=== PATIENT | male | born 1970 | race African-American/Black ===

== ENCOUNTER 2020-09-09 08:56 | Emergency (ER) | payer BC, SELFPAY ==
[2020-09-09 09:07] VITALS: BP 188/96; PULSE 92; RESP 16; TEMP 36.1; O2SAT 100
--- NOTE | 2020-09-09 09:13 | ED.SKABFB ---
HPI - Skin/Abscess/Foreign Bdy General Chief complaint: Skin/Abscess/Foreign Body Stated complaint: lt ankle sore Time Seen by Provider: 09/09/20 09:20 Source: patient and RN notes reviewed Mode of arrival: ambulatory Limitations: no limitations History of Present Illness HPI narrative: 50-year-old male with history of diabetes and diabetic neuropathy presents with concern for an open area of skin on the anterior aspect of his left ankle. Reports he took his sock off last night and a layer of skin came off with it. He denies any pain any redness any drainage, denies any known blister or wound in that area prior to last night. He denies any general malaise, fever, rash, blisters, skin changes in any other area. Denies any purulent drainage, surrounding erythema, edema from the wound. Related Data Home Medications Medication Instructions Recorded Confirmed metformin 500 mg PO DAILY 08/15/19 simvastatin mg 08/15/19 Allergies Allergy/AdvReac Type Severity Reaction Status Date / Time No Known Allergies Allergy Unknown Verified 09/09/20 09:13 Review of Systems Review of Systems: Narrative: CONSTITUTIONAL: Denies malaise, chills, sweats, or fever. CARDIOVASCULAR: Denies chest pain, palpitations, or edema. RESPIRATORY: Denies cough or dyspnea. SKIN: Reports a nonpainful wound in the anterior aspect of his left ankle MUSCULOSKELETAL: Denies myalgia. All systems reviewed & are unremarkable except as noted in HPI and below PMFSH Past Medical History Medical History (Updated 09/09/20 @ 09:31 by Radha Fiore NP) Hyperlipidemia Hypertension IDDM (insulin dependent diabetes mellitus) Family History Family History Mother Patient's mother is in good health Sibling Patient's brother is in good health Other Diabetes mellitus Family history of hypercholesterolemia Hypertension Social History Social History Smoking status: Never smoker Alcohol intake: never Comments At time of signature, agree with nursing past medical, surgical, social and family history. There is no relevant family history pertinent to the presenting complaint Exam Narrative: Exam Narrative: GENERAL: Well-appearing, well-nourished, and in no acute distress. HEAD: Normocephalic, atraumatic. EYES: PERRLA, conjunctivae clear, and EOMI. ENT: Mucous membranes moist. NECK: Supple. No lymphadenopathy CHEST: Clear to auscultation. No respiratory distress. HEART: Regular rate and rhythm. SKIN: Warm, dry. 8 cm in diameter superficial wound, with pink tissue bed, desquamation noted to the anterior ankle without surrounding erythema, edema, induration. No other skin abnormalities rashes, skin crusting, fissures, bullae noted NEURO: Alert and oriented x3. PSYCH: Normal mood and affect Course Course Emergency Course: Patient is aware of diagnosis, understands and agrees to treatment plan. Anticipatory guidance given. Patient agrees to follow-up as directed and is aware of reasons to seek care at the emergency department. Portions of this record may have been created with voice recognition software Vital Signs Vital signs: Vital Signs Temperature 97 F L 09/09/20 09:07 Pulse Rate 92 09/09/20 09:07 Respiratory Rate 16 09/09/20 09:07 Blood Pressure 188/96 H 09/09/20 09:07 Pulse Oximetry 100 09/09/20 09:07 Temperature 97 F L 09/09/20 09:14 Pulse Rate 92 09/09/20 09:14 Respiratory Rate 16 09/09/20 09:14 Blood Pressure 188/96 H 09/09/20 09:14 Pulse Oximetry 100 09/09/20 09:14 Reviewed. MDM - Skin/Abscess/Foreign Bdy MDM Narrative Medical decision making narrative: Does not appear at this time to be erythema multiforme, bullous, SJS, TEN; no evidence at this time to suggest RMSF, endocarditis or Lyme disease; patient looks well, nontoxic and is tolerating oral intake; no neurologic signs or sy
[2020-09-09 09:14] VITALS: BP 188/96; PULSE 92; RESP 16; TEMP 36.1; O2SAT 100
== END 2020-09-09 09:34 | disposition home or self-care (01) ==
PROVIDERS: Emergency Provider Nurse Practitioner; PCP Internal Medicine
DX: S91.302A Unspecified open wound, left foot, initial encounter (principal); X58.XXXA Exposure to other specified factors, initial encounter; E11.42 Type 2 diabetes mellitus with diabetic polyneuropathy; E78.5 Hyperlipidemia, unspecified; I10 Essential (primary) hypertension; Z79.84 Long term (current) use of oral hypoglycemic drugs
CPT/HCPCS: 99213; G0463

== ENCOUNTER 2023-10-06 21:24 | Inpatient (IN) | payer OTHER, SELFPAY ==
--- NOTE | ~2023-10-06 | CT_ITS ---
EXAMINATION: CT abdomen pelvis wo con DATE: 10/06/2023 22:33 INDICATION: Renal failure TECHNIQUE: Computed tomography (CT) of the abdomen and pelvis was performed without intravenous contr ast. The dose-length product (DLP) was 1435.61 mGy-cm. Automated exposure control and iterative recon struction technique were employed. COMPARISON: None FINDINGS: Minimal dependent atelectasis is present in the lung bases. The heart size is normal. The l iver, spleen, pancreas, gallbladder, and adrenal glands are normal. The left kidney is unremarkable. There is a 3.1 cm cyst of the right kidney. No pathologically enlarged abdominal or pelvic lymph node s are identified. No free intraperitoneal gas or evidence of bowel obstruction. The appendix is rey l. There is moderate lumbar spondylosis at L5-S1. A tiny umbilical hernia containing fat is noted. IMPRESSION: 1. No CT correlate for the patient's symptoms. Reviewed, dictated and finalized at location F. GAGE LOAN OFFICER ORIGINATOR
--- NOTE | ~2023-10-06 | US_ITS ---
Renal-Bladder ultrasound Clinical History: Elevated creatinine Technique: Real-time sonographic imaging of the kidneys and urinary bladder was performed. Findings: The right kidney measures 11 point cm in length and the left kidney measures 11.6 cm. There is no hydronephrosis or renal calculus identified. Renal cortical echogenicity is within normal limi ts. No solid renal mass lesion is identified. The urinary bladder is moderately distended at the time of this exam. No intraluminal echoes are iden tified. No abnormal wall thickening is seen. Impression: Unremarkable ultrasound of the kidneys and urinary bladder. Reviewed, dictated and finalized at location M. ET TECHNICIAN Impression: Unremarkable ultrasound of the kidneys and urinary bladder.
[2023-10-06 21:28] VITALS: BP 202/96; PULSE 99; RESP 17; TEMP 36.1; O2SAT 100
[2023-10-06 22:21] LABS: Basophils Percent Auto 0.6 % (0.2-1.2); Eosinophils Absolute Auto 0.1 K/mm3 (0-0.3); Eosinophils Percent Auto 1.2 % (0-4.4); Hematocrit 22.4 % (42.0-52.0); Immature Granulocyte Absolute 0.04 K/mm3 (0.00-0.031); Immature Granulocyte Percent A 0.6 % (0-0.5); Lymphocytes Absolute Auto 1.08 K/mm3 (0.9-3.2); Lymphocytes Percent Auto 14.9 % (18.3-44.2); Mean Corpuscular HGB Conc 29.9 g/dl (32-36); Mean Corpuscular Hemoglobin 25.6 pg (26-34); Mean Corpuscular Volume 85.5 fl (80-100); Mean Platelet Volume 11.6 fl (7.4-10.4); Monocytes Absolute Auto 0.5 K/mm3 (0.1-0.6); Monocytes Percent Auto 6.9 % (2.6-8.5); Neutrophils Absolute Auto 5.5 K/mm3 (1.3-6.7); Neutrophils Percent Auto 75.8 % (45.5-73.1); Platelet Count Result 197 k/mm3 (150-375); Red Blood Count 2.62 M/mm3 (4.6-6.20); Red Cell Distribution Width 13.8 % (11.5-14.5); White Blood Count 7.3 K/mm3 (4.5-10.0)
--- NOTE | 2023-10-06 22:24 | ED.GENADULT ---
HPI - General Adult General Chief complaint: Recheck/Abnormal Lab/Rx Stated complaint: elevated kidney labs Time Seen by Provider: 10/06/23 22:07 History of Present Illness HPI narrative: Patient intermittently 53-year-old gentleman who presents emergency department with chief complaint of abnormal labs. Patient had a outpatient primary care visit and they had decided to check blood work on him patient was found to have significant elevated renal function on his labs and was instructed to go to the emergency department patient currently has no complaints the patient reports that week or so ago he did not feel so well and has improved and is feeling much better now Related Data Home Medications Medication Instructions Recorded Confirmed metformin 500 mg tablet 500 mg PO DAILY 08/15/19 simvastatin 80 mg tablet mg 08/15/19 Allergies Allergy/AdvReac Type Severity Reaction Status Date / Time No Known Allergies Allergy Unknown Verified 10/06/23 23:08 Review of Systems Review of Systems: A 10 system review of systems was completed on the patient and is negative except for what is stated in the HPI. Nursing and ancillary documentation was reviewed. FORMERLY [facility] Past Medical History Medical History (Updated 10/07/23 @ 01:56 by Jeff Hart MD) Hyperlipidemia Hypertension IDDM (insulin dependent diabetes mellitus) Family History Family History Mother Patient's mother is in good health Sibling Patient's brother is in good health Other Diabetes mellitus Family history of hypercholesterolemia Hypertension Social History Social History Smoking status: Never smoker Alcohol intake: never Exam Narrative: GENERAL: Well-appearing, well-nourished, and in no acute distress. HEAD: Normocephalic, atraumatic. EYES: PERRLA and EOMI. ENT: Nares clear, no rhinorrhea or epistaxis. Mucous membranes moist. NECK: Supple. CHEST: Clear to auscultation. No respiratory distress. HEART: Regular rate and rhythm. No murmur heard. Normal peripheral pulses. ABDOMEN: Soft, nontender, nondistended, normal active bowel sounds. EXTREMITIES: Normal range of motion. trace edema to bilateral lower extremities. SKIN: Warm, dry, no rash. NEURO: No focal deficits. Alert and oriented x3. PSYCH: Normal mood and affect. Course Vital Signs Vital signs: Vital Signs Temperature 36.1 C L 10/06/23 21:28 Pulse Rate 99 10/06/23 21:28 Respiratory Rate 17 10/06/23 21:28 Blood Pressure 202/96 H 10/06/23 21:28 Pulse Oximetry 100 10/06/23 21:28 Oxygen Delivery Room Air 10/06/23 21:28 Temperature 36.7 C 10/07/23 01:46 Pulse Rate 86 10/07/23 01:46 Respiratory Rate 17 10/07/23 01:46 Blood Pressure 159/63 H 10/07/23 01:46 Pulse Oximetry 98 10/07/23 01:46 Oxygen Delivery Room Air 10/06/23 21:28 Medical Decision Making MDM Narrative Medical decision making narrative: differential diagnosis includes GI bleed, renal failure, hypertensive urgency, acute on chronic renal failure, patient is negative for acute GI bleed on rectal exam. The patient was found to be significantly anemic with a hemoglobin of 6.7. Patient's creatinine was 7.8 with a BUN of 69. The patient was also found to have had a CPK of 4198 case was discussed with both the hospitalist and Nephrology the patient will be admitted to the hospitalist service Vital Signs Vital Signs: Vital Signs Temperature 36.1 C L 10/06/23 21:28 Pulse Rate 99 10/06/23 21:28 Respiratory Rate 17 10/06/23 21:28 Blood Pressure 202/96 H 10/06/23 21:28 Pulse Oximetry 100 10/06/23 21:28 Oxygen Delivery Room Air 10/06/23 21:28 Temperature 36.7 C 10/07/23 01:46 Pulse Rate 86 10/07/23 01:46 Respiratory Rate 17 10/07/23 01:46 Blood Pressure 159/63 H 10/07/23 01:46 Pulse Oxim
[2023-10-06 22:34] LABS: Alanine Aminotransferase 22 U/L (6-50); Alkaline Phosphatase 62 U/L (38-126); Anion Gap 11 mmol/L (8-16); Aspartate Amino Transferase 33 U/L (17-59); Bilirubin,Total 0.3 mg/dL (0.2-1.3); Blood Urea Nitrogen 69 mg/dL (9-20); Carbon Dioxide 20 mmol/L (22-30); Chloride 110 mmol/L (98-107); Estimated CRCL calculation 15 ml/min; Estimated Glomerular Filt Rate 9; Glucose 117 mg/dL (65-110); Magnesium 1.1 mg/dL (1.6-2.3); Sodium 141 mmol/L (137-145)
[2023-10-06 22:39] LABS: Hemoglobin 6.7 g/dL (14.0-18.0)
[2023-10-06 22:40] LABS: Anisocytosis 1+ (NORMAL); Hypochromasia 2+ (NORMAL); Ovalocytes 1+ (NORMAL); Platelet Estimate Adequate (Adequate); Schistocytes 1+ (NORMAL)
[2023-10-06] MEDS: MAGNESIUM SULF 2 GM/WATER 50ML 2 GM/50 ML BAG IVPB (23:19)
[2023-10-06] MEDS: SODIUM CHLORIDE 0.9% IV 1,000 ML 999 ML IV CONT (23:19)
[2023-10-06 23:38] LABS: Appearance Urine Clear (Clear); Bacteria Urine None Seen /hpf; Bilirubin Urine Negative (Negative); Blood Urine 2+ (Negative); Color Urine Yellow (Yellow); Glucose Urine UA Negative (Negative); Ketones Urine Negative (Negative); Leukocyte Esterase Ur Negative LEU/UL (Negative); Nitrate Urine Negative (Negative); Protein Urine 3+ mg/dL (Negative); RBC Urine 0-2 /hpf (0-2); Specific Grav Ur 1.013 (1.001-1.035); Squamous Epithelial Cell Urine None seen /hpf (Few); Urobilinogen Urine 0.2 mg/dL (<2.0); WBC Urine 0-5 /hpf
[2023-10-06 23:44] LABS: Add Urine Microscopic? YES
[2023-10-06 23:56] VITALS: BP 178/90; PULSE 88; RESP 13; O2SAT 98
[2023-10-07] VITALS (14 sets, daily range): BP systolic 158–182; BP diastolic 63–97; PULSE 86–96; RESP 15–26; TEMP 36.3–36.7; O2SAT 95–100; BMI 33.9
[2023-10-07 00:17] LABS: Fibrinogen 489 mg/dl (215-510)
[2023-10-07 00:49] LABS: Immature Reticulocyte Fraction 9.4 % (3.0-15.9); Reticulocyte Hemoglobin Conten 29.1 pg (28.2-35.7); Reticulocyte Percent 1.11 % (0.7-4.3); Reticulocytes Absolute 0.03 M/mm3 (0.02-0.1)
[2023-10-07 00:58] LABS: Lactate Dehydrogenase 451 U/L (120-246)
[2023-10-07 01:03] LABS: Phosphorus 5.3 mg/dL (2.5-4.5)
[2023-10-07 01:05] LABS: Transferrin 149 mg/dL (206-381)
[2023-10-07 01:28] LABS: Creatine Kinase 4198 U/L (55-170)
[2023-10-07] MEDS: SODIUM CHLORIDE 0.9% IV 250 ML 30 ML IV CONT (01:32)
[2023-10-07] MEDS: TUBING, BLOOD PLUM PUMP TUBING 1 EACH XX (01:33)
[2023-10-07 02:12] LABS: Iron 47 ug/dL (49-181)
[2023-10-07 02:23] LABS: Percent Iron Saturation 20 % (20-50)
[2023-10-07] MEDS: hydrALAZINE HCL 20 MG/ML VIAL 10 MG IV PUSH (03:02)
[2023-10-07] MEDS: SODIUM CHLORIDE 0.9% IV 1,000 ML 150 ML IV CONT ×3 (03:03→20:27)
[2023-10-07 03:38] LABS: Folic Acid 10.9 ng/mL (2.76->20)
--- NOTE | 2023-10-07 04:17 | ADMGEN ---
This patient, Jose Jara, was admitted to Medical Room 253-01. Patient/family oriented to hospital policies and general routines including ID bracelet, bed and alarms, visiting hours, pain management, procedures, bathroom and other care routines, personal items, smoking policy, room service/diet, and visiting hours. Information on how to activate the Rapid Response Team has been discussed. Patient/Family are encouraged to report perceived risks to care and to ask questions if they do not understand what they are told or what they should do.
[2023-10-07 06:17] LABS: Basophils Percent Auto 0.3 % (0.2-1.2); Eosinophils Absolute Auto 0.1 K/mm3 (0-0.3); Eosinophils Percent Auto 1.1 % (0-4.4); Hematocrit 23.2 % (42.0-52.0); Immature Granulocyte Absolute 0.02 K/mm3 (0.00-0.031); Immature Granulocyte Percent A 0.3 % (0-0.5); Lymphocytes Absolute Auto 1.06 K/mm3 (0.9-3.2); Lymphocytes Percent Auto 14.5 % (18.3-44.2); Mean Corpuscular HGB Conc 30.2 g/dl (32-36); Mean Corpuscular Volume 86.2 fl (80-100); Mean Platelet Volume 11.9 fl (7.4-10.4); Monocytes Absolute Auto 0.5 K/mm3 (0.1-0.6); Monocytes Percent Auto 6.2 % (2.6-8.5); Neutrophils Absolute Auto 5.7 K/mm3 (1.3-6.7); Neutrophils Percent Auto 77.6 % (45.5-73.1); Platelet Count Result 188 k/mm3 (150-375); Red Blood Count 2.69 M/mm3 (4.6-6.20); Red Cell Distribution Width 13.7 % (11.5-14.5); White Blood Count 7.3 K/mm3 (4.5-10.0)
[2023-10-07 06:32] LABS: Complement C3 107 mg/dL (88-165)
[2023-10-07 06:34] LABS: Alanine Aminotransferase 21 U/L (6-50); Albumin Level 3.8 g/dL (3.5-5.1); Alkaline Phosphatase 66 U/L (38-126); Anion Gap 8 mmol/L (8-16); Aspartate Amino Transferase 33 U/L (17-59); Bilirubin,Total 0.3 mg/dL (0.2-1.3); Blood Urea Nitrogen 68 mg/dL (9-20); Carbon Dioxide 20 mmol/L (22-30); Chloride 113 mmol/L (98-107); Estimated CRCL calculation 15 ml/min; Estimated Glomerular Filt Rate 9; Glucose 100 mg/dL (65-110); Potassium 4.8 mmol/L (3.4-5.0); Sodium 141 mmol/L (137-145)
[2023-10-07 06:49] LABS: Iron 45 ug/dL (49-181)
[2023-10-07 06:57] LABS: Phosphorus 5.6 mg/dL (2.5-4.5)
[2023-10-07 06:59] LABS: Percent Iron Saturation 22 % (20-50)
[2023-10-07 07:09] LABS: Creatine Kinase 4366 U/L (55-170)
[2023-10-07 07:21] LABS: Hepatitis B Surface Antigen Negative (Negative)
--- NOTE | 2023-10-07 07:27 | PM.IMHP ---
H&P: HPI History of Present Illness Date/Time: 10/07/23 0:600 Chief Complaint: Low hemoglobin Narrative: 53-year-old male with a past medical history of type 2 diabetes mellitus, diabetic retinopathy essential hypertension, noncompliant with medication therapy, and obesity who presented to the ER from home after outpatient labs demonstrated acute renal failure and anemia. The patient reports that he went to his primary care physician's office for his yearly physical due to pressure from his . He reports that he had otherwise been feeling well but under further questioning he does admit to some increased fatigue and some shortness of breath with exertion over the last week. He did not realize anything was significantly wrong. Although he does have a history diabetes and hypertension he quit taking his metformin and lisinopril without informing his primary care provider. He has been off these medications for minimum of 4 months but on review of his external medication reconciliation it does not look as if he has nicely been on medications for probably a here in the he is getting them filled outside conventional methods. He denies any hematuria, changes in urinary frequency, urine amount or coloration. He has not had any dark stools or bloody stools. His Hemoccult in the ER was negative. He does have a history of hypertension and has not been checking his blood pressures at home but when he was as primary care physician's office day before yesterday his blood pressures were elevated in the 170s systolic. On arrival to the ER his blood pressures were between 202/96 to 158/90. He denies any headache or vision changes, dizziness or syncope. He does snore quite badly. He has never been evaluated for sleep apnea. He does fall asleep while watching TV in feels fatigued often. He reports chronic lower extremity swelling. He is noted to have 3+ protein in his urine but denies any foamy urine. He denies history of diabetic peripheral neuropathy but does have a history of nonhealing ulcer to his anterior dorsum of the foot and ankle on the left in the past. He had she denies changes in bowels. His Hemoccult performed in the ER was negative. He has never had a colonoscopy or EGD. He denies difficulty swallowing. He denies any petechiae or rashes. He has not had any NSAID use. He denies any recent antibiotic use. Review of Systems Review of Systems: 12 systems were reviewed with pertinent positives and negatives per HPI. Except as documented in the HPI, all other systems were reviewed and are negative. FORMERLY [facility], [facility] Past Medical History Medical History (Updated 10/07/23 @ 07:52 by Oralia Newsome DO) Diabetic retinopathy Hyperlipidemia Hypertension Obesity (BMI 30.0-34.9) Type 2 diabetes mellitus Surgical History Surgical History (Updated 10/07/23 @ 07:36 by Oralia Newsome DO) Proliferative diabetic retinopathy with history of surgery Family History Family History (Updated 10/07/23 @ 07:39 by Oralia Newsome DO) Mother Thyroid disease Sibling Thyroid disease Father Diabetes mellitus End stage renal disease Hypertension Social History Social History (Updated 10/07/23 @ 07:40 by Oralia Newsome DO) Social History: Patient lives at home with his 24 years. 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 They have (I think he has had 2 children) who are healthy. He is a lifelong nonsmoker. He does not have any significant out alcohol or illicit substance use history. Code status: Full code Surrogate decision maker: Smoking status: Never smoker Alcohol intake: never Substance use: never Do You Feel Safe in your Home?: Yes Lack of Transportation: No Lack of Food: Never True Current Housing: I Have Housing Concerned About Future Housing: No Difficulty Paying Gas/Electric Bills: No Difficulty Paying for Meds: No Currently Unemployed: No Education: Associate Degree Difficulty w/ Chil
[2023-10-07 07:39] LABS: Hepatitis B Surface Anti Res Negative
[2023-10-07] MEDS: amLODIPine BESYLATE 5 MG TABLET PO (08:39)
[2023-10-07 08:51] LABS: Hemoglobin A1C 5.9 % (<5.7)
[2023-10-07 09:14] LABS: Urea Random Urine 429 MG/DL
[2023-10-07 09:17] LABS: Creatinine Urine 76.4 mg/dL
[2023-10-07 09:18] LABS: Sodium Urine Random 81 meq/L
[2023-10-07 10:22] LABS: Total Protein Urine Random 358 mg/dL; Ur Ttl Prot Creatinine Ratio 4.69 mg/mg (0-0.20)
[2023-10-07 10:43] LABS: Eosinophil Urine Rare % (None Seen); Urine Eos QC 2nd Tech Confirmed
[2023-10-07] MEDS: CALCIUM GLUCONATE 1,000 MG/10 ML VIAL 1000 MG IV PUSH (11:08)
--- NOTE | 2023-10-07 12:17 | PM.CNNEP ---
Assessment and Plan Assessment and plan (1) Renal insufficiency: Code(s): N28.9 - Disorder of kidney and ureter, unspecified Status: Acute Assessment and Plan: acute versus chronic versus acute on chronic? no previous/recent labs to compare to prior to this admission (last labs available are from 2017 and creatinine was normal at that time) however, given relative stability in potassium and CO2 levels, suspect a chronic issue evaluation to date noted: urine electrolytes non-prerenal renal ultrasound/CT of abdomen negative for any pathology UA with 3+ protein and 2+ blood nephrotic range proteinuria noted urine eosinophils negative CPK elevated - unclear why extensive serological testing pending no improvement with IVFs to date consider renal biopsy for definitive diagnosis? follow trend of repeat labs and UOP (2) Anemia: Qualifiers: Anemia type: unspecified type Qualified Code(s): D64.9 - Anemia, unspecified Code(s): D64.9 - Anemia, unspecified Status: Acute Assessment and Plan: H/H low on admission s/p PRBC transfusion anemia studies with reasonable iron stores (but testing done post-transfusion) follow trend of H/H consider empiric TYLOR use (3) Elevated CPK: Code(s): R74.8 - Abnormal levels of other serum enzymes Status: Acute Assessment and Plan: CPK elevated - reason? follow trend contributing component to #1(?) (4) Hypertension: Qualifiers: Hypertension type: unspecified Qualified Code(s): I10 - Essential (primary) hypertension Code(s): I10 - Essential (primary) hypertension Status: Chronic Assessment and Plan: quite elevated on admission given #1, would avoid overcontrol for fear of causing renal hypoperfusion aim to keep systolic BP around 160 - 170 systolic for now (5) Type 2 diabetes mellitus: Qualifiers: Diabetes mellitus complication detail: with nephropathy Diabetes mellitus complication status: with kidney complications Diabetes mellitus intermediate insulin use: without terminal gauger supervisor use Qualified Code(s): E11.21 - Type 2 diabetes mellitus with diabetic nephropathy Code(s): E11.9 - Type 2 diabetes mellitus without complications Status: Chronic Assessment and Plan: follow accu-cheks glycemic control per hospitalists Long extensive discussion ( greater than 20 minutes) with the patient as well as his family at bedside regarding his significant renal/kidney disease as evidence by his admission labs. I voiced my concerns that the patient may have significant chronic kidney disease and there may not be a reversible component to this issue. Extensive testing is underway but I also discussed with the patient the possibility of doing a renal biopsy as it may also give a more definitive diagnosis as to the cause of his renal dysfunction whether it be acute, or chronic, or acute on chronic. I also informed the patient that if his renal function fails to improve, he may likely need renal replacement therapy/dialysis in the near future. He appeared to voice understanding to all of these issues. I will continue follow patient with you while he remains hospitalized make further recommendations as deemed necessary. Thank you for allowing me to participate in the care of this patient. History of Present Illness Reason for Consult Consult date: 10/07/23 Reason for consult: acute renal failure (versus chronic kidney disease) Chief Complaint Chief complaint: Renal Failure,Anemia History of Present Illness Narrative: The patient is a 53-year-old male with a past medical history as outlined below who presented to [facility] room on the recommendation of his primary care physician due to abnormal outpatient labs. The patient went to see his primary care physician recently for his yearly physical although he freely admit
--- NOTE | 2023-10-07 12:17 | P.CONNP_ITS ---
Assessment and Plan Assessment and plan (1) Renal insufficiency: Code(s): N28.9 - Disorder of kidney and ureter, unspecified Status: Acute Assessment and Plan: * acute versus chronic versus acute on chronic? * no previous/recent labs to compare to prior to this admission (last labs available are from 2017 and creatinine was normal at that time) * however, given relative stability in potassium and CO2 levels, suspect a chronic issue * evaluation to date noted: * urine electrolytes non-prerenal * renal ultrasound/CT of abdomen negative for any pathology * UA with 3+ protein and 2+ blood * nephrotic range proteinuria noted * urine eosinophils negative * CPK elevated - unclear why * extensive serological testing pending * no improvement with IVFs to date * consider renal biopsy for definitive diagnosis? * follow trend of repeat labs and UOP (2) Anemia: Qualifiers: Anemia type: unspecified type Qualified Code(s): D64.9 - Anemia, unspecified Code(s): D64.9 - Anemia, unspecified Status: Acute Assessment and Plan: * H/H low on admission * s/p PRBC transfusion * anemia studies with reasonable iron stores (but testing done post-transfusion) * follow trend of H/H * consider empiric TYLOR use (3) Elevated CPK: Code(s): R74.8 - Abnormal levels of other serum enzymes Status: Acute Assessment and Plan: * CPK elevated - reason? * follow trend * contributing component to #1(?) (4) Hypertension: Qualifiers: Hypertension type: unspecified Qualified Code(s): I10 - Essential (p rimary) hypertension Code(s): I10 - Essential (primary) hypertension Status: Chronic Assessment and Plan: * quite elevated on admission * given #1, would avoid overcontrol for fear of causing renal hypoperfusion * aim to keep systolic BP around 160 - 170 systolic for now (5) Type 2 diabetes mellitus: Qualifiers: Diabetes mellitus complication detail: with nephropathy Diabetes mellitus complication status: with kidney complications Diabetes mellitus intermediate card tender insulin use: without halfway use Qualified Code(s): E11.21 - Type 2 diabetes mellitus with diabetic nephropathy Code(s): E11.9 - Type 2 diabetes mellitus without complications Status: Chronic Assessment and Plan: * follow accu-cheks * glycemic control per hospitalists Long extensive discussion ( greater than 20 minutes) with the patient as well as his family at bedside regarding his significant renal/kidney disease as evidence by his admission labs. I voiced my concerns that the patient may have significant chronic kidney disease and there may not be a reversible component to this issue. Extensive testing is underway but I also discussed with the patient the possibility of doing a renal biopsy as it may also give a more definitive diagnosis as to the cause of his renal dysfunction whether it be acute, or chronic, or acute on chronic. I also informed the patient that if his renal function fails to improve, he may likely need renal replacement therapy/dialysis in the near future. He appeared to voice understanding to all of these issues. I will continue follow patient with you while he remains hospitalized make further recommendations as deemed necessary. Thank you for allowing me to participate in the care of this patient. History of Present Illness Reason for Consult Consult date: 10/07/23 Reason for consult: acute renal failure (versus chronic kidney disease) Chief Complaint Chief compl
--- NOTE | 2023-10-07 14:49 | PM.IMPN ---
Progress Note: A&P Assessment and Plan (1) Acute renal failure: Qualifiers: Acute renal failure type: unspecified Qualified Code(s): N17.9 - Acute kidney failure, unspecified Code(s): N17.9 - Acute kidney failure, unspecified Status: Acute Assessment and Plan: Patient has new onset of renal failure. He denies prior history of chronic kidney disease. His renal failure is likely combination of complications from is uncontrolled hypertension in diabetes. Patient does have significant elevation in his CK so some component of rhabdomyolysis is also possible. However the patient has not been sedentary ahead in the extreme muscle exertion or injury. Will repeat electrolyte panel in a.m. as well as anemia labs and CBC. Will await further recommendations from Nephrology. Will monitor strict I&O's. Renal ultrasound no abnormalities (2) Hypertension: Qualifiers: Hypertension type: unspecified Qualified Code(s): I10 - Essential (primary) hypertension Code(s): I10 - Essential (primary) hypertension Status: Acute Assessment and Plan: Patient has stopped taking his hypertensive medication. He takes lisinopril at home. Will discontinue this as he should be on a CCB. (3) Type 2 diabetes mellitus: Qualifiers: Diabetes mellitus chcf insulin use: without long term care phlebotomist use Diabetes mellitus complication status: with kidney complications Diabetes mellitus complication detail: with nephropathy Qualified Code(s): E11.21 - Type 2 diabetes mellitus with diabetic nephropathy Code(s): E11.9 - Type 2 diabetes mellitus without complications Status: Acute Assessment and Plan: Insulin Lispro sliding scale, Accu-checks qAc and HS and Hold oral hypoglycemics Initiate hypoglycemic precautions HgbA1c 5.9 (4) Elevated CPK: Code(s): R74.8 - Abnormal levels of other serum enzymes Status: Acute Assessment and Plan: Patient does have significant elevation in his CK so some component of rhabdomyolysis is also possible. However the patient has not been sedentary ahead in the extreme muscle exertion or injury. Continue to trend labs (5) Anemia: Qualifiers: Anemia type: unspecified type Qualified Code(s): D64.9 - Anemia, unspecified Code(s): D64.9 - Anemia, unspecified Status: Acute Assessment and Plan: no sign of acute bleed patient found to have a hemoglobin hematocrit of 6.7/22.4. Hemoccult negative. Patient has mildly low iron. Add supplementation. Anemia could be due to kidney dysfunction. (6) History of noncompliance with medical treatment: Code(s): Z91.199 - Patient's noncompliance with other medical treatment and regimen due to unspecified reason Status: Acute (7) Snoring: Code(s): R06.83 - Snoring Status: Acute Assessment and Plan: Patient does have snoring, crowded posterior oropharynx, large neck circumference and excessive daytime sleepiness. He would benefit from outpatient polysomnogram. Apnea link ordered. Subjective Date/time seen: 10/07/23 14:49 Interval history: Patient sitting up in bed with at bedside. Patient has no complaints at this time and says that he feels just like himself. He was told to come to the hospital due to his lab results. He states that he urinates frequently and denies any new issues with this. Also denies chest pain, shortness a breath, nausea, vomiting. Exam Narrative: GENERAL: Comfortable, no acute distress HENMT: moist mucous membranes EYES: EOM intact b/l NECK: no lymphadenopathy RESPIRATORY: clear to auscultation CARDIO: RRR GI: soft, nontender, bowel sounds present SKIN: no rashes EXTREMITIES: no edema, redness or tenderness Objective Data Vital Signs Vital Signs: Vital Signs - 24 hr 10/06/23 21:28 10/06/23 23:56 10/07/23 0
[2023-10-07] MEDS: MAGNESIUM SULF 2 GM/WATER 50ML 2 GM/50 ML BAG IVPB (16:07)
[2023-10-07 17:10] LABS: Glucose Point of Care 105 mg/dl (65-105)
--- NOTE | 2023-10-07 19:24 | PC.NURSE ---
I reviewed the License Pending RN's documentation and agree with the findings.
[2023-10-07 21:32] LABS: Glucose Point of Care 90 mg/dl (65-105)
[2023-10-08] VITALS (16 sets, daily range): BP systolic 132–180; BP diastolic 66–90; PULSE 77–87; RESP 12–20; TEMP 36.3–37.1; O2SAT 93–100
--- NOTE | 2023-10-08 | ECHO_ITS ---
Patient Info Name: Jose Jara Age: 53 years : 1970 Gender: Male Ht: 75 in Wt: 264 lbs BSA: 2.55 m2 BP: 135 / 72 mmHg Technical Quality: Good Exam Date: 10/08/2023 3:09 PM Exam Location: [facility] Lab Patient Status: Inpatient Admit Date: 10/07/2023 Staff Ordering Physician: Irina Lloyd PA-C [employer] Worker: Yuli Xiao RDCS Attending Provider: Oralia Newsome DO Referring Physician: Gabino SEAMAN; Exam Type: CA echo doppler color flow Study Info Indications - Lower extremity edema Complete two-dimensional, color flow and Doppler transthoracic echocardiogram is performed. Summary 1. Complete two-dimensional, color flow and Doppler transthoracic echocardiogram is performed. 2. Left ventricular chamber dimension is moderately enlarged. 3. Left ventricular systolic function is normal, estimated at 55-60%. 4. The left ventricular diastolic function is normal. 5. Left atrial chamber dimension is mildly enlarged. 6. No pulmonary hypertension, estimated pulmonary arterial systolic pressure is 16 mmHg. 7. There is trace pulmonic regurgitation. Left Ventricle Tissue doppler E/e' is not performed. Left ventricular chamber dimension is moderately enlarged. Left ventricular systolic function is normal, estimated at 55-60%. The left ventricular diastolic function is normal. Right Ventricle Right ventricular systolic function is normal and with normal TAPSE 2.1 cm. Right ventricular chamber dimension is normal. Left Atria Left atrial chamber dimension is mildly enlarged. Right Atria Right atrial chamber dimension is normal. Aortic Valve The aortic valve is trileaflet. There is no aortic valve stenosis. There is no aortic valve regurgitation. Pulmonic Valve There is trace pulmonic regurgitation. Mitral Valve There is no mitral valve stenosis. There is no mitral valve regurgitation. Tricuspid Valve There is no tricuspid valve regurgitation. No pulmonary hypertension, estimated pulmonary arterial systolic pressure is 16 mmHg. Pericardium/Pleural There is no pericardial effusion. Inferior Vena Cava Normal inferior vena cava with >50% collapse upon inspiration consistent with normal right atrial pressure, 5 mmHg. Aorta The aortic root size at the sinus of Valsalva is normal. Left Ventricular Outflow Tract Name Value Normal LVOT 2D LVOT Diameter 2.3 cm LVOT Doppler LVOT Peak Gradient 4 mmHg LVOT Mean Gradient 2 mmHg LVOT VTI 22 cm LVOT VTI/AV VTI Ratio 0.9 LVOT Stroke Volume 93 ml LVOT CO 7.2 l/min LVOT CI 2.8 l/min/m2 Pulmonic Valve Name Value Normal RVOT Doppler RVOT Peak Gradient 4 mmHg PV Doppler PV Peak Grad
[2023-10-08 00:19] LABS: Glucose Point of Care 88 mg/dl (65-105)
[2023-10-08] MEDS: SODIUM CHLORIDE 0.9% IV 1,000 ML 150 ML IV CONT (03:15)
[2023-10-08 05:15] LABS: Hematocrit 21.2 % (42.0-52.0); Mean Corpuscular HGB Conc 30.2 g/dl (32-36); Mean Corpuscular Volume 86.2 fl (80-100); Platelet Count Result 160 k/mm3 (150-375); Red Blood Count 2.46 M/mm3 (4.6-6.20); Red Cell Distribution Width 13.8 % (11.5-14.5); White Blood Count 6.9 K/mm3 (4.5-10.0)
[2023-10-08 05:18] LABS: Hemoglobin 6.4 g/dL (14.0-18.0)
[2023-10-08 05:34] LABS: Anion Gap 11 mmol/L (8-16); Blood Urea Nitrogen 63 mg/dL (9-20); Calcium 5.1 mg/dL (8.4-10.2); Carbon Dioxide 17 mmol/L (22-30); Chloride 115 mmol/L (98-107); Cholesterol 184 mg/dL (0-200); Estimated CRCL calculation 15 ml/min; Estimated Glomerular Filt Rate 9; Glucose 96 mg/dL (65-110); HDL Direct 24 mg/dL; Magnesium 1.7 mg/dL (1.6-2.3); Potassium 5.2 mmol/L (3.4-5.0); Sodium 143 mmol/L (137-145); Triglycerides 168 mg/dL (<150)
[2023-10-08 05:38] LABS: LDL Cholesterol Direct 99 mg/dL
[2023-10-08 05:44] LABS: Creatine Kinase 3620 U/L (55-170)
[2023-10-08 08:35] LABS: Glucose Point of Care 85 mg/dl (65-105)
[2023-10-08] MEDS: EPOETIN ALFA-EPBX 10,000 UNITS/ML VIAL 10000 UNITS SUB-Q (10:13)
[2023-10-08] MEDS: NIFEdipine 30 MG TAB.ER.24 PO (10:15)
[2023-10-08] MEDS: METOPROLOL TARTRATE 25 MG TABLET PO ×2 (10:15→20:41)
[2023-10-08] MEDS: SODIUM BICARBONATE TAB 650 MG TABLET PO ×2 (10:16→17:52)
--- NOTE | 2023-10-08 11:01 | PM.PNNEP ---
Progress Note: A&P Assessment and Plan (1) Renal insufficiency: Code(s): N28.9 - Disorder of kidney and ureter, unspecified Status: Acute Assessment and Plan: acute versus chronic versus acute on chronic? no previous/recent labs to compare to prior to this admission (last labs available are from 2017 and creatinine was normal at that time) however, given relative stability in potassium and CO2 levels, suspect a chronic issue evaluation to date noted: urine electrolytes non-prerenal renal ultrasound/CT of abdomen negative for any pathology UA with 3+ protein and 2+ blood nephrotic range proteinuria noted urine eosinophils negative CPK elevated - unclear why extensive serological testing pending no improvement with IVFs to date - will stop consider renal biopsy for definitive diagnosis (could be done as an outpatient) follow trend of repeat labs and UOP (2) Anemia: Qualifiers: Anemia type: unspecified type Qualified Code(s): D64.9 - Anemia, unspecified Code(s): D64.9 - Anemia, unspecified Status: Acute Assessment and Plan: H/H low on admission and again this AM s/p PRBC transfusion; to be done again today anemia studies with reasonable iron stores (but testing done post-transfusion) follow trend of H/H dose with Epogen today (3) Elevated CPK: Code(s): R74.8 - Abnormal levels of other serum enzymes Status: Acute Assessment and Plan: CPK elevated - reason? follow trend - improving contributing component to #1(?) (4) Hypertension: Qualifiers: Hypertension type: unspecified Qualified Code(s): I10 - Essential (primary) hypertension Code(s): I10 - Essential (primary) hypertension Status: Chronic Assessment and Plan: quite elevated on admission given #1, would avoid overcontrol for fear of causing renal hypoperfusion aim to keep systolic BP around 160 - 170 systolic for now changed amlodipine to nifedipine; already on metoprolol (5) Type 2 diabetes mellitus: Qualifiers: Diabetes mellitus penitentiary insulin use: without penitentiary use Diabetes mellitus complication status: with kidney complications Diabetes mellitus complication detail: with nephropathy Qualified Code(s): E11.21 - Type 2 diabetes mellitus with diabetic nephropathy Code(s): E11.9 - Type 2 diabetes mellitus without complications Status: Chronic Assessment and Plan: follow accu-cheks glycemic control per hospitalists Will continue to follow. Subjective Date/time seen: 10/08/23 11:01 Interval history: Follow-up for elevated creatinine/renal insufficiency (with suspicion that this is chronic kidney disease). No apparent distress noted at the time of my visit; BP still running high with medication adjustments noted; H/H low again by AM labs so getting PRBC transfusion today; no apparent distress noted. Exam Narrative: General: WD/WN male in NAD Heart: normal S1 and S2; no rub Lungs: clear to auscultation Abdomen: soft, nontender, nondistended, positive bowel sounds Extremities: no cyanosis or clubbing; no edema Skin: warm and dry Objective Data Vital Signs Vital Signs: Vital Signs Temp Pulse Resp BP Pulse Ox O2 Del Method 10/08/23 10:48 98.2 F 87 16 164/83 H 98 10/08/23 10:15 86 10/08/23 05:20 97.4 F L 86 20 180/90 H 96 10/07/23 22:15 95 Room Air 10/07/23 20:00 Room Air 10/07/23 21:25 97.8 F 86 20 173/91 H 95 Intake/Output Intake/Output: Intake & Output 10/05/23 10/06/23 10/07/23 10/08/23 23:59 23:59 23:59 23:59 Intake Total 4480 2200 Output Total 300 2100 Balance 4180 100 Meds/Results Medications: Active Medications Generic Name Dose Route Start Last Admin Trade Name Freq PRN Reason Stop Dose Admin Calcium Carbonate 1,000 mg 10/08/23 12:00 10/08/23 12:45 Calcium Carb
--- NOTE | 2023-10-08 11:01 | P.PNNP_ITS ---
Progress Note: A&P Assessment and Plan (1) Renal insufficiency: Code(s): N28.9 - Disorder of kidney and ureter, unspecified Status: Acute Assessment and Plan: * acute versus chronic versus acute on chronic? * no previous/recent labs to compare to prior to this admission (last labs available are from 2017 and creatinine was normal at that time) * however, given relative stability in potassium and CO2 levels, suspect a chronic issue * evaluation to date noted: * urine electrolytes non-prerenal * renal ultrasound/CT of abdomen negative for any pathology * UA with 3+ protein and 2+ blood * nephrotic range proteinuria noted * urine eosinophils negative * CPK elevated - unclear why * extensive serological testing pending * no improvement with IVFs to date - will stop * consider renal biopsy for definitive diagnosis (could be done as an outpatient) * follow trend of repeat labs and UOP (2) Anemia: Qualifiers: Anemia type: unspecified type Qualified Code(s): D64.9 - Anemia, unspecified Code(s): D64.9 - Anemia, unspecified Status: Acute Assessment and Plan: * H/H low on admission and again this AM * s/p PRBC transfusion; to be done again today * anemia studies with reasonable iron stores (but testing done post-transfusion) * follow trend of H/H * dose with Epogen today (3) Elevated CPK: Code(s): R74.8 - Abnormal levels of other serum enzymes Status: Acute Assessment and Plan: * CPK elevated - reason? * follow trend - improving * contributing component to #1(?) (4) Hypertension: Qualifiers: Hypertension type: unspecified Qualified Code(s): I10 - Essential (primary) hypertension Code(s): I10 - Essential (primary) hypertension Status: Chronic Assessment and Plan: * quite elevated on admission * given #1, would avoid overcontrol for fear of causing renal hypoperfusion * aim to keep systolic BP around 160 - 170 systolic for now * changed amlodipine to nifedipine; already on metoprolol (5) Type 2 diabetes mellitus: Qualifiers: Diabetes mellitus custodial insulin use: without production clerk use Diabetes mellitus complication status: with kidney complications Diabetes mellitus complication detail: with nephropathy Qualified Code(s): E11.21 - Type 2 diabetes mellitus with diabetic nephropathy Code(s): E11.9 - Type 2 diabetes mellitus without complications Status: Chronic Assessment and Plan: * follow accu-cheks * glycemic control per hospitalists Will continue to follow. Subjective Date/time seen: 10/08/23 11:01 Interval history: Follow-up for elevated creatinine/renal insufficiency (with suspicion that this is chronic kidney disease). No apparent distress noted at the time of my visit; BP still running high with medication adjustments noted; H/H low again by AM labs so getting PRBC transfusion today; no apparent distress noted. Exam Narrative: General: WD/WN male in NAD Heart: normal S1 and S2; no rub Lungs: clear to auscultation Abdomen: soft, nontender, nondistended, positive bowel sounds Extremities: no cyanosis or clubbing; no edema Skin: warm and dry Objective Data Vital Signs Vital Signs: Vital Signs Temp Pulse Resp BP Pulse Ox O2 Del Method 10/08/23 10:48 98.2 F 87 16 164/83 H 98 0
[2023-10-08 11:57] LABS: Glucose Point of Care 94 mg/dl (65-105)
[2023-10-08] MEDS: CALCIUM CARBONATE (OSCAL) 500 MG TABLET 1000 MG PO ×2 (12:45→17:52)
--- NOTE | 2023-10-08 14:16 | P.PNIM_ITS ---
Progress Note: A&P Assessment and Plan (1) Acute renal failure: Qualifiers: Acute renal failure type: unspecified Qualified Code(s): N17.9 - Acute kidney failure, unspecified Code(s): N17.9 - Acute kidney failure, unspecified Status: Acute Assessment and Plan: * Patient has new onset of renal failure. * He denies prior history of chronic kidney disease. * His renal failure is likely combination of complications from is uncontrolled hypertension in diabetes. * Patient does have significant elevation in his CK so some component of rhabdomyolysis is also possible. * However the patient has not been sedentary ahead in the extreme muscle exertion or injury. * Will repeat electrolyte panel in a.m. as well as anemia labs and CBC. * Will await further recommendations from Nephrology. * Will monitor strict I&O's. * Renal ultrasound no abnormalities * Not improved with IV fluids. (2) Hypertension: Qualifiers: Hypertension type: unspecified Qualified Code(s): I10 - Essential (primary) hypertension Code(s): I10 - Essential (primary) hypertension Status: Chronic Assessment and Plan: * Patient has stopped taking his hypertensive medication. * He takes lisinopril at home. * Lisinopril discontinued and nephrology recommending nifedipine 30 mg daily. * Due to severe hypertension added metoprolol 25 mg p.o. b.i.d.. (3) Type 2 diabetes mellitus: Qualifiers: Diabetes mellitus alf insulin use: without alf use Diabetes mellitus complication status: with kidney complications Diabetes mellitus complication detail: with nephropathy Qualified Code(s): E11.21 - Type 2 diabetes mellitus with diabetic nephropathy Code(s): E11.9 - Type 2 diabetes mellitus without complications Status: Chronic Assessment and Plan: * Insulin Lispro sliding scale, Accu-checks qAc and HS and Hold oral hypoglycemics * Initiate hypoglycemic precautions * HgbA1c 5.9 (4) Elevated CPK: Code(s): R74.8 - Abnormal levels of other serum enzymes Status: Acute Assessment and Plan: Patient does have significant elevation in his CK so some component of rhabdomyolysis is also possible. However the patient has not been sedentary ahead in the extreme muscle exertion or injury. * Continue to trend labs (5) Anemia: Qualifiers: Anemia type: unspecified type Qualified Code(s): D64.9 - Anemia, unspecified Code(s): D64.9 - Anemia, unspecified Status: Acute Assessment and Plan: no sign of acute bleed patient found to have a hemoglobin hematocrit of 6.7/22.4. * Hemoccult negative. * Patient has mildly low iron. Add supplementation. * Anemia could be due to kidney dysfunction. * / H&H of 6.4/21.2. 2 units of PRBCs ordered. (6) History of noncompliance with medical treatment: Code(s): Z91.199 - Patient's noncompliance with other medical treatment and regimen due to unspecified reason Status: Acute (7) Snoring: Code(s): R06.83 - Snoring Status: Acute Assessment and Plan: * Patient does have snoring, crowded posterior oropharynx, large neck circumference and excessive daytime sleepiness. * He would benefit from outpatient polysomnogram. * Apnea link result was a 7 with high suspicion for breathing disorder. Subjective Date/time seen: 10/08/23 14:16 Interval history: Patient doing well wi
--- NOTE | 2023-10-08 14:16 | PM.IMPN ---
Progress Note: A&P Assessment and Plan (1) Acute renal failure: Qualifiers: Acute renal failure type: unspecified Qualified Code(s): N17.9 - Acute kidney failure, unspecified Code(s): N17.9 - Acute kidney failure, unspecified Status: Acute Assessment and Plan: Patient has new onset of renal failure. He denies prior history of chronic kidney disease. His renal failure is likely combination of complications from is uncontrolled hypertension in diabetes. Patient does have significant elevation in his CK so some component of rhabdomyolysis is also possible. However the patient has not been sedentary ahead in the extreme muscle exertion or injury. Will repeat electrolyte panel in a.m. as well as anemia labs and CBC. Will await further recommendations from Nephrology. Will monitor strict I&O's. Renal ultrasound no abnormalities Not improved with IV fluids. (2) Hypertension: Qualifiers: Hypertension type: unspecified Qualified Code(s): I10 - Essential (primary) hypertension Code(s): I10 - Essential (primary) hypertension Status: Chronic Assessment and Plan: Patient has stopped taking his hypertensive medication. He takes lisinopril at home. Lisinopril discontinued and nephrology recommending nifedipine 30 mg daily. Due to severe hypertension added metoprolol 25 mg p.o. b.i.d.. (3) Type 2 diabetes mellitus: Qualifiers: Diabetes mellitus correction insulin use: without longwall foreman use Diabetes mellitus complication status: with kidney complications Diabetes mellitus complication detail: with nephropathy Qualified Code(s): E11.21 - Type 2 diabetes mellitus with diabetic nephropathy Code(s): E11.9 - Type 2 diabetes mellitus without complications Status: Chronic Assessment and Plan: Insulin Lispro sliding scale, Accu-checks qAc and HS and Hold oral hypoglycemics Initiate hypoglycemic precautions HgbA1c 5.9 (4) Elevated CPK: Code(s): R74.8 - Abnormal levels of other serum enzymes Status: Acute Assessment and Plan: Patient does have significant elevation in his CK so some component of rhabdomyolysis is also possible. However the patient has not been sedentary ahead in the extreme muscle exertion or injury. Continue to trend labs (5) Anemia: Qualifiers: Anemia type: unspecified type Qualified Code(s): D64.9 - Anemia, unspecified Code(s): D64.9 - Anemia, unspecified Status: Acute Assessment and Plan: no sign of acute bleed patient found to have a hemoglobin hematocrit of 6.7/22.4. Hemoccult negative. Patient has mildly low iron. Add supplementation. Anemia could be due to kidney dysfunction. / H&H of 6.4/21.2. 2 units of PRBCs ordered. (6) History of noncompliance with medical treatment: Code(s): Z91.199 - Patient's noncompliance with other medical treatment and regimen due to unspecified reason Status: Acute (7) Snoring: Code(s): R06.83 - Snoring Status: Acute Assessment and Plan: Patient does have snoring, crowded posterior oropharynx, large neck circumference and excessive daytime sleepiness. He would benefit from outpatient polysomnogram. Apnea link result was a 7 with high suspicion for breathing disorder. Subjective Date/time seen: 10/08/23 14:16 Interval history: Patient doing well with no new complaints at this time. There was some lower extremity edema noted on exam. When asking the patient about this he says that the past couple months he has noticed this. This could be due to patient's kidney dysfunction. Will check echocardiogram to rule out cardiac issues. Discussed with Nephrology and it is likely due to patient's uncontrolled hypertension that he has acute on chronic kidney disease. Exam Narrative: GENERAL: Comfortable, no acute distress
[2023-10-08 16:38] LABS: Glucose Point of Care 99 mg/dl (65-105)
[2023-10-08 23:09] LABS: Glucose Point of Care 101 mg/dl (65-105)
[2023-10-08 23:25] LABS: Hematocrit 27.5 % (42.0-52.0); Hemoglobin 8.5 g/dL (14.0-18.0)
[2023-10-09 00:08] LABS: Glucose Point of Care 92 mg/dl (65-105)
[2023-10-09 05:17] LABS: Hematocrit 27.2 % (42.0-52.0); Hemoglobin 8.3 g/dL (14.0-18.0); Mean Corpuscular HGB Conc 30.5 g/dl (32-36); Mean Corpuscular Hemoglobin 26.9 pg (26-34); Mean Corpuscular Volume 88.3 fl (80-100); Mean Platelet Volume 11.7 fl (7.4-10.4); Platelet Count Result 174 k/mm3 (150-375); Red Blood Count 3.08 M/mm3 (4.6-6.20); White Blood Count 9.1 K/mm3 (4.5-10.0)
[2023-10-09 05:28] LABS: Alanine Aminotransferase 19 U/L (6-50); Albumin Level 3.9 g/dL (3.5-5.1); Alkaline Phosphatase 60 U/L (38-126); Anion Gap 11 mmol/L (8-16); Aspartate Amino Transferase 32 U/L (17-59); Bilirubin,Total 0.3 mg/dL (0.2-1.3); Blood Urea Nitrogen 70 mg/dL (9-20); Calcium 5.8 mg/dL (8.4-10.2); Carbon Dioxide 16 mmol/L (22-30); Chloride 113 mmol/L (98-107); Estimated CRCL calculation 15 ml/min; Estimated Glomerular Filt Rate 9; Glucose 91 mg/dL (65-110); Phosphorus 5.9 mg/dL (2.5-4.5); Potassium 5.6 mmol/L (3.4-5.0); Sodium 140 mmol/L (137-145)
[2023-10-09 07:00] VITALS: BP 167/88; PULSE 81; RESP 16; TEMP 36.6; O2SAT 93
[2023-10-09 08:07] LABS: Glucose Point of Care 84 mg/dl (65-105)
[2023-10-09] MEDS: SODIUM ZIRCONIUM CYCLOSILICATE 10 GM POWD.PACK PO ×3 (08:07→21:10)
[2023-10-09 10:16] VITALS: PULSE 80
[2023-10-09] MEDS: CALCIUM CARBONATE (OSCAL) 500 MG TABLET 1000 MG PO (10:16)
[2023-10-09] MEDS: NIFEdipine 30 MG TAB.ER.24 PO (10:16)
[2023-10-09] MEDS: METOPROLOL TARTRATE 25 MG TABLET PO ×2 (10:16→20:17)
--- NOTE | 2023-10-09 11:30 | P.PNNP_ITS ---
Progress Note: A&P Assessment and Plan (1) Renal insufficiency: Code(s): N28.9 - Disorder of kidney and ureter, unspecified Status: Acute Assessment and Plan: * relatively stable * acute versus chronic versus acute on chronic? * suspect chronic issue... * no previous/recent labs to compare to prior to this admission (last labs available are from 2017 and creatinine was normal at that time) * however, given relative stability in potassium and CO2 levels, suspect a chronic issue * evaluation to date noted: * urine electrolytes non-prerenal * renal ultrasound/CT of abdomen negative for any pathology * UA with 3+ protein and 2+ blood * nephrotic range proteinuria noted * urine eosinophils negative * CPK elevated - unclear why * extensive serological testing pending * no improvement with IVFs * consider renal biopsy for definitive diagnosis (could be done as an outpatient) * follow trend of repeat labs and UOP (2) Anemia: Qualifiers: Anemia type: unspecified type Qualified Code(s): D64.9 - Anemia, unspecified Code(s): D64.9 - Anemia, unspecified Status: Acute Assessment and Plan: * H/H low on admission and again this AM * s/p PRBC transfusion; to be done again today * anemia studies with reasonable iron stores (but testing done post-transfusion) * follow trend of H/H * dose with Epogen while hospitalized (3) Hyperkalemia: Code(s): E87.5 - Hyperkalemia Status: Acute Assessment and Plan: * related to PRBC transfusion * lokelma ordered to stabilize * follow repeat K+ levels (4) Hypocalcemia: Code(s): E83.51 - Hypocalcemia Status: Acute Assessment and Plan: * suspect related to renal osteodystrophy and renal dysfunction * on calcium carbonate to help improve calcium and to work as phosphorus binder * check intact PTH and Vitamin D levels (5) Metabolic acidosis: Code(s): E87.20 - Acidosis, unspecified Status: Acute Assessment and Plan: * related to renal insufficiency likely worsened by IVFs and PRBC transfusions * on sodium bicarbonate to compensate * follow CO2 levels (6) Elevated CPK: Code(s): R74.8 - Abnormal levels of other serum enzymes Status: Acute Assessment and Plan: * CPK elevated - reason? * follow trend - improving * contributing component to #1(?) (7) Hypertension: Qualifiers: Hypertension type: unspecified Qualified Code(s): I10 - Essential (primary) hypertension Code(s): I10 - Essential (primary) hypertension Status: Chronic Assessment and Plan: * quite elevated on admission * given #1, would avoid overcontrol for fear of causing renal hypoperfusion * aim to keep systolic BP around 160 - 170 systolic for now * changed amlodipine to nifedipine; already on metoprolol (8) Type 2 diabetes mellitus: Qualifiers: Diabetes mellitus salvage determiner insulin use: without half-way use Diabetes mellitus complication status: with kidney complications Diabetes mellitus complication detail: with nephropathy Qualified Code(s): E11.21 - Type 2 diabetes mellitus with diabetic nephropathy Code(s): E11.9 - Type 2 diabetes mellitus without complications Status: Chronic Assessment and Plan: * follow accu-cheks * glycemic control per hospitalists Will continue to follow. Subjective Date/time seen: 10/09/23 11:30 Interval history: Follow-up for elevated creatinine/renal i
--- NOTE | 2023-10-09 11:30 | PM.PNNEP ---
Progress Note: A&P Assessment and Plan (1) Renal insufficiency: Code(s): N28.9 - Disorder of kidney and ureter, unspecified Status: Acute Assessment and Plan: relatively stable acute versus chronic versus acute on chronic? suspect chronic issue... no previous/recent labs to compare to prior to this admission (last labs available are from 2017 and creatinine was normal at that time) however, given relative stability in potassium and CO2 levels, suspect a chronic issue evaluation to date noted: urine electrolytes non-prerenal renal ultrasound/CT of abdomen negative for any pathology UA with 3+ protein and 2+ blood nephrotic range proteinuria noted urine eosinophils negative CPK elevated - unclear why extensive serological testing pending no improvement with IVFs consider renal biopsy for definitive diagnosis (could be done as an outpatient) follow trend of repeat labs and UOP (2) Anemia: Qualifiers: Anemia type: unspecified type Qualified Code(s): D64.9 - Anemia, unspecified Code(s): D64.9 - Anemia, unspecified Status: Acute Assessment and Plan: H/H low on admission and again this AM s/p PRBC transfusion; to be done again today anemia studies with reasonable iron stores (but testing done post-transfusion) follow trend of H/H dose with Epogen while hospitalized (3) Hyperkalemia: Code(s): E87.5 - Hyperkalemia Status: Acute Assessment and Plan: related to PRBC transfusion lokelma ordered to stabilize follow repeat K+ levels (4) Hypocalcemia: Code(s): E83.51 - Hypocalcemia Status: Acute Assessment and Plan: suspect related to renal osteodystrophy and renal dysfunction on calcium carbonate to help improve calcium 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 follow trend - improving contributing component to #1(?) (7) Hypertension: Qualifiers: Hypertension type: unspecified Qualified Code(s): I10 - Essential (primary) hypertension Code(s): I10 - Essential (primary) hypertension Status: Chronic Assessment and Plan: quite elevated on admission given #1, would avoid overcontrol for fear of causing renal hypoperfusion aim to keep systolic BP around 160 - 170 systolic for now changed amlodipine to nifedipine; already on metoprolol (8) Type 2 diabetes mellitus: Qualifiers: Diabetes mellitus shelter insulin use: without shelter use Diabetes mellitus complication status: with kidney complications Diabetes mellitus complication detail: with nephropathy Qualified Code(s): E11.21 - Type 2 diabetes mellitus with diabetic nephropathy Code(s): E11.9 - Type 2 diabetes mellitus without complications Status: Chronic Assessment and Plan: follow accu-cheks glycemic control per hospitalists Will continue to follow. Subjective Date/time seen: 10/09/23 11:30 Interval history: Follow-up for elevated creatinine/renal insufficiency (with suspicion that this is chronic kidney disease). Tolerated PRBC trasnsfusion yesterday without any issues or problems; noted issues with hyperkalemia, metoabolic acidosis, and hypocalcemia by AM labs; remains in good spirits when seen; no events overnight or earlier this AM. Exam Narrative: General: WD/WN male in NAD Heart: normal S1 and S2; no rub Lungs: clear to auscultation Abdomen: soft, nontender, nondistended, positive bowel sounds Ext
[2023-10-09 12:04] LABS: Glucose Point of Care 94 mg/dl (65-105)
[2023-10-09 12:38] LABS: Kappa\\Lambda Light Chains 1.94 (0.26-1.65); Lambda Light Chain 61.8 mg/L (5.7-26.3)
[2023-10-09] MEDS: CALCIUM CARBONATE (OSCAL) 500 MG TABLET 1500 MG PO ×2 (13:06→17:57)
[2023-10-09] MEDS: SODIUM BICARBONATE TAB 650 MG TABLET PO (13:06)
[2023-10-09 13:29] LABS: Hematocrit 28.2 % (42.0-52.0); Hemoglobin 8.5 g/dL (14.0-18.0); Mean Corpuscular HGB Conc 30.1 g/dl (32-36); Mean Corpuscular Hemoglobin 26.2 pg (26-34); Mean Corpuscular Volume 86.8 fl (80-100); Mean Platelet Volume 10.6 fl (7.4-10.4); Platelet Count Result 177 k/mm3 (150-375); Red Blood Count 3.25 M/mm3 (4.6-6.20); White Blood Count 10.7 K/mm3 (4.5-10.0)
[2023-10-09 13:41] LABS: Anion Gap 13 mmol/L (8-16); Blood Urea Nitrogen 69 mg/dL (9-20); Calcium 6.6 mg/dL (8.4-10.2); Carbon Dioxide 16 mmol/L (22-30); Chloride 112 mmol/L (98-107); Estimated CRCL calculation 15 ml/min; Estimated Glomerular Filt Rate 9; Glucose 102 mg/dL (65-110); Potassium 5.4 mmol/L (3.4-5.0); Sodium 141 mmol/L (137-145)
[2023-10-09 14:00] VITALS: BP 172/90; PULSE 81; RESP 18; TEMP 36.7; O2SAT 96
--- NOTE | 2023-10-09 14:22 | P.PNIM_ITS ---
Progress Note: A&P Assessment and Plan (1) Acute renal failure: Qualifiers: Acute renal failure type: unspecified Qualified Code(s): N17.9 - Acute kidney failure, unspecified Code(s): N17.9 - Acute kidney failure, unspecified Status: Acute Assessment and Plan: * Patient has new onset of renal failure. * He denies prior history of chronic kidney disease. * His renal failure is likely combination of complications from is uncontrolled hypertension in diabetes. * Patient does have significant elevation in his CK so some component of rhabdomyolysis is also possible. * However the patient has not been sedentary ahead in the extreme muscle exertion or injury. * Will repeat electrolyte panel in a.m. as well as anemia labs and CBC. * Will await further recommendations from Nephrology. * Will monitor strict I&O's. * Renal ultrasound no abnormalities. * Not improved with IV fluids - fluids discontinued. (2) Hypertension: Qualifiers: Hypertension type: unspecified Qualified Code(s): I10 - Essential (primary) hypertension Code(s): I10 - Essential (primary) hypertension Status: Chronic Assessment and Plan: * Patient has stopped taking his hypertensive medication. * He takes lisinopril at home. * Lisinopril discontinued and nephrology recommending nifedipine 30 mg daily. * Due to severe hypertension added metoprolol 25 mg p.o. b.i.d. (3) Hypokalemia: Code(s): E87.6 - Hypokalemia Status: Acute Assessment and Plan: patient with a potassium of 5.6 this morning. Patient was given Lokelma. * Repeat lab with a potassium of 5.4 and another dose of 10 mg of Lokelma was given. * Repeat labs in a.m. 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: without equipment operator intermodal yard use Diabetes mellitus complication status: with kidney complications Diabetes mellitus complication detail: with nephropathy Qualified Code(s): E11.21 - Type 2 diabetes mellitus with diabetic nephropathy Code(s): E11.9 - Type 2 diabetes mellitus without complications Status: Chronic Assessment and Plan: * Insulin Lispro sliding scale, Accu-checks qAc and HS and Hold oral hypoglycemics * Initiate hypoglycemic precautions * HgbA1c 5.9 (5) Elevated CPK: Code(s): R74.8 - Abnormal levels of other serum enzymes Status: Acute Assessment and Plan: Patient does have significant elevation in his CK so some component of rhabdomyolysis is also possible. However the patient has not been sedentary ahead in the extreme muscle exertion or injury. * Continue to trend labs (6) Anemia: Qualifiers: Anemia type: unspecified type Qualified Code(s): D64.9 - Anemia, unspecified Code(s): D64.9 - Anemia, unspecified Status: Acute Assessment and Plan: no sign of acute bleed patient found to have a hemoglobin hematocrit of 6.7 /22.4. * Hemoccult negative. * Patient has mildly low iron. Add supplementation. * Anemia could be due to kidney dysfunction. * 3/1 H&H of 6.4/21.2. 2 units of PRBCs ordered. * 3/2 H&H has remained stable (7) History of noncompliance with medical treatment: Code(s): Z91.199 - Patient's noncompliance with other medical treatment and regimen due to unspecified reason Status: Acute (8) Snoring: Code(s): R06.83 - Snoring Status: Acute Asse
--- NOTE | 2023-10-09 14:22 | PM.IMPN ---
Progress Note: A&P Assessment and Plan (1) Acute renal failure: Qualifiers: Acute renal failure type: unspecified Qualified Code(s): N17.9 - Acute kidney failure, unspecified Code(s): N17.9 - Acute kidney failure, unspecified Status: Acute Assessment and Plan: Patient has new onset of renal failure. He denies prior history of chronic kidney disease. His renal failure is likely combination of complications from is uncontrolled hypertension in diabetes. Patient does have significant elevation in his CK so some component of rhabdomyolysis is also possible. However the patient has not been sedentary ahead in the extreme muscle exertion or injury. Will repeat electrolyte panel in a.m. as well as anemia labs and CBC. Will await further recommendations from Nephrology. Will monitor strict I&O's. Renal ultrasound no abnormalities. Not improved with IV fluids - fluids discontinued. (2) Hypertension: Qualifiers: Hypertension type: unspecified Qualified Code(s): I10 - Essential (primary) hypertension Code(s): I10 - Essential (primary) hypertension Status: Chronic Assessment and Plan: Patient has stopped taking his hypertensive medication. He takes lisinopril at home. Lisinopril discontinued and nephrology recommending nifedipine 30 mg daily. Due to severe hypertension added metoprolol 25 mg p.o. b.i.d. (3) Hypokalemia: Code(s): E87.6 - Hypokalemia Status: Acute Assessment and Plan: patient with a potassium of 5.6 this morning. Patient was given Lokelma. Repeat lab with a potassium of 5.4 and another dose of 10 mg of Lokelma was given. Repeat labs in a.m. 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: without senior living use Diabetes mellitus complication status: with kidney complications Diabetes mellitus complication detail: with nephropathy Qualified Code(s): E11.21 - Type 2 diabetes mellitus with diabetic nephropathy Code(s): E11.9 - Type 2 diabetes mellitus without complications Status: Chronic Assessment and Plan: Insulin Lispro sliding scale, Accu-checks qAc and HS and Hold oral hypoglycemics Initiate hypoglycemic precautions HgbA1c 5.9 (5) Elevated CPK: Code(s): R74.8 - Abnormal levels of other serum enzymes Status: Acute Assessment and Plan: Patient does have significant elevation in his CK so some component of rhabdomyolysis is also possible. However the patient has not been sedentary ahead in the extreme muscle exertion or injury. Continue to trend labs (6) Anemia: Qualifiers: Anemia type: unspecified type Qualified Code(s): D64.9 - Anemia, unspecified Code(s): D64.9 - Anemia, unspecified Status: Acute Assessment and Plan: no sign of acute bleed patient found to have a hemoglobin hematocrit of 6.7/22.4. Hemoccult negative. Patient has mildly low iron. Add supplementation. Anemia could be due to kidney dysfunction. 3/ H&H of 6.4/21.2. 2 units of PRBCs ordered. 3/ H&H has remained stable (7) History of noncompliance with medical treatment: Code(s): Z91.199 - Patient's noncompliance with other medical treatment and regimen due to unspecified reason Status: Acute (8) Snoring: Code(s): R06.83 - Snoring Status: Acute Assessment and Plan: Patient does have snoring, crowded posterior oropharynx, large neck circumference and excessive daytime sleepiness. He would benefit from outpatient polysomnogram. Apnea link result was a 7 with high suspicion for breathing disorder. Subjective Date/time seen: 10/09/23 14:22 Interval history: Patient doing well today with no new complaints. Discussed his electrolyte abnormalities with him and how we will monitor these overnight and hopeful
[2023-10-09 17:08] LABS: Glucose Point of Care 100 mg/dl (65-105)
[2023-10-09] MEDS: SODIUM BICARBONATE TAB 650 MG TABLET 1300 MG PO (17:58)
[2023-10-09 20:17] VITALS: PULSE 74
[2023-10-09 20:20] VITALS: PULSE 74; RESP 18; O2SAT 96
[2023-10-09 21:43] VITALS: BP 149/84; PULSE 75; RESP 16; TEMP 36.4; O2SAT 98
[2023-10-09 22:35] LABS: Glucose Point of Care 91 mg/dl (65-105)
[2023-10-10 03:37] LABS: Hepatitis B Core Ab Total Nonreactive (Nonreactive)
[2023-10-10 05:09] LABS: Hemoglobin 7.9 g/dL (14.0-18.0); Mean Corpuscular HGB Conc 30.4 g/dl (32-36); Mean Corpuscular Hemoglobin 26.6 pg (26-34); Mean Corpuscular Volume 87.5 fl (80-100); Mean Platelet Volume 11.3 fl (7.4-10.4); Platelet Count Result 155 k/mm3 (150-375); Red Blood Count 2.97 M/mm3 (4.6-6.20); Red Cell Distribution Width 13.9 % (11.5-14.5); White Blood Count 7.8 K/mm3 (4.5-10.0)
[2023-10-10 05:18] LABS: Albumin Level 3.5 g/dL (3.5-5.1); Anion Gap 10 mmol/L (8-16); Blood Urea Nitrogen 73 mg/dL (9-20); Calcium 6.5 mg/dL (8.4-10.2); Carbon Dioxide 19 mmol/L (22-30); Chloride 112 mmol/L (98-107); Estimated CRCL calculation 15 ml/min; Estimated Glomerular Filt Rate 9; Glucose 83 mg/dL (65-110); Phosphorus 6.3 mg/dL (2.5-4.5); Potassium 4.8 mmol/L (3.4-5.0); Sodium 141 mmol/L (137-145)
[2023-10-10 06:10] LABS: Vitamin D 25 Hydroxy < 12.8 ng/mL
[2023-10-10 06:41] VITALS: BP 154/79; PULSE 77; RESP 16; TEMP 36.5; O2SAT 94
[2023-10-10 07:43] LABS: Glucose Point of Care 71 mg/dl (65-105)
[2023-10-10] MEDS: METOPROLOL TARTRATE 25 MG TABLET PO (08:04)
[2023-10-10] MEDS: NIFEdipine 30 MG TAB.ER.24 PO (08:04)
[2023-10-10] MEDS: SODIUM BICARBONATE TAB 650 MG TABLET 1300 MG PO (08:04)
[2023-10-10] MEDS: CALCIUM CARBONATE (OSCAL) 500 MG TABLET 1500 MG PO ×2 (08:04→11:12)
--- NOTE | 2023-10-10 10:06 | PM.PNNEP ---
Progress Note: A&P Assessment and Plan (1) Renal insufficiency: Code(s): N28.9 - Disorder of kidney and ureter, unspecified Status: Acute Assessment and Plan: relatively stable acute versus chronic versus acute on chronic? no previous/recent labs to compare to prior to this admission (last labs available are from 2017 and creatinine was normal at that time) however, given relative stability in potassium and CO2 levels on admission, suspect a chronic issue evaluation to date noted: urine electrolytes non-prerenal renal ultrasound/CT of abdomen negative for any pathology UA with 3+ protein and 2+ blood nephrotic range proteinuria noted urine eosinophils negative CPK elevated - unclear why extensive serological testing pending no improvement with IVFs consider renal biopsy for definitive diagnosis (this could be done as an outpatient) follow trend of repeat labs and UOP (2) Anemia: Qualifiers: Anemia type: unspecified type Qualified Code(s): D64.9 - Anemia, unspecified Code(s): D64.9 - Anemia, unspecified Status: Acute Assessment and Plan: H/H low on admission s/p PRBC transfusion anemia studies with reasonable iron stores (but testing done post-transfusion) follow trend of H/H dose with Epogen while hospitalized (3) Hyperkalemia: Code(s): E87.5 - Hyperkalemia Status: Acute Assessment and Plan: stable related to PRBC transfusion s/p lokelma to stabilize follow repeat K+ levels (4) Hypocalcemia: Code(s): E83.51 - Hypocalcemia Status: Acute Assessment and Plan: suspect related to renal osteodystrophy and renal dysfunction on calcium carbonate to help improve 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 follow trend - improving contributing component to #1(?) (7) Hypertension: Qualifiers: Hypertension type: unspecified Qualified Code(s): I10 - Essential (primary) hypertension Code(s): I10 - Essential (primary) hypertension Status: Chronic Assessment and Plan: quite elevated on admission given #1, would avoid overcontrol for fear of causing renal hypoperfusion aim to keep systolic BP around 150 - 160 systolic for now continue nifedipine and metoprolol for now (8) Type 2 diabetes mellitus: Qualifiers: Diabetes mellitus complication detail: with nephropathy Diabetes mellitus complication status: with kidney complications Diabetes mellitus half-way insulin use: without half-way use Qualified Code(s): E11.21 - Type 2 diabetes mellitus with diabetic nephropathy Code(s): E11.9 - Type 2 diabetes mellitus without complications Status: Chronic Assessment and Plan: follow accu-cheks glycemic control per hospitalists Not opposed to discharge from renal perspective -- he can follow-up with me in the office to review pending serological testing along with repeat labs for further management of his kidney dysfunction. Will continue to follow. Subjective Date/time seen: 10/10/23 10:06 Interval history: Follow-up for elevated creatinine/renal insufficiency (with suspicion that this is chronic kidney disease). H/H relatively stable since PRBC transfusion; BP under better control with combination of nifedipine and metoprolol; potassium, CO2 levels, and calcium improving with current therapy/i
--- NOTE | 2023-10-10 10:06 | P.PNNP_ITS ---
Progress Note: A&P Assessment and Plan (1) Renal insufficiency: Code(s): N28.9 - Disorder of kidney and ureter, unspecified Status: Acute Assessment and Plan: * relatively stable * acute versus chronic versus acute on chronic? * no previous/recent labs to compare to prior to this admission (last labs available are from 2017 and creatinine was normal at that time) * however, given relative stability in potassium and CO2 levels on admission, suspect a chronic issue * evaluation to date noted: * urine electrolytes non-prerenal * renal ultrasound/CT of abdomen negative for any pathology * UA with 3+ protein and 2+ blood * nephrotic range proteinuria noted * urine eosinophils negative * CPK elevated - unclear why * extensive serological testing pending * no improvement with IVFs * consider renal biopsy for definitive diagnosis (this could be done as an outpatient) * follow trend of repeat labs and UOP (2) Anemia: Qualifiers: Anemia type: unspecified type Qualified Code(s): D64.9 - Anemia, unspecified Code(s): D64.9 - Anemia, unspecified Status: Acute Assessment and Plan: * H/H low on admission * s/p PRBC transfusion * anemia studies with reasonable iron stores (but testing done post-transfusion) * follow trend of H/H * dose with Epogen while hospitalized (3) Hyperkalemia: Code(s): E87.5 - Hyperkalemia Status: Acute Assessment and Plan: * stable * related to PRBC transfusion * s/p lokelma to stabilize * follow repeat K+ levels (4) Hypocalcemia: Code(s): E83.51 - Hypocalcemia Status: Acute Assessment and Plan: * suspect related to renal osteodystrophy and renal dysfunction * on calcium carbonate to help improve calcium 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 * follow trend - improving * contributing component to #1(?) (7) Hypertension: Qualifiers: Hypertension type: unspecified Qualified Code(s): I10 - Essential (primary) hypertension Code(s): I10 - Essential (primary) hypertension Status: Chronic Assessment and Plan: * quite elevated on admission * given #1, would avoid overcontrol for fear of causing renal hypoperfusion * aim to keep systolic BP around 150 - 160 systolic for now * continue nifedipine and metoprolol for now (8) Type 2 diabetes mellitus: Qualifiers: Diabetes mellitus complication detail: with nephropathy Diabetes mellitus complication status: with kidney complications Diabetes mellitus assisted insulin use: without oysterman use Qualified Code(s): E11.21 - Type 2 diabetes mellitus with diabetic nephropathy Code(s): E11.9 - Type 2 diabetes mellitus without complications Status: Chronic Assessment and Plan: * follow accu-cheks * glycemic control per hospitalists Not opposed to discharge from renal perspective -- he can follow-up with me in the office to review noemy
--- NOTE | 2023-10-10 10:17 | PM.DS ---
DS: Admitting Diagnosis Discharge Date 10/10/23 Admitting Diagnosis GEGE, anemia DS: Discharge Diagnosis Discharge Diagnosis (1) Acute renal failure: Qualifiers: Acute renal failure type: unspecified Qualified Code(s): N17.9 - Acute kidney failure, unspecified Code(s): N17.9 - Acute kidney failure, unspecified Status: Acute (2) Hypertension: Qualifiers: Hypertension type: unspecified Qualified Code(s): I10 - Essential (primary) hypertension Code(s): I10 - Essential (primary) hypertension Status: Chronic (3) Hypokalemia: Code(s): E87.6 - Hypokalemia Status: Acute (4) Type 2 diabetes mellitus: Qualifiers: Diabetes mellitus usp insulin use: without meterman use Diabetes mellitus complication status: with kidney complications Diabetes mellitus complication detail: with nephropathy Qualified Code(s): E11.21 - Type 2 diabetes mellitus with diabetic nephropathy Code(s): E11.9 - Type 2 diabetes mellitus without complications Status: Chronic (5) Elevated CPK: Code(s): R74.8 - Abnormal levels of other serum enzymes Status: Acute (6) Anemia: Qualifiers: Anemia type: unspecified type Qualified Code(s): D64.9 - Anemia, unspecified Code(s): D64.9 - Anemia, unspecified Status: Acute (7) History of noncompliance with medical treatment: Code(s): Z91.199 - Patient's noncompliance with other medical treatment and regimen due to unspecified reason Status: Acute (8) Snoring: Code(s): R06.83 - Snoring Status: Acute DS: Summary Hospital Course Hospital Course: 53-year-old male with a past medical history of type 2 diabetes mellitus, diabetic retinopathy essential hypertension, noncompliant with medication therapy, and obesity who presented to the ER from home after outpatient labs demonstrated acute renal failure and anemia.? The patient reports that he went to his primary care physician's office for his yearly physical.? He reports that he had otherwise been feeling well but under further questioning he does admit to some increased fatigue and some shortness of breath with exertion over the last week.?Although he does have a history diabetes and hypertension he quit taking his metformin and lisinopril without informing his primary care provider.? He has been off these medications for minimum of 4 months. He denies any hematuria, changes in urinary frequency, urine amount or coloration.? He has not had any dark stools or bloody stools.? His Hemoccult in the ER was negative.? He does have a history of hypertension and on arrival to the ER his blood pressures were between 202/96 to 158/90. He is noted to have 3+ protein in his urine but denies any foamy urine.? He denies history of diabetic peripheral neuropathy but does have a history of nonhealing ulcer to his anterior dorsum of the foot and ankle on the left in the past.? on arrival to the ED his H&H was 6.7/21.2, BUN and creatinine of 68 / 7.7 with a GFR of 9, and a CK of 4366. There are no obvious signs of an acute bleed. Patient was given 2 units of PRBCs due to his low hemoglobin. Nephrology consulted. Patient has no known history of kidney disease. His A1c was 5.9. nephrology did complete workup on the patient and labs are still pending. due to ongoing elevated pressures patient was started on amlodipine originally that was then transition to nifedipine 30 mg daily as well as metoprolol 25 mg b.i.d. There is possibility the patient will need kidney biopsy and/or dialysis. During observation patient developed low hemoglobin again of 6.4 and received another 2 units of PRBCs. After this patient's potassium increasing when discussing with Nephrology he said that this is common with blood transfusions. He was given Lokelma until potassium was stabilized. Patient was also found to have an elevated PTH, low vitamin-D and low calcium. He was plac
[2023-10-10 11:04] LABS: Albumin 3.5 g/dL (3.8-4.8); Alpha 1 Globulin 0.3 g/dL (0.2-0.3); Alpha 2 Globulin 0.8 g/dL (0.5-0.9); Beta 1 Globulin 0.3 g/dL (0.4-0.6); Gamma Globulin 1.1 g/dL (0.8-1.7); Protein, Total 6.4 g/dL (6.1-8.1)
[2023-10-10] MEDS: EPOETIN ALFA-EPBX 10,000 UNITS/ML VIAL 10000 UNITS SUB-Q (11:12)
[2023-10-10 11:21] LABS: Glucose Point of Care 136 mg/dl (65-105)
[2023-10-10 11:39] LABS: Albumin 3.7 g/dL (3.8-4.8); Alpha 1 Globulin 0.3 g/dL (0.2-0.3); Alpha 2 Globulin 0.8 g/dL (0.5-0.9); Beta 1 Globulin 0.3 g/dL (0.4-0.6); Gamma Globulin 1.1 g/dL (0.8-1.7); Protein, Total 6.7 g/dL (6.1-8.1)
[2023-10-12 09:08] LABS: Haptoglobin 323 mg/dL (43-212)
[2023-10-12 09:12] LABS: Anti Glomerular Basement Memb <1.0 AI (<1.0)
[2023-10-12 11:25] LABS: Ionized Calcium 3.8 mg/dL (4.7-5.5)
[2023-10-13 07:33] LABS: Creatinine, Random Urine 78 mg/dL (20-320); Total Protein/Creatinine Ratio 3077 mg/g creat (25-148)
[2023-10-13 09:50] LABS: ANCA Screen ATYP P-ANCA POS (Negative)
[2023-10-13 10:23] LABS: Atyp PANCA Ttr Reflex Chg Test YES; Atypical P-ANCA Titer 1:20 Titer (<1:20)
[2023-10-13 20:50] LABS: Cryoglobulin, QL Negative (Negative)
== END 2023-10-10 11:25 | disposition home or self-care (01) | DRG 684 ==
LOC: ANHED 10-07 01:56 → ANH2MED 10-07 03:44
PROVIDERS: Internal Medicine Nephrology; Admitting Provider Internal Medicine; Emergency Provider Emergency Medicine; PCP Internal Medicine; Visit Provider Internal Medicine Critical Care Medicine
DX: N17.9 Acute kidney failure, unspecified (principal); E11.21 Type 2 diabetes mellitus with diabetic nephropathy; I12.9 Hypertensive chronic kidney disease with stage 1 through stage 4 chronic kidney disease, or unspecified chronic kidney disease; N18.9 Chronic kidney disease, unspecified; D64.9 Anemia, unspecified; E87.6 Hypokalemia; E11.42 Type 2 diabetes mellitus with diabetic polyneuropathy; E78.5 Hyperlipidemia, unspecified; E83.51 Hypocalcemia; R06.83 Snoring; E87.5 Hyperkalemia; E66.9 Obesity, unspecified; Z68.33 Body mass index [BMI] 33.0-33.9, adult; Z91.199 Patient's noncompliance with other medical treatment and regimen due to unspecified reason
CPT/HCPCS: 36415; 36430; 74176; 76775; 80048; 80053; 80061; 80069; 81001; 81050; 82306; 82330; 82550; 82570; 82595; 82607; 82728; 82746; 82948; 83010; 83036; 83520; 83540; 83550; 83615; 83735; 83883; 83970; 84100; 84155; 84156; 84165; 84166; 84300; 84443; 84466; 84540; 85014; 85018; 85025; 85027; 85046; 85384; 85999; 86036; 86038; 86160; 86225; 86334; 86335; 86704; 86706; 86850; 86900; 86901; 86923; 87340; 93306; 94762; 96361; 96365; 96374; 99285; A9270; G0378; J0360; J0612; J0613; J3475; J7030; J7050; P9016; Q5105

== ENCOUNTER 2025-05-27 13:41 | Inpatient (IN) | payer OTHER, SELFPAY ==
--- NOTE | ~2025-05-27 | CT_ITS ---
Jose Jara EXAMINATION: CT abdomen pelvis w con COMPARISON: None HISTORY: scrotal abscess, hx DM TECHNIQUE: Axial images were obtained through the abdomen, pelvis post administration of IV contrast. Oral contrast was also administered. Coronal reconstruction images were obtained from the axial views. CT scan performed using dose optimization techniques including the following automated exposure control; adjustment of mA and/or kV; use of iterative reconstruction technique. Automatic exposure control was used to reduce radiation dose. Permanent radiation dose record is archived to PACS. FINDINGS: CT abdomen: LUNG BASES: The lung bases are clear. The visualized portions of the heart and pericardium are unremarkable. LIVER: Mild hepatic steatosis. SPLEEN: Unremarkable. KIDNEYS: Right Kidney: Right kidney midpole simple cyst 3 x 4 cm. Left Kidney: Unremarkable. No calculi. No hydronephrosis ADRENAL GLANDS: Unremarkable. PANCREAS: Unremarkable. GALLBLADDER/BILIARY: Unremarkable. No biliary dilatation. STOMACH AND ESOPHAGUS: Visualized stomach and esophagus within normal limits. BOWEL/MESENTERY: Moderate fecal content. No colitis or diverticulitis. Appendix unremarkable. No stranding within the mesentery. There are no thickened or dilated loops of small bowel. ADENOPATHY/RETROPERITONEUM: No lymphadenopathy. AORTA/VASCULATURE: Normal caliber aorta. FREE FLUID OR FREE AIR: None. CT pelvis: SOLID ORGANS/REPRODUCTIVE: The prostate is enlarged, correlate with PSA. BLADDER: The bladder is distended. OSSEOUS STRUCTURES: No acute osseous abnormality.No suspicious lesions. OVERLYING SOFT TISSUES: There is stranding noted within the soft tissues of the scrotum with rim-enhancing abscesses the largest on the right side measuring 2 x 2.2 cm with induration of the remaining soft tissues but no gross air within the soft tissues themselves. IMPRESSION: Scrotal abscesses detailed above with cellulitis. Incidental findings above. Reviewed, dictated and finalized at location P.
--- OUTSIDE RECORDS SUMMARY | 2025-05-27 13:44 | XMS_ITS ---
Author Organization [facility] Address [address] [place] [address] Care Team Providers Care Senior Tax Analyst Name Role Phone Tesha Carranza MD Unavailable Lee Arriola MD Unavailable [phone] Danni Terrazas RN Unavailable [phone] Franky Brewer MD Primary Care Provider [phone] Transplant Episode Kidney Candidate [facility] ([place], [place]) - [facility] Evaluation began on 03/23/2024 Marked as Active on 03/23/2024 Reason: Evaluation - Standard Kidney CoordinatorDanni Terrazas RN Email: N/A Scores Score Value Updated Exceptions/Reas ons CPRA Not available EPTS (Calc) 60 05/27/2025 Care Team Name Role Phone Fax Email Danni Terrazas RN Kidney Coordinator [phone] N/A Danny Le Income Tax Expert N/A N/A N/A Lee Arriola MD Referring Physician [phone] N/A Xiao Manuel Primary Signal Repairer N/A N/A N/A Events Pre-Transplant Referred: 10/22/2023 Evaluation began: 03/23/2024 Dialysis History Dialysis History Start End Type Comments Center 10/28/2023 Hemo TTS 11:00am Dr Lee Arriola - 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
--- OUTSIDE RECORDS SUMMARY | 2025-05-27 13:45 | XMS_ITS | Clinical Summary ---
Author Organization [facility] Address [address] [place] [address] Care Team Providers Care Dispensing And Measuring Optician Name Role Phone Tesha Carranza MD Unavailable Lee Arriola MD Unavailable [phone] Danni Terrazas RN Unavailable [phone] Franky Brewer MD Primary Care Provider [phone] Allergies No known active allergies Medications cholecalcifero l (VITAMIN D-3) 1,000 unit capsule Take 1 capsule (1,000 Units total) by mouth daily 30 capsule 4 Active lisinopriL (PRINIVIL,ZEST RIL) 40 mg tablet Take 1 tablet (40 mg total) by mouth daily 30 tablet 4 Active sevelamer (RENVELA) 800 mg tablet Take 2 tablets (1,600 mg total) by mouth 3 (three) times a day with meals 180 tablet 4 Active calcitRIOL (ROCALTROL) 0.25 mcg capsule Take 1 capsule (0.25 mcg total) by mouth daily 30 capsule 4 Active calcium carbonate (OS-AURORA) 1,250 mg (500 mg elemental) tablet Take 1 tablet (1,250 mg total) by mouth 2 (two) times a day 60 tablet 4 Active insulin glargine 100 unit/mL (3 mL) pen for injection INJECT 25 UNITS SUBCUTANEOUSLY ONCE DAILY 5 Active atorvastatin (LIPITOR) 20 mg tablet Take 1 tablet (20 mg total) by mouth daily 5 Active insulin aspart (NovoLOG) 100 unit/mL (3 mL) pen for injectionIndic ations:Type 2 diabetes mellitus with chronic kidney disease on chronic dialysis, with long-term current use of insulin (HCC) Inject 10-20 Units under the skin 3 (three) times a day with meals 18 mL 5 5 026 Active pen needle, diabetic (BD Ultra-Fine Dunia Pen Needle) 32 gauge x /32 needleIndicati ons:Type 2 diabetes mellitus with chronic kidney disease on chronic dialysis, with long-term current use of insulin (HCC) 4x daily 100 each 5 Active FreeStyle Cedric 3 Plus Sensor deviceIndicati ons:Type 2 diabetes mellitus with chronic kidney disease on chronic dialysis, with long-term current use of insulin (HCC) Change every 15 days 2 each 5 Active Mounjaro 2.5 mg/0.5 mL pen injector injectionIndic ations:Type 2 diabetes mellitus with chronic kidney disease on chronic dialysis, with long-term current use of insulin (HCC) Inject 0.5 mL (2.5 mg total) under the skin every 7 days for 28 days 2 mL 5 Active Mounjaro 5 mg/0.5 mL pen injector injectionIndic ations:Type 2 diabetes mellitus with chronic kidney disease on chronic dialysis, with long-term current use of insulin (HCC) Inject 0.5 mL (5 mg total) under the skin every 7 days 2 mL 5 5 026 Active Active Problems Problem Noted Date Diagnosed Date Type 2 diabetes mellitus wit h chronic kidney disease on chronic dialysis, with long-term current use of insulin 02/25/2025 ESRD on hemodialysis 11/25/2023 Anemia 10/18/2023 Assessment & Plan (10/18/2023 4:41 PM CDT): Required blood transfusion at [facility] for presenting Hgb 6.7. Now improved. Work-up included: Iron 47 low TIB 238 low Tsat 20 normal transferrin 149 low ferritin 290 high, B12 758, folate 10.9. Most likely AOCD and 2/2 renal failure - transfuse for hgb <7 Low serum vitamin D 10/17/2023 Assessment & Plan (10/18/2023 4:37 PM CDT): Recently diagnosed with low vit D at recent hospital stay and started on supplementation with 50,000 units weekly - vit D there was 12.8, now 17 - cholecalciferol 1000 units daily Leg swelling 10/16/2023 Assessment & Plan (10/18/2023 4:37 PM CDT): Reporting new LE swelling since discharge from hospital. Most likely due to underlying renal disease - TTE from [facility] EF 55-60%, no major significant valvular abnormalities - bilateral LE duplex venous ultrasound negative for DVTs - see ARF section regarding work up for elevated Cr - patient advised to elevate legs and use compression stockings Hypocalcemia 10/16/2023 Assessment & Plan (10/19/2023 1:55 PM CDT): Patient admitted to hospital with Calcium of 6.0 ical of 3.55. Given 2 grams of IV Calcium in the ED. Hypocalcemia likely related to patient CKD, GEGE. - repleting aggressively Hypertension 10/16/2023 Assessment & Plan (10/24/2023 10:41 AM CDT): Patient with history of essential hypertension. Patient on Metoprolol and Nifedipine from recent hospitalization; recently taken off of Lisinopril. - nifedipine increased to 60mg daily - stopped metoprolol - started coreg, up-titrated to 25mg BID - started torsemide 20mg daily - started lisinopril 40mg daily Hyperkalemia 10/16/2023 Assessment & Plan (10/24/2023 10:40 AM CDT): Patient presenting with K+ of 5.2 in setting of ARF. Recently discharged from hospital with normal potassium. No peaked T waves on EKG. - s/p svetlana, now d/c'ed as hyperkalemia improved after initiation of HD - renal diet Acute renal failure (ARF) 10/16/2023 Assessment & Plan (10/26/2023 5:02 PM CDT): Patient presented to [facility] with creatinine of 6.80. Prior Cr was 1.88 in Care Everywhere note in 2020. Was >7 on presentation to [facility] on 10/05. Patient has a history of hypertension and it is possible that this is actually CKD iso poorly controlled BP. Also has history of DM, previously on metformin but had stopped and instead was taking chromium supplement daily. Working up other causes of acute renal failure as directed by nephrology team. Has nephrotic range proteinuria. - renal ultrasound: no hydronephrosis; + increased echogenicity c/w renal parenchymal disease - elevated kappa/lambda on OSH UPEP - C3 107; C4 high at 46.6 (OSH) - DEVIN, cryos, ANCA, ds-DNA, glomerular basement membrane antibody neg (OSH) - appreciate nephrology recommendations - chromium level WNL - s/p TDC placement 10/19 and s/p iHD 10/20, 10/21, 10/22, 10/24 - Outpatient HD unit has been coordinated, per Alejandra perez for d/c home 10/25 CAP (community acquired pneumonia) 10/16/2023 Assessment & Plan (10/19/2023 1:56 PM CDT): Patient reportedly diagnosed with CAP at OSH. Reportedly supposed to be on Augmentin / Azithromycin and completed Azithromycin. Not currently having any lung symptoms. - chest x-ray [facility] with no infiltrates - got 1 additional day of cefdinir here (10/15) - stopped antibiotics Encounters Date Type Department Care Team Description 04/13/2025 Telephone [facility] [address] [address] William Reno MD Med Management (FSL3+ ) 04/13/2025 Telephone [facility] [address] [address] William Reno MD Med Management (Charles MCKEON) 04/06/2025 9:00 AM CDT Lab [address] [address] Type 2 diabetes mellitus with chronic kidney disease on chronic dialysis, with long-term current use of insulin (HCC); Hyperlipidemia associated with type 2 diabetes mellitus (HCC); Hypertension associated with diabetes (HCC) 04/06/2025 8:45 AM CDT Office [facility] [address] [address] William Reno MD Type 2 diabetes mellitus with chronic kidney disease on chronic dialysis, with long-term current use of insulin (HCC) (Primary Dx); Hypertension associated with diabetes (HCC); Hyperlipidemia associated with type 2 diabetes mellitus (HCC) 04/06/2025 Results Follow-Up [facility] [address] [address] William Reno MD Lipid panel, Comprehensive metabolic panel, eGFR from Last 3 Months Surgical History Surgery Date Site/Laterality Comments TUNNELED LINE PLACEMENT > 5 YEARS 10/20/2023 N/A EYE SURGERY 08/09/2000 - 08/08/2001 Bilateral retinal surgery Medical History Medical History Date Comments Anemia Hypertension Dialysis patient Wednesday y Wednesday Family History Medical History Relation Name Comments Diabetes Father Diabetes Maternal Grandfather Thyroid disease Mother Diabetes Paternal Grandfather Anesthesia problems Neg Hx Relation Name Status Comments Father Maternal Grandfather Mother Paternal Grandfather Social History Tobacco Use Types Packs/Day Years Used Date Smoking Tobacco: Never Passive Smoke Exposure: Never Smokeless Tobacco: Never Tobacco Cessation:Counseling Given: Not Answered [facility] Utilities Answer Date Recorded In the past 12 months has e [employer], gas, oil, or water [employer] threatened to shut off services in your home? No 10/27/2023 Social Connection and Isolation Panel Answer Date Recorded In a typical week, how many times do you talk on the phone with family, friends, or neighbors? More than three times a week 06/12/2024 How often do you get togethe r with friends or relatives? More than three times a week 06/12/2024 How often do you attend chur ch or pentecostal services? 1 to 4 times per year 06/12/2024 Do you belong to any clubs o r organizations such as amish groups, unions, fraternal or athletic groups, or school groups? Yes 06/12/2024 How often do you attend meet ings of the clubs or organizations you belong to? More than 4 times per year 06/12/2024 Are you , , di vorced, , never , or living with a partner? 06/12/2024 AUDIT-C Answer Date Recorded Q1: How often do you have a drink containing alcohol? Never 01/25/2024 Q2: How many drinks containi ng alcohol do you have on a typical day when you are drinking? Patient does not drink Q3: How often do you have si x or more drinks on one occasion? Never 01/25/2024 Overall Financial Resource Strain (CARDIA) Answe r Date Recorded How hard is it for you to pa y for the very basics like food, housing, medical care, and heating? Not very hard 06/12/2024 Hunger Vital Sign Answer Date Recorded Within the past 12 months, y ou worried that your food would run out before you got the money to buy more. Never true 06/12/20 24 Within the past 12 months, t he food you bought just didn't last and you didn't have money to get more. Never true 06/12/2024 PRAPARE - Transportation Answer Date Re corded In the past 12 months, has l ack of transportation kept you from medical appointments or from getting medications? No 11/2023 In the past 12 months, has l ack of transportation kept you from meetings, work, or from getting things needed for daily living? No 06/12/2024 Housing Stability Vital Sign Answer Luis e Recorded In the last 12 months, was t here a time when you were not able to pay the mortgage or rent on time? No 10/27/2023 In the last 12 months, how many places have you lived? 1 10/27/2023 In the last 12 months, was t here a time when you did not have a steady place to sleep or slept in a mcc (including now)? No 10/27/2023 Personal Safety Answer Date Recorded Have you ever been in or are you currently in a harmful physical or emotional relationship or is someone making you feel afraid or unsafe? Denies 01/25/2024 Sex and Gender Information Value Date Recorded Sex Assigned at Not on file Legal Sex Male 9:39 AM MANAGER DEVELOPMENT Gender Identity Not on file Sexual Orientation Not on file Obstetrics History Last Filed Vital Signs Vital Sign Reading Time Taken Comments Blood Pressure 132/86 04/06/2025 8:27 AM CDT Pulse 96 04/06/2025 8:27 AM CDT Temperature 36.7 C (98.1 F) 06/12/2024 1:42 PM MANAGER DEVELOPMENT Respiratory Rate 15 02/23/2025 11:47 AM CDT Oxygen Saturation 96% 03/03/2024 11:05 AM CDT Inhaled Oxygen Concentration - - Weight 113.4 kg (250 lb) 04/06/2025 8:27 AM CDT Height 188 cm (6' 2) 04/06/2025 8:27 AM CDT Body Mass Index 32.1 04/06/2025 8:27 AM CDT Plan of Treatment Health Maintenance Due Date Last Done Comments Albumin Creatinine Ratio, Urine 1972 Colon Cancer Screening-Colonoscopy 1972 Depression Screening 1972 Dilated Eye Exam 1972 Foot Exam 1972 DTaP/Tdap/Td Vaccine (1 - Tdap) 1983 Regular Well Visit/Exam 18-64 1990 Pneumococcal vaccine <65 (1 of 2 - PCV) 1991 Zoster Vaccine (1 of 2) 2022 Covid-19 Vaccine (3 - 2024-2 6 season) 2025 09/10/2021, 08/18/2021 Influenza Vaccine (#1) 2025 07/18/2022 Hemoglobin A1C 10/06/2025 04/06/2025, 07/1 03/2025, 06/12/2024, Additional history exists Lipid Panel 04/06/2026 04/06/2025, 06/12/2024 eGFR 04/06/2026 04/06/2025, 11/0 11/2023, 10/25/2023, Additional history exists Prostate Cancer Screening-PSA 06/12/2026 06/12/2024 Hepatitis B Screening Completed 06/12/2024 , 12/07/2023, 10/30/2023 Hepatitis C Screening Completed 06/12/2024 Medical Devices Explanted Type Area Weld Lay Out Worker Device Identifier Shelf Expiration Date Model / Serial / Lot [facility] [employer] Duraflow Embosafe 15.5fr 28cm Basic 2 Lumen Kit Catheter [id number] - [id number] Explanted:Qty: 1 on 10/20/2023 at [facility] 12/06/2025 [id number] Procedures Procedure Name Priority Date/Time Associated Diagnosis Comments EGFR Routine 04/06/2025 8:58 AM CDT Type 2 diabetes mellitus with chronic kidney disease on chronic dialysis, with long-term current use of insulin (HCC) Hypertension associated with diabetes (HCC) Hyperlipidemia associated with type 2 diabetes mellitus (HCC) COMPREHENSIVE METABOLIC PANEL Routine 04/06/2025 8:58 AM CDT Type 2 diabetes mellitus with chronic kidney disease on chronic dialysis, with long-term current use of insulin (HCC) Hypertension associated with diabetes (HCC) Hyperlipidemia associated with type 2 diabetes mellitus (HCC) LIPID PANEL Routine 04/06/2025 8:58 AM CDT Type 2 diabetes mellitus with chronic kidney disease on chronic dialysis, with long-term current use of insulin (HCC) Hyperlipidemia associated with type 2 diabetes mellitus (HCC) POCT GLUCOSE Routine 04/06/2025 8:29 AM CDT Type 2 diabetes mellitus with chronic kidney disease on chronic dialysis, with long-term current use of insulin (HCC) POCT HEMOGLOBIN A1C Routine 04/06/2025 8 :29 AM CDT Type 2 diabetes mellitus with chronic kidney disease on chronic dialysis, with long-term current use of insulin (HCC) HEPATITIS C ANTIBODY Routine 06/12/2024 10:14 AM MANAGER DEVELOPMENT End stage renal disease (HCC) PSA SCREEN Routine 06/12/2024 10:14 AM MANAGER DEVELOPMENT End stage renal disease (HCC) from Last 3 Months or Most Recently Relevant to Health Maintenance Results * (ABNORMAL) eGFR (04/06/2025 8:58 AM CDT) [facility] eGFR 9(L) >=60 mL/min/1. 73 m2 Comment: Interpretive Data Reference Interval Normal >/= 90 mL/min/1.73m2 Mildly decreased* 60 - 89 mL/min/1.73m2 Mildly to moderately decreased 45 - 59 mL/min/1.73m2 Moderately to severely decreased 30 - 44 mL/min/1.73m2 Severely decreased 15 - 29 mL/min/1.73m2 Kidney Failure < 15 mL/min/1.73m2 *Relative to young adult level Estimated glomerular filtration rate is determined by the 2020 CKD-EPI equation recommended by the National Kidney Foundation (A Unifying Approach to GFR Estimation: Recommendations of the NKF-ASK Task Force on Reassessing the Inclusion of Race in Diagnosing Kidney Disease, JASN 2020). The CKD-EPI equation should not be used for patients with unstable renal function and has not been validated in children and those over 70. Current interpretive data was last reviewed 2021. Blood 04/06/2025 8:58 AM CDT 04/06/2025 12:01 PM CDT Supraja Gilbert Hunt MD LAB BLOOD ORDERABLE S Final Result [facility] [address] [address] Department [place] [address] * (ABNORMAL) Lipid panel (04/06/2025 8:58 AM CDT) Cholesterol 208(H) 30 - 199 mg/dL Comment: Interpretive Data Ages < or = 19 years Acceptable: <170 mg/dL Borderline high: 170-199 mg/dL High: >or= 200 mg/dL Ages > or = 20 years Desirable: <200 mg/dL Borderline high: 200-239 mg/dL High: >or= 240 mg/dL Literature References: 1. Expert Panel on Integrated Guidelines for Cardiovascular Health and Risk Reduction in Children and Adolescents. Pediatrics 2011;128:S213 2. NCEP Expert Panel. Circulation 2004;110:227 Current Interpretive Data was last revised on 2018. Triglycerides 312(H) <=149 mg/dL [facility] Comment: Interpretive Data Ages < or = 9 years Acceptable: <75 mg/dL Borderline high: 75-99 mg/dL High: >or= 100 mg/dL Ages 10 to 20 years Acceptable: <90 mg/dL Borderline high: 90-129 mg/dL High: >or= 130 mg/dL Ages > or = 20 years Desirable: <150 mg/dL Borderline high: 150-199 mg/dL High: 200-499 mg/dL Very high: >or= 499 mg/dL Literature References: 1. Expert Panel on Integrated Guidelines for Cardiovascular Health and Risk Reduction in Children and Adolescents. Pediatrics 2011;128:S213 2. NCEP Expert Panel. Circulation 2004;110:227 Current Interpretive Data was last revised on 2018. HDL 34(L) >=40 mg/dL [facility] Comment: Interpretive Data Ages < or = 19 years Acceptable: >45 mg/dL Borderline low: 40-45 mg/dL Low: <40 mg/dL Ages > or = 20 years Desirable: >or= 60 mg/dL Low: <40 mg/dL Literature References: 1. Expert Panel on Integrated Guidelines for Cardiovascular Health and Risk Reduction in Children and Adolescents. Pediatrics 2011;128:S213 2. NCEP Expert Panel. Circulation 2004;110:227 Current Interpretive Data was last revised on 2018. LDL, calculated 119 <=129 mg/dL [facility] Comment: Interpretive Data Ages < or = 19 years Acceptable: <110 mg/dL Borderline high: 110-129 mg/dL High: >or= 130 mg/dL Ages > or = 20 years Optimal: <100 mg/dL Near optimal: 100-129 mg/dL Borderline high: 130-159 mg/dL High: >160 mg/dL Calculated using the Baron LDL-C estimating equation. This equation was implemented on 2024. Prior to this date LDL-C was estimated using the Friedewald equation. Literature References: 1. Expert Panel on Integrated Guidelines for Cardiovascular Health and Risk Reduction in Children and Adolescents. Pediatrics 2011;128:S213 2. NCEP Expert Panel. Circulation 2004;110:227 3. Baron Navas al. EARNESTINE Cardiol. 2020 December 07;5(5):540-548. doi: 10.1001/jamacardio.2020.0013 Current Interpretive Data was last revised on 2024. Non-HDL Cholesterol 174 mg/dL [facility] Comment: Interpretive Data Ages < or = 19 years Acceptable: <120 mg/dL Borderline high: 120-144 mg/dL High: >145 mg/dL Ages > or = 20 years When triglycerides are >200 mg/dL, Non-HDL cholesterol is a secondary target of therapy with treatment goals that are 30 mg/dL greater than the LDL cholesterol target. Literature References: 1. Expert Panel on Integrated Guidelines for Cardiovascular Health and Risk Reduction in Children and Adolescents. Pediatrics 2011;128:S213 2. NCEP Expert Panel. Circulation 2004;110:227 Current Interpretive Data was last revised on 2018. Chol/HDL ratio 6 [facility] Blood 04/06/2025 8:58 AM CDT 04/06/2025 11:54 AM CDT us William Hunt MD LAB BLOOD ORDERABLE S Final Result [facility] [address] [address] Department [place] [address] * (ABNORMAL) Comprehensive metabolic panel (04/06/2025 8:58 AM CDT) Sodium 139 135 - 145 mmol/L Potassium, pl 4.9 3.3 - 4.9 mmol/L [facility] Chloride 97 97 - 110 mmol/L [facility] CO2 25 22 - 32 mmol/L [facility] Anion gap 17(H) 2 - 15 mmol/L [facility] BUN 38(H) 6 - 25 mg/dL [facility] Creatinine 6.97(H) 0.80 - 1.30 mg/dL [facility] Glucose 249(H) 70 - 199 mg/dL [facility] Comment: Interpretive Data Fasting glucose >/= 126 mg/dl is diagnostic for diabetes. Fasting is defined as no caloric intake for at least 8 hours. Fasting glucose between 100 mg/dl to 125 mg/dl is diagnostic of prediabetes. In a patient with classic symptoms of hyperglycemia or hyperglycemic crisis, a random glucose >/= 200 mg/dl is diagnostic for diabetes. In the absence of unequivocal hyperglycemia, results should be confirmed by repeat testing. The classification and Diagnosis of Diabetes Diabetes Care 202; 46: S19-S40. Current interpretive data was last revised 2022. Calcium 8.7 8.5 - 10.3 mg/dL [facility] Bilirubin, total 0.4 0.1 - 1.2 mg/dL [facility] Protein, pl 8.7(H) 6.5 - 8.5 g/dL [facility] Albumin 4.5 3.5 - 5.0 g/dL [facility] Alk phos 59 40 - 130 Units/L [facility] ALT 15 7 - 55 Units/L [facility] AST 18 10 - 50 Units/L [facility] Blood 04/06/2025 8:58 AM CDT 04/06/2025 11:54 AM CDT William Hunt MD LAB BLOOD ORDERABLE S Final Result [facility] [id number] [address] Department [place] [address] * (ABNORMAL) POCT hemoglobin A1c (04/06/2025 8:29 AM CDT) Hemoglobin A1C, POC 11.9(A) 4.0 - 5.6 % Capillary blood 04/06/2025 8 :29 AM CDT William Hunt MD POINT OF CARE TEST ORDERABLES Final Result * POCT glucose (04/06/2025 8:29 AM CDT) Glucose Blood, POC 283 Normal Fasting 70 - 100, Random <200 mg/dL Blood 04/06/2025 8:29 AM CDT William Hunt MD POINT OF CARE TEST ORDERABLES Final Result * (ABNORMAL) PSA screen (06/12/2024 10:14 AM MANAGER DEVELOPMENT) PSA-Total 5.84(H) <=3.90 ng/mL Comment: Interpretive Data AGE SEX REFERENCE INTERVAL 0 minutes-150 years Female None 0 minutes-49 years Male None 50-59 years Male 0-3.90 60-69 years Male 0-5.40 70-79 years Male 0-6.20 80-150 years Male 0-6.20 The Zafar PSA Total assay procedure was used. Results from different manufacturers or methods may not be comparable. Serial testing should be performed using the same method. Current interpretive data last revised 21. Blood 06/12/2024 10:1 4 AM MANAGER DEVELOPMENT 06/12/2024 11:37 AM MANAGER DEVELOPMENT Narrative [facility] - 06/12/2024 12:13 PM MANAGER DEVELOPMENT This lab is being obtained as part of a Kidney transplant evaluation, is time sensitive, and should only be drawn during the evaluation visit at [address] Lab[address] Carlitos Glover MD LAB BLOOD ORDERABLES Final Resu lt Performing Organization Address [facility] Co de Phone Number [facility] Department [place] [address] * Hepatitis C antibody Blood (06/12/2024 10:14 AM MANAGER DEVELOPMENT) Pathologist [facility] Hep C Ab Nonreactive Nonreactive Comment:Antibodies to HCV no t detected. Does NOT exclude the possibility of recent exposure to HCV. Current interpretive data was last revised on 22 Blood 06/12/2024 10:1 4 AM MANAGER DEVELOPMENT 06/12/2024 11:39 AM MANAGER DEVELOPMENT Narrative [facility] 06/12/2024 12:37 PM MANAGER DEVELOPMENT This lab is being obtained as part of a Kidney transplant evaluation, is time sensitive, and should only be drawn during the evaluation visit at [address] Carlitos Glover MD LAB MICROBIOLOGY - GENERAL ORDE RABLES Final Result Performing Organization Address [facility]/ZIP Co de Phone Number [facility] [place] [address] from Last 3 Months or Most Recently Relevant to Health Maintenance Insurance MEDICARE [employer] OPEN ACCESS [facility] MEDICARE Advance Directives For more information, please contact: [phone] * Full Code (Latest Code Status on File) Date Activated Date Inactivated Comments 10/16/2023 5:48 AM 10/26/2023 8:33 PM Care Teams Dispensing And Measuring Optician Relationship Specialty Start Date End Date Franky Brewer MD [address] [place] [address] PCP - General Internal Medicine 02/07/25 Tesha Carranza MD [address] [place] [address] Resident General Surgery 01/25/24 Lee Arriola MD [address] [place] [address] Referring Physician Nephrology 03/17/24 Danni Terrazas, RN [address] [place] [address] Vice President Of Consulting Services 03/17/24
--- OUTSIDE RECORDS SUMMARY | 2025-05-27 13:45 | XMS_ITS | Clinical Summary ---
Author Organization [facility] [facility] Address [address] 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 This disclosure is being madepursuant to the Care Everywhere program and may not contain all information available regarding this patient. Last updated 18.[facility] Social History Tobacco Use Types Packs/Day Years Used Date Smoking Tobacco: Never Assessed Sex and Gender Information Value Date Recorded Sex Assigned at Not on file Legal Sex Male 12:47 PM CDT Gender Identity Not on file Sexual Orientation Not on file Plan of Treatment Health Maintenance Due Date Last Done Comments COLOGUARD (AGES 45-75) - COL ON CA SCREENING 1972 COLON MONITORING 1972 COLONOSCOPY - COLON CA SCREENING 1972 CT COLONOGRAPHY - COLON CA SCREENING 1972 Colorectal Cancer Screening 1972 FIT - COLON CA SCREENING 1972 FLEX SIG - COLON CA SCREENING 1972 LIPID TESTING 1972 HIV SCREENING 1987 HEPATITIS C SCREENING 04/19/1990 DTAP/TDAP/TD VACCINES (1 - Tdap) 1991 HEPATITIS B VACCINE (1 of 3 - 19+ 3-dose series) 1991 PNEUMOCOCCAL VACCINE 50+ (1 of 1 - PCV) 2022 ZOSTER VACCINE (1 of 2) 2022 DEPRESSION SCREENING 08/09/2024 COVID-19 VACCINE (2023-2 5 season) 2025 INFLUENZA VACCINE (#1) 2025 HIB VACCINE Aged Out No longer eligi ble based on patient's age to complete this topic HPV VACCINE Aged Out No longer eligi ble based on patient's age to complete this topic MENINGOCOCCAL (Group B) VACC INE SHARED DECISION-MAKING Aged Out No longer eligibl e based on patient's age to complete this topic MENINGOCOCCAL GROUPS A/C/Y/W VACCINE Aged Out No longer eligible b ased on patient's age to complete this topic Insurance [facility] Address: [facility] [id number] [place] [address]
--- OUTSIDE RECORDS SUMMARY | 2025-05-27 13:45 | XMS_ITS | Clinical Summary ---
Author Organization 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 Gender Identity Not on file Sexual Orientation Not on file Plan of Treatment Health Maintenance Due Date Last Done Comments Hepatitis C Virus (HCV) Screening 1972 TdaP Immunization 1972 Cologuard 2017 Colonoscopy 2017 Colorectal Cancer Screening 2017 Immunochemical Fecal Occult Blood 2017 Pneumococcal Immunization (5 0+ years) (1 of 1 - PCV) 2022 Zoster Immunization (1 of 2) 2022 Influenza Immunization (#1) 2025 07/18/2022 SARS-COV-2 Immunization (3 - season) 2025 09/10/2021, 08/18/2021 Respiratory Syncytial Virus (RSV) Immunization (Adult) (1 - 1-dose 75+ series) 2047 Hepatitis B Immunization Completed 024, 10/30/2023 Human Papillomavirus (HPV) Immunization Aged Out No longer eligible b ased on patient's age to complete this topic Meningococcal Immunization (ACWY) Aged Out No longer eligible b ased on patient's age to complete this topic Rotavirus Immunization Aged Out No lo nger eligible based on patient's age to complete this topic Insurance MEDICARE ALLIED BENEFITS
--- OUTSIDE RECORDS SUMMARY | 2025-05-27 13:45 | XMS_ITS ---
Author Organization [facility] ([facility]) Address [address] [place] [id number] Care Team Providers Care Global Human Resources Director Name Role Phone Unavailable Unavailable Unavailable Allergies, Adverse Reactions, Alerts Allergy Name Allergy Type Status Severity Reaction(s) Onset Date Inactive Date Treating Clinician Comments No Known Allergies Allergy Active 2023-10 20:40:5 6 Medications Ordered Medication Name Filled Medication Name Start Date Stop Date Current Medication? Ordering Clinician Indication Dosage Frequency Signature (SIG) Comments Components calcitriol 2024-08 19:56: 18 Yes [id number] Number of Repeats Allowed: Frequency: Three times a week Flucelvax Quadrivalen t 2211-41262024-08 013 13:03: 56 11-07 04:59 :59 Yes [id number] Number of Repeats Allowed: Frequency: One time only Mircera 2024-08 012 18:18: 36 Yes [id number] Number of Repeats Allowed: Frequency: TYLOR dosing, every four weeks Venofer 24 14:39: 30 Yes [id number] Number of Repeats Allowed: Frequency: One time a weekDosesO rdered: Maintenanc e Dose 50 Milligram Route: Intravenou s calcitriol 11 18:32: 41 Yes [id number] Number of Repeats Allowed: Frequency: Three times a week Mircera 811 15:01: 19 Yes [id number] Number of Repeats Allowed: Frequency: TYLOR dosing, every two weeks calcitriol 14 18:53: 09 Yes [id number] Number of Repeats Allowed: Frequency: Three times a week Mircera 02-14 15:44: 00 Yes [id number] Number of Repeats Allowed: Frequency: TYLOR dosing, every two weeks heparin sodium, porcine 2023-08 20:56: 02 Yes [id number] Number of Repeats Allowed: Frequency: Every Dialysis TreatmentD osesOrdere d: Hourly Dose 1500 Units/Hr 1:1000 Units/mLRo crow: Intravenou s heparin sodium, porcine 11-17 09:13: 36 Yes [id number] Number of Repeats Allowed: Frequency: Every Dialysis TreatmentD osesOrdere d: Loading Dose 2500 Units 1:1000 Units/mLRo crow: Intravenou s Oxygen 10-26 21:00: 03 Yes [id number] Number of Repeats Allowed: Frequency: As needed ondansetron hydrochlori de 10-26 20:59: 56 Yes [id number] Number of Repeats Allowed: Frequency: Every 4 hours as needed Normal Saline Solution 0.9% NaCl 10-26 20:59: 29 Yes [id number] Number of Repeats Allowed: Frequency: As needed EpiPen 2-Jesse 10-26 20:59: 22 Yes [id number] Number of Repeats Allowed: Frequency: Every 4 hours as needed diphenhydra mine hydrochlori de 10-26 20:59: 04 Yes [id number] Number of Repeats Allowed: Frequency: Every 4 hours as needed diphenhydra mine hydrochlori de 10-26 20:58: 54 Yes [id number] Number of Repeats Allowed: Frequency: Every 4 hours as needed clonidine 10-26 20:58: 42 Yes [id number] Number of Repeats Allowed: Frequency: Every 4 hours as needed acetaminoph en 10-26 20:58: 09 Yes [id number] Number of Repeats Allowed: Frequency: Every 4 hours as needed Problems This patient has no known problems. Procedures Procedure Date / Time Performed Performing Clinician Francisca ce Details AV Fistula 2024-01-25 05:00:00 Access Site Forearm (Left) Access Use Start Date 2024-03-18 05:00:0 0 Central Venous Catheter (CVC)2023-10-27 05:00:00 Access Site Chest (Right) Access Use Start Date 2023-10-27 05:00:0 0 Access Use End Date 2024-05-09 05:00:00 DIALYSIS TREATMENT INFORMATION Conventional Hemodialysis Date Type Treatment Start Date Treatment End Date Pre-Treatment Vitals Post-Treatment Vitals Weight Gain BFR DFR Actual UF Dialysis Access Octob er 2024 In-Ce nter Hemod ialys is Treat ment 2025-05-26 T09:58:26. 000Z 2025-05-26 T13:23:01. 000Z BP Sitting (Pre-Dialysis) 166/89 mmHg BP Sitting (Post-D ialysis ) 124/ 76 mmHg Sitting Heart Rate Pre-Dialysis 89 BPM BP Standing (Post-Dialysis) 118/68 mmHg Temperature Pre-Dialysis 97.3 degF Sitting Heart Ra te Post-Dialysis 93 BPM Standing Heart Rate Post-Rina lysis 104 BPM Temperature Post-Dialysis 97 .3 degF May 24, 2025 In-Center Hemodialysis Treatment 2901-02-81R93:59:00.000Z 3953-26-11Y26:33:05.000Z BP Sitting (Pre-Dialysis) 169/89 mmHg BP Sitting (Post-Dialysis) 132/79 mmHg Concurrent Access: falseAV Fistula Forearm (Left) Arterial BP Standing (Pre-Dialysis) 164/92 mmHg BP Standing (P ost-Dialysis) 12/72 mmHg Sitting Heart Rate Pre-Dialysis 86 BPM Sitting Heart Rate Post-Dialysis 79 BPM Standing Heart Rate Pre-Dialysis 88 BPM Standing Heart Rate Post-Dialysis 89 BPM Temperature Pre-Dialysis 97.5 degF May 22, 2025 In-Center Hemodialysis Treatment 6658-01-74O96:14:39.000Z 8487-09-15I15:44:39.000Z BP Sitting (Pre-Dialysis) 161/86 mmHg BP Sitting (Post-Dialysis) 163/70 mmHg Concurrent Access: falseAV Fistula Forearm (Left) Arterial BP Standing (Pre-Dialysis) 152/75 mmHg Sitti ng Heart Rate Post-Dialysis 103 BPM Sitting Heart Rate Pre-Dialysis 76 BPM Temperatu re Post-Dialysis 98.1 degF Standing Heart Rate Pre-Dialysis 78 BPM Temperature Pre-Dialysis 97.9 degF May 19, 2025 In-Center Hemodialysis Treatment 1292-02-19B12:04:00.000Z 8042-25-42A76:40:28.000Z BP Sitting (Pre-Dialysis) 165/92 mmHg BP Sitting (Post-Dialysis) 130/87 mmHg Concurrent Access: falseAV Fistula Forearm (Left) Arterial BP Standing (Pre-Dialysis) 168/85 mmHg BP Standing (P ost-Dialysis) 134/79 mmHg Sitting Heart Rate Pre-Dialysis 84 BPM Sitting Heart Rate Post-Dialysis 84 BPM Standing Heart Rate Pre-Dialysis 86 BPM Standing Heart Rate Post-Dialysis 100 BPM Temperature Pre-Dialysis 98.1 degF Temperature Post -Dialysis 97.5 degF May 17, 2025 In-Center Hemodialysis Treatment 4622-62-02X83:19:25.000Z 7638-26-59E49:50:15.000Z BP Sitting (Pre-Dialysis) 195/83 mmHg BP Sitting (Post-Dialysis) 154/81 mmHg Concurrent Access: falseAV Fistula Forearm (Left) Arterial BP Standing (Pre-Dialysis) 170/89 mmHg BP Standing (P ost-Dialysis) 113/72 mmHg Sitting Heart Rate Pre-Dialysis 78 BPM Sitting Heart Rate Post-Dialysis 85 BPM Standing Heart Rate Pre-Dialysis 82 BPM Standing Heart Rate Post-Dialysis 90 BPM Temperature Pre-Dialysis 97.3 degF Temperature Post -Dialysis 98 degF May 15, 2025 In-Center Hemodialysis Treatment 7112-14-14C55:13:22.000Z 5077-64-50U72:45:02.000Z BP Sitting (Pre-Dialysis) 150/80 mmHg BP Sitting (Post-Dialysis) 109/77 mmHg Concurrent Access: falseAV Fistula Forearm (Left) Arterial BP Standing (Pre-Dialysis) 170/82 mmHg Sitti ng Heart Rate Post-Dialysis 82 BPM Sitting Heart Rate Pre-Dialysis 76 BPM Temperatu re Post-Dialysis 97.7 degF Standing Heart Rate Pre-Dialysis 79 BPM Temperature Pre-Dialysis 97.6 degF May 12, 2025 In-Center Hemodialysis Treatment 3437-44-78B07:14:58.000Z 5759-65-81X71:44:58.000Z BP Sitting (Pre-Dialysis) 178/84 mmHg BP Sitting (Post-Dialysis) 118/75 mmHg Concurrent Access: falseAV Fistula Forearm (Left) Arterial BP Standing (Pre-Dialysis) 168/80 mmHg BP Standing (P ost-Dialysis) 128/63 mmHg Sitting Heart Rate Pre-Dialysis 77 BPM Sitting Heart Rate Post-Dialysis 78 BPM Standing Heart Rate Pre-Dialysis 80 BPM Standing Heart Rate Post-Dialysis 84 BPM Temperature Pre-Dialysis 98 degF Temperature Post -Dialysis 97.6 degF May 10, 2025 In-Center Hemodialysis Treatment 4509-83-21R47:04:31.000Z 5611-82-75D32:35:21.000Z BP Sitting (Pre-Dialysis) 173/95 mmHg BP Sitting (Post-Dialysis) 139/79 mmHg Concurrent Access: falseAV Fistula Forearm (Left) Arterial BP Standing (Pre-Dialysis) 150/85 mmHg BP Standing (P ost-Dialysis) 135/74 mmHg Sitting Heart Rate Pre-Dialysis 76 BPM Sitting Heart Rate Post-Dialysis 79 BPM Standing Heart Rate Pre-Dialysis 82 BPM Standing Heart Rate Post-Dialysis 88 BPM Temperature Pre-Dialysis 97.7 degF Temperature Post -Dialysis 98 degF May 08, 2025 In-Center Hemodialysis Treatment 5843-27-51J96:22:00.000Z 6728-00-13F94:56:27.000Z BP Sitting (Pre-Dialysis) 174/100 mmHg BP Sitting (Post-Dialysis) 110/79 mmHg Concurrent Access: falseAV Fistula Forearm (Left) Arterial BP Standing (Pre-Dialysis) 162/91 mmHg Sitti ng Heart Rate Post-Dialysis 80 BPM Sitting Heart Rate Pre-Dialysis 80 BPM Temperatu re Post-Dialysis 97.6 degF Standing Heart Rate Pre-Dialysis 82 BPM Temperature Pre-Dialysis 97.9 degF May 05, 2025 In-Center Hemodialysis Treatment 3219-61-36I19:32:02.000Z 9982-22-58D14:49:07.000Z BP Sitting (Pre-Dialysis) 146/80 mmHg BP Sitting (Post-Dialysis) 132/82 mmHg Concurrent Access: falseAV Fistula Forearm (Left) Arterial BP Standing (Pre-Dialysis) 153/90 mmHg BP Standing (P ost-Dialysis) 118/80 mmHg Sitting Heart Rate Pre-Dialysis 80 BPM Sitting Heart Rate Post-Dialysis 86 BPM Standing Heart Rate Pre-Dialysis 83 BPM Standing Heart Rate Post-Dialysis 87 BPM Temperature Pre-Dialysis 98.1 degF Temperature Post -Dialysis 98.3 degF May 03, 2025 In-Center Hemodialysis Treatment 8154-11-38T10:26:34.000Z 5341-61-45S89:54:54.000Z BP Sitting (Pre-Dialysis) 171/96 mmHg BP Sitting (Post-Dialysis) 122/76 mmHg Concurrent Access: falseAV Fistula Forearm (Left) Arterial BP Standing (Pre-Dialysis) 150/78 mmHg BP Standing (P ost-Dialysis) 119/56 mmHg Sitting Heart Rate Pre-Dialysis 76 BPM Sitting Heart Rate Post-Dialysis 79 BPM Standing Heart Rate Pre-Dialysis 80 BPM Standing Heart Rate Post-Dialysis 90 BPM Temperature Pre-Dialysis 97.2 degF Temperature Post -Dialysis 98.4 degF May 01, 2025 In-Center Hemodialysis Treatment 5564-21-91O07:08:25.000Z 6139-99-32K05:38:25.000Z BP Sitting (Pre-Dialysis) 136/71 mmHg BP Sitting (Post-Dialysis) 120/68 mmHg Concurrent Access: falseAV Fistula Forearm (Left) Arterial BP Standing (Pre-Dialysis) 135/74 mmHg BP Standing (P ost-Dialysis) 102/60 mmHg Sitting Heart Rate Pre-Dialysis 80 BPM Sitting Heart Rate Post-Dialysis 61 BPM Standing Heart Rate Pre-Dialysis 84 BPM Standing Heart Rate Post-Dialysis 89 BPM Temperature Pre-Dialysis 97.9 degF Temperature Post -Dialysis 97.7 degF April 28, 2025 In-Center Hemodialysis Treatment 8801-54-17J85:13:33.000Z 5709-27-36G88:43:58.000Z BP Sitting (Pre-Dialysis) 151/78 mmHg BP Sitting (Post-Dialysis) 119/82 mmHg Concurrent Access: falseAV Fistula Forearm (Left) Arterial Sitting Heart Rate Pre-Dialysis 78 BPM BP Standing (Post-Dialysis) 137/62 mmHg Temperature Pre-Dialysis 97.3 degF Sitting Heart Ra te Post-Dialysis 78 BPM Standing Heart Rate Post-Rina lysis 86 BPM Temperature Post-Dialysis 98 .1 degF April 26, 2025 In-Center Hemodialysis Treatment 0870-53-24Q74:19:13.000Z 3063-19-79N75:54:13.000Z BP Sitting (Pre-Dialysis) 144/75 mmHg BP Sitting (Post-Dialysis) 119/74 mmHg Concurrent Access: falseAV Fistula Forearm (Left) Arterial BP Standing (Pre-Dialysis) 155/74 mmHg BP Standing (P ost-Dialysis) 110/55 mmHg Sitting Heart Rate Pre-Dialysis 76 BPM Sitting Heart Rate Post-Dialysis 77 BPM Standing Heart Rate Pre-Dialysis 81 BPM Standing Heart Rate Post-Dialysis 84 BPM Temperature Pre-Dialysis 98.2 degF Temperature Post -Dialysis 97.8 degF April 24, 2025 In-Center Hemodialysis Treatment 4865-97-78M94:13:16.000Z 7904-81-45X73:13:16.000Z BP Sitting (Pre-Dialysis) 162/83 mmHg BP Sitting (Post-Dialysis) 119/74 mmHg Concurrent Access: falseAV Fistula Forearm (Left) Arterial BP Standing (Pre-Dialysis) 160/85 mmHg Sitti ng Heart Rate Post-Dialysis 80 BPM Sitting Heart Rate Pre-Dialysis 79 BPM Temperatu re Post-Dialysis 96.6 degF Standing Heart Rate Pre-Dialysis 91 BPM Temperature Pre-Dialysis 98.1 degF April 21, 2025 In-Center Hemodialysis Treatment 6459-92-25P89:13:32.000Z 3525-75-06Y61:56:27.000Z BP Sitting (Pre-Dialysis) 138/84 mmHg BP Sitting (Post-Dialysis) 123/74 mmHg Concurrent Access: falseAV Fistula Forearm (Left) Arterial BP Standing (Pre-Dialysis) 121/76 mmHg BP Standing (P ost-Dialysis) 109/67 mmHg Sitting Heart Rate Pre-Dialysis 84 BPM Sitting Heart Rate Post-Dialysis 78 BPM Standing Heart Rate Pre-Dialysis 82 BPM Standing Heart Rate Post-Dialysis 92 BPM Temperature Pre-Dialysis 97.7 degF Temperature Post -Dialysis 98 degF April 19, 2025 In-Center Hemodialysis Treatment 9001-10-36U36:15:00.000Z 0006-93-76A71:46:00.000Z BP Sitting (Pre-Dialysis) 155/80 mmHg BP Sitting (Post-Dialysis) 126/61 mmHg Concurrent Access: falseAV Fistula Forearm (Left) Arterial BP Standing (Pre-Dialysis) 148/91 mmHg BP Standing (P ost-Dialysis) 109/59 mmHg Sitting Heart Rate Pre-Dialysis 81 BPM Sitting Heart Rate Post-Dialysis 86 BPM Standing Heart Rate Pre-Dialysis 83 BPM Standing Heart Rate Post-Dialysis 90 BPM April 17, 2025 In-Center Hemodialysis Treatment 5622-69-32V41:39:00.000Z 7714-92-15D66:34:34.000Z BP Sitting (Pre-Dialysis) 164/96 mmHg BP Sitting (Post-Dialysis) 99/71 mmHg Concurrent Access: falseAV Fistula Forearm (Left) Arterial BP Standing (Pre-Dialysis) 143/94 mmHg BP Standing (P ost-Dialysis) 102/59 mmHg Sitting Heart Rate Pre-Dialysis 76 BPM Sitting Heart Rate Post-Dialysis 80 BPM Standing Heart Rate Pre-Dialysis 81 BPM Standing Heart Rate Post-Dialysis 96 BPM Temperature Pre-Dialysis 97.5 degF Temperature Post -Dialysis 97.9 degF April 14, 2025 In-Center Hemodialysis Treatment 3939-44-60G97:14:00.000Z 7614-57-47I02:29:51.000Z BP Sitting (Pre-Dialysis) 151/89 mmHg BP Sitting (Post-Dialysis) 99/59 mmHg Concurrent Access: falseAV Fistula Forearm (Left) Arterial BP Standing (Pre-Dialysis) 139/79 mmHg BP Standing (P ost-Dialysis) 120/69 mmHg Sitting Heart Rate Pre-Dialysis 82 BPM Sitting Heart Rate Post-Dialysis 86 BPM Standing Heart Rate Pre-Dialysis 86 BPM Standing Heart Rate Post-Dialysis 86 BPM Temperature Pre-Dialysis 98.1 degF Temperature Post -Dialysis 97.9 degF April 12, 2025 In-Center Hemodialysis Treatment 3362-59-39Z63:21:55.000Z 6674-17-68T64:57:45.000Z BP Sitting (Pre-Dialysis) 155/87 mmHg BP Sitting (Post-Dialysis) 117/77 mmHg Concurrent Access: falseAV Fistula Forearm (Left) Arterial BP Standing (Pre-Dialysis) 166/94 mmHg BP Standing (P ost-Dialysis) 100/72 mmHg Sitting Heart Rate Pre-Dialysis 80 BPM Sitting Heart Rate Post-Dialysis 82 BPM Standing Heart Rate Pre-Dialysis 86 BPM Standing Heart Rate Post-Dialysis 85 BPM Temperature Pre-Dialysis 97.9 degF April 10, 2025 In-Center Hemodialysis Treatment 3103-72-67R13:12:33.000Z 9516-80-55Z09:42:58.000Z BP Sitting (Pre-Dialysis) 130/77 mmHg BP Sitting (Post-Dialysis) 111/55 mmHg Concurrent Access: falseAV Fistula Forearm (Left) Arterial BP Standing (Pre-Dialysis) 151/81 mmHg BP Standing (P ost-Dialysis) 119/54 mmHg Sitting Heart Rate Pre-Dialysis 76 BPM Sitting Heart Rate Post-Dialysis 102 BPM Standing Heart Rate Pre-Dialysis 81 BPM Standing Heart Rate Post-Dialysis 83 BPM Temperature Pre-Dialysis 97.9 degF Temperature Post -Dialysis 98 degF April 07, 2025 In-Center Hemodialysis Treatment 1073-08-47T92:29:13.000Z 3255-26-69Q65:53:23.000Z BP Sitting (Pre-Dialysis) 156/94 mmHg BP Sitting (Post-Dialysis) 127/78 mmHg Concurrent Access: falseAV Fistula Forearm (Left) Arterial BP Standing (Pre-Dialysis) 171/98 mmHg BP Standing (P ost-Dialysis) 127/70 mmHg Sitting Heart Rate Pre-Dialysis 84 BPM Sitting Heart Rate Post-Dialysis 78 BPM Standing Heart Rate Pre-Dialysis 85 BPM Standing Heart Rate Post-Dialysis 75 BPM Temperature Pre-Dialysis 97.2 degF Temperature Post -Dialysis 97.6 degF April 05, 2025 In-Center Hemodialysis Treatment 7530-23-44U08:09:20.000Z 1610-60-59Z31:35:10.000Z BP Sitting (Pre-Dialysis) 166/84 mmHg BP Sitting (Post-Dialysis) 135/72 mmHg Concurrent Access: falseAV Fistula Forearm (Left) Arterial BP Standing (Pre-Dialysis) 159/104 mmHg BP Standing (P ost-Dialysis) 143/86 mmHg Sitting Heart Rate Pre-Dialysis 79 BPM Sitting Heart Rate Post-Dialysis 81 BPM Standing Heart Rate Pre-Dialysis 85 BPM Standing Heart Rate Post-Dialysis 79 BPM Temperature Pre-Dialysis 97.2 degF Temperature Post -Dialysis 97.3 degF April 03, 2025 In-Center Hemodialysis Treatment 4932-97-69K13:16:24.000Z 5565-86-35O65:54:21.000Z BP Sitting (Pre-Dialysis) 180/92 mmHg BP Sitting (Post-Dialysis) 137/92 mmHg Concurrent Access: falseAV Fistula Forearm (Left) Arterial BP Standing (Pre-Dialysis) 180/98 mmHg BP Standing (P ost-Dialysis) 127/60 mmHg Sitting Heart Rate Pre-Dialysis 80 BPM Sitting Heart Rate Post-Dialysis 78 BPM Standing Heart Rate Pre-Dialysis 84 BPM Standing Heart Rate Post-Dialysis 89 BPM Temperature Pre-Dialysis 98 degF Temperature Post -Dialysis 97.5 degF March 29, 2025 In-Center Hemodialysis Treatment 9089-75-94F14:28:05.000Z 7063-34-06R76:58:05.000Z BP Sitting (Pre-Dialysis) 156/79 mmHg BP Sitting (Post-Dialysis) 123/69 mmHg Concurrent Access: falseAV Fistula Forearm (Left) Arterial BP Standing (Pre-Dialysis) 151/91 mmHg BP Standing (P ost-Dialysis) 111/75 mmHg Sitting Heart Rate Pre-Dialysis 83 BPM Sitting Heart Rate Post-Dialysis 80 BPM Standing Heart Rate Pre-Dialysis 85 BPM Standing Heart Rate Post-Dialysis 86 BPM Temperature Pre-Dialysis 98 degF March 27, 2025 In-Center Hemodialysis Treatment 3816-57-05D64:36:07.000Z 9600-19-64O39:07:22.000Z BP Sitting (Pre-Dialysis) 153/87 mmHg BP Sitting (Post-Dialysis) 118/63 mmHg Concurrent Access: falseAV Fistula Forearm (Left) Arterial BP Standing (Pre-Dialysis) 161/93 mmHg Sitti ng Heart Rate Post-Dialysis 80 BPM Sitting Heart Rate Pre-Dialysis 78 BPM Temperatu re Post-Dialysis 97.4 degF Standing Heart Rate Pre-Dialysis 79 BPM Temperature Pre-Dialysis 97.7 degF March 24, 2025 In-Center Hemodialysis Treatment 6730-99-61N67:51:06.000Z 0379-70-57T86:19:26.000Z BP Sitting (Pre-Dialysis) 114/57 mmHg BP Sitting (Post-Dialysis) 126/79 mmHg Concurrent Access: falseAV Fistula Forearm (Left) Arterial BP Standing (Pre-Dialysis) 162/85 mmHg BP Standing (P ost-Dialysis) 111/66 mmHg Sitting Heart Rate Pre-Dialysis 69 BPM Sitting Heart Rate Post-Dialysis 81 BPM Standing Heart Rate Pre-Dialysis 86 BPM Standing Heart Rate Post-Dialysis 87 BPM Temperature Pre-Dialysis 97.3 degF Temperature Post -Dialysis 97.1 degF March 22, 2025 In-Center Hemodialysis Treatment 6580-42-01U54:48:00.000Z 2951-10-95I44:18:31.000Z BP Sitting (Pre-Dialysis) 168/86 mmHg BP Sitting (Post-Dialysis) 125/84 mmHg Concurrent Access: falseAV Fistula Forearm (Left) Arterial BP Standing (Pre-Dialysis) 178/89 mmHg BP Standing (P ost-Dialysis) 118/73 mmHg Sitting Heart Rate Pre-Dialysis 83 BPM Sitting Heart Rate Post-Dialysis 82 BPM Standing Heart Rate Pre-Dialysis 83 BPM Standing Heart Rate Post-Dialysis 92 BPM Temperature Pre-Dialysis 97.2 degF Temperature Post -Dialysis 97.6 degF March 20, 2025 In-Center Hemodialysis Treatment 6129-27-77C57:37:25.000Z 8999-65-32E69:06:35.000Z BP Sitting (Pre-Dialysis) 154/88 mmHg BP Sitting (Post-Dialysis) 120/73 mmHg Concurrent Access: falseAV Fistula Forearm (Left) Arterial BP Standing (Pre-Dialysis) 129/83 mmHg BP Standing (P ost-Dialysis) 103/63 mmHg Sitting Heart Rate Pre-Dialysis 80 BPM Sitting Heart Rate Post-Dialysis 79 BPM Standing Heart Rate Pre-Dialysis 84 BPM Standing Heart Rate Post-Dialysis 85 BPM Temperature Pre-Dialysis 97.5 degF Temperature Post -Dialysis 97.8 degF March 17, 2025 In-Center Hemodialysis Treatment 1466-97-08J03:30:56.000Z 7788-51-21B44:01:21.000Z BP Sitting (Pre-Dialysis) 174/67 mmHg BP Sitting (Post-Dialysis) 106/68 mmHg Concurrent Access: falseAV Fistula Forearm (Left) Arterial BP Standing (Pre-Dialysis) 156/77 mmHg BP Standing (P ost-Dialysis) 103/61 mmHg Sitting Heart Rate Pre-Dialysis 85 BPM Sitting Heart Rate Post-Dialysis 74 BPM Standing Heart Rate Pre-Dialysis 89 BPM Standing Heart Rate Post-Dialysis 84 BPM Temperature Pre-Dialysis 97.9 degF Temperature Post -Dialysis 97.8 degF March 15, 2025 In-Center Hemodialysis Treatment 9680-19-61Y34:42:49.000Z 0831-55-29W65:12:49.000Z BP Sitting (Pre-Dialysis) 160/88 mmHg BP Sitting (Post-Dialysis) 108/70 mmHg Concurrent Access: falseAV Fistula Forearm (Left) Arterial BP Standing (Pre-Dialysis) 149/81 mmHg BP Standing (P ost-Dialysis) 100/56 mmHg Sitting Heart Rate Pre-Dialysis 81 BPM Sitting Heart Rate Post-Dialysis 79 BPM Standing Heart Rate Pre-Dialysis 86 BPM Standing Heart Rate Post-Dialysis 87 BPM Temperature Pre-Dialysis 98 degF Temperature Post -Dialysis 97.4 degF March 13, 2025 In-Center Hemodialysis Treatment 6147-64-96S81:34:06.000Z 1777-44-41C36:17:51.000Z BP Sitting (Pre-Dialysis) 170/85 mmHg BP Sitting (Post-Dialysis) 85/63 mmHg Concurrent Access: falseAV Fistula Forearm (Left) Arterial BP Standing (Pre-Dialysis) 151/76 mmHg BP Standing (P ost-Dialysis) 109/58 mmHg Sitting Heart Rate Pre-Dialysis 90 BPM Sitting Heart Rate Post-Dialysis 90 BPM Standing Heart Rate Pre-Dialysis 84 BPM Standing Heart Rate Post-Dialysis 97 BPM Temperature Pre-Dialysis 98.1 degF March 10, 2025 In-Center Hemodialysis Treatment 5001-51-95A99:27:53.000Z 8625-85-10D84:55:48.000Z BP Sitting (Pre-Dialysis) 172/94 mmHg BP Sitting (Post-Dialysis) 109/63 mmHg Concurrent Access: falseAV Fistula Forearm (Left) Arterial BP Standing (Pre-Dialysis) 155/90 mmHg BP Standing (P ost-Dialysis) 133/88 mmHg Sitting Heart Rate Pre-Dialysis 82 BPM Sitting Heart Rate Post-Dialysis 81 BPM Standing Heart Rate Pre-Dialysis 75 BPM Standing Heart Rate Post-Dialysis 115 BPM Temperature Pre-Dialysis 98.4 degF Temperature Post -Dialysis 98.2 degF March 08, 2025 In-Center Hemodialysis Treatment 8568-73-20L56:36:00.000Z 9782-59-65A66:08:01.000Z BP Sitting (Pre-Dialysis) 149/65 mmHg BP Sitting (Post-Dialysis) 117/72 mmHg Concurrent Access: falseAV Fistula Forearm (Left) Arterial BP Standing (Pre-Dialysis) 138/76 mmHg BP Standing (P ost-Dialysis) 110/60 mmHg Sitting Heart Rate Pre-Dialysis 80 BPM Sitting Heart Rate Post-Dialysis 80 BPM Standing Heart Rate Pre-Dialysis 83 BPM Standing Heart Rate Post-Dialysis 89 BPM Temperature Pre-Dialysis 98.5 degF Temperature Post -Dialysis 98.5 degF March 06, 2025 In-Center Hemodialysis Treatment 3105-68-09X82:26:21.000Z 0133-70-31N27:57:11.000Z BP Sitting (Pre-Dialysis) 173/89 mmHg BP Sitting (Post-Dialysis) 111/76 mmHg Concurrent Access: falseAV Fistula Forearm (Left) Arterial BP Standing (Pre-Dialysis) 160/83 mmHg BP Standing (P ost-Dialysis) 137/76 mmHg Sitting Heart Rate Pre-Dialysis 78 BPM Sitting Heart Rate Post-Dialysis 81 BPM Standing Heart Rate Pre-Dialysis 83 BPM Standing Heart Rate Post-Dialysis 85 BPM Temperature Pre-Dialysis 97.6 degF Temperature Post -Dialysis 97.6 degF March 03, 2025 In-Center Hemodialysis Treatment 1753-64-87X42:54:34.000Z 6238-86-13H22:26:28.000Z BP Sitting (Pre-Dialysis) 159/78 mmHg BP Sitting (Post-Dialysis) 121/76 mmHg Concurrent Access: falseAV Fistula Forearm (Left) Arterial BP Standing (Pre-Dialysis) 123/70 mmHg BP Standing (P ost-Dialysis) 130/80 mmHg Sitting Heart Rate Pre-Dialysis 82 BPM Sitting Heart Rate Post-Dialysis 80 BPM Standing Heart Rate Pre-Dialysis 83 BPM Standing Heart Rate Post-Dialysis 85 BPM Temperature Pre-Dialysis 98 degF Temperature Post -Dialysis 97.6 degF March 01, 2025 In-Center Hemodialysis Treatment 5894-61-70S67:12:05.000Z 7786-29-98L68:40:25.000Z BP Sitting (Pre-Dialysis) 182/95 mmHg BP Sitting (Post-Dialysis) 131/79 mmHg Concurrent Access: falseAV Fistula Forearm (Left) Arterial BP Standing (Pre-Dialysis) 182/93 mmHg BP Standing (P ost-Dialysis) 136/85 mmHg Sitting Heart Rate Pre-Dialysis 82 BPM Sitting Heart Rate Post-Dialysis 87 BPM Standing Heart Rate Pre-Dialysis 86 BPM Standing Heart Rate Post-Dialysis 90 BPM Temperature Pre-Dialysis 97.3 degF Temperature Post -Dialysis 97.7 degF February 27, 2025 In-Center Hemodialysis Treatment 7356-12-54J81:01:37.000Z 4927-16-37E28:38:42.000Z BP Sitting (Pre-Dialysis) 162/73 mmHg BP Sitting (Post-Dialysis) 118/76 mmHg Concurrent Access: falseAV Fistula Forearm (Left) Arterial BP Standing (Pre-Dialysis) 161/85 mmHg BP Standing (P ost-Dialysis) 131/41 mmHg Sitting Heart Rate Pre-Dialysis 76 BPM Sitting Heart Rate Post-Dialysis 81 BPM Standing Heart Rate Pre-Dialysis 79 BPM Standing Heart Rate Post-Dialysis 92 BPM Temperature Pre-Dialysis 98 degF Temperature Post -Dialysis 97.8 degF February 24, 2025 In-Center Hemodialysis Treatment 9345-40-21S35:04:50.000Z 8245-17-12N81:06:55.000Z BP Sitting (Pre-Dialysis) 169/89 mmHg BP Sitting (Post-Dialysis) 109/65 mmHg Concurrent Access: falseAV Fistula Forearm (Left) Arterial BP Standing (Pre-Dialysis) 140/90 mmHg BP Standing (P ost-Dialysis) 101/54 mmHg Sitting Heart Rate Pre-Dialysis 78 BPM Sitting Heart Rate Post-Dialysis 85 BPM Standing Heart Rate Pre-Dialysis 95 BPM Standing Heart Rate Post-Dialysis 92 BPM Temperature Pre-Dialysis 97.6 degF Temperature Post -Dialysis 97.7 degF February 22, 2025 In-Center Hemodialysis Treatment [id number]:04:32.000Z [id number]:34:07.000Z BP Sitting (Pre-Dialysis) 170/91 mmHg BP Sitting (Post-Dialysis) 135/92 mmHg Concurrent Access: falseAV Fistula Forearm (Left) Arterial BP Standing (Pre-Dialysis) 164/89 mmHg BP Standing (P ost-Dialysis) 107/63 mmHg Sitting Heart Rate Pre-Dialysis 85 BPM Sitting Heart Rate Post-Dialysis 85 BPM Standing Heart Rate Pre-Dialysis 89 BPM Standing Heart Rate Post-Dialysis 90 BPM Temperature Pre-Dialysis 97.4 degF Temperature Post -Dialysis 97.7 degF February 20, 2025 In-Center Hemodialysis Treatment [id number]:00:00.000Z [id number]:32:42.000Z BP Sitting (Pre-Dialysis) 150/87 mmHg BP Sitting (Post-Dialysis) 119/67 mmHg Concurrent Access: falseAV Fistula Forearm (Left) Arterial BP Standing (Pre-Dialysis) 144/89 mmHg BP Standing (P ost-Dialysis) 123/75 mmHg Sitting Heart Rate Pre-Dialysis 85 BPM Sitting Heart Rate Post-Dialysis 83 BPM Standing Heart Rate Pre-Dialysis 99 BPM Standing Heart Rate Post-Dialysis 92 BPM Temperature Pre-Dialysis 97.1 degF Temperature Post -Dialysis 97.6 degF February 17, 2025 In-Center Hemodialysis Treatment [id number]:02:00.000Z [id number]:38:22.000Z BP Sitting (Pre-Dialysis) 156/72 mmHg BP Sitting (Post-Dialysis) 169/52 mmHg Concurrent Access: falseAV Fistula Forearm (Left) Arterial BP Standing (Pre-Dialysis) 155/83 mmHg BP Standing (P ost-Dialysis) 118/67 mmHg Sitting Heart Rate Pre-Dialysis 80 BPM Sitting Heart Rate Post-Dialysis 86 BPM Standing Heart Rate Pre-Dialysis 85 BPM Standing Heart Rate Post-Dialysis 90 BPM Temperature Pre-Dialysis 97.3 degF Temperature Post -Dialysis 97.9 degF February 15, 2025 In-Center Hemodialysis Treatment [id number]:59:53.000Z [id number]:30:43.000Z BP Sitting (Pre-Dialysis) 166/84 mmHg BP Sitting (Post-Dialysis) 129/70 mmHg Concurrent Access: falseAV Fistula Forearm (Left) Arterial BP Standing (Pre-Dialysis) 189/88 mmHg BP Standing (P ost-Dialysis) 138/52 mmHg Sitting Heart Rate Pre-Dialysis 83 BPM Sitting Heart Rate Post-Dialysis 82 BPM Standing Heart Rate Pre-Dialysis 85 BPM Standing Heart Rate Post-Dialysis 90 BPM Temperature Pre-Dialysis 97.2 degF February 13, 2025 In-Center Hemodialysis Treatment [id number]:07:00.000Z [id number]:40:14.000Z BP Sitting (Pre-Dialysis) 194/108 mmHg BP Sitting (Post-Dialysis) 155/82 mmHg Concurrent Access: falseAV Fistula Forearm (Left) Arterial BP Standing (Pre-Dialysis) 189/100 mmHg BP Standing (P ost-Dialysis) 143/79 mmHg Sitting Heart Rate Pre-Dialysis 82 BPM Sitting Heart Rate Post-Dialysis 84 BPM Standing Heart Rate Pre-Dialysis 85 BPM Standing Heart Rate Post-Dialysis 93 BPM Temperature Pre-Dialysis 96.5 degF Temperature Post -Dialysis 96.7 degF February 10, 2025 In-Center Hemodialysis Treatment [id number]:31:00.000Z 1732-11-26L49:01:02.000Z BP Sitting (Pre-Dialysis) 134/74 mmHg BP Sitting (Post-Dialysis) 139/78 mmHg Concurrent Access: falseAV Fistula Forearm (Left) Arterial BP Standing (Pre-Dialysis) 148/77 mmHg BP Standing (P ost-Dialysis) 113/59 mmHg Sitting Heart Rate Pre-Dialysis 83 BPM Sitting Heart Rate Post-Dialysis 81 BPM Standing Heart Rate Pre-Dialysis 85 BPM Standing Heart Rate Post-Dialysis 89 BPM Temperature Pre-Dialysis 98 degF Temperature Post -Dialysis 97.3 degF February 08, 2025 In-Center Hemodialysis Treatment [id number]:00:32.000Z 7512-50-35V22:47:37.000Z BP Sitting (Pre-Dialysis) 162/92 mmHg BP Sitting (Post-Dialysis) 135/73 mmHg Concurrent Access: falseAV Fistula Forearm (Left) Arterial BP Standing (Pre-Dialysis) 154/90 mmHg BP Standing (P ost-Dialysis) 104/70 mmHg Sitting Heart Rate Pre-Dialysis 80 BPM Sitting Heart Rate Post-Dialysis 82 BPM Standing Heart Rate Pre-Dialysis 82 BPM Standing Heart Rate Post-Dialysis 87 BPM Temperature Pre-Dialysis 97.4 degF February 06, 2025 In-Center Hemodialysis Treatment 0537-43-01E01:14:00.000Z 8004-99-86E39:44:50.000Z BP Sitting (Pre-Dialysis) 167/88 mmHg BP Sitting (Post-Dialysis) 122/79 mmHg Concurrent Access: falseAV Fistula Forearm (Left) Arterial BP Standing (Pre-Dialysis) 166/86 mmHg BP Standing (P ost-Dialysis) 108/77 mmHg Sitting Heart Rate Pre-Dialysis 92 BPM Sitting Heart Rate Post-Dialysis 89 BPM Standing Heart Rate Pre-Dialysis 100 BPM Standing Heart Rate Post-Dialysis 94 BPM Temperature Pre-Dialysis 98.2 degF February 03, 2025 In-Center Hemodialysis Treatment [id number]:22:06.000Z [id number]:37:56.000Z BP Sitting (Pre-Dialysis) 139/75 mmHg BP Sitting (Post-Dialysis) 112/67 mmHg Concurrent Access: falseAV Fistula Forearm (Left) Arterial BP Standing (Pre-Dialysis) 152/80 mmHg Sitti ng Heart Rate Post-Dialysis 87 BPM Sitting Heart Rate Pre-Dialysis 87 BPM Temperatu re Post-Dialysis 97.6 degF Standing Heart Rate Pre-Dialysis 90 BPM Temperature Pre-Dialysis 97.9 degF February 01, 2025 In-Center Hemodialysis Treatment [id number]:09:15.000Z [id number]:39:15.000Z BP Sitting (Pre-Dialysis) 168/92 mmHg BP Sitting (Post-Dialysis) 105/79 mmHg Concurrent Access: falseAV Fistula Forearm (Left) Arterial BP Standing (Pre-Dialysis) 186/96 mmHg BP Standing (P ost-Dialysis) 117/63 mmHg Sitting Heart Rate Pre-Dialysis 88 BPM Sitting Heart Rate Post-Dialysis 89 BPM Standing Heart Rate Pre-Dialysis 88 BPM Standing Heart Rate Post-Dialysis 89 BPM Temperature Pre-Dialysis 97.5 degF Temperature Post -Dialysis 97.6 degF January 30, 2025 In-Center Hemodialysis Treatment [id number]:18:20.000Z 8094-38-04W62:50:28.000Z BP Sitting (Pre-Dialysis) 193/90 mmHg BP Sitting (Post-Dialysis) 114/60 mmHg Concurrent Access: falseAV Fistula Forearm (Left) Arterial BP Standing (Pre-Dialysis) 154/83 mmHg BP Standing (P ost-Dialysis) 124/72 mmHg Sitting Heart Rate Pre-Dialysis 87 BPM Sitting Heart Rate Post-Dialysis 90 BPM Standing Heart Rate Pre-Dialysis 96 BPM Standing Heart Rate Post-Dialysis 101 BPM Temperature Pre-Dialysis 98 degF Temperature Post -Dialysis 98.4 degF January 27, 2025 In-Center Hemodialysis Treatment [id number]:20:06.000Z 5093-43-42W45:45:56.000Z BP Sitting (Pre-Dialysis) 153/87 mmHg BP Sitting (Post-Dialysis) 98/69 mmHg Concurrent Access: falseAV Fistula Forearm (Left) Arterial BP Standing (Pre-Dialysis) 169/47 mmHg BP Standing (P ost-Dialysis) 114/63 mmHg Sitting Heart Rate Pre-Dialysis 85 BPM Sitting Heart Rate Post-Dialysis 90 BPM Standing Heart Rate Pre-Dialysis 93 BPM Standing Heart Rate Post-Dialysis 95 BPM Temperature Pre-Dialysis 97.5 degF Temperature Post -Dialysis 98.5 degF January 25, 2025 In-Center Hemodialysis Treatment [id number]:11:53.000Z 7491-79-50A56:42:18.000Z BP Sitting (Pre-Dialysis) 179/85 mmHg BP Sitting (Post-Dialysis) 127/76 mmHg Concurrent Access: falseAV Fistula Forearm (Left) Arterial Sitting Heart Rate Pre-Dialysis 84 BPM BP Standing (Post-Dialysis) 101/61 mmHg Temperature Pre-Dialysis 97.2 degF Sitting Heart Ra te Post-Dialysis 90 BPM Standing Heart Rate Post-Rina lysis 113 BPM Temperature Post-Dialysis 97 .7 degF January 23, 2025 In-Center Hemodialysis Treatment [id number]:19:00.000Z 6452-96-81P91:51:37.000Z BP Sitting (Pre-Dialysis) 207/114 mmHg BP Sitting (Post-Dialysis) 126/79 mmHg Concurrent Access: falseAV Fistula Forearm (Left) Arterial BP Standing (Pre-Dialysis) 191/91 mmHg BP Standing (P ost-Dialysis) 107/54 mmHg Sitting Heart Rate Pre-Dialysis 87 BPM Sitting Heart Rate Post-Dialysis 92 BPM Standing Heart Rate Pre-Dialysis 91 BPM Standing Heart Rate Post-Dialysis 101 BPM Temperature Pre-Dialysis 97.4 degF Temperature Post -Dialysis 98 degF January 20, 2025 In-Center Hemodialysis Treatment [id number]:08:40.000Z 0387-51-09R33:38:15.000Z BP Sitting (Pre-Dialysis) 167/88 mmHg BP Sitting (Post-Dialysis) 114/67 mmHg Concurrent Access: falseAV Fistula Forearm (Left) Arterial BP Standing (Pre-Dialysis) 146/92 mmHg Sitti ng Heart Rate Post-Dialysis 87 BPM Sitting Heart Rate Pre-Dialysis 85 BPM Temperatu re Post-Dialysis 97.2 degF Standing Heart Rate Pre-Dialysis 87 BPM Temperature Pre-Dialysis 98 degF January 18, 2025 In-Center Hemodialysis Treatment [id number]:42:00.000Z 1540-37-81E79:15:52.000Z BP Sitting (Pre-Dialysis) 168/118 mmHg BP Sitting (Post-Dialysis) 115/63 mmHg Concurrent Access: falseAV Fistula Forearm (Left) Arterial BP Standing (Pre-Dialysis) 181/104 mmHg BP Standing (P ost-Dialysis) 140/69 mmHg Sitting Heart Rate Pre-Dialysis 87 BPM Sitting Heart Rate Post-Dialysis 87 BPM Standing Heart Rate Pre-Dialysis 89 BPM Standing Heart Rate Post-Dialysis 90 BPM Temperature Pre-Dialysis 98 degF Temperature Post -Dialysis 97.6 degF January 16, 2025 In-Center Hemodialysis Treatment [id number]:38:00.000Z 6815-08-24A78:11:13.000Z BP Sitting (Pre-Dialysis) 171/88 mmHg BP Sitting (Post-Dialysis) 156/84 mmHg Concurrent Access: falseAV Fistula Forearm (Left) Arterial BP Standing (Pre-Dialysis) 214/127 mmHg BP Standing (P ost-Dialysis) 152/75 mmHg Sitting Heart Rate Pre-Dialysis 85 BPM Sitting Heart Rate Post-Dialysis 89 BPM Standing Heart Rate Pre-Dialysis 89 BPM Standing Heart Rate Post-Dialysis 92 BPM Temperature Pre-Dialysis 98 degF Temperature Post -Dialysis 98 degF January 10, 2025 In-Center Hemodialysis Treatment [id number]:17:00.000Z [id number]:59:37.000Z BP Sitting (Pre-Dialysis) 172/90 mmHg BP Sitting (Post-Dialysis) 140/75 mmHg Concurrent Access: falseAV Fistula Forearm (Left) Arterial BP Standing (Pre-Dialysis) 162/83 mmHg BP Standing (P ost-Dialysis) 121/72 mmHg Sitting Heart Rate Pre-Dialysis 90 BPM Sitting Heart Rate Post-Dialysis 83 BPM Standing Heart Rate Pre-Dialysis 90 BPM Standing Heart Rate Post-Dialysis 88 BPM Temperature Pre-Dialysis 98 degF Temperature Post -Dialysis 97.4 degF January 06, 2025 In-Center Hemodialysis Treatment [id number]:30:00.000Z 5922-65-47S99:00:00.000Z BP Sitting (Pre-Dialysis) 168/83 mmHg BP Sitting (Post-Dialysis) 126/73 mmHg Concurrent Access: falseAV Fistula Forearm (Left) Arterial BP Standing (Pre-Dialysis) 149/100 mmHg Sitti ng Heart Rate Post-Dialysis 92 BPM Sitting Heart Rate Pre-Dialysis 78 BPM Temperatu re Post-Dialysis 97.8 degF Standing Heart Rate Pre-Dialysis 86 BPM Temperature Pre-Dialysis 97.7 degF January 04, 2025 In-Center Hemodialysis Treatment [id number]:38:06.000Z 4119-75-26Z36:03:56.000Z BP Sitting (Pre-Dialysis) 181/98 mmHg BP Sitting (Post-Dialysis) 138/56 mmHg Concurrent Access: falseAV Fistula Forearm (Left) Arterial BP Standing (Pre-Dialysis) 204/104 mmHg Sitti ng Heart Rate Post-Dialysis 87 BPM Sitting Heart Rate Pre-Dialysis 83 BPM Temperatu re Post-Dialysis 97.7 degF Standing Heart Rate Pre-Dialysis 85 BPM Temperature Pre-Dialysis 98 degF January 02, 2025 In-Center Hemodialysis Treatment 7019-27-95F92:00:21.000Z 0501-35-54B07:36:36.000Z BP Sitting (Pre-Dialysis) 174/100 mmHg BP Sitting (Post-Dialysis) 133/65 mmHg Concurrent Access: falseAV Fistula Forearm (Left) Arterial BP Standing (Pre-Dialysis) 189/98 mmHg Sitti ng Heart Rate Post-Dialysis 81 BPM Sitting Heart Rate Pre-Dialysis 83 BPM Temperatu re Post-Dialysis 98.2 degF Standing Heart Rate Pre-Dialysis 85 BPM Temperature Pre-Dialysis 98.3 degF December 28, 2024 In-Center Hemodialysis Treatment [id number]:39:24.000Z 4662-93-62J28:09:49.000Z BP Sitting (Pre-Dialysis) 147/69 mmHg BP Sitting (Post-Dialysis) 143/64 mmHg Concurrent Access: falseAV Fistula Forearm (Left) Arterial BP Standing (Pre-Dialysis) 151/85 mmHg BP Standing (P ost-Dialysis) 103/71 mmHg Sitting Heart Rate Pre-Dialysis 84 BPM Sitting Heart Rate Post-Dialysis 87 BPM Standing Heart Rate Pre-Dialysis 85 BPM Standing Heart Rate Post-Dialysis 101 BPM Temperature Pre-Dialysis 98 degF Temperature Post -Dialysis 97.4 degF December 26, 2024 In-Center Hemodialysis Treatment [id number]:47:10.000Z 5113-50-75B20:16:45.000Z BP Sitting (Pre-Dialysis) 169/86 mmHg BP Sitting (Post-Dialysis) 139/87 mmHg Concurrent Access: falseAV Fistula Forearm (Left) Arterial BP Standing (Pre-Dialysis) 144/85 mmHg BP Standing (P ost-Dialysis) 114/68 mmHg Sitting Heart Rate Pre-Dialysis 80 BPM Sitting Heart Rate Post-Dialysis 82 BPM Standing Heart Rate Pre-Dialysis 85 BPM Standing Heart Rate Post-Dialysis 92 BPM Temperature Pre-Dialysis 98.2 degF Temperature Post -Dialysis 98 degF December 23, 2024 In-Center Hemodialysis Treatment [id number]:13:24.000Z 6008-83-77X57:38:49.000Z BP Sitting (Pre-Dialysis) 161/84 mmHg BP Sitting (Post-Dialysis) 114/77 mmHg Concurrent Access: falseAV Fistula Forearm (Left) Arterial BP Standing (Pre-Dialysis) 158/83 mmHg Sitti ng Heart Rate Post-Dialysis 82 BPM Sitting Heart Rate Pre-Dialysis 81 BPM Temperatu re Post-Dialysis 97.8 degF Standing Heart Rate Pre-Dialysis 87 BPM Temperature Pre-Dialysis 98.1 degF December 21, 2024 In-Center Hemodialysis Treatment 9726-52-72Z09:10:00.000Z 9807-11-22Q77:40:30.000Z BP Sitting (Pre-Dialysis) 175/82 mmHg BP Sitting (Post-Dialysis) 145/92 mmHg Concurrent Access: falseAV Fistula Forearm (Left) Arterial BP Standing (Pre-Dialysis) 174/102 mmHg BP Standing (P ost-Dialysis) 112/54 mmHg Sitting Heart Rate Pre-Dialysis 87 BPM Sitting Heart Rate Post-Dialysis 85 BPM Standing Heart Rate Pre-Dialysis 88 BPM Standing Heart Rate Post-Dialysis 92 BPM Temperature Pre-Dialysis 97.9 degF Temperature Post -Dialysis 97.9 degF December 19, 2024 In-Center Hemodialysis Treatment [id number]:58:18.000Z [id number]:24:33.000Z BP Sitting (Pre-Dialysis) 178/88 mmHg BP Sitting (Post-Dialysis) 138/77 mmHg Concurrent Access: falseAV Fistula Forearm (Left) Arterial BP Standing (Pre-Dialysis) 179/89 mmHg Sitti ng Heart Rate Post-Dialysis 85 BPM Sitting Heart Rate Pre-Dialysis 77 BPM Temperatu re Post-Dialysis 97.7 degF Standing Heart Rate Pre-Dialysis 80 BPM Temperature Pre-Dialysis 97.9 degF December 16, 2024 In-Center Hemodialysis Treatment 7849-29-10N05:16:12.000Z 7165-26-50K41:50:47.000Z BP Sitting (Pre-Dialysis) 136/80 mmHg BP Sitting (Post-Dialysis) 135/90 mmHg Concurrent Access: falseAV Fistula Forearm (Left) Arterial BP Standing (Pre-Dialysis) 131/83 mmHg Sitti ng Heart Rate Post-Dialysis 85 BPM Sitting Heart Rate Pre-Dialysis 89 BPM Temperatu re Post-Dialysis 97.7 degF Standing Heart Rate Pre-Dialysis 91 BPM Temperature Pre-Dialysis 97.9 degF December 14, 2024 In-Center Hemodialysis Treatment [id number]:11:58.000Z 1083-64-59Q85:48:38.000Z BP Sitting (Pre-Dialysis) 149/76 mmHg BP Sitting (Post-Dialysis) 108/67 mmHg Concurrent Access: falseAV Fistula Forearm (Left) Arterial BP Standing (Pre-Dialysis) 154/80 mmHg BP Standing (P ost-Dialysis) 162/61 mmHg Sitting Heart Rate Pre-Dialysis 81 BPM Sitting Heart Rate Post-Dialysis 89 BPM Standing Heart Rate Pre-Dialysis 84 BPM Standing Heart Rate Post-Dialysis 103 BPM Temperature Pre-Dialysis 97.8 degF Temperature Post -Dialysis 98 degF December 12, 2024 In-Center Hemodialysis Treatment [id number]:10:59.000Z 7597-98-72F91:40:59.000Z BP Sitting (Pre-Dialysis) 184/89 mmHg BP Sitting (Post-Dialysis) 115/66 mmHg Concurrent Access: falseAV Fistula Forearm (Left) Arterial BP Standing (Pre-Dialysis) 167/90 mmHg Sitti ng Heart Rate Post-Dialysis 87 BPM Sitting Heart Rate Pre-Dialysis 85 BPM Temperatu re Post-Dialysis 97.3 degF Standing Heart Rate Pre-Dialysis 87 BPM Temperature Pre-Dialysis 98.4 degF December 09, 2024 In-Center Hemodialysis Treatment [id number]:57:48.000Z 7768-99-44R23:24:28.000Z BP Sitting (Pre-Dialysis) 185/111 mmHg BP Sitting (Post-Dialysis) 135/68 mmHg Concurrent Access: falseAV Fistula Forearm (Left) Arterial BP Standing (Pre-Dialysis) 145/93 mmHg BP Standing (P ost-Dialysis) 102/71 mmHg Sitting Heart Rate Pre-Dialysis 87 BPM Sitting Heart Rate Post-Dialysis 88 BPM Standing Heart Rate Pre-Dialysis 99 BPM Standing Heart Rate Post-Dialysis 93 BPM Temperature Pre-Dialysis 98 degF Temperature Post -Dialysis 98.3 degF December 07, 2024 In-Center Hemodialysis Treatment [id number]:04:00.000Z 5796-82-45S05:37:50.000Z BP Sitting (Pre-Dialysis) 158/90 mmHg BP Sitting (Post-Dialysis) 118/78 mmHg Concurrent Access: falseAV Fistula Forearm (Left) Arterial BP Standing (Pre-Dialysis) 185/84 mmHg BP Standing (P ost-Dialysis) 116/67 mmHg Sitting Heart Rate Pre-Dialysis 86 BPM Sitting Heart Rate Post-Dialysis 99 BPM Standing Heart Rate Pre-Dialysis 96 BPM Standing Heart Rate Post-Dialysis 117 BPM Temperature Pre-Dialysis 97.8 degF Temperature Post -Dialysis 98.3 degF December 05, 2024 In-Center Hemodialysis Treatment 9420-63-35U58:01:39.000Z 0054-55-61W75:29:34.000Z BP Sitting (Pre-Dialysis) 167/85 mmHg BP Sitting (Post-Dialysis) 131/69 mmHg Concurrent Access: falseAV Fistula Forearm (Left) Arterial BP Standing (Pre-Dialysis) 151/91 mmHg BP Standing (P ost-Dialysis) 108/68 mmHg Sitting Heart Rate Pre-Dialysis 92 BPM Sitting Heart Rate Post-Dialysis 88 BPM Standing Heart Rate Pre-Dialysis 90 BPM Standing Heart Rate Post-Dialysis 94 BPM Temperature Pre-Dialysis 98.1 degF Temperature Post -Dialysis 98.1 degF December 02, 2024 In-Center Hemodialysis Treatment 8773-50-01U68:27:34.000Z 0660-06-65Z28:00:41.000Z BP Sitting (Pre-Dialysis) 154/82 mmHg BP Sitting (Post-Dialysis) 106/82 mmHg Concurrent Access: falseAV Fistula Forearm (Left) Arterial BP Standing (Pre-Dialysis) 139/71 mmHg Sitti ng Heart Rate Post-Dialysis 89 BPM Sitting Heart Rate Pre-Dialysis 86 BPM Temperatu re Post-Dialysis 97.3 degF Standing Heart Rate Pre-Dialysis 87 BPM Temperature Pre-Dialysis 97.3 degF November 30, 2024 In-Center Hemodialysis Treatment [id number]:02:12.000Z 8039-00-48X89:33:27.000Z BP Sitting (Pre-Dialysis) 177/95 mmHg BP Sitting (Post-Dialysis) 108/56 mmHg Concurrent Access: falseAV Fistula Forearm (Left) Arterial BP Standing (Pre-Dialysis) 154/89 mmHg BP Standing (P ost-Dialysis) 133/74 mmHg Sitting Heart Rate Pre-Dialysis 94 BPM Sitting Heart Rate Post-Dialysis 95 BPM Standing Heart Rate Pre-Dialysis 98 BPM Standing Heart Rate Post-Dialysis 90 BPM Temperature Pre-Dialysis 96.7 degF Temperature Post -Dialysis 98.1 degF November 28, 2024 In-Center Hemodialysis Treatment 5264-24-88A88:05:36.000Z 5799-20-04Z58:06:01.000Z BP Sitting (Pre-Dialysis) 179/92 mmHg BP Sitting (Post-Dialysis) 108/72 mmHg Concurrent Access: falseAV Fistula Forearm (Left) Arterial BP Standing (Pre-Dialysis) 150/82 mmHg BP Standing (P ost-Dialysis) 117/75 mmHg Sitting Heart Rate Pre-Dialysis 86 BPM Sitting Heart Rate Post-Dialysis 102 BPM Standing Heart Rate Pre-Dialysis 92 BPM Standing Heart Rate Post-Dialysis 57 BPM Temperature Pre-Dialysis 98.2 degF Temperature Post -Dialysis 98.3 degF November 25, 2024 In-Center Hemodialysis Treatment [id number]:09:36.000Z 8720-60-44L46:42:06.000Z BP Sitting (Pre-Dialysis) 153/51 mmHg BP Sitting (Post-Dialysis) 125/72 mmHg Concurrent Access: falseAV Fistula Forearm (Left) Arterial BP Standing (Pre-Dialysis) 164/88 mmHg BP Standing (P ost-Dialysis) 106/65 mmHg Sitting Heart Rate Pre-Dialysis 83 BPM Sitting Heart Rate Post-Dialysis 81 BPM Standing Heart Rate Pre-Dialysis 86 BPM Standing Heart Rate Post-Dialysis 97 BPM Temperature Pre-Dialysis 96.5 degF Temperature Post -Dialysis 98.2 degF November 23, 2024 In-Center Hemodialysis Treatment [id number]:22:37.000Z 1502-06-62K40:52:12.000Z BP Sitting (Pre-Dialysis) 175/79 mmHg BP Sitting (Post-Dialysis) 118/64 mmHg Concurrent Access: falseAV Fistula Forearm (Left) Arterial BP Standing (Pre-Dialysis) 179/93 mmHg Sitti ng Heart Rate Post-Dialysis 95 BPM Sitting Heart Rate Pre-Dialysis 84 BPM Temperatu re Post-Dialysis 97.7 degF Standing Heart Rate Pre-Dialysis 87 BPM Temperature Pre-Dialysis 97.3 degF November 21, 2024 In-Center Hemodialysis Treatment 6628-47-13W19:19:00.000Z 4804-44-58E04:53:02.000Z BP Sitting (Pre-Dialysis) 152/91 mmHg BP Sitting (Post-Dialysis) 122/71 mmHg Concurrent Access: falseAV Fistula Forearm (Left) Arterial BP Standing (Pre-Dialysis) 153/89 mmHg BP Standing (P ost-Dialysis) 113/54 mmHg Sitting Heart Rate Pre-Dialysis 85 BPM Sitting Heart Rate Post-Dialysis 86 BPM Standing Heart Rate Pre-Dialysis 87 BPM Standing Heart Rate Post-Dialysis 97 BPM Temperature Pre-Dialysis 98.3 degF Temperature Post -Dialysis 97.6 degF November 18, 2024 In-Center Hemodialysis Treatment [id number]:20:00.000Z 5963-23-60I19:50:00.000Z BP Sitting (Pre-Dialysis) 153/80 mmHg BP Sitting (Post-Dialysis) 134/70 mmHg Concurrent Access: falseAV Fistula Forearm (Left) Arterial Sitting Heart Rate Pre-Dialysis 90 BPM BP Standi ng (Post-Dialysis) 114/62 mmHg Sitting Heart Rate Post-Dial ysis 90 BPM Standing Heart Rate Post-Rina lysis 95 BPM November 16, 2024 In-Center Hemodialysis Treatment 5309-24-09A25:27:34.000Z 7278-47-49N34:02:34.000Z BP Sitting (Pre-Dialysis) 163/83 mmHg BP Sitting (Post-Dialysis) 103/72 mmHg Concurrent Access: falseAV Fistula Forearm (Left) Arterial BP Standing (Pre-Dialysis) 153/78 mmHg BP Standing (P ost-Dialysis) 122/76 mmHg Sitting Heart Rate Pre-Dialysis 85 BPM Sitting Heart Rate Post-Dialysis 89 BPM Standing Heart Rate Pre-Dialysis 88 BPM Standing Heart Rate Post-Dialysis 102 BPM Temperature Pre-Dialysis 97.9 degF Temperature Post -Dialysis 97.8 degF November 14, 2024 In-Center Hemodialysis Treatment [id number]:29:37.000Z 0330-47-73U24:59:12.000Z BP Sitting (Pre-Dialysis) 182/86 mmHg BP Sitting (Post-Dialysis) 147/77 mmHg Concurrent Access: falseAV Fistula Forearm (Left) Arterial BP Standing (Pre-Dialysis) 165/89 mmHg BP Standing (P ost-Dialysis) 101/57 mmHg Sitting Heart Rate Pre-Dialysis 85 BPM Sitting Heart Rate Post-Dialysis 85 BPM Standing Heart Rate Pre-Dialysis 90 BPM Standing Heart Rate Post-Dialysis 101 BPM Temperature Pre-Dialysis 97.4 degF Temperature Post -Dialysis 96.8 degF November 11, 2024 In-Center Hemodialysis Treatment 4062-11-93F99:17:09.000Z 6926-97-17I64:46:44.000Z BP Sitting (Pre-Dialysis) 194/92 mmHg BP Sitting (Post-Dialysis) 129/95 mmHg Concurrent Access: falseAV Fistula Forearm (Left) Arterial BP Standing (Pre-Dialysis) 162/91 mmHg BP Standing (P ost-Dialysis) 106/60 mmHg Sitting Heart Rate Pre-Dialysis 92 BPM Sitting Heart Rate Post-Dialysis 93 BPM Standing Heart Rate Pre-Dialysis 96 BPM Standing Heart Rate Post-Dialysis 106 BPM Temperature Pre-Dialysis 98.2 degF Temperature Post -Dialysis 97.9 degF November 09, 2024 In-Center Hemodialysis Treatment 1405-27-65V03:30:00.000Z 7167-53-42A21:58:32.000Z BP Sitting (Pre-Dialysis) 173/103 mmHg BP Sitting (Post-Dialysis) 116/70 mmHg Concurrent Access: falseAV Fistula Forearm (Left) Arterial BP Standing (Pre-Dialysis) 150/101 mmHg Sitti ng Heart Rate Post-Dialysis 92 BPM Sitting Heart Rate Pre-Dialysis 85 BPM Temperatu re Post-Dialysis 98 degF Standing Heart Rate Pre-Dialysis 89 BPM Temperature Pre-Dialysis 98 degF November 07, 2024 In-Center Hemodialysis Treatment [id number]:25:00.000Z 1378-83-39J92:57:13.000Z BP Sitting (Pre-Dialysis) 169/97 mmHg BP Sitting (Post-Dialysis) 132/87 mmHg Concurrent Access: falseAV Fistula Forearm (Left) Arterial BP Standing (Pre-Dialysis) 173/90 mmHg BP Standing (P ost-Dialysis) 109/61 mmHg Sitting Heart Rate Pre-Dialysis 88 BPM Sitting Heart Rate Post-Dialysis 85 BPM Standing Heart Rate Pre-Dialysis 95 BPM Standing Heart Rate Post-Dialysis 63 BPM Temperature Pre-Dialysis 98 degF Temperature Post -Dialysis 97.4 degF November 04, 2024 In-Center Hemodialysis Treatment [id number]:43:46.000Z 6256-09-37A12:49:36.000Z BP Sitting (Pre-Dialysis) 185/91 mmHg BP Sitting (Post-Dialysis) 131/73 mmHg Concurrent Access: falseAV Fistula Forearm (Left) Arterial BP Standing (Pre-Dialysis) 176/102 mmHg BP Standing (P ost-Dialysis) 110/62 mmHg Sitting Heart Rate Pre-Dialysis 91 BPM Sitting Heart Rate Post-Dialysis 84 BPM Standing Heart Rate Pre-Dialysis 90 BPM Standing Heart Rate Post-Dialysis 106 BPM Temperature Pre-Dialysis 98.4 degF Temperature Post -Dialysis 97.2 degF November 02, 2024 In-Center Hemodialysis Treatment 0421-07-09A50:27:34.000Z [id number]:52:59.000Z BP Sitting (Pre-Dialysis) 178/93 mmHg BP Sitting (Post-Dialysis) 128/64 mmHg Concurrent Access: falseAV Fistula Forearm (Left) Arterial BP Standing (Pre-Dialysis) 188/101 mmHg BP Standing (P ost-Dialysis) 121/66 mmHg Sitting Heart Rate Pre-Dialysis 83 BPM Sitting Heart Rate Post-Dialysis 87 BPM Standing Heart Rate Pre-Dialysis 96 BPM Standing Heart Rate Post-Dialysis 89 BPM Temperature Pre-Dialysis 98.7 degF Temperature Post -Dialysis 97.2 degF October 31, 2024 In-Center Hemodialysis Treatment [id number]:10:40.000Z [id number]:43:10.000Z BP Sitting (Pre-Dialysis) 161/87 mmHg BP Sitting (Post-Dialysis) 115/76 mmHg Concurrent Access: falseAV Fistula Forearm (Left) Arterial BP Standing (Pre-Dialysis) 164/90 mmHg BP Standing (P ost-Dialysis) 128/71 mmHg Sitting Heart Rate Pre-Dialysis 84 BPM Sitting Heart Rate Post-Dialysis 89 BPM Standing Heart Rate Pre-Dialysis 93 BPM Standing Heart Rate Post-Dialysis 100 BPM Temperature Pre-Dialysis 98.3 degF Temperature Post -Dialysis 96.9 degF October 28, 2024 In-Center Hemodialysis Treatment [id number]:09:57.000Z [id number]:41:37.000Z BP Sitting (Pre-Dialysis) 136/87 mmHg BP Sitting (Post-Dialysis) 131/76 mmHg Concurrent Access: falseAV Fistula Forearm (Left) Arterial BP Standing (Pre-Dialysis) 181/89 mmHg Sitti ng Heart Rate Post-Dialysis 89 BPM Sitting Heart Rate Pre-Dialysis 91 BPM Temperatu re Post-Dialysis 97.4 degF Standing Heart Rate Pre-Dialysis 91 BPM Temperature Pre-Dialysis 97.6 degF October 26, 2024 In-Center Hemodialysis Treatment [id number]:33:03.000Z [id number]:10:58.000Z BP Sitting (Pre-Dialysis) 167/89 mmHg BP Sitting (Post-Dialysis) 99/66 mmHg Concurrent Access: falseAV Fistula Forearm (Left) Arterial BP Standing (Pre-Dialysis) 170/95 mmHg BP Standing (P ost-Dialysis) 104/69 mmHg Sitting Heart Rate Pre-Dialysis 87 BPM Sitting Heart Rate Post-Dialysis 94 BPM Standing Heart Rate Pre-Dialysis 92 BPM Standing Heart Rate Post-Dialysis 94 BPM Temperature Pre-Dialysis 98.2 degF October 24, 2024 In-Center Hemodialysis Treatment [id number]:21:06.000Z [id number]:50:41.000Z BP Sitting (Pre-Dialysis) 166/93 mmHg BP Sitting (Post-Dialysis) 111/67 mmHg Concurrent Access: falseAV Fistula Forearm (Left) Arterial BP Standing (Pre-Dialysis) 184/107 mmHg BP Standing (P ost-Dialysis) 114/67 mmHg Sitting Heart Rate Pre-Dialysis 88 BPM Sitting Heart Rate Post-Dialysis 92 BPM Standing Heart Rate Pre-Dialysis 94 BPM Standing Heart Rate Post-Dialysis 96 BPM Temperature Pre-Dialysis 97.9 degF Temperature Post -Dialysis 98.1 degF October 21, 2024 In-Center Hemodialysis Treatment 8833-06-39F69:09:43.000Z 6789-07-51W04:40:08.000Z BP Sitting (Pre-Dialysis) 180/89 mmHg BP Sitting (Post-Dialysis) 112/77 mmHg Concurrent Access: falseAV Fistula Forearm (Left) Arterial BP Standing (Pre-Dialysis) 174/91 mmHg BP Standing (P ost-Dialysis) 117/81 mmHg Sitting Heart Rate Pre-Dialysis 82 BPM Sitting Heart Rate Post-Dialysis 89 BPM Standing Heart Rate Pre-Dialysis 84 BPM Standing Heart Rate Post-Dialysis 93 BPM Temperature Pre-Dialysis 97.8 degF Temperature Post -Dialysis 97.6 degF October 19, 2024 In-Center Hemodialysis Treatment [id number]:27:00.000Z 4133-90-97J36:57:30.000Z BP Sitting (Pre-Dialysis) 150/82 mmHg BP Sitting (Post-Dialysis) 148/75 mmHg Concurrent Access: falseAV Fistula Forearm (Left) Arterial BP Standing (Pre-Dialysis) 171/87 mmHg BP Standing (P ost-Dialysis) 108/65 mmHg Sitting Heart Rate Pre-Dialysis 82 BPM Sitting Heart Rate Post-Dialysis 92 BPM Standing Heart Rate Pre-Dialysis 85 BPM Standing Heart Rate Post-Dialysis 100 BPM Temperature Pre-Dialysis 97.4 degF Temperature Post -Dialysis 97.2 degF October 17, 2024 In-Center Hemodialysis Treatment [id number]:21:00.000Z 5973-85-69W52:53:25.000Z BP Sitting (Pre-Dialysis) 156/94 mmHg BP Sitting (Post-Dialysis) 133/84 mmHg Concurrent Access: falseAV Fistula Forearm (Left) Arterial BP Standing (Pre-Dialysis) 167/95 mmHg BP Standing (P ost-Dialysis) 116/66 mmHg Sitting Heart Rate Pre-Dialysis 86 BPM Sitting Heart Rate Post-Dialysis 89 BPM Standing Heart Rate Pre-Dialysis 87 BPM Standing Heart Rate Post-Dialysis 97 BPM Temperature Pre-Dialysis 97.9 degF Temperature Post -Dialysis 97.6 degF October 14, 2024 In-Center Hemodialysis Treatment 7998-54-29T38:54:37.000Z 6164-62-02Y47:27:32.000Z BP Sitting (Pre-Dialysis) 183/89 mmHg BP Sitting (Post-Dialysis) 133/82 mmHg Concurrent Access: falseAV Fistula Forearm (Left) Arterial BP Standing (Pre-Dialysis) 161/89 mmHg BP Standing (P ost-Dialysis) 115/68 mmHg Sitting Heart Rate Pre-Dialysis 85 BPM Sitting Heart Rate Post-Dialysis 87 BPM Standing Heart Rate Pre-Dialysis 89 BPM Standing Heart Rate Post-Dialysis 95 BPM Temperature Pre-Dialysis 97.3 degF Temperature Post -Dialysis 97 degF October 12, 2024 In-Center Hemodialysis Treatment [id number]:28:00.000Z 2943-85-92C72:29:00.000Z BP Sitting (Pre-Dialysis) 147/79 mmHg BP Sitting (Post-Dialysis) 124/63 mmHg Concurrent Access: falseAV Fistula Forearm (Left) Arterial BP Standing (Pre-Dialysis) 164/90 mmHg BP Standing (P ost-Dialysis) 93/52 mmHg Sitting Heart Rate Pre-Dialysis 85 BPM Sitting Heart Rate Post-Dialysis 90 BPM Standing Heart Rate Pre-Dialysis 87 BPM Standing Heart Rate Post-Dialysis 96 BPM Temperature Pre-Dialysis 98.1 degF Temperature Post -Dialysis 98 degF October 10, 2024 In-Center Hemodialysis Treatment 7785-05-94D19:29:00.000Z 8464-60-49G73:51:05.000Z BP Sitting (Pre-Dialysis) 174/95 mmHg BP Sitting (Post-Dialysis) 121/77 mmHg Concurrent Access: falseAV Fistula Forearm (Left) Arterial BP Standing (Pre-Dialysis) 155/83 mmHg Sitti ng Heart Rate Post-Dialysis 92 BPM Sitting Heart Rate Pre-Dialysis 82 BPM Temperatu re Post-Dialysis 97.7 degF Standing Heart Rate Pre-Dialysis 84 BPM Temperature Pre-Dialysis 98.3 degF October 07, 2024 In-Center Hemodialysis Treatment 0215-89-51E87:25:42.000Z 7198-41-54J63:54:00.000Z BP Sitting (Pre-Dialysis) 171/93 mmHg BP Sitting (Post-Dialysis) 128/71 mmHg Concurrent Access: falseAV Fistula Forearm (Left) Arterial BP Standing (Pre-Dialysis) 144/97 mmHg BP Standing (P ost-Dialysis) 184/66 mmHg Sitting Heart Rate Pre-Dialysis 85 BPM Sitting Heart Rate Post-Dialysis 85 BPM Standing Heart Rate Pre-Dialysis 88 BPM Standing Heart Rate Post-Dialysis 92 BPM Temperature Pre-Dialysis 98.3 degF Temperature Post -Dialysis 98.1 degF October 05, 2024 In-Center Hemodialysis Treatment 0981-84-12B68:22:00.000Z 9972-90-47E54:55:15.000Z BP Sitting (Pre-Dialysis) 167/92 mmHg BP Sitting (Post-Dialysis) 122/84 mmHg Concurrent Access: falseAV Fistula Forearm (Left) Arterial BP Standing (Pre-Dialysis) 184/86 mmHg BP Standing (P ost-Dialysis) 122/70 mmHg Sitting Heart Rate Pre-Dialysis 84 BPM Sitting Heart Rate Post-Dialysis 86 BPM Standing Heart Rate Pre-Dialysis 85 BPM Standing Heart Rate Post-Dialysis 92 BPM Temperature Pre-Dialysis 98.2 degF Temperature Post -Dialysis 98 degF October 03, 2024 In-Center Hemodialysis Treatment [id number]:29:00.000Z 8957-03-38A13:02:12.000Z BP Sitting (Pre-Dialysis) 189/103 mmHg BP Sitting (Post-Dialysis) 150/79 mmHg Concurrent Access: falseAV Fistula Forearm (Left) Arterial BP Standing (Pre-Dialysis) 192/105 mmHg Sitti ng Heart Rate Post-Dialysis 99 BPM Sitting Heart Rate Pre-Dialysis 94 BPM Temperatu re Post-Dialysis 97.9 degF Standing Heart Rate Pre-Dialysis 97 BPM Temperature Pre-Dialysis 98.1 degF September 30, 2024 In-Center Hemodialysis Treatment 4468-40-28X10:28:24.000Z 4598-27-78A71:56:44.000Z BP Sitting (Pre-Dialysis) 207/124 mmHg BP Sitting (Post-Dialysis) 136/76 mmHg Concurrent Access: falseAV Fistula Forearm (Left) Arterial BP Standing (Pre-Dialysis) 187/108 mmHg BP Standing (P ost-Dialysis) 142/70 mmHg Sitting Heart Rate Pre-Dialysis 89 BPM Sitting Heart Rate Post-Dialysis 92 BPM Standing Heart Rate Pre-Dialysis 92 BPM Standing Heart Rate Post-Dialysis 98 BPM Temperature Pre-Dialysis 98 degF Temperature Post -Dialysis 98 degF September 28, 2024 In-Center Hemodialysis Treatment [id number]:22:00.000Z 4835-45-06G81:55:00.000Z BP Sitting (Pre-Dialysis) 167/84 mmHg BP Sitting (Post-Dialysis) 113/80 mmHg Concurrent Access: falseAV Fistula Forearm (Left) Arterial BP Standing (Pre-Dialysis) 163/81 mmHg BP Standing (P ost-Dialysis) 125/81 mmHg Sitting Heart Rate Pre-Dialysis 84 BPM Sitting Heart Rate Post-Dialysis 83 BPM Standing Heart Rate Pre-Dialysis 85 BPM Standing Heart Rate Post-Dialysis 96 BPM Temperature Pre-Dialysis 97.9 degF Temperature Post -Dialysis 97.7 degF September 26, 2024 In-Center Hemodialysis Treatment 1044-44-07N97:26:00.000Z 0692-50-39R23:36:00.000Z BP Sitting (Pre-Dialysis) 181/90 mmHg BP Sitting (Post-Dialysis) 144/74 mmHg Concurrent Access: falseAV Fistula Forearm (Left) Arterial BP Standing (Pre-Dialysis) 158/97 mmHg Sitti ng Heart Rate Post-Dialysis 90 BPM Sitting Heart Rate Pre-Dialysis 86 BPM Temperatu re Post-Dialysis 97.7 degF Standing Heart Rate Pre-Dialysis 87 BPM Temperature Pre-Dialysis 98.4 degF September 23, 2024 In-Center Hemodialysis Treatment 8616-19-17C99:24:00.000Z 4925-86-62U33:57:07.000Z BP Sitting (Pre-Dialysis) 154/78 mmHg BP Sitting (Post-Dialysis) 111/74 mmHg Concurrent Access: falseAV Fistula Forearm (Left) Arterial BP Standing (Pre-Dialysis) 168/84 mmHg BP Standing (P ost-Dialysis) 99/75 mmHg Sitting Heart Rate Pre-Dialysis 89 BPM Sitting Heart Rate Post-Dialysis 89 BPM Standing Heart Rate Pre-Dialysis 92 BPM Standing Heart Rate Post-Dialysis 98 BPM Temperature Pre-Dialysis 98 degF Temperature Post -Dialysis 97.3 degF September 21, 2024 In-Center Hemodialysis Treatment [id number]:23:53.000Z 3434-16-89X80:55:58.000Z BP Sitting (Pre-Dialysis) 166/97 mmHg BP Sitting (Post-Dialysis) 116/71 mmHg Concurrent Access: falseAV Fistula Forearm (Left) Arterial BP Standing (Pre-Dialysis) 162/82 mmHg BP Standing (P ost-Dialysis) 118/63 mmHg Sitting Heart Rate Pre-Dialysis 92 BPM Sitting Heart Rate Post-Dialysis 90 BPM Standing Heart Rate Pre-Dialysis 94 BPM Standing Heart Rate Post-Dialysis 95 BPM Temperature Pre-Dialysis 97.6 degF Temperature Post -Dialysis 98 degF September 19, 2024 In-Center Hemodialysis Treatment 8003-76-13T62:28:06.000Z 6721-54-35S72:27:41.000Z BP Sitting (Pre-Dialysis) 193/106 mmHg BP Sitting (Post-Dialysis) 131/82 mmHg Concurrent Access: falseAV Fistula Forearm (Left) Arterial BP Standing (Pre-Dialysis) 189/104 mmHg BP Standing (P ost-Dialysis) 138/61 mmHg Sitting Heart Rate Pre-Dialysis 83 BPM Sitting Heart Rate Post-Dialysis 91 BPM Standing Heart Rate Pre-Dialysis 89 BPM Standing Heart Rate Post-Dialysis 93 BPM Temperature Pre-Dialysis 97.6 degF Temperature Post -Dialysis 97.7 degF September 16, 2024 In-Center Hemodialysis Treatment 9054-33-41P92:07:00.000Z 8620-62-87S20:38:51.000Z BP Sitting (Pre-Dialysis) 198/93 mmHg BP Sitting (Post-Dialysis) 154/84 mmHg Concurrent Access: falseAV Fistula Forearm (Left) Arterial BP Standing (Pre-Dialysis) 200/105 mmHg BP Standing (P ost-Dialysis) 141/53 mmHg Sitting Heart Rate Pre-Dialysis 89 BPM Sitting Heart Rate Post-Dialysis 87 BPM Standing Heart Rate Pre-Dialysis 94 BPM Standing Heart Rate Post-Dialysis 91 BPM Temperature Pre-Dialysis 97.1 degF Temperature Post -Dialysis 97.7 degF September 14, 2024 In-Center Hemodialysis Treatment 7978-76-60L59:29:20.000Z 6999-53-44W21:05:10.000Z BP Sitting (Pre-Dialysis) 170/80 mmHg BP Sitting (Post-Dialysis) 107/75 mmHg Concurrent Access: falseAV Fistula Forearm (Left) Arterial BP Standing (Pre-Dialysis) 170/80 mmHg BP Standing (P ost-Dialysis) 97/56 mmHg Sitting Heart Rate Pre-Dialysis 85 BPM Sitting Heart Rate Post-Dialysis 91 BPM Standing Heart Rate Pre-Dialysis 85 BPM Standing Heart Rate Post-Dialysis 100 BPM Temperature Pre-Dialysis 98.2 degF Temperature Post -Dialysis 98 degF September 12, 2024 In-Center Hemodialysis Treatment [id number]:25:00.000Z 7091-33-40P29:55:03.000Z BP Sitting (Pre-Dialysis) 184/98 mmHg BP Sitting (Post-Dialysis) 116/73 mmHg Concurrent Access: falseAV Fistula Forearm (Left) Arterial Sitting Heart Rate Pre-Dialysis 81 BPM BP Standi ng (Post-Dialysis) 137/64 mmHg Standing Heart Rate Pre-Dialysis 184 BPM Sitting Heart Rate Post-Dialysis 89 BPM Temperature Pre-Dialysis 98 degF Standing Heart R ate Post-Dialysis 93 BPM Temperature Post-Dialysis 98 .4 degF September 09, 2024 In-Center Hemodialysis Treatment 6240-76-83T25:05:00.000Z 6695-77-78Q43:29:59.000Z BP Sitting (Pre-Dialysis) 173/91 mmHg BP Sitting (Post-Dialysis) 149/79 mmHg Concurrent Access: falseAV Fistula Forearm (Left) Arterial BP Standing (Pre-Dialysis) 176/94 mmHg BP Standing (P ost-Dialysis) 124/96 mmHg Sitting Heart Rate Pre-Dialysis 78 BPM Sitting Heart Rate Post-Dialysis 88 BPM Standing Heart Rate Pre-Dialysis 87 BPM Standing Heart Rate Post-Dialysis 119 BPM Temperature Pre-Dialysis 98.1 degF Temperature Post -Dialysis 98 degF September 07, 2024 In-Center Hemodialysis Treatment [id number]:14:00.000Z 5436-88-25Z82:47:43.000Z BP Sitting (Pre-Dialysis) 152/97 mmHg BP Sitting (Post-Dialysis) 117/72 mmHg Concurrent Access: falseAV Fistula Forearm (Left) Arterial BP Standing (Pre-Dialysis) 158/96 mmHg BP Standing (P ost-Dialysis) 103/63 mmHg Sitting Heart Rate Pre-Dialysis 90 BPM Sitting Heart Rate Post-Dialysis 89 BPM Standing Heart Rate Pre-Dialysis 90 BPM Standing Heart Rate Post-Dialysis 95 BPM Temperature Pre-Dialysis 97.9 degF Temperature Post -Dialysis 98.1 degF September 05, 2024 In-Center Hemodialysis Treatment 8465-87-62Q61:22:00.000Z 6141-51-54I66:02:56.000Z BP Sitting (Pre-Dialysis) 179/105 mmHg BP Sitting (Post-Dialysis) 104/71 mmHg Concurrent Access: falseAV Fistula Forearm (Left) Arterial BP Standing (Pre-Dialysis) 160/101 mmHg BP Standing (P ost-Dialysis) 135/77 mmHg Sitting Heart Rate Pre-Dialysis 83 BPM Sitting Heart Rate Post-Dialysis 89 BPM Standing Heart Rate Pre-Dialysis 87 BPM Standing Heart Rate Post-Dialysis 96 BPM Temperature Pre-Dialysis 98.2 degF Temperature Post -Dialysis 97.4 degF September 02, 2024 In-Center Hemodialysis Treatment 6800-55-34P90:50:55.000Z 3594-55-74S67:21:45.000Z BP Sitting (Pre-Dialysis) 180/102 mmHg BP Sitting (Post-Dialysis) 157/78 mmHg Concurrent Access: falseAV Fistula Forearm (Left) Arterial BP Standing (Pre-Dialysis) 179/67 mmHg BP Standing (P ost-Dialysis) 153/77 mmHg Sitting Heart Rate Pre-Dialysis 96 BPM Sitting Heart Rate Post-Dialysis 91 BPM Standing Heart Rate Pre-Dialysis 104 BPM Standing Heart Rate Post-Dialysis 98 BPM Temperature Pre-Dialysis 98 degF Temperature Post -Dialysis 97.3 degF August 31, 2024 In-Center Hemodialysis Treatment 1512-42-57D17:29:00.000Z 1566-51-48H24:08:51.000Z BP Sitting (Pre-Dialysis) 181/93 mmHg BP Sitting (Post-Dialysis) 130/56 mmHg Concurrent Access: falseAV Fistula Forearm (Left) Arterial BP Standing (Pre-Dialysis) 171/91 mmHg BP Standing (P ost-Dialysis) 117/55 mmHg Sitting Heart Rate Pre-Dialysis 91 BPM Sitting Heart Rate Post-Dialysis 91 BPM Standing Heart Rate Pre-Dialysis 96 BPM Standing Heart Rate Post-Dialysis 100 BPM Temperature Pre-Dialysis 97.6 degF Temperature Post -Dialysis 98 degF August 29, 2024 In-Center Hemodialysis Treatment [id number]:42:25.000Z 3055-88-41H17:18:40.000Z BP Sitting (Pre-Dialysis) 191/99 mmHg BP Sitting (Post-Dialysis) 118/91 mmHg Concurrent Access: falseAV Fistula Forearm (Left) Arterial BP Standing (Pre-Dialysis) 170/99 mmHg BP Standing (P ost-Dialysis) 127/63 mmHg Sitting Heart Rate Pre-Dialysis 84 BPM Sitting Heart Rate Post-Dialysis 65 BPM Standing Heart Rate Pre-Dialysis 85 BPM Standing Heart Rate Post-Dialysis 94 BPM Temperature Pre-Dialysis 97.1 degF Temperature Post -Dialysis 97.6 degF August 26, 2024 In-Center Hemodialysis Treatment [id number]:14:00.000Z 1204-57-39P02:42:27.000Z BP Sitting (Pre-Dialysis) 174/87 mmHg BP Sitting (Post-Dialysis) 116/83 mmHg Concurrent Access: falseAV Fistula Forearm (Left) Arterial BP Standing (Pre-Dialysis) 148/86 mmHg Sitting Heart Rate Post-Dialysis 94 BPM Sitting Heart Rate Pre-Dialysis 89 BPM Standing Heart Rate Pre-Dialysis 94 BPM Temperature Pre-Dialysis 98.2 degF August 24, 2024 In-Center Hemodialysis Treatment 3211-22-56P05:27:00.000Z 8815-44-00P57:00:12.000Z BP Sitting (Pre-Dialysis) 184/96 mmHg BP Sitting (Post-Dialysis) 122/72 mmHg Concurrent Access: falseAV Fistula Forearm (Left) Arterial BP Standing (Pre-Dialysis) 194/94 mmHg BP Standing (P ost-Dialysis) 143/77 mmHg Sitting Heart Rate Pre-Dialysis 88 BPM Sitting Heart Rate Post-Dialysis 89 BPM Standing Heart Rate Pre-Dialysis 90 BPM Standing Heart Rate Post-Dialysis 95 BPM Temperature Pre-Dialysis 97.4 degF Temperature Post -Dialysis 97.3 degF August 22, 2024 In-Center Hemodialysis Treatment 6404-07-89K78:22:23.000Z 5555-89-31T24:31:08.000Z BP Sitting (Pre-Dialysis) 177/88 mmHg BP Sitting (Post-Dialysis) 139/80 mmHg Concurrent Access: falseAV Fistula Forearm (Left) Arterial BP Standing (Pre-Dialysis) 185/96 mmHg BP Standing (P ost-Dialysis) 139/69 mmHg Sitting Heart Rate Pre-Dialysis 84 BPM Sitting Heart Rate Post-Dialysis 84 BPM Standing Heart Rate Pre-Dialysis 85 BPM Standing Heart Rate Post-Dialysis 89 BPM Temperature Pre-Dialysis 97.5 degF Temperature Post -Dialysis 98 degF August 19, 2024 In-Center Hemodialysis Treatment 7475-69-36M99:24:05.000Z 8325-64-69Q82:01:35.000Z BP Sitting (Pre-Dialysis) 156/110 mmHg BP Sitting (Post-Dialysis) 130/87 mmHg Concurrent Access: falseAV Fistula Forearm (Left) Arterial BP Standing (Pre-Dialysis) 156/81 mmHg Sitting Heart Rate Post-Dialysis 86 BPM Sitting Heart Rate Pre-Dialysis 82 BPM Standing Heart Rate Pre-Dialysis 81 BPM Temperature Pre-Dialysis 98.2 degF August 17, 2024 In-Center Hemodialysis Treatment [id number]:48:02.000Z 3473-84-13P08:19:00.000Z BP Sitting (Pre-Dialysis) 180/90 mmHg BP Sitting (Post-Dialysis) 123/76 mmHg Concurrent Access: falseAV Fistula Forearm (Left) Arterial BP Standing (Pre-Dialysis) 171/87 mmHg BP Standing (P ost-Dialysis) 110/62 mmHg Sitting Heart Rate Pre-Dialysis 79 BPM Sitting Heart Rate Post-Dialysis 82 BPM Standing Heart Rate Pre-Dialysis 84 BPM Standing Heart Rate Post-Dialysis 87 BPM Temperature Pre-Dialysis 97.5 degF Temperature Post -Dialysis 98.3 degF August 15, 2024 In-Center Hemodialysis Treatment [id number]:00:52.000Z 9015-41-40G99:26:42.000Z BP Sitting (Pre-Dialysis) 140/77 mmHg BP Sitting (Post-Dialysis) 140/77 mmHg Concurrent Access: falseAV Fistula Forearm (Left) Arterial BP Standing (Pre-Dialysis) 167/90 mmHg Sitting Heart Rate Post-Dialysis 83 BPM Sitting Heart Rate Pre-Dialysis 83 BPM Temperatu re Post-Dialysis 98 degF Standing Heart Rate Pre-Dialysis 84 BPM Temperature Pre-Dialysis 97.3 degF August 12, 2024 In-Center Hemodialysis Treatment [id number]:16:21.000Z 9601-06-11O20:49:41.000Z BP Sitting (Pre-Dialysis) 167/82 mmHg BP Sitting (Post-Dialysis) 114/58 mmHg Concurrent Access: falseAV Fistula Forearm (Left) Arterial BP Standing (Pre-Dialysis) 158/78 mmHg Sitting Heart Rate Post-Dialysis 90 BPM Sitting Heart Rate Pre-Dialysis 80 BPM Temperatu re Post-Dialysis 98 degF Standing Heart Rate Pre-Dialysis 85 BPM Temperature Pre-Dialysis 98.2 degF August 10, 2024 In-Center Hemodialysis Treatment 4556-77-28Z99:37:00.000Z 5743-61-48L94:07:53.000Z BP Sitting (Pre-Dialysis) 150/87 mmHg BP Sitting (Post-Dialysis) 109/79 mmHg Concurrent Access: falseAV Fistula Forearm (Left) Arterial BP Standing (Pre-Dialysis) 154/85 mmHg BP Standing (P ost-Dialysis) 142/65 mmHg Sitting Heart Rate Pre-Dialysis 80 BPM Sitting Heart Rate Post-Dialysis 84 BPM Standing Heart Rate Pre-Dialysis 84 BPM Standing Heart Rate Post-Dialysis 96 BPM Temperature Pre-Dialysis 98.1 degF Temperature Post -Dialysis 98.1 degF August 07, 2024 In-Center Hemodialysis Treatment 6295-04-54I20:23:44.000Z 9668-37-20F77:54:31.000Z BP Sitting (Pre-Dialysis) 162/90 mmHg BP Sitting (Post-Dialysis) 117/62 mmHg Concurrent Access: falseAV Fistula Forearm (Left) Arterial BP Standing (Pre-Dialysis) 148/86 mmHg BP Standing (P ost-Dialysis) 104/73 mmHg Sitting Heart Rate Pre-Dialysis 82 BPM Sitting Heart Rate Post-Dialysis 95 BPM Standing Heart Rate Pre-Dialysis 91 BPM Standing Heart Rate Post-Dialysis 104 BPM Temperature Pre-Dialysis 98 degF Temperature Post -Dialysis 98.1 degF August 05, 2024 In-Center Hemodialysis Treatment 8766-25-14S87:25:10.000Z 4153-18-85O38:50:10.000Z BP Sitting (Pre-Dialysis) 164/90 mmHg BP Sitting (Post-Dialysis) 152/75 mmHg Concurrent Access: falseAV Fistula Forearm (Left) Arterial BP Standing (Pre-Dialysis) 143/84 mmHg Sitti ng Heart Rate Post-Dialysis 84 BPM Sitting Heart Rate Pre-Dialysis 86 BPM Temperatu re Post-Dialysis 98.3 degF Standing Heart Rate Pre-Dialysis 86 BPM Temperature Pre-Dialysis 97.5 degF August 03, 2024 In-Center Hemodialysis Treatment [id number]:13:03.000Z 1927-46-47P24:41:48.000Z BP Sitting (Pre-Dialysis) 155/105 mmHg BP Sitting (Post-Dialysis) 97/48 mmHg Concurrent Access: falseAV Fistula Forearm (Left) Arterial BP Standing (Pre-Dialysis) 161/84 mmHg BP Standing (P ost-Dialysis) 123/57 mmHg Sitting Heart Rate Pre-Dialysis 82 BPM Sitting Heart Rate Post-Dialysis 77 BPM Standing Heart Rate Pre-Dialysis 83 BPM Standing Heart Rate Post-Dialysis 87 BPM Temperature Pre-Dialysis 98.5 degF Temperature Post -Dialysis 98.1 degF July 31, 2024 In-Center Hemodialysis Treatment [id number]:28:28.000Z 7224-94-23S94:59:43.000Z BP Sitting (Pre-Dialysis) 161/83 mmHg BP Sitting (Post-Dialysis) 130/90 mmHg Concurrent Access: falseAV Fistula Forearm (Left) Arterial BP Standing (Pre-Dialysis) 149/79 mmHg Sitti ng Heart Rate Post-Dialysis 80 BPM Sitting Heart Rate Pre-Dialysis 84 BPM Temperatu re Post-Dialysis 97.2 degF Standing Heart Rate Pre-Dialysis 84 BPM Temperature Pre-Dialysis 97.4 degF July 29, 2024 In-Center Hemodialysis Treatment 8393-09-35W06:22:00.000Z 7154-41-65Q59:01:44.000Z BP Sitting (Pre-Dialysis) 171/94 mmHg BP Sitting (Post-Dialysis) 114/68 mmHg Concurrent Access: falseAV Fistula Forearm (Left) Arterial BP Standing (Pre-Dialysis) 170/93 mmHg BP Standing (P ost-Dialysis) 110/61 mmHg Sitting Heart Rate Pre-Dialysis 90 BPM Sitting Heart Rate Post-Dialysis 86 BPM Standing Heart Rate Pre-Dialysis 93 BPM Standing Heart Rate Post-Dialysis 101 BPM Temperature Pre-Dialysis 98 degF Temperature Post -Dialysis 97.5 degF July 27, 2024 In-Center Hemodialysis Treatment 6131-10-07I94:31:54.000Z 8057-74-30F50:02:19.000Z BP Sitting (Pre-Dialysis) 161/100 mmHg BP Sitting (Post-Dialysis) 117/74 mmHg Concurrent Access: falseAV Fistula Forearm (Left) Arterial BP Standing (Pre-Dialysis) 178/93 mmHg BP Standing (P ost-Dialysis) 110/73 mmHg Sitting Heart Rate Pre-Dialysis 88 BPM Sitting Heart Rate Post-Dialysis 86 BPM Standing Heart Rate Pre-Dialysis 89 BPM Standing Heart Rate Post-Dialysis 108 BPM Temperature Pre-Dialysis 98 degF Temperature Post -Dialysis 97.6 degF July 25, 2024 In-Center Hemodialysis Treatment [id number]:28:00.000Z 9922-84-82H41:02:30.000Z BP Sitting (Pre-Dialysis) 178/92 mmHg BP Sitting (Post-Dialysis) 138/87 mmHg Concurrent Access: falseAV Fistula Forearm (Left) Arterial BP Standing (Pre-Dialysis) 125/89 mmHg BP Standing (P ost-Dialysis) 131/76 mmHg Sitting Heart Rate Pre-Dialysis 83 BPM Sitting Heart Rate Post-Dialysis 87 BPM Standing Heart Rate Pre-Dialysis 90 BPM Standing Heart Rate Post-Dialysis 96 BPM Temperature Pre-Dialysis 98 degF Temperature Post -Dialysis 97.4 degF July 22, 2024 In-Center Hemodialysis Treatment [id number]:24:43.000Z 4093-48-36Z58:54:43.000Z BP Sitting (Pre-Dialysis) 171/85 mmHg BP Sitting (Post-Dialysis) 144/95 mmHg Concurrent Access: falseAV Fistula Forearm (Left) Arterial BP Standing (Pre-Dialysis) 168/91 mmHg Sitti ng Heart Rate Post-Dialysis 88 BPM Sitting Heart Rate Pre-Dialysis 82 BPM Temperatu re Post-Dialysis 97.6 degF Standing Heart Rate Pre-Dialysis 87 BPM Temperature Pre-Dialysis 98.1 degF July 20, 2024 In-Center Hemodialysis Treatment 1913-80-61Z70:29:40.000Z 6100-05-27P96:00:05.000Z BP Sitting (Pre-Dialysis) 190/101 mmHg BP Sitting (Post-Dialysis) 132/54 mmHg Concurrent Access: falseAV Fistula Forearm (Left) Arterial BP Standing (Pre-Dialysis) 173/91 mmHg BP Standing (P ost-Dialysis) 96/43 mmHg Sitting Heart Rate Pre-Dialysis 88 BPM Sitting Heart Rate Post-Dialysis 83 BPM Standing Heart Rate Pre-Dialysis 89 BPM Standing Heart Rate Post-Dialysis 99 BPM Temperature Pre-Dialysis 97.9 degF Temperature Post -Dialysis 97.5 degF July 18, 2024 In-Center Hemodialysis Treatment [id number]:23:00.000Z 2781-81-96T04:46:41.000Z BP Sitting (Pre-Dialysis) 138/89 mmHg BP Sitting (Post-Dialysis) 137/87 mmHg Concurrent Access: falseAV Fistula Forearm (Left) Arterial BP Standing (Pre-Dialysis) 172/90 mmHg Sitting Heart Rate Post-Dialysis 92 BPM Sitting Heart Rate Pre-Dialysis 84 BPM Temperatu re Post-Dialysis 98 degF Standing Heart Rate Pre-Dialysis 87 BPM Temperature Pre-Dialysis 97.3 degF July 15, 2024 In-Center Hemodialysis Treatment 1311-06-13O59:59:10.000Z 5836-53-04J88:41:40.000Z BP Sitting (Pre-Dialysis) 167/97 mmHg BP Sitting (Post-Dialysis) 132/82 mmHg Concurrent Access: falseAV Fistula Forearm (Left) Arterial BP Standing (Pre-Dialysis) 161/94 mmHg BP Standing (P ost-Dialysis) 133/65 mmHg Sitting Heart Rate Pre-Dialysis 87 BPM Sitting Heart Rate Post-Dialysis 86 BPM Standing Heart Rate Pre-Dialysis 90 BPM Standing Heart Rate Post-Dialysis 105 BPM Temperature Pre-Dialysis 97.8 degF July 13, 2024 In-Center Hemodialysis Treatment [id number]:38:00.000Z [id number]:08:00.000Z BP Sitting (Pre-Dialysis) 149/64 mmHg BP Sitting (Post-Dialysis) 144/84 mmHg Concurrent Access: falseAV Fistula Forearm (Left) Arterial BP Standing (Pre-Dialysis) 145/75 mmHg BP Standing (P ost-Dialysis) 113/65 mmHg Sitting Heart Rate Pre-Dialysis 88 BPM Sitting Heart Rate Post-Dialysis 83 BPM Standing Heart Rate Pre-Dialysis 89 BPM Standing Heart Rate Post-Dialysis 89 BPM Temperature Pre-Dialysis 97.3 degF Temperature Post -Dialysis 97.2 degF July 11, 2024 In-Center Hemodialysis Treatment [id number]:33:12.000Z [id number]:05:42.000Z BP Sitting (Pre-Dialysis) 162/82 mmHg BP Sitting (Post-Dialysis) 114/95 mmHg Concurrent Access: falseAV Fistula Forearm (Left) Arterial BP Standing (Pre-Dialysis) 179/106 mmHg BP Standing (P ost-Dialysis) 102/54 mmHg Sitting Heart Rate Pre-Dialysis 81 BPM Sitting Heart Rate Post-Dialysis 93 BPM Standing Heart Rate Pre-Dialysis 89 BPM Standing Heart Rate Post-Dialysis 94 BPM Temperature Pre-Dialysis 97.6 degF Temperature Post -Dialysis 97.7 degF July 08, 2024 In-Center Hemodialysis Treatment [id number]:31:18.000Z [id number]:01:18.000Z BP Sitting (Pre-Dialysis) 179/84 mmHg BP Sitting (Post-Dialysis) 132/88 mmHg Concurrent Access: falseAV Fistula Forearm (Left) Arterial BP Standing (Pre-Dialysis) 157/88 mmHg BP Standing (P ost-Dialysis) 127/66 mmHg Sitting Heart Rate Pre-Dialysis 81 BPM Sitting Heart Rate Post-Dialysis 86 BPM Standing Heart Rate Pre-Dialysis 84 BPM Standing Heart Rate Post-Dialysis 106 BPM Temperature Pre-Dialysis 98 degF Temperature Post -Dialysis 97.1 degF July 05, 2024 In-Center Hemodialysis Treatment [id number]:14:00.000Z [id number]:46:02.000Z BP Sitting (Pre-Dialysis) 159/82 mmHg BP Sitting (Post-Dialysis) 111/78 mmHg Concurrent Access: falseAV Fistula Forearm (Left) Arterial BP Standing (Pre-Dialysis) 155/87 mmHg BP Standing (P ost-Dialysis) 125/71 mmHg Sitting Heart Rate Pre-Dialysis 91 BPM Sitting Heart Rate Post-Dialysis 82 BPM Standing Heart Rate Pre-Dialysis 93 BPM Standing Heart Rate Post-Dialysis 91 BPM Temperature Pre-Dialysis 97.6 degF Temperature Post -Dialysis 98 degF July 03, 2024 In-Center Hemodialysis Treatment [id number]:05:00.000Z 7273-36-99B99:35:54.000Z BP Sitting (Pre-Dialysis) 166/88 mmHg BP Sitting (Post-Dialysis) 105/58 mmHg Concurrent Access: falseAV Fistula Forearm (Left) Arterial BP Standing (Pre-Dialysis) 162/94 mmHg BP Standing (P ost-Dialysis) 102/62 mmHg Sitting Heart Rate Pre-Dialysis 84 BPM Sitting Heart Rate Post-Dialysis 92 BPM Standing Heart Rate Pre-Dialysis 87 BPM Standing Heart Rate Post-Dialysis 92 BPM Temperature Pre-Dialysis 97.6 degF Temperature Post -Dialysis 97.9 degF July 01, 2024 In-Center Hemodialysis Treatment 0025-69-81S56:43:54.000Z 4542-36-15T51:14:19.000Z BP Sitting (Pre-Dialysis) 157/88 mmHg BP Sitting (Post-Dialysis) 133/87 mmHg Concurrent Access: falseAV Fistula Forearm (Left) Arterial BP Standing (Pre-Dialysis) 153/83 mmHg BP Standing (P ost-Dialysis) 123/87 mmHg Sitting Heart Rate Pre-Dialysis 88 BPM Sitting Heart Rate Post-Dialysis 79 BPM Standing Heart Rate Pre-Dialysis 90 BPM Standing Heart Rate Post-Dialysis 79 BPM Temperature Pre-Dialysis 98.1 degF Temperature Post -Dialysis 98.2 degF June 29, 2024 In-Center Hemodialysis Treatment [id number]:28:40.000Z 5953-43-14D92:58:15.000Z BP Sitting (Pre-Dialysis) 174/84 mmHg BP Sitting (Post-Dialysis) 124/94 mmHg Concurrent Access: falseAV Fistula Forearm (Left) Arterial BP Standing (Pre-Dialysis) 135/95 mmHg BP Standing (P ost-Dialysis) 107/64 mmHg Sitting Heart Rate Pre-Dialysis 84 BPM Sitting Heart Rate Post-Dialysis 84 BPM Standing Heart Rate Pre-Dialysis 88 BPM Standing Heart Rate Post-Dialysis 89 BPM Temperature Pre-Dialysis 97.9 degF Temperature Post -Dialysis 97.4 degF June 27, 2024 In-Center Hemodialysis Treatment 4530-46-84I33:39:55.000Z 1431-52-14M89:13:15.000Z BP Sitting (Pre-Dialysis) 186/95 mmHg BP Sitting (Post-Dialysis) 140/72 mmHg Concurrent Access: falseAV Fistula Forearm (Left) Arterial BP Standing (Pre-Dialysis) 178/80 mmHg BP Standing (P ost-Dialysis) 119/72 mmHg Sitting Heart Rate Pre-Dialysis 92 BPM Sitting Heart Rate Post-Dialysis 90 BPM Standing Heart Rate Pre-Dialysis 103 BPM Standing Heart Rate Post-Dialysis 91 BPM Temperature Pre-Dialysis 98.1 degF Temperature Post -Dialysis 97.7 degF June 24, 2024 In-Center Hemodialysis Treatment 3757-71-45Q70:38:00.000Z 6759-61-78O60:10:05.000Z BP Sitting (Pre-Dialysis) 192/86 mmHg BP Sitting (Post-Dialysis) 150/81 mmHg Concurrent Access: falseAV Fistula Forearm (Left) Arterial BP Standing (Pre-Dialysis) 160/74 mmHg BP Standing (P ost-Dialysis) 148/119 mmHg Sitting Heart Rate Pre-Dialysis 84 BPM Sitting Heart Rate Post-Dialysis 81 BPM Standing Heart Rate Pre-Dialysis 86 BPM Standing Heart Rate Post-Dialysis 104 BPM Temperature Pre-Dialysis 97.3 degF Temperature Post -Dialysis 97.3 degF June 22, 2024 In-Center Hemodialysis Treatment 0029-11-89F05:31:30.000Z 9761-88-79P68:06:55.000Z BP Sitting (Pre-Dialysis) 171/88 mmHg BP Sitting (Post-Dialysis) 141/68 mmHg Concurrent Access: falseAV Fistula Forearm (Left) Arterial BP Standing (Pre-Dialysis) 156/80 mmHg BP Standing (P ost-Dialysis) 110/58 mmHg Sitting Heart Rate Pre-Dialysis 84 BPM Sitting Heart Rate Post-Dialysis 81 BPM Standing Heart Rate Pre-Dialysis 87 BPM Standing Heart Rate Post-Dialysis 87 BPM Temperature Pre-Dialysis 97.6 degF Temperature Post -Dialysis 97.2 degF June 20, 2024 In-Center Hemodialysis Treatment 7174-12-33P56:32:00.000Z 7980-03-19Y65:13:53.000Z BP Sitting (Pre-Dialysis) 159/92 mmHg BP Sitting (Post-Dialysis) 142/86 mmHg Concurrent Access: falseAV Fistula Forearm (Left) Arterial BP Standing (Pre-Dialysis) 138/78 mmHg BP Standing (P ost-Dialysis) 109/77 mmHg Sitting Heart Rate Pre-Dialysis 85 BPM Sitting Heart Rate Post-Dialysis 82 BPM Standing Heart Rate Pre-Dialysis 87 BPM Standing Heart Rate Post-Dialysis 88 BPM Temperature Pre-Dialysis 98 degF Temperature Post -Dialysis 98 degF June 17, 2024 In-Center Hemodialysis Treatment [id number]:44:00.000Z 5270-69-22O19:22:45.000Z BP Sitting (Pre-Dialysis) 179/89 mmHg BP Sitting (Post-Dialysis) 115/60 mmHg Concurrent Access: falseAV Fistula Forearm (Left) Arterial BP Standing (Pre-Dialysis) 155/80 mmHg BP Standing (P ost-Dialysis) 118/59 mmHg Sitting Heart Rate Pre-Dialysis 99 BPM Sitting Heart Rate Post-Dialysis 106 BPM Standing Heart Rate Pre-Dialysis 102 BPM Standing Heart Rate Post-Dialysis 104 BPM Temperature Pre-Dialysis 98.1 degF Temperature Post -Dialysis 97.2 degF June 15, 2024 In-Center Hemodialysis Treatment [id number]:32:53.000Z 4325-23-20W50:02:53.000Z BP Sitting (Pre-Dialysis) 170/87 mmHg BP Sitting (Post-Dialysis) 142/73 mmHg Concurrent Access: falseAV Fistula Forearm (Left) Arterial BP Standing (Pre-Dialysis) 118/69 mmHg BP Standing (P ost-Dialysis) 112/66 mmHg Sitting Heart Rate Pre-Dialysis 86 BPM Sitting Heart Rate Post-Dialysis 86 BPM Standing Heart Rate Pre-Dialysis 90 BPM Standing Heart Rate Post-Dialysis 87 BPM Temperature Pre-Dialysis 97.8 degF Temperature Post -Dialysis 97.3 degF June 14, 2024 Additional Day Of Dialysis Treatment 9521-69-18R68:34:00.000Z 7998-31-36R73:04:55.000Z BP Sitting (Pre-Dialysis) 175/95 mmHg BP Sitting (Post-Dialysis) 124/93 mmHg Concurrent Access: falseAV Fistula Forearm (Left) Arterial BP Standing (Pre-Dialysis) 161/94 mmHg Sitting Heart Rate Post-Dialysis 91 BPM Sitting Heart Rate Pre-Dialysis 77 BPM Temperatu re Post-Dialysis 98 degF Standing Heart Rate Pre-Dialysis 80 BPM Temperature Pre-Dialysis 97.9 degF June 13, 2024 In-Center Hemodialysis Treatment 8240-37-48O43:33:00.000Z 6786-76-61J46:21:45.000Z BP Sitting (Pre-Dialysis) 174/91 mmHg BP Sitting (Post-Dialysis) 145/81 mmHg Concurrent Access: falseAV Fistula Forearm (Left) Arterial BP Standing (Pre-Dialysis) 153/76 mmHg BP Standing (P ost-Dialysis) 159/85 mmHg Sitting Heart Rate Pre-Dialysis 82 BPM Sitting Heart Rate Post-Dialysis 80 BPM Standing Heart Rate Pre-Dialysis 86 BPM Standing Heart Rate Post-Dialysis 82 BPM Temperature Pre-Dialysis 98 degF Temperature Post -Dialysis 98 degF June 10, 2024 In-Center Hemodialysis Treatment [id number]:39:00.000Z 7927-34-16B64:11:41.000Z BP Sitting (Pre-Dialysis) 171/84 mmHg BP Sitting (Post-Dialysis) 144/98 mmHg Concurrent Access: falseAV Fistula Forearm (Left) Arterial BP Standing (Pre-Dialysis) 160/90 mmHg Sitting Heart Rate Post-Dialysis 79 BPM Sitting Heart Rate Pre-Dialysis 79 BPM Standing Heart Rate Pre-Dialysis 80 BPM Temperature Pre-Dialysis 97.4 degF June 08, 2024 In-Center Hemodialysis Treatment 5107-68-12N81:36:00.000Z 4335-16-82V78:09:06.000Z BP Sitting (Pre-Dialysis) 190/88 mmHg BP Sitting (Post-Dialysis) 143/97 mmHg Concurrent Access: falseAV Fistula Forearm (Left) Arterial BP Standing (Pre-Dialysis) 180/95 mmHg BP Standing (P ost-Dialysis) 148/74 mmHg Sitting Heart Rate Pre-Dialysis 87 BPM Sitting Heart Rate Post-Dialysis 76 BPM Standing Heart Rate Pre-Dialysis 92 BPM Standing Heart Rate Post-Dialysis 81 BPM Temperature Pre-Dialysis 98.6 degF Temperature Post -Dialysis 97.8 degF June 06, 2024 In-Center Hemodialysis Treatment 2921-33-10C14:33:00.000Z 8921-82-75Q78:05:37.000Z BP Sitting (Pre-Dialysis) 183/96 mmHg BP Sitting (Post-Dialysis) 132/83 mmHg Concurrent Access: falseAV Fistula Forearm (Left) Arterial BP Standing (Pre-Dialysis) 163/87 mmHg BP Standing (P ost-Dialysis) 143/76 mmHg Sitting Heart Rate Pre-Dialysis 86 BPM Sitting Heart Rate Post-Dialysis 80 BPM Standing Heart Rate Pre-Dialysis 87 BPM Standing Heart Rate Post-Dialysis 87 BPM Temperature Pre-Dialysis 97.8 degF June 03, 2024 In-Center Hemodialysis Treatment 7699-66-95T01:28:58.000Z 1727-78-44H76:59:48.000Z BP Sitting (Pre-Dialysis) 138/78 mmHg BP Sitting (Post-Dialysis) 126/87 mmHg Concurrent Access: falseAV Fistula Forearm (Left) Arterial BP Standing (Pre-Dialysis) 145/73 mmHg BP Standing (P ost-Dialysis) 127/69 mmHg Sitting Heart Rate Pre-Dialysis 79 BPM Sitting Heart Rate Post-Dialysis 84 BPM Standing Heart Rate Pre-Dialysis 85 BPM Standing Heart Rate Post-Dialysis 104 BPM Temperature Pre-Dialysis 97.9 degF Temperature Post -Dialysis 97.2 degF June 01, 2024 In-Center Hemodialysis Treatment 9747-17-83Z99:47:34.000Z 1815-31-05P84:18:24.000Z BP Sitting (Pre-Dialysis) 141/71 mmHg BP Sitting (Post-Dialysis) 118/68 mmHg Concurrent Access: falseAV Fistula Forearm (Left) Arterial BP Standing (Pre-Dialysis) 142/74 mmHg BP Standing (P ost-Dialysis) 134/67 mmHg Sitting Heart Rate Pre-Dialysis 86 BPM Sitting Heart Rate Post-Dialysis 79 BPM Standing Heart Rate Pre-Dialysis 87 BPM Standing Heart Rate Post-Dialysis 83 BPM Temperature Pre-Dialysis 98 degF Temperature Post -Dialysis 97.4 degF May 30, 2024 In-Center Hemodialysis Treatment [id number]:20:41.000Z 9319-87-38V78:50:16.000Z BP Sitting (Pre-Dialysis) 150/55 mmHg BP Sitting (Post-Dialysis) 107/62 mmHg Concurrent Access: falseAV Fistula Forearm (Left) Arterial BP Standing (Pre-Dialysis) 146/77 mmHg BP Standing (P ost-Dialysis) 126/83 mmHg Sitting Heart Rate Pre-Dialysis 82 BPM Sitting Heart Rate Post-Dialysis 81 BPM Standing Heart Rate Pre-Dialysis 86 BPM Standing Heart Rate Post-Dialysis 80 BPM Temperature Pre-Dialysis 98.1 degF Temperature Post -Dialysis 98 degF May 27, 2024 In-Center Hemodialysis Treatment 7307-22-07M72:03:00.000Z 6725-36-62V54:36:12.000Z BP Sitting (Pre-Dialysis) 176/90 mmHg BP Sitting (Post-Dialysis) 114/70 mmHg Concurrent Access: falseAV Fistula Forearm (Left) Arterial BP Standing (Pre-Dialysis) 165/84 mmHg BP Standing (P ost-Dialysis) 104/55 mmHg Sitting Heart Rate Pre-Dialysis 84 BPM Sitting Heart Rate Post-Dialysis 82 BPM Standing Heart Rate Pre-Dialysis 86 BPM Standing Heart Rate Post-Dialysis 89 BPM Temperature Pre-Dialysis 97.3 degF Temperature Post -Dialysis 97.9 degF May 25, 2024 In-Center Hemodialysis Treatment 1918-14-35Z08:12:53.000Z 8166-38-58E44:45:48.000Z BP Sitting (Pre-Dialysis) 178/95 mmHg BP Sitting (Post-Dialysis) 146/80 mmHg Concurrent Access: falseAV Fistula Forearm (Left) Arterial BP Standing (Pre-Dialysis) 150/99 mmHg BP Standing (P ost-Dialysis) 115/60 mmHg Sitting Heart Rate Pre-Dialysis 83 BPM Sitting Heart Rate Post-Dialysis 84 BPM Standing Heart Rate Pre-Dialysis 83 BPM Standing Heart Rate Post-Dialysis 95 BPM Temperature Pre-Dialysis 97.7 degF Temperature Post -Dialysis 97.6 degF May 23, 2024 In-Center Hemodialysis Treatment 8712-92-45P78:31:39.000Z 8521-27-41N74:19:09.000Z BP Sitting (Pre-Dialysis) 179/92 mmHg BP Sitting (Post-Dialysis) 145/97 mmHg Concurrent Access: falseAV Fistula Forearm (Left) Arterial BP Standing (Pre-Dialysis) 181/92 mmHg BP Standing (P ost-Dialysis) 116/61 mmHg Sitting Heart Rate Pre-Dialysis 84 BPM Sitting Heart Rate Post-Dialysis 82 BPM Standing Heart Rate Pre-Dialysis 86 BPM Standing Heart Rate Post-Dialysis 91 BPM Temperature Pre-Dialysis 97.6 degF May 20, 2024 In-Center Hemodialysis Treatment 6911-32-35R28:46:05.000Z 5733-15-53B43:17:00.000Z BP Sitting (Pre-Dialysis) 143/75 mmHg BP Sitting (Post-Dialysis) 147/94 mmHg Concurrent Access: falseAV Fistula Forearm (Left) Arterial BP Standing (Pre-Dialysis) 148/80 mmHg BP Standing (P ost-Dialysis) 128/68 mmHg Sitting Heart Rate Pre-Dialysis 83 BPM Sitting Heart Rate Post-Dialysis 81 BPM Standing Heart Rate Pre-Dialysis 86 BPM Standing Heart Rate Post-Dialysis 87 BPM Temperature Pre-Dialysis 97.6 degF Temperature Post -Dialysis 98.1 degF May 18, 2024 In-Center Hemodialysis Treatment 2926-56-22G12:25:31.000Z 0292-32-57I47:00:56.000Z BP Sitting (Pre-Dialysis) 156/76 mmHg BP Sitting (Post-Dialysis) 122/81 mmHg Concurrent Access: falseAV Fistula Forearm (Left) Arterial BP Standing (Pre-Dialysis) 142/77 mmHg Sitting Heart Rate Post-Dialysis 82 BPM Sitting Heart Rate Pre-Dialysis 83 BPM Temperatu re Post-Dialysis 98 degF Standing Heart Rate Pre-Dialysis 85 BPM Temperature Pre-Dialysis 97.9 degF May 16, 2024 In-Center Hemodialysis Treatment 4615-58-48U33:59:37.000Z 5654-31-85F05:31:17.000Z BP Sitting (Pre-Dialysis) 169/88 mmHg BP Sitting (Post-Dialysis) 118/70 mmHg Concurrent Access: falseAV Fistula Forearm (Left) Arterial BP Standing (Pre-Dialysis) 161/80 mmHg BP Standing (P ost-Dialysis) 123/72 mmHg Sitting Heart Rate Pre-Dialysis 90 BPM Sitting Heart Rate Post-Dialysis 83 BPM Standing Heart Rate Pre-Dialysis 90 BPM Standing Heart Rate Post-Dialysis 96 BPM Temperature Pre-Dialysis 98.3 degF Temperature Post -Dialysis 98 degF May 13, 2024 In-Center Hemodialysis Treatment 8895-96-72P48:39:00.000Z 0699-79-66M65:31:14.000Z BP Sitting (Pre-Dialysis) 139/73 mmHg BP Sitting (Post-Dialysis) 115/71 mmHg Concurrent Access: falseAV Fistula Forearm (Left) Arterial BP Standing (Pre-Dialysis) 115/60 mmHg Sitting Heart Rate Post-Dialysis 78 BPM Sitting Heart Rate Pre-Dialysis 81 BPM Temperatu re Post-Dialysis 98 degF Standing Heart Rate Pre-Dialysis 86 BPM Temperature Pre-Dialysis 97.6 degF May 11, 2024 In-Center Hemodialysis Treatment 8187-30-40C22:41:01.000Z 3804-84-32X31:13:31.000Z BP Sitting (Pre-Dialysis) 110/74 mmHg BP Sitting (Post-Dialysis) 93/55 mmHg Concurrent Access: falseAV Fistula Forearm (Left) Arterial BP Standing (Pre-Dialysis) 141/83 mmHg BP Standing (P ost-Dialysis) 103/55 mmHg Sitting Heart Rate Pre-Dialysis 78 BPM Sitting Heart Rate Post-Dialysis 77 BPM Standing Heart Rate Pre-Dialysis 87 BPM Standing Heart Rate Post-Dialysis 79 BPM Temperature Pre-Dialysis 98.1 degF Temperature Post -Dialysis 97.9 degF May 09, 2024 In-Center Hemodialysis Treatment 3782-68-66G30:34:00.000Z 7331-03-28R44:23:52.000Z BP Sitting (Pre-Dialysis) 177/98 mmHg BP Sitting (Post-Dialysis) 130/86 mmHg Concurrent Access: falseAV Fistula Forearm (Left) ArterialCentral Venous Catheter (CVC) Chest (Right) Venous BP Standing (Pre-Dialysis) 171/88 mmHg BP Standing (P ost-Dialysis) 104/66 mmHg Sitting Heart Rate Pre-Dialysis 85 BPM Sitting Heart Rate Post-Dialysis 80 BPM Standing Heart Rate Pre-Dialysis 92 BPM Standing Heart Rate Post-Dialysis 86 BPM Temperature Pre-Dialysis 97.7 degF Temperature Post -Dialysis 97.8 degF May 06, 2024 In-Center Hemodialysis Treatment 2701-47-02N11:09:05.000Z 2012-51-94T20:50:20.000Z BP Sitting (Pre-Dialysis) 159/92 mmHg BP Sitting (Post-Dialysis) 154/88 mmHg Concurrent Access: falseAV Fistula Forearm (Left) ArterialCentral Venous Catheter (CVC) Chest (Right) Venous BP Standing (Pre-Dialysis) 151/87 mmHg BP Standing (P ost-Dialysis) 129/56 mmHg Sitting Heart Rate Pre-Dialysis 82 BPM Sitting Heart Rate Post-Dialysis 80 BPM Standing Heart Rate Pre-Dialysis 85 BPM Standing Heart Rate Post-Dialysis 76 BPM Temperature Pre-Dialysis 97.7 degF Temperature Post -Dialysis 98.3 degF May 04, 2024 In-Center Hemodialysis Treatment 5308-83-34V38:28:00.000Z 1967-30-84E78:06:33.000Z BP Sitting (Pre-Dialysis) 169/91 mmHg BP Sitting (Post-Dialysis) 128/79 mmHg Concurrent Access: falseAV Fistula Forearm (Left) ArterialCentral Venous Catheter (CVC) Chest (Right) Venous BP Standing (Pre-Dialysis) 163/61 mmHg BP Standing (P ost-Dialysis) 115/80 mmHg Sitting Heart Rate Pre-Dialysis 85 BPM Sitting Heart Rate Post-Dialysis 66 BPM Standing Heart Rate Pre-Dialysis 87 BPM Standing Heart Rate Post-Dialysis 78 BPM Temperature Pre-Dialysis 97.9 degF Temperature Post -Dialysis 97.6 degF May 02, 2024 In-Center Hemodialysis Treatment 9176-80-22U99:11:18.000Z 7988-43-33U92:43:23.000Z BP Sitting (Pre-Dialysis) 163/92 mmHg BP Sitting (Post-Dialysis) 127/82 mmHg Concurrent Access: falseAV Fistula Forearm (Left) ArterialCentral Venous Catheter (CVC) Chest (Right) Venous BP Standing (Pre-Dialysis) 154/93 mmHg Sitting Heart Rate Post-Dialysis 81 BPM Sitting Heart Rate Pre-Dialysis 82 BPM Temperatu re Post-Dialysis 98 degF Standing Heart Rate Pre-Dialysis 86 BPM Temperature Pre-Dialysis 97.7 degF April 29, 2024 In-Center Hemodialysis Treatment 6829-23-02P46:34:02.000Z 0116-57-64H05:03:37.000Z BP Sitting (Pre-Dialysis) 160/75 mmHg BP Sitting (Post-Dialysis) 151/85 mmHg Concurrent Access: falseAV Fistula Forearm (Left) ArterialCentral Venous Catheter (CVC) Chest (Right) Venous BP Standing (Pre-Dialysis) 161/87 mmHg BP Standing (P ost-Dialysis) 143/77 mmHg Sitting Heart Rate Pre-Dialysis 84 BPM Sitting Heart Rate Post-Dialysis 82 BPM Standing Heart Rate Pre-Dialysis 85 BPM Standing Heart Rate Post-Dialysis 86 BPM Temperature Pre-Dialysis 97.2 degF Temperature Post -Dialysis 97.5 degF April 27, 2024 In-Center Hemodialysis Treatment 5235-57-45M97:25:28.000Z 8970-08-46S42:09:13.000Z BP Sitting (Pre-Dialysis) 171/92 mmHg BP Sitting (Post-Dialysis) 139/90 mmHg Concurrent Access: falseAV Fistula Forearm (Left) ArterialCentral Venous Catheter (CVC) Chest (Right) Venous BP Standing (Pre-Dialysis) 158/79 mmHg Sitti ng Heart Rate Post-Dialysis 78 BPM Sitting Heart Rate Pre-Dialysis 83 BPM Temperatu re Post-Dialysis 97.3 degF Standing Heart Rate Pre-Dialysis 90 BPM Temperature Pre-Dialysis 98.3 degF April 25, 2024 In-Center Hemodialysis Treatment [id number]:53:44.000Z 3228-15-64V39:33:44.000Z BP Sitting (Pre-Dialysis) 153/80 mmHg BP Sitting (Post-Dialysis) 123/80 mmHg Concurrent Access: falseAV Fistula Forearm (Left) ArterialCentral Venous Catheter (CVC) Chest (Right) Venous BP Standing (Pre-Dialysis) 157/89 mmHg BP Standing (P ost-Dialysis) 119/70 mmHg Sitting Heart Rate Pre-Dialysis 81 BPM Sitting Heart Rate Post-Dialysis 79 BPM Standing Heart Rate Pre-Dialysis 81 BPM Standing Heart Rate Post-Dialysis 84 BPM Temperature Pre-Dialysis 97.9 degF Temperature Post -Dialysis 97.5 degF April 22, 2024 In-Center Hemodialysis Treatment 3034-20-18H63:26:47.000Z 4388-89-84H09:53:27.000Z BP Sitting (Pre-Dialysis) 133/86 mmHg BP Sitting (Post-Dialysis) 109/53 mmHg Concurrent Access: trueAV Fistula Forearm (Left) ArterialCentral Venous Catheter (CVC) Chest (Right) Venous BP Standing (Pre-Dialysis) 138/68 mmHg BP Standing (P ost-Dialysis) 108/54 mmHg Sitting Heart Rate Pre-Dialysis 99 BPM Sitting Heart Rate Post-Dialysis 92 BPM Standing Heart Rate Pre-Dialysis 100 BPM Standing Heart Rate Post-Dialysis 92 BPM Temperature Pre-Dialysis 98.2 degF Temperature Post -Dialysis 97.7 degF April 20, 2024 In-Center Hemodialysis Treatment 1741-48-39B72:31:00.000Z 4750-22-67T21:11:51.000Z BP Sitting (Pre-Dialysis) 163/93 mmHg BP Sitting (Post-Dialysis) 121/79 mmHg Concurrent Access: trueAV Fistula Forearm (Left) ArterialCentral Venous Catheter (CVC) Chest (Right) Venous BP Standing (Pre-Dialysis) 166/87 mmHg BP Standing (P ost-Dialysis) 125/69 mmHg Sitting Heart Rate Pre-Dialysis 82 BPM Sitting Heart Rate Post-Dialysis 83 BPM Standing Heart Rate Pre-Dialysis 86 BPM Standing Heart Rate Post-Dialysis 90 BPM Temperature Pre-Dialysis 97.9 degF Temperature Post -Dialysis 97.4 degF April 18, 2024 In-Center Hemodialysis Treatment 5711-62-49I59:04:47.000Z 9452-98-49P59:37:17.000Z BP Sitting (Pre-Dialysis) 170/92 mmHg BP Sitting (Post-Dialysis) 125/79 mmHg Concurrent Access: trueAV Fistula Forearm (Left) ArterialCentral Venous Catheter (CVC) Chest (Right) Venous BP Standing (Pre-Dialysis) 167/98 mmHg Sitti ng Heart Rate Post-Dialysis 77 BPM Sitting Heart Rate Pre-Dialysis 82 BPM Temperatu re Post-Dialysis 97.7 degF Standing Heart Rate Pre-Dialysis 82 BPM Temperature Pre-Dialysis 97.7 degF April 13, 2024 In-Center Hemodialysis Treatment 0455-31-77K80:44:00.000Z 6676-17-73R47:21:20.000Z BP Sitting (Pre-Dialysis) 176/92 mmHg BP Sitting (Post-Dialysis) 154/86 mmHg Concurrent Access: trueAV Fistula Forearm (Left) ArterialCentral Venous Catheter (CVC) Chest (Right) Venous BP Standing (Pre-Dialysis) 166/97 mmHg Sitti ng Heart Rate Post-Dialysis 88 BPM Sitting Heart Rate Pre-Dialysis 86 BPM Temperatu re Post-Dialysis 97.4 degF Standing Heart Rate Pre-Dialysis 89 BPM Temperature Pre-Dialysis 97.7 degF April 11, 2024 In-Center Hemodialysis Treatment 1127-55-99Z69:56:00.000Z 4743-09-72G87:29:17.000Z BP Sitting (Pre-Dialysis) 171/95 mmHg BP Sitting (Post-Dialysis) 124/67 mmHg Concurrent Access: trueAV Fistula Forearm (Left) ArterialCentral Venous Catheter (CVC) Chest (Right) Venous BP Standing (Pre-Dialysis) 168/92 mmHg BP Standing (P ost-Dialysis) 127/80 mmHg Sitting Heart Rate Pre-Dialysis 83 BPM Sitting Heart Rate Post-Dialysis 82 BPM Standing Heart Rate Pre-Dialysis 82 BPM Standing Heart Rate Post-Dialysis 86 BPM Temperature Pre-Dialysis 97.8 degF Temperature Post -Dialysis 97.6 degF April 08, 2024 In-Center Hemodialysis Treatment 5913-40-27M59:02:09.000Z 8470-82-02S07:39:14.000Z BP Sitting (Pre-Dialysis) 177/100 mmHg BP Sitting (Post-Dialysis) 132/81 mmHg Concurrent Access: trueAV Fistula Forearm (Left) ArterialCentral Venous Catheter (CVC) Chest (Right) Venous BP Standing (Pre-Dialysis) 192/111 mmHg BP Standing (P ost-Dialysis) 114/56 mmHg Sitting Heart Rate Pre-Dialysis 74 BPM Sitting Heart Rate Post-Dialysis 80 BPM Standing Heart Rate Pre-Dialysis 78 BPM Standing Heart Rate Post-Dialysis 86 BPM Temperature Pre-Dialysis 98.1 degF Temperature Post -Dialysis 97.5 degF April 06, 2024 In-Center Hemodialysis Treatment 6776-18-20I13:08:00.000Z 4068-26-77Q90:11:45.000Z BP Sitting (Pre-Dialysis) 165/113 mmHg BP Sitting (Post-Dialysis) 156/91 mmHg Concurrent Access: trueAV Fistula Forearm (Left) ArterialCentral Venous Catheter (CVC) Chest (Right) Venous BP Standing (Pre-Dialysis) 146/89 mmHg Sitti ng Heart Rate Post-Dialysis 79 BPM Sitting Heart Rate Pre-Dialysis 94 BPM Temperatu re Post-Dialysis 97.4 degF Standing Heart Rate Pre-Dialysis 93 BPM Temperature Pre-Dialysis 97.6 degF April 04, 2024 In-Center Hemodialysis Treatment [id number]:14:00.000Z 2437-99-91C04:46:54.000Z BP Sitting (Pre-Dialysis) 164/88 mmHg BP Sitting (Post-Dialysis) 138/85 mmHg Concurrent Access: trueAV Fistula Forearm (Left) ArterialCentral Venous Catheter (CVC) Chest (Right) Venous BP Standing (Pre-Dialysis) 164/93 mmHg Sitti ng Heart Rate Post-Dialysis 88 BPM Sitting Heart Rate Pre-Dialysis 83 BPM Temperatu re Post-Dialysis 97.9 degF Standing Heart Rate Pre-Dialysis 85 BPM Temperature Pre-Dialysis 97.9 degF April 01, 2024 In-Center Hemodialysis Treatment [id number]:21:24.000Z 5238-03-21S72:55:59.000Z BP Sitting (Pre-Dialysis) 172/97 mmHg BP Sitting (Post-Dialysis) 113/60 mmHg Concurrent Access: trueAV Fistula Forearm (Left) ArterialCentral Venous Catheter (CVC) Chest (Right) Venous BP Standing (Pre-Dialysis) 173/71 mmHg BP Standing (P ost-Dialysis) 127/81 mmHg Sitting Heart Rate Pre-Dialysis 84 BPM Sitting Heart Rate Post-Dialysis 82 BPM Standing Heart Rate Pre-Dialysis 83 BPM Standing Heart Rate Post-Dialysis 83 BPM Temperature Pre-Dialysis 97.6 degF Temperature Post -Dialysis 98.2 degF March 30, 2024 [facility] Hemodialysis Treatment [id number]:11:08.000Z [id number]:08:13.000Z BP Sitting (Pre-Dialysis) 177/89 mmHg BP Sitting (Post-Dialysis) 118/77 mmHg Concurrent Access: trueAV Fistula Forearm (Left) ArterialCentral Venous Catheter (CVC) Chest (Right) Venous BP Standing (Pre-Dialysis) 129/67 mmHg BP Standing (P ost-Dialysis) 124/53 mmHg Sitting Heart Rate Pre-Dialysis 81 BPM Sitting Heart Rate Post-Dialysis 85 BPM Standing Heart Rate Pre-Dialysis 84 BPM Standing Heart Rate Post-Dialysis 93 BPM Temperature Pre-Dialysis 97.2 degF Temperature Post -Dialysis 97.8 degF March 28, 2024 In-Center Hemodialysis Treatment 3574-07-44S27:20:00.000Z 5161-31-09Y70:01:46.000Z BP Sitting (Pre-Dialysis) 175/90 mmHg BP Sitting (Post-Dialysis) 148/69 mmHg Concurrent Access: trueAV Fistula Forearm (Left) ArterialCentral Venous Catheter (CVC) Chest (Right) Venous BP Standing (Pre-Dialysis) 178/89 mmHg BP Standing (P ost-Dialysis) 123/66 mmHg Sitting Heart Rate Pre-Dialysis 85 BPM Sitting Heart Rate Post-Dialysis 87 BPM Standing Heart Rate Pre-Dialysis 88 BPM Standing Heart Rate Post-Dialysis 93 BPM Temperature Pre-Dialysis 97.9 degF Temperature Post -Dialysis 98 degF March 25, 2024 In-Center Hemodialysis Treatment [id number]:19:39.000Z 6615-31-42O87:30:54.000Z BP Sitting (Pre-Dialysis) 146/85 mmHg BP Sitting (Post-Dialysis) 124/73 mmHg Concurrent Access: trueAV Fistula Forearm (Left) ArterialCentral Venous Catheter (CVC) Chest (Right) Venous BP Standing (Pre-Dialysis) 167/91 mmHg BP Standing (P ost-Dialysis) 119/70 mmHg Sitting Heart Rate Pre-Dialysis 81 BPM Sitting Heart Rate Post-Dialysis 79 BPM Standing Heart Rate Pre-Dialysis 84 BPM Standing Heart Rate Post-Dialysis 84 BPM Temperature Pre-Dialysis 97.9 degF Temperature Post -Dialysis 98.2 degF March 23, 2024 In-Center Hemodialysis Treatment [id number]:53:00.000Z [id number]:30:49.000Z BP Sitting (Pre-Dialysis) 197/106 mmHg BP Sitting (Post-Dialysis) 131/79 mmHg Concurrent Access: trueAV Fistula Forearm (Left) ArterialCentral Venous Catheter (CVC) Chest (Right) Venous BP Standing (Pre-Dialysis) 180/109 mmHg BP Standing (P ost-Dialysis) 106/74 mmHg Sitting Heart Rate Pre-Dialysis 81 BPM Sitting Heart Rate Post-Dialysis 81 BPM Standing Heart Rate Pre-Dialysis 84 BPM Standing Heart Rate Post-Dialysis 87 BPM Temperature Pre-Dialysis 97.3 degF Temperature Post -Dialysis 97 degF March 21, 2024 In-Center Hemodialysis Treatment [id number]:27:00.000Z [id number]:03:08.000Z BP Sitting (Pre-Dialysis) 187/109 mmHg BP Sitting (Post-Dialysis) 134/82 mmHg Concurrent Access: trueAV Fistula Forearm (Left) ArterialCentral Venous Catheter (CVC) Chest (Right) Venous BP Standing (Pre-Dialysis) 200/96 mmHg BP Standing (P ost-Dialysis) 142/78 mmHg Sitting Heart Rate Pre-Dialysis 87 BPM Sitting Heart Rate Post-Dialysis 88 BPM Standing Heart Rate Pre-Dialysis 86 BPM Standing Heart Rate Post-Dialysis 88 BPM Temperature Pre-Dialysis 98 degF Temperature Post -Dialysis 98 degF March 18, 2024 In-Center Hemodialysis Treatment [id number]:30:35.000Z 8679-31-12E57:00:10.000Z BP Sitting (Pre-Dialysis) 184/90 mmHg BP Sitting (Post-Dialysis) 182/96 mmHg Concurrent Access: trueAV Fistula Forearm (Left) ArterialCentral Venous Catheter (CVC) Chest (Right) Venous Sitting Heart Rate Pre-Dialysis 82 BPM BP Standi ng (Post-Dialysis) 157/107 mmHg Temperature Pre-Dialysis 98 degF Sitting Heart Ra te Post-Dialysis 74 BPM Standing Heart Rate Post-Rina lysis 78 BPM Temperature Post-Dialysis 98 .2 degF March 16, 2024 In-Center Hemodialysis Treatment [id number]:27:00.000Z 8697-01-60H84:00:25.000Z BP Sitting (Pre-Dialysis) 185/92 mmHg BP Sitting (Post-Dialysis) 159/109 mmHg Concurrent Access: falseCentral Venous Catheter (CVC) Chest (Right) ArterialAV Fistula Forearm (Left) Venous BP Standing (Pre-Dialysis) 183/95 mmHg BP Standing (P ost-Dialysis) 125/81 mmHg Sitting Heart Rate Pre-Dialysis 84 BPM Sitting Heart Rate Post-Dialysis 82 BPM Standing Heart Rate Pre-Dialysis 84 BPM Standing Heart Rate Post-Dialysis 89 BPM Temperature Pre-Dialysis 97.3 degF Temperature Post -Dialysis 97.7 degF March 14, 2024 In-Center Hemodialysis Treatment 7875-40-13C61:01:00.000Z 7172-57-00O30:33:11.000Z BP Sitting (Pre-Dialysis) 187/106 mmHg BP Sitting (Post-Dialysis) 154/94 mmHg Concurrent Access: falseCentral Venous Catheter (CVC) Chest (Right) ArterialAV Fistula Forearm (Left) Venous BP Standing (Pre-Dialysis) 181/98 mmHg BP Standing (P ost-Dialysis) 154/93 mmHg Sitting Heart Rate Pre-Dialysis 84 BPM Sitting Heart Rate Post-Dialysis 85 BPM Standing Heart Rate Pre-Dialysis 89 BPM Standing Heart Rate Post-Dialysis 89 BPM Temperature Pre-Dialysis 98 degF Temperature Post -Dialysis 98.4 degF March 11, 2024 In-Center Hemodialysis Treatment [id number]:23:52.000Z 0058-67-59R86:53:52.000Z BP Sitting (Pre-Dialysis) 174/80 mmHg BP Sitting (Post-Dialysis) 147/90 mmHg Concurrent Access: falseCentral Venous Catheter (CVC) Chest (Right) ArterialAV Fistula Forearm (Left) Venous BP Standing (Pre-Dialysis) 188/85 mmHg BP Standing (P ost-Dialysis) 124/74 mmHg Sitting Heart Rate Pre-Dialysis 83 BPM Sitting Heart Rate Post-Dialysis 84 BPM Standing Heart Rate Pre-Dialysis 86 BPM Standing Heart Rate Post-Dialysis 88 BPM Temperature Pre-Dialysis 98 degF Temperature Post -Dialysis 97.4 degF March 09, 2024 In-Center Hemodialysis Treatment 4352-10-37P84:57:00.000Z 0175-83-70I28:40:36.000Z BP Sitting (Pre-Dialysis) 197/108 mmHg BP Sitting (Post-Dialysis) 126/78 mmHg Concurrent Access: falseCentral Venous Catheter (CVC) Chest (Right) ArterialAV Fistula Forearm (Left) Venous BP Standing (Pre-Dialysis) 184/99 mmHg BP Standing (P ost-Dialysis) 115/70 mmHg Sitting Heart Rate Pre-Dialysis 86 BPM Sitting Heart Rate Post-Dialysis 88 BPM Standing Heart Rate Pre-Dialysis 86 BPM Standing Heart Rate Post-Dialysis 91 BPM Temperature Pre-Dialysis 97.6 degF Temperature Post -Dialysis 97.6 degF March 07, 2024 In-Center Hemodialysis Treatment 2417-39-17A34:08:00.000Z 0104-50-16P18:42:59.000Z BP Sitting (Pre-Dialysis) 172/102 mmHg BP Sitting (Post-Dialysis) 139/93 mmHg Concurrent Access: falseCentral Venous Catheter (CVC) Chest (Right) ArterialAV Fistula Forearm (Left) Venous BP Standing (Pre-Dialysis) 159/87 mmHg Sitti ng Heart Rate Post-Dialysis 87 BPM Sitting Heart Rate Pre-Dialysis 85 BPM Temperatu re Post-Dialysis 97.8 degF Standing Heart Rate Pre-Dialysis 83 BPM Temperature Pre-Dialysis 97.8 degF March 04, 2024 In-Center Hemodialysis Treatment [id number]:44:00.000Z 8315-12-25R54:14:00.000Z BP Sitting (Pre-Dialysis) 188/100 mmHg BP Sitting (Post-Dialysis) 142/83 mmHg Concurrent Access: falseCentral Venous Catheter (CVC) Chest (Right) ArterialAV Fistula Forearm (Left) Venous BP Standing (Pre-Dialysis) 190/102 mmHg BP Standing (P ost-Dialysis) 150/78 mmHg Sitting Heart Rate Pre-Dialysis 83 BPM Sitting Heart Rate Post-Dialysis 81 BPM Standing Heart Rate Pre-Dialysis 90 BPM Standing Heart Rate Post-Dialysis 87 BPM Temperature Pre-Dialysis 97.2 degF Temperature Post -Dialysis 97.8 degF March 02, 2024 In-Center Hemodialysis Treatment [id number]:14:00.000Z 3368-99-88E25:41:17.000Z BP Sitting (Pre-Dialysis) 164/76 mmHg BP Sitting (Post-Dialysis) 153/90 mmHg Concurrent Access: falseCentral Venous Catheter (CVC) Chest (Right) ArterialAV Fistula Forearm (Left) Venous BP Standing (Pre-Dialysis) 136/81 mmHg BP Standing (P ost-Dialysis) 128/78 mmHg Sitting Heart Rate Pre-Dialysis 81 BPM Sitting Heart Rate Post-Dialysis 79 BPM Standing Heart Rate Pre-Dialysis 83 BPM Standing Heart Rate Post-Dialysis 85 BPM Temperature Pre-Dialysis 97.3 degF Temperature Post -Dialysis 97.3 degF February 29, 2024 In-Center Hemodialysis Treatment 1036-13-55O39:14:00.000Z 1200-15-54U57:46:48.000Z BP Sitting (Pre-Dialysis) 204/107 mmHg BP Sitting (Post-Dialysis) 149/88 mmHg Concurrent Access: falseCentral Venous Catheter (CVC) Chest (Right) ArterialAV Fistula Forearm (Left) Venous BP Standing (Pre-Dialysis) 186/107 mmHg BP Standing (P ost-Dialysis) 128/65 mmHg Sitting Heart Rate Pre-Dialysis 80 BPM Sitting Heart Rate Post-Dialysis 83 BPM Standing Heart Rate Pre-Dialysis 84 BPM Standing Heart Rate Post-Dialysis 92 BPM Temperature Pre-Dialysis 97.1 degF Temperature Post -Dialysis 98.2 degF February 26, 2024 In-Center Hemodialysis Treatment 6430-29-46V34:20:00.000Z 7114-85-82G71:01:37.000Z BP Sitting (Pre-Dialysis) 208/122 mmHg BP Sitting (Post-Dialysis) 138/96 mmHg Concurrent Access: falseCentral Venous Catheter (CVC) Chest (Right) ArterialAV Fistula Forearm (Left) Venous BP Standing (Pre-Dialysis) 191/113 mmHg BP Standing (P ost-Dialysis) 123/79 mmHg Sitting Heart Rate Pre-Dialysis 84 BPM Sitting Heart Rate Post-Dialysis 88 BPM Standing Heart Rate Pre-Dialysis 88 BPM Standing Heart Rate Post-Dialysis 93 BPM Temperature Pre-Dialysis 98.2 degF Temperature Post -Dialysis 97.3 degF February 24, 2024 In-Center Hemodialysis Treatment 3956-82-93E33:45:00.000Z 3895-86-85B37:17:44.000Z BP Sitting (Pre-Dialysis) 182/79 mmHg BP Sitting (Post-Dialysis) 150/99 mmHg Concurrent Access: falseCentral Venous Catheter (CVC) Chest (Right) ArterialAV Fistula Forearm (Left) Venous BP Standing (Pre-Dialysis) 154/87 mmHg BP Standing (P ost-Dialysis) 127/74 mmHg Sitting Heart Rate Pre-Dialysis 89 BPM Sitting Heart Rate Post-Dialysis 91 BPM Standing Heart Rate Pre-Dialysis 109 BPM Standing Heart Rate Post-Dialysis 92 BPM Temperature Pre-Dialysis 97.7 degF Temperature Post -Dialysis 97.8 degF [facility]-19-54X08:07:00.000Z 0430-79-85F51:39:00.000Z BP Sitting (Pre-Dialysis) 181/126 mmHg BP Sitting (Post-Dialysis) 141/103 mmHg Concurrent Access: falseCentral Venous Catheter (CVC) Chest (Right) ArterialAV Fistula Forearm (Left) Venous BP Standing (Pre-Dialysis) 198/103 mmHg BP Standing (P ost-Dialysis) 144/82 mmHg Sitting Heart Rate Pre-Dialysis 72 BPM Sitting Heart Rate Post-Dialysis 87 BPM Standing Heart Rate Pre-Dialysis 86 BPM Standing Heart Rate Post-Dialysis 90 BPM Temperature Pre-Dialysis 97.8 degF Temperature Post -Dialysis 97.7 degF February 17, 2024 InCenter Hemodialysis Treatment 5419-40-31Y71:21:58.000Z 2727-59-89B08:55:18.000Z BP Sitting (Pre-Dialysis) 172/99 mmHg BP Sitting (Post-Dialysis) 133/90 mmHg Concurrent Access: falseCentral Venous Catheter (CVC) Chest (Right) ArterialAV Fistula Forearm (Left) Venous BP Standing (Pre-Dialysis) 145/83 mmHg BP Standing (P ost-Dialysis) 135/68 mmHg Sitting Heart Rate Pre-Dialysis 88 BPM Sitting Heart Rate Post-Dialysis 88 BPM Standing Heart Rate Pre-Dialysis 92 BPM Standing Heart Rate Post-Dialysis 98 BPM Temperature Pre-Dialysis 98 degF Temperature Post -Dialysis 96.6 degF February 15, 2024 In-Center Hemodialysis Treatment [id number]:22:05.000Z 2792-88-87W50:54:10.000Z BP Sitting (Pre-Dialysis) 196/105 mmHg BP Sitting (Post-Dialysis) 153/109 mmHg Concurrent Access: falseCentral Venous Catheter (CVC) Chest (Right) ArterialAV Fistula Forearm (Left) Venous BP Standing (Pre-Dialysis) 170/106 mmHg BP Standing (P ost-Dialysis) 164/66 mmHg Sitting Heart Rate Pre-Dialysis 87 BPM Sitting Heart Rate Post-Dialysis 86 BPM Standing Heart Rate Pre-Dialysis 89 BPM Standing Heart Rate Post-Dialysis 92 BPM Temperature Pre-Dialysis 96.4 degF Temperature Post -Dialysis 96.5 degF February 12, 2024 In-Center Hemodialysis Treatment 3339-62-11I33:34:04.000Z 5808-39-26B38:05:44.000Z BP Sitting (Pre-Dialysis) 141/81 mmHg BP Sitting (Post-Dialysis) 124/59 mmHg Concurrent Access: falseCentral Venous Catheter (CVC) Chest (Right) ArterialAV Fistula Forearm (Left) Venous BP Standing (Pre-Dialysis) 139/81 mmHg BP Standing (P ost-Dialysis) 108/63 mmHg Sitting Heart Rate Pre-Dialysis 83 BPM Sitting Heart Rate Post-Dialysis 84 BPM Standing Heart Rate Pre-Dialysis 88 BPM Standing Heart Rate Post-Dialysis 96 BPM Temperature Pre-Dialysis 97.3 degF Temperature Post -Dialysis 97.2 degF February 10, 2024 In-Center Hemodialysis Treatment 2356-74-84E48:19:00.000Z 5674-96-61H81:54:44.000Z BP Sitting (Pre-Dialysis) 160/80 mmHg BP Sitting (Post-Dialysis) 130/72 mmHg Concurrent Access: falseCentral Venous Catheter (CVC) Chest (Right) ArterialAV Fistula Forearm (Left) Venous BP Standing (Pre-Dialysis) 152/82 mmHg BP Standing (P ost-Dialysis) 107/64 mmHg Sitting Heart Rate Pre-Dialysis 83 BPM Sitting Heart Rate Post-Dialysis 84 BPM Standing Heart Rate Pre-Dialysis 87 BPM Standing Heart Rate Post-Dialysis 89 BPM Temperature Pre-Dialysis 96.6 degF Temperature Post -Dialysis 97.2 degF February 08, 2024 In-Center Hemodialysis Treatment 1828-81-09A94:34:00.000Z 2055-80-30T93:11:12.000Z BP Sitting (Pre-Dialysis) 172/93 mmHg BP Sitting (Post-Dialysis) 128/79 mmHg Concurrent Access: falseCentral Venous Catheter (CVC) Chest (Right) ArterialAV Fistula Forearm (Left) Venous BP Standing (Pre-Dialysis) 146/76 mmHg BP Standing (P ost-Dialysis) 105/60 mmHg Sitting Heart Rate Pre-Dialysis 82 BPM Sitting Heart Rate Post-Dialysis 88 BPM Standing Heart Rate Pre-Dialysis 85 BPM Standing Heart Rate Post-Dialysis 92 BPM Temperature Pre-Dialysis 97.7 degF Temperature Post -Dialysis 97.2 degF February 05, 2024 In-Center Hemodialysis Treatment 6941-87-28S39:08:00.000Z 8466-52-57M53:51:00.000Z BP Sitting (Pre-Dialysis) 149/91 mmHg BP Sitting (Post-Dialysis) 129/80 mmHg Concurrent Access: falseCentral Venous Catheter (CVC) Chest (Right) ArterialAV Fistula Forearm (Left) Venous BP Standing (Pre-Dialysis) 116/83 mmHg BP Standing (P ost-Dialysis) 133/75 mmHg Sitting Heart Rate Pre-Dialysis 82 BPM Sitting Heart Rate Post-Dialysis 86 BPM Standing Heart Rate Pre-Dialysis 88 BPM Standing Heart Rate Post-Dialysis 89 BPM Temperature Pre-Dialysis 97.1 degF Temperature Post -Dialysis 97.6 degF February 03, 2024 In-Center Hemodialysis Treatment 6914-55-15F87:10:00.000Z 7118-05-30I70:42:00.000Z BP Sitting (Pre-Dialysis) 188/115 mmHg BP Sitting (Post-Dialysis) 137/81 mmHg Concurrent Access: falseCentral Venous Catheter (CVC) Chest (Right) ArterialAV Fistula Forearm (Left) Venous BP Standing (Pre-Dialysis) 173/89 mmHg Sitti ng Heart Rate Post-Dialysis 85 BPM Sitting Heart Rate Pre-Dialysis 83 BPM Temperatu re Post-Dialysis 97.6 degF Standing Heart Rate Pre-Dialysis 86 BPM Temperature Pre-Dialysis 97.3 degF February 01, 2024 In-Center Hemodialysis Treatment [id number]:26:00.000Z 5233-63-57I61:58:23.000Z BP Sitting (Pre-Dialysis) 150/80 mmHg BP Sitting (Post-Dialysis) 162/99 mmHg Concurrent Access: falseCentral Venous Catheter (CVC) Chest (Right) ArterialAV Fistula Forearm (Left) Venous BP Standing (Pre-Dialysis) 136/80 mmHg BP Standing (P ost-Dialysis) 147/61 mmHg Sitting Heart Rate Pre-Dialysis 79 BPM Sitting Heart Rate Post-Dialysis 86 BPM Standing Heart Rate Pre-Dialysis 81 BPM Standing Heart Rate Post-Dialysis 105 BPM Temperature Pre-Dialysis 97.7 degF Temperature Post -Dialysis 98.1 degF January 29, 2024 In-Center Hemodialysis Treatment 9424-14-66I83:23:45.000Z 1093-01-41V36:55:50.000Z BP Sitting (Pre-Dialysis) 185/103 mmHg BP Sitting (Post-Dialysis) 125/92 mmHg Concurrent Access: falseCentral Venous Catheter (CVC) Chest (Right) ArterialAV Fistula Forearm (Left) Venous BP Standing (Pre-Dialysis) 168/72 mmHg BP Standing (P ost-Dialysis) 113/50 mmHg Sitting Heart Rate Pre-Dialysis 89 BPM Sitting Heart Rate Post-Dialysis 82 BPM Standing Heart Rate Pre-Dialysis 94 BPM Standing Heart Rate Post-Dialysis 97 BPM Temperature Pre-Dialysis 97.6 degF Temperature Post -Dialysis 97.6 degF January 27, 2024 In-Center Hemodialysis Treatment [id number]:26:49.000Z 6782-12-24G63:56:49.000Z BP Sitting (Pre-Dialysis) 184/77 mmHg BP Sitting (Post-Dialysis) 136/76 mmHg Concurrent Access: falseCentral Venous Catheter (CVC) Chest (Right) ArterialAV Fistula Forearm (Left) Venous BP Standing (Pre-Dialysis) 166/95 mmHg BP Standing (P ost-Dialysis) 121/64 mmHg Sitting Heart Rate Pre-Dialysis 96 BPM Sitting Heart Rate Post-Dialysis 89 BPM Standing Heart Rate Pre-Dialysis 95 BPM Standing Heart Rate Post-Dialysis 96 BPM Temperature Pre-Dialysis 97.7 degF Temperature Post -Dialysis 98.3 degF January 24, 2024 In-Center Hemodialysis Treatment 8357-61-32S31:22:00.000Z 5630-06-68Y55:00:41.000Z BP Sitting (Pre-Dialysis) 181/105 mmHg BP Sitting (Post-Dialysis) 126/81 mmHg Concurrent Access: falseCentral Venous Catheter (CVC) Chest (Right) Arterial BP Standing (Pre-Dialysis) 171/95 mmHg BP Standing (P ost-Dialysis) 132/64 mmHg Sitting Heart Rate Pre-Dialysis 89 BPM Sitting Heart Rate Post-Dialysis 86 BPM Standing Heart Rate Pre-Dialysis 91 BPM Standing Heart Rate Post-Dialysis 78 BPM Temperature Pre-Dialysis 97.6 degF Temperature Post -Dialysis 97.3 degF January 20, 2024 In-Center Hemodialysis Treatment 1545-80-26B65:18:00.000Z 4224-24-90B96:49:56.000Z BP Sitting (Pre-Dialysis) 194/108 mmHg BP Sitting (Post-Dialysis) 119/74 mmHg Concurrent Access: falseCentral Venous Catheter (CVC) Chest (Right) Arterial BP Standing (Pre-Dialysis) 148/88 mmHg Sitti ng Heart Rate Post-Dialysis 93 BPM Sitting Heart Rate Pre-Dialysis 85 BPM Temperatu re Post-Dialysis 97.6 degF Standing Heart Rate Pre-Dialysis 92 BPM Temperature Pre-Dialysis 97.5 degF January 18, 2024 In-Center Hemodialysis Treatment 2669-10-06S86:09:00.000Z 0393-98-69A89:41:25.000Z BP Sitting (Pre-Dialysis) 186/99 mmHg BP Sitting (Post-Dialysis) 152/100 mmHg Concurrent Access: falseCentral Venous Catheter (CVC) Chest (Right) Arterial BP Standing (Pre-Dialysis) 163/92 mmHg BP Standing (P ost-Dialysis) 119/69 mmHg Sitting Heart Rate Pre-Dialysis 85 BPM Sitting Heart Rate Post-Dialysis 83 BPM Standing Heart Rate Pre-Dialysis 89 BPM Standing Heart Rate Post-Dialysis 89 BPM Temperature Pre-Dialysis 97.6 degF Temperature Post -Dialysis 97.6 degF January 15, 2024 In-Center Hemodialysis Treatment [id number]:33:10.000Z 6426-29-75H21:04:06.000Z BP Sitting (Pre-Dialysis) 151/102 mmHg BP Sitting (Post-Dialysis) 110/62 mmHg Concurrent Access: falseCentral Venous Catheter (CVC) Chest (Right) Arterial BP Standing (Pre-Dialysis) 167/88 mmHg BP Standing (P ost-Dialysis) 111/57 mmHg Sitting Heart Rate Pre-Dialysis 89 BPM Sitting Heart Rate Post-Dialysis 93 BPM Standing Heart Rate Pre-Dialysis 88 BPM Standing Heart Rate Post-Dialysis 100 BPM Temperature Pre-Dialysis 97.2 degF Temperature Post -Dialysis 97.5 degF January 13, 2024 In-Center Hemodialysis Treatment [id number]:38:44.000Z 8659-93-98B70:08:44.000Z BP Sitting (Pre-Dialysis) 184/97 mmHg BP Sitting (Post-Dialysis) 107/63 mmHg Concurrent Access: falseCentral Venous Catheter (CVC) Chest (Right) Arterial BP Standing (Pre-Dialysis) 163/113 mmHg BP Standing (P ost-Dialysis) 107/54 mmHg Sitting Heart Rate Pre-Dialysis 90 BPM Sitting Heart Rate Post-Dialysis 81 BPM Standing Heart Rate Pre-Dialysis 92 BPM Standing Heart Rate Post-Dialysis 88 BPM Temperature Pre-Dialysis 97.6 degF Temperature Post -Dialysis 97.2 degF January 11, 2024 In-Center Hemodialysis Treatment [id number]:26:55.000Z 3431-35-42M96:56:30.000Z BP Sitting (Pre-Dialysis) 176/93 mmHg BP Sitting (Post-Dialysis) 136/70 mmHg Concurrent Access: falseCentral Venous Catheter (CVC) Chest (Right) Arterial BP Standing (Pre-Dialysis) 185/98 mmHg Sitting Heart Rate Post-Dialysis 65 BPM Sitting Heart Rate Pre-Dialysis 85 BPM Temperatu re Post-Dialysis 97 degF Standing Heart Rate Pre-Dialysis 92 BPM Temperature Pre-Dialysis 97.6 degF January 08, 2024 In-Center Hemodialysis Treatment 6556-00-27J41:39:00.000Z 6862-81-40T09:11:42.000Z BP Sitting (Pre-Dialysis) 208/110 mmHg BP Sitting (Post-Dialysis) 134/86 mmHg Concurrent Access: falseCentral Venous Catheter (CVC) Chest (Right) Arterial BP Standing (Pre-Dialysis) 194/100 mmHg BP Standing (P ost-Dialysis) 129/91 mmHg Sitting Heart Rate Pre-Dialysis 84 BPM Sitting Heart Rate Post-Dialysis 90 BPM Standing Heart Rate Pre-Dialysis 92 BPM Standing Heart Rate Post-Dialysis 94 BPM Temperature Pre-Dialysis 98.2 degF Temperature Post -Dialysis 97.8 degF January 06, 2024 In-Center Hemodialysis Treatment 4401-14-46D79:21:42.000Z 5589-97-10Y85:51:42.000Z BP Sitting (Pre-Dialysis) 164/118 mmHg BP Sitting (Post-Dialysis) 154/94 mmHg Concurrent Access: falseCentral Venous Catheter (CVC) Chest (Right) Arterial BP Standing (Pre-Dialysis) 163/91 mmHg BP Standing (P ost-Dialysis) 163/79 mmHg Sitting Heart Rate Pre-Dialysis 85 BPM Sitting Heart Rate Post-Dialysis 86 BPM Standing Heart Rate Pre-Dialysis 92 BPM Standing Heart Rate Post-Dialysis 95 BPM Temperature Pre-Dialysis 98.3 degF Temperature Post -Dialysis 97.7 degF January 04, 2024 In-Center Hemodialysis Treatment 0739-51-56F67:49:00.000Z 7045-85-43Y12:23:18.000Z BP Sitting (Pre-Dialysis) 158/92 mmHg BP Sitting (Post-Dialysis) 126/80 mmHg Concurrent Access: falseCentral Venous Catheter (CVC) Chest (Right) Arterial BP Standing (Pre-Dialysis) 171/97 mmHg BP Standing (P ost-Dialysis) 132/78 mmHg Sitting Heart Rate Pre-Dialysis 92 BPM Sitting Heart Rate Post-Dialysis 80 BPM Standing Heart Rate Pre-Dialysis 93 BPM Standing Heart Rate Post-Dialysis 90 BPM Temperature Pre-Dialysis 98 degF Temperature Post -Dialysis 97.4 degF January 01, 2024 In-Center Hemodialysis Treatment 2442-77-94X87:19:00.000Z 7241-55-91C16:49:00.000Z BP Sitting (Pre-Dialysis) 163/89 mmHg BP Sitting (Post-Dialysis) 126/83 mmHg Concurrent Access: falseCentral Venous Catheter (CVC) Chest (Right) Arterial BP Standing (Pre-Dialysis) 159/93 mmHg BP Standing (P ost-Dialysis) 120/77 mmHg Sitting Heart Rate Pre-Dialysis 84 BPM Sitting Heart Rate Post-Dialysis 87 BPM Standing Heart Rate Pre-Dialysis 85 BPM Standing Heart Rate Post-Dialysis 94 BPM Temperature Pre-Dialysis 98 degF Temperature Post -Dialysis 97.3 degF December 30, 2023 In-Center Hemodialysis Treatment 5393-06-36Z27:15:00.000Z 9814-55-17D49:45:13.000Z BP Sitting (Pre-Dialysis) 198/114 mmHg BP Sitting (Post-Dialysis) 140/96 mmHg Concurrent Access: falseCentral Venous Catheter (CVC) Chest (Right) Arterial BP Standing (Pre-Dialysis) 184/106 mmHg BP Standing (P ost-Dialysis) 146/93 mmHg Sitting Heart Rate Pre-Dialysis 88 BPM Sitting Heart Rate Post-Dialysis 87 BPM Standing Heart Rate Pre-Dialysis 89 BPM Standing Heart Rate Post-Dialysis 91 BPM Temperature Pre-Dialysis 98.2 degF Temperature Post -Dialysis 97.2 degF December 28, 2023 In-Center Hemodialysis Treatment 8639-17-42J25:18:35.000Z 0300-84-78R98:55:15.000Z BP Sitting (Pre-Dialysis) 188/120 mmHg BP Sitting (Post-Dialysis) 125/90 mmHg Concurrent Access: falseCentral Venous Catheter (CVC) Chest (Right) Arterial BP Standing (Pre-Dialysis) 135/36 mmHg BP Standing (P ost-Dialysis) 117/63 mmHg Sitting Heart Rate Pre-Dialysis 86 BPM Sitting Heart Rate Post-Dialysis 86 BPM Standing Heart Rate Pre-Dialysis 80 BPM Standing Heart Rate Post-Dialysis 96 BPM Temperature Pre-Dialysis 98 degF Temperature Post -Dialysis 97.6 degF December 25, 2023 In-Center Hemodialysis Treatment [id number]:13:00.000Z 8700-87-25R86:44:49.000Z BP Sitting (Pre-Dialysis) 151/84 mmHg BP Sitting (Post-Dialysis) 111/80 mmHg Concurrent Access: falseCentral Venous Catheter (CVC) Chest (Right) Arterial BP Standing (Pre-Dialysis) 118/60 mmHg BP Standing (P ost-Dialysis) 116/56 mmHg Sitting Heart Rate Pre-Dialysis 84 BPM Sitting Heart Rate Post-Dialysis 94 BPM Standing Heart Rate Pre-Dialysis 87 BPM Standing Heart Rate Post-Dialysis 94 BPM Temperature Pre-Dialysis 98.1 degF Temperature Post -Dialysis 98.1 degF December 23, 2023 In-Center Hemodialysis Treatment [id number]:10:00.000Z [id number]:45:53.000Z BP Sitting (Pre-Dialysis) 137/89 mmHg BP Sitting (Post-Dialysis) 172/81 mmHg Concurrent Access: falseCentral Venous Catheter (CVC) Chest (Right) Arterial BP Standing (Pre-Dialysis) 148/81 mmHg BP Standing (P ost-Dialysis) 119/75 mmHg Sitting Heart Rate Pre-Dialysis 85 BPM Sitting Heart Rate Post-Dialysis 82 BPM Standing Heart Rate Pre-Dialysis 86 BPM Standing Heart Rate Post-Dialysis 92 BPM Temperature Pre-Dialysis 97.4 degF Temperature Post -Dialysis 97.2 degF December 21, 2023 In-Center Hemodialysis Treatment [id number]:15:00.000Z [id number]:45:21.000Z BP Sitting (Pre-Dialysis) 206/112 mmHg BP Sitting (Post-Dialysis) 159/97 mmHg Concurrent Access: falseCentral Venous Catheter (CVC) Chest (Right) Arterial BP Standing (Pre-Dialysis) 174/120 mmHg Sitti ng Heart Rate Post-Dialysis 82 BPM Sitting Heart Rate Pre-Dialysis 80 BPM Temperatu re Post-Dialysis 98.3 degF Standing Heart Rate Pre-Dialysis 84 BPM Temperature Pre-Dialysis 97.7 degF December 18, 2023 In-Center Hemodialysis Treatment [id number]:42:59.000Z [id number]:12:59.000Z BP Sitting (Pre-Dialysis) 164/95 mmHg BP Sitting (Post-Dialysis) 134/78 mmHg Concurrent Access: falseCentral Venous Catheter (CVC) Chest (Right) Arterial BP Standing (Pre-Dialysis) 171/100 mmHg BP Standing (P ost-Dialysis) 125/65 mmHg Sitting Heart Rate Pre-Dialysis 82 BPM Sitting Heart Rate Post-Dialysis 80 BPM Standing Heart Rate Pre-Dialysis 88 BPM Standing Heart Rate Post-Dialysis 87 BPM Temperature Pre-Dialysis 97.6 degF Temperature Post -Dialysis 98 degF December 16, 2023 In-Center Hemodialysis Treatment [id number]:01:00.000Z [id number]:35:52.000Z BP Sitting (Pre-Dialysis) 180/96 mmHg BP Sitting (Post-Dialysis) 151/86 mmHg Concurrent Access: falseCentral Venous Catheter (CVC) Chest (Right) Arterial BP Standing (Pre-Dialysis) 160/84 mmHg BP Standing (P ost-Dialysis) 124/86 mmHg Sitting Heart Rate Pre-Dialysis 83 BPM Sitting Heart Rate Post-Dialysis 80 BPM Standing Heart Rate Pre-Dialysis 86 BPM Standing Heart Rate Post-Dialysis 87 BPM Temperature Pre-Dialysis 97.4 degF Temperature Post -Dialysis 97.3 degF December 14, 2023 In-Center Hemodialysis Treatment [id number]:20:11.000Z [id number]:55:11.000Z BP Sitting (Pre-Dialysis) 165/84 mmHg BP Sitting (Post-Dialysis) 179/99 mmHg Concurrent Access: falseCentral Venous Catheter (CVC) Chest (Right) Arterial BP Standing (Pre-Dialysis) 162/85 mmHg BP Standing (P ost-Dialysis) 111/78 mmHg Sitting Heart Rate Pre-Dialysis 80 BPM Sitting Heart Rate Post-Dialysis 83 BPM Standing Heart Rate Pre-Dialysis 83 BPM Standing Heart Rate Post-Dialysis 91 BPM Temperature Pre-Dialysis 97.8 degF Temperature Post -Dialysis 98 degF December 11, 2023 In-Center Hemodialysis Treatment [id number]:38:00.000Z [id number]:16:39.000Z BP Sitting (Pre-Dialysis) 155/88 mmHg BP Sitting (Post-Dialysis) 150/91 mmHg Concurrent Access: falseCentral Venous Catheter (CVC) Chest (Right) Arterial BP Standing (Pre-Dialysis) 163/91 mmHg BP Standing (P ost-Dialysis) 105/66 mmHg Sitting Heart Rate Pre-Dialysis 87 BPM Sitting Heart Rate Post-Dialysis 81 BPM Standing Heart Rate Pre-Dialysis 88 BPM Standing Heart Rate Post-Dialysis 88 BPM Temperature Pre-Dialysis 97.6 degF Temperature Post -Dialysis 98.2 degF December 09, 2023 In-Center Hemodialysis Treatment [id number]:03:21.000Z [id number]:40:01.000Z BP Sitting (Pre-Dialysis) 212/100 mmHg BP Sitting (Post-Dialysis) 132/78 mmHg Concurrent Access: falseCentral Venous Catheter (CVC) Chest (Right) Arterial BP Standing (Pre-Dialysis) 180/93 mmHg BP Standing (P ost-Dialysis) 114/62 mmHg Sitting Heart Rate Pre-Dialysis 90 BPM Sitting Heart Rate Post-Dialysis 81 BPM Standing Heart Rate Pre-Dialysis 91 BPM Standing Heart Rate Post-Dialysis 88 BPM Temperature Pre-Dialysis 97.8 degF Temperature Post -Dialysis 97.7 degF December 07, 2023 In-Center Hemodialysis Treatment [id number]:42:47.000Z [id number]:14:02.000Z BP Sitting (Pre-Dialysis) 154/80 mmHg BP Sitting (Post-Dialysis) 123/83 mmHg Concurrent Access: falseCentral Venous Catheter (CVC) Chest (Right) Arterial BP Standing (Pre-Dialysis) 154/82 mmHg BP Standing (P ost-Dialysis) 136/90 mmHg Sitting Heart Rate Pre-Dialysis 88 BPM Sitting Heart Rate Post-Dialysis 82 BPM Standing Heart Rate Pre-Dialysis 88 BPM Standing Heart Rate Post-Dialysis 86 BPM Temperature Pre-Dialysis 97.6 degF Temperature Post -Dialysis 97.3 degF December 04, 2023 In-Center Hemodialysis Treatment [id number]:34:00.000Z [id number]:09:43.000Z BP Sitting (Pre-Dialysis) 192/105 mmHg BP Sitting (Post-Dialysis) 142/88 mmHg Concurrent Access: falseCentral Venous Catheter (CVC) Chest (Right) Arterial BP Standing (Pre-Dialysis) 166/103 mmHg BP Standing (P ost-Dialysis) 110/60 mmHg Sitting Heart Rate Pre-Dialysis 87 BPM Sitting Heart Rate Post-Dialysis 84 BPM Standing Heart Rate Pre-Dialysis 92 BPM Standing Heart Rate Post-Dialysis 90 BPM Temperature Pre-Dialysis 98.2 degF Temperature Post -Dialysis 97.7 degF December 02, 2023 In-Center Hemodialysis Treatment [id number]:00:00.000Z [id number]:30:29.000Z BP Sitting (Pre-Dialysis) 181/104 mmHg BP Sitting (Post-Dialysis) 130/71 mmHg Concurrent Access: falseCentral Venous Catheter (CVC) Chest (Right) Arterial BP Standing (Pre-Dialysis) 129/78 mmHg Sitti ng Heart Rate Post-Dialysis 80 BPM Sitting Heart Rate Pre-Dialysis 82 BPM Temperatu re Post-Dialysis 97.8 degF Standing Heart Rate Pre-Dialysis 87 BPM Temperature Pre-Dialysis 98 degF November 30, 2023 In-Center Hemodialysis Treatment [id number]:06:00.000Z [id number]:41:58.000Z BP Sitting (Pre-Dialysis) 178/89 mmHg BP Sitting (Post-Dialysis) 144/75 mmHg Concurrent Access: falseCentral Venous Catheter (CVC) Chest (Right) Arterial BP Standing (Pre-Dialysis) 173/88 mmHg BP Standing (P ost-Dialysis) 100/53 mmHg Sitting Heart Rate Pre-Dialysis 85 BPM Sitting Heart Rate Post-Dialysis 81 BPM Standing Heart Rate Pre-Dialysis 86 BPM Standing Heart Rate Post-Dialysis 89 BPM Temperature Pre-Dialysis 98 degF Temperature Post -Dialysis 97.4 degF November 27, 2023 In-Center Hemodialysis Treatment [id number]:28:09.000Z [id number]:01:29.000Z BP Sitting (Pre-Dialysis) 171/91 mmHg BP Sitting (Post-Dialysis) 131/80 mmHg Concurrent Access: falseCentral Venous Catheter (CVC) Chest (Right) Arterial BP Standing (Pre-Dialysis) 155/76 mmHg Sitti ng Heart Rate Post-Dialysis 78 BPM Sitting Heart Rate Pre-Dialysis 84 BPM Temperatu re Post-Dialysis 97.5 degF Standing Heart Rate Pre-Dialysis 86 BPM Temperature Pre-Dialysis 98.2 degF November 25, 2023 In-Center Hemodialysis Treatment [id number]:16:54.000Z [id number]:28:34.000Z BP Sitting (Pre-Dialysis) 185/95 mmHg BP Sitting (Post-Dialysis) 114/62 mmHg Concurrent Access: falseCentral Venous Catheter (CVC) Chest (Right) Arterial BP Standing (Pre-Dialysis) 182/91 mmHg BP Standing (P ost-Dialysis) 110/51 mmHg Sitting Heart Rate Pre-Dialysis 82 BPM Sitting Heart Rate Post-Dialysis 78 BPM Standing Heart Rate Pre-Dialysis 81 BPM Standing Heart Rate Post-Dialysis 87 BPM Temperature Pre-Dialysis 96.5 degF Temperature Post -Dialysis 97.4 degF November 23, 2023 In-Center Hemodialysis Treatment [id number]:49:00.000Z [id number]:25:13.000Z BP Sitting (Pre-Dialysis) 176/90 mmHg BP Sitting (Post-Dialysis) 152/73 mmHg Concurrent Access: falseCentral Venous Catheter (CVC) Chest (Right) Arterial BP Standing (Pre-Dialysis) 181/94 mmHg BP Standing (P ost-Dialysis) 133/65 mmHg Sitting Heart Rate Pre-Dialysis 84 BPM Sitting Heart Rate Post-Dialysis 78 BPM Standing Heart Rate Pre-Dialysis 87 BPM Standing Heart Rate Post-Dialysis 81 BPM Temperature Pre-Dialysis 97.7 degF Temperature Post -Dialysis 97.6 degF November 20, 2023 In-Center Hemodialysis Treatment [id number]:19:21.000Z [id number]:48:56.000Z BP Sitting (Pre-Dialysis) 174/88 mmHg BP Sitting (Post-Dialysis) 151/81 mmHg Concurrent Access: falseCentral Venous Catheter (CVC) Chest (Right) Arterial BP Standing (Pre-Dialysis) 160/76 mmHg BP Standing (P ost-Dialysis) 108/65 mmHg Sitting Heart Rate Pre-Dialysis 89 BPM Sitting Heart Rate Post-Dialysis 77 BPM Standing Heart Rate Pre-Dialysis 92 BPM Standing Heart Rate Post-Dialysis 81 BPM Temperature Pre-Dialysis 97.6 degF Temperature Post -Dialysis 98.2 degF November 18, 2023 In-Center Hemodialysis Treatment [id number]:29:48.000Z [id number]:45:31.000Z BP Sitting (Pre-Dialysis) 192/95 mmHg BP Sitting (Post-Dialysis) 113/62 mmHg Concurrent Access: falseCentral Venous Catheter (CVC) Chest (Right) Arterial BP Standing (Pre-Dialysis) 173/88 mmHg BP Standing (P ost-Dialysis) 113/62 mmHg Sitting Heart Rate Pre-Dialysis 84 BPM Sitting Heart Rate Post-Dialysis 80 BPM Standing Heart Rate Pre-Dialysis 87 BPM Standing Heart Rate Post-Dialysis 85 BPM Temperature Pre-Dialysis 97.7 degF November 16, 2023 In-Center Hemodialysis Treatment [id number]:21:00.000Z [id number]:56:00.000Z BP Sitting (Pre-Dialysis) 214/102 mmHg BP Sitting (Post-Dialysis) 194/89 mmHg Concurrent Access: falseCentral Venous Catheter (CVC) Chest (Right) Arterial BP Standing (Pre-Dialysis) 172/106 mmHg BP Standing (P ost-Dialysis) 162/78 mmHg Sitting Heart Rate Pre-Dialysis 81 BPM Sitting Heart Rate Post-Dialysis 78 BPM Standing Heart Rate Pre-Dialysis 87 BPM Standing Heart Rate Post-Dialysis 82 BPM Temperature Pre-Dialysis 97.9 degF Temperature Post -Dialysis 97.6 degF November 13, 2023 In-Center Hemodialysis Treatment [id number]:07:00.000Z [id number]:41:00.000Z BP Sitting (Pre-Dialysis) 158/82 mmHg BP Sitting (Post-Dialysis) 139/83 mmHg Concurrent Access: falseCentral Venous Catheter (CVC) Chest (Right) Arterial BP Standing (Pre-Dialysis) 156/81 mmHg BP Standing (P ost-Dialysis) 138/62 mmHg Sitting Heart Rate Pre-Dialysis 81 BPM Sitting Heart Rate Post-Dialysis 74 BPM Standing Heart Rate Pre-Dialysis 87 BPM Standing Heart Rate Post-Dialysis 67 BPM Temperature Pre-Dialysis 97.5 degF Temperature Post -Dialysis 98.2 degF November 11, 2023 In-Center Hemodialysis Treatment [id number]:30:17.000Z [id number]:56:07.000Z BP Sitting (Pre-Dialysis) 185/91 mmHg BP Sitting (Post-Dialysis) 130/68 mmHg Concurrent Access: falseCentral Venous Catheter (CVC) Chest (Right) Arterial BP Standing (Pre-Dialysis) 167/85 mmHg BP Standing (P ost-Dialysis) 106/67 mmHg Sitting Heart Rate Pre-Dialysis 87 BPM Sitting Heart Rate Post-Dialysis 79 BPM Standing Heart Rate Pre-Dialysis 92 BPM Standing Heart Rate Post-Dialysis 82 BPM Temperature Pre-Dialysis 97.2 degF Temperature Post -Dialysis 97.5 degF November 09, 2023 In-Center Hemodialysis Treatment [id number]:25:00.000Z [id number]:59:49.000Z BP Sitting (Pre-Dialysis) 181/97 mmHg BP Sitting (Post-Dialysis) 170/82 mmHg Concurrent Access: falseCentral Venous Catheter (CVC) Chest (Right) Arterial BP Standing (Pre-Dialysis) 171/83 mmHg BP Standing (P ost-Dialysis) 143/85 mmHg Sitting Heart Rate Pre-Dialysis 82 BPM Sitting Heart Rate Post-Dialysis 76 BPM Standing Heart Rate Pre-Dialysis 89 BPM Standing Heart Rate Post-Dialysis 79 BPM Temperature Pre-Dialysis 98.1 degF Temperature Post -Dialysis 97.2 degF November 06, 2023 In-Center Hemodialysis Treatment [id number]:39:28.000Z [id number]:09:03.000Z BP Sitting (Pre-Dialysis) 136/67 mmHg BP Sitting (Post-Dialysis) 162/84 mmHg Concurrent Access: falseCentral Venous Catheter (CVC) Chest (Right) Arterial BP Standing (Pre-Dialysis) 123/64 mmHg BP Standing (P ost-Dialysis) 132/71 mmHg Sitting Heart Rate Pre-Dialysis 90 BPM Sitting Heart Rate Post-Dialysis 80 BPM Standing Heart Rate Pre-Dialysis 93 BPM Standing Heart Rate Post-Dialysis 83 BPM Temperature Pre-Dialysis 98 degF Temperature Post -Dialysis 97.7 degF November 04, 2023 In-Center Hemodialysis Treatment [id number]:15:38.000Z [id number]:58:33.000Z BP Sitting (Pre-Dialysis) 184/99 mmHg BP Sitting (Post-Dialysis) 156/79 mmHg Concurrent Access: falseCentral Venous Catheter (CVC) Chest (Right) Arterial BP Standing (Pre-Dialysis) 122/71 mmHg Sitting Heart Rate Post-Dialysis 78 BPM Sitting Heart Rate Pre-Dialysis 87 BPM Temperatu re Post-Dialysis 98 degF Standing Heart Rate Pre-Dialysis 91 BPM Temperature Pre-Dialysis 97.7 degF November 02, 2023 In-Center Hemodialysis Treatment [id number]:07:00.000Z [id number]:37:55.000Z BP Sitting (Pre-Dialysis) 149/70 mmHg BP Sitting (Post-Dialysis) 123/67 mmHg Concurrent Access: falseCentral Venous Catheter (CVC) Chest (Right) Arterial BP Standing (Pre-Dialysis) 116/62 mmHg BP Standing (P ost-Dialysis) 114/55 mmHg Sitting Heart Rate Pre-Dialysis 78 BPM Sitting Heart Rate Post-Dialysis 72 BPM Standing Heart Rate Pre-Dialysis 78 BPM Standing Heart Rate Post-Dialysis 74 BPM Temperature Pre-Dialysis 97.7 degF Temperature Post -Dialysis 97.3 degF October 30, 2023 In-Center Hemodialysis Treatment [id number]:07:00.000Z [id number]:48:19.000Z BP Sitting (Pre-Dialysis) 159/82 mmHg BP Sitting (Post-Dialysis) 142/67 mmHg Concurrent Access: falseCentral Venous Catheter (CVC) Chest (Right) Arterial BP Standing (Pre-Dialysis) 166/81 mmHg BP Standing (P ost-Dialysis) 110/54 mmHg Sitting Heart Rate Pre-Dialysis 80 BPM Sitting Heart Rate Post-Dialysis 72 BPM Standing Heart Rate Pre-Dialysis 81 BPM Standing Heart Rate Post-Dialysis 75 BPM Temperature Pre-Dialysis 97.6 degF Temperature Post -Dialysis 97.8 degF October 28, 2023 In-Center Hemodialysis Treatment [id number]:25:12.000Z [id number]:55:12.000Z BP Sitting (Pre-Dialysis) 120/64 mmHg BP Sitting (Post-Dialysis) 124/68 mmHg Concurrent Access: falseCentral Venous Catheter (CVC) Chest (Right) Arterial BP Standing (Pre-Dialysis) 112/52 mmHg BP Standing (P ost-Dialysis) 98/53 mmHg Sitting Heart Rate Pre-Dialysis 70 BPM Sitting Heart Rate Post-Dialysis 71 BPM Standing Heart Rate Pre-Dialysis 72 BPM Standing Heart Rate Post-Dialysis 73 BPM Temperature Pre-Dialysis 97.6 degF Temperature Post -Dialysis 97.5 degF DIALYSIS ORDER Dialysis Procedure Orders Type of Dialysis Procedure Order Order Date/Time Observations In-Center Hemodialysis Treatment May 11, 2025 Target Weight 112 kg Dialysate Flow Rate 800 mL/min Blood Flow Rate 450 mL/min Treatment Time 210 min(total) Max UF Rate 13 mL/kg/hr Base Sodium Dialysate Base Sodium 138 mE q/L dialysate_temp 36.5 C BiCarb Dialysate BiCarbonate 35 mEq/L Access Concurrent No Arterial Access AV Fistula (Forearm (Left)) Venous Access AV Fistula (Forearm (Left)) Arterial Needle Display NIPRO, TULIP, 15 G x 1, SHARP , TWIN Venous Needle NIPRO, TULIP, 15G x 1, SHARP , TWIN Dialyzer Nipro Elisio 17H 145 5 [email or web address] Dialysate Bath Potassium Potassium 2 mEq /L Dialysate Bath Calcium Calcium 2.5 mEq/L In-Center Hemodialysis TreatmentNovember 28, 2024 Observation Value Target Weight 111.5 kg Dialysate Flow Rate 800 mL/min Blood Flow Rate 450 mL/min Treatment Time 210 min(total) Max UF Rate 13 mL/kg/hr Base Sodium Dialysate Base Sodium 138 mE q/L dialysate_temp 36.5 C BiCarb Dialysate BiCarbonate 35 mEq/L Access Concurrent No Arterial Access AV Fistula (Forearm (Left)) Venous Access AV Fistula (Forearm (Left)) Arterial Needle Display NIPRO, TULIP, 15 G x 1, SHARP , TWIN Venous Needle NIPRO, TULIP, 15G x 1, SHARP , TWIN Dialyzer Nipro Elisio 17H 145 5 [email or web address] Dialysate Bath Potassium Potassium 2 mEq /L Dialysate Bath Calcium Calcium 2.5 mEq/L Results Adequacy Description Draw Date Result/Unit Status Ref Range Result Comments URR% 2025-05-18 21:33:14 64 % F DIALYZER FLOW-QD 2025-05-18 21:33:14 800 mL/min F Dialyzer BERNA 2025-05-18 21:33:14 1455 Calc F LENGTH OF DIALYSIS 2025-05-18 21:33:14 210 min F BSA GABRIEL 2025-05-18 21:33:14 2.38 sq m F PATIENT AGE 2025-05-18 21:33:14 55 Years F WEIGHT - POST DAY 1 2025-05-18 21:33:14 112.4 kg F WEIGHT - PRE DAY 1 2025-05-18 21:33:14 116.3 kg F HEIGHT IN INCHES 2025-05-18 21:33:14 74 Inches F PRESCRIBED DAYS/WEEK 2025-05-18 21:33:14 3 Day/Wk F WEIGHT (KG) 2025-05-18 21:33:14 112 kg F VT (KT/V TX VOL) 2025-05-18 21:33:14 55.8 L F VM (KT/V MEAN VOL) 2025-05-18 21:33:14 50.7 F Residual kt/v 2025-05-18 21:33:14 F Unable to calculate: Post BUN lab result is unknown KT/V PRESCRIBED 2025-05-18 21:33:14 1.49 F Total Kt/V 2025-05-18 21:33:14 1.22 F nPCR 2025-05-18 21:33:14 1.07 G/KG/D F AMPUTATE FACTOR 2025-05-18 21:33:14 0 F TBW (Pearl) 2025-05-18 21:33:14 55.38 Liters F spKt/V 2025-05-18 21:33:14 1.22 F stdKt/V (DIAL) 2025-05-18 21:33:14 N/A F eKt/V 2025-05-18 21:33:14 1.04 F Std Renal KT/V 2025-05-18 21:33:14 N/A F stdKT/V Total 2025-05-18 21:33:14 N/A F TOTAL HOURS/WEEK DIALYSIS 2025-05-18 21:33:14 10 hrs F BLOOD FLOW-QWB 2025-05-18 21:33:14 449 F CURRENT KRU 2025-05-18 21:33:14 F Unable to calculate: Post BUN lab result is unknown Urea nitrogen [Mass/volume] in Serum or Plasma --post dialysis 2025-05-18 21:31:18 22 mg/dL F 9.0-23.0 Urea nitrogen [Mass/volume] in Serum or Plasma 2025-05-18 19:27:15 61 mg/dL F 9.0-23.0 Creatinine [Mass/volume] in Serum or Plasma 2025-04-27 20:00:18 8.6 mg/dL F 0.7-1.3 Dialyzer BERNA 2025-04-14 06:25:11 1455 Calc F URR% 2025-04-14 06:25:11 69 % F DIALYZER FLOW-QD 2025-04-14 06:25:11 800 mL/min F LENGTH OF DIALYSIS 2025-04-14 06:25:11 210 min F PATIENT AGE 2025-04-14 06:25:11 54 Years F BSA GABRIEL 2025-04-14 06:25:11 2.37 sq m F WEIGHT - POST DAY 1 2025-04-14 06:25:11 111 kg F WEIGHT - PRE DAY 1 2025-04-14 06:25:11 114.3 kg F HEIGHT IN INCHES 2025-04-14 06:25:11 74 Inches F PRESCRIBED DAYS/WEEK 2025-04-14 06:25:11 3 Day/Wk F WEIGHT (KG) 2025-04-14 06:25:11 111.5 kg F VT (KT/V TX VOL) 2025-04-14 06:25:11 48.6 L F VM (KT/V MEAN VOL) 2025-04-14 06:25:11 49 F Residual kt/v 2025-04-14 06:25:11 F KT/V PRESCRIBED 2025-04-14 06:25:11 1.5 F Total Kt/V 2025-04-14 06:25:11 1.4 F nPCR 2025-04-14 06:25:11 1.21 G/KG/D F AMPUTATE FACTOR 2025-04-14 06:25:11 0 F TBW (Pearl) 2025-04-14 06:25:11 55 Liters F spKt/V 2025-04-14 06:25:11 1.4 F stdKt/V (DIAL) 2025-04-14 06:25:11 N/A F eKt/V 2025-04-14 06:25:11 1.19 F Std Renal KT/V 2025-04-14 06:25:11 N/A F stdKT/V Total 2025-04-14 06:25:11 N/A F TOTAL HOURS/WEEK DIALYSIS 2025-04-14 06:25:11 10 hrs F BLOOD FLOW-QWB 2025-04-14 06:25:11 449 F CURRENT KRU 2025-04-14 06:25:11 F DIALYZER FLOW-QD 2025-04-14 06:25:11 800 mL/min F nPCR 2025-04-14 06:25:11 1.21 G/KG/D F WEIGHT - POST DAY 1 2025-04-14 06:25:11 111 kg F TOTAL HOURS/WEEK DIALYSIS 2025-04-14 06:25:11 10 hrs F BLOOD FLOW-QWB 2025-04-14 06:25:11 449 F HEIGHT IN INCHES 2025-04-14 06:25:11 74 Inches F TBW (Pearl) 2025-04-14 06:25:11 55 Liters F VT (KT/V TX VOL) 2025-04-14 06:25:11 48.6 L F AMPUTATE FACTOR 2025-04-14 06:25:11 0 F CURRENT KRU 2025-04-14 06:25:11 F PRESCRIBED DAYS/WEEK 2025-04-14 06:25:11 3 Day/Wk F Total Kt/V 2025-04-14 06:25:11 1.4 F Residual kt/v 2025-04-14 06:25:11 F VM (KT/V MEAN VOL) 2025-04-14 06:25:11 49 F stdKt/V (DIAL) 2025-04-14 06:25:11 N/A F stdKT/V Total 2025-04-14 06:25:11 N/A F Dialyzer BERNA 2025-04-14 06:25:11 1455 Calc F Std Renal KT/V 2025-04-14 06:25:11 N/A F WEIGHT (KG) 2025-04-14 06:25:11 111.5 kg F BSA GABRIEL 2025-04-14 06:25:11 2.37 sq m F PATIENT AGE 2025-04-14 06:25:11 54 Years F spKt/V 2025-04-14 06:25:11 1.4 F WEIGHT - PRE DAY 1 2025-04-14 06:25:11 114.3 kg F URR% 2025-04-14 06:25:11 69 % F LENGTH OF DIALYSIS 2025-04-14 06:25:11 210 min F KT/V PRESCRIBED 2025-04-14 06:25:11 1.5 F eKt/V 2025-04-14 06:25:11 1.19 F Urea nitrogen [Mass/volume] in Serum or Plasma 2025-04-14 06:23:18 65 mg/dL F 9.0-23.0 Urea nitrogen [Mass/volume] in Serum or Plasma 2025-04-14 06:23:18 65 mg/dL F 9.0-23.0 Urea nitrogen [Mass/volume] in Serum or Plasma --post dialysis 2025-04-14 05:49:15 20 mg/dL F 9.0-23.0 Urea nitrogen [Mass/volume] in Serum or Plasma --post dialysis 2025-04-14 05:49:15 20 mg/dL F 9.0-23.0 Creatinine [Mass/volume] in Serum or Plasma 2025-03-30 13:00:14 7.17 mg/dL F 0.7-1.3 Creatinine [Mass/volume] in Serum or Plasma 2025-03-30 13:00:14 7.17 mg/dL F 0.7-1.3 LENGTH OF DIALYSIS 2025-03-16 21:43:52 210 min F stdKt/V (DIAL) 2025-03-16 21:43:52 N/A F Total Kt/V 2025-03-16 21:43:52 1.36 F URR% 2025-03-16 21:43:52 69 % F WEIGHT - PRE DAY 1 2025-03-16 21:43:52 114.8 kg F Dialyzer BERNA 2025-03-16 21:43:52 1455 Calc F TOTAL HOURS/WEEK DIALYSIS 2025-03-16 21:43:52 10 hrs F BSA GABRIEL 2025-03-16 21:43:52 2.37 sq m F VM (KT/V MEAN VOL) 2025-03-16 21:43:52 49.2 F WEIGHT - POST DAY 1 2025-03-16 21:43:52 112 kg F AMPUTATE FACTOR 2025-03-16 21:43:52 0 F PATIENT AGE 2025-03-16 21:43:52 54 Years F TBW (Pearl) 2025-03-16 21:43:52 55.34 Liters F CURRENT KRU 2025-03-16 21:43:52 F Unable to calculate: Post BUN lab result is unknown stdKT/V Total 2025-03-16 21:43:52 N/A F nPCR 2025-03-16 21:43:52 1.22 G/KG/D F HEIGHT IN INCHES 2025-03-16 21:43:52 74 Inches F PRESCRIBED DAYS/WEEK 2025-03-16 21:43:52 3 Day/Wk F VT (KT/V TX VOL) 2025-03-16 21:43:52 49.7 L F KT/V PRESCRIBED 2025-03-16 21:43:52 1.5 F DIALYZER FLOW-QD 2025-03-16 21:43:52 800 mL/min F BLOOD FLOW-QWB 2025-03-16 21:43:52 443 F Std Renal KT/V 2025-03-16 21:43:52 N/A F spKt/V 2025-03-16 21:43:52 1.36 F Residual kt/v 2025-03-16 21:43:52 F Unable to calculate: Post BUN lab result is unknown eKt/V 2025-03-16 21:43:52 1.16 F WEIGHT (KG) 2025-03-16 21:43:52 111.5 kg F stdKt/V (DIAL) 2025-03-16 21:43:52 N/A F WEIGHT - PRE DAY 1 2025-03-16 21:43:52 114.8 kg F VM (KT/V MEAN VOL) 2025-03-16 21:43:52 49.2 F Total Kt/V 2025-03-16 21:43:52 1.36 F BSA GABRIEL 2025-03-16 21:43:52 2.37 sq m F TBW (Pearl) 2025-03-16 21:43:52 55.34 Liters F Dialyzer BERNA 2025-03-16 21:43:52 1455 Calc F KT/V PRESCRIBED 2025-03-16 21:43:52 1.5 F WEIGHT (KG) 2025-03-16 21:43:52 111.5 kg F PRESCRIBED DAYS/WEEK 2025-03-16 21:43:52 3 Day/Wk F DIALYZER FLOW-QD 2025-03-16 21:43:52 800 mL/min F spKt/V 2025-03-16 21:43:52 1.36 F eKt/V 2025-03-16 21:43:52 1.16 F URR% 2025-03-16 21:43:52 69 % F LENGTH OF DIALYSIS 2025-03-16 21:43:52 210 min F HEIGHT IN INCHES 2025-03-16 21:43:52 74 Inches F AMPUTATE FACTOR 2025-03-16 21:43:52 0 F stdKT/V Total 2025-03-16 21:43:52 N/A F PATIENT AGE 2025-03-16 21:43:52 54 Years F TOTAL HOURS/WEEK DIALYSIS 2025-03-16 21:43:52 10 hrs F CURRENT KRU 2025-03-16 21:43:52 F Unable to calculate: Post BUN lab result is unknown nPCR 2025-03-16 21:43:52 1.22 G/KG/D F VT (KT/V TX VOL) 2025-03-16 21:43:52 49.7 L F WEIGHT - POST DAY 1 2025-03-16 21:43:52 112 kg F BLOOD FLOW-QWB 2025-03-16 21:43:52 443 F Std Renal KT/V 2025-03-16 21:43:52 N/A F Residual kt/v 2025-03-16 21:43:52 F Unable to calculate: Post BUN lab result is unknown Urea nitrogen [Mass/volume] in Serum or Plasma --post dialysis 2025-03-16 21:42:25 21 mg/dL F 9.0-23.0 Urea nitrogen [Mass/volume] in Serum or Plasma --post dialysis 2025-03-16 21:42:25 21 mg/dL F 9.0-23.0 Urea nitrogen [Mass/volume] in Serum or Plasma 2025-03-16 21:05:23 67 mg/dL F 9.0-23.0 Urea nitrogen [Mass/volume] in Serum or Plasma 2025-03-16 21:05:23 67 mg/dL F 9.0-23.0 Creatinine [Mass/volume] in Serum or Plasma 2025-03-02 13:48:21 7.9 mg/dL F 0.7-1.3 Creatinine [Mass/volume] in Serum or Plasma 2025-03-02 13:48:21 7.9 mg/dL F 0.7-1.3 LENGTH OF DIALYSIS 2025-02-28 18:14:13 212 min F BSA GABRIEL 2025-02-28 18:14:13 2.37 sq m F PATIENT AGE 2025-02-28 18:14:13 54 Years F PRESCRIBED DAYS/WEEK 2025-02-28 18:14:13 3 Day/Wk F KT/V PRESCRIBED 2025-02-28 18:14:13 1.51 F nPCR 2025-02-28 18:14:13 1.2 G/KG/D F eKt/V 2025-02-28 18:14:13 1.16 F AMPUTATE FACTOR 2025-02-28 18:14:13 0 F stdKt/V (DIAL) 2025-02-28 18:14:13 N/A F TOTAL HOURS/WEEK DIALYSIS 2025-02-28 18:14:13 9 hrs F CURRENT KRU 2025-02-28 18:14:13 F Unable to calculate: Post BUN lab result is unknown URR% 2025-02-28 18:14:13 69 % F DIALYZER FLOW-QD 2025-02-28 18:14:13 800 mL/min F WEIGHT - POST DAY 1 2025-02-28 18:14:13 111.3 kg F Dialyzer BERNA 2025-02-28 18:14:13 1455 Calc F WEIGHT - PRE DAY 1 2025-02-28 18:14:13 114.8 kg F HEIGHT IN INCHES 2025-02-28 18:14:13 74 Inches F WEIGHT (KG) 2025-02-28 18:14:13 111.5 kg F VM (KT/V MEAN VOL) 2025-02-28 18:14:13 49 F VT (KT/V TX VOL) 2025-02-28 18:14:13 49.7 L F Residual kt/v 2025-02-28 18:14:13 F Unable to calculate: Post BUN lab result is unknown Total Kt/V 2025-02-28 18:14:13 1.36 F TBW ([employer]) 2025-02-28 18:14:13 55.1 Liters F Std Renal KT/V 2025-02-28 18:14:13 N/A F spKt/V 2025-02-28 18:14:13 1.36 F stdKT/V Total 2025-02-28 18:14:13 N/A F BLOOD FLOW-QWB 2025-02-28 18:14:13 437 F BLOOD FLOW-QWB 2025-02-28 18:14:13 437 F CURRENT KRU 2025-02-28 18:14:13 F Unable to calculate: Post BUN lab result is unknown Dialyzer BERNA 2025-02-28 18:14:13 1455 Calc F TBW ([employer]) 2025-02-28 18:14:13 55.1 Liters F Residual kt/v 2025-02-28 18:14:13 F Unable to calculate: Post BUN lab result is unknown Std Renal KT/V 2025-02-28 18:14:13 N/A F WEIGHT (KG) 2025-02-28 18:14:13 111.5 kg F KT/V PRESCRIBED 2025-02-28 18:14:13 1.51 F PATIENT AGE 2025-02-28 18:14:13 54 Years F URR% 2025-02-28 18:14:13 69 % F PRESCRIBED DAYS/WEEK 2025-02-28 18:14:13 3 Day/Wk F TOTAL HOURS/WEEK DIALYSIS 2025-02-28 18:14:13 9 hrs F VM (KT/V MEAN VOL) 2025-02-28 18:14:13 49 F WEIGHT - PRE DAY 1 2025-02-28 18:14:13 114.8 kg F Total Kt/V 2025-02-28 18:14:13 1.36 F stdKT/V Total 2025-02-28 18:14:13 N/A F WEIGHT - POST DAY 1 2025-02-28 18:14:13 111.3 kg F spKt/V 2025-02-28 18:14:13 1.36 F LENGTH OF DIALYSIS 2025-02-28 18:14:13 212 min F eKt/V 2025-02-28 18:14:13 1.16 F nPCR 2025-02-28 18:14:13 1.2 G/KG/D F HEIGHT IN INCHES 2025-02-28 18:14:13 74 Inches F stdKt/V (DIAL) 2025-02-28 18:14:13 N/A F BSA GABRIEL 2025-02-28 18:14:13 2.37 sq m F VT (KT/V TX VOL) 2025-02-28 18:14:13 49.7 L F DIALYZER FLOW-QD 2025-02-28 18:14:13 800 mL/min F AMPUTATE FACTOR 2025-02-28 18:14:13 0 F Urea nitrogen [Mass/volume] in Serum or Plasma --post dialysis 2025-02-28 18:12:18 26 mg/dL F 9.0-23.0 Urea nitrogen [Mass/volume] in Serum or Plasma --post dialysis 2025-02-28 18:12:18 26 mg/dL F 9.0-23.0 Urea nitrogen [Mass/volume] in Serum or Plasma 2025-02-28 15:52:16 83 mg/dL F 9.0-23.0 Urea nitrogen [Mass/volume] in Serum or Plasma 2025-02-28 15:52:16 83 mg/dL F 9.0-23.0 URR% 2025-02-16 14:58:11 61 % F DIALYZER FLOW-QD 2025-02-16 14:58:11 800 mL/min F Dialyzer BERNA 2025-02-16 14:58:11 1455 Calc F PATIENT AGE 2025-02-16 14:58:11 54 Years F BSA GABRIEL 2025-02-16 14:58:11 2.37 sq m F WEIGHT - PRE DAY 1 2025-02-16 14:58:11 113.9 kg F WEIGHT (KG) 2025-02-16 14:58:11 111.5 kg F PRESCRIBED DAYS/WEEK 2025-02-16 14:58:11 3 Day/Wk F nPCR 2025-02-16 14:58:11 1.13 G/KG/D F TBW ([facility]) 2025-02-16 14:58:11 55.58 Liters F KT/V PRESCRIBED 2025-02-16 14:58:11 1.5 F spKt/V 2025-02-16 14:58:11 1.07 F eKt/V 2025-02-16 14:58:11 0.93 F stdKT/V Total 2025-02-16 14:58:11 N/A F LENGTH OF DIALYSIS 2025-02-16 14:58:11 211 min F WEIGHT - POST DAY 1 2025-02-16 14:58:11 112.7 kg F HEIGHT IN INCHES 2025-02-16 14:58:11 74 Inches F VT (KT/V TX VOL) 2025-02-16 14:58:11 48.9 L F VM (KT/V MEAN VOL) 2025-02-16 14:58:11 48.8 F Residual kt/v 2025-02-16 14:58:11 F Total Kt/V 2025-02-16 14:58:11 1.07 F AMPUTATE FACTOR 2025-02-16 14:58:11 0 F TOTAL HOURS/WEEK DIALYSIS 2025-02-16 14:58:11 9 hrs F Std Renal KT/V 2025-02-16 14:58:11 N/A F stdKt/V (DIAL) 2025-02-16 14:58:11 N/A F BLOOD FLOW-QWB 2025-02-16 14:58:11 300 F CURRENT KRU 2025-02-16 14:58:11 F CURRENT KRU 2025-02-16 14:58:11 F VT (KT/V TX VOL) 2025-02-16 14:58:11 48.9 L F WEIGHT (KG) 2025-02-16 14:58:11 111.5 kg F KT/V PRESCRIBED 2025-02-16 14:58:11 1.5 F WEIGHT - PRE DAY 1 2025-02-16 14:58:11 113.9 kg F TBW ([facility]) 2025-02-16 14:58:11 55.58 Liters F LENGTH OF DIALYSIS 2025-02-16 14:58:11 211 min F WEIGHT - POST DAY 1 2025-02-16 14:58:11 112.7 kg F AMPUTATE FACTOR 2025-02-16 14:58:11 0 F BLOOD FLOW-QWB 2025-02-16 14:58:11 300 F stdKT/V Total 2025-02-16 14:58:11 N/A F HEIGHT IN INCHES 2025-02-16 14:58:11 74 Inches F TOTAL HOURS/WEEK DIALYSIS 2025-02-16 14:58:11 9 hrs F stdKt/V (DIAL) 2025-02-16 14:58:11 N/A F Std Renal KT/V 2025-02-16 14:58:11 N/A F VM (KT/V MEAN VOL) 2025-02-16 14:58:11 48.8 F PATIENT AGE 2025-02-16 14:58:11 54 Years F nPCR 2025-02-16 14:58:11 1.13 G/KG/D F Dialyzer BERNA 2025-02-16 14:58:11 1455 Calc F spKt/V 2025-02-16 14:58:11 1.07 F Residual kt/v 2025-02-16 14:58:11 F BSA GABRIEL 2025-02-16 14:58:11 2.37 sq m F eKt/V 2025-02-16 14:58:11 0.93 F URR% 2025-02-16 14:58:11 61 % F PRESCRIBED DAYS/WEEK 2025-02-16 14:58:11 3 Day/Wk F DIALYZER FLOW-QD 2025-02-16 14:58:11 800 mL/min F Total Kt/V 2025-02-16 14:58:11 1.07 F WEIGHT - PRE DAY 1 2025-02-16 14:58:11 113.9 kg F TBW ([facility]) 2025-02-16 14:58:11 55.58 Liters F KT/V PRESCRIBED 2025-02-16 14:58:11 1.5 F VT (KT/V TX VOL) 2025-02-16 14:58:11 48.9 L F CURRENT KRU 2025-02-16 14:58:11 F WEIGHT (KG) 2025-02-16 14:58:11 111.5 kg F spKt/V 2025-02-16 14:58:11 1.07 F PRESCRIBED DAYS/WEEK 2025-02-16 14:58:11 3 Day/Wk F stdKt/V (DIAL) 2025-02-16 14:58:11 N/A F Std Renal KT/V 2025-02-16 14:58:11 N/A F Residual kt/v 2025-02-16 14:58:11 F stdKT/V Total 2025-02-16 14:58:11 N/A F eKt/V 2025-02-16 14:58:11 0.93 F BSA GABRIEL 2025-02-16 14:58:11 2.37 sq m F Dialyzer BERNA 2025-02-16 14:58:11 1455 Calc F AMPUTATE FACTOR 2025-02-16 14:58:11 0 F PATIENT AGE 2025-02-16 14:58:11 54 Years F URR% 2025-02-16 14:58:11 61 % F nPCR 2025-02-16 14:58:11 1.13 G/KG/D F BLOOD FLOW-QWB 2025-02-16 14:58:11 300 F VM (KT/V MEAN VOL) 2025-02-16 14:58:11 48.8 F LENGTH OF DIALYSIS 2025-02-16 14:58:11 211 min F HEIGHT IN INCHES 2025-02-16 14:58:11 74 Inches F WEIGHT - POST DAY 1 2025-02-16 14:58:11 112.7 kg F TOTAL HOURS/WEEK DIALYSIS 2025-02-16 14:58:11 9 hrs F DIALYZER FLOW-QD 2025-02-16 14:58:11 800 mL/min F Total Kt/V 2025-02-16 14:58:11 1.07 F Urea nitrogen [Mass/volume] in Serum or Plasma 2025-02-16 14:56:18 70 mg/dL F 9.0-23.0 Urea nitrogen [Mass/volume] in Serum or Plasma 2025-02-16 14:56:18 70 mg/dL F 9.0-23.0 Urea nitrogen [Mass/volume] in Serum or Plasma 2025-02-16 14:56:18 70 mg/dL F 9.0-23.0 Urea nitrogen [Mass/volume] in Serum or Plasma --post dialysis 2025-02-16 14:12:26 27 mg/dL F 9.0-23.0 Urea nitrogen [Mass/volume] in Serum or Plasma --post dialysis 2025-02-16 14:12:26 27 mg/dL F 9.0-23.0 Urea nitrogen [Mass/volume] in Serum or Plasma --post dialysis 2025-02-16 14:12:26 27 mg/dL F 9.0-23.0 Creatinine [Mass/volume] in Serum or Plasma 2025-01-31 16:42:26 7.17 mg/dL F 0.7-1.3 Creatinine [Mass/volume] in Serum or Plasma 2025-01-31 16:42:26 7.17 mg/dL F 0.7-1.3 Creatinine [Mass/volume] in Serum or Plasma 2025-01-31 16:42:26 7.17 mg/dL F 0.7-1.3 VT (KT/V TX VOL) 2025-01-24 20:30:51 48.6 L F VM (KT/V MEAN VOL) 2025-01-24 20:30:51 48.7 F KT/V PRESCRIBED 2025-01-24 20:30:51 1.49 F Total Kt/V 2025-01-24 20:30:51 1.39 F CURRENT KRU 2025-01-24 20:30:51 F URR% 2025-01-24 20:30:51 69 % F DIALYZER FLOW-QD 2025-01-24 20:30:51 800 mL/min F WEIGHT - POST DAY 1 2025-01-24 20:30:51 113.6 kg F PATIENT AGE 2025-01-24 20:30:51 54 Years F WEIGHT - PRE DAY 1 2025-01-24 20:30:51 117.7 kg F HEIGHT IN INCHES 2025-01-24 20:30:51 74 Inches F Residual kt/v 2025-01-24 20:30:51 F nPCR 2025-01-24 20:30:51 1.06 G/KG/D F TBW ([facility]) 2025-01-24 20:30:51 55.88 Liters F AMPUTATE FACTOR 2025-01-24 20:30:51 0 F spKt/V 2025-01-24 20:30:51 1.39 F eKt/V 2025-01-24 20:30:51 1.18 F stdKt/V (DIAL) 2025-01-24 20:30:51 N/A F stdKT/V Total 2025-01-24 20:30:51 N/A F Std Renal KT/V 2025-01-24 20:30:51 N/A F TOTAL HOURS/WEEK DIALYSIS 2025-01-24 20:30:51 10 hrs F BLOOD FLOW-QWB 2025-01-24 20:30:51 449 F stdKT/V Total 2025-01-24 20:30:51 N/A F URR% 2025-01-24 20:30:51 69 % F Std Renal KT/V 2025-01-24 20:30:51 N/A F PATIENT AGE 2025-01-24 20:30:51 54 Years F HEIGHT IN INCHES 2025-01-24 20:30:51 74 Inches F stdKt/V (DIAL) 2025-01-24 20:30:51 N/A F BLOOD FLOW-QWB 2025-01-24 20:30:51 449 F CURRENT KRU 2025-01-24 20:30:51 F eKt/V 2025-01-24 20:30:51 1.18 F WEIGHT - POST DAY 1 2025-01-24 20:30:51 113.6 kg F VT (KT/V TX VOL) 2025-01-24 20:30:51 48.6 L F nPCR 2025-01-24 20:30:51 1.06 G/KG/D F Dialyzer BERNA 2025-01-24 20:30:51 1455 Calc F spKt/V 2025-01-24 20:30:51 1.39 F Total Kt/V 2025-01-24 20:30:51 1.39 F VM (KT/V MEAN VOL) 2025-01-24 20:30:51 48.7 F WEIGHT (KG) 2025-01-24 20:30:51 111.5 kg F BSA GABRIEL 2025-01-24 20:30:51 2.37 sq m F LENGTH OF DIALYSIS 2025-01-24 20:30:51 209 min F AMPUTATE FACTOR 2025-01-24 20:30:51 0 F PRESCRIBED DAYS/WEEK 2025-01-24 20:30:51 3 Day/Wk F KT/V PRESCRIBED 2025-01-24 20:30:51 1.49 F Residual kt/v 2025-01-24 20:30:51 F WEIGHT - PRE DAY 1 2025-01-24 20:30:51 117.7 kg F TOTAL HOURS/WEEK DIALYSIS 2025-01-24 20:30:51 10 hrs F DIALYZER FLOW-QD 2025-01-24 20:30:51 800 mL/min F TBW ([facility]) 2025-01-24 20:30:51 55.88 Liters F BLOOD FLOW-QWB 2025-01-24 20:30:51 449 F URR% 2025-01-24 20:30:51 69 % F Std Renal KT/V 2025-01-24 20:30:51 N/A F Total Kt/V 2025-01-24 20:30:51 1.39 F nPCR 2025-01-24 20:30:51 1.06 G/KG/D F HEIGHT IN INCHES 2025-01-24 20:30:51 74 Inches F Dialyzer BERNA 2025-01-24 20:30:51 1455 Calc F WEIGHT - POST DAY 1 2025-01-24 20:30:51 113.6 kg F CURRENT KRU 2025-01-24 20:30:51 F eKt/V 2025-01-24 20:30:51 1.18 F stdKt/V (DIAL) 2025-01-24 20:30:51 N/A F PATIENT AGE 2025-01-24 20:30:51 54 Years F stdKT/V Total 2025-01-24 20:30:51 N/A F VT (KT/V TX VOL) 2025-01-24 20:30:51 48.6 L F LENGTH OF DIALYSIS 2025-01-24 20:30:51 209 min F PRESCRIBED DAYS/WEEK 2025-01-24 20:30:51 3 Day/Wk F TOTAL HOURS/WEEK DIALYSIS 2025-01-24 20:30:51 10 hrs F KT/V PRESCRIBED 2025-01-24 20:30:51 1.49 F DIALYZER FLOW-QD 2025-01-24 20:30:51 800 mL/min F TBW ([facility]) 2025-01-24 20:30:51 55.88 Liters F AMPUTATE FACTOR 2025-01-24 20:30:51 0 F Residual kt/v 2025-01-24 20:30:51 F WEIGHT - PRE DAY 1 2025-01-24 20:30:51 117.7 kg F BSA GABRIEL 2025-01-24 20:30:51 2.37 sq m F WEIGHT (KG) 2025-01-24 20:30:51 111.5 kg F VM (KT/V MEAN VOL) 2025-01-24 20:30:51 48.7 F spKt/V 2025-01-24 20:30:51 1.39 F Dialyzer BERNA 2025-01-24 20:30:51 1455 Calc F LENGTH OF DIALYSIS 2025-01-24 20:30:51 209 min F BSA GABRIEL 2025-01-24 20:30:51 2.37 sq m F WEIGHT (KG) 2025-01-24 20:30:51 111.5 kg F PRESCRIBED DAYS/WEEK 2025-01-24 20:30:51 3 Day/Wk F Urea nitrogen [Mass/volume] in Serum or Plasma 2025-01-24 20:29:21 71 mg/dL F 9.0-23.0 Urea nitrogen [Mass/volume] in Serum or Plasma 2025-01-24 20:29:21 71 mg/dL F 9.0-23.0 Urea nitrogen [Mass/volume] in Serum or Plasma 2025-01-24 20:29:21 71 mg/dL F 9.0-23.0 Urea nitrogen [Mass/volume] in Serum or Plasma --post dialysis 2025-01-24 16:32:20 22 mg/dL F 9.0-23.0 Urea nitrogen [Mass/volume] in Serum or Plasma --post dialysis 2025-01-24 16:32:20 22 mg/dL F 9.0-23.0 Urea nitrogen [Mass/volume] in Serum or Plasma --post dialysis 2025-01-24 16:32:20 22 mg/dL F 9.0-23.0 URR% 2025-01-12 17:47:14 55 % F DIALYZER FLOW-QD 2025-01-12 17:47:14 800 mL/min F LENGTH OF DIALYSIS 2025-01-12 17:47:14 100 min F PATIENT AGE 2025-01-12 17:47:14 54 Years F WEIGHT - POST DAY 1 2025-01-12 17:47:14 113 kg F WEIGHT - PRE DAY 1 2025-01-12 17:47:14 114.4 kg F HEIGHT IN INCHES 2025-01-12 17:47:14 74 Inches F WEIGHT (KG) 2025-01-12 17:47:14 111.5 kg F AMPUTATE FACTOR 2025-01-12 17:47:14 0 F Total Kt/V 2025-01-12 17:47:14 0.9 F TOTAL HOURS/WEEK DIALYSIS 2025-01-12 17:47:14 8 hrs F BSA GABRIEL 2025-01-12 17:47:14 2.37 sq m F Dialyzer BERNA 2025-01-12 17:47:14 1455 Calc F PRESCRIBED DAYS/WEEK 2025-01-12 17:47:14 3 Day/Wk F VT (KT/V TX VOL) 2025-01-12 17:47:14 36 L F VM (KT/V MEAN VOL) 2025-01-12 17:47:14 48.7 F Residual kt/v 2025-01-12 17:47:14 F KT/V PRESCRIBED 2025-01-12 17:47:14 0.71 F nPCR 2025-01-12 17:47:14 1.15 G/KG/D F TBW ([facility]) 2025-01-12 17:47:14 55.68 Liters F eKt/V 2025-01-12 17:47:14 0.67 F spKt/V 2025-01-12 17:47:14 0.9 F stdKt/V (DIAL) 2025-01-12 17:47:14 N/A F Std Renal KT/V 2025-01-12 17:47:14 N/A F stdKT/V Total 2025-01-12 17:47:14 N/A F BLOOD FLOW-QWB 2025-01-12 17:47:14 449 F CURRENT KRU 2025-01-12 17:47:14 F PATIENT AGE 2025-01-12 17:47:14 54 Years F LENGTH OF DIALYSIS 2025-01-12 17:47:14 100 min F HEIGHT IN INCHES 2025-01-12 17:47:14 74 Inches F spKt/V 2025-01-12 17:47:14 0.9 F Total Kt/V 2025-01-12 17:47:14 0.9 F Dialyzer BERNA 2025-01-12 17:47:14 1455 Calc F VM (KT/V MEAN VOL) 2025-01-12 17:47:14 48.7 F nPCR 2025-01-12 17:47:14 1.15 G/KG/D F stdKt/V (DIAL) 2025-01-12 17:47:14 N/A F PRESCRIBED DAYS/WEEK 2025-01-12 17:47:14 3 Day/Wk F Residual kt/v 2025-01-12 17:47:14 F VT (KT/V TX VOL) 2025-01-12 17:47:14 36 L F WEIGHT (KG) 2025-01-12 17:47:14 111.5 kg F BSA GABRIEL 2025-01-12 17:47:14 2.37 sq m F TOTAL HOURS/WEEK DIALYSIS 2025-01-12 17:47:14 8 hrs F URR% 2025-01-12 17:47:14 55 % F stdKT/V Total 2025-01-12 17:47:14 N/A F AMPUTATE FACTOR 2025-01-12 17:47:14 0 F CURRENT KRU 2025-01-12 17:47:14 F WEIGHT - POST DAY 1 2025-01-12 17:47:14 113 kg F Std Renal KT/V 2025-01-12 17:47:14 N/A F KT/V PRESCRIBED 2025-01-12 17:47:14 0.71 F DIALYZER FLOW-QD 2025-01-12 17:47:14 800 mL/min F BLOOD FLOW-QWB 2025-01-12 17:47:14 449 F WEIGHT - PRE DAY 1 2025-01-12 17:47:14 114.4 kg F TBW (Dae) 2025-01-12 17:47:14 55.68 Liters F eKt/V 2025-01-12 17:47:14 0.67 F Urea nitrogen [Mass/volume] in Serum or Plasma 2025-01-12 17:45:21 74 mg/dL F 9.0-23.0 Urea nitrogen [Mass/volume] in Serum or Plasma 2025-01-12 17:45:21 74 mg/dL F 9.0-23.0 Urea nitrogen [Mass/volume] in Serum or Plasma --post dialysis 2025-01-12 17:42:17 33 mg/dL F 9.0-23.0 Urea nitrogen [Mass/volume] in Serum or Plasma --post dialysis 2025-01-12 17:42:17 33 mg/dL F 9.0-23.0 LENGTH OF DIALYSIS 2024-12-15 13:53:07 210 min F Dialyzer BERNA 2024-12-15 13:53:07 1455 Calc F WEIGHT - PRE DAY 1 2024-12-15 13:53:07 114.6 kg F VT (KT/V TX VOL) 2024-12-15 13:53:07 52.6 L F PATIENT AGE 2024-12-15 13:53:07 54 Years F Residual kt/v 2024-12-15 13:53:07 F KT/V PRESCRIBED 2024-12-15 13:53:07 1.5 F nPCR 2024-12-15 13:53:07 1.07 G/KG/D F AMPUTATE FACTOR 2024-12-15 13:53:07 0 F TBW (Dae) 2024-12-15 13:53:07 55 Liters F Std Renal KT/V 2024-12-15 13:53:07 N/A F stdKT/V Total 2024-12-15 13:53:07 N/A F BLOOD FLOW-QWB 2024-12-15 13:53:07 404 F URR% 2024-12-15 13:53:07 64 % F DIALYZER FLOW-QD 2024-12-15 13:53:07 800 mL/min F BSA GABRIEL 2024-12-15 13:53:07 2.37 sq m F WEIGHT - POST DAY 1 2024-12-15 13:53:07 111 kg F HEIGHT IN INCHES 2024-12-15 13:53:07 74 Inches F WEIGHT (KG) 2024-12-15 13:53:07 111.5 kg F PRESCRIBED DAYS/WEEK 2024-12-15 13:53:07 3 Day/Wk F VM (KT/V MEAN VOL) 2024-12-15 13:53:07 48.7 F Total Kt/V 2024-12-15 13:53:07 1.21 F eKt/V 2024-12-15 13:53:07 1.04 F spKt/V 2024-12-15 13:53:07 1.21 F stdKt/V (DIAL) 2024-12-15 13:53:07 N/A F TOTAL HOURS/WEEK DIALYSIS 2024-12-15 13:53:07 10 hrs F CURRENT KRU 2024-12-15 13:53:07 F BSA GABRIEL 2024-12-15 13:53:07 2.37 sq m F TOTAL HOURS/WEEK DIALYSIS 2024-12-15 13:53:07 10 hrs F HEIGHT IN INCHES 2024-12-15 13:53:07 74 Inches F WEIGHT - PRE DAY 1 2024-12-15 13:53:07 114.6 kg F AMPUTATE FACTOR 2024-12-15 13:53:07 0 F eKt/V 2024-12-15 13:53:07 1.04 F nPCR 2024-12-15 13:53:07 1.07 G/KG/D F WEIGHT - POST DAY 1 2024-12-15 13:53:07 111 kg F VM (KT/V MEAN VOL) 2024-12-15 13:53:07 48.7 F KT/V PRESCRIBED 2024-12-15 13:53:07 1.5 F Std Renal KT/V 2024-12-15 13:53:07 N/A F WEIGHT (KG) 2024-12-15 13:53:07 111.5 kg F URR% 2024-12-15 13:53:07 64 % F VT (KT/V TX VOL) 2024-12-15 13:53:07 52.6 L F stdKt/V (DIAL) 2024-12-15 13:53:07 N/A F PRESCRIBED DAYS/WEEK 2024-12-15 13:53:07 3 Day/Wk F LENGTH OF DIALYSIS 2024-12-15 13:53:07 210 min F CURRENT KRU 2024-12-15 13:53:07 F spKt/V 2024-12-15 13:53:07 1.21 F PATIENT AGE 2024-12-15 13:53:07 54 Years F BLOOD FLOW-QWB 2024-12-15 13:53:07 404 F Dialyzer BERNA 2024-12-15 13:53:07 1455 Calc F stdKT/V Total 2024-12-15 13:53:07 N/A F DIALYZER FLOW-QD 2024-12-15 13:53:07 800 mL/min F TBW (Pearl) 2024-12-15 13:53:07 55 Liters F Residual kt/v 2024-12-15 13:53:07 F Total Kt/V 2024-12-15 13:53:07 1.21 F Urea nitrogen [Mass/volume] in Serum or Plasma 2024-12-15 13:51:18 61 mg/dL F 9.0-23.0 Creatinine [Mass/volume] in Serum or Plasma 2024-12-15 13:51:18 6.82 mg/dL F 0.7-1.3 Creatinine [Mass/volume] in Serum or Plasma 2024-12-15 13:51:18 6.82 mg/dL F 0.7-1.3 Urea nitrogen [Mass/volume] in Serum or Plasma 2024-12-15 13:51:18 61 mg/dL F 9.0-23.0 Urea nitrogen [Mass/volume] in Serum or Plasma --post dialysis 2024-12-15 13:50:25 22 mg/dL F 9.0-23.0 Urea nitrogen [Mass/volume] in Serum or Plasma --post dialysis 2024-12-15 13:50:25 22 mg/dL F 9.0-23.0 Anemia Description Draw Date Result/Unit Status Ref Range Result Comments HCT CALC HGBX3 2025-05-18 20:17:06 33.6 % F 42.0-52.0 Hemoglobin [Mass/volume] in Blood 2025-05-18 20:16:13 11.2 g/dL F 14.0-18.0 HCT CALC HGBX3 2025-04-27 19:40:24 34.5 % F 42.0-52.0 Erythrocyte distribution width [Ratio] by Automated count 2025-04-27 19:39:17 16.1 % F 11.0-15.0 Erythrocytes [#/volume] in Blood by Automated count 2025-04-27 19:39:17 4.32 x 10^6 cells/uL F 4.6-6.2 Hematocrit [Volume Fraction] of Blood by Automated count 2025-04-27 19:39:17 38 % F 41.0-53.0 Hemoglobin [Mass/volume] in Blood 2025-04-27 19:39:17 11.5 g/dL F 14.0-18.0 MCV [Entitic volume] by Automated count 2025-04-27 19:39:17 88 fL F 80.0-100.0 MCHC [Mass/volume] by Automated count 2025-04-27 19:39:17 30.3 g/dL F 29.6-35.3 MCH [Entitic mass] by Automated count 2025-04-27 19:39:17 26.6 pg F 25.9-34.2 Platelets [#/volume] in Blood by Automated count 2025-04-27 19:39:17 227 x 10^3 cells/uL F 140.0-450.0 HCT CALC HGBX3 2025-04-14 00:09:17 33.3 % F 42.0-52.0 HCT CALC HGBX3 2025-04-14 00:09:17 33.3 % F 42.0-52.0 Hemoglobin [Mass/volume] in Blood 2025-04-14 00:08:15 11.1 g/dL F 14.0-18.0 Hemoglobin [Mass/volume] in Blood 2025-04-14 00:08:15 11.1 g/dL F 14.0-18.0 IRON SATURATION 2025-03-31 06:16:26 24 % F 21.0-49.0 TIBC 2025-03-31 06:16:26 227 ug/dL F 250.0-425.0 IRON SATURATION 2025-03-31 06:16:26 24 % F 21.0-49.0 TIBC 2025-03-31 06:16:26 227 ug/dL F 250.0-425.0 Iron [Mass/volume] in Serum or Plasma 2025-03-31 05:52:16 54 ug/dL F 65.0-175.0 Iron [Mass/volume] in Serum or Plasma 2025-03-31 05:52:16 54 ug/dL F 65.0-175.0 Iron binding capacity.unsaturated [Mass/volume] in Serum or Plasma 2025-03-31 05:52:14 173 ug/dL F 75.0-360.0 Iron binding capacity.unsaturated [Mass/volume] in Serum or Plasma 2025-03-31 05:52:14 173 ug/dL F 75.0-360.0 Ferritin [Mass/volume] in Serum or Plasma 2025-03-30 13:27:25 595 ng/mL F 22.0-322.0 Ferritin [Mass/volume] in Serum or Plasma 2025-03-30 13:27:25 595 ng/mL F 22.0-322.0 HCT CALC HGBX3 2025-03-30 12:39:43 34.5 % F 42.0-52.0 HCT CALC HGBX3 2025-03-30 12:39:43 34.5 % F 42.0-52.0 Erythrocyte distribution width [Ratio] by Automated count 2025-03-30 12:39:07 15.7 % F 11.0-15.0 Hemoglobin [Mass/volume] in Blood 2025-03-30 12:39:07 11.5 g/dL F 14.0-18.0 Platelets [#/volume] in Blood by Automated count 2025-03-30 12:39:07 202 x 10^3 cells/uL F 140.0-450.0 MCH [Entitic mass] by Automated count 2025-03-30 12:39:07 27.2 pg F 25.9-34.2 MCHC [Mass/volume] by Automated count 2025-03-30 12:39:07 31.6 g/dL F 29.6-35.3 Erythrocytes [#/volume] in Blood by Automated count 2025-03-30 12:39:07 4.22 x 10^6 cells/uL F 4.6-6.2 Hematocrit [Volume Fraction] of Blood by Automated count 2025-03-30 12:39:07 36.2 % F 41.0-53.0 MCV [Entitic volume] by Automated count 2025-03-30 12:39:07 86 fL F 80.0-100.0 Erythrocyte distribution width [Ratio] by Automated count 2025-03-30 12:39:07 15.7 % F 11.0-15.0 Erythrocytes [#/volume] in Blood by Automated count 2025-03-30 12:39:07 4.22 x 10^6 cells/uL F 4.6-6.2 Hemoglobin [Mass/volume] in Blood 2025-03-30 12:39:07 11.5 g/dL F 14.0-18.0 Hematocrit [Volume Fraction] of Blood by Automated count 2025-03-30 12:39:07 36.2 % F 41.0-53.0 MCV [Entitic volume] by Automated count 2025-03-30 12:39:07 86 fL F 80.0-100.0 MCHC [Mass/volume] by Automated count 2025-03-30 12:39:07 31.6 g/dL F 29.6-35.3 Platelets [#/volume] in Blood by Automated count 2025-03-30 12:39:07 202 x 10^3 cells/uL F 140.0-450.0 MCH [Entitic mass] by Automated count 2025-03-30 12:39:07 27.2 pg F 25.9-34.2 HCT CALC HGBX3 2025-03-16 22:54:35 31.8 % F 42.0-52.0 HCT CALC HGBX3 2025-03-16 22:54:35 31.8 % F 42.0-52.0 Hemoglobin [Mass/volume] in Blood 2025-03-16 22:53:10 10.6 g/dL F 14.0-18.0 Hemoglobin [Mass/volume] in Blood 2025-03-16 22:53:10 10.6 g/dL F 14.0-18.0 IRON SATURATION 2025-03-02 21:52:30 26 % F 21.0-49.0 TIBC 2025-03-02 21:52:30 231 ug/dL F 250.0-425.0 IRON SATURATION 2025-03-02 21:52:30 26 % F 21.0-49.0 TIBC 2025-03-02 21:52:30 231 ug/dL F 250.0-425.0 Iron binding capacity.unsaturated [Mass/volume] in Serum or Plasma 2025-03-02 21:45:48 171 ug/dL F 75.0-360.0 Iron [Mass/volume] in Serum or Plasma 2025-03-02 21:45:48 60 ug/dL F 65.0-175.0 Iron binding capacity.unsaturated [Mass/volume] in Serum or Plasma 2025-03-02 21:45:48 171 ug/dL F 75.0-360.0 Iron [Mass/volume] in Serum or Plasma 2025-03-02 21:45:48 60 ug/dL F 65.0-175.0 Ferritin [Mass/volume] in Serum or Plasma 2025-03-02 14:08:18 949 ng/mL F 22.0-322.0 Ferritin [Mass/volume] in Serum or Plasma 2025-03-02 14:08:18 949 ng/mL F 22.0-322.0 HCT CALC HGBX3 2025-03-02 14:08:13 33 % F 42.0-52.0 HCT CALC HGBX3 2025-03-02 14:08:13 33 % F 42.0-52.0 MCV [Entitic volume] by Automated count 2025-03-02 14:07:11 85.4 fL F 80.0-100.0 MCHC [Mass/volume] by Automated count 2025-03-02 14:07:11 32.3 g/dL F 29.6-35.3 MCH [Entitic mass] by Automated count 2025-03-02 14:07:11 27.6 pg F 25.9-34.2 MCHC [Mass/volume] by Automated count 2025-03-02 14:07:11 32.3 g/dL F 29.6-35.3 MCV [Entitic volume] by Automated count 2025-03-02 14:07:11 85.4 fL F 80.0-100.0 MCH [Entitic mass] by Automated count 2025-03-02 14:07:11 27.6 pg F 25.9-34.2 Hemoglobin [Mass/volume] in Blood 2025-03-02 14:07:09 11 g/dL F 14.0-18.0 Erythrocytes [#/volume] in Blood by Automated count 2025-03-02 14:07:09 4 x 10^6 cells/uL F 4.6-6.2 Erythrocyte distribution width [Ratio] by Automated count 2025-03-02 14:07:09 15.8 % F 11.0-15.0 Hematocrit [Volume Fraction] of Blood by Automated count 2025-03-02 14:07:09 34.1 % F 41.0-53.0 Platelets [#/volume] in Blood by Automated count 2025-03-02 14:07:09 218 x 10^3 cells/uL F 140.0-450.0 Hemoglobin [Mass/volume] in Blood 2025-03-02 14:07:09 11 g/dL F 14.0-18.0 Erythrocytes [#/volume] in Blood by Automated count 2025-03-02 14:07:09 4 x 10^6 cells/uL F 4.6-6.2 Platelets [#/volume] in Blood by Automated count 2025-03-02 14:07:09 218 x 10^3 cells/uL F 140.0-450.0 Erythrocyte distribution width [Ratio] by Automated count 2025-03-02 14:07:09 15.8 % F 11.0-15.0 Hematocrit [Volume Fraction] of Blood by Automated count 2025-03-02 14:07:09 34.1 % F 41.0-53.0 HCT CALC HGBX3 2025-02-16 14:05:03 30 % F 42.0-52.0 HCT CALC HGBX3 2025-02-16 14:05:03 30 % F 42.0-52.0 HCT CALC HGBX3 2025-02-16 14:05:03 30 % F 42.0-52.0 Hemoglobin [Mass/volume] in Blood 2025-02-16 14:04:10 10 g/dL F 14.0-18.0 Hemoglobin [Mass/volume] in Blood 2025-02-16 14:04:10 10 g/dL F 14.0-18.0 Hemoglobin [Mass/volume] in Blood 2025-02-16 14:04:10 10 g/dL F 14.0-18.0 IRON SATURATION 2025-02-01 01:18:37 25 % F 21.0-49.0 TIBC 2025-02-01 01:18:37 216 ug/dL F 250.0-425.0 IRON SATURATION 2025-02-01 01:18:37 25 % F 21.0-49.0 TIBC 2025-02-01 01:18:37 216 ug/dL F 250.0-425.0 IRON SATURATION 2025-02-01 01:18:37 25 % F 21.0-49.0 TIBC 2025-02-01 01:18:37 216 ug/dL F 250.0-425.0 Iron [Mass/volume] in Serum or Plasma 2025-02-01 01:17:00 53 ug/dL F 65.0-175.0 Iron binding capacity.unsaturated [Mass/volume] in Serum or Plasma 2025-02-01 01:17:00 163 ug/dL F 75.0-360.0 Iron [Mass/volume] in Serum or Plasma 2025-02-01 01:17:00 53 ug/dL F 65.0-175.0 Iron binding capacity.unsaturated [Mass/volume] in Serum or Plasma 2025-02-01 01:17:00 163 ug/dL F 75.0-360.0 Iron [Mass/volume] in Serum or Plasma 2025-02-01 01:17:00 53 ug/dL F 65.0-175.0 Iron binding capacity.unsaturated [Mass/volume] in Serum or Plasma 2025-02-01 01:17:00 163 ug/dL F 75.0-360.0 Ferritin [Mass/volume] in Serum or Plasma 2025-01-31 18:39:21 1501 ng/mL F 22.0-322.0 Ferritin [Mass/volume] in Serum or Plasma 2025-01-31 18:39:21 1501 ng/mL F 22.0-322.0 Ferritin [Mass/volume] in Serum or Plasma 2025-01-31 18:39:21 1501 ng/mL F 22.0-322.0 HCT CALC HGBX3 2025-01-31 18:08:18 29.7 % F 42.0-52.0 HCT CALC HGBX3 2025-01-31 18:08:18 29.7 % F 42.0-52.0 HCT CALC HGBX3 2025-01-31 18:08:18 29.7 % F 42.0-52.0 MCV [Entitic volume] by Automated count 2025-01-31 18:07:08 85.6 fL F 80.0-100.0 Erythrocyte distribution width [Ratio] by Automated count 2025-01-31 18:07:08 16.3 % F 11.0-15.0 MCHC [Mass/volume] by Automated count 2025-01-31 18:07:08 32.1 g/dL F 29.6-35.3 Erythrocytes [#/volume] in Blood by Automated count 2025-01-31 18:07:08 3.6 x 10^6 cells/uL F 4.6-6.2 Hemoglobin [Mass/volume] in Blood 2025-01-31 18:07:08 9.9 g/dL F 14.0-18.0 Hematocrit [Volume Fraction] of Blood by Automated count 2025-01-31 18:07:08 30.9 % F 41.0-53.0 MCH [Entitic mass] by Automated count 2025-01-31 18:07:08 27.5 pg F 25.9-34.2 Platelets [#/volume] in Blood by Automated count 2025-01-31 18:07:08 238 x 10^3 cells/uL F 140.0-450.0 Erythrocyte distribution width [Ratio] by Automated count 2025-01-31 18:07:08 16.3 % F 11.0-15.0 Hemoglobin [Mass/volume] in Blood 2025-01-31 18:07:08 9.9 g/dL F 14.0-18.0 Platelets [#/volume] in Blood by Automated count 2025-01-31 18:07:08 238 x 10^3 cells/uL F 140.0-450.0 MCH [Entitic mass] by Automated count 2025-01-31 18:07:08 27.5 pg F 25.9-34.2 MCHC [Mass/volume] by Automated count 2025-01-31 18:07:08 32.1 g/dL F 29.6-35.3 Erythrocytes [#/volume] in Blood by Automated count 2025-01-31 18:07:08 3.6 x 10^6 cells/uL F 4.6-6.2 Hematocrit [Volume Fraction] of Blood by Automated count 2025-01-31 18:07:08 30.9 % F 41.0-53.0 MCV [Entitic volume] by Automated count 2025-01-31 18:07:08 85.6 fL F 80.0-100.0 Erythrocyte distribution width [Ratio] by Automated count 2025-01-31 18:07:08 16.3 % F 11.0-15.0 Platelets [#/volume] in Blood by Automated count 2025-01-31 18:07:08 238 x 10^3 cells/uL F 140.0-450.0 Hemoglobin [Mass/volume] in Blood 2025-01-31 18:07:08 9.9 g/dL F 14.0-18.0 MCH [Entitic mass] by Automated count 2025-01-31 18:07:08 27.5 pg F 25.9-34.2 MCHC [Mass/volume] by Automated count 2025-01-31 18:07:08 32.1 g/dL F 29.6-35.3 Erythrocytes [#/volume] in Blood by Automated count 2025-01-31 18:07:08 3.6 x 10^6 cells/uL F 4.6-6.2 Hematocrit [Volume Fraction] of Blood by Automated count 2025-01-31 18:07:08 30.9 % F 41.0-53.0 MCV [Entitic volume] by Automated count 2025-01-31 18:07:08 85.6 fL F 80.0-100.0 IRON SATURATION 2025-01-13 07:29:53 21 % F 21.0-49.0 TIBC 2025-01-13 07:29:53 220 ug/dL F 250.0-425.0 IRON SATURATION 2025-01-13 07:29:53 21 % F 21.0-49.0 TIBC 2025-01-13 07:29:53 220 ug/dL F 250.0-425.0 Iron binding capacity.unsaturated [Mass/volume] in Serum or Plasma 2025-01-13 07:07:56 174 ug/dL F 75.0-360.0 Iron [Mass/volume] in Serum or Plasma 2025-01-13 07:07:56 46 ug/dL F 65.0-175.0 Iron [Mass/volume] in Serum or Plasma 2025-01-13 07:07:56 46 ug/dL F 65.0-175.0 Iron binding capacity.unsaturated [Mass/volume] in Serum or Plasma 2025-01-13 07:07:56 174 ug/dL F 75.0-360.0 HCT CALC HGBX3 2025-01-12 13:16:52 28.5 % F 42.0-52.0 HCT CALC HGBX3 2025-01-12 13:16:52 28.5 % F 42.0-52.0 Hemoglobin [Mass/volume] in Blood 2025-01-12 13:16:16 9.5 g/dL F 14.0-18.0 Hemoglobin [Mass/volume] in Blood 2025-01-12 13:16:16 9.5 g/dL F 14.0-18.0 Ferritin [Mass/volume] in Serum or Plasma 2025-01-05 17:39:12 1463 ng/mL F 22.0-322.0 Ferritin [Mass/volume] in Serum or Plasma 2025-01-05 17:39:12 1463 ng/mL F 22.0-322.0 Ferritin [Mass/volume] in Serum or Plasma 2025-01-03 15:17:16 1520 ng/mL F 22.0-322.0 Ferritin [Mass/volume] in Serum or Plasma 2025-01-03 15:17:16 1520 ng/mL F 22.0-322.0 HCT CALC HGBX3 2024-12-29 14:37:06 29.7 % F 42.0-52.0 HCT CALC HGBX3 2024-12-29 14:37:06 29.7 % F 42.0-52.0 Hemoglobin [Mass/volume] in Blood 2024-12-29 14:36:09 9.9 g/dL F 14.0-18.0 Hemoglobin [Mass/volume] in Blood 2024-12-29 14:36:09 9.9 g/dL F 14.0-18.0 IRON SATURATION 2024-12-15 16:48:53 29 % F 21.0-49.0 TIBC 2024-12-15 16:48:53 219 ug/dL F 250.0-425.0 IRON SATURATION 2024-12-15 16:48:53 29 % F 21.0-49.0 TIBC 2024-12-15 16:48:53 219 ug/dL F 250.0-425.0 Iron [Mass/volume] in Serum or Plasma 2024-12-15 16:40:54 63 ug/dL F 65.0-175.0 Iron binding capacity.unsaturated [Mass/volume] in Serum or Plasma 2024-12-15 16:40:54 156 ug/dL F 75.0-360.0 Iron [Mass/volume] in Serum or Plasma 2024-12-15 16:40:54 63 ug/dL F 65.0-175.0 Iron binding capacity.unsaturated [Mass/volume] in Serum or Plasma 2024-12-15 16:40:54 156 ug/dL F 75.0-360.0 HCT CALC HGBX3 2024-12-15 13:39:03 30.3 % F 42.0-52.0 HCT CALC HGBX3 2024-12-15 13:39:03 30.3 % F 42.0-52.0 Erythrocytes [#/volume] in Blood by Automated count 2024-12-15 13:38:14 3.72 x 10^6 cells/uL F 4.6-6.2 Hematocrit [Volume Fraction] of Blood by Automated count 2024-12-15 13:38:14 32.4 % F 41.0-53.0 MCH [Entitic mass] by Automated count 2024-12-15 13:38:14 27.2 pg F 25.9-34.2 Hemoglobin [Mass/volume] in Blood 2024-12-15 13:38:14 10.1 g/dL F 14.0-18.0 MCV [Entitic volume] by Automated count 2024-12-15 13:38:14 87.1 fL F 80.0-100.0 Hemoglobin [Mass/volume] in Blood 2024-12-15 13:38:14 10.1 g/dL F 14.0-18.0 MCH [Entitic mass] by Automated count 2024-12-15 13:38:14 27.2 pg F 25.9-34.2 Hematocrit [Volume Fraction] of Blood by Automated count 2024-12-15 13:38:14 32.4 % F 41.0-53.0 Erythrocytes [#/volume] in Blood by Automated count 2024-12-15 13:38:14 3.72 x 10^6 cells/uL F 4.6-6.2 MCV [Entitic volume] by Automated count 2024-12-15 13:38:14 87.1 fL F 80.0-100.0 Erythrocyte distribution width [Ratio] by Automated count 2024-12-15 13:38:13 16.9 % F 11.0-15.0 MCHC [Mass/volume] by Automated count 2024-12-15 13:38:13 31.2 g/dL F 29.6-35.3 Platelets [#/volume] in Blood by Automated count 2024-12-15 13:38:13 207 x 10^3 cells/uL F 140.0-450.0 Erythrocyte distribution width [Ratio] by Automated count 2024-12-15 13:38:13 16.9 % F 11.0-15.0 Platelets [#/volume] in Blood by Automated count 2024-12-15 13:38:13 207 x 10^3 cells/uL F 140.0-450.0 MCHC [Mass/volume] by Automated count 2024-12-15 13:38:13 31.2 g/dL F 29.6-35.3 Ferritin [Mass/volume] in Serum or Plasma 2024-12-14 19:16:30 F CANCELED - TEST CANCELED Ferritin [Mass/volume] in Serum or Plasma 2024-12-14 19:16:30 F CANCELED - TEST CANCELED,CANCEL ED - TEST CANCELED FluidBP Description Draw Date Result/Unit Status Ref Range Result Comments Sodium [Moles/volume] in Serum or Plasma 2025-04-28 04:56:17 142 mEq/L F 136.0-145.0 Sodium [Moles/volume] in Serum or Plasma 2025-03-31 05:52:14 141 mEq/L F 136.0-145.0 Sodium [Moles/volume] in Serum or Plasma 2025-03-31 05:52:14 141 mEq/L F 136.0-145.0 Sodium [Moles/volume] in Serum or Plasma 2025-03-02 21:45:49 141 mEq/L F 136.0-145.0 Sodium [Moles/volume] in Serum or Plasma 2025-03-02 21:45:49 141 mEq/L F 136.0-145.0 Sodium [Moles/volume] in Serum or Plasma 2025-02-01 01:17:00 138 mEq/L F 136.0-145.0 Sodium [Moles/volume] in Serum or Plasma 2025-02-01 01:17:00 138 mEq/L F 136.0-145.0 Sodium [Moles/volume] in Serum or Plasma 2025-02-01 01:17:00 138 mEq/L F 136.0-145.0 Sodium [Moles/volume] in Serum or Plasma 2024-12-15 16:40:54 134 mEq/L F 132.0-146.0 Sodium [Moles/volume] in Serum or Plasma 2024-12-15 16:40:54 134 mEq/L F 132.0-146.0 General Description Draw Date Result/Unit Status Ref Range Result Comments Chloride [Moles/volume] in Serum or Plasma 2025-04-28 04:56:17 103 mEq/L F 98.0-107.0 Alanine aminotransferase [Enzymatic activity/volume] in Serum or Plasma 2025-04-27 20:00:18 12 U/L F 10.0-49.0 Aspartate aminotransferase [Enzymatic activity/volume] in Serum or Plasma 2025-04-27 20:00:18 13 U/L F 0.0-33.0 Chloride [Moles/volume] in Serum or Plasma 2025-03-31 05:52:14 99 mEq/L F 98.0-107.0 Chloride [Moles/volume] in Serum or Plasma 2025-03-31 05:52:14 99 mEq/L F 98.0-107.0 Aspartate aminotransferase [Enzymatic activity/volume] in Serum or Plasma 2025-03-30 13:00:14 8 U/L F 0.0-33.0 Alanine aminotransferase [Enzymatic activity/volume] in Serum or Plasma 2025-03-30 13:00:14 13 U/L F 10.0-49.0 Alanine aminotransferase [Enzymatic activity/volume] in Serum or Plasma 2025-03-30 13:00:14 13 U/L F 10.0-49.0 Aspartate aminotransferase [Enzymatic activity/volume] in Serum or Plasma 2025-03-30 13:00:14 8 U/L F 0.0-33.0 Chloride [Moles/volume] in Serum or Plasma 2025-03-02 21:45:49 100 mEq/L F 98.0-107.0 Chloride [Moles/volume] in Serum or Plasma 2025-03-02 21:45:49 100 mEq/L F 98.0-107.0 Alanine aminotransferase [Enzymatic activity/volume] in Serum or Plasma 2025-03-02 13:48:21 14 U/L F 10.0-49.0 Aspartate aminotransferase [Enzymatic activity/volume] in Serum or Plasma 2025-03-02 13:48:21 14 U/L F 0.0-33.0 Aspartate aminotransferase [Enzymatic activity/volume] in Serum or Plasma 2025-03-02 13:48:21 14 U/L F 0.0-33.0 Alanine aminotransferase [Enzymatic activity/volume] in Serum or Plasma 2025-03-02 13:48:21 14 U/L F 10.0-49.0 Chloride [Moles/volume] in Serum or Plasma 2025-02-01 01:17:00 98 mEq/L F 98.0-107.0 Chloride [Moles/volume] in Serum or Plasma 2025-02-01 01:17:00 98 mEq/L F 98.0-107.0 Chloride [Moles/volume] in Serum or Plasma 2025-02-01 01:17:00 98 mEq/L F 98.0-107.0 Alanine aminotransferase [Enzymatic activity/volume] in Serum or Plasma 2025-01-31 16:42:26 15 U/L F 10.0-49.0 Aspartate aminotransferase [Enzymatic activity/volume] in Serum or Plasma 2025-01-31 16:42:26 11 U/L F 0.0-33.0 Aspartate aminotransferase [Enzymatic activity/volume] in Serum or Plasma 2025-01-31 16:42:26 11 U/L F 0.0-33.0 Alanine aminotransferase [Enzymatic activity/volume] in Serum or Plasma 2025-01-31 16:42:26 15 U/L F 10.0-49.0 Aspartate aminotransferase [Enzymatic activity/volume] in Serum or Plasma 2025-01-31 16:42:26 11 U/L F 0.0-33.0 Alanine aminotransferase [Enzymatic activity/volume] in Serum or Plasma 2025-01-31 16:42:26 15 U/L F 10.0-49.0 Chloride [Moles/volume] in Serum or Plasma 2024-12-15 16:40:54 98 mEq/L F 99.0-109.0 Chloride [Moles/volume] in Serum or Plasma 2024-12-15 16:40:54 98 mEq/L F 99.0-109.0 Alanine aminotransferase [Enzymatic activity/volume] in Serum or Plasma 2024-12-15 13:51:18 17 U/L F 10.0-49.0 Aspartate aminotransferase [Enzymatic activity/volume] in Serum or Plasma 2024-12-15 13:51:18 14 U/L F 0.0-33.0 Aspartate aminotransferase [Enzymatic activity/volume] in Serum or Plasma 2024-12-15 13:51:18 14 U/L F 0.0-33.0 Alanine aminotransferase [Enzymatic activity/volume] in Serum or Plasma 2024-12-15 13:51:18 17 U/L F 10.0-49.0 InfectionVaccination Description Draw Date Result/Unit Status Ref Range Result Comments Basophils/100 leukocytes in Blood by Automated count 2025-04-27 19:39:17 0.8 % F Lymphocytes/100 leukocytes in Blood by Automated count 2025-04-27 19:39:17 23.1 % F Neutrophils/100 leukocytes in Blood by Automated count 2025-04-27 19:39:17 70.6 % F Monocytes/100 leukocytes in Blood by Automated count 2025-04-27 19:39:17 4.1 % F Eosinophils/100 leukocytes in Blood by Automated count 2025-04-27 19:39:17 1.3 % F Leukocytes [#/volume] in Blood by Automated count 2025-04-27 19:39:17 8.3 x 10^3 cells/uL F 4.0-11.0 Neutrophils [#/volume] in Blood by Automated count 2025-04-27 19:39:17 5832 Cells/uL F 2000.0-8800.0 Lymphocytes [#/volume] in Blood by Automated count 2025-04-27 19:39:17 1908 Cells/uL F 620.0-3660.0 Monocytes [#/volume] in Blood by Automated count 2025-04-27 19:39:17 339 Cells/uL F 0.0-1100.0 Basophils [#/volume] in Blood by Automated count 2025-04-27 19:39:17 66 Cells/uL F 0.0-400.0 Eosinophils [#/volume] in Blood by Automated count 2025-04-27 19:39:17 107 Cells/uL F 0.0-700.0 Basophils/100 leukocytes in Blood by Automated count 2025-03-30 12:39:07 0.6 % F Lymphocytes/100 leukocytes in Blood by Automated count 2025-03-30 12:39:07 25.8 % F Eosinophils/100 leukocytes in Blood by Automated count 2025-03-30 12:39:07 1.8 % F Neutrophils/100 leukocytes in Blood by Automated count 2025-03-30 12:39:07 66.8 % F Monocytes/100 leukocytes in Blood by Automated count 2025-03-30 12:39:07 5.1 % F Monocytes [#/volume] in Blood by Automated count 2025-03-30 12:39:07 370 Cells/uL F 0.0-1100.0 Basophils [#/volume] in Blood by Automated count 2025-03-30 12:39:07 44 Cells/uL F 0.0-400.0 Eosinophils [#/volume] in Blood by Automated count 2025-03-30 12:39:07 130 Cells/uL F 0.0-700.0 Neutrophils [#/volume] in Blood by Automated count 2025-03-30 12:39:07 4843 Cells/uL F 2000.0-8800.0 Leukocytes [#/volume] in Blood by Automated count 2025-03-30 12:39:07 7.2 x 10^3 cells/uL F 4.0-11.0 Lymphocytes [#/volume] in Blood by Automated count 2025-03-30 12:39:07 1870 Cells/uL F 620.0-3660.0 Basophils/100 leukocytes in Blood by Automated count 2025-03-30 12:39:07 0.6 % F Neutrophils/100 leukocytes in Blood by Automated count 2025-03-30 12:39:07 66.8 % F Lymphocytes/100 leukocytes in Blood by Automated count 2025-03-30 12:39:07 25.8 % F Eosinophils/100 leukocytes in Blood by Automated count 2025-03-30 12:39:07 1.8 % F Monocytes/100 leukocytes in Blood by Automated count 2025-03-30 12:39:07 5.1 % F Leukocytes [#/volume] in Blood by Automated count 2025-03-30 12:39:07 7.2 x 10^3 cells/uL F 4.0-11.0 Neutrophils [#/volume] in Blood by Automated count 2025-03-30 12:39:07 4843 Cells/uL F 2000.0-8800.0 Lymphocytes [#/volume] in Blood by Automated count 2025-03-30 12:39:07 1870 Cells/uL F 620.0-3660.0 Monocytes [#/volume] in Blood by Automated count 2025-03-30 12:39:07 370 Cells/uL F 0.0-1100.0 Eosinophils [#/volume] in Blood by Automated count 2025-03-30 12:39:07 130 Cells/uL F 0.0-700.0 Basophils [#/volume] in Blood by Automated count 2025-03-30 12:39:07 44 Cells/uL F 0.0-400.0 Basophils [#/volume] in Blood by Automated count 2025-03-02 14:07:11 30 Cells/uL F 0.0-400.0 Eosinophils [#/volume] in Blood by Automated count 2025-03-02 14:07:11 105 Cells/uL F 0.0-700.0 Monocytes [#/volume] in Blood by Automated count 2025-03-02 14:07:11 396 Cells/uL F 0.0-1100.0 Basophils [#/volume] in Blood by Automated count 2025-03-02 14:07:11 30 Cells/uL F 0.0-400.0 Monocytes [#/volume] in Blood by Automated count 2025-03-02 14:07:11 396 Cells/uL F 0.0-1100.0 Eosinophils [#/volume] in Blood by Automated count 2025-03-02 14:07:11 105 Cells/uL F 0.0-700.0 Lymphocytes/100 leukocytes in Blood by Automated count 2025-03-02 14:07:09 26.5 % F Basophils/100 leukocytes in Blood by Automated count 2025-03-02 14:07:09 0.4 % F Eosinophils/100 leukocytes in Blood by Automated count 2025-03-02 14:07:09 1.4 % F Monocytes/100 leukocytes in Blood by Automated count 2025-03-02 14:07:09 5.3 % F Lymphocytes [#/volume] in Blood by Automated count 2025-03-02 14:07:09 1980 Cells/uL F 620.0-3660.0 Neutrophils/100 leukocytes in Blood by Automated count 2025-03-02 14:07:09 66.5 % F Leukocytes [#/volume] in Blood by Automated count 2025-03-02 14:07:09 7.5 x 10^3 cells/uL F 4.0-11.0 Neutrophils [#/volume] in Blood by Automated count 2025-03-02 14:07:09 4968 Cells/uL F 2000.0-8800.0 Eosinophils/100 leukocytes in Blood by Automated count 2025-03-02 14:07:09 1.4 % F Monocytes/100 leukocytes in Blood by Automated count 2025-03-02 14:07:09 5.3 % F Basophils/100 leukocytes in Blood by Automated count 2025-03-02 14:07:09 0.4 % F Lymphocytes/100 leukocytes in Blood by Automated count 2025-03-02 14:07:09 26.5 % F Lymphocytes [#/volume] in Blood by Automated count 2025-03-02 14:07:09 1980 Cells/uL F 620.0-3660.0 Neutrophils/100 leukocytes in Blood by Automated count 2025-03-02 14:07:09 66.5 % F Neutrophils [#/volume] in Blood by Automated count 2025-03-02 14:07:09 4968 Cells/uL F 2000.0-8800.0 Leukocytes [#/volume] in Blood by Automated count 2025-03-02 14:07:09 7.5 x 10^3 cells/uL F 4.0-11.0 Neutrophils/100 leukocytes in Blood by Automated count 2025-01-31 18:07:08 71.5 % F Monocytes/100 leukocytes in Blood by Automated count 2025-01-31 18:07:08 5.3 % F Neutrophils [#/volume] in Blood by Automated count 2025-01-31 18:07:08 5062 Cells/uL F 2000.0-8800.0 Lymphocytes [#/volume] in Blood by Automated count 2025-01-31 18:07:08 1508 Cells/uL F 620.0-3660.0 Basophils [#/volume] in Blood by Automated count 2025-01-31 18:07:08 50 Cells/uL F 0.0-400.0 Basophils/100 leukocytes in Blood by Automated count 2025-01-31 18:07:08 0.7 % F Lymphocytes/100 leukocytes in Blood by Automated count 2025-01-31 18:07:08 21.3 % F Eosinophils/100 leukocytes in Blood by Automated count 2025-01-31 18:07:08 1.1 % F Leukocytes [#/volume] in Blood by Automated count 2025-01-31 18:07:08 7.1 x 10^3 cells/uL F 4.0-11.0 Eosinophils [#/volume] in Blood by Automated count 2025-01-31 18:07:08 78 Cells/uL F 0.0-700.0 Monocytes [#/volume] in Blood by Automated count 2025-01-31 18:07:08 375 Cells/uL F 0.0-1100.0 Basophils/100 leukocytes in Blood by Automated count 2025-01-31 18:07:08 0.7 % F Monocytes/100 leukocytes in Blood by Automated count 2025-01-31 18:07:08 5.3 % F Neutrophils/100 leukocytes in Blood by Automated count 2025-01-31 18:07:08 71.5 % F Eosinophils/100 leukocytes in Blood by Automated count 2025-01-31 18:07:08 1.1 % F Lymphocytes/100 leukocytes in Blood by Automated count 2025-01-31 18:07:08 21.3 % F Monocytes [#/volume] in Blood by Automated count 2025-01-31 18:07:08 375 Cells/uL F 0.0-1100.0 Basophils [#/volume] in Blood by Automated count 2025-01-31 18:07:08 50 Cells/uL F 0.0-400.0 Eosinophils [#/volume] in Blood by Automated count 2025-01-31 18:07:08 78 Cells/uL F 0.0-700.0 Neutrophils [#/volume] in Blood by Automated count 2025-01-31 18:07:08 5062 Cells/uL F 2000.0-8800.0 Leukocytes [#/volume] in Blood by Automated count 2025-01-31 18:07:08 7.1 x 10^3 cells/uL F 4.0-11.0 Lymphocytes [#/volume] in Blood by Automated count 2025-01-31 18:07:08 1508 Cells/uL F 620.0-3660.0 Basophils/100 leukocytes in Blood by Automated count 2025-01-31 18:07:08 0.7 % F Neutrophils/100 leukocytes in Blood by Automated count 2025-01-31 18:07:08 71.5 % F Monocytes/100 leukocytes in Blood by Automated count 2025-01-31 18:07:08 5.3 % F Eosinophils/100 leukocytes in Blood by Automated count 2025-01-31 18:07:08 1.1 % F Lymphocytes/100 leukocytes in Blood by Automated count 2025-01-31 18:07:08 21.3 % F Monocytes [#/volume] in Blood by Automated count 2025-01-31 18:07:08 375 Cells/uL F 0.0-1100.0 Basophils [#/volume] in Blood by Automated count 2025-01-31 18:07:08 50 Cells/uL F 0.0-400.0 Eosinophils [#/volume] in Blood by Automated count 2025-01-31 18:07:08 78 Cells/uL F 0.0-700.0 Neutrophils [#/volume] in Blood by Automated count 2025-01-31 18:07:08 5062 Cells/uL F 2000.0-8800.0 Leukocytes [#/volume] in Blood by Automated count 2025-01-31 18:07:08 7.1 x 10^3 cells/uL F 4.0-11.0 Lymphocytes [#/volume] in Blood by Automated count 2025-01-31 18:07:08 1508 Cells/uL F 620.0-3660.0 Lymphocytes/100 leukocytes in Blood by Automated count 2024-12-15 13:38:14 20.9 % F Lymphocytes [#/volume] in Blood by Automated count 2024-12-15 13:38:14 1348 Cells/uL F 620.0-3660.0 Leukocytes [#/volume] in Blood by Automated count 2024-12-15 13:38:14 6.4 x 10^3 cells/uL F 4.0-11.0 Neutrophils [#/volume] in Blood by Automated count 2024-12-15 13:38:14 4760 Cells/uL F 2000.0-8800.0 Basophils [#/volume] in Blood by Automated count 2024-12-15 13:38:14 13 Cells/uL F 0.0-400.0 Eosinophils [#/volume] in Blood by Automated count 2024-12-15 13:38:14 97 Cells/uL F 0.0-700.0 Monocytes [#/volume] in Blood by Automated count 2024-12-15 13:38:14 226 Cells/uL F 0.0-1100.0 Lymphocytes/100 leukocytes in Blood by Automated count 2024-12-15 13:38:14 20.9 % F Monocytes [#/volume] in Blood by Automated count 2024-12-15 13:38:14 226 Cells/uL F 0.0-1100.0 Basophils [#/volume] in Blood by Automated count 2024-12-15 13:38:14 13 Cells/uL F 0.0-400.0 Eosinophils [#/volume] in Blood by Automated count 2024-12-15 13:38:14 97 Cells/uL F 0.0-700.0 Neutrophils [#/volume] in Blood by Automated count 2024-12-15 13:38:14 4760 Cells/uL F 2000.0-8800.0 Leukocytes [#/volume] in Blood by Automated count 2024-12-15 13:38:14 6.4 x 10^3 cells/uL F 4.0-11.0 Lymphocytes [#/volume] in Blood by Automated count 2024-12-15 13:38:14 1348 Cells/uL F 620.0-3660.0 Monocytes/100 leukocytes in Blood by Automated count 2024-12-15 13:38:13 3.5 % F Neutrophils/100 leukocytes in Blood by Automated count 2024-12-15 13:38:13 73.8 % F Basophils/100 leukocytes in Blood by Automated count 2024-12-15 13:38:13 0.2 % F Eosinophils/100 leukocytes in Blood by Automated count 2024-12-15 13:38:13 1.5 % F Neutrophils/100 leukocytes in Blood by Automated count 2024-12-15 13:38:13 73.8 % F Basophils/100 leukocytes in Blood by Automated count 2024-12-15 13:38:13 0.2 % F Monocytes/100 leukocytes in Blood by Automated count 2024-12-15 13:38:13 3.5 % F Eosinophils/100 leukocytes in Blood by Automated count 2024-12-15 13:38:13 1.5 % F MineralBone Disorder Description Draw Date Result/Unit Status Ref Range Result Comments CA CORRECTED 2025-05-19 03:49:12 8.9 mg/dL F CA/PHOS PRODUCT 2025-05-19 03:06:57 57 Calc F 21.0-53.0 CA*PO4 CORRCTD 2025-05-19 03:06:57 57 Calc F 21.0-53.0 Calcium [Mass/volume] in Serum or Plasma 2025-05-19 02:52:48 8.9 mg/dL F 8.7-10.4 Parathyrin.intact [Mass/volume] in Serum or Plasma 2025-05-18 20:31:15 256 pg/mL F 18.0-80.0 Phosphate [Mass/volume] in Serum or Plasma 2025-05-18 19:27:15 6.4 mg/dL F 2.4-5.1 Alkaline phosphatase [Enzymatic activity/volume] in Serum or Plasma 2025-04-27 20:00:18 55 U/L F 46.0-116.0 CA CORRECTED 2025-04-14 06:34:35 8.2 mg/dL F CA CORRECTED 2025-04-14 06:34:35 8.2 mg/dL F CA/PHOS PRODUCT 2025-04-14 06:32:50 54.1 Calc F 21.0-53.0 CA*PO4 CORRCTD 2025-04-14 06:32:50 54.1 Calc F 21.0-53.0 CA/PHOS PRODUCT 2025-04-14 06:32:50 54.1 Calc F 21.0-53.0 CA*PO4 CORRCTD 2025-04-14 06:32:50 54.1 Calc F 21.0-53.0 Calcium [Mass/volume] in Serum or Plasma 2025-04-14 06:27:29 8.2 mg/dL F 8.7-10.4 Calcium [Mass/volume] in Serum or Plasma 2025-04-14 06:27:29 8.2 mg/dL F 8.7-10.4 Phosphate [Mass/volume] in Serum or Plasma 2025-04-14 06:23:18 6.6 mg/dL F 2.4-5.1 Phosphate [Mass/volume] in Serum or Plasma 2025-04-14 06:23:18 6.6 mg/dL F 2.4-5.1 Parathyrin.intact [Mass/volume] in Serum or Plasma 2025-04-13 17:28:20 461 pg/mL F 18.0-80.0 Parathyrin.intact [Mass/volume] in Serum or Plasma 2025-04-13 17:28:20 461 pg/mL F 18.0-80.0 Alkaline phosphatase [Enzymatic activity/volume] in Serum or Plasma 2025-03-30 13:00:14 59 U/L F 46.0-116.0 Alkaline phosphatase [Enzymatic activity/volume] in Serum or Plasma 2025-03-30 13:00:14 59 U/L F 46.0-116.0 CA CORRECTED 2025-03-17 07:42:50 9.2 mg/dL F CA CORRECTED 2025-03-17 07:42:50 9.2 mg/dL F CA/PHOS PRODUCT 2025-03-17 07:39:41 58.9 Calc F 21.0-53.0 CA*PO4 CORRCTD 2025-03-17 07:39:41 58.9 Calc F 21.0-53.0 CA/PHOS PRODUCT 2025-03-17 07:39:41 58.9 Calc F 21.0-53.0 CA*PO4 CORRCTD 2025-03-17 07:39:41 58.9 Calc F 21.0-53.0 Calcium [Mass/volume] in Serum or Plasma 2025-03-17 07:10:25 9.2 mg/dL F 8.7-10.4 Calcium [Mass/volume] in Serum or Plasma 2025-03-17 07:10:25 9.2 mg/dL F 8.7-10.4 Parathyrin.intact [Mass/volume] in Serum or Plasma 2025-03-16 23:48:18 304 pg/mL F 18.0-80.0 Parathyrin.intact [Mass/volume] in Serum or Plasma 2025-03-16 23:48:18 304 pg/mL F 18.0-80.0 Phosphate [Mass/volume] in Serum or Plasma 2025-03-16 21:05:23 6.4 mg/dL F 2.4-5.1 Phosphate [Mass/volume] in Serum or Plasma 2025-03-16 21:05:23 6.4 mg/dL F 2.4-5.1 Alkaline phosphatase [Enzymatic activity/volume] in Serum or Plasma 2025-03-02 13:48:21 67 U/L F 46.0-116.0 Alkaline phosphatase [Enzymatic activity/volume] in Serum or Plasma 2025-03-02 13:48:21 67 U/L F 46.0-116.0 CA CORRECTED 2025-02-17 04:03:22 8.6 mg/dL F CA CORRECTED 2025-02-17 04:03:22 8.6 mg/dL F CA CORRECTED 2025-02-17 04:03:22 8.6 mg/dL F CA/PHOS PRODUCT 2025-02-17 04:01:44 49 Calc F 21.0-53.0 CA*PO4 CORRCTD 2025-02-17 04:01:44 49 Calc F 21.0-53.0 CA*PO4 CORRCTD 2025-02-17 04:01:44 49 Calc F 21.0-53.0 CA/PHOS PRODUCT 2025-02-17 04:01:44 49 Calc F 21.0-53.0 CA*PO4 CORRCTD 2025-02-17 04:01:44 49 Calc F 21.0-53.0 CA/PHOS PRODUCT 2025-02-17 04:01:44 49 Calc F 21.0-53.0 Calcium [Mass/volume] in Serum or Plasma 2025-02-17 03:52:56 8.6 mg/dL F 8.7-10.4 Calcium [Mass/volume] in Serum or Plasma 2025-02-17 03:52:56 8.6 mg/dL F 8.7-10.4 Calcium [Mass/volume] in Serum or Plasma 2025-02-17 03:52:56 8.6 mg/dL F 8.7-10.4 Parathyrin.intact [Mass/volume] in Serum or Plasma 2025-02-16 15:31:18 488 pg/mL F 18.0-80.0 Parathyrin.intact [Mass/volume] in Serum or Plasma 2025-02-16 15:31:18 488 pg/mL F 18.0-80.0 Parathyrin.intact [Mass/volume] in Serum or Plasma 2025-02-16 15:31:18 488 pg/mL F 18.0-80.0 Phosphate [Mass/volume] in Serum or Plasma 2025-02-16 14:56:18 5.7 mg/dL F 2.4-5.1 Phosphate [Mass/volume] in Serum or Plasma 2025-02-16 14:56:18 5.7 mg/dL F 2.4-5.1 Phosphate [Mass/volume] in Serum or Plasma 2025-02-16 14:56:18 5.7 mg/dL F 2.4-5.1 CA CORRECTED 2025-02-01 01:20:35 8.9 mg/dL F CA CORRECTED 2025-02-01 01:20:35 8.9 mg/dL F CA CORRECTED 2025-02-01 01:20:35 8.9 mg/dL F Calcium [Mass/volume] in Serum or Plasma 2025-02-01 01:17:00 8.9 mg/dL F 8.7-10.4 Calcium [Mass/volume] in Serum or Plasma 2025-02-01 01:17:00 8.9 mg/dL F 8.7-10.4 Calcium [Mass/volume] in Serum or Plasma 2025-02-01 01:17:00 8.9 mg/dL F 8.7-10.4 Alkaline phosphatase [Enzymatic activity/volume] in Serum or Plasma 2025-01-31 16:42:26 64 U/L F 46.0-116.0 Alkaline phosphatase [Enzymatic activity/volume] in Serum or Plasma 2025-01-31 16:42:26 64 U/L F 46.0-116.0 Alkaline phosphatase [Enzymatic activity/volume] in Serum or Plasma 2025-01-31 16:42:26 64 U/L F 46.0-116.0 CA CORRECTED 2025-01-13 07:32:14 7.8 mg/dL F CA CORRECTED 2025-01-13 07:32:14 7.8 mg/dL F CA/PHOS PRODUCT 2025-01-13 07:29:53 49.9 Calc F 21.0-53.0 CA*PO4 CORRCTD 2025-01-13 07:29:53 49.9 Calc F 21.0-53.0 CA/PHOS PRODUCT 2025-01-13 07:29:53 49.9 Calc F 21.0-53.0 CA*PO4 CORRCTD 2025-01-13 07:29:53 49.9 Calc F 21.0-53.0 Calcium [Mass/volume] in Serum or Plasma 2025-01-13 07:07:56 7.8 mg/dL F 8.7-10.4 Calcium [Mass/volume] in Serum or Plasma 2025-01-13 07:07:56 7.8 mg/dL F 8.7-10.4 Phosphate [Mass/volume] in Serum or Plasma 2025-01-12 17:45:21 6.4 mg/dL F 2.4-5.1 Phosphate [Mass/volume] in Serum or Plasma 2025-01-12 17:45:21 6.4 mg/dL F 2.4-5.1 Parathyrin.intact [Mass/volume] in Serum or Plasma 2025-01-12 14:05:15 446 pg/mL F 18.0-80.0 Parathyrin.intact [Mass/volume] in Serum or Plasma 2025-01-12 14:05:15 446 pg/mL F 18.0-80.0 Parathyrin.intact [Mass/volume] in Serum or Plasma 2025-01-03 15:17:16 435 pg/mL F 18.0-80.0 Parathyrin.intact [Mass/volume] in Serum or Plasma 2025-01-03 15:17:16 435 pg/mL F 18.0-80.0 CA CORRECTED 2024-12-15 17:19:23 8.2 mg/dL F CA CORRECTED 2024-12-15 17:19:23 8.2 mg/dL F CA/PHOS PRODUCT 2024-12-15 17:16:31 45.9 Calc F 21.0-53.0 CA*PO4 CORRCTD 2024-12-15 17:16:31 45.9 Calc F 21.0-53.0 CA/PHOS PRODUCT 2024-12-15 17:16:31 45.9 Calc F 21.0-53.0 CA*PO4 CORRCTD 2024-12-15 17:16:31 45.9 Calc F 21.0-53.0 Calcium [Mass/volume] in Serum or Plasma 2024-12-15 17:08:00 8.2 mg/dL F 8.7-10.4 Calcium [Mass/volume] in Serum or Plasma 2024-12-15 17:08:00 8.2 mg/dL F 8.7-10.4 Phosphate [Mass/volume] in Serum or Plasma 2024-12-15 16:40:54 5.6 mg/dL F 2.4-5.1 Phosphate [Mass/volume] in Serum or Plasma 2024-12-15 16:40:54 5.6 mg/dL F 2.4-5.1 Alkaline phosphatase [Enzymatic activity/volume] in Serum or Plasma 2024-12-15 13:51:18 67 U/L F 46.0-116.0 Alkaline phosphatase [Enzymatic activity/volume] in Serum or Plasma 2024-12-15 13:51:18 67 U/L F 46.0-116.0 Parathyrin.intact [Mass/volume] in Serum or Plasma 2024-12-14 19:16:30 F CANCELED - TEST CANCELED Parathyrin.intact [Mass/volume] in Serum or Plasma 2024-12-14 19:16:30 F CANCELED - TEST CANCELED,CANCELED - TEST CANCELED Nutrition Description Draw Date Result/Unit Status Ref Range Result Comments Potassium [Moles/volume] in Serum or Plasma 2025-04-28 04:56:17 3.9 mEq/L F 3.5-5.1 A/G RATIO 2025-04-27 20:01:05 1.3 Calc F 1.0-2.5 GLOBULIN 2025-04-27 20:01:05 3.2 g/dL F 0.9-5.0 Albumin [Mass/volume] in Serum or Plasma by Bromocresol green (BCG) dye binding method 2025-04-27 20:00:18 4.3 g/dL F 3.2-4.8 Bicarbonate [Moles/volume] in Serum or Plasma 2025-04-27 20:00:18 22 mEq/L F 20.0-31.0 Glucose [Mass/volume] in Serum or Plasma 2025-04-27 20:00:18 254 mg/dL F 74.0-106.0 Lactate dehydrogenase [Enzymatic activity/volume] in Serum or Plasma 2025-04-27 20:00:18 147 U/L F 120.0-246.0 Protein [Mass/volume] in Serum or Plasma 2025-04-27 20:00:18 7.5 g/dL F 5.7-8.2 Potassium [Moles/volume] in Serum or Plasma 2025-03-31 05:52:14 4.2 mEq/L F 3.5-5.1 Potassium [Moles/volume] in Serum or Plasma 2025-03-31 05:52:14 4.2 mEq/L F 3.5-5.1 GLOBULIN 2025-03-30 13:01:07 2.8 g/dL F 0.9-5.0 A/G RATIO 2025-03-30 13:01:07 1.5 Calc F 1.0-2.5 A/G RATIO 2025-03-30 13:01:07 1.5 Calc F 1.0-2.5 GLOBULIN 2025-03-30 13:01:07 2.8 g/dL F 0.9-5.0 Lactate dehydrogenase [Enzymatic activity/volume] in Serum or Plasma 2025-03-30 13:00:14 146 U/L F 120.0-246.0 Bicarbonate [Moles/volume] in Serum or Plasma 2025-03-30 13:00:14 26 mEq/L F 20.0-31.0 Albumin [Mass/volume] in Serum or Plasma by Bromocresol green (BCG) dye binding method 2025-03-30 13:00:14 4.3 g/dL F 3.2-4.8 Protein [Mass/volume] in Serum or Plasma 2025-03-30 13:00:14 7.1 g/dL F 5.7-8.2 Glucose [Mass/volume] in Serum or Plasma 2025-03-30 13:00:14 265 mg/dL F 74.0-106.0 Albumin [Mass/volume] in Serum or Plasma by Bromocresol green (BCG) dye binding method 2025-03-30 13:00:14 4.3 g/dL F 3.2-4.8 Bicarbonate [Moles/volume] in Serum or Plasma 2025-03-30 13:00:14 26 mEq/L F 20.0-31.0 Glucose [Mass/volume] in Serum or Plasma 2025-03-30 13:00:14 265 mg/dL F 74.0-106.0 Lactate dehydrogenase [Enzymatic activity/volume] in Serum or Plasma 2025-03-30 13:00:14 146 U/L F 120.0-246.0 Protein [Mass/volume] in Serum or Plasma 2025-03-30 13:00:14 7.1 g/dL F 5.7-8.2 Potassium [Moles/volume] in Serum or Plasma 2025-03-02 21:45:49 4 mEq/L F 3.5-5.1 Potassium [Moles/volume] in Serum or Plasma 2025-03-02 21:45:49 4 mEq/L F 3.5-5.1 A/G RATIO 2025-03-02 13:49:26 1.6 Calc F 1.0-2.5 GLOBULIN 2025-03-02 13:49:26 2.9 g/dL F 0.9-5.0 A/G RATIO 2025-03-02 13:49:26 1.6 Calc F 1.0-2.5 GLOBULIN 2025-03-02 13:49:26 2.9 g/dL F 0.9-5.0 Lactate dehydrogenase [Enzymatic activity/volume] in Serum or Plasma 2025-03-02 13:48:23 141 U/L F 120.0-246.0 Lactate dehydrogenase [Enzymatic activity/volume] in Serum or Plasma 2025-03-02 13:48:23 141 U/L F 120.0-246.0 Bicarbonate [Moles/volume] in Serum or Plasma 2025-03-02 13:48:21 22 mEq/L F 20.0-31.0 Albumin [Mass/volume] in Serum or Plasma by Bromocresol green (BCG) dye binding method 2025-03-02 13:48:21 4.5 g/dL F 3.2-4.8 Glucose [Mass/volume] in Serum or Plasma 2025-03-02 13:48:21 285 mg/dL F 74.0-106.0 Protein [Mass/volume] in Serum or Plasma 2025-03-02 13:48:21 7.4 g/dL F 5.7-8.2 Bicarbonate [Moles/volume] in Serum or Plasma 2025-03-02 13:48:21 22 mEq/L F 20.0-31.0 Albumin [Mass/volume] in Serum or Plasma by Bromocresol green (BCG) dye binding method 2025-03-02 13:48:21 4.5 g/dL F 3.2-4.8 Protein [Mass/volume] in Serum or Plasma 2025-03-02 13:48:21 7.4 g/dL F 5.7-8.2 Glucose [Mass/volume] in Serum or Plasma 2025-03-02 13:48:21 285 mg/dL F 74.0-106.0 Potassium [Moles/volume] in Serum or Plasma 2025-02-01 01:17:00 4 mEq/L F 3.5-5.1 Potassium [Moles/volume] in Serum or Plasma 2025-02-01 01:17:00 4 mEq/L F 3.5-5.1 Potassium [Moles/volume] in Serum or Plasma 2025-02-01 01:17:00 4 mEq/L F 3.5-5.1 A/G RATIO 2025-01-31 16:43:12 1.3 Calc F 1.0-2.5 GLOBULIN 2025-01-31 16:43:12 3.2 g/dL F 0.9-5.0 GLOBULIN 2025-01-31 16:43:12 3.2 g/dL F 0.9-5.0 A/G RATIO 2025-01-31 16:43:12 1.3 Calc F 1.0-2.5 GLOBULIN 2025-01-31 16:43:12 3.2 g/dL F 0.9-5.0 A/G RATIO 2025-01-31 16:43:12 1.3 Calc F 1.0-2.5 Albumin [Mass/volume] in Serum or Plasma by Bromocresol green (BCG) dye binding method 2025-01-31 16:42:26 4.3 g/dL F 3.2-4.8 Bicarbonate [Moles/volume] in Serum or Plasma 2025-01-31 16:42:26 22 mEq/L F 20.0-31.0 Lactate dehydrogenase [Enzymatic activity/volume] in Serum or Plasma 2025-01-31 16:42:26 143 U/L F 120.0-246.0 Protein [Mass/volume] in Serum or Plasma 2025-01-31 16:42:26 7.5 g/dL F 5.7-8.2 Glucose [Mass/volume] in Serum or Plasma 2025-01-31 16:42:26 384 mg/dL F 74.0-106.0 Lactate dehydrogenase [Enzymatic activity/volume] in Serum or Plasma 2025-01-31 16:42:26 143 U/L F 120.0-246.0 Bicarbonate [Moles/volume] in Serum or Plasma 2025-01-31 16:42:26 22 mEq/L F 20.0-31.0 Albumin [Mass/volume] in Serum or Plasma by Bromocresol green (BCG) dye binding method 2025-01-31 16:42:26 4.3 g/dL F 3.2-4.8 Protein [Mass/volume] in Serum or Plasma 2025-01-31 16:42:26 7.5 g/dL F 5.7-8.2 Glucose [Mass/volume] in Serum or Plasma 2025-01-31 16:42:26 384 mg/dL F 74.0-106.0 Lactate dehydrogenase [Enzymatic activity/volume] in Serum or Plasma 2025-01-31 16:42:26 143 U/L F 120.0-246.0 Bicarbonate [Moles/volume] in Serum or Plasma 2025-01-31 16:42:26 22 mEq/L F 20.0-31.0 Albumin [Mass/volume] in Serum or Plasma by Bromocresol green (BCG) dye binding method 2025-01-31 16:42:26 4.3 g/dL F 3.2-4.8 Protein [Mass/volume] in Serum or Plasma 2025-01-31 16:42:26 7.5 g/dL F 5.7-8.2 Glucose [Mass/volume] in Serum or Plasma 2025-01-31 16:42:26 384 mg/dL F 74.0-106.0 Potassium [Moles/volume] in Serum or Plasma 2024-12-15 16:40:54 4.1 mEq/L F 3.5-5.5 Potassium [Moles/volume] in Serum or Plasma 2024-12-15 16:40:54 4.1 mEq/L F 3.5-5.5 A/G RATIO 2024-12-15 13:52:16 1.4 Calc F 1.0-2.5 GLOBULIN 2024-12-15 13:52:16 3.1 g/dL F 0.9-5.0 GLOBULIN 2024-12-15 13:52:16 3.1 g/dL F 0.9-5.0 A/G RATIO 2024-12-15 13:52:16 1.4 Calc F 1.0-2.5 Bicarbonate [Moles/volume] in Serum or Plasma 2024-12-15 13:51:18 23 mEq/L F 20.0-31.0 Glucose [Mass/volume] in Serum or Plasma 2024-12-15 13:51:18 440 mg/dL F 70.0-99.0 Lactate dehydrogenase [Enzymatic activity/volume] in Serum or Plasma 2024-12-15 13:51:18 162 U/L F 120.0-246.0 Protein [Mass/volume] in Serum or Plasma 2024-12-15 13:51:18 7.4 g/dL F 5.7-8.2 Albumin [Mass/volume] in Serum or Plasma by Bromocresol green (BCG) dye binding method 2024-12-15 13:51:18 4.3 g/dL F 3.4-4.8 Lactate dehydrogenase [Enzymatic activity/volume] in Serum or Plasma 2024-12-15 13:51:18 162 U/L F 120.0-246.0 Bicarbonate [Moles/volume] in Serum or Plasma 2024-12-15 13:51:18 23 mEq/L F 20.0-31.0 Albumin [Mass/volume] in Serum or Plasma by Bromocresol green (BCG) dye binding method 2024-12-15 13:51:18 4.3 g/dL F 3.4-4.8 Protein [Mass/volume] in Serum or Plasma 2024-12-15 13:51:18 7.4 g/dL F 5.7-8.2 Glucose [Mass/volume] in Serum or Plasma 2024-12-15 13:51:18 440 mg/dL F 70.0-99.0 Encounters No encounter information to report Immunizations Ordered Immunization Name Filled Immunization Name Date Status Comments Refusal Reason Pneumococcal conjugate PCV20, polysaccharide [id number] conjugate, adjuvant, PF 2025-05-03 14:00:00 TST-PPD intradermal 2024-11-09 19:08:59 Influenza, MDCK, trivalent, preservative 2024-05-13 18:00:00 Hep B, adult 2023-12-07 05:00:00 TST-PPD intradermal 2023-11-06 16:57:58 Hep B, adult 2023-10-30 05:00:00 Influenza Vaccination 2022-07-18 06:00:00 Covid-19 Vaccination 2021-09-10 06:00:00 Covid-19 Vaccination 2021-08-18 06:00:00 Plan of Treatment Planned Activity Provider Planned Date Details Commen ts Future Scheduled Test Lee Arriola 2025-06-09 05:00:00 Ferritin [Mass/volume] in Serum or Plasma [code = 2276-4] Diagnostic Test Pending Lee Angelcell 2025-01-06 06:15:01 Ferritin [Mass/volume] in Serum or Plasma [code = 2276-4] [facility] [employer] 2023-10-28 06:42:47 Parathyrin.intact [Mass/volume] in Serum or Plasma [code = 2731-8] Diagnostic Test [facility] [employer] 2023-10-28 06:42:28 Hemoglobin [Mass/volume] in Blood [code = 718-7] Diagnostic Test [facility] [employer] 2024-02-07 05:00:00 Alanine aminotransferase [Enzymatic activity/volume] in Serum or Plasma [code = 1742-6] Diagnostic Test [facility] [employer] 2023-10-27 21:00:56 Glucose [Mass/volume] in Serum or Plasma [code = 2345-7] Diagnostic Test [facility] [employer] 2023-10-27 21:00:26 Aluminum [Mass/volume] in Serum or Plasma [code = 5574-9] Diagnostic Test [facility] [employer] 2023-10-27 21:00:39 Creatinine [Mass/volume] in Serum or Plasma [code = 2160-0] Diagnostic Test [facility] [employer] 2023-10-27 21:02:46 Sodium [Moles/volume] in Serum or Plasma [code = 2951-2] Diagnostic Test [facility] [employer] 2023-10-27 21:00:19 Albumin [Mass/volume] in Serum or Plasma by Bromocresol green (BCG) dye binding method [code = 96427-3] Diagnostic Test [facility] 2025-05-11 11:21:40 In-Center Hemodialysis Treatment [code = MFQ871] Diagnostic Test Pending [facility] 2024-11-28 18:38:08 In-Center Hemodialysis Treatment [code = OSK854] Diet Order Lee Arriola [facility] October 29, 2023 Diet Calorie 30 kcal/kg Fluid Value 1000 mL/d Phosphorus Value 1100 mg/d Potassium Value 2000 mg/d Protein Value 1.2 gm/kg Sodium Value 2000 mg/d Calculated Weight 93 kg dietary_diet_modification Carb Controlle d; MedicationBjry Dilip Arriola 2025-05-29 05:00:00Misatnam [code = 7163802]
--- OUTSIDE RECORDS SUMMARY | 2025-05-27 13:45 | XMS_ITS ---
Author Organization [facility] Address [address] [place] [address] Care Team Providers Care Trailhead Maintenance Worker Name Role Phone Tesha Carranza MD Unavailable Lee Arriola MD Unavailable [phone] Danni Terrazas RN Unavailable [phone] Franky Brewer MD Primary Care Provider [phone] Dialysis Access Sites Type Status Location Placement Date Removal Da te Hemodialysis Cath Double 10/20/23 Tunneled catheter Right Internal Jugular Active Right Neck (side) - Anterior 10/20/2023 Procedures Procedure Name Priority Date/Time Associated Diagnosis [...] HEPATITIS C ANTIBODY Routine 06/12/2024 10:14 AM DRAGLINE OILER End stage renal disease (HCC) PSA SCREEN Routine 06/12/2024 10:14 AM DRAGLINE OILER End stage renal disease (HCC) from Last 3 Months or Most Recently Relevant to Health Maintenance Allergies No known active allergies Medications cholecalcifero [...] Ultra-Fine Dunia Pen Needle) 32 gauge x 5/32 needleIndicati ons:Type 2 diabetes mellitus with chronic [...] 4:41 PM CDT): Required blood transfusion at [facility] for presenting Hgb 6.7. Now improved. Work-up [...] to underlying renal disease - TTE from [place] EF 55-60%, no major significant valvular abnormalities [...] (10/26/2023 5:02 PM CDT): Patient presented to [facility] with creatinine of 6.80. Prior Cr was 1.88 in Care Everywhere note in 2020. Was >7 on presentation to [facility] on 10/05. Patient has a history of [...] having any lung symptoms. - chest x-ray [facility] with no infiltrates - got 1 additional day of cefdinir here (10/15) - stopped antibiotics Social History Tobacco Use Types Packs/Day Years Used Date Smoking Tobacco: Never Passive Smoke Exposure: Never Smokeless Tobacco: Never Tobacco Cessation:Counseling Given: Not Answered [facility] Utilities Answer Date Recorded In the past 12 months has th e [employer], gas, oil, or water [employer] threatened to shut off services in your [...] often do you attend chur ch or presybeterian services? 1 to 4 times per year 06/12/2024 Do you belong to any clubs o r organizations such as confucianist groups, unions, fraternal or athletic groups, or [...] place to sleep or slept in a retirement (including now)? No 10/27/2023 Personal Safety Answer Date Recorded Have you ever been in or are you currently in a harmful physical or emotional relationship or is someone making you feel afraid or unsafe? Denies 01/25/2024 Sex and Gender Information Value Date Recorded Sex Assigned at Not on file Legal Sex Male 9:39 AM DRAGLINE OILER Gender Identity Not on file Sexual Orientation Not on file Last Filed Vital Signs Vital Sign Reading Time Taken Comments Blood Pressure 132/86 04/06/2025 8:27 AM CDT Pulse 96 04/06/2025 8:27 AM CDT Temperature 36.7 C (98.1 F) 06/12/2024 1:42 PM DRAGLINE OILER Respiratory Rate 15 02/23/2025 11:47 AM CDT Oxygen Saturation 96% 03/03/2024 11:05 AM CDT Inhaled Oxygen Concentration - - Weight 113.4 kg (250 lb) 04/06/2025 8:27 AM CDT Height 188 cm (6' 2) 04/06/2025 8:27 AM CDT Body Mass Index 32.1 04/06/2025 8:27 AM CDT Results * (ABNORMAL) eGFR (04/06/2025 8:58 AM CDT) eGFR 9(L) >=60 mL/min/1. 73 m2 Comment: [...] 8:58 AM CDT 04/06/2025 12:01 PM CDT us William Hunt MD LAB BLOOD ORDERABLE S Final Result [facility] [address] [address] Department [place] [address] * (ABNORMAL) Lipid panel (04/06/2025 8:58 AM [...] on 2018. HDL 34(L) >=40 mg/dL [facility] Comment: Interpretive Data Ages [...] 2018. LDL, calculated 119 <=129 mg/dL [facility] Comment: Interpretive Data Ages [...] NCEP Expert Panel. Circulation 2004;110:227 3. Baron Francois et al. EARNESTINE Cardiol. 2019December 07;5(5):540-548. doi: 10.1001/jamacardio.2020.0013 Current Interpretive Data was last revised on 2024. Non-HDL Cholesterol 174 mg/dL [facility] Comment: Interpretive Data Ages < or = [...] revised on 2018. Chol/HDL ratio 6 [facility] Blood 04/06/2025 8:58 AM CDT 04/06/2025 11:54 AM CDT us William Hunt MD LAB BLOOD ORDERABLE S Final Result [facility] [address] [address] Department [place] [address] * (ABNORMAL) Comprehensive metabolic panel (04/06/2025 8:58 AM CDT) Sodium 139 135 - 145 mmol/L Potassium, pl 4.9 3.3 - 4.9 mmol/L [facility] Chloride 97 97 - 110 mmol/L [facility] CO2 25 22 - 32 mmol/L [facility] Anion gap 17(H) 2 - 15 mmol/L [facility] BUN 38(H) 6 - 25 mg/dL [facility] Creatinine 6.97(H) 0.80 - 1.30 mg/dL [facility] Glucose 249(H) 70 - 199 mg/dL [facility] Comment: Interpretive Data Fasting glucose >/= 126 [...] LAB BLOOD ORDERABLE S Final Result [facility] [address] [address] Department [place] [address] * (ABNORMAL) POCT hemoglobin A1c (04/06/2025 8:29 AM CDT) Hemoglobin A1C, POC 11.9(A) 4.0 - 5.6 % Capillary blood 04/06/2025 8 :29 AM CDT William Hunt MD POINT OF CARE TEST ORDERABLES Final Result * POCT glucose (04/06/2025 8:29 AM CDT) Pathologist [facility] Glucose Blood, POC 283 Normal Fasting 70 - 100, Random <200 mg/dL Blood 04/06/2025 8:29 AM CDT William Hunt MD POINT OF CARE TEST ORDERABLES Final Result * (ABNORMAL) PSA screen (06/12/2024 10:14 AM DRAGLINE OILER) [facility] PSA-Total 5.84(H) <=3.90 ng/mL Comment: Interpretive Data [...] revised 21. Blood 06/12/2024 10:1 4 AM DRAGLINE OILER 06/12/2024 11:37 AM DRAGLINE OILER Narrative [facility] - 06/12/2024 12:13 PM DRAGLINE OILER This lab is being obtained as part of a Kidney transplant evaluation, is time sensitive, and should only be drawn during the evaluation visit at [facility] 3[facility] Lab. Carlitos Glover MD LAB BLOOD ORDERABLES Final Resu lt [facility] [place] [address] * Hepatitis C antibody Blood (06/12/2024 10:14 AM DRAGLINE OILER) [facility] Hep C Ab Nonreactive Nonreactive Comment:Antibodies to HCV no t detected. Does NOT exclude the possibility of recent exposure to HCV. Current interpretive data was last revised on 22 Blood 06/12/2024 10:1 4 AM DRAGLINE OILER 06/12/2024 11:39 AM DRAGLINE OILER Narrative [facility] - 06/12/2024 12:37 PM DRAGLINE OILER This lab is being obtained as part of a Kidney transplant evaluation, is time sensitive, and should only be drawn during the evaluation visit at [facility] 3[facility] Lab. Carlitos Glover MD LAB MICROBIOLOGY - GENERAL [facility]O Final Result [facility] [place] [address] from Last 3 Months or Most Recently Relevant to Health Maintenance
[2025-05-27 13:46] VITALS: BP 168/100; PULSE 102; RESP 16; TEMP 37.2; O2SAT 100
--- OUTSIDE RECORDS SUMMARY | 2025-05-27 14:22 | XMS_ITS | Clinical Summary ---
Author Organization [facility] Address [address] [place] [id number] Phone Care Team Providers Care Parts Manager Name Role Phone Kate De La Fuente MD Primary Care Provider [phone] Allergies No known active allergies Medications Santyl 250 UNIT/GM ointment APPLY A ANDERSON SIZE THICKNESS TO WOUND ONCE DAILY 1 Active lisinopril (PRINIVIL) 40 MG tablet TAKE 1 TABLET BY MOUTH ONCE DAILY (NEW DOSE) 1 Active hydroCHLOROthia zide (HYDRODIURIL) 12.5 MG tablet TAKE 1 TABLET BY MOUTH EVERY OTHER DAY IN THE MORNING 1 Active mupirocin (BACTROBAN) 2 % ointment APPLY WITH SANTYL ONCE DAILY FOR 7 DAYS 1 Active rosuvastatin (CRESTOR) 10 MG tablet Take 10 mg by mouth 1 (one) time each day 1 Active triamcinolone (KENALOG) 0.1 % cream APPLY A THIN FILM TO RASH ON LEFT ANKLE DAILY 1 Active Active Problems Problem Noted Date Diagnosed Date Benign essential hypertension 11/14/2020 Type 2 diabetes mellitus wit h diabetic chronic kidney disease 11/14/2020 Nonspecific abnormal results of function study o f kidney 11/07/2020 Family History Medical History Relation Comments Kidney disease Father Relation Status Comments Father Social History Tobacco Use Types Packs/Day Years Used Date Smoking Tobacco: Never Smokeless Tobacco: Never Alcohol Use Standard Drinks/Week Comments Not Currently 0 (1 standard drink = 0.6 oz pur e alcohol) Sex and Gender Information Value Date Recorded Sex Assigned at Not on file Legal Sex Male 1:32 PM MST Gender Identity Not on file Sexual Orientation Not on file Last Filed Vital Signs Vital Sign Reading Time Taken Comments Blood Pressure 152/88 11/14/2020 10:12 AM CDT Pulse 72 11/14/2020 10:12 AM CDT Temperature 36.1 C (97 F) 11/14/2020 10:12 AM CDT Respiratory Rate - - Oxygen Saturation - - Inhaled Oxygen Concentration - - Weight 113 kg (250 lb) 11/14/2020 10:12 AM CDT Height 188 cm (6' 2) 11/14/2020 10:12 AM CDT Body Mass Index 32.1 11/14/2020 10:12 AM CDT Plan of Treatment Health Maintenance Due Date Last Done Comments Influenza Vaccine (#1) 2025 Insurance [facility] Care Teams Parts Manager Relationship Specialty Start Date End Date Kate De La Fuente MD [facility] [place] [address] PCP - General Internal Medicine 10/03/20
--- OUTSIDE RECORDS SUMMARY | 2025-05-27 14:22 | XMS_ITS ---
Author Organization [facility] Address [address] [place] [address] Care Team Providers Care Drying And Winding Supervisor Name Role Phone Tesha Carranza MD Unavailable Lee Arriola MD Unavailable [phone] Danni Terrazas RN Unavailable [phone] Franky Brewer MD Primary Care Provider [phone] Transplant Episode Kidney Candidate [facility] ([place], [place]) - [facility] Evaluation began on 03/23/2024 Marked as Active on 03/23/2024 Reason: Evaluation - Standard Kidney CoordinatorDanni Terrazas RN Email: N/A Scores Score Value Updated Exceptions/Reas ons CPRA Not available EPTS (Calc) 60 05/27/2025 Care Team Name Role Phone Fax Email Danni Terrazas RN Kidney Coordinator [phone] N/A Danny Le Egg Breaker N/A N/A N/A Lee Arriola MD Referring Physician [phone] N/A Xiao Manuel Primary Telephonic Case Manager N/A N/A N/A Events Pre-Transplant Referred: 10/22/2023 Evaluation began: 03/23/2024 Dialysis History Dialysis History Start End Type Comments Center 10/28/2023 Hemo TTS 11:00am Dr Lee Arriola - blind aide [facility] Dialysis Center Information Center Phone Fax Address [facility] [phone] [address] [address]
--- OUTSIDE RECORDS SUMMARY | 2025-05-27 14:23 | XMS_ITS | Clinical Summary ---
Author Organization [facility] Address [address] [place] [id number] Care Team Providers Care Operating Theatre Technician Name Role Phone Unavailable Primary Care Provider Unavailabl e Immunizations Immunization Administration Dates Next Due Hepatitis B-CpG 12/07/2023,10/30/2023 Influenza Vaccine, Quadrivalent, PF 07/18/2022 Social History Tobacco Use Types Packs/Day Years Used Date Smoking Tobacco: Never Assessed Sex and Gender Information Value Date Recorded Sex Assigned at Not on file Legal Sex Male 8:14 AM JOB CHECKER Gender Identity Not on file Sexual Orientation [...]
--- OUTSIDE RECORDS SUMMARY | 2025-05-27 14:23 | XMS_ITS ---
Author Organization [facility] Address [address] [place] [address] Care Team Providers Care Account Coordinator Name Role Phone Tesha Carranza MD Unavailable Lee Arriola MD Unavailable [phone] Danni Terrazas RN Unavailable [phone] Franky Brewer MD Primary Care Provider [phone] Dialysis Access Sites Type Status Location Placement [...] HEPATITIS C ANTIBODY Routine 06/12/2024 10:14 AM DOUBLE SURFACE OPERATOR End stage renal disease (HCC) PSA SCREEN Routine 06/12/2024 10:14 AM DOUBLE SURFACE OPERATOR End stage renal disease (HCC) from Last [...] 4:41 PM CDT): Required blood transfusion at [facility] for presenting Hgb 6.7. Now improved. Work-up [...] to underlying renal disease - TTE from [facility] EF 55-60%, no major significant valvular abnormalities [...] (10/26/2023 5:02 PM CDT): Patient presented to [facility] with creatinine of 6.80. Prior Cr was 1.88 in Care Everywhere note in 2020. Was >7 on presentation to [facility] on 10/05. Patient has a history [...] having any lung symptoms. - chest x-ray [facility] with no infiltrates - got 1 additional day of cefdinir here (10/15) - stopped antibiotics Social History Tobacco Use Types Packs/Day Years Used Date Smoking Tobacco: Never Passive Smoke Exposure: Never Smokeless Tobacco: Never Tobacco Cessation:Counseling Given: Not Answered [facility] Utilities Answer Date Recorded In the past 12 months has th e [employer], gas, oil, or water [employer] threatened to shut off services in your [...] often do you attend chur ch or hinduism services? 1 to 4 times per year 06/12/2024 Do you belong to any clubs o r organizations such as gnosticism groups, unions, fraternal or athletic groups, or [...] on file Legal Sex Male 9:39 AM DOUBLE SURFACE OPERATOR Gender Identity Not on file Sexual Orientation Not on file Last Filed Vital Signs Vital Sign Reading Time Taken Comments Blood Pressure 132/86 04/06/2025 8:27 AM CDT Pulse 96 04/06/2025 8:27 AM CDT Temperature 36.7 C (98.1 F) 06/12/2024 1:42 PM DOUBLE SURFACE OPERATOR Respiratory Rate 15 02/23/2025 11:47 AM CDT [...] LAB BLOOD ORDERABLE S Final Result [facility] [address] [address] Department [place] [address] * (ABNORMAL) Lipid panel (04/06/2025 [...] LAB BLOOD ORDERABLE S Final Result [facility] [address] [address] Department [place] [address] * (ABNORMAL) Comprehensive metabolic panel (04/06/2025 [...] LAB BLOOD ORDERABLE S Final Result [facility] [address] [address] Department [place] [address] * (ABNORMAL) POCT hemoglobin A1c (04/06/2025 8:29 AM CDT) Hemoglobin A1C, POC 11.9(A) 4.0 - 5.6 % Capillary blood 04/06/2025 8 :29 AM CDT William Hunt MD POINT OF CARE TEST ORDERABLES Final Result * POCT glucose (04/06/2025 8:29 AM CDT) Pathologist [facility] Glucose Blood, POC 283 Normal Fasting 70 - 100, Random <200 mg/dL Blood 04/06/2025 8:29 AM CDT William Hunt MD POINT OF CARE TEST ORDERABLES Final Result * (ABNORMAL) PSA screen (06/12/2024 10:14 AM DOUBLE SURFACE OPERATOR) [facility] PSA-Total 5.84(H) <=3.90 ng/mL Comment: Interpretive [...] revised 21. Blood 06/12/2024 10:1 4 AM DOUBLE SURFACE OPERATOR 06/12/2024 11:37 AM DOUBLE SURFACE OPERATOR Narrative [facility] - 06/12/2024 12:13 PM DOUBLE SURFACE OPERATOR This lab is being obtained as part of a Kidney transplant evaluation, is time sensitive, and should only be drawn during the evaluation visit at [facility] Lab. Carlitos Glover MD LAB BLOOD ORDERABLES Final Resu lt [facility] Department [place] [address] * Hepatitis C antibody Blood (06/12/2024 10:14 AM DOUBLE SURFACE OPERATOR) [facility] Hep C Ab Nonreactive Nonreactive Comment:Antibodies to HCV no t detected. Does NOT exclude the possibility of recent exposure to HCV. Current interpretive data was last revised on 22 Blood 06/12/2024 10:1 4 AM DOUBLE SURFACE OPERATOR 06/12/2024 11:39 AM DOUBLE SURFACE OPERATOR Narrative [facility] - 06/12/2024 12:37 PM DOUBLE SURFACE OPERATOR This lab is being obtained as part of a Kidney transplant evaluation, is time sensitive, and should only be drawn during the evaluation visit at [facility] Lab. Carlitos Glover MD LAB MICROBIOLOGY - GENERAL KD CASTILLO Final Result [facility] Department [place] [address] from Last 3 Months or Most Recently Relevant to Health Maintenance
--- OUTSIDE RECORDS SUMMARY | 2025-05-27 14:23 | XMS_ITS | Clinical Summary ---
Author Organization [facility] [employer] Address [address] [place] [address] Care Team Providers Care Bill Hiker Name Role Phone Unavailable Primary Care Provider Unavailabl e Source Comments [facility] [employer]non-owned Affiliates and Associated Physician Practices is amultiple site organization consisting of ambulatory clinics and hospital sitesin [place], [place], [place] and [place]. This disclosure is being madepursuant to the Care Everywhere program and may not contain all information available regarding this patient. Last updated 18.[facility] [employer] Social History Tobacco Use Types Packs/Day Years [...] patient's age to complete this topic Insurance [facility]
--- OUTSIDE RECORDS SUMMARY | 2025-05-27 14:23 | XMS_ITS | Clinical Summary ---
Author Organization [facility] Address [address] [place] [address] Care Team Providers Care Medical Insurance Clerk Name Role Phone Tesha Carranza MD Unavailable Lee Arriola MD Unavailable [phone] Danni Terrazas RN Unavailable [phone] Franky Brewer MD Primary Care Provider [phone] Allergies No known active allergies Medications cholecalcifero [...] 4:41 PM CDT): Required blood transfusion at [facility] for presenting Hgb 6.7. Now improved. Work-up [...] to underlying renal disease - TTE from [facility] EF 55-60%, no major significant valvular abnormalities [...] (10/26/2023 5:02 PM CDT): Patient presented to [facility] with creatinine of 6.80. Prior Cr was 1.88 in Care Everywhere note in 2020. Was >7 on presentation to [facility] on 10/05. Patient has a history [...] having any lung symptoms. - chest x-ray [facility] with no infiltrates - got 1 additional day of cefdinir here (10/15) - stopped antibiotics Encounters Date Type Department Care Team Description 04/13/2025 Telephone [facility] [address] [address] William Reno MD Med Management (FSL3+ ) 04/13/2025 Telephone [facility] [address] [address] William Reno MD Med Management (Charles MCKEON) 04/06/2025 9:00 AM CDT Lab [address] [address] Type 2 diabetes mellitus with chronic kidney disease on chronic dialysis, with long-term current use of insulin (HCC); Hyperlipidemia associated with type 2 diabetes mellitus (HCC); Hypertension associated with diabetes (HCC) 04/06/2025 8:45 AM CDT [facility] [address] [address] William Reno MD Type 2 diabetes mellitus with chronic kidney disease on chronic dialysis, with long-term current use of insulin (HCC) (Primary Dx); Hypertension associated with diabetes (HCC); Hyperlipidemia associated with type 2 diabetes mellitus (HCC) 04/06/2025 Results Follow-Up [facility] [address] [address] William Reno MD Lipid panel, [...] Tobacco: Never Tobacco Cessation:Counseling Given: Not Answered [facility] Utilities Answer Date Recorded In the past 12 months has e [employer], gas, oil, or water [employer] threatened to shut off services in your [...] often do you attend chur ch or scientology services? 1 to 4 times per year 06/12/2024 Do you belong to any clubs o r organizations such as alevism groups, unions, fraternal or athletic groups, or [...] on file Legal Sex Male 9:39 AM PISTON MAKER Gender Identity Not on file Sexual Orientation Not on file Obstetrics History Last Filed Vital Signs Vital Sign Reading Time Taken Comments Blood Pressure 132/86 04/06/2025 8:27 AM CDT Pulse 96 04/06/2025 8:27 AM CDT Temperature 36.7 C (98.1 F) 06/12/2024 1:42 PM PISTON MAKER Respiratory Rate 15 02/23/2025 11:47 AM CDT [...] Completed 06/12/2024 Medical Devices Explanted Type Area Air Vice Marshal Device Identifier Shelf Expiration Date Model / Serial / Lot [facility] [employer] Embosafe 15.5fr 28cm Basic 2 Lumen Kit Catheter [id number] - [id number] Explanted:Qty: 1 on 10/20/2023 at [facility] 12/06/2025 [id number] Procedures Procedure Name Priority Date/Time Associated Diagnosis [...] HEPATITIS C ANTIBODY Routine 06/12/2024 10:14 AM PISTON MAKER End stage renal disease (HCC) PSA SCREEN Routine 06/12/2024 10:14 AM PISTON MAKER End stage renal disease (HCC) from Last 3 Months or Most Recently Relevant to Health Maintenance Results * (ABNORMAL) eGFR (04/06/2025 8:58 AM CDT) [facility] eGFR 9(L) >=60 mL/min/1. 73 m2 Comment: [...] BLOOD ORDERABLE S Final Result [facility] [address] [address] [address] Department [place] [address] * (ABNORMAL) Lipid panel (04/06/2025 8:58 AM [...] MD LAB BLOOD ORDERABLE S Final Result [facility] [address] [address] Department [place] [address] * (ABNORMAL) Comprehensive metabolic panel (04/06/2025 8:58 AM CDT) Sodium 139 135 - 145 mmol/L Potassium, pl 4.9 3.3 - 4.9 mmol/L [facility] Chloride 97 97 - 110 mmol/L [facility] CO2 25 22 - 32 mmol/L C[facility]ER Anion gap 17(H) 2 - 15 mmol/L [facility] BUN 38(H) 6 - 25 mg/dL [facility] Creatinine 6.97(H) 0.80 - 1.30 mg/dL [facility] Glucose 249(H) 70 - 199 mg/dL [facility] Comment: Interpretive Data Fasting glucose >/= 126 [...] LAB BLOOD ORDERABLE S Final Result [facility] [address] [address] Department [place] [address] * (ABNORMAL) POCT hemoglobin A1c (04/06/2025 8:29 [...] * (ABNORMAL) PSA screen (06/12/2024 10:14 AM PISTON MAKER) PSA-Total 5.84(H) <=3.90 ng/mL Comment: Interpretive Data [...] revised 21. Blood 06/12/2024 10:1 4 AM PISTON MAKER 06/12/2024 11:37 AM PISTON MAKER Narrative [facility] - 06/12/2024 12:13 PM PISTON MAKER This lab is being obtained as part of a Kidney transplant evaluation, is time sensitive, and should only be drawn during the evaluation visit at [address] Lab. Carlitos Glover MD LAB BLOOD ORDERABLES Final Resu lt Performing Organization Address [facility] Co de Phone Number [facility] [place] [address] * Hepatitis C antibody Blood (06/12/2024 10:14 AM PISTON MAKER) Pathologist [facility] Hep C Ab Nonreactive Nonreactive Comment:Antibodies to HCV no t detected. Does NOT exclude the possibility of recent exposure to HCV. Current interpretive data was last revised on 22 Blood 06/12/2024 10:1 4 AM PISTON MAKER 06/12/2024 11:39 AM PISTON MAKER Narrative [facility] 06/12/2024 12:37 PM PISTON MAKER This lab is being obtained as part of a Kidney transplant evaluation, is time sensitive, and should only be drawn during the evaluation visit at [address] Carlitos Glover MD LAB MICROBIOLOGY - GENERAL ORDE RABLES Final Result Performing Organization Address [facility]/ZIP Co de Phone Number [facility] [place] [address] from Last 3 Months or Most Recently Relevant to Health Maintenance Insurance MEDICARE [employer] OPEN ACCESS [facility] MEDICARE Advance Directives For more information, please contact: [phone] * Full Code (Latest Code Status on File) Date Activated Date Inactivated Comments 10/16/2023 5:48 AM 10/26/2023 8:33 PM Care Teams Medical Insurance Clerk Relationship Specialty Start Date End Date Franky Brewer MD [address] [place] [address] PCP - General Internal Medicine 02/07/25 Tesha Carranza MD [address] [place] [address] Resident General Surgery 01/25/24 Lee Arriola MD [address] [place] [address] Referring Physician Nephrology 03/17/24 Danni Terrazas, RN [address] [place] [address] Hearing Screener 03/17/24
--- NOTE | 2025-05-27 15:54 | ED_ITS ---
HPI - Skin/Abscess/Foreign Bdy General Chief complaint: Skin/Abscess/Foreign Body <Sara Bolden PA-C - Last Filed: 05/27/25 21:50> Stated complaint: ABCSESS <Sara Bolden PA-C - Last Filed: 05/27/25 21:50> Time Seen by Provider: 05/27/25 14:12 <Sara Bolden PA-C - Last Filed: 05/27/25 21:50> Source: patient <Sara Bolden PA-C - Last Filed: 05/27/25 21:50> Mode of arrival: ambulatory <LAVON Urban Last Filed: 05/27/25 21:50> Limitations: no limitations <Sara Bolden PA-C - Last Filed: 05/27/25 21:50> History of Present Illness HPI narrative: This is a 55 year old male that presents to the ER for a scrotal abscess. Reports ongoing over the last 10 days. Seen by his PCP and placed on Clindamycin with little relief. He was having some drainage from the area. Denies fevers. < Sara Bolden PA-C - Last Filed: 05/27/25 21:50> Related Data Home medications: Home Medications ?Medication ?Instructions ?Recorded ?Confirmed ?Last Taken ?Type atorvastatin 20 mg tablet 20 mg PO DAILY 05/27/2505/09 Unknown History calcium carbonate ([place] 500 mg PO DAILY 05/27/25 Unknown History Calcium 500) ergocalciferol (vitamin D2) 1,250 1,250 mcg PO DAILY 1 05/27/25 Unknown History mcg (50,000 unit) capsule furosemide 80 mg tablet 80 mg PO DAILY 05/27/2505/09 Unknown History insulin aspart U-100 100 unit/mL 10 unit subcut TID 05/27/25 Unknown History (3 mL) subcutaneous pen insulin glargine-yfgn 100 unit/mL 25 unit subcut DAILY @1000 05/27/25 05/27/25 Unknown History (3 mL) subcutaneous pen lisinopril 20 mg tablet 20 mg PO DAILY 05/27/2505/09 Unknown History <Sara Bolden PA-C - Last Filed: 05/27/25 21:50> Allergies/Adverse reactions: Allergies Allergy/AdvReac Type Severity Reaction Status Date / Time No Known Allergies Allergy Unknown Verified 05/27/25 23:37 <Sara Bolden PA-C - Last Filed: 05/27/25 21:50> Review of Systems 2 Review of Systems: All systems reviewed & are unremarkable except as noted in HPI and below <Sara Bolden PA-C - Last Filed: 05/27/25 21:50> [facility] Past Medical History Medical History: Medical History End stage renal disease Obesity (BMI 30.0-34.9) Diabetic retinopathy Type 2 diabetes mellitus Hyperlipidemia Hypertension <Sara Bolden PA-C - Last Filed: 05/27/25 21:50> Surgical History Surgical History: Surgical History Proliferative diabetic retinopathy with history of surgery <Sara Bolden PA-C - Last Filed: 05/27/25 21:50> Family History Family History: Family History Mother Thyroid disease Sibling Thyroid disease Father Diabetes mellitus End stage renal disease Hypertension <Sara Bolden PA-C - Last Filed: 05/27/25 21:50> Social History Social History: Social History Social History: Patient lives at home with his 24 years. 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 They have (I think he has had 2 children) who are healthy. He is a lifelong nonsmoker. He does not have any significant out alcohol or illicit substance use history. Code status: Full code Surrogate decision maker: Smoking status: Never smoker Alcohol intake: never Substance use: never Do You Feel Safe in your Home?: Yes Lack of Transportation: No Lack of Food: Never True Current Housing: I Have Housing Concerned About Future Housing: No Difficulty Paying Gas/Electric Bills: No Difficulty Paying for Meds: No Currently Unemployed: No Education: High School Diploma/GED Difficulty w/ Childcare or Family Care: No Living arrangements: with family Occupation/Education: occupation Gender identity (if verbalized by the patient): Male Sexual Orientation (if Verbalized by the Patient): Straight or Heterosexual Spiritual care concerns: No <Sara Bolden PA-C - Last Filed: 05/27/25 21:50> Exam 2 Narrative: GENERAL: Well-appearing, well-nourished, and in no acute distress. HEAD: Normocephalic, atraumatic. EYES: EOMI. CHEST: Clear to auscultation. No respiratory distress. No wheezes rales or rhonchi HEART: Regular rate and rhythm. No murmur heard. Normal peripheral pulses. ABDOMEN: Soft, nontender, nondistended, normal active bowel sounds. EXTREMITIES: Normal range of motion. No edema. SKIN: Warm, dry, no rash. NEURO: No focal deficits. Alert and oriented x3. PSYCH: Normal mood and affect MALE GENITAL: Large area of induration to the base of the right hemiscrotum <Sara Bolden PA-C - Last Filed: 05/27/25 21:50> Course [employer]/PA Physician Supervision This visit was performed by both a physician and an APC. I performed all aspects of the MDM as documented. <Gino Phipps MD - Last Filed: 06/05/25 07:20> Consultations Consultation #1: spoke with Dr. Pulido about patient and workup who will consult <Sara Bolden PA-C - Last Filed: 05/27/25 21:50> Date: 05/27/25 <Sara Bodlen PA-C - Last Filed: 05/27/25 21:50> Consultation #2: spoke with hospitalist about patient and workup who accepts admission < Sara Bolden PA-C - Last Filed: 05/27/25 21:50> Date: 05/27/25 <Sara Bolden PA-C - Last Filed: 05/27/25 21:50> Vital Signs Vital signs: Vital Signs Temperature 98.9 F 05/27/25 13:46 Pulse Rate 102 H 05/27/25 13:46 Respiratory Rate 16 05/27/25 13:46 Blood Pressure 168/100 H 05/27/25 13:46 Pulse Oximetry 100 05/27/25 13:46 Temperature 97.1 F L 06/04/25 12:00 Pulse Rate 71 06/04/25 12:00 Respiratory Rate 18 06/04/25 12:00 Blood Pressure 121/69 06/04/25 12:00 Pulse Oximetry 96 06/04/25 12:00 Oxygen Delivery Room Air 06/04/25 08:54 Oxygen Flow Rate 0 06/02/25 09:36 Fraction of Inspired Oxygen 0 06/02/25 20:00 <Sara Bolden PA-C - Last Filed: 05/27/25 21:50> Vital Signs Temperature 98.9 F 05/27/25 13:46 Pulse Rate 102 H 05/27/25 13:46 Respiratory Rate 16 05/27/25 13:46 Blood Pressure 168/100 H 05/27/25 13:46 Pulse Oximetry 100 05/27/25 13:46 Temperature 97.1 F L 06/04/25 12:00 Pulse Rate 71 06/04/25 12:00 Respiratory Rate 18 06/04/25 12:00 Blood Pressure 121/69 06/04/25 12:00 Pulse Oximetry 96 06/04/25 12:00 Oxygen Delivery Room Air 06/04/25 08:54 Oxygen Flow Rate 0 06/02/25 09:36 Fraction of Inspired Oxygen 0 06/02/25 20:00 <Gino Phipps MD - Last Filed: 06/05/25 07:20> MDM - Skin/Abscess/Foreign Bdy MDM Narrative Medical decision making narrative: Patient presents to the emergency for abscess at the base of his scrotum. He is afebrile and nontoxic appearing. His vitals are stable. CBC with leukocytosis to 15.8. Inflammatory markers are elevated. Metabolic panel with evidence of patient's end-stage renal disease. CT abdomen and pelvis shows scrotal abscesses with surrounding cellulitis. No soft tissue gas. spoke with Dr. Pulido about patient and workup who will consult. spoke with hospitalist about patient and workup who accepts admission. Blood cultures drawn, patient started on IV antibiotics. Consult placed for Nephrology <Sara Bolden PA-C - Last Filed: 05/27/25 21:50> Patient presents to the emergency for abscess at the base of his scrotum. He is afebrile and nontoxic appearing. His vitals are stable. CBC with leukocytosis to 15.8. Inflammatory markers are elevated. Metabolic panel with evidence of patient's end-stage renal disease. CT abdomen and pelvis shows scrotal abscesses with surrounding cellulitis. No soft tissue gas. spoke with Dr. Pulido about patient and workup who will consult. spoke with hospitalist about patient and workup who accepts admission. Blood cultures drawn, patient started on IV antibiotics. Consult placed for Nephrology This visit was performed by both a physician and an APC. I performed all aspects of the MDM as documented. <Gino Phipps MD - Last Filed: 06/05/25 07:20> Differential Diagnosis Differential diagnosis: Likely abscess of skin or subcutaneous tissue and cellulitis <Sara Bolden PA-C - Last Filed: 05/27/25 21:50> Lab Data Attestation: I reviewed the patient's lab results. <Sara Bolden PA-C - Last Filed: 05/27/25 21:50> Result diagrams: 06/04/25 05:10 06/04/25 05:10 <Sara Bolden PA-C - Last Filed: 05/27/25 21:50> Labs: Lab Results 05/27/25 05/27/25 05/27/25 Range/Units 16:21 16:40 20:40 WBC 15.8 H (4.5-10.0) K/mm3 RBC 4.15 L (4.6-6.20) M/mm3 Hgb 10.7 L (14.0-18.0) g/dL Hct 33.9 L (42.0-52.0) % MCV 81.7 (80-100) fl MCH 25.8 L (26-34) pg MCHC 31.6 L (32-36) g/dl RDW 15.0 H (11.5-14.5) % Plt Count 206 (150-375) k/mm3 MPV 11.3 H (7.4-10.4) fl Immature Gran % (Auto) 0.4 (0-0.5) % Neut % (Auto) 88.9 H (45.5-73.1) % Lymph % (Auto) 5.5 L (18.3-44.2) % [place] % (Auto) 4.9 (2.6-8.5) % Eos % (Auto) 0.1 (0-4.4) % Baso % (Auto) 0.2 (0.2-1.2) % Lymph # (Auto) 0.87 L (0.9-3.2) K/mm3 [place] # (Auto) 0.8 H (0.1-0.6) K/mm3 Eos # (Auto) 0.0 (0-0.3) K/mm3 Baso # (Auto) 0.0 (0.0-0.1) K/mm3 Abs Immat Gran (auto) 0.07 H (0.00-0.031) K/mm3 Absolute Neuts (auto) 14.0 H (1.3-6.7) K/mm3 Absolute Nucleated RBC 0.000 (0.0-0.012) K/mm3 Nucleated RBC % 0.0 (0.0-0.2) % ESR 107 H (0-20) mm/hr Sodium 131 L (137-145) mmol/L Potassium 4.6 (3.4-5.0) mmol/L Chloride 91 L (98-107) mmol/L Carbon Dioxide 26 (22-30) mmol/L Anion Gap 14 H (4-12) mmol/L BUN 47 H D (9-20) mg/dL Creatinine 7.96 H (0.7-1.3) mg/dL Estim Creat Clear Calc 14 ml/min Estimated GFR 7 L (59 - ) Glucose 424 H (65-110) mg/dL POC Capillary Glucose (65-105) mg/dl Hemoglobin A1c (<5.7) % Lactic Acid 1.7 (0.7-2.0) mmol/L Calcium 9.2 (8.4-10.2) mg/dL Magnesium (1.6-2.3) mg/dL Total Bilirubin (0.2-1.3) mg/dL AST (17-59) U/L ALT (6-50) U/L Alkaline Phosphatase (38-126) U/L C-Reactive Protein 8.6 H (<1.0) mg/dL Total Protein (6.3-8.2) g/dL Albumin (3.5-5.1) g/dL Urine Color Yellow (Yellow) Urine Appearance Clear (Clear) Urine pH 5.5 (5.0-9.0) Ur Specific [place] 1.016 (1.001-1.035) Urine Protein 2+ H (Negative) mg/dL Urine Glucose (UA) 3+ H (Negative) mg/dL Urine Ketones Negative (Negative) mg/dL Ur Blood (Man) 1+ H (Negative) Urine Nitrate Negative (Negative) Urine Bilirubin Negative (Negative) Urine Urobilinogen 0.2 (<2.0) mg/dL Leukocyte Esterase Rfl 1+ H (Negative) MALAIKA/UL Urine RBC 0-2 (0-2) /hpf Urine WBC 21-50 H (0-3) /hpf Ur Squamous Epith Cells None seen (Few) /hpf Urine Bacteria None seen /hpf Urine Casts 0-2 Nasal MRSA (PCR) (NOT DETECTE) Vancomycin Trough < 5.0 L (10.0-20.0) ug/mL Random Vancomycin (10-20) ug/mL Hep Bs Antigen (Negative) Hep Bs Antibody 05/28/25 05/28/25 05/28/25 Range/Units 05:16 05:23 07:35 WBC 16.2 H (4.5-10.0) K/mm3 RBC 3.91 L (4.6-6.20) M/mm3 Hgb 10.2 L (14.0-18.0) g/dL Hct 32.2 L (42.0-52.0) % MCV 82.4 (80-100) fl MCH 26.1 (26-34) pg MCHC 31.7 L (32-36) g/dl RDW 15.1 H (11.5-14.5) % Plt Count 187 (150-375) k/mm3 MPV 11.6 H (7.4-10.4) fl Immature Gran % (Auto) 0.7 H (0-0.5) % Neut % (Auto) 88.0 H (45.5-73.1) % Lymph % (Auto) 4.7 L (18.3-44.2) % [place] % (Auto) 6.2 (2.6-8.5) % Eos % (Auto) 0.2 (0-4.4) % Baso % (Auto) 0.2 (0.2-1.2) % Lymph # (Auto) 0.76 L (0.9-3.2) K/mm3 [place] # (Auto) 1.0 H (0.1-0.6) K/mm3 Eos # (Auto) 0.0 (0-0.3) K/mm3 Baso # (Auto) 0.0 (0.0-0.1) K/mm3 Abs Immat Gran (auto) 0.11 H (0.00-0.031) K/mm3 Absolute Neuts (auto) 14.3 H (1.3-6.7) K/mm3 Absolute Nucleated RBC 0.000 (0.0-0.012) K/mm3 Nucleated RBC % 0.0 (0.0-0.2) % ESR (0-20) mm/hr Sodium (137-145) mmol/L Potassium (3.4-5.0) mmol/L Chloride (98-107) mmol/L Carbon Dioxide (22-30) mmol/L Anion Gap (4-12) mmol/L BUN (9-20) mg/dL Creatinine 8.19 H (0.7-1.3) mg/dL Estim Creat Clear Calc 13 ml/min Estimated GFR 7 L (59 - ) Glucose (65-110) mg/dL POC Capillary Glucose 297 H (65-105) mg/dl Hemoglobin A1c 12.1 H (<5.7) % Lactic Acid (0.7-2.0) mmol/L Calcium (8.4-10.2) mg/dL Magnesium 1.9 (1.6-2.3) mg/dL Total Bilirubin (0.2-1.3) mg/dL AST (17-59) U/L ALT (6-50) U/L Alkaline Phosphatase (38-126) U/L C-Reactive Protein (<1.0) mg/dL Total Protein (6.3-8.2) g/dL Albumin (3.5-5.1) g/dL Urine Color (Yellow) Urine Appearance (Clear) Urine pH (5.0-9.0) Ur Specific [place] (1.001-1.035) Urine Protein (Negative) mg/dL Urine Glucose (UA) (Negative) mg/dL Urine Ketones (Negative) mg/dL Ur Blood (Man) (Negative) Urine Nitrate (Negative) Urine Bilirubin (Negative) Urine Urobilinogen (<2.0) mg/dL Leukocyte Esterase Rfl (Negative) MALAIKA/UL Urine RBC (0-2) /hpf Urine WBC (0-3) /hpf Ur Squamous Epith Cells (Few) /hpf Urine Bacteria /hpf Urine Casts Nasal MRSA (PCR) (NOT DETECTE) Vancomycin Trough (10.0-20.0) ug/mL Random Vancomycin 23.4 H (10-20) ug/mL Hep Bs Antigen Negative (Negative) Hep Bs Antibody Indeterminate 05/28/25 05/28/25 05/28/25 Range/Units 08:11 11:33 16:08 WBC (4.5-10.0) K/mm3 RBC (4.6-6.20) M/mm3 Hgb (14.0-18.0) g/dL Hct (42.0-52.0) % MCV (80-100) fl MCH (26-34) pg MCHC (32-36) g/dl RDW (11.5-14.5) % Plt Count (150-375) k/mm3 MPV (7.4-10.4) fl Immature Gran % (Auto) (0-0.5) % Neut % (Auto) (45.5-73.1) % Lymph % (Auto) (18.3-44.2) % [place] % (Auto) (2.6-8.5) % Eos % (Auto) (0-4.4) % Baso % (Auto) (0.2-1.2) % Lymph # (Auto) (0.9-3.2) K/mm3 [place] # (Auto) (0.1-0.6) K/mm3 Eos # (Auto) (0-0.3) K/mm3 Baso # (Auto) (0.0-0.1) K/mm3 Abs Immat Gran (auto) (0.00-0.031) K/mm3 Absolute Neuts (auto) (1.3-6.7) K/mm3 Absolute Nucleated RBC (0.0-0.012) K/mm3 Nucleated RBC % (0.0-0.2) % ESR (0-20) mm/hr Sodium (137-145) mmol/L Potassium (3.4-5.0) mmol/L Chloride (98-107) mmol/L Carbon Dioxide (22-30) mmol/L Anion Gap (4-12) mmol/L BUN (9-20) mg/dL Creatinine (0.7-1.3) mg/dL Estim Creat Clear Calc ml/min Estimated GFR (59 - ) Glucose (65-110) mg/dL POC Capillary Glucose 316 H 259 H (65-105) mg/dl Hemoglobin A1c (<5.7) % Lactic Acid (0.7-2.0) mmol/L Calcium (8.4-10.2) mg/dL Magnesium (1.6-2.3) mg/dL Total Bilirubin (0.2-1.3) mg/dL AST (17-59) U/L ALT (6-50) U/L Alkaline Phosphatase (38-126) U/L C-Reactive Protein (<1.0) mg/dL Total Protein (6.3-8.2) g/dL Albumin (3.5-5.1) g/dL Urine Color (Yellow) Urine Appearance (Clear) Urine pH (5.0-9.0) Ur Specific [place] (1.001-1.035) Urine Protein (Negative) mg/dL Urine Glucose (UA) (Negative) mg/dL Urine Ketones (Negative) mg/dL Ur Blood (Man) (Negative) Urine Nitrate (Negative) Urine Bilirubin (Negative) Urine Urobilinogen (<2.0) mg/dL Leukocyte Esterase Rfl (Negative) MALAIKA/UL Urine RBC (0-2) /hpf Urine WBC (0-3) /hpf Ur Squamous Epith Cells (Few) /hpf Urine Bacteria /hpf Urine Casts Nasal MRSA (PCR) Not detected (NOT DETECTE) Vancomycin Trough (10.0-20.0) ug/mL Random Vancomycin (10-20) ug/mL Hep Bs Antigen (Negative) Hep Bs Antibody 05/28/25 05/29/25 05/29/25 Range/Units 20:33 05:15 08:07 WBC 19.2 H (4.5-10.0) K/mm3 RBC 3.65 L (4.6-6.20) M/mm3 Hgb 9.5 L (14.0-18.0) g/dL Hct 30.1 L (42.0-52.0) % MCV 82.5 (80-100) fl MCH 26.0 (26-34) pg MCHC 31.6 L (32-36) g/dl RDW 15.2 H (11.5-14.5) % Plt Count 192 (150-375) k/mm3 MPV 11.6 H (7.4-10.4) fl Immature Gran % (Auto) (0-0.5) % Neut % (Auto) (45.5-73.1) % Lymph % (Auto) (18.3-44.2) % [place] % (Auto) (2.6-8.5) % Eos % (Auto) (0-4.4) % Baso % (Auto) (0.2-1.2) % Lymph # (Auto) (0.9-3.2) K/mm3 [place] # (Auto) (0.1-0.6) K/mm3 Eos # (Auto) (0-0.3) K/mm3 Baso # (Auto) (0.0-0.1) K/mm3 Abs Immat Gran (auto) (0.00-0.031) K/mm3 Absolute Neuts (auto) (1.3-6.7) K/mm3 Absolute Nucleated RBC (0.0-0.012) K/mm3 Nucleated RBC % (0.0-0.2) % ESR (0-20) mm/hr Sodium 130 L (137-145) mmol/L Potassium 4.5 (3.4-5.0) mmol/L Chloride 92 L (98-107) mmol/L Carbon Dioxide 21 L (22-30) mmol/L Anion Gap 17 H (4-12) mmol/L BUN 64 H D (9-20) mg/dL Creatinine 11.61 H (0.7-1.3) mg/dL Estim Creat Clear Calc 9 ml/min Estimated GFR 5 L (59 - ) Glucose 199 H (65-110) mg/dL POC Capillary Glucose 245 H 193 H (65-105) mg/dl Hemoglobin A1c (<5.7) % Lactic Acid (0.7-2.0) mmol/L Calcium 8.3 L (8.4-10.2) mg/dL Magnesium (1.6-2.3) mg/dL Total Bilirubin 0.5 (0.2-1.3) mg/dL AST 20 (17-59) U/L ALT 14 (6-50) U/L Alkaline Phosphatase 84 (38-126) U/L C-Reactive Protein (<1.0) mg/dL Total Protein 7.8 (6.3-8.2) g/dL Albumin 3.9 (3.5-5.1) g/dL Urine Color (Yellow) Urine Appearance (Clear) Urine pH (5.0-9.0) Ur Specific [place] (1.001-1.035) Urine Protein (Negative) mg/dL Urine Glucose (UA) (Negative) mg/dL Urine Ketones (Negative) mg/dL Ur Blood (Man) (Negative) Urine Nitrate (Negative) Urine Bilirubin (Negative) Urine Urobilinogen (<2.0) mg/dL Leukocyte Esterase Rfl (Negative) MALAIKA/UL Urine RBC (0-2) /hpf Urine WBC (0-3) /hpf Ur Squamous Epith Cells (Few) /hpf Urine Bacteria /hpf Urine Casts Nasal MRSA (PCR) (NOT DETECTE) Vancomycin Trough (10.0-20.0) ug/mL Random Vancomycin 16.7 (10-20) ug/mL Hep Bs Antigen (Negative) Hep Bs Antibody <Sara Bolden PA-C - Last Filed: 05/27/25 21:50> Lab Results 05/27/25 05/27/25 05/27/25 Range/Units 16:21 16:40 20:40 WBC 15.8 H (4.5-10.0) K/mm3 RBC 4.15 L (4.6-6.20) M/mm3 Hgb 10.7 L (14.0-18.0) g/dL Hct 33.9 L (42.0-52.0) % MCV 81.7 (80-100) fl MCH 25.8 L (26-34) pg MCHC 31.6 L (32-36) g/dl RDW 15.0 H (11.5-14.5) % Plt Count 206 (150-375) k/mm3 MPV 11.3 H (7.4-10.4) fl Immature Gran % (Auto) 0.4 (0-0.5) % Neut % (Auto) 88.9 H (45.5-73.1) % Lymph % (Auto) 5.5 L (18.3-44.2) % [place] % (Auto) 4.9 (2.6-8.5) % Eos % (Auto) 0.1 (0-4.4) % Baso % (Auto) 0.2 (0.2-1.2) % Lymph # (Auto) 0.87 L (0.9-3.2) K/mm3 [place] # (Auto) 0.8 H (0.1-0.6) K/mm3 Eos # (Auto) 0.0 (0-0.3) K/mm3 Baso # (Auto) 0.0 (0.0-0.1) K/mm3 Abs Immat Gran (auto) 0.07 H (0.00-0.031) K/mm3 Absolute Neuts (auto) 14.0 H (1.3-6.7) K/mm3 Absolute Nucleated RBC 0.000 (0.0-0.012) K/mm3 Nucleated RBC % 0.0 (0.0-0.2) % ESR 107 H (0-20) mm/hr Sodium 131 L (137-145) mmol/L Potassium 4.6 (3.4-5.0) mmol/L Chloride 91 L (98-107) mmol/L Carbon Dioxide 26 (22-30) mmol/L Anion Gap 14 H (4-12) mmol/L BUN 47 H D (9-20) mg/dL Creatinine 7.96 H (0.7-1.3) mg/dL Estim Creat Clear Calc 14 ml/min Estimated GFR 7 L (59 - ) Glucose 424 H (65-110) mg/dL POC Capillary Glucose (65-105) mg/dl Hemoglobin A1c (<5.7) % Lactic Acid 1.7 (0.7-2.0) mmol/L Calcium 9.2 (8.4-10.2) mg/dL Magnesium (1.6-2.3) mg/dL Total Bilirubin (0.2-1.3) mg/dL AST (17-59) U/L ALT (6-50) U/L Alkaline Phosphatase (38-126) U/L C-Reactive Protein 8.6 H (<1.0) mg/dL Total Protein (6.3-8.2) g/dL Albumin (3.5-5.1) g/dL Urine Color Yellow (Yellow) Urine Appearance Clear (Clear) Urine pH 5.5 (5.0-9.0) Ur Specific [place] 1.016 (1.001-1.035) Urine Protein 2+ H (Negative) mg/dL Urine Glucose (UA) 3+ H (Negative) mg/dL Urine Ketones Negative (Negative) mg/dL Ur Blood (Man) 1+ H (Negative) Urine Nitrate Negative (Negative) Urine Bilirubin Negative (Negative) Urine Urobilinogen 0.2 (<2.0) mg/dL Leukocyte Esterase Rfl 1+ H (Negative) MAL[place]/UL Urine RBC 0-2 (0-2) /hpf Urine WBC 21-50 H (0-3) /hpf Ur Squamous Epith Cells None seen (Few) /hpf Urine Bacteria None seen /hpf Urine Casts 0-2 Nasal MRSA (PCR) (NOT DETECTE) Vancomycin Trough < 5.0 L (10.0-20.0) ug/mL Random Vancomycin (10-20) ug/mL Hep Bs Antigen (Negative) Hep Bs Antibody 05/28/25 05/28/25 05/28/25 Range/Units 05:16 05:23 07:35 WBC 16.2 H (4.5-10.0) K/mm3 RBC 3.91 L (4.6-6.20) M/mm3 Hgb 10.2 L (14.0-18.0) g/dL Hct 32.2 L (42.0-52.0) % MCV 82.4 (80-100) fl MCH 26.1 (26-34) pg MCHC 31.7 L (32-36) g/dl RDW 15.1 H (11.5-14.5) % Plt Count 187 (150-375) k/mm3 MPV 11.6 H (7.4-10.4) fl Immature Gran % (Auto) 0.7 H (0-0.5) % Neut % (Auto) 88.0 H (45.5-73.1) % Lymph % (Auto) 4.7 L (18.3-44.2) % [place] % (Auto) 6.2 (2.6-8.5) % Eos % (Auto) 0.2 (0-4.4) % Baso % (Auto) 0.2 (0.2-1.2) % Lymph # (Auto) 0.76 L (0.9-3.2) K/mm3 [place] # (Auto) 1.0 H (0.1-0.6) K/mm3 Eos # (Auto) 0.0 (0-0.3) K/mm3 Baso # (Auto) 0.0 (0.0-0.1) K/mm3 Abs Immat Gran (auto) 0.11 H (0.00-0.031) K/mm3 Absolute Neuts (auto) 14.3 H (1.3-6.7) K/mm3 Absolute Nucleated RBC 0.000 (0.0-0.012) K/mm3 Nucleated RBC % 0.0 (0.0-0.2) % ESR (0-20) mm/hr Sodium (137-145) mmol/L Potassium (3.4-5.0) mmol/L Chloride (98-107) mmol/L Carbon Dioxide (22-30) mmol/L Anion Gap (4-12) mmol/L BUN (9-20) mg/dL Creatinine 8.19 H (0.7-1.3) mg/dL Estim Creat Clear Calc 13 ml/min Estimated GFR 7 L (59 - ) Glucose (65-110) mg/dL POC Capillary Glucose 297 H (65-105) mg/dl Hemoglobin A1c 12.1 H (<5.7) % Lactic Acid (0.7-2.0) mmol/L Calcium (8.4-10.2) mg/dL Magnesium 1.9 (1.6-2.3) mg/dL Total Bilirubin (0.2-1.3) mg/dL AST (17-59) U/L ALT (6-50) U/L Alkaline Phosphatase (38-126) U/L C-Reactive Protein (<1.0) mg/dL Total Protein (6.3-8.2) g/dL Albumin (3.5-5.1) g/dL Urine Color (Yellow) Urine Appearance (Clear) Urine pH (5.0-9.0) Ur Specific [place] (1.001-1.035) Urine Protein (Negative) mg/dL Urine Glucose (UA) (Negative) mg/dL Urine Ketones (Negative) mg/dL Ur Blood (Man) (Negative) Urine Nitrate (Negative) Urine Bilirubin (Negative) Urine Urobilinogen (<2.0) mg/dL Leukocyte Esterase Rfl (Negative) MALAIKA/UL Urine RBC (0-2) /hpf Urine WBC (0-3) /hpf Ur Squamous Epith Cells (Few) /hpf Urine Bacteria /hpf Urine Casts Nasal MRSA (PCR) (NOT DETECTE) Vancomycin Trough (10.0-20.0) ug/mL Random Vancomycin 23.4 H (10-20) ug/mL Hep Bs Antigen Negative (Negative) Hep Bs Antibody Indeterminate 05/28/25 05/28/25 05/28/25 Range/Units 08:11 11:33 16:08 WBC (4.5-10.0) K/mm3 RBC (4.6-6.20) M/mm3 Hgb (14.0-18.0) g/dL Hct (42.0-52.0) % MCV (80-100) fl MCH (26-34) pg MCHC (32-36) g/dl RDW (11.5-14.5) % Plt Count (150-375) k/mm3 MPV (7.4-10.4) fl Immature Gran % (Auto) (0-0.5) % Neut % (Auto) (45.5-73.1) % Lymph % (Auto) (18.3-44.2) % [place] % (Auto) (2.6-8.5) % Eos % (Auto) (0-4.4) % Baso % (Auto) (0.2-1.2) % Lymph # (Auto) (0.9-3.2) K/mm3 [place] # (Auto) (0.1-0.6) K/mm3 Eos # (Auto) (0-0.3) K/mm3 Baso # (Auto) (0.0-0.1) K/mm3 Abs Immat Gran (auto) (0.00-0.031) K/mm3 Absolute Neuts (auto) (1.3-6.7) K/mm3 Absolute Nucleated RBC (0.0-0.012) K/mm3 Nucleated RBC % (0.0-0.2) % ESR (0-20) mm/hr Sodium (137-145) mmol/L Potassium (3.4-5.0) mmol/L Chloride (98-107) mmol/L Carbon Dioxide (22-30) mmol/L Anion Gap (4-12) mmol/L BUN (9-20) mg/dL Creatinine (0.7-1.3) mg/dL Estim Creat Clear Calc ml/min Estimated GFR (59 - ) Glucose (65-110) mg/dL POC Capillary Glucose 316 H 259 H (65-105) mg/dl Hemoglobin A1c (<5.7) % Lactic Acid (0.7-2.0) mmol/L Calcium (8.4-10.2) mg/dL Magnesium (1.6-2.3) mg/dL Total Bilirubin (0.2-1.3) mg/dL AST (17-59) U/L ALT (6-50) U/L Alkaline Phosphatase (38-126) U/L C-Reactive Protein (<1.0) mg/dL Total Protein (6.3-8.2) g/dL Albumin (3.5-5.1) g/dL Urine Color (Yellow) Urine Appearance (Clear) Urine pH (5.0-9.0) Ur Specific [place] (1.001-1.035) Urine Protein (Negative) mg/dL Urine Glucose (UA) (Negative) mg/dL Urine Ketones (Negative) mg/dL Ur Blood (Man) (Negative) Urine Nitrate (Negative) Urine Bilirubin (Negative) Urine Urobilinogen (<2.0) mg/dL Leukocyte Esterase Rfl (Negative) MALAIKA/UL Urine RBC (0-2) /hpf Urine WBC (0-3) /hpf Ur Squamous Epith Cells (Few) /hpf Urine Bacteria /hpf Urine Casts Nasal MRSA (PCR) Not detected (NOT DETECTE) Vancomycin Trough (10.0-20.0) ug/mL Random Vancomycin (10-20) ug/mL Hep Bs Antigen (Negative) Hep Bs Antibody 05/28/25 05/29/25 05/29/25 Range/Units 20:33 05:15 08:07 WBC 19.2 H (4.5-10.0) K/mm3 RBC 3.65 L (4.6-6.20) M/mm3 Hgb 9.5 L (14.0-18.0) g/dL Hct 30.1 L (42.0-52.0) % MCV 82.5 (80-100) fl MCH 26.0 (26-34) pg MCHC 31.6 L (32-36) g/dl RDW 15.2 H (11.5-14.5) % Plt Count 192 (150-375) k/mm3 MPV 11.6 H (7.4-10.4) fl Immature Gran % (Auto) (0-0.5) % Neut % (Auto) (45.5-73.1) % Lymph % (Auto) (18.3-44.2) % [place] % (Auto) (2.6-8.5) % Eos % (Auto) (0-4.4) % Baso % (Auto) (0.2-1.2) % Lymph # (Auto) (0.9-3.2) K/mm3 [place] # (Auto) (0.1-0.6) K/mm3 Eos # (Auto) (0-0.3) K/mm3 Baso # (Auto) (0.0-0.1) K/mm3 Abs Immat Gran (auto) (0.00-0.031) K/mm3 Absolute Neuts (auto) (1.3-6.7) K/mm3 Absolute Nucleated RBC (0.0-0.012) K/mm3 Nucleated RBC % (0.0-0.2) % ESR (0-20) mm/hr Sodium 130 L (137-145) mmol/L Potassium 4.5 (3.4-5.0) mmol/L Chloride 92 L (98-107) mmol/L Carbon Dioxide 21 L (22-30) mmol/L Anion Gap 17 H (4-12) mmol/L BUN 64 H D (9-20) mg/dL Creatinine 11.61 H (0.7-1.3) mg/dL Estim Creat Clear Calc 9 ml/min Estimated GFR 5 L (59 - ) Glucose 199 H (65-110) mg/dL POC Capillary Glucose 245 H 193 H (65-105) mg/dl Hemoglobin A1c (<5.7) % Lactic Acid (0.7-2.0) mmol/L Calcium 8.3 L (8.4-10.2) mg/dL Magnesium (1.6-2.3) mg/dL Total Bilirubin 0.5 (0.2-1.3) mg/dL AST 20 (17-59) U/L ALT 14 (6-50) U/L Alkaline Phosphatase 84 (38-126) U/L C-Reactive Protein (<1.0) mg/dL Total Protein 7.8 (6.3-8.2) g/dL Albumin 3.9 (3.5-5.1) g/dL Urine Color (Yellow) Urine Appearance (Clear) Urine pH (5.0-9.0) Ur Specific [place] (1.001-1.035) Urine Protein (Negative) mg/dL Urine Glucose (UA) (Negative) mg/dL Urine Ketones (Negative) mg/dL Ur Blood (Man) (Negative) Urine Nitrate (Negative) Urine Bilirubin (Negative) Urine Urobilinogen (<2.0) mg/dL Leukocyte Esterase Rfl (Negative) MALAIKA/UL Urine RBC (0-2) /hpf Urine WBC (0-3) /hpf Ur Squamous Epith Cells (Few) /hpf Urine Bacteria /hpf Urine Casts Nasal MRSA (PCR) (NOT DETECTE) Vancomycin Trough (10.0-20.0) ug/mL Random Vancomycin 16.7 (10-20) ug/mL Hep Bs Antigen (Negative) Hep Bs Antibody <Gino Phipps MD - Last Filed: 06/05/25 07:20> Imaging Data Radiologist's impression: ITS Impressions Abdomen/Pelvis CT 05/27/25 17:56 IMPRESSION: Scrotal abscesses detailed above with cellulitis. Incidental findings above. <Sara Bolden PA-C - Last Filed: 05/27/25 21:50> Critical Care Time Critical Care Time Critical Care Time: No <Sara Bolden PA-C - Last Filed: 05/27/25 21:50> Discharge Plan Discharge Clinical Impression: Scrotal abscess <Sara Bolden PA-C - Last Filed: 05/27/25 21:50> Patient Disposition: Still a Patient <Sara Bolden PA-C - Last Filed: 05/27/25 21:50> Condition: Stable <Sara Bolden PA-C - Last Filed: 05/27/25 21:50>
[2025-05-27 16:29] LABS: Hematocrit 33.9 % (42.0-52.0); Hemoglobin 10.7 g/dL (14.0-18.0); Immature Granulocyte Percent A 0.4 % (0-0.5); Lymphocytes Absolute Auto 0.87 K/mm3 (0.9-3.2); Mean Corpuscular HGB Conc 31.6 g/dl (32-36); Mean Corpuscular Hemoglobin 25.8 pg (26-34); Mean Corpuscular Volume 81.7 fl (80-100); Nucleated Red Blood Cells Absolute Auto 0.000 K/mm3 (0.0-0.012); Nucleated Red Blood Cells Perc 0.0 % (0.0-0.2); Platelet Count Result 206 k/mm3 (150-375); Red Blood Count 4.15 M/mm3 (4.6-6.20); White Blood Count 15.8 K/mm3 (4.5-10.0)
[2025-05-27 16:46] LABS: Anion Gap 14 mmol/L (4-12); Blood Urea Nitrogen 47 mg/dL (9-20); CRP 8.6 mg/dL (<1.0); Calcium 9.2 mg/dL (8.4-10.2); Carbon Dioxide 26 mmol/L (22-30); Chloride 91 mmol/L (98-107); Estimated CRCL calculation 14 ml/min; Estimated Glomerular Filt Rate 7; Glucose 424 mg/dL (65-110); Potassium 4.6 mmol/L (3.4-5.0); Sodium 131 mmol/L (137-145)
[2025-05-27 16:49] LABS: Add Urine Microscopic? YES; Appearance Urine Clear (Clear); Glucose Urine UA 3+ mg/dL (Negative); Leukocyte Esterase Ur 1+ LEU/UL (Negative); Nitrate Urine Negative (Negative); Non Pathogenic Casts 0-2; Specific Grav Ur 1.016 (1.001-1.035)
[2025-05-27] MEDS: CEFEPIME 1 GM in SODIUM CHLORIDE 0.9% IV 50 ML 100 ML IVPB (18:51)
--- NOTE | 2025-05-27 19:06 | P.CONUR_ITS ---
Assessment and Plan Assessment and plan (1) Scrotal abscess: Code(s): N49.2 - Inflammatory disorders of scrotum Status: Acute Assessment and Plan: His abscess has not responded to oral antibiotics. I see no area to drain on exam today. Admit to the medical service for IV antibiotics. Urology will re- examine tomorrow. Urology Consult Note HPI Date Seen: 05/27/25 Primary Care Provider: Franky Brewer, Consult Narrative Narrative: Jose Jara is a 55 year old male who has been on clindamycin for a possible scrotal infection. The swelling has worsened, so he came to the ER. His WBC was elevated. CT scan showed possible scrotal abscess. I reviewed the scan. There is thickened scrotal skin. I see the possible abscess areas. There is no free air. Review of Systems 2 Review of Systems: All systems reviewed & are unremarkable except as noted in HPI and below PMFSH Past Medical History Medical History (Updated 05/27/25 @ 19:10 by Bruce Pulido MD) Obesity (BMI 30.0-34.9) Diabetic retinopathy Type 2 diabetes mellitus Hyperlipidemia Hypertension Surgical History Surgical History (Updated 10/07/23 @ 07:36 by Oralia Newsome DO) Proliferative diabetic retinopathy with history of surgery Family History Family History (Updated 10/07/23 @ 07:39 by Oralia Newsome DO) Mother Thyroid disease Sibling Thyroid disease Father Diabetes mellitus End stage renal disease Hypertension Social History Social History (Updated 10/13/23 @ 11:09 by Yamile Patel MA) Social History: Patient lives at home with his 24 years. 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 They have (I think he has had 2 children) who are healthy. He is a lifelong nonsmoker. He does not have any significant out alcohol or illicit substance use history. Code status: Full code Surrogate decision maker: Smoking status: Never smoker Alcohol intake: never Substance use: never Do You Feel Safe in your Home?: Yes Lack of Transportation: No Lack of Food: Never True Current Housing: I Have Housing Concerned About Future Housing: No Difficulty Paying Gas/Electric Bills: No Difficulty Paying for Meds: No Currently Unemployed: No Education: Associate Degree Difficulty w/ Childcare or Family Care: No Living arrangements: with family Occupation/Education: occupation Gender identity (if verbalized by the patient): Male Sexual Orientation (if Verbalized by the Patient): Straight or Heterosexual Spiritual care concerns: No Meds Home Medications and Allergies Home Medications ?Medication ?Instructions ?Recorded ?Confirmed ?Type calcium carbonate (Oyster Shell 1,500 mg (3 x 500 mg c alcium 10/10/23 10/13/23 Rx Calcium 500) (1,250 mg)) PO TIDWM #90 tab s ergocalciferol (vitamin D2) 1,250 1,250 mcg PO WEEKLY #5 caps 10/10/23 10/13/23 Rx mcg (50,000 unit) capsule metoprolol tartrate 25 mg tablet 25 mg PO Q12HR #60 ta bs 10/10/23 10/13/23 Rx nifedipine 30 mg tablet,extended 30 mg PO QAM #30 tabs 10/10/23 10/13/23 Rx release 24 hr (Procardia XL) Allergies Allergy/AdvReac Type Severity Reaction Status Date / Time No Known Allergies Allergy Unknown Verified 05/27/25 13:44 Vital Signs Vital Signs - 24 hr 05/27/25 13:46 Temperature 37.2 C Pulse Rate 102 H Respiratory Rate 16 Blood Pressure 168/100 H Pulse Oximetry 100 Exam 2 Narrative: resting comfortably Const: General: cooperative, healthy appearing and comfortable HENMT: Head: normal to inspection Eyes: General: appearance normal, both eyes and all related structures Chest: Chest palpation & inspection: normal inspection of the chest : Other: there is induration on the right side of the scrotum in the perineum. There is no crepitus. The testis and epididymis are normal. Neuro: General: oriented to person, oriented to place and oriented to time Psych: Appearance: grossly normal and well kempt Mental Status: mental status grossly normal Speech and movement: Normal speech and movement present Results Labs 05/27/25 16:21 05/27/25 16:21 Labs: Short CBC 05/27/25 Range/Units 16:21 WBC 15.8 H (4.5-10.0) K/mm3 Hgb 10.7 L (14.0-18.0) g/dL Hct 33.9 L (42.0-52.0) % Plt Count 206 (150-375) k/mm3 BMP 05/27/25 16:21 Sodium 131 L Potassium 4.6 Chloride 91 L Carbon Dioxide 26 BUN 47 H D Creatinine 7.96 H Glucose 424 H Calcium 9.2 Urine 05/27/25 Range/Units 16:40 Urine Color Yellow (Yellow) Urine Appearance Clear (Clear) Urine pH 5.5 (5.0-9.0) Ur Specific [place] 1.016 (1.001-1.035) Urine Protein 2+ H (Negative) mg/dL Urine Glucose (UA) 3+ H (Negative) mg/dL
[2025-05-27] MEDS: metroNIDAZOLE 500 MG/ISO 100ML 500 MG/100 ML BAG 100 MG IVPB (19:38)
[2025-05-27] MEDS: ACETAMINOPHEN 500 MG TABLET 1000 MG PO (19:38)
[2025-05-27 19:39] VITALS: BP 165/84; PULSE 98; RESP 15; O2SAT 99
[2025-05-27] MEDS: VANCOMYCIN 2,000 MG/NS 500 ML 2,000 MG/500 ML BAG 250 MG IVPB (20:44)
--- NOTE | 2025-05-27 22:12 | P.HP_ITS ---
H&P: HPI History of Present Illness Date/Time: 05/27/25 22:13 Chief Complaint: Scrotal cellulitis Narrative: A pleasant 55-year-old male presenting with worsening pain and swelling of his scrotal right side presented to [facility] on 05/27/2025. Ten days prior to admission he does have little area of induration on his scrotal sac. There was a little bit of drainage at that time. Was given clindamycin by PCP. Symptoms have worsened. History of ESRD on dialysis Wednesday follows with Dr. Arriola, hypertension, [id number] diabetes mellitus. ER evaluation demonstrates WBC 15.8, serum creatinine 7.96, last had dialysis on Wednesday05/26/2025, abdomen pelvis CT with contrast demonstrating scrotal abscesses largest on right side with cellulitis. Patient seen by Urology. Given metronidazole cefepime and vancomycin. Review of Systems Review of Systems: All systems reviewed & are unremarkable except as noted in HPI and below (Subjective) [facility] Past Medical History Medical History (Updated 05/27/25 @ 21:50 by Sara Bolden PA-C) Obesity (BMI 30.0-34.9) Diabetic retinopathy Type 2 diabetes mellitus Hyperlipidemia Hypertension Surgical History Surgical History (Updated 10/07/23 @ 07:36 by Oralia Newsome DO) Proliferative diabetic retinopathy with history of surgery Family History Family History (Updated 10/07/23 @ 07:39 by Oralia Newsome DO) Mother Thyroid disease Sibling Thyroid disease Father Diabetes mellitus End stage renal disease Hypertension Social History Social History (Updated 10/13/23 @ 11:09 by Yamile Patel MA) Social History: Patient lives at home with his 24 years. 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 They have (I think he has had 2 children) who are healthy. He is a lifelong nonsmoker. He does not have any significant out alcohol or illicit substance use history. Code status: Full code Surrogate decision maker: Smoking status: Never smoker Alcohol intake: never Substance use: never Do You Feel Safe in your Home?: Yes Lack of Transportation: No Lack of Food: Never True Current Housing: I Have Housing Concerned About Future Housing: No Difficulty Paying Gas/Electric Bills: No Difficulty Paying for Meds: No Currently Unemployed: No Education: Associate Degree Difficulty w/ Childcare or Family Care: No Living arrangements: with family Occupation/Education: occupation Gender identity (if verbalized by the patient): Male Sexual Orientation (if Verbalized by the Patient): Straight or Heterosexual Spiritual care concerns: No Meds Home Medications and Allergies Home Medications ?Medication ?Instructions ?Recorded ?Confirmed ?Type calcium carbonate (Oyster Shell 1,500 mg (3 x 500 mg c alcium 10/10/23 10/13/23 Rx Calcium 500) (1,250 mg)) PO TIDWM #90 tab s ergocalciferol (vitamin D2) 1,250 1,250 mcg PO WEEKLY #5 caps 10/10/23 10/13/23 Rx mcg (50,000 unit) capsule metoprolol tartrate 25 mg tablet 25 mg PO Q12HR #60 ta bs 10/10/23 10/13/23 Rx nifedipine 30 mg tablet,extended 30 mg PO QAM #30 tabs 10/10/23 10/13/23 Rx release 24 hr (Procardia XL) Allergies Allergy/AdvReac Type Severity Reaction Status Date / Time No Known Allergies Allergy Unknown Verified 05/27/25 13:44 Vital Signs Vital Signs - 24 hr 05/27/25 13:46 05/27/25 19:39 Temperature 98.9 F Pulse Rate 102 H 98 Respiratory Rate 16 15 Blood Pressure 168/100 H 165/84 H Pulse Oximetry 100 99 Exam Const: General: comfortable and no acute distress Other: A&O x3 HENMT: Mouth: Yes moist mucous membranes Neck: Neck: supple Resp: Effort & Inspection: normal respiratory effort Auscultation: clear to auscultation bilaterally Cardio: Rate: regular rate Rhythm: regular rhythm Heart sounds: no gallops, no murmurs and no rubs GI: Inspection: non-distended GI Palp: Yes Soft to palpation : Other: Scrotal sac edematous right greater than left, no drainage, no open lesion, warm to touch, tender to palpation. Left upper arm AV fistula Extrem: General: no edema H&P: Results Labs Labs: Short CBC 05/27/25 Range/Units 16:21 WBC 15.8 H (4.5-10.0) K/mm3 Hgb 10.7 L (14.0-18.0) g/dL Hct 33.9 L (42.0-52.0) % Plt Count 206 (150-375) k/mm3 BMP 05/27/25 16:21 Sodium 131 L Potassium 4.6 Chloride 91 L Carbon Dioxide 26 BUN 47 H D Creatinine 7.96 H Glucose 424 H Calcium 9.2 Urine 05/27/25 Range/Units 16:40 Urine Color Yellow (Yellow) Urine Appearance Clear (Clear) Urine pH 5.5 (5.0-9.0) Ur Specific [place] 1.016 (1.001-1.035) Urine Protein 2+ H (Negative) mg/dL Urine Glucose (UA) 3+ H (Negative) mg/dL Assessment and Plan Assessment and plan (1) Scrotal abscess: Code(s): N49.2 - Inflammatory disorders of scrotum Status: Acute Plan A pleasant 55-year-old male presenting with worsening pain and swelling of his scrotal right side presented to [facility] on 05/27/2025. Ten days prior to admission he does have little area of induration on his scrotal sac. There was a little bit of drainage at that time. Was given clindamycin by PCP. Symptoms have worsened. History of ESRD on dialysis Wednesday follows with Dr. Arriola, hypertension, [id number] diabetes mellitus. ER evaluation demonstrates WBC 15.8, serum creatinine 7.96, last had dialysis on Wednesday05/26/2025, abdomen pelvis CT with contrast demonstrating scrotal abscesses largest on right side with cellulitis. Patient seen by Urology. Given metronidazole cefepime and vancomycin. ----- Continue cefepime metronidazole and vancomycin. Urology to see again tomorrow on 05/28/2025. Blood and urine cultures pending. Nephrology consult, currently euvolemic, continue with regular dialysis schedule. Monitor blood pressure. SCDs. Patient wished to be full code. Saline lock IV. Hospitalist [facility] Advance Care Plan I have confirmed that the patient's Advanced Care Plan is present, code status is documented, or surrogate decision maker is listed in patient medical record.: Yes Medication Reconciliation I have utilized all available resources to obtain, update and review the patients current medications (includes all prescriptions, OTC, herbals, cannabis, and nutritional supplements).: Yes
[2025-05-27 22:40] VITALS: BP 147/79; PULSE 96; RESP 15; O2SAT 97
[2025-05-27 22:48] VITALS: BP 147/79; PULSE 96; RESP 15; O2SAT 97
[2025-05-27 23:19] VITALS: BP 147/74; PULSE 98; RESP 20; TEMP 37.1; O2SAT 99
[2025-05-27 23:27] VITALS: BMI 31.6
[2025-05-28 04:00] VITALS: BP 160/51; PULSE 93; RESP 18; TEMP 37.9; O2SAT 95
[2025-05-28] MEDS: metroNIDAZOLE 500 MG/ISO 100ML 500 MG/100 ML BAG 100 MG IVPB ×3 (05:24→21:14)
[2025-05-28 05:36] LABS: Hematocrit 32.2 % (42.0-52.0); Hemoglobin 10.2 g/dL (14.0-18.0); Immature Granulocyte Percent A 0.7 % (0-0.5); Lymphocytes Absolute Auto 0.76 K/mm3 (0.9-3.2); Mean Corpuscular HGB Conc 31.7 g/dl (32-36); Mean Corpuscular Hemoglobin 26.1 pg (26-34); Mean Corpuscular Volume 82.4 fl (80-100); Nucleated Red Blood Cells Absolute Auto 0.000 K/mm3 (0.0-0.012); Nucleated Red Blood Cells Perc 0.0 % (0.0-0.2); Platelet Count Result 187 k/mm3 (150-375); Red Blood Count 3.91 M/mm3 (4.6-6.20); White Blood Count 16.2 K/mm3 (4.5-10.0)
[2025-05-28 05:52] LABS: Estimated CRCL calculation 13 ml/min; Estimated Glomerular Filt Rate 7; Magnesium 1.9 mg/dL (1.6-2.3)
[2025-05-28 06:36] LABS: Hepatitis B Surface Antigen Negative (Negative)
[2025-05-28] MEDS: INSULIN ASPART (*BKC) 100 UNITS/ML SUB-Q ×4 (08:26→21:13)
--- NOTE | 2025-05-28 09:01 | P.PNIM_ITS ---
Progress Note: A&P Assessment and Plan (1) Scrotal abscess: Code(s): N49.2 - Inflammatory disorders of scrotum Status: Acute Assessment and Plan: Worsening pain and swelling of his scrotal right side, 10 days prior to admission he had an area of induration on his scrotal sac with a bit of drainage, given clindamycin by PCP. Despite abx, symptoms continued to worsen. Not meeting sepsis criteria Abdomen/pelvis CT: scrotum with rim-enhancing abscesses the largest on the right side measuring 2 x 2.2 cm with induration of the remaining soft tissues but no gross air within the soft tissues themselves. Antibiotics: vanc, cefe, flagyl started on 05/27 Urine culture pending Blood culture pending Urology consulted Dr. Ling to assess scrotum today for possibly abscess drainage vs continued Abx management Borderline fever on vitals with uptrending WBC on am labs. Remains on antibiotics as above. Awaiting further recommendations per urology. 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 Qualified Code(s): E11.21 - Type 2 diabetes mellitus with diabetic nephropathy Code(s): E11.9 - Type 2 diabetes mellitus without complications Status: Chronic Assessment and Plan: - hypoglycemia protocol - POC blood glucose ACHS - home medication - lantus 25 units daily, aspart 10 units TID - correct regimen ordered - Lantus 20 units and aspart 8 units TIDWM (20% of baseline regimen), SSI - A1c ordered (3) Hypertension: Qualifiers: Hypertension type: unspecified Qualified Code(s): I10 - Essential (primary) hypertension Code(s): I10 - Essential (primary) hypertension Status: Chronic Assessment and Plan: Chronic, continue home medications - lisinopril 20 mg daily and lasix 80 mg daily - blood pressure reviewed and remain stable, continue to monitor (4) End stage renal disease: Code(s): N18.6 - End stage renal disease Status: Acute Assessment and Plan: Chronic HD on wednesday, , wednesday Followed by Dr. Arriola Nephrology consulted for dialysis Time Spent With Patient Time with patient: 25 - 35 minutes Subjective Date/time seen: 05/28/25 09:01 Interval history: 55 year old male with past medical history of ESRD on HD T,TR, Sat (follows Dr. Arriola), HTN, and DM presents to the hospital for worsening pain and swelling of his scrotal right side. Patient is pleasant sitting up comfortably in bed with family at bedside. Continues to endorse increased pain to the scrotal region that he relates to increased swelling. Denies any active drainage, urinary retention, dysuria, and burning sensation. Patient also endorses a headache but denies any vision changes or neurological deficits. Patient has no other complaints denying chest pain, shortness a breath, palpitations, nausea/vomiting, abdominal pain. Review of Systems Review of Systems: All systems reviewed & are unremarkable except as noted in HPI and below (Subjective) Exam Narrative: AF HR 89 RR 16 Spo2 89 BP 122/64 General: male in no acute respiratory distress who is nontoxic appearing, lying semi recumbent in bed. HEENT: Normocephalic. Atraumatic. Extraocular movement intact. Sclera clear and anicteric. No facial asymmetry. Chest: Lungs are clear to auscultation bilaterally. No wheezes or crackles. CV: Heart was regular rate and rhythm. Abd: Abdomen was soft. Nontender. Nondistended. Positive bowel sounds. : scrotal swelling R>L without warmth, drainage or wounds noted. Ext: No clubbing, cyanosis, or edema. DP pulses bilaterally. Neuro: Patient is alert and oriented x4. Speech is clear. Objective Data Vital Signs Vital Signs: Vital Signs - 24 hr 05/27/25 13:46 05/27/25 19:39 05/27/25 22:40 Temperature 98.9 F Pulse Rate 102 H 98 96 Respiratory Rate 16 15 15 Blood Pressure 168/100 H 165/84 H 147/79 H Pulse Oximetry 100 99 97 Oxygen Delivery 05/27/25 22:48 05/27/25 23:19 05/28/25 00:18 Temperature 98.8 F Pulse Rate 96 98 Respiratory Rate 15 20 Blood Pressure 147/79 H 147/74 H Pulse Oximetry 97 99 Oxygen Delivery Room Air 05/28/25 04:00 Temperature 100.3 F H Pulse Rate 93 Respiratory Rate 18 Blood Pressure 160/51 H Pulse Oximetry 95 Oxygen Delivery Intake/Output Intake/Output: Intake & Output 05/25/25 05/26/25 05/27/25 05/28/25 23:59 23:59 23:59 23:59 Intake Total 650 390 Balance 650 390 Meds/Results Medications: Active Medications Generic Name Dose Route Start Last Admin Trade Name Freq PRN Reason Stop Dose Admin Dextrose 12.5 gm 05/27/25 22:05 Dextrose 50% 25 Gm/50 Ml Syringe IV PUSH PRN PRN Hypoglycemia Protocol Glucose 15 gm 05/27/25 22:05 Glucose Oral Gel 15 Gm Of Glucse In 37.5 Gm Tube PO PRN PRN Hypoglycemia Protocol Dextrose 1,000 mls @ 100 mls/hr 05/27/25 22:05 Dextrose 5% 1,000 Ml IVPB PRN PRN Hypoglycemia Protocol Metronidazole 500 mg in 100 mls @ 100 mls/hr 05/28/25 06:00 05/28/25 05:24 Flagyl 500 Mg/Iso Soln 100 Ml IVPB 100 mls/hr Q8HR TITO Administration Cefepime HCl 1 gm/ Sodium 50 mls @ 100 mls/hr 05/28/25 19:00 Chloride IVPB Q24H TIOT Vancomycin HCl 750 mg in 250 mls @ 250 mls/hr 05/28/25 14:00 Vancomycin 750 Mg/Ns 250 Ml IVPB 05/28/25 14:59 ONCE ONE Insulin Aspart 2 - 5 units 05/28/25 08:00 05/28/25 08:26 Insulin Aspart (*Bkc) 100 Units/Ml SUB-Q 3 units TIDWM TITO Administration Protocol Insulin Aspart 1 - 2 units 05/28/25 21:00 Insulin Aspart (*Bkc) 100 Units/Ml SUB-Q HS TITO Protocol Vancomycin HCl 1 each 05/27/25 18:48 Vancomycin For Hemodialysis IVPB PRN PRN Vancomycin Protocol Radiology Results: ITS Impressions Abdomen/Pelvis CT 05/27/25 17:56 IMPRESSION: Scrotal abscesses detailed above with cellulitis. Incidental findings above. Labs Labs: Laboratory Results - last 24 hr 05/27/25 05/27/25 05/27/25 16:21 16:40 20:40 WBC 15.8 H RBC 4.15 L Hgb 10.7 L Hct 33.9 L MCV 81.7 MCH 25.8 L MCHC 31.6 L RDW 15.0 H Plt Count 206 MPV 11.3 H Immature Gran % (Auto) 0.4 Neut % (Auto) 88.9 H Lymph % (Auto) 5.5 L [place] % (Auto) 4.9 Eos % (Auto) 0.1 Baso % (Auto) 0.2 Lymph # (Auto) 0.87 L [place] # (Auto) 0.8 H Eos # (Auto) 0.0 Baso # (Auto) 0.0 Abs Immat Gran (auto) 0.07 H Absolute Neuts (auto) 14.0 H Absolute Nucleated RBC 0.000 Nucleated RBC % 0.0 ESR 107 H Sodium 131 L Potassium 4.6 Chloride 91 L Carbon Dioxide 26 Anion Gap 14 H BUN 47 H D Creatinine 7.96 H Estim Creat Clear Calc 14 Estimated GFR 7 L Glucose 424 H POC Capillary Glucose Lactic Acid 1.7 Calcium 9.2 Magnesium C-Reactive Protein 8.6 H Urine Color Yellow Urine Appearance Clear Urine pH 5.5 Ur Specific [place] 1.016 Urine Protein 2+ H Urine Glucose (UA) 3+ H Urine Ketones Negative Ur Blood (Man) 1+ H Urine Nitrate Negative Urine Bilirubin Negative Urine Urobilinogen 0.2 Leukocyte Esterase Rfl 1+ H Urine RBC 0-2 Urine WBC 21-50 H Ur Squamous Epith Cells None seen Urine Bacteria None seen Urine Casts 0-2 Vancomycin Trough < 5.0 L Random Vancomycin Hep Bs Antigen 05/28/25 05/28/25 05:23 07:35 WBC 16.2 H RBC 3.91 L Hgb 10.2 L Hct 32.2 L MCV 82.4 MCH 26.1 MCHC 31.7 L RDW 15.1 H Plt Count 187 MPV 11.6 H Immature Gran % (Auto) 0.7 H Neut % (Auto) 88.0 H Lymph % (Auto) 4.7 L [place] % (Auto) 6.2 Eos % (Auto) 0.2 Baso % (Auto) 0.2 Lymph # (Auto) 0.76 L [place] # (Auto) 1.0 H Eos # (Auto) 0.0 Baso # (Auto) 0.0 Abs Immat Gran (auto) 0.11 H Absolute Neuts (auto) 14.3 H Absolute Nucleated RBC 0.000 Nucleated RBC % 0.0 ESR Sodium Potassium Chloride Carbon Dioxide Anion Gap BUN Creatinine 8.19 H Estim Creat Clear Calc 13 Estimated GFR 7 L Glucose POC Capillary Glucose 297 H Lactic Acid Calcium Magnesium 1.9 C-Reactive Protein Urine Color Urine Appearance Urine pH Ur Specific [place] Urine Protein Urine Glucose (UA) Urine Ketones Ur Blood (Man) Urine Nitrate Urine Bilirubin Urine Urobilinogen Leukocyte Esterase Rfl Urine RBC Urine WBC Ur Squamous Epith Cells Urine Bacteria Urine Casts Vancomycin Trough Random Vancomycin 23.4 H Hep Bs Antigen Negative Quality VTE Prophylaxis VTE prophylaxis: mechanical ordered
[2025-05-28 09:31] LABS: MRSA (PCR) NOT DETECTED (NOT DETECTE)
[2025-05-28 09:33] LABS: Hepatitis B Surface Anti Res Indeterminate
[2025-05-28 10:14] VITALS: TEMP 37.9
--- NOTE | 2025-05-28 10:21 | P.PNUR_ITS ---
Progress Note: A&P Assessment and Plan (1) Scrotal abscess: Code(s): N49.2 - Inflammatory disorders of scrotum <LINDA Barth - Last Filed: 05/28/25 16:34> Status: Acute <LINDA Barth - Last Filed: 05/28/25 16:34> Assessment and Plan: - WBC remains elevated at 16.2; continue IV Abx - UCx pending; if it grows out bacteria transition to sensitivity driven Abx - On exam, induration seems stable as compared to yesterday - Dr. Ling to assess scrotum today for possibly abscess drainage vs continued Abx management <LINDA Barth - Last Filed: 05/28/25 16:34> - WBC remains elevated at 16.2; continue IV Abx - On exam, induration seems stable as compared to yesterday. But not much improvement with antibiotic. Hard to tell if I feel anything drainable but definitely indurated and tender. CT scan it is more consistent with an abscess adam exam -NPO after midnight. Will re-evaluate in the morning. If not improved may need incision and drainage. Discussed plan with patient and he is in agreement. Does not seem to be making much symptomatic progress on antibiotics so intervention may be in order Patient was seen and examined by myself Isai Ling <Isai Ling MD - Last Filed: 05/28/25 16:32> Subjective Subjective Date/Time Seen: 05/28/25 10:21 <LINDA Barth - Last Filed: 05/28/25 16:34> Interval history: NAEO; resting comfortably in bed. Fevers, chills improving with the use of Abx. Does believe scrotal swelling as worsened since yesterday. <LINDA Barth - Last Filed: 05/28/25 16:34> NAEO; resting comfortably in bed. Fevers, chills improving with the use of Abx. Does believe scrotal swelling as worsened since yesterday. Has not had much improvement with 24 hours of antibiotics <Isai Ling MD - Last Filed: 05/28/25 16:32> Exam Narrative: Firmness and perineal area. No significant perineal erythema. No sign of necrosis. Not very fluctuant but 2 cm area is firm and tender CT scan reviewed and visualized <Isai Ling MD - Last Filed: 05/28/25 16:32> Objective Data Vital Signs Vital Signs: Vital Signs - 24 hr 05/27/25 13:46 05/27/25 19:39 05/27/25 22:40 Temperature 37.2 C Pulse Rate 102 H 98 96 Respiratory Rate 16 15 15 Blood Pressure 168/100 H 165/84 H 147/79 H Pulse Oximetry 100 99 97 Oxygen Delivery 05/27/25 22:48 05/27/25 23:19 05/28/25 00:18 Temperature 37.1 C Pulse Rate 96 98 Respiratory Rate 15 20 Blood Pressure 147/79 H 147/74 H Pulse Oximetry 97 99 Oxygen Delivery Room Air 05/28/25 04:00 05/28/25 08:00 05/28/25 10:14 Temperature 37.9 C H 37.9 C H Pulse Rate 93 Respiratory Rate 18 Blood Pressure 160/51 H Pulse Oximetry 95 Oxygen Delivery Room Air <LINDA Barth - Last Filed: 05/28/25 16:34> Intake/Output Intake/Output: Intake & Output 05/25/25 05/26/25 05/27/25 05/28/25 23:59 23:59 23:59 23:59 Intake Total 650 390 Balance 650 390 <LINDA Barth - Last Filed: 05/28/25 16:34> Meds/Results Medications: Active Medications Generic Name Dose Route Start Last Admin Trade Name Freq PRN Reason Stop Dose Admin Atorvastatin Calcium 20 mg 05/28/25 09:35 Atorvastatin 20 Mg Tablet PO DAILY TITO Dextrose 12.5 gm 05/27/25 22:05 Dextrose 50% 25 Gm/50 Ml Syringe IV PUSH PRN PRN Hypoglycemia Protocol Furosemide 80 mg 05/28/25 09:35 Furosemide 80 Mg Tablet PO DAILY TITO Glucose 15 gm 05/27/25 22:05 Glucose Oral Gel 15 Gm Of Glucse In 37.5 Gm Tube PO PRN PRN Hypoglycemia Protocol Dextrose 1,000 mls @ 100 mls/hr 05/27/25 22:05 Dextrose 5% 1,000 Ml IVPB PRN PRN Hypoglycemia Protocol Metronidazole 500 mg in 100 mls @ 100 mls/hr 05/28/25 06:00 05/28/25 05:24 Flagyl 500 Mg/Iso Soln 100 Ml IVPB 100 mls/hr Q8HR TITO Administration Cefepime HCl 1 gm/ Sodium 50 mls @ 100 mls/hr 05/28/25 19:00 Chloride IVPB Q24H [facility] Insulin Aspart 2 - 5 units 05/28/25 08:00 05/28/25 08:26 Insulin Aspart (*Bkc) 100 Units/Ml SUB-Q 3 units TIDWM [facility] Administration Protocol Insulin Aspart 1 - 2 units 05/28/25 21:00 Insulin Aspart (*Bkc) 100 Units/Ml SUB-Q HS [facility] Protocol Lisinopril 20 mg 05/28/25 09:35 Lisinopril 20 Mg Tablet PO DAILY [facility] Vancomycin HCl 1 each 05/27/25 18:48 Vancomycin For Hemodialysis IVPB PRN PRN Vancomycin Protocol <LINDA Barth - Last Filed: 05/28/25 16:34> Radiology Results: ITS Impressions Abdomen/Pelvis CT 05/27/25 17:56 IMPRESSION: Scrotal abscesses detailed above with cellulitis. Incidental findings above. <LINDA Barth - Last Filed: 05/28/25 16:34> Labs Labs: Laboratory Results - last 24 hr 05/27/25 05/27/25 05/27/25 16:21 16:40 20:40 WBC 15.8 H RBC 4.15 L Hgb 10.7 L Hct 33.9 L MCV 81.7 MCH 25.8 L MCHC 31.6 L RDW 15.0 H Plt Count 206 MPV 11.3 H Immature Gran % (Auto) 0.4 Neut % (Auto) 88.9 H Lymph % (Auto) 5.5 L [place] % (Auto) 4.9 Eos % (Auto) 0.1 Baso % (Auto) 0.2 Lymph # (Auto) 0.87 L [place] # (Auto) 0.8 H Eos # (Auto) 0.0 Baso # (Auto) 0.0 Abs Immat Gran (auto) 0.07 H Absolute Neuts (auto) 14.0 H Absolute Nucleated RBC 0.000 Nucleated RBC % 0.0 ESR 107 H Sodium 131 L Potassium 4.6 Chloride 91 L Carbon Dioxide 26 Anion Gap 14 H BUN 47 H D Creatinine 7.96 H Estim Creat Clear Calc 14 Estimated GFR 7 L Glucose 424 H POC Capillary Glucose Lactic Acid 1.7 Calcium 9.2 Magnesium C-Reactive Protein 8.6 H Urine Color Yellow Urine Appearance Clear Urine pH 5.5 Ur Specific [place] 1.016 Urine Protein 2+ H Urine Glucose (UA) 3+ H Urine Ketones Negative Ur Blood (Man) 1+ H Urine Nitrate Negative Urine Bilirubin Negative Urine Urobilinogen 0.2 Leukocyte Esterase Rfl 1+ H Urine RBC 0-2 Urine WBC 21-50 H Ur Squamous Epith Cells None seen Urine Bacteria None seen Urine Casts 0-2 Nasal MRSA (PCR) Vancomycin Trough < 5.0 L Random Vancomycin Hep Bs Antigen Hep Bs Antibody 05/28/25 05/28/25 05/28/25 05:23 07:35 08:11 WBC 16.2 H RBC 3.91 L Hgb 10.2 L Hct 32.2 L MCV 82.4 MCH 26.1 MCHC 31.7 L RDW 15.1 H Plt Count 187 MPV 11.6 H Immature Gran % (Auto) 0.7 H Neut % (Auto) 88.0 H Lymph % (Auto) 4.7 L [place] % (Auto) 6.2 Eos % (Auto) 0.2 Baso % (Auto) 0.2 Lymph # (Auto) 0.76 L [place] # (Auto) 1.0 H Eos # (Auto) 0.0 Baso # (Auto) 0.0 Abs Immat Gran (auto) 0.11 H Absolute Neuts (auto) 14.3 H Absolute Nucleated RBC 0.000 Nucleated RBC % 0.0 ESR Sodium Potassium Chloride Carbon Dioxide Anion Gap BUN Creatinine 8.19 H Estim Creat Clear Calc 13 Estimated GFR 7 L Glucose POC Capillary Glucose 297 H Lactic Acid Calcium Magnesium 1.9 C-Reactive Protein Urine Color Urine Appearance Urine pH Ur Specific [place] Urine Protein Urine Glucose (UA) Urine Ketones Ur Blood (Man) Urine Nitrate Urine Bilirubin Urine Urobilinogen Leukocyte Esterase Rfl Urine RBC Urine WBC Ur Squamous Epith Cells Urine Bacteria Urine Casts Nasal MRSA (PCR) Not detected Vancomycin Trough Random Vancomycin 23.4 H Hep Bs Antigen Negative Hep Bs Antibody Indeterminate <LINDA Barth - Last Filed: 05/28/25 16:34>
[2025-05-28] MEDS: FUROSEMIDE 80 MG TABLET PO (10:22)
[2025-05-28] MEDS: ATORVASTATIN 20 MG TABLET PO (10:22)
--- NOTE | 2025-05-28 12:18 | P.CONNP_ITS ---
Assessment and Plan Assessment and plan (1) End stage renal disease: Code(s): N18.6 - End stage renal disease Status: Acute Assessment and Plan: * HD tomorrow * continue outpatient dialysis schedule of //Wed while hospitalized * follow electrolytes, volume status, and clearance (2) Scrotal abscess: Code(s): N49.2 - Inflammatory disorders of scrotum Status: Acute Assessment and Plan: * as noted by clinical history and imaging: * worsening pain and swelling of his scrotal right side * 10 days prior to admission he had an area of induration on his scrotal sac with a bit of drainage * given clindamycin by PCP but symptoms continued to worsen * CT of abdomen/pelvis CT: scrotum with rim-enhancing abscesses the largest on the right side measuring 2 x 2.2 cm with induration of the remaining soft tissues but no gross air within the soft tissues themselves * Urology following * may need possible surgical intervention * follow culture data * on antibiotics (3) Anemia: Qualifiers: Anemia type: unspecified type Qualified Code(s): D64.9 - Anemia, unspecified Code(s): D64.9 - Anemia, unspecified Status: Chronic Assessment and Plan: * due to ESRD * likely worsened by acute illness/infection * Epogen with HD * follow trend of H/H (4) Hypertension: Qualifiers: Hypertension type: unspecified Qualified Code(s): I10 - Essential (primary) hypertension Code(s): I10 - Essential (primary) hypertension Status: Chronic Assessment and Plan: * reasonable control * follow trend of hemodynamics (5) Type 2 diabetes mellitus: Qualifiers: Diabetes mellitus complication detail: with nephropathy Diabetes mellitus complication status: with kidney complications Diabetes mellitus terminal system operator insulin use: without intermediate use Qualified Code(s): E11.21 - Type 2 diabetes mellitus with diabetic nephropathy Code(s): E11.9 - Type 2 diabetes mellitus without complications Status: Chronic Assessment and Plan: * follow accu-cheks * glycemic control per hospitalist I will continue to follow the patient with you while he remains hospitalized and make further recommendations as deemed necessary. Thank you for allowing me to participate in the care of this patient. L History of Present Illness Reason for Consult Consult date: 05/31/25 Reason for consult: end stage renal disease Chief Complaint Chief complaint: Scrotal abscess History of Present Illness Narrative: The patient is of 55-year-old male with a past medical history as outlined below who presented to [facility] Emergency Room with complaints of increasing pain and swelling in his scrotal area. According to the patient, approximately 10 days ago prior to his presentation to the ER he had an area of induration on his scrotal sac. There apparent was a little bit of drainage at that time. The pain was tolerable and there was not any significant swelling present. He went to see his primary care physician and was given prescription for clindamycin for treatment of all was suspected to be scrotal cellulitis. Unfortunately, despite oral antibiotic therapy, he has noticed increased pain and swelling which has been quite uncomfortable. He denies any overt fevers, chills, nausea, vomiting, diarrhea, abdominal pain, dizziness, or palpitations. Given the worsening clinical symptoms as mentioned, he presented to the ER for further assessment. Workup and evaluation emergency room demonstrated the patient to be hemodynamically stable and afebrile. Routine blood test demonstrated elevated white blood cell count of 15.8, hemoglobin 10.7, platelet count 206, sodium 131, potassium 4.6, chloride 91, bicarb 26, BUN 47 creatinine 7.96, with a glucose of 424, calcium 9.2, lactic acid 1.7, and C-reactive protein 8.6. His urinalysis was significant for 2+ protein, 3+ glucose, 1+ blood and 1+ leukocyte esterase with 21-[address] scan of the abdomen pelvis was done which demonstrated evidence of scrotal abscesses with associated cellulitis. Urology was consulted from the emergency room and after appropriate cultures were obtained, he was started on IV antibiotics and subsequently admitted to the hospital for further evaluation therapy. Since his admission to the hospital, he has been seen by Urology with a concerns that he may require possible surgical intervention with regard to his scrotal abscess as there has only been limited improvement with just IV antibiotics. Renal consultation was requested due to his end-stage renal disease. The patient will be dialyzed on a Wednesday, , Wednesday dialysis schedule at [facility] dialysis under the care of Dr. Lee Arriola. He has been on dialysis for approximately a year and a half with the etiology of his kidney disease being secondary to his hypertension and diabetes. From a dialysis standpoint, the patient is compliant with his dialysis treatments although there are times when he has significant fluid gains in between his dialysis treatments which is difficult to remove/achieve his dry weight. His last dialysis treatment was on 05/26/2025, and as far as I am aware, was otherwise uneventful. He is next due for dialysis tomorrow. Currently, at the time my evaluation, he appears to be in no acute distress. Review of Systems 2 Review of Systems: As per HPI. [facility] Past Medical History Medical History End stage renal disease Obesity (BMI 30.0-34.9) Diabetic retinopathy Type 2 diabetes mellitus Hyperlipidemia Hypertension Surgical History Surgical History Proliferative diabetic retinopathy with history of surgery Family History Family History Mother Thyroid disease Sibling Thyroid disease Father Diabetes mellitus End stage renal disease Hypertension Social History Social History Social History: Patient lives at home with his 24 years. 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 They have (I think he has had 2 children) who are healthy. He is a lifelong nonsmoker. He does not have any significant out alcohol or illicit substance use history. Code status: Full code Surrogate decision maker: Smoking status: Never smoker Alcohol intake: never Substance use: never Do You Feel Safe in your Home?: Yes Lack of Transportation: No Lack of Food: Never True Current Housing: I Have Housing Concerned About Future Housing: No Difficulty Paying Gas/Electric Bills: No Difficulty Paying for Meds: No Currently Unemployed: No Education: High School Diploma/GED Difficulty w/ Childcare or Family Care: No Living arrangements: with family Occupation/Education: occupation Gender identity (if verbalized by the patient): Male Sexual Orientation (if Verbalized by the Patient): Straight or Heterosexual Spiritual care concerns: No Meds Home Medications and Allergies Home Medications ?Medication ?Instructions ?Recorded ?Confirmed ?Type atorvastatin 20 mg tablet 20 mg PO DAILY 05/27/2505/09 History calcium carbonate ([place] 500 mg PO DAILY 05/27/25 History Calcium 500) ergocalciferol (vitamin D2) 1,250 1,250 mcg PO DAILY 1 019/25 10/19/25 History mcg (50,000 unit) capsule furosemide 80 mg tablet 80 mg PO DAILY 05/27/2505/09 History insulin aspart U-100 100 unit/mL 10 unit subcut TID 05/27/25 History (3 mL) subcutaneous pen insulin glargine-yfgn 100 unit/mL 25 unit subcut DAILY @1000 05/27/25 05/27/25 History (3 mL) subcutaneous pen lisinopril 20 mg tablet 20 mg PO DAILY 05/27/2505/09 History Allergies Allergy/AdvReac Type Severity Reaction Status Date / Time No Known Allergies Allergy Unknown Verified 05/27/25 23:37 Vital Signs Vital Signs Temp Pulse Resp BP Pulse Ox O2 Del Method 05/28/25 10:14 100.2 F H 05/28/25 08:00 Room Air 05/28/25 04:00 100.3 F H 93 18 160/51 H 95 05/28/25 00:18 Room Air 05/27/25 23:19 98.8 F 98 20 147/74 H 99 05/27/25 22:48 96 15 147/79 H 97 05/27/25 22:40 96 15 147/79 H 97 05/27/25 19:39 98 15 165/84 H 99 Exam 2 Narrative: GENERAL APPEARANCE: well developed well nourished male in no acute distress HEENT: normocephalic, atraumatic, normal conjunctiva and sclera, nares patient NECK: no lymphadenopathy, thyromegaly, or JVD MOUTH: normal lips, teeth, and gums CARDIOVASCULAR: RRR, normal S1 and S2, no rub RESPIRATORY: clear to auscultation bilaterally ABDOMEN: soft, nontender, nondistended, positive bowel sounds present EXTREMITIES: no evidence of cyanosis, clubbing, no edema NEUROLOGICAL: alert and oriented x 3; CN II - XII intact bilaterally; no focal deficits noted Results Lab Results 05/31/25 05:07 05/31/25 05:07 Lab results: Most recent lab results Calcium 9.2 mg/dL (8.4-10.2) 05/27/25 16:21 Magnesium 1.9 mg/dL (1.6-2.3) 05/28/25 05:23
[2025-05-28] MEDS: traMADol HCL (*CRX) 25 MG TABLET PO ×2 (13:08→21:14)
[2025-05-28 14:00] VITALS: BP 122/64; PULSE 89; RESP 16; TEMP 37.4; O2SAT 95
[2025-05-28 16:30] LABS: Hemoglobin A1C 12.1 % (<5.7)
[2025-05-28] MEDS: CEFEPIME 1 GM in SODIUM CHLORIDE 0.9% IV 50 ML 100 ML IVPB (18:17)
[2025-05-28] MEDS: INSULIN ASPART (*BKC) 100 UNITS/ML 8 UNITS SUB-Q (18:18)
[2025-05-28 20:28] VITALS: BP 125/66; PULSE 94; RESP 20; TEMP 38.1; O2SAT 96
[2025-05-29] VITALS (13 sets, daily range): BP systolic 95–125; BP diastolic 50–68; PULSE 91–100; RESP 14–20; TEMP 36.3–37.3; O2SAT 91–100
[2025-05-29] MEDS: traMADol HCL (*CRX) 25 MG TABLET PO ×2 (06:02→22:45)
[2025-05-29] MEDS: metroNIDAZOLE 500 MG/ISO 100ML 500 MG/100 ML BAG 100 MG IVPB ×3 (06:03→21:17)
[2025-05-29 06:28] LABS: Hematocrit 30.1 % (42.0-52.0); Hemoglobin 9.5 g/dL (14.0-18.0); Mean Corpuscular HGB Conc 31.6 g/dl (32-36); Mean Corpuscular Hemoglobin 26.0 pg (26-34); Mean Corpuscular Volume 82.5 fl (80-100); Platelet Count Result 192 k/mm3 (150-375); Red Blood Count 3.65 M/mm3 (4.6-6.20); White Blood Count 19.2 K/mm3 (4.5-10.0)
[2025-05-29 06:48] LABS: Alanine Aminotransferase 14 U/L (6-50); Albumin Level 3.9 g/dL (3.5-5.1); Alkaline Phosphatase 84 U/L (38-126); Anion Gap 17 mmol/L (4-12); Aspartate Amino Transferase 20 U/L (17-59); Bilirubin,Total 0.5 mg/dL (0.2-1.3); Blood Urea Nitrogen 64 mg/dL (9-20); Calcium 8.3 mg/dL (8.4-10.2); Carbon Dioxide 21 mmol/L (22-30); Chloride 92 mmol/L (98-107); Estimated CRCL calculation 9 ml/min; Estimated Glomerular Filt Rate 5; Glucose 199 mg/dL (65-110); Potassium 4.5 mmol/L (3.4-5.0); Sodium 130 mmol/L (137-145); Total Protein 7.8 g/dL (6.3-8.2)
--- NOTE | 2025-05-29 07:50 | P.PNIM_ITS ---
Progress Note: A&P Assessment and Plan (1) Sepsis: Code(s): A41.9 - Sepsis, unspecified organism Status: Acute Assessment and Plan: Meets SIRS criteria: febrile with leukocytosis Lactic acid WNL Suspected source: scrotal abscess Urine culture pending Blood culture pending Abdomen/pelvis CT: scrotum with rim-enhancing abscesses the largest on the right side measuring 2 x 2.2 cm with induration of the remaining soft tissues but no gross air within the soft tissues themselves. Antibiotics: vanc, cefe, flagyl started on 05/27 See plan below (2) Scrotal abscess: Code(s): N49.2 - Inflammatory disorders of scrotum Status: Acute Assessment and Plan: Worsening pain and swelling of his scrotal right side, 10 days prior to admission he had an area of induration on his scrotal sac with a bit of drainage, given clindamycin by PCP. Despite abx, symptoms continued to worsen. Not meeting sepsis criteria Abdomen/pelvis CT: scrotum with rim-enhancing abscesses the largest on the right side measuring 2 x 2.2 cm with induration of the remaining soft tissues but no gross air within the soft tissues themselves. Antibiotics: vanc, cefe, flagyl started on 05/27 Urine culture pending Blood culture pending Urology consulted Plan for I&D of scrotal abscess today Worsening leukocytosis and now febrile with tmax 100.6. Plan for I&D today with urology to obtain source control. (3) End stage renal disease: Code(s): N18.6 - End stage renal disease Status: Acute Assessment and Plan: Chronic HD on wednesday, , wednesday Followed by Dr. Arriola Nephrology consulted for dialysis 05/29: Patient was scheduled for dialysis today at 1300 however this time was conflicting with the I&D needed for the worsening scrotal abscess. RN spoke with urology and if I&D not able to be performed today would likely need to be rescheduled for . Given that patient is growing septic likely related to the ongoing abscess discussed his need for dialysis today with nephrology Dr. Martin who is in agreement that the abscess can take precedent given that his fluid status and electrolytes are normal. Dr. Martin plans to have patient undergo dialysis first thing tomorrow morning. (4) Type 2 diabetes mellitus: Qualifiers: Diabetes mellitus complication detail: with nephropathy Diabetes mellitus complication status: with kidney complications Diabetes mellitus technician terminal and repeater insulin use: without fci use Qualified Code(s): E11.21 - Type 2 diabetes mellitus with diabetic nephropathy Code(s): E11.9 - Type 2 diabetes mellitus without complications Status: Chronic Assessment and Plan: - hypoglycemia protocol - POC blood glucose ACHS - home medication - lantus 25 units daily, aspart 10 units TID - correct regimen ordered - Lantus 20 units and aspart 8 units TIDWM (20% of baseline regimen), SSI - A1c 12.1 (5) Hypertension: Qualifiers: Hypertension type: unspecified Qualified Code(s): I10 - Essential (primary) hypertension Code(s): I10 - Essential (primary) hypertension Status: Chronic Assessment and Plan: Chronic, continue home medications - lisinopril 20 mg daily and lasix 80 mg daily - blood pressure reviewed and remain stable, continue to monitor Time Spent With Patient Time with patient: 25 - 35 minutes Subjective Date/time seen: 05/29/25 07:50 Interval history: 55 year old male with past medical history of ESRD on HD T,TR, Sat (follows Dr. Arriola), HTN, and DM presents to the hospital for worsening pain and swelling of his scrotal right side. Patient is pleasant lying comfortably in bed. He continues to endorse intermittent scrotal pain but denies any associated drainage or warmth. He states that pain is well controlled on the current regimen. He has no other complaints denying chest pain, shortness a breath, palpitations, nausea/vomiting and abdominal pain. Review of Systems Review of Systems: All systems reviewed & are unremarkable except as noted in HPI and below (Subjective) Exam Narrative: AF HR 91 RR 18 SpO2 95 BP 103/61 General: male in no acute respiratory distress who is nontoxic appearing, lying semi recumbent in bed. HEENT: Normocephalic. Atraumatic. Extraocular movement intact. Sclera clear and anicteric. No facial asymmetry. Chest: Lungs are clear to auscultation bilaterally. No wheezes or crackles. CV: Heart was regular rate and rhythm. Abd: Abdomen was soft. Nontender. Nondistended. Positive bowel sounds. : scrotal swelling R>L without warmth, drainage or wounds noted. Ext: No clubbing, cyanosis, or edema. DP pulses bilaterally. Neuro: Patient is alert. Speech is clear. Objective Data Vital Signs Vital Signs: Vital Signs - 24 hr 05/28/25 08:00 05/28/25 10:14 05/28/25 14:00 Temperature 100.2 F H 99.4 F Pulse Rate 89 Respiratory Rate 16 Blood Pressure 122/64 Pulse Oximetry 95 Oxygen Delivery Room Air 05/28/25 20:00 05/28/25 20:28 05/29/25 02:14 Temperature 100.6 F H 98.4 F Pulse Rate 94 Respiratory Rate 20 Blood Pressure 125/66 Pulse Oximetry 96 Oxygen Delivery Room Air 05/29/25 04:28 Temperature 99.2 F Pulse Rate 91 Respiratory Rate 18 Blood Pressure 103/61 Pulse Oximetry 95 Oxygen Delivery Intake/Output Intake/Output: Intake & Output 05/26/25 05/27/25 05/28/25 05/29/25 23:59 23:59 23:59 23:59 Intake Total 650 1170 0 Balance 650 1170 0 Meds/Results Medications: Active Medications Generic Name Dose Route Start Last Admin Trade Name Freq PRN Reason Stop Dose Admin Atorvastatin Calcium 20 mg 05/28/25 09:35 05/28/25 10:22 Atorvastatin 20 Mg Tablet PO 20 mg DAILY TITO Administration Dextrose 12.5 gm 05/27/25 22:05 Dextrose 50% 25 Gm/50 Ml Syringe IV PUSH PRN PRN Hypoglycemia Protocol Epoetin Jhonny-epbx 10,000 units 05/29/25 18:50 Epoetin Jhonny-Epbx 10,000 Units/Ml Vial IV PUSH 05/29/25 18:51 ONCE ONE Furosemide 80 mg 05/28/25 09:35 05/28/25 10:22 Furosemide 80 Mg Tablet PO 80 mg DAILY TITO Administration Glucose 15 gm 05/27/25 22:05 Glucose Oral Gel 15 Gm Of Glucse In 37.5 Gm Tube PO PRN PRN Hypoglycemia Protocol Dextrose 1,000 mls @ 100 mls/hr 05/27/25 22:05 Dextrose 5% 1,000 Ml IVPB PRN PRN Hypoglycemia Protocol Metronidazole 500 mg in 100 mls @ 100 mls/hr 05/28/25 06:00 05/29/25 06:03 Flagyl 500 Mg/Iso Soln 100 Ml IVPB 100 mls/hr Q8HR TITO Administration Cefepime HCl 1 gm/ Sodium 50 mls @ 100 mls/hr 05/28/25 19:00 05/28/25 18:17 Chloride IVPB 100 mls/hr Q24H TITO Administration Albumin Human 50 mls @ 999 mls/hr 05/29/25 06:50 Albutein IVPB 06/28/25 06:49 Q10M PRN HYPOTENSION Vancomycin HCl 1,000 mg/ 250 mls @ 250 mls/hr 05/29/25 15:00 Sodium Chloride IVPB 05/29/25 15:59 ONCE ONE Insulin Aspart 2 - 5 units 05/28/25 08:00 05/28/25 17:28 Insulin Aspart (*Bkc) 100 Units/Ml SUB-Q 3 units TIDWM TITO Administration Protocol Insulin Aspart 1 - 2 units 05/28/25 21:00 05/28/25 21:13 Insulin Aspart (*Bkc) 100 Units/Ml SUB-Q 1 units HS TITO Administration Protocol Insulin Aspart 8 units 05/28/25 18:20 05/28/25 18:18 Insulin Aspart (*Bkc) 100 Units/Ml SUB-Q 8 units TID TITO Administration Insulin Glargine 21 units 05/29/25 10:00 Insulin Glargine (*Bkc) 100 Units/Ml SUB-Q DAILY@1000 TITO Lidocaine/Prilocaine 1 each 05/29/25 06:50 Lidocaine/Prilocaine Cream 2.5-2.5% Tube TOPICAL WITH DIALYSIS PRN for dialysis Protocol Lisinopril 20 mg 05/28/25 09:35 05/28/25 10:22 Lisinopril 20 Mg Tablet PO 20 mg DAILY TITO Administration Tramadol HCl 25 mg 05/28/25 12:34 05/29/25 06:02 Tramadol Hcl (*Crx) 25 Mg Tablet PO 25 mg Q4H PRN Administration Pain Rated 4-6 Vancomycin HCl 1 each 05/27/25 18:48 Vancomycin For Hemodialysis IVPB PRN PRN Vancomycin Protocol Radiology Results: ITS Impressions Abdomen/Pelvis CT 05/27/25 17:56 IMPRESSION: Scrotal abscesses detailed above with cellulitis. Incidental findings above. Labs Labs: Laboratory Results - last 24 hr 05/28/25 05/28/25 05/28/25 05:16 05:23 08:11 WBC RBC Hgb Hct MCV MCH MCHC RDW Plt Count MPV Sodium Potassium Chloride Carbon Dioxide Anion Gap BUN Creatinine Estim Creat Clear Calc Estimated GFR Glucose POC Capillary Glucose Hemoglobin A1c 12.1 H Calcium Total Bilirubin AST ALT Alkaline Phosphatase Total Protein Albumin Nasal MRSA (PCR) Not detected Random Vancomycin Hep Bs Antibody Indeterminate 05/28/25 05/28/25 05/28/25 11:33 16:08 20:33 WBC RBC Hgb Hct MCV MCH MCHC RDW Plt Count MPV Sodium Potassium Chloride Carbon Dioxide Anion Gap BUN Creatinine Estim Creat Clear Calc Estimated GFR Glucose POC Capillary Glucose 316 H 259 H 245 H Hemoglobin A1c Calcium Total Bilirubin AST ALT Alkaline Phosphatase Total Protein Albumin Nasal MRSA (PCR) Random Vancomycin Hep Bs Antibody 05/29/25 05:15 WBC 19.2 H RBC 3.65 L Hgb 9.5 L Hct 30.1 L MCV 82.5 MCH 26.0 MCHC 31.6 L RDW 15.2 H Plt Count 192 MPV 11.6 H Sodium 130 L Potassium 4.5 Chloride 92 L Carbon Dioxide 21 L Anion Gap 17 H BUN 64 H D Creatinine 11.61 H Estim Creat Clear Calc 9 Estimated GFR 5 L Glucose 199 H POC Capillary Glucose Hemoglobin A1c Calcium 8.3 L Total Bilirubin 0.5 AST 20 ALT 14 Alkaline Phosphatase 84 Total Protein 7.8 Albumin 3.9 Nasal MRSA (PCR) Random Vancomycin 16.7 Hep Bs Antibody Quality VTE Prophylaxis VTE prophylaxis: mechanical ordered
--- NOTE | 2025-05-29 07:55 | PC.NURSE ---
RN received phone call from LINDA Sanchez and was told to keep patient as NPO and patient would be getting I&D and Dialysis today. There are time conflicts, so RN is calling Dr. Moran's exchange # to find out about times. Message left with exchange.
--- NOTE | 2025-05-29 08:19 | PC.NURSE ---
RN got the ok to give medicine with sips of water.
--- NOTE | 2025-05-29 09:02 | P.PNUR_ITS ---
Progress Note: A&P Assessment and Plan (1) Scrotal abscess: Code(s): N49.2 - Inflammatory disorders of scrotum Status: Acute Assessment and Plan: - No improvement in scrotal induration or pain with continued Abx use - White count rising to 19.2 this morning - Discussed with pt the indication for scrotal incision and drainage in the OR. Pt voices his understanding and agrees with plan. Reviewed surgical risks and benefits including but not limited to bleeding, infection, scar formation, need for repeat procedure and damage to the testicle or its vascular supply. Pt voices his understanding. - Maintain NPO status - Plan for scrotal incision and drainage with Dr. Nettles today Subjective Subjective Date/Time Seen: 05/29/25 09:02 Interval history: NAEO; pt resting comfortably in bed. Reports stable swelling and pain of the scrotum but no improvement with Abx use. Pt currently NPO for OR today. Exam Narrative: General: male in no acute respiratory distress who is nontoxic appearing, lying semi recumbent in bed. HEENT: Normocephalic. Atraumatic. Extraocular movement intact. Sclera clear and anicteric. No facial asymmetry. Chest: Lungs are clear to auscultation bilaterally. No wheezes or crackles. CV: Heart was regular rate and rhythm. Abd: Abdomen was soft. Nontender. Nondistended. Positive bowel sounds. : scrotal swelling R>L without warmth, drainage or wounds noted. Ext: No clubbing, cyanosis, or edema. DP pulses bilaterally. Neuro: Patient is alert and oriented x4. Speech is clear. Objective Data Vital Signs Vital Signs: Vital Signs - 24 hr 05/28/25 10:14 05/28/25 14:00 05/28/25 20:00 Temperature 37.9 C H 37.4 C Pulse Rate 89 Respiratory Rate 16 Blood Pressure 122/64 Pulse Oximetry 95 Oxygen Delivery Room Air 05/28/25 20:28 05/29/25 02:14 05/29/25 04:28 Temperature 38.1 C H 36.9 C 37.3 C Pulse Rate 94 91 Respiratory Rate 20 18 Blood Pressure 125/66 103/61 Pulse Oximetry 96 95 Oxygen Delivery Intake/Output Intake/Output: Intake & Output 05/26/25 05/27/25 05/28/25 05/29/25 23:59 23:59 23:59 23:59 Intake Total 650 1170 0 Balance 650 1170 0 Meds/Results Medications: Active Medications Generic Name Dose Route Start Last Admin Trade Name Freq PRN Reason Stop Dose Admin Atorvastatin Calcium 20 mg 05/28/25 09:35 05/28/25 10:22 Atorvastatin 20 Mg Tablet PO 20 mg DAILY TITO Administration Dextrose 12.5 gm 05/27/25 22:05 Dextrose 50% 25 Gm/50 Ml Syringe IV PUSH PRN PRN Hypoglycemia Protocol Epoetin Jhonny-epbx 10,000 units 05/29/25 18:50 Epoetin Jhonny-Epbx 10,000 Units/Ml Vial IV PUSH 05/29/25 18:51 ONCE ONE Furosemide 80 mg 05/28/25 09:35 05/28/25 10:22 Furosemide 80 Mg Tablet PO 80 mg DAILY TITO Administration Glucose 15 gm 05/27/25 22:05 Glucose Oral Gel 15 Gm Of Glucse In 37.5 Gm Tube PO PRN PRN Hypoglycemia Protocol Dextrose 1,000 mls @ 100 mls/hr 05/27/25 22:05 Dextrose 5% 1,000 Ml IVPB PRN PRN Hypoglycemia Protocol Metronidazole 500 mg in 100 mls @ 100 mls/hr 05/28/25 06:00 05/29/25 06:03 Flagyl 500 Mg/Iso Soln 100 Ml IVPB 100 mls/hr Q8HR TITO Administration Cefepime HCl 1 gm/ Sodium 50 mls @ 100 mls/hr 05/28/25 19:00 05/28/25 18:17 Chloride IVPB 100 mls/hr Q24H TITO Administration Albumin Human 50 mls @ 999 mls/hr 05/29/25 06:50 Albutein IVPB 06/28/25 06:49 Q10M PRN HYPOTENSION Vancomycin HCl 1,000 mg/ 250 mls @ 250 mls/hr 05/29/25 15:00 Sodium Chloride IVPB 05/29/25 15:59 ONCE ONE Insulin Aspart 2 - 5 units 05/28/25 08:00 05/28/25 17:28 Insulin Aspart (*Bkc) 100 Units/Ml SUB-Q 3 units TIDWM TITO Administration Protocol Insulin Aspart 1 - 2 units 05/28/25 21:00 05/28/25 21:13 Insulin Aspart (*Bkc) 100 Units/Ml SUB-Q 1 units HS TITO Administration Protocol Insulin Aspart 8 units 05/28/25 18:20 05/28/25 18:18 Insulin Aspart (*Bkc) 100 Units/Ml SUB-Q 8 units TID TITO Administration Insulin Glargine 21 units 05/29/25 10:00 Insulin Glargine (*Bkc) 100 Units/Ml SUB-Q DAILY@1000 [facility] Lidocaine/Prilocaine 1 each 05/29/25 06:50 Lidocaine/Prilocaine Cream 2.5-2.5% Tube TOPICAL WITH DIALYSIS PRN for dialysis Protocol Lisinopril 20 mg 05/28/25 09:35 05/28/25 10:22 Lisinopril 20 Mg Tablet PO 20 mg DAILY TITO Administration Tramadol HCl 25 mg 05/28/25 12:34 05/29/25 06:02 Tramadol Hcl (*Crx) 25 Mg Tablet PO 25 mg Q4H PRN Administration Pain Rated 4-6 Vancomycin HCl 1 each 05/27/25 18:48 Vancomycin For Hemodialysis IVPB PRN PRN Vancomycin Protocol Radiology Results: ITS Impressions Abdomen/Pelvis CT 05/27/25 17:56 IMPRESSION: Scrotal abscesses detailed above with cellulitis. Incidental findings above. Labs Labs: Laboratory Results - last 24 hr 05/28/25 05/28/25 05/28/25 05:16 05:23 08:11 WBC RBC Hgb Hct MCV MCH MCHC RDW Plt Count MPV Sodium Potassium Chloride Carbon Dioxide Anion Gap BUN Creatinine Estim Creat Clear Calc Estimated GFR Glucose POC Capillary Glucose Hemoglobin A1c 12.1 H Calcium Total Bilirubin AST ALT Alkaline Phosphatase Total Protein Albumin Nasal MRSA (PCR) Not detected Random Vancomycin Hep Bs Antibody Indeterminate 05/28/25 05/28/25 05/28/25 11:33 16:08 20:33 WBC RBC Hgb Hct MCV MCH MCHC RDW Plt Count MPV Sodium Potassium Chloride Carbon Dioxide Anion Gap BUN Creatinine Estim Creat Clear Calc Estimated GFR Glucose POC Capillary Glucose 316 H 259 H 245 H Hemoglobin A1c Calcium Total Bilirubin AST ALT Alkaline Phosphatase Total Protein Albumin Nasal MRSA (PCR) Random Vancomycin Hep Bs Antibody 05/29/25 05/29/25 05:15 08:07 WBC 19.2 H RBC 3.65 L Hgb 9.5 L Hct 30.1 L MCV 82.5 MCH 26.0 MCHC 31.6 L RDW 15.2 H Plt Count 192 MPV 11.6 H Sodium 130 L Potassium 4.5 Chloride 92 L Carbon Dioxide 21 L Anion Gap 17 H BUN 64 H D Creatinine 11.61 H Estim Creat Clear Calc 9 Estimated GFR 5 L Glucose 199 H POC Capillary Glucose 193 H Hemoglobin A1c Calcium 8.3 L Total Bilirubin 0.5 AST 20 ALT 14 Alkaline Phosphatase 84 Total Protein 7.8 Albumin 3.9 Nasal MRSA (PCR) Random Vancomycin 16.7 Hep Bs Antibody
--- NOTE | 2025-05-29 09:19 | PC.NURSE ---
RN holding morning medications until after dialysis in case of hypotension caused by dialysis treatment.
[2025-05-29] MEDS: INSULIN GLARGINE (*BKC) 100 UNITS/ML 21 UNITS SUB-Q (09:22)
--- NOTE | 2025-05-29 11:45 | P.PNNP_ITS ---
Progress Note: A&P Assessment and Plan (1) End stage renal disease: Code(s): N18.6 - End stage renal disease Status: Acute Assessment and Plan: * plan HD tomorrow (due to need for operative intervention given #2) * normal HD schedule is //Wednesday * will eventually transition back to this schedule * follow electrolytes, volume status, and clearance (2) Scrotal abscess: Code(s): N49.2 - Inflammatory disorders of scrotum Status: Acute Assessment and Plan: * as noted by clinical history and imaging: * worsening pain and swelling of his scrotal right side * 10 days prior to admission he had an area of induration on his scrotal sac with a bit of drainage * given clindamycin by PCP but symptoms continued to worsen * CT of abdomen/pelvis CT: scrotum with rim-enhancing abscesses the largest on the right side measuring 2 x 2.2 cm with induration of the remaining soft tissues but no gross air within the soft tissues themselves * Urology following * noted plans for incision and drainage later today * follow culture data * on antibiotics (3) Anemia: Qualifiers: Anemia type: unspecified type Qualified Code(s): D64.9 - Anemia, unspecified Code(s): D64.9 - Anemia, unspecified Status: Chronic Assessment and Plan: * due to ESRD * likely worsened by acute illness/infection * Epogen with HD * follow trend of H/H (4) Hypertension: Qualifiers: Hypertension type: unspecified Qualified Code(s): I10 - Essential (primary) hypertension Code(s): I10 - Essential (primary) hypertension Status: Chronic Assessment and Plan: * reasonable control * follow trend of hemodynamics (5) Type 2 diabetes mellitus: Qualifiers: Diabetes mellitus complication detail: with nephropathy Diabetes mellitus complication status: with kidney complications Diabetes mellitus halfway insulin use: without watermaster use Qualified Code(s): E11.21 - Type 2 diabetes mellitus with diabetic nephropathy Code(s): E11.9 - Type 2 diabetes mellitus without complications Status: Chronic Assessment and Plan: * follow accu-cheks * glycemic control per hospitalist Will continue to follow. L Subjective Date/time seen: 05/29/25 11:45 Interval history: Follow-up for end stage renal disease on hemodialysis. No apparent distress noted at the time of my visit; noted plans for I&D of scrotal abscess in OR later this afternoon; due for dialysis today but will be rescheduled for tomorrow due to need for operative intervention; as always, the patient remains in good spirits. Exam 2 Narrative: General: WD/WN male in NAD Heart: normal S1 and S2; no rub Lungs: clear to auscultation Abdomen: soft, nontender, nondistended, positive bowel sounds Extremities: no cyanosis or clubbing; no edema Skin: warm and dry Objective Data Vital Signs Vital Signs: Vital Signs Temp Pulse Resp BP Pulse Ox O2 Del Method O2 Flow Rate 05/29/25 09:20 Room Air 05/29/25 04:28 99.2 F 91 18 103/61 95 05/29/25 02:14 98.4 F 05/28/25 20:28 100.6 F H 94 20 125/66 96 05/28/25 20:00 Room Air Intake/Output Intake/Output: Intake & Output 05/26/25 05/27/25 05/28/25 05/29/25 23:59 23:59 23:59 23:59 Intake Total 650 1220 400 Balance 650 1220 400 Meds/Results Medications: Active Medications Generic Name Dose Route Start Last Admin Trade Name Freq PRN Reason Stop Dose Admin Atorvastatin Calcium 20 mg 05/28/25 09:35 05/29/25 12:34 Atorvastatin 20 Mg Tablet PO Not Given DAILY TITO Dextrose 12.5 gm 05/27/25 22:05 Dextrose 50% 25 Gm/50 Ml Syringe IV PUSH PRN PRN Hypoglycemia Protocol Epoetin Jhonny-epbx 10,000 units 05/29/25 18:50 Epoetin Jhonny-Epbx 10,000 Units/Ml Vial IV PUSH 05/29/25 18:51 ONCE ONE Furosemide 80 mg 05/28/25 09:35 05/29/25 12:34 Furosemide 80 Mg Tablet PO Not Given DAILY TITO Glucose 15 gm 05/27/25 22:05 Glucose Oral Gel 15 Gm Of Glucse In 37.5 Gm Tube PO PRN PRN Hypoglycemia Protocol Dextrose 1,000 mls @ 100 mls/hr 05/27/25 22:05 Dextrose 5% 1,000 Ml IVPB PRN PRN Hypoglycemia Protocol Metronidazole 500 mg in 100 mls @ 100 mls/hr 05/28/25 06:00 05/29/25 14:42 Flagyl 500 Mg/Iso Soln 100 Ml IVPB Infused Q8HR TITO Infusion Cefepime HCl 1 gm/ Sodium 50 mls @ 100 mls/hr 05/28/25 19:00 05/29/25 17:48 Chloride IVPB 100 mls/hr Q24H TITO Administration Albumin Human 50 mls @ 999 mls/hr 05/29/25 06:50 Albutein IVPB 06/28/25 06:49 Q10M PRN HYPOTENSION Insulin Aspart 2 - 5 units 05/28/25 08:00 05/29/25 17:15 Insulin Aspart (*Bkc) 100 Units/Ml SUB-Q Not Given TIDWM [facility] Protocol Insulin Aspart 1 - 2 units 05/28/25 21:00 05/28/25 21:13 Insulin Aspart (*Bkc) 100 Units/Ml SUB-Q 1 units HS TITO Administration Protocol Insulin Aspart 8 units 05/28/25 18:20 05/29/25 17:49 Insulin Aspart (*Bkc) 100 Units/Ml SUB-Q 8 units TID TITO Administration Insulin Glargine 21 units 05/29/25 10:00 05/29/25 09:22 Insulin Glargine (*Bkc) 100 Units/Ml SUB-Q 21 units DAILY@1000 TITO Administration Lidocaine/Prilocaine 1 each 05/29/25 06:50 Lidocaine/Prilocaine Cream 2.5-2.5% Tube TOPICAL WITH DIALYSIS PRN for dialysis Protocol Lisinopril 20 mg 05/28/25 09:35 05/29/25 12:34 Lisinopril 20 Mg Tablet PO Not Given DAILY TITO Tramadol HCl 25 mg 05/28/25 12:34 05/29/25 06:02 Tramadol Hcl (*Crx) 25 Mg Tablet PO 25 mg Q4H PRN Administration Pain Rated 4-6 Vancomycin HCl 1 each 05/27/25 18:48 Vancomycin For Hemodialysis IVPB PRN PRN Vancomycin Protocol Radiology Results: ITS Impressions Abdomen/Pelvis CT 05/27/25 17:56 IMPRESSION: Scrotal abscesses detailed above with cellulitis. Incidental findings above. Labs Labs: Laboratory Tests 05/29/25 05:15 05/29/25 05:15 Calcium 8.3 L Total Bilirubin 0.5 AST 20 ALT 14 Alkaline Phosphatase 84 Total Protein 7.8 Albumin 3.9 Random Vancomycin 16.7
--- NOTE | 2025-05-29 13:35 | WPDHPUPDATE1 ---
History and Physical Update Update Date/Time: 05/29/25 13:35 History and Physical has been reviewed, including an updated exam of the patient. There are NO changes in the patient's condition. Risks, benefits, and alternatives have been discussed and questions answered. Patient agrees to proceed with procedure.
--- NOTE | 2025-05-29 14:34 | WPDANESEPPF ---
Anes - Initial Pre Proc Eval Procedure: Operation Date: 05/29/25 15:00 Proposed Procedures p Incision And Drainage Scrotal Abscess - Richardson Nettles MD Date/Time: 05/29/25 14:34 Surgeon: Arpan Ashley MD Pre Op Diagnosis: Scrotal abscess Patient Data Age: 55 Gender: M Height: 1.88 m Weight: 111.6 kg Last Vital Signs Temp 36.8 C 05/29/25 14:06 Pulse 99 05/29/25 14:06 Resp 18 05/29/25 04:28 BP 115/67 05/29/25 14:06 Pulse Ox 95 05/29/25 14:06 O2 Del Method Room Air 05/29/25 14:06 Allergies Allergy/AdvReac Type Severity Reaction Status Date / Time No Known Allergies Allergy Unknown Verified 05/27/25 23:37 Home Medications ?Medication ?Instructions ?Recorded ?Confirmed ?Type atorvastatin 20 mg tablet 20 mg PO DAILY 05/27/25 05/27/25 History calcium carbonate (Oyster Shell 500 mg PO DAILY 05/27/25 05/27/25 History Calcium 500) ergocalciferol (vitamin D2) 1,250 1,250 mcg PO DAILY 05/27/25 05/27/25 History mcg (50,000 unit) capsule furosemide 80 mg tablet 80 mg PO DAILY 05/27/25 05/27/25 History insulin aspart U-100 100 unit/mL 10 unit subcut TID 05/27/25 05/27/25 History (3 mL) subcutaneous pen insulin glargine-yfgn 100 unit/mL 25 unit subcut DAILY@1000 05/27/25 05/27/25 History (3 mL) subcutaneous pen lisinopril 20 mg tablet 20 mg PO DAILY 05/27/25 05/27/25 History Laboratory Tests 05/28/25 05/28/25 05/28/25 05:16 16:08 20:33 WBC RBC Hgb Hct MCV MCH MCHC RDW Plt Count MPV Sodium Potassium Chloride Carbon Dioxide Anion Gap BUN Creatinine Estim Creat Clear Calc Estimated GFR Glucose POC Capillary Glucose 259 H mg/dl 245 H mg/dl (65-105) (65-105) Hemoglobin A1c 12.1 H % (<5.7) Calcium Total Bilirubin AST ALT Alkaline Phosphatase Total Protein Albumin Random Vancomycin 05/29/25 05/29/2525 05:15 08:07 11:56 WBC 19.2 H K/mm3 (4.5-10.0) RBC 3.65 L M/mm3 (4.6-6.20) Hgb 9.5 L g/dL (14.0-18.0) Hct 30.1 L % (42.0-52.0) MCV 82.5 fl (80-100) MCH 26.0 pg (26-34) MCHC 31.6 L g/dl (32-36) RDW 15.2 H % (11.5-14.5) Plt Count 192 k/mm3 (150-375) MPV 11.6 H fl (7.4-10.4) Sodium 130 L mmol/L (137-145) Potassium 4.5 mmol/L (3.4-5.0) Chloride 92 L mmol/L (98-107) Carbon Dioxide 21 L mmol/L (22-30) Anion Gap 17 H mmol/L (4-12) BUN 64 H D mg/dL (9-20) Creatinine 11.61 H mg/dL (0.7-1.3) Estim Creat Clear Calc 9 ml/min Estimated GFR 5 L (59 - ) Glucose 199 H mg/dL (65-110) POC Capillary Glucose 193 H mg/dl 198 H mg/dl (65-105) (65-105) Hemoglobin A1c Calcium 8.3 L mg/dL (8.4-10.2) Total Bilirubin 0.5 mg/dL (0.2-1.3) AST 20 U/L (17-59) ALT 14 U/L (6-50) Alkaline Phosphatase 84 U/L (38-126) Total Protein 7.8 g/dL (6.3-8.2) Albumin 3.9 g/dL (3.5-5.1) Random Vancomycin 16.7 ug/mL (10-20) 05/29/25 13:59 WBC RBC Hgb Hct MCV MCH MCHC RDW Plt Count MPV Sodium Potassium Chloride Carbon Dioxide Anion Gap BUN Creatinine Estim Creat Clear Calc Estimated GFR Glucose POC Capillary Glucose 173 H mg/dl (65-105) Hemoglobin A1c Calcium Total Bilirubin AST ALT Alkaline Phosphatase Total Protein Albumin Random Vancomycin Patient hx anesthesia problems: none Family hx anesthesia problems: none Results Review: All pre-operative results and documents have been reviewed as part of the pre-operative evaluation. [facility] Past Medical History Medical History End stage renal disease Obesity (BMI 30.0-34.9) Diabetic retinopathy Type 2 diabetes mellitus Hyperlipidemia Hypertension Surgical History Surgical History Proliferative diabetic retinopathy with history of surgery Family History Family History Mother Thyroid disease Sibling Thyroid disease Father Diabetes mellitus End stage renal disease Hypertension Social History Social History Social History: Patient lives at home with his 24 years. 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 They have (I think he has had 2 children) who are healthy. He is a lifelong nonsmoker. He does not have any significant out alcohol or illicit substance use history. Code status: Full code Surrogate decision maker: Smoking status: Never smoker Alcohol intake: never Substance use: never Do You Feel Safe in your Home?: Yes Lack of Transportation: No Lack of Food: Never True Current Housing: I Have Housing Concerned About Future Housing: No Difficulty Paying Gas/Electric Bills: No Difficulty Paying for Meds: No Currently Unemployed: No Education: High School Diploma/GED Difficulty w/ Childcare or Family Care: No Living arrangements: with family Occupation/Education: occupation Gender identity (if verbalized by the patient): Male Sexual Orientation (if Verbalized by the Patient): Straight or Heterosexual Spiritual care concerns: No Anes - Eval Final PreProcedure Day of Procedure 05/29/25 14:34 Patient weight: obese Heart: regular rate and rhythm Lungs: clear to auscultation Airway: Mallampati scale class II Neurological: alert and oriented Last oral intake: >/= 8 hours ASA classification: IV Emergent: no Anesthetic plan: proceed Anesthesia type and monitoring: general LMA and standard monitoring Results Review: All pre-operative results and documents have been reviewed as part of the pre-operative evaluation. Informed Consent: The patient's anesthetic plan and its attendant risks and benefits were discussed with the patient/family/POA. Questions were solicited and answers provided to the satisfaction of the patient/family/POA.
[2025-05-29] MEDS: SODIUM CHLORIDE 0.9% IV 500 ML 30 ML IV CONT (14:41)
[2025-05-29] MEDS: BUPivacaine HCL 0.25% PF 10 ML VIAL INFILTRATE (15:28)
--- NOTE | 2025-05-29 15:47 | W.PM.PROC2 ---
Procedure Note - Detailed Date of Procedure 05/29/25 Pre-op Diagnosis Scrotal abscess Post-op Diagnosis Same Procedure Performed 1. Incision and drainage of scrotal abscess Surgeon Richardson Nettles MD Anesthesia General Description of Procedure After informed consent had been obtained, the patient was brought back to the operating theater and placed in supine position on the operating table whereupon general anesthesia was induced. The patient was then placed into the dorsal lithotomy position and his genitalia and perineum were prepped and draped in the standard sterile fashion. Preoperative antibiotics were confirmed to have been administered on the floor. All pressure points were padded. Sequential compressive devices were on and noted to be functioning. A formal time-out was performed to confirm the correct patient, site, and procedure and all were in agreement to proceed. To begin with, I palpated over the patient's scrotum and perineum and noted a fluctuant area overlying the right inferior scrotum approaching the perineum. I attempted to aspirate the abscess fluid using a 18 gauge needle percutaneously but was unable to aspirate any abscess fluid. Next, I made an approximately 5 cm vertical incision overlying the area of maximal fluctuance. Initially there was no abscess fluid draining but after breaking up loculations using a Lesly clamp there was purulent drainage from this area. A wound swab was used to obtain a wound culture. I also aspirated the fluid using the 18 gauge needle and both of these were sent as a specimen for aerobic, anaerobic, and fungal cultures. I then continued to break up the abscess loculations digitally as well as with the assistance of the Lesly clamp. Afterwards, I copiously irrigated the abscess cavity with normal saline. I then turned my attention to hemostasis. I used the cautery setting to obtain hemostasis along the cut skin edges. The base of the abscess did not have any significant bleeding. There was no necrotic tissue. Next, I performed a digital rectal examination to ensure no communication with the rectum and none was appreciated. I then replaced my glove with new sterile glove. The abscess cavity was again copiously irrigated. Hemostasis was noted to be adequate. I then packed the wound with half-inch iodoform dressing. Over top of this fluffs were placed followed by an ABD pad. Lastly, mesh panties were placed to secure the dressing in place. This essentially concluded the case. The patient tolerated the procedure well and there were no immediate complications noted. He was awoken from anesthesia and taken to the recovery in a stable condition. At the conclusion of the case all sponge, instrument, and sharp counts were correct x2. Disposition: The patient will be monitored in the PACU and then be transferred back to his hospital room after current PACU protocol. The wound team will be consulted for ongoing wound care. Estimated Blood Loss 5
[2025-05-29] MEDS: ONDANSETRON INJ 4 MG/2 ML VIAL IV PUSH (17:01)
[2025-05-29] MEDS: CEFEPIME 1 GM in SODIUM CHLORIDE 0.9% IV 50 ML 100 ML IVPB (17:48)
[2025-05-29] MEDS: INSULIN ASPART (*BKC) 100 UNITS/ML 8 UNITS SUB-Q (17:49)
[2025-05-30] VITALS (26 sets, daily range): BP systolic 88–124; BP diastolic 41–62; PULSE 84–101; RESP 16–20; TEMP 36.1–37.9; O2SAT 90–95
[2025-05-30] MEDS: metroNIDAZOLE 500 MG/ISO 100ML 500 MG/100 ML BAG 100 MG IVPB (05:22)
[2025-05-30 06:17] LABS: Hematocrit 27.7 % (42.0-52.0); Hemoglobin 8.7 g/dL (14.0-18.0); Mean Corpuscular HGB Conc 31.4 g/dl (32-36); Mean Corpuscular Hemoglobin 26.1 pg (26-34); Mean Corpuscular Volume 83.2 fl (80-100); Platelet Count Result 182 k/mm3 (150-375); Red Blood Count 3.33 M/mm3 (4.6-6.20); White Blood Count 19.2 K/mm3 (4.5-10.0)
[2025-05-30 06:56] LABS: Alanine Aminotransferase 13 U/L (6-50); Albumin Level 3.5 g/dL (3.5-5.1); Alkaline Phosphatase 86 U/L (38-126); Anion Gap 19 mmol/L (4-12); Aspartate Amino Transferase 21 U/L (17-59); Bilirubin,Total 0.4 mg/dL (0.2-1.3); Blood Urea Nitrogen 77 mg/dL (9-20); Calcium 7.9 mg/dL (8.4-10.2); Carbon Dioxide 17 mmol/L (22-30); Chloride 93 mmol/L (98-107); Estimated CRCL calculation 8 ml/min; Estimated Glomerular Filt Rate 4; Glucose 177 mg/dL (65-110); Potassium 4.3 mmol/L (3.4-5.0); Sodium 129 mmol/L (137-145); Total Protein 7.3 g/dL (6.3-8.2)
[2025-05-30] MEDS: LIDOCAINE/PRILOCAINE CREAM 2.5-2.5% TUBE 1 EACH TOPICAL (08:18)
[2025-05-30] MEDS: INSULIN GLARGINE (*BKC) 100 UNITS/ML 21 UNITS SUB-Q (11:09)
[2025-05-30] MEDS: EPOETIN ALFA-EPBX 10,000 UNITS/ML VIAL 10000 UNITS IV PUSH (11:31)
--- NOTE | 2025-05-30 12:18 | P.PNIM_ITS ---
Progress Note: A&P Assessment and Plan (1) Sepsis: Code(s): A41.9 - Sepsis, unspecified organism Status: Acute Assessment and Plan: Meets SIRS criteria: febrile with leukocytosis Lactic acid WNL Suspected source: scrotal abscess Urine culture pending Blood culture pending Abdomen/pelvis CT: scrotum with rim-enhancing abscesses the largest on the right side measuring 2 x 2.2 cm with induration of the remaining soft tissues but no gross air within the soft tissues themselves. Antibiotics: vanc, cefe, flagyl started on 05/27 See plan below (2) Scrotal abscess: Code(s): N49.2 - Inflammatory disorders of scrotum Status: Acute Assessment and Plan: Worsening pain and swelling of his scrotal right side, 10 days prior to admission he had an area of induration on his scrotal sac with a bit of drainage, given clindamycin by PCP. Despite abx, symptoms continued to worsen. Not meeting sepsis criteria Abdomen/pelvis CT: scrotum with rim-enhancing abscesses the largest on the right side measuring 2 x 2.2 cm with induration of the remaining soft tissues but no gross air within the soft tissues themselves. Antibiotics: vanc, cefe, flagyl started on 05/27 Urine culture pending Blood culture pending Urology consulted Plan for I&D of scrotal abscess today Worsening leukocytosis and now febrile with tmax 100.6. Plan for I&D today with urology to obtain source control. will deescalate antibiotics tomorrow once I/D completed if able (3) End stage renal disease: Code(s): N18.6 - End stage renal disease Status: Acute Assessment and Plan: Chronic HD on wednesday, , wednesday Followed by Dr. Arriola Nephrology consulted for dialysis 05/29: Patient was scheduled for dialysis today at 1300 however this time was conflicting with the I&D needed for the worsening scrotal abscess. RN spoke with urology and if I&D not able to be performed today would likely need to be rescheduled for . Given that patient is growing septic likely related to the ongoing abscess discussed his need for dialysis today with nephrology Dr. Martin who is in agreement that the abscess can take precedent given that his fluid status and electrolytes are normal. Dr. Martin plans to have patient undergo dialysis first thing tomorrow morning. 05/30 no dialysis today as having procedure, dialysis tomorrow (4) Type 2 diabetes mellitus: Qualifiers: Diabetes mellitus jail insulin use: without jail use Diabetes mellitus complication status: with kidney complications Diabetes mellitus complication detail: with nephropathy Qualified Code(s): E11.21 - Type 2 diabetes mellitus with diabetic nephropathy Code(s): E11.9 - Type 2 diabetes mellitus without complications Status: Chronic Assessment and Plan: - hypoglycemia protocol - POC blood glucose ACHS - home medication - lantus 25 units daily, aspart 10 units TID - correct regimen ordered - Lantus 20 units and aspart 8 units TIDWM (20% of baseline regimen), SSI - A1c 12.1 (5) Hypertension: Qualifiers: Hypertension type: unspecified Qualified Code(s): I10 - Essential (primary) hypertension Code(s): I10 - Essential (primary) hypertension Status: Chronic Assessment and Plan: Chronic, continue home medications - lisinopril 20 mg daily and lasix 80 mg daily - blood pressure reviewed and remain stable, continue to monitor Time Spent With Patient Time with patient: 25 - 35 minutes Subjective Date/time seen: 05/30/25 12:18 Interval history: 55 year old male with past medical history of ESRD on HD T,TR, Sat (follows Dr. Arriola), HTN, and DM presents to the hospital for worsening pain and swelling of his scrotal right side. I&D of scrotal abscess in OR today with DR Nettles. Dialysis tomorrow instead of today. Review of Systems Review of Systems: All systems reviewed & are unremarkable except as noted in HPI and below (Subjective) Exam Narrative: General: male in no acute respiratory distress who is nontoxic appearing, lying semi recumbent in bed. HEENT: Normocephalic. Atraumatic. Extraocular movement intact. Sclera clear and anicteric. No facial asymmetry. Chest: Lungs are clear to auscultation bilaterally. No wheezes or crackles. CV: Heart was regular rate and rhythm. Abd: Abdomen was soft. Nontender. Nondistended. Positive bowel sounds. : scrotal swelling R>L without warmth, drainage or wounds noted. Ext: No clubbing, cyanosis, or edema. DP pulses bilaterally. Neuro: Patient is alert. Speech is clear. Const: General: comfortable and no acute distress Other: A&O x3 HENMT: Mouth: Yes moist mucous membranes Neck: Neck: supple Resp: Effort & Inspection: normal respiratory effort Auscultation: clear to auscultation bilaterally Cardio: Rate: regular rate Rhythm: regular rhythm Heart sounds: no gallops, no murmurs and no rubs GI: Inspection: non-distended : Other: Scrotal sac edematous right greater than left, no drainage, no open lesion, warm to touch, tender to palpation. Left upper arm AV fistula Skin: General skin exam: normal color Extrem: General: no edema Objective Data Vital Signs Vital Signs: Vital Signs - 24 hr 05/29/25 14:06 05/29/25 15:40 05/29/25 15:55 Temperature 98.3 F 97.4 F L Pulse Rate 99 91 91 Respiratory Rate 14 16 Blood Pressure 115/67 95/58 L 121/68 Pulse Oximetry 95 100 100 Oxygen Delivery Room Air Simple Face Mask Room Air Oxygen Flow Rate 6 05/29/25 16:10 05/29/25 16:25 05/29/25 16:40 Temperature Pulse Rate 92 94 96 Respiratory Rate 16 16 18 Blood Pressure 125/68 116/63 123/67 Pulse Oximetry 94 92 92 Oxygen Delivery Room Air Room Air Room Air Oxygen Flow Rate 05/29/25 17:05 05/29/25 17:20 05/29/25 17:50 Temperature 97.7 F 97.5 F L 98.1 F Pulse Rate 98 95 98 Respiratory Rate 18 18 20 Blood Pressure 116/50 L 100/50 L 116/51 L Pulse Oximetry 93 92 91 Oxygen Delivery Oxygen Flow Rate 05/29/25 18:49 05/29/25 19:59 05/30/25 03:40 Temperature 98.2 F 98.7 F 97.7 F Pulse Rate 98 100 88 Respiratory Rate 18 20 20 Blood Pressure 111/50 L 108/58 L 105/56 L Pulse Oximetry 94 92 94 Oxygen Delivery Oxygen Flow Rate 05/30/25 07:57 05/30/25 09:01 05/30/25 09:11 Temperature 97.4 F L 98.8 F Pulse Rate 84 87 87 Respiratory Rate 16 18 Blood Pressure 118/56 L 103/52 L 117/55 L Pulse Oximetry 95 95 Oxygen Delivery Oxygen Flow Rate 05/30/25 09:15 05/30/25 09:30 05/30/25 09:45 Temperature Pulse Rate 86 87 87 Respiratory Rate Blood Pressure 124/46 L 105/52 L 114/54 L Pulse Oximetry Oxygen Delivery Oxygen Flow Rate 05/30/25 10:00 05/30/25 10:15 05/30/25 10:30 Temperature Pulse Rate 87 88 87 Respiratory Rate Blood Pressure 88/41 L 100/44 L 96/48 L Pulse Oximetry Oxygen Delivery Oxygen Flow Rate 05/30/25 10:45 05/30/25 11:00 05/30/25 11:15 Temperature Pulse Rate 88 89 90 Respiratory Rate Blood Pressure 119/56 L 109/44 L 95/51 L Pulse Oximetry Oxygen Delivery Oxygen Flow Rate 05/30/25 11:30 05/30/25 11:45 05/30/25 11:47 Temperature Pulse Rate 88 89 89 Respiratory Rate 16 Blood Pressure 112/58 L 103/53 L 95/51 L Pulse Oximetry 92 Oxygen Delivery Oxygen Flow Rate 05/30/25 12:00 Temperature Pulse Rate 90 Respiratory Rate Blood Pressure 114/62 Pulse Oximetry Oxygen Delivery Oxygen Flow Rate Intake/Output Intake/Output: Intake & Output 05/27/25 05/28/25 05/29/25 05/30/25 23:59 23:59 23:59 23:59 Intake Total 650 1220 740 730 Balance 650 1220 740 730 Meds/Results Medications: Active Medications Generic Name Dose Route Start Last Admin Trade Name Freq PRN Reason Stop Dose Admin Atorvastatin Calcium 20 mg 05/28/25 09:35 05/29/25 12:34 Atorvastatin 20 Mg Tablet PO Not Given DAILY TITO Dextrose 12.5 gm 05/27/25 22:05 Dextrose 50% 25 Gm/50 Ml Syringe IV PUSH PRN PRN Hypoglycemia Protocol Epoetin Jhonny-epbx 10,000 units 05/30/25 18:18 05/30/25 11:31 Epoetin Jhonny-Epbx 10,000 Units/Ml Vial IV PUSH 05/30/25 18:19 10,000 units ONCE ONE Administration Furosemide 80 mg 05/28/25 09:35 05/30/25 09:03 Furosemide 80 Mg Tablet PO Not Given DAILY TITO Glucose 15 gm 05/27/25 22:05 Glucose Oral Gel 15 Gm Of Glucse In 37.5 Gm Tube PO PRN PRN Hypoglycemia Protocol Dextrose 1,000 mls @ 100 mls/hr 05/27/25 22:05 Dextrose 5% 1,000 Ml IVPB PRN PRN Hypoglycemia Protocol Metronidazole 500 mg in 100 mls @ 100 mls/hr 05/28/25 06:00 05/30/25 05:22 Flagyl 500 Mg/Iso Soln 100 Ml IVPB 100 mls/hr Q8HR TITO Administration Cefepime HCl 1 gm/ Sodium 50 mls @ 100 mls/hr 05/28/25 19:00 05/29/25 17:48 Chloride IVPB 100 mls/hr Q24H TITO Administration Albumin Human 50 mls @ 999 mls/hr 05/29/25 06:50 Albutein IVPB 06/28/25 06:49 Q10M PRN HYPOTENSION Vancomycin HCl 1,000 mg/ 250 mls @ 250 mls/hr 05/30/25 13:00 Sodium Chloride IVPB 05/30/25 13:59 ONCE ONE Insulin Aspart 2 - 5 units 05/28/25 08:00 05/30/25 09:02 Insulin Aspart (*Bkc) 100 Units/Ml SUB-Q Not Given TIDWM [facility] Protocol Insulin Aspart 1 - 2 units 05/28/25 21:00 05/29/25 20:58 Insulin Aspart (*Bkc) 100 Units/Ml SUB-Q Not Given HS [facility] Protocol Insulin Aspart 8 units 05/28/25 18:20 05/30/25 09:03 Insulin Aspart (*Bkc) 100 Units/Ml SUB-Q Not Given TID [facility] Insulin Glargine 21 units 05/29/25 10:00 05/30/25 11:09 Insulin Glargine (*Bkc) 100 Units/Ml SUB-Q 21 units DAILY@1000 TITO Administration Lidocaine/Prilocaine 1 each 05/29/25 06:50 05/30/25 08:18 Lidocaine/Prilocaine Cream 2.5-2.5% Tube TOPICAL 1 each WITH DIALYSIS PRN Administration for dialysis Protocol Lisinopril 20 mg 05/28/25 09:35 05/30/25 09:03 Lisinopril 20 Mg Tablet PO Not Given DAILY [facility] Tramadol HCl 25 mg 10/20/25 12:34 05/29/25 22:45 Tramadol Hcl (*Crx) 25 Mg Tablet PO 25 mg Q4H PRN Administration Pain Rated 4-6 Vancomycin HCl 1 each 05/27/25 18:48 Vancomycin For Hemodialysis IVPB PRN PRN Vancomycin Protocol Radiology Results: ITS Impressions Abdomen/Pelvis CT 05/27/25 17:56 IMPRESSION: Scrotal abscesses detailed above with cellulitis. Incidental findings above. Labs Labs: Laboratory Results - last 24 hr 05/29/25 05/29/25 05/29/25 13:59 15:50 17:07 WBC RBC Hgb Hct MCV MCH MCHC RDW Plt Count MPV Sodium Potassium Chloride Carbon Dioxide Anion Gap BUN Creatinine Estim Creat Clear Calc Estimated GFR Glucose POC Capillary Glucose 173 H 169 H 173 H Calcium Total Bilirubin AST ALT Alkaline Phosphatase Total Protein Albumin Random Vancomycin 05/29/25 05/30/25 05/30/25 20:01 05:45 07:55 WBC 19.2 H RBC 3.33 L Hgb 8.7 L Hct 27.7 L MCV 83.2 MCH 26.1 MCHC 31.4 L RDW 15.5 H Plt Count 182 MPV 11.9 H Sodium 129 L Potassium 4.3 Chloride 93 L Carbon Dioxide 17 L Anion Gap 19 H BUN 77 H D Creatinine 13.44 H Estim Creat Clear Calc 8 Estimated GFR 4 L Glucose 177 H POC Capillary Glucose 196 H 167 H Calcium 7.9 L Total Bilirubin 0.4 AST 21 ALT 13 Alkaline Phosphatase 86 Total Protein 7.3 Albumin 3.5 Random Vancomycin 05/30/25 05/30/25 08:00 11:25 WBC RBC Hgb Hct MCV MCH MCHC RDW Plt Count MPV Sodium Potassium Chloride Carbon Dioxide Anion Gap BUN Creatinine Estim Creat Clear Calc Estimated GFR Glucose POC Capillary Glucose 140 H Calcium Total Bilirubin AST ALT Alkaline Phosphatase Total Protein Albumin Random Vancomycin 15.9 Quality VTE Prophylaxis VTE prophylaxis: mechanical ordered
--- NOTE | 2025-05-30 12:35 | P.PNNP_ITS ---
Progress Note: A&P Assessment and Plan (1) End stage renal disease: Code(s): N18.6 - End stage renal disease Status: Acute Assessment and Plan: * HD today * normal HD schedule is //Wednesday * transition back to this schedule tomorrow (unless there are too many more urgent treatments needed) * follow electrolytes, volume status, and clearance (2) Scrotal abscess: Code(s): N49.2 - Inflammatory disorders of scrotum Status: Acute Assessment and Plan: * as noted by clinical history and imaging: * worsening pain and swelling of his scrotal right side * 10 days prior to admission he had an area of induration on his scrotal sac with a bit of drainage * given clindamycin by PCP but symptoms continued to worsen * CT of abdomen/pelvis CT: scrotum with rim-enhancing abscesses the largest on the right side measuring 2 x 2.2 cm with induration of the remaining soft tissues but no gross air within the soft tissues themselves * Urology following * s/p incision and drainage on 05/29 * local wound care * follow culture data * on antibiotics (3) Anemia: Qualifiers: Anemia type: unspecified type Qualified Code(s): D64.9 - Anemia, unspecified Code(s): D64.9 - Anemia, unspecified Status: Chronic Assessment and Plan: * due to ESRD * likely worsened by acute illness/infection * Epogen with HD * follow trend of H/H (4) Hypertension: Qualifiers: Hypertension type: unspecified Qualified Code(s): I10 - Essential (primary) hypertension Code(s): I10 - Essential (primary) hypertension Status: Chronic Assessment and Plan: * reasonable control * follow trend of hemodynamics (5) Type 2 diabetes mellitus: Qualifiers: Diabetes mellitus complication detail: with nephropathy Diabetes mellitus complication status: with kidney complications Diabetes mellitus termite exterminator insulin use: without termite exterminator use Qualified Code(s): E11.21 - Type 2 diabetes mellitus with diabetic nephropathy Code(s): E11.9 - Type 2 diabetes mellitus without complications Status: Chronic Assessment and Plan: * follow accu-cheks * glycemic control per hospitalist Will continue to follow. L Subjective Date/time seen: 05/30/25 12:35 Interval history: Follow-up for end stage renal disease on hemodialysis. Tolerating dialysis treatment at the time of my visit (seen on HD at 12:25pm); s/p incision & drainage of scrotal abscess in OR yesterday afternoon and tolerated this intervention reasonably well; no apparent distress noted when seen. Exam 2 Narrative: General: WD/WN male in NAD Heart: normal S1 and S2; no rub Lungs: clear to auscultation Abdomen: soft, nontender, nondistended, positive bowel sounds Extremities: no cyanosis or clubbing; no edema Skin: warm and intact Objective Data Vital Signs Vital Signs: Vital Signs Temp Pulse Resp BP Pulse Ox O2 Del Method 05/30/25 12:30 92 113/58 L 05/30/25 12:15 92 124/61 05/30/25 12:00 90 114/62 05/30/25 11:47 89 16 95/51 L 92 05/30/25 11:45 89 103/53 L 05/30/25 11:30 88 112/58 L 05/30/25 11:15 90 95/51 L 05/30/25 11:00 89 109/44 L 05/30/25 10:45 88 119/56 L 05/30/25 10:30 87 96/48 L 05/30/25 10:15 88 100/44 L 05/30/25 10:00 87 88/41 L 05/30/25 09:45 87 114/54 L 05/30/25 09:30 87 105/52 L 05/30/25 09:15 86 124/46 L 05/30/25 09:11 87 117/55 L 05/30/25 09:01 98.8 F 87 18 103/52 L 95 05/30/25 07:57 97.4 F L 84 16 118/56 L 95 05/30/25 03:40 97.7 F 88 20 105/56 L 94 05/29/25 19:59 98.7 F 100 20 108/58 L 92 05/29/25 18:49 98.2 F 98 18 111/50 L 94 05/29/25 17:50 98.1 F 98 20 116/51 L 91 05/29/25 17:20 97.5 F L 95 18 100/50 L 92 05/29/25 17:05 97.7 F 98 18 116/50 L 93 Intake/Output Intake/Output: Intake & Output 10/19/25 05/28/25 05/29/25 05/30/25 23:59 23:59 23:59 23:59 Intake Total 650 1220 740 970 Output Total 3000 Balance 650 1220 740 -2030 Meds/Results Medications: Active Medications Generic Name Dose Route Start Last Admin Trade Name Freq PRN Reason Stop Dose Admin Amoxicillin/Clavulanate Potassium 1 tablet 05/30/25 21:00 Amoxicillin/Clavulanate K 500-125 Mg Tab PO Q12HR TITO Atorvastatin Calcium 20 mg 05/28/25 09:35 05/30/25 13:16 Atorvastatin 20 Mg Tablet PO 20 mg DAILY TITO Administration Dextrose 12.5 gm 05/27/25 22:05 Dextrose 50% 25 Gm/50 Ml Syringe IV PUSH PRN PRN Hypoglycemia Protocol Epoetin Jhonny-epbx 10,000 units 05/30/25 18:18 05/30/25 11:31 Epoetin Jhonny-Epbx 10,000 Units/Ml Vial IV PUSH 05/30/25 18:19 10,000 units ONCE ONE Administration Furosemide 80 mg 05/28/25 09:35 05/30/25 09:03 Furosemide 80 Mg Tablet PO Not Given DAILY TITO Glucose 15 gm 05/27/25 22:05 Glucose Oral Gel 15 Gm Of Glucse In 37.5 Gm Tube PO PRN PRN Hypoglycemia Protocol Dextrose 1,000 mls @ 100 mls/hr 05/27/25 22:05 Dextrose 5% 1,000 Ml IVPB PRN PRN Hypoglycemia Protocol Albumin Human 50 mls @ 999 mls/hr 05/29/25 06:50 Albutein IVPB 06/28/25 06:49 Q10M PRN HYPOTENSION Insulin Aspart 2 - 5 units 05/28/25 08:00 05/30/25 13:35 Insulin Aspart (*Bkc) 100 Units/Ml SUB-Q Not Given TIDWM TITO Protocol Insulin Aspart 1 - 2 units 05/28/25 21:00 05/29/25 20:58 Insulin Aspart (*Bkc) 100 Units/Ml SUB-Q Not Given HS TITO Protocol Insulin Aspart 8 units 05/28/25 18:20 05/30/25 13:47 Insulin Aspart (*Bkc) 100 Units/Ml SUB-Q 8 units TID TITO Administration Insulin Glargine 21 units 05/29/25 10:00 05/30/25 11:09 Insulin Glargine (*Bkc) 100 Units/Ml SUB-Q 21 units DAILY@1000 TITO Administration Lidocaine/Prilocaine 1 each 05/29/25 06:50 05/30/25 08:18 Lidocaine/Prilocaine Cream 2.5-2.5% Tube TOPICAL 1 each WITH DIALYSIS PRN Administration for dialysis Protocol Lisinopril 20 mg 05/28/25 09:35 05/30/25 09:03 Lisinopril 20 Mg Tablet PO Not Given DAILY TITO Tramadol HCl 25 mg 05/28/25 12:34 05/30/25 15:25 Tramadol Hcl (*Crx) 25 Mg Tablet PO 25 mg Q4H PRN Administration Pain Rated 4-6 Vancomycin HCl 1 each 05/27/25 18:48 Vancomycin For Hemodialysis IVPB PRN PRN Vancomycin Protocol Radiology Results: ITS Impressions Abdomen/Pelvis CT 05/27/25 17:56 IMPRESSION: Scrotal abscesses detailed above with cellulitis. Incidental findings above. Labs Labs: Laboratory Tests 05/30/25 05:45 05/30/25 05:45 Calcium 7.9 L Total Bilirubin 0.4 AST 21 ALT 13 Alkaline Phosphatase 86 Total Protein 7.3 Albumin 3.5 Microbiology 05/29/25 15:25 Abscess Gram Stain - Final 05/29/25 15:28 Abscess Gram Stain - Final 05/27/25 16:21 Blood Blood Culture - Preliminary 05/27/25 16:55 Blood Blood Culture - Preliminary 05/27/25 16:40 Urine Clean Catch - Final
[2025-05-30] MEDS: ATORVASTATIN 20 MG TABLET PO (13:16)
[2025-05-30] MEDS: VANCOMYCIN HCL 1,000 MG in SODIUM CHLORIDE 0.9% IV 250 ML 250 MG IVPB (13:21)
[2025-05-30] MEDS: INSULIN ASPART (*BKC) 100 UNITS/ML 8 UNITS SUB-Q ×2 (13:47→17:59)
[2025-05-30] MEDS: traMADol HCL (*CRX) 25 MG TABLET PO (15:25)
[2025-05-30] MEDS: ACETAMINOPHEN 325 MG TABLET PO (17:09)
--- NOTE | 2025-05-30 18:02 | WPDANESPN ---
Anes - Prog Note Post-Op Date/Time: 05/30/25 18:02 Cardiovascular status: normal Respiratory status: normal Airway patency: baseline Mental status: baseline Post-Op hydration status: normal Vital Signs: Last Vital Signs Temp 37.9 C H 05/30/25 17:09 Pulse 101 H 05/30/25 16:00 Resp 16 05/30/25 16:00 BP 113/61 05/30/25 16:00 Pulse Ox 90 05/30/25 16:00 O2 Del Method Room Air 05/30/25 13:55 O2 Flow Rate 6 05/29/25 15:40 Pain Score (VAS): 0 I/O: Intake & Output 05/30/25 05/30/25 05/30/25 07:59 15:59 23:59 Intake Total 490 480 Output Total 3000 Balance 490 -0500 Laboratory Tests 05/30/25 05:45 05/30/25 05:45 05/29/25 05/30/25 05/30/25 20:01 05:45 07:55 WBC 19.2 H RBC 3.33 L Hgb 8.7 L Hct 27.7 L MCV 83.2 MCH 26.1 MCHC 31.4 L RDW 15.5 H Plt Count 182 MPV 11.9 H Sodium 129 L Potassium 4.3 Chloride 93 L Carbon Dioxide 17 L Anion Gap 19 H BUN 77 H D Creatinine 13.44 H Estim Creat Clear Calc 8 Estimated GFR 4 L Glucose 177 H POC Capillary Glucose 196 H 167 H Calcium 7.9 L Total Bilirubin 0.4 AST 21 ALT 13 Alkaline Phosphatase 86 Total Protein 7.3 Albumin 3.5 Random Vancomycin 05/30/25 05/30/25 05/30/25 08:00 11:25 13:30 WBC RBC Hgb Hct MCV MCH MCHC RDW Plt Count MPV Sodium Potassium Chloride Carbon Dioxide Anion Gap BUN Creatinine Estim Creat Clear Calc Estimated GFR Glucose POC Capillary Glucose 140 H 129 H Calcium Total Bilirubin AST ALT Alkaline Phosphatase Total Protein Albumin Random Vancomycin 15.9 05/30/25 16:23 WBC RBC Hgb Hct MCV MCH MCHC RDW Plt Count MPV Sodium Potassium Chloride Carbon Dioxide Anion Gap BUN Creatinine Estim Creat Clear Calc Estimated GFR Glucose POC Capillary Glucose 151 H Calcium Total Bilirubin AST ALT Alkaline Phosphatase Total Protein Albumin Random Vancomycin Microbiology 05/29/25 15:25 Abscess Gram Stain - Final 05/29/25 15:28 Abscess Gram Stain - Final 05/27/25 16:21 Blood Blood Culture - Preliminary 05/27/25 16:55 Blood Blood Culture - Preliminary 05/27/25 16:40 Urine Clean Catch - Final Post-procedural complaints: none Patient Feedback: Patient satisfied with anesthetic care.
[2025-05-30] MEDS: INSULIN ASPART (*BKC) 100 UNITS/ML SUB-Q (21:29)
[2025-05-31] VITALS (26 sets, daily range): BP systolic 96–136; BP diastolic 43–68; PULSE 77–95; RESP 14–20; TEMP 36.3–38.7; O2SAT 93–99
[2025-05-31] MEDS: ACETAMINOPHEN 325 MG TABLET PO ×3 (00:48→22:17)
[2025-05-31 05:12] LABS: Hematocrit 29.1 % (42.0-52.0); Hemoglobin 9.1 g/dL (14.0-18.0); Mean Corpuscular HGB Conc 31.3 g/dl (32-36); Mean Corpuscular Hemoglobin 26.0 pg (26-34); Mean Corpuscular Volume 83.1 fl (80-100); Platelet Count Result 195 k/mm3 (150-375); Red Blood Count 3.50 M/mm3 (4.6-6.20); White Blood Count 14.3 K/mm3 (4.5-10.0)
[2025-05-31 05:27] LABS: Alanine Aminotransferase 14 U/L (6-50); Albumin Level 3.5 g/dL (3.5-5.1); Alkaline Phosphatase 80 U/L (38-126); Anion Gap 14 mmol/L (4-12); Aspartate Amino Transferase 26 U/L (17-59); Bilirubin,Total 0.4 mg/dL (0.2-1.3); Blood Urea Nitrogen 47 mg/dL (9-20); Calcium 8.0 mg/dL (8.4-10.2); Carbon Dioxide 27 mmol/L (22-30); Chloride 92 mmol/L (98-107); Estimated CRCL calculation 11 ml/min; Estimated Glomerular Filt Rate 5; Glucose 197 mg/dL (65-110); Potassium 3.9 mmol/L (3.4-5.0); Sodium 133 mmol/L (137-145); Total Protein 7.2 g/dL (6.3-8.2)
[2025-05-31] MEDS: LIDOCAINE/PRILOCAINE CREAM 2.5-2.5% TUBE 1 EACH TOPICAL (08:05)
[2025-05-31] MEDS: ATORVASTATIN 20 MG TABLET PO (08:05)
[2025-05-31] MEDS: INSULIN ASPART (*BKC) 100 UNITS/ML SUB-Q ×2 (09:19→17:28)
[2025-05-31] MEDS: INSULIN ASPART (*BKC) 100 UNITS/ML 10 UNITS SUB-Q ×2 (09:20→17:28)
[2025-05-31] MEDS: INSULIN GLARGINE (*BKC) 100 UNITS/ML 21 UNITS SUB-Q (09:20)
--- NOTE | 2025-05-31 10:30 | P.PNNP_ITS ---
Progress Note: A&P Assessment and Plan (1) End stage renal disease: Code(s): N18.6 - End stage renal disease Status: Acute Assessment and Plan: * HD today * continue outpatient HD schedule of //Wednesday * follow electrolytes, volume status, and clearance (2) Scrotal abscess: Code(s): N49.2 - Inflammatory disorders of scrotum Status: Acute Assessment and Plan: * as noted by clinical history and imaging: * worsening pain and swelling of his scrotal right side * 10 days prior to admission he had an area of induration on his scrotal sac with a bit of drainage * given clindamycin by PCP but symptoms continued to worsen * CT of abdomen/pelvis CT: scrotum with rim-enhancing abscesses the largest on the right side measuring 2 x 2.2 cm with induration of the remaining soft tissues but no gross air within the soft tissues themselves * Urology following * s/p incision and drainage on 05/29 * local wound care * follow culture data * on antibiotics (3) Anemia: Qualifiers: Anemia type: unspecified type Qualified Code(s): D64.9 - Anemia, unspecified Code(s): D64.9 - Anemia, unspecified Status: Chronic Assessment and Plan: * due to ESRD * likely worsened by acute illness/infection * Epogen with HD * follow trend of H/H (4) Hypertension: Qualifiers: Hypertension type: unspecified Qualified Code(s): I10 - Essential (primary) hypertension Code(s): I10 - Essential (primary) hypertension Status: Chronic Assessment and Plan: * reasonable control * follow trend of hemodynamics (5) Type 2 diabetes mellitus: Qualifiers: Diabetes mellitus complication detail: with nephropathy Diabetes mellitus complication status: with kidney complications Diabetes mellitus intermediate school teacher insulin use: without intermediate school teacher use Qualified Code(s): E11.21 - Type 2 diabetes mellitus with diabetic nephropathy Code(s): E11.9 - Type 2 diabetes mellitus without complications Status: Chronic Assessment and Plan: * follow accu-cheks * glycemic control per hospitalist Will continue to follow. L Subjective Date/time seen: 05/31/25 10:30 Interval history: Follow-up for end stage renal disease on hemodialysis. Tolerating dialysis treatment at the time of my visit (seen on HD at 10:20am); tolerated dialysis treatment yesterday as well; no apparent distress noted when seen; as always, seems in good spirits; no issues/events overnight or earlier this morning. Exam 2 Narrative: General: WD/WN male in NAD Heart: normal S1 and S2; no rub Lungs: clear to auscultation Abdomen: soft, nontender, nondistended, positive bowel sounds Extremities: no cyanosis or clubbing; no edema Skin: no rash Objective Data Vital Signs Vital Signs: Vital Signs Temp Pulse Resp BP Pulse Ox O2 Del Method 05/31/25 10:30 79 122/60 05/31/25 10:15 79 96/43 L 05/31/25 10:00 80 118/61 05/31/25 09:45 79 115/59 L 05/31/25 09:30 79 116/55 L 05/31/25 09:15 77 117/58 L 05/31/25 09:00 78 115/64 05/31/25 08:45 80 120/66 05/31/25 08:43 98.7 F 82 18 122/61 05/31/25 08:30 81 136/68 05/31/25 08:24 80 136/68 05/31/25 08:00 Room Air 05/31/25 08:00 97.4 F L 80 16 114/63 95 05/31/25 04:00 98.1 F 86 16 117/61 93 05/31/25 01:45 100.7 F H 05/31/25 00:48 100.9 F H 05/31/25 00:00 100.9 F H 84 16 99/46 L 94 05/30/25 20:00 100.2 F H 96 18 122/53 L 92 05/30/25 18:00 100 F H 05/30/25 17:09 100.2 F H Intake/Output Intake/Output: Intake & Output 05/28/25 05/29/25 05/30/25 05/31/25 23:59 23:59 23:59 23:59 Intake Total 0546 174 1263 418 Output Total 3000 1500 Balance 0917 691 -6893 -5691 Meds/Results Medications: Active Medications Generic Name Dose Route Start Last Admin Trade Name Freq PRN Reason Stop Dose Admin Acetaminophen 325 mg 05/30/25 16:51 05/31/25 00:48 Acetaminophen 325 Mg Tablet PO 325 mg Q4H PRN Administration Mild Pain (1-3) or Fever Atorvastatin Calcium 20 mg 05/28/25 09:35 05/31/25 08:05 Atorvastatin 20 Mg Tablet PO 20 mg DAILY TITO Administration Dextrose 12.5 gm 05/27/25 22:05 Dextrose 50% 25 Gm/50 Ml Syringe IV PUSH PRN PRN Hypoglycemia Protocol Epoetin Jhonny-epbx 10,000 units 05/31/25 18:00 05/31/25 11:24 Epoetin Jhonny-Epbx 10,000 Units/Ml Vial IV PUSH 05/31/25 18:01 10,000 units ONCE ONE Administration Furosemide 80 mg 05/28/25 09:35 05/31/25 09:00 Furosemide 80 Mg Tablet PO Not Given DAILY TITO Glucose 15 gm 05/27/25 22:05 Glucose Oral Gel 15 Gm Of Glucse In 37.5 Gm Tube PO PRN PRN Hypoglycemia Protocol Heparin Sodium (Porcine) 5,000 units 05/31/25 21:00 Heparin Sodium 5,000 Units/Ml Vial SUB-Q Q12HR TITO Dextrose 1,000 mls @ 100 mls/hr 05/27/25 22:05 Dextrose 5% 1,000 Ml IVPB PRN PRN Hypoglycemia Protocol Albumin Human 50 mls @ 999 mls/hr 05/29/25 06:50 Albutein IVPB 06/28/25 06:49 Q10M PRN HYPOTENSION Piperacillin Sod/Tazobactam 50 mls @ 100 mls/hr 05/31/25 15:00 05/31/25 15:20 Sod 2.25 gm/ Sodium Chloride IVPB 100 mls/hr Q6H TITO Administration Insulin Aspart 2 - 5 units 05/28/25 08:00 05/31/25 13:36 Insulin Aspart (*Bkc) 100 Units/Ml SUB-Q Not Given TIDWM [facility] Protocol Insulin Aspart 1 - 2 units 05/28/25 21:00 05/30/25 21:29 Insulin Aspart (*Bkc) 100 Units/Ml SUB-Q 1 units HS TITO Administration Protocol Insulin Aspart 10 units 05/31/25 09:00 05/31/25 13:43 Insulin Aspart (*Bkc) 100 Units/Ml SUB-Q Not Given TID TITO Insulin Glargine 21 units 05/29/25 10:00 05/31/25 09:20 Insulin Glargine (*Bkc) 100 Units/Ml SUB-Q 21 units DAILY@1000 TITO Administration Lidocaine/Prilocaine 1 each 05/29/25 06:50 05/31/25 08:05 Lidocaine/Prilocaine Cream 2.5-2.5% Tube TOPICAL 1 each WITH DIALYSIS PRN Administration for dialysis Protocol Lisinopril 20 mg 05/28/25 09:35 05/31/25 09:00 Lisinopril 20 Mg Tablet PO Not Given DAILY TITO Tramadol HCl 25 mg 05/28/25 12:34 05/30/25 15:25 Tramadol Hcl (*Crx) 25 Mg Tablet PO 25 mg Q4H PRN Administration Pain Rated 4-6 Vancomycin HCl 1 each 05/27/25 18:48 Vancomycin For Hemodialysis IVPB PRN PRN Vancomycin Protocol Radiology Results: ITS Impressions Abdomen/Pelvis CT 05/27/25 17:56 IMPRESSION: Scrotal abscesses detailed above with cellulitis. Incidental findings above. Labs Labs: Laboratory Tests 05/31/25 05:07 05/31/25 05:07 Calcium 8.0 L Total Bilirubin 0.4 AST 26 ALT 14 Alkaline Phosphatase 80 Total Protein 7.2 Albumin 3.5 Random Vancomycin 22.4 H Microbiology 05/27/25 16:21 Blood Blood Culture - Preliminary 05/27/25 16:55 Blood Blood Culture - Preliminary 05/29/25 15:25 Abscess Fungal Culture - Preliminary 05/29/25 15:28 Abscess Fungal Culture - Preliminary 05/29/25 15:25 Abscess Gram Stain - Final 05/29/25 15:28 Abscess Gram Stain - Final
[2025-05-31] MEDS: EPOETIN ALFA-EPBX 10,000 UNITS/ML VIAL 10000 UNITS IV PUSH (11:24)
--- NOTE | 2025-05-31 11:53 | WPDIDCN ---
Assessment and Plan Assessment and plan (1) Scrotal abscess: Code(s): N49.2 - Inflammatory disorders of scrotum Status: Acute (2) End stage renal disease: Code(s): N18.6 - End stage renal disease Status: Acute (3) Fever: Code(s): R50.9 - Fever, unspecified Status: Acute Plan # Scrotal cellulitis with abscess and status post I and D. Cultures pending. # Postprocedure persistent fever and leukocytosis, although both improved as of today. #Diabetes and end-stage renal disease on hemodialysis. Plan: -- would prefer broader Gram-negative coverage than is being provided by Augmentin at this time and recommend changing to Zosyn adjusted for renal failure While awaiting culture results. -- okay to continue with vancomycin for now. Patient already with end-stage renal disease on hemodialysis and Anticipate a limited course of Zosyn and vancomycin which will be further adjusted based on cultures. -- discussed with both patient and his who was at bedside. --further recommendations to follow. Thank you for the consult. Patient was seen via video telehealth consultation with the assistance of staff. Chart, data, and patient independently reviewed. Patient was located at [facility] while I was located in my [place] office. Received verbal consent from patient. HPI Data of Consult Date/Time: 05/31/25 11:53 Requesting Physician: Arpan Ashley MD Primary Care Provider: Franky BrewerMD Consult Narrative Reason for consult: Scrotal abscess. Narrative: Jose Jara is a 55 year old male with past medical history significant for hypertension, diabetes, and end-stage renal disease on hemodialysis. He presented to the ED 05/27/2025 with progressive right scrotal pain and swelling. Scrotal process developed 10 days prior to admission. Had been receiving clindamycin in the outpatient setting. There are no known antibiotic allergies. On presentation he was afebrile with white blood cell count 15.8. CT scan noted stranding within the soft tissues of the scrotum, rim enhancing abscesses the largest of which on the right side measuring 2 x 2.2 cm, and no evidence of air within the tissue. He was initially placed on cefepime, metronidazole, and vancomycin. On 05/29 he underwent operative I and D by Urology. Gram stain significant for white blood cells without organisms and cultures remain pending. On 05/30 he was transition to Augmentin and vancomycin. Today T-max a 100.9? and white blood cell count has decreased from a maximum of 19.2 to 14.3. Review of Systems Review of Systems: All systems reviewed & are unremarkable except as noted in HPI and below PMFSH Past Medical History Medical History End stage renal disease Obesity (BMI 30.0-34.9) Diabetic retinopathy Type 2 diabetes mellitus Hyperlipidemia Hypertension Surgical History Surgical History Proliferative diabetic retinopathy with history of surgery Family History Family History Mother Thyroid disease Sibling Thyroid disease Father Diabetes mellitus End stage renal disease Hypertension Social History Social History Social History: Patient lives at home with his 24 years. 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 They have (I think he has had 2 children) who are healthy. He is a lifelong nonsmoker. He does not have any significant out alcohol or illicit substance use history. Code status: Full code Surrogate decision maker: Smoking status: Never smoker Alcohol intake: never Substance use: never Do You Feel Safe in your Home?: Yes Lack of Transportation: No Lack of Food: Never True Current Housing: I Have Housing Concerned About Future Housing: No Difficulty Paying Gas/Electric Bills: No Difficulty Paying for Meds: No Currently Unemployed: No Education: High School Diploma/GED Difficulty w/ Childcare or Family Care: No Living arrangements: with family Occupation/Education: occupation Gender identity (if verbalized by the patient): Male Sexual Orientation (if Verbalized by the Patient): Straight or Heterosexual Spiritual care concerns: No Meds Home Medications and Allergies Home Medications ?Medication ?Instructions ?Recorded ?Confirmed ?Type atorvastatin 20 mg tablet 20 mg PO DAILY 05/27/25 05/27/25 History calcium carbonate (Oyster Shell 500 mg PO DAILY 05/27/25 05/27/25 History Calcium 500) ergocalciferol (vitamin D2) 1,250 1,250 mcg PO DAILY 05/27/25 05/27/25 History mcg (50,000 unit) capsule furosemide 80 mg tablet 80 mg PO DAILY 05/27/25 05/27/25 History insulin aspart U-100 100 unit/mL 10 unit subcut TID 05/27/25 05/27/25 History (3 mL) subcutaneous pen insulin glargine-yfgn 100 unit/mL 25 unit subcut DAILY@1000 05/27/25 05/27/25 History (3 mL) subcutaneous pen lisinopril 20 mg tablet 20 mg PO DAILY 05/27/25 05/27/25 History Allergies Allergy/AdvReac Type Severity Reaction Status Date / Time No Known Allergies Allergy Unknown Verified 05/27/25 23:37 Vital Signs Vital Signs - 24 hr 05/30/25 12:00 05/30/25 12:15 05/30/25 12:30 Temperature Pulse Rate 90 92 92 Respiratory Rate Blood Pressure 114/62 124/61 113/58 L Pulse Oximetry Oxygen Delivery 05/30/25 12:47 05/30/25 12:52 05/30/25 13:55 Temperature 98.1 F Pulse Rate 93 93 Respiratory Rate 20 Blood Pressure 118/62 108/51 L Pulse Oximetry 94 Oxygen Delivery Room Air 05/30/25 16:00 05/30/25 17:09 05/30/25 18:00 Temperature 100.2 F H 100.2 F H 100 F H Pulse Rate 101 H Respiratory Rate 16 Blood Pressure 113/61 Pulse Oximetry 90 Oxygen Delivery 05/30/25 20:00 05/31/25 00:00 05/31/25 00:48 Temperature 100.2 F H 100.9 F H 100.9 F H Pulse Rate 96 84 Respiratory Rate 18 16 Blood Pressure 122/53 L 99/46 L Pulse Oximetry 92 94 Oxygen Delivery 05/31/25 01:45 05/31/25 04:00 05/31/25 08:00 Temperature 100.7 F H 98.1 F 97.4 F L Pulse Rate 86 80 Respiratory Rate 16 16 Blood Pressure 117/61 114/63 Pulse Oximetry 93 95 Oxygen Delivery 05/31/25 08:00 05/31/25 08:24 05/31/25 08:30 Temperature Pulse Rate 80 81 Respiratory Rate Blood Pressure 136/68 136/68 Pulse Oximetry Oxygen Delivery Room Air 05/31/25 08:43 05/31/25 08:45 05/31/25 09:00 Temperature 98.7 F Pulse Rate 82 80 78 Respiratory Rate 18 Blood Pressure 122/61 120/66 115/64 Pulse Oximetry Oxygen Delivery 05/31/25 09:15 05/31/25 09:30 05/31/25 09:45 Temperature Pulse Rate 77 79 79 Respiratory Rate Blood Pressure 117/58 L 116/55 L 115/59 L Pulse Oximetry Oxygen Delivery 05/31/25 10:00 05/31/25 10:15 05/31/25 10:30 Temperature Pulse Rate 80 79 79 Respiratory Rate Blood Pressure 118/61 96/43 L 122/60 Pulse Oximetry Oxygen Delivery Exam Narrative: He is awake and alert and nontoxic in appearance. States scrotal pain has improved. No respiratory difficulty. No abdominal distention. Scrotal dressing intact. Results Labs 05/31/25 05:07 05/31/25 05:07 Labs: Short CBC 05/31/25 Range/Units 05:07 WBC 14.3 H (4.5-10.0) K/mm3 Hgb 9.1 L (14.0-18.0) g/dL Hct 29.1 L (42.0-52.0) % Plt Count 195 (150-375) k/mm3 BMP 05/31/25 05:07 Sodium 133 L Potassium 3.9 Chloride 92 L Carbon Dioxide 27 BUN 47 H D Creatinine 10.34 H Glucose 197 H Calcium 8.0 L Liver Function 05/31/25 Range/Units 05:07 Total Bilirubin 0.4 (0.2-1.3) mg/dL AST 26 (17-59) U/L ALT 14 (6-50) U/L Alkaline Phosphatase 80 (38-126) U/L Albumin 3.5 (3.5-5.1) g/dL
[2025-05-31] MEDS: VANCOMYCIN 750 MG/NS 250 ML 750 MG/250 ML BAG 250 MG IVPB (13:39)
--- NOTE | 2025-05-31 14:00 | PM.IMPN ---
Progress Note: A&P Assessment and Plan (1) Hypertension: Qualifiers: Hypertension type: unspecified Qualified Code(s): I10 - Essential (primary) hypertension Code(s): I10 - Essential (primary) hypertension Status: Chronic (2) Type 2 diabetes mellitus: Qualifiers: Diabetes mellitus intermediate insulin use: without engine lathe tender use Diabetes mellitus complication status: with kidney complications Diabetes mellitus complication detail: with nephropathy Qualified Code(s): E11.21 - Type 2 diabetes mellitus with diabetic nephropathy Code(s): E11.9 - Type 2 diabetes mellitus without complications Status: Chronic (3) End stage renal disease: Code(s): N18.6 - End stage renal disease Status: Acute (4) Scrotal abscess: Code(s): N49.2 - Inflammatory disorders of scrotum Status: Acute Plan 55-year-old male presented with worsening pain and swelling of his scrotal right side presented to [facility] on 05/27/2025. Ten days prior to admission he did have little area of induration on his scrotal sac. Received clindamycin by PCP. ER evaluation demonstrated WBC 15.8, serum creatinine 7.96, abdomen pelvis CT with contrast demonstrating scrotal abscesses largest on right side with cellulitis. Was started on Flagyl cefepime vancomycin, Urology was consulted. Status post I and D of scrotal abscess on 05/29/2025 by Urology. 1. Scrotal abscess: Status post I and D of scrotal abscess on 05/29/2025 Urology following Id consult Follow-up intraoperative culture, urine, blood culture Pain control Currently on vancomycin, Zosyn Monitor leukocytosis 2. End-stage renal disease on dialysis: Nephrology following Dialysis as per Renal schedule 3. Diabetes mellitus: Blood glucose checked t.i.d. a.c. and HS Continue with sliding scale insulin Continue with Lantus Add 8 units of mealtime insulin as well Adjust dose as needed 6. History of hypertension: Continue with lisinopril 7. Code status: Full 8. DVT prophylaxis: Heparin subcu 9. Disposition: Pending improvement Time Spent With Patient Time: 38 minutes Subjective Date/time seen: 05/31/25 14:00 Interval history: No acute events overnight Review of Systems Review of Systems: All systems reviewed & are unremarkable except as noted in HPI and below Exam Narrative: General: male in no acute distress HEENT: Normocephalic. Atraumatic. Sclera clear and anicteric. Chest: Lungs are clear to auscultation bilaterally. No wheezes or crackles. CV: Heart was regular rate and rhythm. Abd: Abdomen was soft. Nontender. Nondistended. Positive bowel sounds. Ext: No clubbing, cyanosis, or edema. DP pulses bilaterally. Neuro: Patient is alert. Speech is clear. Objective Data Vital Signs Vital Signs: Vital Signs - 24 hr 05/30/25 16:00 05/30/25 17:09 05/30/25 18:00 Temperature 100.2 F H 100.2 F H 100 F H Pulse Rate 101 H Respiratory Rate 16 Blood Pressure 113/61 Pulse Oximetry 90 Oxygen Delivery 05/30/25 20:00 05/31/25 00:00 05/31/25 00:48 Temperature 100.2 F H 100.9 F H 100.9 F H Pulse Rate 96 84 Respiratory Rate 18 16 Blood Pressure 122/53 L 99/46 L Pulse Oximetry 92 94 Oxygen Delivery 05/31/25 01:45 05/31/25 04:00 05/31/25 08:00 Temperature 100.7 F H 98.1 F 97.4 F L Pulse Rate 86 80 Respiratory Rate 16 16 Blood Pressure 117/61 114/63 Pulse Oximetry 93 95 Oxygen Delivery 05/31/25 08:00 05/31/25 08:24 05/31/25 08:30 Temperature Pulse Rate 80 81 Respiratory Rate Blood Pressure 136/68 136/68 Pulse Oximetry Oxygen Delivery Room Air 05/31/25 08:43 05/31/25 08:45 05/31/25 09:00 Temperature 98.7 F Pulse Rate 82 80 78 Respiratory Rate 18 Blood Pressure 122/61 120/66 115/64 Pulse Oximetry Oxygen Delivery 05/31/25 09:15 05/31/25 09:30 05/31/25 09:45 Temperature Pulse Rate 77 79 79 Respiratory Rate Blood Pressure 117/58 L 116/55 L 115/59 L Pulse Oximetry Oxygen Delivery 05/31/25 10:00 05/31/25 10:15 05/31/25 10:30 Temperature Pulse Rate 80 79 79 Respiratory Rate Blood Pressure 118/61 96/43 L 122/60 Pulse Oximetry Oxygen Delivery 05/31/25 12:00 Temperature 98.1 F Pulse Rate 83 Respiratory Rate 14 Blood Pressure 119/60 Pulse Oximetry 95 Oxygen Delivery Intake/Output Intake/Output: Intake & Output 05/28/25 05/29/25 05/30/25 05/31/25 23:59 23:59 23:59 23:59 Intake Total 2770 354 5822 418 Output Total 3000 Balance 1220 740 -1790 418 Meds/Results Medications: Active Medications Generic Name Dose Route Start Last Admin Trade Name Freq PRN Reason Stop Dose Admin Acetaminophen 325 mg 05/30/25 16:51 05/31/25 00:48 Acetaminophen 325 Mg Tablet PO 325 mg Q4H PRN Administration Mild Pain (1-3) or Fever Amoxicillin/Clavulanate Potassium 1 tablet 05/30/25 21:00 05/31/25 11:54 Amoxicillin/Clavulanate K 500-125 Mg Tab PO 1 tablet Q12HR TITO Administration Atorvastatin Calcium 20 mg 05/28/25 09:35 05/31/25 08:05 Atorvastatin 20 Mg Tablet PO 20 mg DAILY TITO Administration Dextrose 12.5 gm 05/27/25 22:05 Dextrose 50% 25 Gm/50 Ml Syringe IV PUSH PRN PRN Hypoglycemia Protocol Epoetin Jhonny-epbx 10,000 units 05/31/25 18:00 Epoetin Jhonny-Epbx 10,000 Units/Ml Vial IV PUSH 05/31/25 18:01 ONCE ONE Furosemide 80 mg 05/28/25 09:35 05/31/25 09:00 Furosemide 80 Mg Tablet PO Not Given DAILY TITO Glucose 15 gm 05/27/25 22:05 Glucose Oral Gel 15 Gm Of Glucse In 37.5 Gm Tube PO PRN PRN Hypoglycemia Protocol Dextrose 1,000 mls @ 100 mls/hr 05/27/25 22:05 Dextrose 5% 1,000 Ml IVPB PRN PRN Hypoglycemia Protocol Albumin Human 50 mls @ 999 mls/hr 05/29/25 06:50 Albutein IVPB 06/28/25 06:49 Q10M PRN HYPOTENSION Insulin Aspart 2 - 5 units 05/28/25 08:00 05/31/25 13:36 Insulin Aspart (*Bkc) 100 Units/Ml SUB-Q Not Given TIDWM TITO Protocol Insulin Aspart 1 - 2 units 05/28/25 21:00 05/30/25 21:29 Insulin Aspart (*Bkc) 100 Units/Ml SUB-Q 1 units HS TITO Administration Protocol Insulin Aspart 10 units 05/31/25 09:00 05/31/25 13:43 Insulin Aspart (*Bkc) 100 Units/Ml SUB-Q Not Given TID [facility] Insulin Glargine 21 units 05/29/25 10:00 05/31/25 09:20 Insulin Glargine (*Bkc) 100 Units/Ml SUB-Q 21 units DAILY@1000 TITO Administration Lidocaine/Prilocaine 1 each 05/29/25 06:50 05/31/25 08:05 Lidocaine/Prilocaine Cream 2.5-2.5% Tube TOPICAL 1 each WITH DIALYSIS PRN Administration for dialysis Protocol Lisinopril 20 mg 05/28/25 09:35 05/31/25 09:00 Lisinopril 20 Mg Tablet PO Not Given DAILY [facility] Tramadol HCl 25 mg 05/28/25 12:34 05/30/25 15:25 Tramadol Hcl (*Crx) 25 Mg Tablet PO 25 mg Q4H PRN Administration Pain Rated 4-6 Vancomycin HCl 1 each 05/27/25 18:48 Vancomycin For Hemodialysis IVPB PRN PRN Vancomycin Protocol Radiology Results: ITS Impressions Abdomen/Pelvis CT 05/27/25 17:56 IMPRESSION: Scrotal abscesses detailed above with cellulitis. Incidental findings above. Labs Labs: Laboratory Results - last 24 hr 05/30/25 05/30/25 05/31/25 16:23 21:18 05:07 WBC 14.3 H RBC 3.50 L Hgb 9.1 L Hct 29.1 L MCV 83.1 MCH 26.0 MCHC 31.3 L RDW 15.5 H Plt Count 195 MPV 10.6 H Sodium 133 L Potassium 3.9 Chloride 92 L Carbon Dioxide 27 Anion Gap 14 H BUN 47 H D Creatinine 10.34 H Estim Creat Clear Calc 11 Estimated GFR 5 L Glucose 197 H POC Capillary Glucose 151 H 226 H Calcium 8.0 L Total Bilirubin 0.4 AST 26 ALT 14 Alkaline Phosphatase 80 Total Protein 7.2 Albumin 3.5 Random Vancomycin 22.4 H 05/31/25 05/31/25 05/31/25 05:28 07:46 12:03 WBC RBC Hgb Hct MCV MCH MCHC RDW Plt Count MPV Sodium Potassium Chloride Carbon Dioxide Anion Gap BUN Creatinine Estim Creat Clear Calc Estimated GFR Glucose POC Capillary Glucose 194 H 209 H 105 Calcium Total Bilirubin AST ALT Alkaline Phosphatase Total Protein Albumin Random Vancomycin 05/31/25 12:36 WBC RBC Hgb Hct MCV MCH MCHC RDW Plt Count MPV Sodium Potassium Chloride Carbon Dioxide Anion Gap BUN Creatinine Estim Creat Clear Calc Estimated GFR Glucose POC Capillary Glucose 100 Calcium Total Bilirubin AST ALT Alkaline Phosphatase Total Protein Albumin Random Vancomycin Quality VTE Prophylaxis VTE prophylaxis: pharmacologic ordered
--- NOTE | 2025-05-31 15:14 | WPDUROPN2 ---
Progress Note: A&P Assessment and Plan (1) Scrotal abscess: Code(s): N49.2 - Inflammatory disorders of scrotum Status: Acute (2) End stage renal disease: Code(s): N18.6 - End stage renal disease Status: Acute Plan -WBC down to 14.3 today from 19 -esrd and has gotten HD 2 days in a row. neph managing. -wound team managing dressing changes. -culture driven antibiotic therapy from [facility]. ID is managing. Subjective Subjective Date/Time Seen: 05/31/25 15:14 Interval history: patient evaluated in dialysis. he reports he is doing well. pain is controlled and he and his were shown how to pack the open area of the scrotum. Review of Systems Review of Systems: per hpi Exam Const: General: comfortable and no acute distress HENMT: Mouth: Yes moist mucous membranes Eyes: General: appearance normal, both eyes and all related structures Resp: Effort & Inspection: normal respiratory effort GI: GI Palp: Yes Soft to palpation Urinary Catheter: Urinary Catheter: other (no cath and hasnt made urine in a few days. ) Skin: General skin exam: normal color Neuro: Speech: normal speech Psych: Mental Status: mental status grossly normal Affect: normal affect Objective Data Vital Signs Vital Signs: Vital Signs - 24 hr 05/30/25 16:00 05/30/25 17:09 05/30/25 18:00 Temperature 100.2 F H 100.2 F H 100 F H Pulse Rate 101 H Respiratory Rate 16 Blood Pressure 113/61 Pulse Oximetry 90 Oxygen Delivery 05/30/25 20:00 05/31/25 00:00 05/31/25 00:48 Temperature 100.2 F H 100.9 F H 100.9 F H Pulse Rate 96 84 Respiratory Rate 18 16 Blood Pressure 122/53 L 99/46 L Pulse Oximetry 92 94 Oxygen Delivery 05/31/25 01:45 05/31/25 04:00 05/31/25 08:00 Temperature 100.7 F H 98.1 F 97.4 F L Pulse Rate 86 80 Respiratory Rate 16 16 Blood Pressure 117/61 114/63 Pulse Oximetry 93 95 Oxygen Delivery 05/31/25 08:00 05/31/25 08:24 05/31/25 08:30 Temperature Pulse Rate 80 81 Respiratory Rate Blood Pressure 136/68 136/68 Pulse Oximetry Oxygen Delivery Room Air 05/31/25 08:43 05/31/25 08:45 05/31/25 09:00 Temperature 98.7 F Pulse Rate 82 80 78 Respiratory Rate 18 Blood Pressure 122/61 120/66 115/64 Pulse Oximetry Oxygen Delivery 05/31/25 09:15 05/31/25 09:30 05/31/25 09:45 Temperature Pulse Rate 77 79 79 Respiratory Rate Blood Pressure 117/58 L 116/55 L 115/59 L Pulse Oximetry Oxygen Delivery 05/31/25 10:00 05/31/25 10:15 05/31/25 10:30 Temperature Pulse Rate 80 79 79 Respiratory Rate Blood Pressure 118/61 96/43 L 122/60 Pulse Oximetry Oxygen Delivery 05/31/25 10:45 05/31/25 11:00 05/31/25 11:15 Temperature Pulse Rate 78 81 81 Respiratory Rate Blood Pressure 112/59 L 107/59 L 124/61 Pulse Oximetry Oxygen Delivery 05/31/25 11:28 05/31/25 11:36 05/31/25 12:00 Temperature 98.6 F 98.1 F Pulse Rate 83 84 83 Respiratory Rate 18 14 Blood Pressure 101/57 L 113/54 L 119/60 Pulse Oximetry 99 95 Oxygen Delivery Intake/Output Intake/Output: Intake & Output 05/28/25 05/29/25 05/30/25 05/31/25 23:59 23:59 23:59 23:59 Intake Total 7140 180 1239 418 Output Total 3000 1500 Balance 1220 740 -4774 -7616 Meds/Results Medications: Active Medications Generic Name Dose Route Start Last Admin Trade Name Fre PRN Reason Stop Dose Admin Acetaminophen 325 mg 05/30/25 16:51 05/31/25 00:48 Acetaminophen 325 Mg Tablet PO 325 mg Q4H PRN Administration Mild Pain (1-3) or Fever Atorvastatin Calcium 20 mg 05/28/25 09:35 05/31/25 08:05 Atorvastatin 20 Mg Tablet PO 20 mg DAILY TITO Administration Dextrose 12.5 gm 05/27/25 22:05 Dextrose 50% 25 Gm/50 Ml Syringe IV PUSH PRN PRN Hypoglycemia Protocol Epoetin Jhonny-epbx 10,000 units 05/31/25 18:00 05/31/25 11:24 Epoetin Jhonny-Epbx 10,000 Units/Ml Vial IV PUSH 05/31/25 18:01 10,000 units ONCE ONE Administration Furosemide 80 mg 05/28/25 09:35 05/31/25 09:00 Furosemide 80 Mg Tablet PO Not Given DAILY [facility] Glucose 15 gm 05/27/25 22:05 Glucose Oral Gel 15 Gm Of Glucse In 37.5 Gm Tube PO PRN PRN Hypoglycemia Protocol Heparin Sodium (Porcine) 5,000 units 05/31/25 21:00 Heparin Sodium 5,000 Units/Ml Vial SUB-Q Q12HR TITO Dextrose 1,000 mls @ 100 mls/hr 05/27/25 22:05 Dextrose 5% 1,000 Ml IVPB PRN PRN Hypoglycemia Protocol Albumin Human 50 mls @ 999 mls/hr 05/29/25 06:50 Albutein IVPB 06/28/25 06:49 Q10M PRN HYPOTENSION Piperacillin Sod/Tazobactam 50 mls @ 100 mls/hr 05/31/25 15:00 Sod 2.25 gm/ Sodium Chloride IVPB Q6H [facility] Insulin Aspart 2 - 5 units 05/28/25 08:00 05/31/25 13:36 Insulin Aspart (*Bkc) 100 Units/Ml SUB-Q Not Given TIDWM [facility] Protocol Insulin Aspart 1 - 2 units 05/28/25 21:00 05/30/25 21:29 Insulin Aspart (*Bkc) 100 Units/Ml SUB-Q 1 units HS [facility] Administration Protocol Insulin Aspart 10 units 05/31/25 09:00 05/31/25 13:43 Insulin Aspart (*Bkc) 100 Units/Ml SUB-Q Not Given TID [facility] Insulin Glargine 21 units 05/29/25 10:00 05/31/25 09:20 Insulin Glargine (*Bkc) 100 Units/Ml SUB-Q 21 units DAILY@1000 [facility] Administration Lidocaine/Prilocaine 1 each 05/29/25 06:50 05/31/25 08:05 Lidocaine/Prilocaine Cream 2.5-2.5% Tube TOPICAL 1 each WITH DIALYSIS PRN Administration for dialysis Protocol Lisinopril 20 mg 05/28/25 09:35 05/31/25 09:00 Lisinopril 20 Mg Tablet PO Not Given DAILY [facility] Tramadol HCl 25 mg 05/28/25 12:34 05/30/25 15:25 Tramadol Hcl (*Crx) 25 Mg Tablet PO 25 mg Q4H PRN Administration Pain Rated 4-6 Vancomycin HCl 1 each 05/27/25 18:48 Vancomycin For Hemodialysis IVPB PRN PRN Vancomycin Protocol Radiology Results: ITS Impressions Abdomen/Pelvis CT 05/27/25 17:56 IMPRESSION: Scrotal abscesses detailed above with cellulitis. Incidental findings above. Labs Labs: Laboratory Results - last 24 hr 05/30/25 05/30/25 05/31/25 16:23 21:18 05:07 WBC 14.3 H RBC 3.50 L Hgb 9.1 L Hct 29.1 L MCV 83.1 MCH 26.0 MCHC 31.3 L RDW 15.5 H Plt Count 195 MPV 10.6 H Sodium 133 L Potassium 3.9 Chloride 92 L Carbon Dioxide 27 Anion Gap 14 H BUN 47 H D Creatinine 10.34 H Estim Creat Clear Calc 11 Estimated GFR 5 L Glucose 197 H POC Capillary Glucose 151 H 226 H Calcium 8.0 L Total Bilirubin 0.4 AST 26 ALT 14 Alkaline Phosphatase 80 Total Protein 7.2 Albumin 3.5 Random Vancomycin 22.4 H 05/31/25 05/31/25 05/31/25 05:28 07:46 12:03 WBC RBC Hgb Hct MCV MCH MCHC RDW Plt Count MPV Sodium Potassium Chloride Carbon Dioxide Anion Gap BUN Creatinine Estim Creat Clear Calc Estimated GFR Glucose POC Capillary Glucose 194 H 209 H 105 Calcium Total Bilirubin AST ALT Alkaline Phosphatase Total Protein Albumin Random Vancomycin 05/31/25 12:36 WBC RBC Hgb Hct MCV MCH MCHC RDW Plt Count MPV Sodium Potassium Chloride Carbon Dioxide Anion Gap BUN Creatinine Estim Creat Clear Calc Estimated GFR Glucose POC Capillary Glucose 100 Calcium Total Bilirubin AST ALT Alkaline Phosphatase Total Protein Albumin Random Vancomycin
[2025-05-31] MEDS: PIPERACILLIN/TAZOBACTAM SOD 2.25 GM in SODIUM CHLORIDE 0.9% IV 50 ML 100 ML IVPB ×2 (15:20→20:36)
[2025-05-31] MEDS: traMADol HCL (*CRX) 25 MG TABLET PO (16:36)
--- NOTE | 2025-05-31 21:30 | PC.NURSE ---
Notified Roseann Enciso regarding pts temperature. Temp of 101.9 F and pt received 1 tab (325mg) tylenol, temp still elevated at 100 f. New order to give another 1 tab (325mg) tylenol PO NOW. New order to change existing order to 2 tabs (650mg) tylenol PO Q4PRN.
[2025-06-01] VITALS: BP 128/67; PULSE 90; RESP 18; TEMP 37.7; O2SAT 98
[2025-06-01] MEDS: PIPERACILLIN/TAZOBACTAM SOD 2.25 GM in SODIUM CHLORIDE 0.9% IV 50 ML 100 ML IVPB ×4 (03:02→20:33)
[2025-06-01] MEDS: ACETAMINOPHEN 325 MG TABLET 650 MG PO (03:07)
[2025-06-01 03:44] VITALS: BP 113/60; PULSE 84; RESP 18; TEMP 37.3; O2SAT 94
[2025-06-01 06:28] LABS: Hematocrit 29.7 % (42.0-52.0); Hemoglobin 8.9 g/dL (14.0-18.0); Mean Corpuscular HGB Conc 30.0 g/dl (32-36); Mean Corpuscular Hemoglobin 25.6 pg (26-34); Mean Corpuscular Volume 85.6 fl (80-100); Platelet Count Result 228 k/mm3 (150-375); Red Blood Count 3.47 M/mm3 (4.6-6.20); White Blood Count 10.3 K/mm3 (4.5-10.0)
[2025-06-01 06:49] LABS: Alanine Aminotransferase 14 U/L (6-50); Albumin Level 3.4 g/dL (3.5-5.1); Alkaline Phosphatase 72 U/L (38-126); Anion Gap 9 mmol/L (4-12); Aspartate Amino Transferase 24 U/L (17-59); Bilirubin,Total 0.4 mg/dL (0.2-1.3); Blood Urea Nitrogen 43 mg/dL (9-20); Calcium 7.9 mg/dL (8.4-10.2); Carbon Dioxide 30 mmol/L (22-30); Chloride 94 mmol/L (98-107); Estimated CRCL calculation 12 ml/min; Estimated Glomerular Filt Rate 6; Glucose 171 mg/dL (65-110); Potassium 3.5 mmol/L (3.4-5.0); Sodium 133 mmol/L (137-145); Total Protein 6.9 g/dL (6.3-8.2)
[2025-06-01 07:57] VITALS: BP 125/72; PULSE 80; RESP 16; TEMP 36.6; O2SAT 97
[2025-06-01] MEDS: INSULIN ASPART (*BKC) 100 UNITS/ML 10 UNITS SUB-Q ×3 (08:50→17:10)
[2025-06-01] MEDS: ATORVASTATIN 20 MG TABLET PO (08:51)
[2025-06-01] MEDS: FUROSEMIDE 80 MG TABLET PO (08:51)
--- NOTE | 2025-06-01 10:02 | P.PNUR_ITS ---
Progress Note: A&P Assessment and Plan (1) Scrotal abscess: Code(s): N49.2 - Inflammatory disorders of scrotum Status: Acute (2) End stage renal disease: Code(s): N18.6 - End stage renal disease Status: Acute Plan -WBC down to 10.3 today from 14.3 yesterday -esrd and is on HD. neph managing. -wound team managing dressing changes. -culture driven antibiotic therapy from [facility]. ID is managing. -patient and were taught how to pack and manage wound Subjective Subjective Date/Time Seen: 06/01/25 10:02 Interval history: patient evaluated in his room. He reports he is doing great and he is feeling good. pain controlled. per the patient and nurse, he is febrile in the evening controlled with tylenol and afebrile during day. Review of Systems Review of Systems: per hpi All systems reviewed & are unremarkable except as noted in HPI and below Exam Const: General: cooperative, healthy appearing, comfortable and no acute distress Orientation/consciousness: oriented to person, oriented to place and oriented to time HENMT: Head: normal to inspection Mouth: Yes moist mucous membranes Eyes: General: appearance normal, both eyes and all related structures Resp: Effort & Inspection: normal respiratory effort : Other: right scrotal surgical opening is packed. drainage is minimal. no erythema. There is no crepitus. The testis and epididymis are normal. Urinary Catheter: Urinary Catheter: other (no cath and hasnt made urine in a few days. ) Skin: General skin exam: normal color Psych: Appearance: grossly normal and well kempt Mental Status: mental status grossly normal Speech and movement: Normal speech and movement present Affect: normal affect Objective Data Vital Signs Vital Signs: Vital Signs - 24 hr 05/31/25 10:15 05/31/25 10:30 05/31/25 10:45 Temperature Pulse Rate 79 79 78 Respiratory Rate Blood Pressure 96/43 L 122/60 112/59 L Pulse Oximetry Oxygen Delivery 05/31/25 11:00 05/31/25 11:15 05/31/25 11:28 Temperature Pulse Rate 81 81 83 Respiratory Rate Blood Pressure 107/59 L 124/61 101/57 L Pulse Oximetry Oxygen Delivery 05/31/25 11:36 05/31/25 12:00 05/31/25 16:00 Temperature 98.6 F 98.1 F 97.6 F Pulse Rate 84 83 89 Respiratory Rate 18 14 14 Blood Pressure 113/54 L 119/60 111/51 L Pulse Oximetry 99 95 94 Oxygen Delivery 05/31/25 20:00 05/31/25 20:00 05/31/25 20:37 Temperature 101.3 F H 101.6 F H Pulse Rate 95 Respiratory Rate 20 Blood Pressure 125/62 Pulse Oximetry 97 Oxygen Delivery Room Air 05/31/25 22:17 06/01/25 00:00 06/01/25 03:44 Temperature 100.9 F H 99.9 F H 99.1 F Pulse Rate 90 84 Respiratory Rate 18 18 Blood Pressure 128/67 113/60 Pulse Oximetry 98 94 Oxygen Delivery 06/01/25 07:57 Temperature 97.9 F Pulse Rate 80 Respiratory Rate 16 Blood Pressure 125/72 Pulse Oximetry 97 Oxygen Delivery Intake/Output Intake/Output: Intake & Output 05/29/25 05/30/25 05/31/25 06/01/25 23:59 23:59 23:59 23:59 Intake Total 740 1210 758 948 Output Total 3000 1500 Balance 740 -1790 -742 948 Meds/Results Medications: Active Medications Generic Name Dose Route Start Last Admin Trade Name Freq PRN Reason Stop Dose Admin Acetaminophen 650 mg 05/31/25 21:55 06/01/25 03:07 Acetaminophen 325 Mg Tablet PO 650 mg Q4H PRN Administration Mild Pain (1-3) or Fever Atorvastatin Calcium 20 mg 05/28/25 09:35 06/01/25 08:51 Atorvastatin 20 Mg Tablet PO 20 mg DAILY TITO Administration Dextrose 12.5 gm 05/27/25 22:05 Dextrose 50% 25 Gm/50 Ml Syringe IV PUSH PRN PRN Hypoglycemia Protocol Furosemide 80 mg 05/28/25 09:35 06/01/25 08:51 Furosemide 80 Mg Tablet PO 80 mg DAILY TITO Administration Glucose 15 gm 05/27/25 22:05 Glucose Oral Gel 15 Gm Of Glucse In 37.5 Gm Tube PO PRN PRN Hypoglycemia Protocol Heparin Sodium (Porcine) 5,000 units 05/31/25 21:00 06/01/25 08:50 Heparin Sodium 5,000 Units/Ml Vial SUB-Q 5,000 units Q12HR TITO Administration Dextrose 1,000 mls @ 100 mls/hr 05/27/25 22:05 Dextrose 5% 1,000 Ml IVPB PRN PRN Hypoglycemia Protocol Albumin Human 50 mls @ 999 mls/hr 05/29/25 06:50 Albutein IVPB 06/28/25 06:49 Q10M PRN HYPOTENSION Piperacillin Sod/Tazobactam 50 mls @ 100 mls/hr 05/31/25 15:00 06/01/25 03:02 Sod 2.25 gm/ Sodium Chloride IVPB 100 mls/hr Q6H TITO Administration Insulin Aspart 2 - 5 units 05/28/25 08:00 06/01/25 07:32 Insulin Aspart (*Bkc) 100 Units/Ml SUB-Q Not Given TIDWM [facility] Protocol Insulin Aspart 1 - 2 units 05/28/25 21:00 05/31/25 20:37 Insulin Aspart (*Bkc) 100 Units/Ml SUB-Q Not Given HS TITO Protocol Insulin Aspart 10 units 05/31/25 09:00 06/01/25 08:50 Insulin Aspart (*Bkc) 100 Units/Ml SUB-Q 10 units TID T[facility]O Administration Insulin Glargine 21 units 05/29/25 10:00 05/31/25 09:20 Insulin Glargine (*Bkc) 100 Units/Ml SUB-Q 21 units DAILY@1000 [facility] Administration Lidocaine/Prilocaine 1 each 05/29/25 06:50 05/31/25 08:05 Lidocaine/Prilocaine Cream 2.5-2.5% Tube TOPICAL 1 each WITH DIALYSIS PRN Administration for dialysis Protocol Lisinopril 20 mg 05/28/25 09:35 06/01/25 08:51 Lisinopril 20 Mg Tablet PO 20 mg DAILY [facility]ITO Administration Tramadol HCl 25 mg 05/28/25 12:34 05/31/25 16:36 Tramadol Hcl (*Crx) 25 Mg Tablet PO 25 mg Q4H PRN Administration Pain Rated 4-6 Vancomycin HCl 1 each 05/27/25 18:48 Vancomycin For Hemodialysis IVPB PRN PRN Vancomycin Protocol Radiology Results: ITS Impressions Abdomen/Pelvis CT 05/27/25 17:56 IMPRESSION: Scrotal abscesses detailed above with cellulitis. Incidental findings above. Labs Labs: Laboratory Results - last 24 hr 05/31/25 05/31/25 05/31/25 12:03 12:36 16:55 WBC RBC Hgb Hct MCV MCH MCHC RDW Plt Count MPV Sodium Potassium Chloride Carbon Dioxide Anion Gap BUN Creatinine Estim Creat Clear Calc Estimated GFR Glucose POC Capillary Glucose 105 100 231 H Calcium Total Bilirubin AST ALT Alkaline Phosphatase Total Protein Albumin 05/31/25 06/01/25 06/01/25 20:12 06:08 07:28 WBC 10.3 H RBC 3.47 L Hgb 8.9 L Hct 29.7 L MCV 85.6 MCH 25.6 L MCHC 30.0 L RDW 15.4 H Plt Count 228 MPV 10.9 H Sodium 133 L Potassium 3.5 Chloride 94 L Carbon Dioxide 30 Anion Gap 9 BUN 43 H Creatinine 8.74 H Estim Creat Clear Calc 12 Estimated GFR 6 L Glucose 171 H POC Capillary Glucose 179 H 177 H Calcium 7.9 L Total Bilirubin 0.4 AST 24 ALT 14 Alkaline Phosphatase 72 Total Protein 6.9 Albumin 3.4 L
[2025-06-01] MEDS: INSULIN GLARGINE (*BKC) 100 UNITS/ML 21 UNITS SUB-Q (10:03)
--- NOTE | 2025-06-01 10:46 | P.PNNP_ITS ---
Progress Note: A&P Assessment and Plan (1) End stage renal disease: Code(s): N18.6 - End stage renal disease Status: Acute Assessment and Plan: * HD tomorrow * continue outpatient HD schedule of //Wednesday * follow electrolytes, volume status, and clearance (2) Scrotal abscess: Code(s): N49.2 - Inflammatory disorders of scrotum Status: Acute Assessment and Plan: * as noted by clinical history and imaging: * worsening pain and swelling of his scrotal right side * 10 days prior to admission he had an area of induration on his scrotal sac with a bit of drainage * given clindamycin by PCP but symptoms continued to worsen * CT of abdomen/pelvis CT: scrotum with rim-enhancing abscesses the largest on the right side measuring 2 x 2.2 cm with induration of the remaining soft tissues but no gross air within the soft tissues themselves * Urology following * s/p incision and drainage on 05/29 * local wound care * follow culture data * Infectious Disease following * on antibiotics (3) Anemia: Qualifiers: Anemia type: unspecified type Qualified Code(s): D64.9 - Anemia, unspecified Code(s): D64.9 - Anemia, unspecified Status: Chronic Assessment and Plan: * due to ESRD * likely worsened by acute illness/infection * Epogen with HD * follow trend of H/H (4) Hypertension: Qualifiers: Hypertension type: unspecified Qualified Code(s): I10 - Essential (primary) hypertension Code(s): I10 - Essential (primary) hypertension Status: Chronic Assessment and Plan: * reasonable control * follow trend of hemodynamics (5) Type 2 diabetes mellitus: Qualifiers: Diabetes mellitus complication detail: with nephropathy Diabetes mellitus complication status: with kidney complications 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 L Subjective Date/time seen: 06/01/25 10:46 Interval history: Follow-up for end stage renal disease on hemodialysis. Tolerated dialysis treatment yesterday without any issues or problems; as always, remains in good spirits; pain control seems satisfactory; febrile in the last 24 hours with a Tmax of 101.6?; no apparent distress noted at the time of my visit. Exam 2 Narrative: General: WD/WN male in NAD Heart: normal S1 and S2; no rub Lungs: clear to auscultation Abdomen: soft, nontender, nondistended, positive bowel sounds Extremities: no cyanosis or clubbing; no edema Skin: no nodules Objective Data Vital Signs Vital Signs: Vital Signs Temp Pulse Resp BP Pulse Ox O2 Del Method 06/01/25 07:57 97.9 F 80 16 125/72 97 06/01/25 03:44 99.1 F 84 18 113/60 94 06/01/25 00:00 99.9 F H 90 18 128/67 98 05/31/25 22:17 100.9 F H 05/31/25 20:37 101.6 F H 05/31/25 20:00 Room Air 05/31/25 20:00 101.3 F H 95 20 125/62 97 Intake/Output Intake/Output: Intake & Output 05/29/25 05/30/25 05/31/25 06/01/25 23:59 23:59 23:59 23:59 Intake Total 740 6022 253 6935 Output Total 3000 1500 Balance 740 -1790 -742 1166 Meds/Results Medications: Active Medications Generic Name Dose Route Start Last Admin Trade Name Freq PRN Reason Stop Dose Admin Acetaminophen 650 mg 05/31/25 21:55 06/01/25 03:07 Acetaminophen 325 Mg Tablet PO 650 mg Q4H PRN Administration Mild Pain (1-3) or Fever Atorvastatin Calcium 20 mg 05/28/25 09:35 06/01/25 08:51 Atorvastatin 20 Mg Tablet PO 20 mg DAILY TITO Administration Dextrose 12.5 gm 05/27/25 22:05 Dextrose 50% 25 Gm/50 Ml Syringe IV PUSH PRN PRN Hypoglycemia Protocol Furosemide 80 mg 05/28/25 09:35 06/01/25 08:51 Furosemide 80 Mg Tablet PO 80 mg DAILY TITO Administration Glucose 15 gm 05/27/25 22:05 Glucose Oral Gel 15 Gm Of Glucse In 37.5 Gm Tube PO PRN PRN Hypoglycemia Protocol Heparin Sodium (Porcine) 5,000 units 05/31/25 21:00 06/01/25 08:50 Heparin Sodium 5,000 Units/Ml Vial SUB-Q 5,000 units Q12HR TITO Administration Dextrose 1,000 mls @ 100 mls/hr 05/27/25 22:05 Dextrose 5% 1,000 Ml IVPB PRN PRN Hypoglycemia Protocol Albumin Human 50 mls @ 999 mls/hr 05/29/25 06:50 Albutein IVPB 06/28/25 06:49 Q10M PRN HYPOTENSION Piperacillin Sod/Tazobactam 50 mls @ 100 mls/hr 05/31/25 15:00 06/01/25 10:20 Sod 2.25 gm/ Sodium Chloride IVPB Infused Q6H TITO Infusion Insulin Aspart 2 - 5 units 05/28/25 08:00 06/01/25 12:56 Insulin Aspart (*Bkc) 100 Units/Ml SUB-Q 2 units TIDWM TITO Administration Protocol Insulin Aspart 1 - 2 units 05/28/25 21:00 05/31/25 20:37 Insulin Aspart (*Bkc) 100 Units/Ml SUB-Q Not Given HS TITO Protocol Insulin Aspart 10 units 05/31/25 09:00 06/01/25 12:55 Insulin Aspart (*Bkc) 100 Units/Ml SUB-Q 10 units TID TITO Administration Insulin Glargine 21 units 05/29/25 10:00 06/01/25 10:03 Insulin Glargine (*Bkc) 100 Units/Ml SUB-Q 21 units DAILY@1000 TITO Administration Lidocaine/Prilocaine 1 each 05/29/25 06:50 05/31/25 08:05 Lidocaine/Prilocaine Cream 2.5-2.5% Tube TOPICAL 1 each WITH DIALYSIS PRN Administration for dialysis Protocol Lisinopril 20 mg 05/28/25 09:35 06/01/25 08:51 Lisinopril 20 Mg Tablet PO 20 mg DAILY TITO Administration Tramadol HCl 25 mg 05/28/25 12:34 05/31/25 16:36 Tramadol Hcl (*Crx) 25 Mg Tablet PO 25 mg Q4H PRN Administration Pain Rated 4-6 Vancomycin HCl 1 each 05/27/25 18:48 Vancomycin For Hemodialysis IVPB PRN PRN Vancomycin Protocol Radiology Results: ITS Impressions Abdomen/Pelvis CT 05/27/25 17:56 IMPRESSION: Scrotal abscesses detailed above with cellulitis. Incidental findings above. Labs Labs: Laboratory Tests 06/01/25 06:08 06/01/25 06:08 Calcium 7.9 L Total Bilirubin 0.4 AST 24 ALT 14 Alkaline Phosphatase 72 Total Protein 6.9 Albumin 3.4 L Microbiology 05/27/25 16:21 Blood Blood Culture - Preliminary 05/27/25 16:55 Blood Blood Culture - Preliminary
--- NOTE | 2025-06-01 10:49 | PM.IMPN ---
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 Diabetes mellitus complication status: with kidney complications Diabetes mellitus complication detail: with nephropathy Qualified Code(s): E11.21 - Type 2 diabetes mellitus with diabetic nephropathy Code(s): E11.9 - Type 2 diabetes mellitus without complications Status: Chronic (3) End stage renal disease: Code(s): N18.6 - End stage renal disease Status: Acute (4) Scrotal abscess: Code(s): N49.2 - Inflammatory disorders of scrotum Status: Acute Plan 55-year-old male presented with worsening pain and swelling of his scrotal right side presented to [facility] on 05/[facility]. Ten days prior to admission he did have little area of induration on his scrotal sac. Received clindamycin by PCP. ER evaluation demonstrated WBC 15.8, serum creatinine 7.96, abdomen pelvis CT with contrast demonstrating scrotal abscesses largest on right side with cellulitis. Was started on Flagyl cefepime vancomycin, Urology was consulted. Status post I and D of scrotal abscess on 05/29/2025 by Urology. 1. Scrotal abscess: Status post I and D of scrotal abscess on 05/29/2025 Urology following Id consult appreciated Follow-up intraoperative culture, urine, blood culture Pain control Tylenol p.r.n. for fever Currently on vancomycin, Zosyn Monitor leukocytosis, improving 2. End-stage renal disease on dialysis: Nephrology following Dialysis as per Renal schedule 3. Diabetes mellitus: Blood glucose checked t.i.d. a.c. and HS Continue with sliding scale insulin Continue with Lantus, 8 units of mealtime insulin Adjust dose as needed 6. History of hypertension: Continue with lisinopril 7. Code status: Full 8. DVT prophylaxis: Heparin subcu 9. Disposition: Pending improvement/pending culture finalization Time Spent With Patient Time: 38 minutes Subjective Date/time seen: 06/01/25 10:49 Interval history: Spiked a temperature of 100.9? overnight Review of Systems Review of Systems: All systems reviewed & are unremarkable except as noted in HPI and below Exam Narrative: General: male in no acute distress HEENT: Normocephalic. Atraumatic. Sclera clear and anicteric. Chest: Lungs are clear to auscultation bilaterally. No wheezes or crackles. CV: Heart was regular rate and rhythm. Abd: Abdomen was soft. Nontender. Nondistended. Positive bowel sounds. Ext: No clubbing, cyanosis, or edema. DP pulses bilaterally. Neuro: Patient is alert. Speech is clear. Objective Data Vital Signs Vital Signs: Vital Signs - 24 hr 05/31/25 11:00 05/31/25 11:15 05/31/25 11:28 Temperature Pulse Rate 81 81 83 Respiratory Rate Blood Pressure 107/59 L 124/61 101/57 L Pulse Oximetry Oxygen Delivery 05/31/25 11:36 05/31/25 12:00 05/31/25 16:00 Temperature 98.6 F 98.1 F 97.6 F Pulse Rate 84 83 89 Respiratory Rate 18 14 14 Blood Pressure 113/54 L 119/60 111/51 L Pulse Oximetry 99 95 94 Oxygen Delivery 05/31/25 20:00 05/31/25 20:00 05/31/25 20:37 Temperature 101.3 F H 101.6 F H Pulse Rate 95 Respiratory Rate 20 Blood Pressure 125/62 Pulse Oximetry 97 Oxygen Delivery Room Air 05/31/25 22:17 06/01/25 00:00 06/01/25 03:44 Temperature 100.9 F H 99.9 F H 99.1 F Pulse Rate 90 84 Respiratory Rate 18 18 Blood Pressure 128/67 113/60 Pulse Oximetry 98 94 Oxygen Delivery 06/01/25 07:57 Temperature 97.9 F Pulse Rate 80 Respiratory Rate 16 Blood Pressure 125/72 Pulse Oximetry 97 Oxygen Delivery Intake/Output Intake/Output: Intake & Output 05/29/25 05/30/25 05/31/25 06/01/25 23:59 23:59 23:59 23:59 Intake Total 740 1210 758 998 Output Total 3000 1500 Balance 052 -2659 -579 998 Meds/Results Medications: Active Medications Generic Name Dose Route Start Last Admin Trade Name Freq PRN Reason Stop Dose Admin Acetaminophen 650 mg 05/31/25 21:55 06/01/25 03:07 Acetaminophen 325 Mg Tablet PO 650 mg Q4H PRN Administration Mild Pain (1-3) or Fever Atorvastatin Calcium 20 mg 05/28/25 09:35 06/01/25 08:51 Atorvastatin 20 Mg Tablet PO 20 mg DAILY TITO Administration Dextrose 12.5 gm 05/27/25 22:05 Dextrose 50% 25 Gm/50 Ml Syringe IV PUSH PRN PRN Hypoglycemia Protocol Furosemide 80 mg 05/28/25 09:35 06/01/25 08:51 Furosemide 80 Mg Tablet PO 80 mg DAILY TITO Administration Glucose 15 gm 05/27/25 22:05 Glucose Oral Gel 15 Gm Of Glucse In 37.5 Gm Tube PO PRN PRN Hypoglycemia Protocol Heparin Sodium (Porcine) 5,000 units 05/31/25 21:00 06/01/25 08:50 Heparin Sodium 5,000 Units/Ml Vial SUB-Q 5,000 units Q12HR TITO Administration Dextrose 1,000 mls @ 100 mls/hr 05/27/25 22:05 Dextrose 5% 1,000 Ml IVPB PRN PRN Hypoglycemia Protocol Albumin Human 50 mls @ 999 mls/hr 05/29/25 06:50 Albutein IVPB 06/28/25 06:49 Q10M PRN HYPOTENSION Piperacillin Sod/Tazobactam 50 mls @ 100 mls/hr 05/31/25 15:00 06/01/25 09:50 Sod 2.25 gm/ Sodium Chloride IVPB 100 mls/hr Q6H TITO Administration Insulin Aspart 2 - 5 units 05/28/25 08:00 06/01/25 07:32 Insulin Aspart (*Bkc) 100 Units/Ml SUB-Q Not Given TIDWM TITO Protocol Insulin Aspart 1 - 2 units 05/28/25 21:00 05/31/25 20:37 Insulin Aspart (*Bkc) 100 Units/Ml SUB-Q Not Given HS TITO Protocol Insulin Aspart 10 units 05/31/25 09:00 06/01/25 08:50 Insulin Aspart (*Bkc) 100 Units/Ml SUB-Q 10 units TID TITO Administration Insulin Glargine 21 units 05/29/25 10:00 06/01/25 10:03 Insulin Glargine (*Bkc) 100 Units/Ml SUB-Q 21 units DAILY@1000 TITO Administration Lidocaine/Prilocaine 1 each 05/29/25 06:50 05/31/25 08:05 Lidocaine/Prilocaine Cream 2.5-2.5% Tube TOPICAL 1 each WITH DIALYSIS PRN Administration for dialysis Protocol Lisinopril 20 mg 05/28/25 09:35 06/01/25 08:51 Lisinopril 20 Mg Tablet PO 20 mg DAILY TITO Administration Tramadol HCl 25 mg 05/28/25 12:34 05/31/25 16:36 Tramadol Hcl (*Crx) 25 Mg Tablet PO 25 mg Q4H PRN Administration Pain Rated 4-6 Vancomycin HCl 1 each 05/27/25 18:48 Vancomycin For Hemodialysis IVPB PRN PRN Vancomycin Protocol Radiology Results: ITS Impressions Abdomen/Pelvis CT 05/27/25 17:56 IMPRESSION: Scrotal abscesses detailed above with cellulitis. Incidental findings above. Labs Labs: Laboratory Results - last 24 hr 05/31/25 05/31/25 05/31/25 12:03 12:36 16:55 WBC RBC Hgb Hct MCV MCH MCHC RDW Plt Count MPV Sodium Potassium Chloride Carbon Dioxide Anion Gap BUN Creatinine Estim Creat Clear Calc Estimated GFR Glucose POC Capillary Glucose 105 100 231 H Calcium Total Bilirubin AST ALT Alkaline Phosphatase Total Protein Albumin 05/31/25 06/01/25 06/01/25 20:12 06:08 07:28 WBC 10.3 H RBC 3.47 L Hgb 8.9 L Hct 29.7 L MCV 85.6 MCH 25.6 L MCHC 30.0 L RDW 15.4 H Plt Count 228 MPV 10.9 H Sodium 133 L Potassium 3.5 Chloride 94 L Carbon Dioxide 30 Anion Gap 9 BUN 43 H Creatinine 8.74 H Estim Creat Clear Calc 12 Estimated GFR 6 L Glucose 171 H POC Capillary Glucose 179 H 177 H Calcium 7.9 L Total Bilirubin 0.4 AST 24 ALT 14 Alkaline Phosphatase 72 Total Protein 6.9 Albumin 3.4 L Quality VTE Prophylaxis VTE prophylaxis: pharmacologic ordered
[2025-06-01 12:00] VITALS: BP 101/68; PULSE 77; RESP 14; TEMP 35.9; O2SAT 95
[2025-06-01] MEDS: INSULIN ASPART (*BKC) 100 UNITS/ML SUB-Q (12:56)
[2025-06-01 15:30] VITALS: BP 112/60; PULSE 77; RESP 16; TEMP 36.3; O2SAT 97
--- NOTE | 2025-06-01 16:12 | P.PNINF_ITS ---
Progress Note: A&P Assessment and Plan (1) Scrotal abscess: Code(s): N49.2 - Inflammatory disorders of scrotum Status: Acute (2) End stage renal disease: Code(s): N18.6 - End stage renal disease Status: Acute (3) Fever: Code(s): R50.9 - Fever, unspecified Status: Acute Plan # Scrotal cellulitis with abscess and status post I and D. Cultures pending. # Postprocedure persistent fever and leukocytosis. --Recurrence of fever yesterday evening but again improved throughout today and leukocytosis has resolved. #Diabetes and end-stage renal disease on hemodialysis. Plan: -- would prefer broader Gram-negative coverage than is being provided by Augmentin at this time and recommend changing to Zosyn adjusted for renal failure while awaiting culture results. -- okay to continue with vancomycin for now. Patient already with end-stage renal disease on hemodialysis and Anticipate a limited course of Zosyn and vancomycin which will be further adjusted based on cultures. --discussed with both patient and his who was at bedside. -- anticipate a 14-21 day course of appropriate antibiotics from I and D procedure. Ideally, should be able to transition to oral antibiotics to complete therapy but this will need to be based on culture results and continued response with fever. Patient was seen via video telehealth consultation with the assistance of staff. Chart, data, and patient independently reviewed. Patient was located at [facility] while I was located in my [place] office. Received verbal consent from patient. Subjective Date/time seen: 06/01/25 16:12 Interval history: 06/01/2025: Recurrent fever with T-max 101.6? 9:00 p.m. yesterday evening. Had only received a single dose of Zosyn prior to this fever. Since 4:00 a.m. temperature has improved. In addition white blood cell count has continued to decrease from 14.3 down to 10.3. Scrotal abscess cultures remain pending. Review of Systems Review of Systems: All systems reviewed & are unremarkable except as noted in HPI and below Exam Narrative: He is awake and alert and nontoxic in appearance. States scrotal pain has improved. No respiratory difficulty. No abdominal distention. Scrotal dressing intact. Patient and have been taught how to pack wound. Objective Data Vital Signs Vital Signs: Vital Signs - 24 hr 05/31/25 20:00 05/31/25 20:00 05/31/25 20:37 Temperature 101.3 F H 101.6 F H Pulse Rate 95 Respiratory Rate 20 Blood Pressure 125/62 Pulse Oximetry 97 Oxygen Delivery Room Air 05/31/25 22:17 06/01/25 00:00 06/01/25 03:44 Temperature 100.9 F H 99.9 F H 99.1 F Pulse Rate 90 84 Respiratory Rate 18 18 Blood Pressure 128/67 113/60 Pulse Oximetry 98 94 Oxygen Delivery 06/01/25 07:57 06/01/25 12:00 06/01/25 15:30 Temperature 97.9 F 96.7 F L 97.4 F L Pulse Rate 80 77 77 Respiratory Rate 16 14 16 Blood Pressure 125/72 101/68 112/60 Pulse Oximetry 97 95 97 Oxygen Delivery Intake/Output Intake/Output: Intake & Output 05/29/25 05/30/25 05/31/25 06/01/25 23:59 23:59 23:59 23:59 Intake Total 740 6401 867 4216 Output Total 3000 1500 Balance 740 -1790 -742 1166 Meds/Results Medications: Active Medications Generic Name Dose Route Start Last Admin Trade Name Freq PRN Reason Stop Dose Admin Acetaminophen 650 mg 05/31/25 21:55 06/01/25 03:07 Acetaminophen 325 Mg Tablet PO 650 mg Q4H PRN Administration Mild Pain (1-3) or Fever Atorvastatin Calcium 20 mg 05/28/25 09:35 06/01/25 08:51 Atorvastatin 20 Mg Tablet PO 20 mg DAILY TITO Administration Dextrose 12.5 gm 05/27/25 22:05 Dextrose 50% 25 Gm/50 Ml Syringe IV PUSH PRN PRN Hypoglycemia Protocol Furosemide 80 mg 05/28/25 09:35 06/01/25 08:51 Furosemide 80 Mg Tablet PO 80 mg DAILY TITO Administration Glucose 15 gm 05/27/25 22:05 Glucose Oral Gel 15 Gm Of Glucse In 37.5 Gm Tube PO PRN PRN Hypoglycemia Protocol Heparin Sodium (Porcine) 5,000 units 05/31/25 21:00 06/01/25 08:50 Heparin Sodium 5,000 Units/Ml Vial SUB-Q 5,000 units Q12HR TITO Administration Dextrose 1,000 mls @ 100 mls/hr 05/27/25 22:05 Dextrose 5% 1,000 Ml IVPB PRN PRN Hypoglycemia Protocol Albumin Human 50 mls @ 999 mls/hr 05/29/25 06:50 Albutein IVPB 06/28/25 06:49 Q10M PRN HYPOTENSION Piperacillin Sod/Tazobactam 50 mls @ 100 mls/hr 05/31/25 15:00 06/01/25 10:20 Sod 2.25 gm/ Sodium Chloride IVPB Infused Q6H TITO Infusion Insulin Aspart 2 - 5 units 05/28/25 08:00 06/01/25 12:56 Insulin Aspart (*Bkc) 100 Units/Ml SUB-Q 2 units TIDWM TITO Administration Protocol Insulin Aspart 1 - 2 units 05/28/25 21:00 05/31/25 20:37 Insulin Aspart (*Bkc) 100 Units/Ml SUB-Q Not Given HS TITO Protocol Insulin Aspart 10 units 05/31/25 09:00 06/01/25 12:55 Insulin Aspart (*Bkc) 100 Units/Ml SUB-Q 10 units TID TITO Administration Insulin Glargine 21 units 05/29/25 10:00 06/01/25 10:03 Insulin Glargine (*Bkc) 100 Units/Ml SUB-Q 21 units DAILY@1000 TITO Administration Lidocaine/Prilocaine 1 each 05/29/25 06:50 05/31/25 08:05 Lidocaine/Prilocaine Cream 2.5-2.5% Tube TOPICAL 1 each WITH DIALYSIS PRN Administration for dialysis Protocol Lisinopril 20 mg 05/28/25 09:35 06/01/25 08:51 Lisinopril 20 Mg Tablet PO 20 mg DAILY TITO Administration Tramadol HCl 25 mg 05/28/25 12:34 05/31/25 16:36 Tramadol Hcl (*Crx) 25 Mg Tablet PO 25 mg Q4H PRN Administration Pain Rated 4-6 Vancomycin HCl 1 each 05/27/25 18:48 Vancomycin For Hemodialysis IVPB PRN PRN Vancomycin Protocol Radiology Results: ITS Impressions Abdomen/Pelvis CT 05/27/25 17:56 IMPRESSION: Scrotal abscesses detailed above with cellulitis. Incidental findings above. Labs Labs: Laboratory Results - last 24 hr 05/31/25 05/31/25 06/01/25 16:55 20:12 06:08 WBC 10.3 H RBC 3.47 L Hgb 8.9 L Hct 29.7 L MCV 85.6 MCH 25.6 L MCHC 30.0 L RDW 15.4 H Plt Count 228 MPV 10.9 H Sodium 133 L Potassium 3.5 Chloride 94 L Carbon Dioxide 30 Anion Gap 9 BUN 43 H Creatinine 8.74 H Estim Creat Clear Calc 12 Estimated GFR 6 L Glucose 171 H POC Capillary Glucose 231 H 179 H Calcium 7.9 L Total Bilirubin 0.4 AST 24 ALT 14 Alkaline Phosphatase 72 Total Protein 6.9 Albumin 3.4 L 06/01/25 06/01/25 07:28 11:30 WBC RBC Hgb Hct MCV MCH MCHC RDW Plt Count MPV Sodium Potassium Chloride Carbon Dioxide Anion Gap BUN Creatinine Estim Creat Clear Calc Estimated GFR Glucose POC Capillary Glucose 177 H 233 H Calcium Total Bilirubin AST ALT Alkaline Phosphatase Total Protein Albumin
[2025-06-01 20:00] VITALS: BP 119/65; PULSE 74; RESP 18; TEMP 36.3; O2SAT 93
[2025-06-02] VITALS (22 sets, daily range): BP systolic 103–133; BP diastolic 51–75; PULSE 71–79; RESP 15–20; TEMP 35.9–37.2; O2SAT 95–100
[2025-06-02] MEDS: PIPERACILLIN/TAZOBACTAM SOD 2.25 GM in SODIUM CHLORIDE 0.9% IV 50 ML 100 ML IVPB ×3 (03:05→18:55)
[2025-06-02 05:17] LABS: Hematocrit 30.3 % (42.0-52.0); Hemoglobin 9.2 g/dL (14.0-18.0); Mean Corpuscular HGB Conc 30.4 g/dl (32-36); Mean Corpuscular Hemoglobin 25.8 pg (26-34); Mean Corpuscular Volume 85.1 fl (80-100); Platelet Count Result 259 k/mm3 (150-375); Red Blood Count 3.56 M/mm3 (4.6-6.20); White Blood Count 9.7 K/mm3 (4.5-10.0)
[2025-06-02 05:41] LABS: Alanine Aminotransferase 13 U/L (6-50); Albumin Level 3.4 g/dL (3.5-5.1); Alkaline Phosphatase 60 U/L (38-126); Anion Gap 11 mmol/L (4-12); Aspartate Amino Transferase 23 U/L (17-59); Bilirubin,Total 0.4 mg/dL (0.2-1.3); Blood Urea Nitrogen 50 mg/dL (9-20); Calcium 7.7 mg/dL (8.4-10.2); Carbon Dioxide 29 mmol/L (22-30); Chloride 95 mmol/L (98-107); Estimated CRCL calculation 10 ml/min; Estimated Glomerular Filt Rate 5; Glucose 166 mg/dL (65-110); Potassium 3.7 mmol/L (3.4-5.0); Sodium 135 mmol/L (137-145); Total Protein 7.0 g/dL (6.3-8.2)
--- NOTE | 2025-06-02 07:58 | P.PNIM_ITS ---
Progress Note: A&P Assessment and Plan (1) Hypertension: Qualifiers: Hypertension type: unspecified Qualified Code(s): I10 - Essential (primary) hypertension Code(s): I10 - Essential (primary) hypertension Status: Chronic (2) Type 2 diabetes mellitus: Qualifiers: Diabetes mellitus complication detail: with nephropathy Diabetes mellitus complication status: with kidney complications Diabetes mellitus correction insulin use: without correction use Qualified Code(s): E11.21 - Type 2 diabetes mellitus with diabetic nephropathy Code(s): E11.9 - Type 2 diabetes mellitus without complications Status: Chronic (3) End stage renal disease: Code(s): N18.6 - End stage renal disease Status: Acute (4) Scrotal abscess: Code(s): N49.2 - Inflammatory disorders of scrotum Status: Acute Plan 55-year-old male presented with worsening pain and swelling of his scrotal right side presented to [facility] on 05/27/2025. Ten days prior to admission he did have little area of induration on his scrotal sac. Received clindamycin by PCP. ER evaluation demonstrated WBC 15.8, serum creatinine 7.96, abdomen pelvis CT with contrast demonstrating scrotal abscesses largest on right side with cellulitis. Was started on Flagyl cefepime vancomycin, Urology was consulted. Status post I and D of scrotal abscess on 05/29/2025 by Urology. 1. Scrotal abscess: Status post I and D of scrotal abscess on 05/29/2025 Urology following Id consult appreciated Follow-up intraoperative culture, urine, blood culture Pain control Tylenol p.r.n. for fever Currently on vancomycin, Zosyn Monitor leukocytosis, improving MRSA swab negative 2. End-stage renal disease on dialysis: Nephrology following Dialysis as per Renal schedule 3. Diabetes mellitus: Blood glucose checked t.i.d. a.c. and HS Continue with sliding scale insulin Continue with Lantus, 8 units of mealtime insulin Adjust dose as needed 6. History of hypertension: Continue with lisinopril 7. Code status: Full 8. DVT prophylaxis: Heparin subcut 9. Disposition: Pending improvement/pending culture finalization Time Spent With Patient Time: 54 minutes Subjective Date/time seen: 06/02/25 07:58 Interval history: Feeling ok, pain controlled Had dialysis today 05/31 TMax 101.6. Afebrile overnight. Vanc trough was 22.1. On Zosyn Review of Systems Review of Systems: All systems reviewed & are unremarkable except as noted in HPI and below Exam Narrative: General: male in no acute distress HEENT: Normocephalic. Atraumatic. Sclera clear and anicteric. Chest: Lungs are clear to auscultation bilaterally. No wheezes or crackles. CV: Heart was regular rate and rhythm. Abd: Abdomen was soft. Nontender. Nondistended. Positive bowel sounds. : Wound packed with some yellow drainage Ext: No clubbing, cyanosis, or edema. DP pulses bilaterally. Neuro: Patient is alert. Speech is clear. Objective Data Vital Signs Vital Signs: Vital Signs - 24 hr 06/01/25 12:00 06/01/25 15:30 06/01/25 20:00 Temperature 96.7 F L 97.4 F L 97.4 F L Pulse Rate 77 77 74 Respiratory Rate 14 16 18 Blood Pressure 101/68 112/60 119/65 Pulse Oximetry 95 97 93 Oxygen Delivery 06/01/25 20:00 06/02/25 00:00 06/02/25 04:00 Temperature 97.6 F 97.6 F Pulse Rate 71 74 Respiratory Rate 20 18 Blood Pressure 119/63 128/68 Pulse Oximetry 95 95 Oxygen Delivery Room Air Intake/Output Intake/Output: Intake & Output 05/30/25 05/31/25 06/01/25 06/02/25 23:59 23:59 23:59 23:59 Intake Total 5061 567 7797 490 Output Total 3000 1500 Balance -1790 -742 1506 490 Meds/Results Medications: Active Medications Generic Name Dose Route Start Last Admin Trade Name Freq PRN Reason Stop Dose Admin Acetaminophen 650 mg 05/31/25 21:55 06/01/25 03:07 Acetaminophen 325 Mg Tablet PO 650 mg Q4H PRN Administration Mild Pain (1-3) or Fever Atorvastatin Calcium 20 mg 05/28/25 09:35 06/01/25 08:51 Atorvastatin 20 Mg Tablet PO 20 mg DAILY TITO Administration Dextrose 12.5 gm 05/27/25 22:05 Dextrose 50% 25 Gm/50 Ml Syringe IV PUSH PRN PRN Hypoglycemia Protocol Epoetin Jhonny-epbx 10,000 units 06/02/25 17:58 Epoetin Jhonny-Epbx 10,000 Units/Ml Vial IV PUSH 06/02/25 17:59 ONCE ONE Furosemide 80 mg 05/28/25 09:35 06/01/25 08:51 Furosemide 80 Mg Tablet PO 80 mg DAILY TITO Administration Glucose 15 gm 05/27/25 22:05 Glucose Oral Gel 15 Gm Of Glucse In 37.5 Gm Tube PO PRN PRN Hypoglycemia Protocol Heparin Sodium (Porcine) 5,000 units 05/31/25 21:00 06/01/25 20:35 Heparin Sodium 5,000 Units/Ml Vial SUB-Q 5,000 units Q12HR TITO Administration Dextrose 1,000 mls @ 100 mls/hr 05/27/25 22:05 Dextrose 5% 1,000 Ml IVPB PRN PRN Hypoglycemia Protocol Albumin Human 50 mls @ 999 mls/hr 05/29/25 06:50 Albutein IVPB 06/28/25 06:49 Q10M PRN HYPOTENSION Piperacillin Sod/Tazobactam 50 mls @ 100 mls/hr 05/31/25 15:00 06/02/25 03:05 Sod 2.25 gm/ Sodium Chloride IVPB 100 mls/hr Q6H TITO Administration Vancomycin HCl 750 mg in 250 mls @ 250 mls/hr 06/02/25 13:00 Vancomycin 750 Mg/Ns 250 Ml IVPB 06/02/25 13:59 ONCE ONE Insulin Aspart 2 - 5 units 05/28/25 08:00 06/02/25 07:52 Insulin Aspart (*Bkc) 100 Units/Ml SUB-Q Not Given TIDWM TITO Protocol Insulin Aspart 1 - 2 units 05/28/25 21:00 06/01/25 23:39 Insulin Aspart (*Bkc) 100 Units/Ml SUB-Q Not Given HS TITO Protocol Insulin Aspart 10 units 05/31/25 09:00 06/01/25 17:10 Insulin Aspart (*Bkc) 100 Units/Ml SUB-Q 10 units TID TITO Administration Insulin Glargine 21 units 05/29/25 10:00 06/01/25 10:03 Insulin Glargine (*Bkc) 100 Units/Ml SUB-Q 21 units DAILY@1000 TITO Administration Lidocaine/Prilocaine 1 each 05/29/25 06:50 05/31/25 08:05 Lidocaine/Prilocaine Cream 2.5-2.5% Tube TOPICAL 1 each WITH DIALYSIS PRN Administration for dialysis Protocol Lisinopril 20 mg 05/28/25 09:35 06/01/25 08:51 Lisinopril 20 Mg Tablet PO 20 mg DAILY TITO Administration Tramadol HCl 25 mg 05/28/25 12:34 05/31/25 16:36 Tramadol Hcl (*Crx) 25 Mg Tablet PO 25 mg Q4H PRN Administration Pain Rated 4-6 Vancomycin HCl 1 each 05/27/25 18:48 Vancomycin For Hemodialysis IVPB PRN PRN Vancomycin Protocol Radiology Results: ITS Impressions Abdomen/Pelvis CT 05/27/25 17:56 IMPRESSION: Scrotal abscesses detailed above with cellulitis. Incidental findings above. Labs Labs: Laboratory Results - last 24 hr 06/01/25 06/01/25 06/01/25 11:30 17:07 21:24 WBC RBC Hgb Hct MCV MCH MCHC RDW Plt Count MPV Sodium Potassium Chloride Carbon Dioxide Anion Gap BUN Creatinine Estim Creat Clear Calc Estimated GFR Glucose POC Capillary Glucose 233 H 145 H 171 H Calcium Total Bilirubin AST ALT Alkaline Phosphatase Total Protein Albumin Random Vancomycin 06/02/25 06/02/25 06/02/25 04:51 05:11 07:38 WBC 9.7 RBC 3.56 L Hgb 9.2 L Hct 30.3 L MCV 85.1 MCH 25.8 L MCHC 30.4 L RDW 15.2 H Plt Count 259 MPV 9.9 Sodium 135 L Potassium 3.7 Chloride 95 L Carbon Dioxide 29 Anion Gap 11 BUN 50 H Creatinine 10.95 H Estim Creat Clear Calc 10 Estimated GFR 5 L Glucose 166 H POC Capillary Glucose 190 H 168 H Calcium 7.7 L Total Bilirubin 0.4 AST 23 ALT 13 Alkaline Phosphatase 60 Total Protein 7.0 Albumin 3.4 L Random Vancomycin 22.1 H Quality VTE Prophylaxis VTE prophylaxis: pharmacologic ordered Hospitalist MIPS Advance Care Plan I have confirmed that the patient's Advanced Care Plan is present, code status is documented, or surrogate decision maker is listed in patient medical record.: Yes Medication Reconciliation I have utilized all available resources to obtain, update and review the patients current medications (includes all prescriptions, OTC, herbals, cannabis, and nutritional supplements).: Yes
[2025-06-02] MEDS: INSULIN ASPART (*BKC) 100 UNITS/ML 10 UNITS SUB-Q ×3 (08:33→17:54)
[2025-06-02] MEDS: INSULIN GLARGINE (*BKC) 100 UNITS/ML 21 UNITS SUB-Q (10:33)
--- NOTE | 2025-06-02 12:35 | P.PNNP_ITS ---
Progress Note: A&P Assessment and Plan (1) End stage renal disease: Code(s): N18.6 - End stage renal disease Status: Acute Assessment and Plan: * HD underway * continue outpatient HD schedule of //Wednesday * volume status looks okay * electrolytes doing well (2) Scrotal abscess: Code(s): N49.2 - Inflammatory disorders of scrotum Status: Acute Assessment and Plan: * as noted by clinical history and imaging: * worsening pain and swelling of his scrotal right side * 10 days prior to admission he had an area of induration on his scrotal sac with a bit of drainage * given clindamycin by PCP but symptoms continued to worsen * CT of abdomen/pelvis CT: scrotum with rim-enhancing abscesses the largest on the right side measuring 2 x 2.2 cm with induration of the remaining soft tissues but no gross air within the soft tissues themselves * Urology following * s/p incision and drainage on 05/29 * local wound care * follow culture data * Infectious Disease following * no fevers. White cell count is okay. * on Zosyn and vancomycin. * He still has some residual renal function. I wonder if we could switch either the Zosyn or the vancomycin so he does not have they combination which can be nephrotoxic. (3) Anemia: Qualifiers: Anemia type: unspecified type Qualified Code(s): D64.9 - Anemia, unspecified Code(s): D64.9 - Anemia, unspecified Status: Chronic Assessment and Plan: * due to ESRD * likely worsened by acute illness/infection * Epogen with HD * Hemoglobin in the high 80s and low 90s (4) Hypertension: Qualifiers: Hypertension type: unspecified Qualified Code(s): I10 - Essential (primary) hypertension Code(s): I10 - Essential (primary) hypertension Status: Chronic Assessment and Plan: * reasonable control * follow trend of hemodynamics (5) Type 2 diabetes mellitus: Qualifiers: Diabetes mellitus assistant terminal manager insulin use: without assistant terminal manager use Diabetes mellitus complication status: with kidney complications Diabetes mellitus complication detail: with nephropathy Qualified Code(s): E11.21 - Type 2 diabetes mellitus with diabetic nephropathy Code(s): E11.9 - Type 2 diabetes mellitus without complications Status: Chronic Assessment and Plan: * follow accu-cheks * glycemic control per hospitalist Will continue to follow. Subjective Date/time seen: 06/02/25 12:35 Interval history: patient feels okay today. Scrotal mass seems to be decreasing. He is able to walk in the halls with a normal gait now. He is on dialysis and tolerating it well. He was seen at 9:45 a.m.. Exam Narrative: General: WD/WN male in NAD Heart: normal S1 and S2; no rub Or gallop Lungs: clear to auscultation Abdomen: soft, nontender, nondistended, positive bowel sounds Extremities: no cyanosis or clubbing; no edema Skin: no nodules or rash Objective Data Vital Signs Vital Signs: Vital Signs - 24 hr 06/01/25 15:30 06/01/25 20:00 06/01/25 20:00 Temperature 97.4 F L 97.4 F L Pulse Rate 77 74 Respiratory Rate 16 18 Blood Pressure 112/60 119/65 Pulse Oximetry 97 93 Oxygen Delivery Room Air Oxygen Flow Rate Fraction of Inspired Oxygen 06/02/25 00:00 06/02/25 04:00 06/02/25 09:36 Temperature 97.6 F 97.6 F Pulse Rate 71 74 Respiratory Rate 20 18 Blood Pressure 119/63 128/68 Pulse Oximetry 95 95 Oxygen Delivery Oxygen Flow Rate 0 Fraction of Inspired Oxygen 0 06/02/25 09:48 Temperature Pulse Rate 73 Respiratory Rate Blood Pressure 133/75 Pulse Oximetry Oxygen Delivery Oxygen Flow Rate Fraction of Inspired Oxygen Intake/Output Intake/Output: Intake & Output 05/30/25 05/31/25 06/01/25 06/02/25 23:59 23:59 23:59 23:59 Intake Total 9002 808 1289 730 Output Total 3000 1500 Balance -9621 -901 1506 730 Meds/Results Medications: Active Medications Generic Name Dose Route Start Last Admin Trade Name Freq PRN Reason Stop Dose Admin Acetaminophen 650 mg 05/31/25 21:55 06/01/25 03:07 Acetaminophen 325 Mg Tablet PO 650 mg Q4H PRN Administration Mild Pain (1-3) or Fever Atorvastatin Calcium 20 mg 05/28/25 09:35 06/01/25 08:51 Atorvastatin 20 Mg Tablet PO 20 mg DAILY TITO Administration Dextrose 12.5 gm 05/27/25 22:05 Dextrose 50% 25 Gm/50 Ml Syringe IV PUSH PRN PRN Hypoglycemia Protocol Epoetin Jhonny-epbx 10,000 units 06/02/25 17:58 Epoetin Jhonny-Epbx 10,000 Units/Ml Vial IV PUSH 06/02/25 17:59 ONCE ONE Furosemide 80 mg 05/28/25 09:35 06/01/25 08:51 Furosemide 80 Mg Tablet PO 80 mg DAILY TITO Administration Glucose 15 gm 05/27/25 22:05 Glucose Oral Gel 15 Gm Of Glucse In 37.5 Gm Tube PO PRN PRN Hypoglycemia Protocol Heparin Sodium (Porcine) 5,000 units 05/31/25 21:00 06/02/25 08:36 Heparin Sodium 5,000 Units/Ml Vial SUB-Q 5,000 units Q12HR TITO Administration Dextrose 1,000 mls @ 100 mls/hr 05/27/25 22:05 Dextrose 5% 1,000 Ml IVPB PRN PRN Hypoglycemia Protocol Albumin Human 50 mls @ 999 mls/hr 05/29/25 06:50 Albutein IVPB 06/28/25 06:49 Q10M PRN HYPOTENSION Vancomycin HCl 750 mg in 250 mls @ 250 mls/hr 06/02/25 13:00 Vancomycin 750 Mg/Ns 250 Ml IVPB 06/02/25 13:59 ONCE ONE Piperacillin Sod/Tazobactam 50 mls @ 100 mls/hr 06/02/25 12:00 Sod 2.25 gm/ Sodium Chloride IVPB Q6H TITO Insulin Aspart 2 - 5 units 05/28/25 08:00 06/02/25 12:18 Insulin Aspart (*Bkc) 100 Units/Ml SUB-Q Not Given TIDWM TITO Protocol Insulin Aspart 1 - 2 units 05/28/25 21:00 06/01/25 23:39 Insulin Aspart (*Bkc) 100 Units/Ml SUB-Q Not Given HS TITO Protocol Insulin Aspart 10 units 05/31/25 09:00 06/02/25 12:19 Insulin Aspart (*Bkc) 100 Units/Ml SUB-Q 10 units TID TITO Administration Insulin Glargine 21 units 05/29/25 10:00 06/02/25 10:33 Insulin Glargine (*Bkc) 100 Units/Ml SUB-Q 21 units DAILY@1000 TITO Administration Lidocaine/Prilocaine 1 each 05/29/25 06:50 05/31/25 08:05 Lidocaine/Prilocaine Cream 2.5-2.5% Tube TOPICAL 1 each WITH DIALYSIS PRN Administration for dialysis Protocol Lisinopril 20 mg 05/28/25 09:35 06/01/25 08:51 Lisinopril 20 Mg Tablet PO 20 mg DAILY TITO Administration Tramadol HCl 25 mg 05/28/25 12:34 05/31/25 16:36 Tramadol Hcl (*Crx) 25 Mg Tablet PO 25 mg Q4H PRN Administration Pain Rated 4-6 Vancomycin HCl 1 each 05/27/25 18:48 Vancomycin For Hemodialysis IVPB PRN PRN Vancomycin Protocol Radiology Results: ITS Impressions Abdomen/Pelvis CT 05/27/25 17:56 IMPRESSION: Scrotal abscesses detailed above with cellulitis. Incidental findings above. Labs Labs: Laboratory Results - last 24 hr 06/01/25 06/01/25 06/02/25 17:07 21:24 04:51 WBC RBC Hgb Hct MCV MCH MCHC RDW Plt Count MPV Sodium Potassium Chloride Carbon Dioxide Anion Gap BUN Creatinine Estim Creat Clear Calc Estimated GFR Glucose POC Capillary Glucose 145 H 171 H 190 H Calcium Total Bilirubin AST ALT Alkaline Phosphatase Total Protein Albumin Random Vancomycin 06/02/25 06/02/25 06/02/25 05:11 07:38 12:18 WBC 9.7 RBC 3.56 L Hgb 9.2 L Hct 30.3 L MCV 85.1 MCH 25.8 L MCHC 30.4 L RDW 15.2 H Plt Count 259 MPV 9.9 Sodium 135 L Potassium 3.7 Chloride 95 L Carbon Dioxide 29 Anion Gap 11 BUN 50 H Creatinine 10.95 H Estim Creat Clear Calc 10 Estimated GFR 5 L Glucose 166 H POC Capillary Glucose 168 H 126 H Calcium 7.7 L Total Bilirubin 0.4 AST 23 ALT 13 Alkaline Phosphatase 60 Total Protein 7.0 Albumin 3.4 L Random Vancomycin 22.1 H
[2025-06-02] MEDS: SODIUM CHLORIDE 0.9% IV 1,000 ML 999 ML IV CONT (13:47)
[2025-06-02] MEDS: EPOETIN ALFA-EPBX 10,000 UNITS/ML VIAL 20000 UNITS IV PUSH (13:47)
--- NOTE | 2025-06-02 13:49 | PC.NURSE ---
Returned to room from Dialysis per hospital bed.
[2025-06-02] MEDS: ATORVASTATIN 20 MG TABLET PO (13:58)
[2025-06-02] MEDS: FUROSEMIDE 80 MG TABLET PO (13:58)
[2025-06-02] MEDS: VANCOMYCIN 750 MG/NS 250 ML 750 MG/250 ML BAG 250 MG IVPB (15:32)
[2025-06-03] VITALS (7 sets, daily range): BP systolic 110–136; BP diastolic 47–76; PULSE 72–78; RESP 17–20; TEMP 35.9–37.3; O2SAT 95–98
[2025-06-03] MEDS: PIPERACILLIN/TAZOBACTAM SOD 2.25 GM in SODIUM CHLORIDE 0.9% IV 50 ML 100 ML IVPB ×5 (00:04→23:55)
[2025-06-03 02:06] LABS: Toxigenic C. Diff NEGATIVE (NEGATIVE)
[2025-06-03 05:32] LABS: Hematocrit 30.5 % (42.0-52.0); Hemoglobin 9.2 g/dL (14.0-18.0); Mean Corpuscular HGB Conc 30.2 g/dl (32-36); Mean Corpuscular Hemoglobin 25.9 pg (26-34); Mean Corpuscular Volume 85.9 fl (80-100); Platelet Count Result 287 k/mm3 (150-375); Red Blood Count 3.55 M/mm3 (4.6-6.20); White Blood Count 9.0 K/mm3 (4.5-10.0)
[2025-06-03 05:53] LABS: Albumin Level 3.3 g/dL (3.5-5.1); Anion Gap 9 mmol/L (4-12); Blood Urea Nitrogen 32 mg/dL (9-20); Calcium 8.2 mg/dL (8.4-10.2); Carbon Dioxide 29 mmol/L (22-30); Chloride 99 mmol/L (98-107); Estimated CRCL calculation 13 ml/min; Estimated Glomerular Filt Rate 7; Glucose 214 mg/dL (65-110); Potassium 3.9 mmol/L (3.4-5.0); Sodium 137 mmol/L (137-145)
[2025-06-03] MEDS: ATORVASTATIN 20 MG TABLET PO (08:00)
[2025-06-03] MEDS: INSULIN ASPART (*BKC) 100 UNITS/ML 10 UNITS SUB-Q ×2 (08:01→11:39)
[2025-06-03] MEDS: INSULIN ASPART (*BKC) 100 UNITS/ML SUB-Q ×2 (08:01→11:39)
[2025-06-03] MEDS: FUROSEMIDE 80 MG TABLET PO (08:05)
[2025-06-03] MEDS: INSULIN GLARGINE (*BKC) 100 UNITS/ML 21 UNITS SUB-Q (09:35)
--- NOTE | 2025-06-03 11:17 | P.PNNP_ITS ---
Progress Note: A&P Assessment and Plan (1) End stage renal disease: Code(s): N18.6 - End stage renal disease Status: Acute Assessment and Plan: * HD due on Wednesday * continue outpatient HD schedule of //Wednesday * volume status looks okay * electrolytes doing well (2) Scrotal abscess: Code(s): N49.2 - Inflammatory disorders of scrotum Status: Acute Assessment and Plan: * as noted by clinical history and imaging: * worsening pain and swelling of his scrotal right side * 10 days prior to admission he had an area of induration on his scrotal sac with a bit of drainage * given clindamycin by PCP but symptoms continued to worsen * CT of abdomen/pelvis CT: scrotum with rim-enhancing abscesses the largest on the right side measuring 2 x 2.2 cm with induration of the remaining soft tissues but no gross air within the soft tissues themselves * Urology following * s/p incision and drainage on 05/29 * local wound care * follow culture data * Infectious Disease following * no fevers. White cell count is okay. * on Zosyn and vancomycin. * He still has some residual renal function. I wonder if we could switch either the Zosyn or the vancomycin so he does not have they combination which can be nephrotoxic. (3) Anemia: Qualifiers: Anemia type: unspecified type Qualified Code(s): D64.9 - Anemia, unspecified Code(s): D64.9 - Anemia, unspecified Status: Chronic Assessment and Plan: * due to ESRD * likely worsened by acute illness/infection * Epogen with HD * Hemoglobin in the high 80s and low 90s (4) Hypertension: Qualifiers: Hypertension type: unspecified Qualified Code(s): I10 - Essential (primary) hypertension Code(s): I10 - Essential (primary) hypertension Status: Chronic Assessment and Plan: * systolic is doing very well between 100s and 130s. * follow trend of hemodynamics (5) Type 2 diabetes mellitus: Qualifiers: Diabetes mellitus penitentiary insulin use: without penitentiary use Diabetes mellitus complication status: with kidney complications Diabetes mellitus complication detail: with nephropathy Qualified Code(s): E11.21 - Type 2 diabetes mellitus with diabetic nephropathy Code(s): E11.9 - Type 2 diabetes mellitus without complications Status: Chronic Assessment and Plan: * follow accu-cheks * glycemic control per hospitalist Will continue to follow. Subjective Date/time seen: 06/03/25 11:17 Interval history: Patient is feeling good today. Hoping to go home soon. His has been trained on how to change his packing. Eating well. No chest pain or shortness of breath Exam Narrative: General: WD/WN male in NAD Heart: normal S1 and S2; no rub Or gallop Lungs: clear bilaterally Abdomen: soft, nontender, nondistended, positive bowel sounds Extremities: no edema Skin: no nodule Objective Data Vital Signs Vital Signs: Vital Signs - 24 hr 06/02/25 11:30 06/02/25 11:45 06/02/25 12:00 Temperature Pulse Rate 71 71 72 Respiratory Rate Blood Pressure 124/67 131/67 121/64 Pulse Oximetry Oxygen Delivery Fraction of Inspired Oxygen 06/02/25 12:15 06/02/25 12:30 06/02/25 12:45 Temperature Pulse Rate 71 72 71 Respiratory Rate Blood Pressure 108/63 126/63 106/60 Pulse Oximetry Oxygen Delivery Fraction of Inspired Oxygen 06/02/25 13:00 06/02/25 13:15 06/02/25 13:25 Temperature Pulse Rate 71 72 73 Respiratory Rate Blood Pressure 122/63 115/69 108/62 Pulse Oximetry Oxygen Delivery Fraction of Inspired Oxygen 06/02/25 13:33 06/02/25 14:21 06/02/25 20:00 Temperature 98.6 F 96.6 F L 98.9 F Pulse Rate 74 74 79 Respiratory Rate 15 18 18 Blood Pressure 117/68 103/51 L 113/59 L Pulse Oximetry 100 96 98 Oxygen Delivery Fraction of Inspired Oxygen 06/02/25 20:00 06/03/25 00:00 06/03/25 04:00 Temperature 97.7 F 98.4 F Pulse Rate 75 72 Respiratory Rate 20 18 Blood Pressure 110/74 131/75 Pulse Oximetry 98 96 Oxygen Delivery Room Air Fraction of Inspired Oxygen 0 06/03/25 07:34 06/03/25 08:00 Temperature 96.7 F L Pulse Rate 73 Respiratory Rate 18 Blood Pressure 116/63 Pulse Oximetry 98 98 Oxygen Delivery Room Air Fraction of Inspired Oxygen Intake/Output Intake/Output: Intake & Output 05/31/25 06/01/25 06/02/25 06/03/25 23:59 23:59 23:59 23:59 Intake Total 758 1506 1840 218 Output Total 1500 2500 Balance -742 1506 -660 218 Meds/Results Medications: Active Medications Generic Name Dose Route Start Last Admin Trade Name Freq PRN Reason Stop Dose Admin Acetaminophen 650 mg 05/31/25 21:55 06/01/25 03:07 Acetaminophen 325 Mg Tablet PO 650 mg Q4H PRN Administration Mild Pain (1-3) or Fever Atorvastatin Calcium 20 mg 05/28/25 09:35 06/03/25 08:00 Atorvastatin 20 Mg Tablet PO 20 mg DAILY TITO Administration Dextrose 12.5 gm 05/27/25 22:05 Dextrose 50% 25 Gm/50 Ml Syringe IV PUSH PRN PRN Hypoglycemia Protocol Furosemide 80 mg 05/28/25 09:35 06/03/25 08:05 Furosemide 80 Mg Tablet PO 80 mg DAILY TITO Administration Glucose 15 gm 05/27/25 22:05 Glucose Oral Gel 15 Gm Of Glucse In 37.5 Gm Tube PO PRN PRN Hypoglycemia Protocol Heparin Sodium (Porcine) 5,000 units 05/31/25 21:00 06/03/25 08:01 Heparin Sodium 5,000 Units/Ml Vial SUB-Q 5,000 units Q12HR TITO Administration Dextrose 1,000 mls @ 100 mls/hr 05/27/25 22:05 Dextrose 5% 1,000 Ml IVPB PRN PRN Hypoglycemia Protocol Albumin Human 50 mls @ 999 mls/hr 05/29/25 06:50 Albutein IVPB 06/28/25 06:49 Q10M PRN HYPOTENSION Piperacillin Sod/Tazobactam 50 mls @ 100 mls/hr 06/02/25 12:00 06/03/25 05:45 Sod 2.25 gm/ Sodium Chloride IVPB Infused Q6H TITO Infusion Insulin Aspart 2 - 5 units 05/28/25 08:00 06/03/25 08:01 Insulin Aspart (*Bkc) 100 Units/Ml SUB-Q 2 units TIDWM TITO Administration Protocol Insulin Aspart 1 - 2 units 05/28/25 21:00 06/02/25 21:00 Insulin Aspart (*Bkc) 100 Units/Ml SUB-Q Not Given HS TITO Protocol Insulin Aspart 10 units 05/31/25 09:00 06/03/25 08:01 Insulin Aspart (*Bkc) 100 Units/Ml SUB-Q 10 units TID TITO Administration Insulin Glargine 21 units 05/29/25 10:00 06/03/25 09:35 Insulin Glargine (*Bkc) 100 Units/Ml SUB-Q 21 units DAILY@1000 TITO Administration Lidocaine/Prilocaine 1 each 05/29/25 06:50 05/31/25 08:05 Lidocaine/Prilocaine Cream 2.5-2.5% Tube TOPICAL 1 each WITH DIALYSIS PRN Administration for dialysis Protocol Lisinopril 20 mg 05/28/25 09:35 06/03/25 08:01 Lisinopril 20 Mg Tablet PO 20 mg DAILY TITO Administration Tramadol HCl 25 mg 05/28/25 12:34 05/31/25 16:36 Tramadol Hcl (*Crx) 25 Mg Tablet PO 25 mg Q4H PRN Administration Pain Rated 4-6 Vancomycin HCl 1 each 05/27/25 18:48 Vancomycin For Hemodialysis IVPB PRN PRN Vancomycin Protocol Radiology Results: ITS Impressions Abdomen/Pelvis CT 05/27/25 17:56 IMPRESSION: Scrotal abscesses detailed above with cellulitis. Incidental findings above. Labs Labs: Laboratory Results - last 24 hr 06/02/25 06/02/25 06/02/25 12:18 16:41 19:55 WBC RBC Hgb Hct MCV MCH MCHC RDW Plt Count MPV Sodium Potassium Chloride Carbon Dioxide Anion Gap BUN Creatinine Estim Creat Clear Calc Estimated GFR Glucose POC Capillary Glucose 126 H 173 H 200 H Calcium Phosphorus Albumin C. difficile (PCR) 06/03/25 06/03/25 06/03/25 01:09 04:59 07:31 WBC 9.0 RBC 3.55 L Hgb 9.2 L Hct 30.5 L MCV 85.9 MCH 25.9 L MCHC 30.2 L RDW 15.2 H Plt Count 287 MPV 10.6 H Sodium 137 Potassium 3.9 Chloride 99 Carbon Dioxide 29 Anion Gap 9 BUN 32 H D Creatinine 8.38 H Estim Creat Clear Calc 13 Estimated GFR 7 L Glucose 214 H POC Capillary Glucose 224 H Calcium 8.2 L Phosphorus 4.9 H Albumin 3.3 L C. difficile (PCR) Negative
--- NOTE | 2025-06-03 11:40 | PM.IMPN ---
Progress Note: A&P Assessment and Plan (1) Hypertension: Qualifiers: Hypertension type: unspecified Qualified Code(s): I10 - Essential (primary) hypertension Code(s): I10 - Essential (primary) hypertension Status: Chronic (2) Type 2 diabetes mellitus: Qualifiers: Diabetes mellitus complication detail: with nephropathy Diabetes mellitus complication status: with kidney complications Diabetes mellitus custodial insulin use: without custodial use Qualified Code(s): E11.21 - Type 2 diabetes mellitus with diabetic nephropathy Code(s): E11.9 - Type 2 diabetes mellitus without complications Status: Chronic (3) End stage renal disease: Code(s): N18.6 - End stage renal disease Status: Acute (4) Scrotal abscess: Code(s): N49.2 - Inflammatory disorders of scrotum Status: Acute Plan 55-year-old male presented with worsening pain and swelling of his scrotal right side presented to [facility] on 05/27/2025. Ten days prior to admission he did have little area of induration on his scrotal sac. Received clindamycin by PCP. ER evaluation demonstrated WBC 15.8, serum creatinine 7.96, abdomen pelvis CT with contrast demonstrating scrotal abscesses largest on right side with cellulitis. Was started on Flagyl cefepime vancomycin, Urology was consulted. Status post I and D of scrotal abscess on 05/29/2025 by Urology. Now on Zosyn. ID following. Cultures are negative. Reports diarrhea c-diff negative. 1. Scrotal abscess: Status post I and D of scrotal abscess on 05/29/2025 Urology following Id consult appreciated Follow-up intraoperative culture, urine, blood culture Pain control Tylenol p.r.n. for fever Currently on vancomycin. Stopped Zosyn Monitor leukocytosis, improving MRSA swab negative Blood culture 05/27 negative Follow CBC, ESR, CRP in AM 2. End-stage renal disease on dialysis: Nephrology following Dialysis as per Renal schedule Check post void bladder scan. Bladder was distended on CT Monitor urine output Enlarged Prostate Noted on CT --Bladder scan post void --Check PSA in AM 3. Diabetes mellitus: Home meds: Lantus 25units daily, Aspart 10 TID HgbA1c 12.1 Blood glucose checked t.i.d. a.c. and HS Continue with sliding scale insulin Continue with Lantus 21 units daily Lispro 8<10<12 units TID with meals n Adjust dose as needed 6. History of hypertension: Continue with lisinopril 7. Diarrhea: Stool for c-diff negative Start imodium 7. Code status: Full 8. DVT prophylaxis: Heparin subq 9. Disposition: Pending improvement/pending culture finalization Time Spent With Patient Time: 57 minutes Subjective Date/time seen: 06/03/25 11:40 Interval history: VSS. No fevers overnight Spoke with ID and dc'd IV Vancomycin. Cultures are still no growth His has been trained on how to change his packing. Eating well. No chest pain or shortness of breath Review of Systems Review of Systems: All systems reviewed & are unremarkable except as noted in HPI and below Exam Narrative: General - Awake and alert. No acute distress Eyes - PERRLA, EOM intact ENT - No thrush, No erythema Neck - No noticeable or palpable swelling Lymph Nodes - No lymphadenopathy Cardiovascular - RRR no m/r/g, no JVD Lungs: Clear to auscultation, No wheezing, use of accessory muscles, no crackles Skin - Skin warm and dry, no rashes. Wound packed with yellow drainage Abdomen - Normal bowel sounds, abdomen soft and nontender Extremities - No edema, cyanosis or clubbing Musculoskeletal - 5/5 strength, normal range of motion, no swollen or erythematous joints. Neurological ? Alert and oriented x 3, CN 2-12 grossly intact. Psych: Normal mood and affect Objective Data Vital Signs Vital Signs: Vital Signs - 24 hr 06/02/25 11:45 06/02/25 12:00 06/02/25 12:15 Temperature Pulse Rate 71 72 71 Respiratory Rate Blood Pressure 131/67 121/64 108/63 Pulse Oximetry Oxygen Delivery Fraction of Inspired Oxygen 06/02/25 12:30 06/02/25 12:45 06/02/25 13:00 Temperature Pulse Rate 72 71 71 Respiratory Rate Blood Pressure 126/63 106/60 122/63 Pulse Oximetry Oxygen Delivery Fraction of Inspired Oxygen 06/02/25 13:15 06/02/25 13:25 06/02/25 13:33 Temperature 98.6 F Pulse Rate 72 73 74 Respiratory Rate 15 Blood Pressure 115/69 108/62 117/68 Pulse Oximetry 100 Oxygen Delivery Fraction of Inspired Oxygen 06/02/25 14:21 06/02/25 20:00 06/02/25 20:00 Temperature 96.6 F L 98.9 F Pulse Rate 74 79 Respiratory Rate 18 18 Blood Pressure 103/51 L 113/59 L Pulse Oximetry 96 98 Oxygen Delivery Room Air Fraction of Inspired Oxygen 0 06/03/25 00:00 06/03/25 04:00 06/03/25 07:34 Temperature 97.7 F 98.4 F 96.7 F L Pulse Rate 75 72 73 Respiratory Rate 20 18 18 Blood Pressure 110/74 131/75 116/63 Pulse Oximetry 98 96 98 Oxygen Delivery Fraction of Inspired Oxygen 06/03/25 08:00 Temperature Pulse Rate Respiratory Rate Blood Pressure Pulse Oximetry 98 Oxygen Delivery Room Air Fraction of Inspired Oxygen Intake/Output Intake/Output: Intake & Output 05/31/25 06/01/25 06/02/25 06/03/25 23:59 23:59 23:59 23:59 Intake Total 758 1506 1840 218 Output Total 1500 2500 Balance -742 1506 -660 218 Meds/Results Medications: Active Medications Generic Name Dose Route Start Last Admin Trade Name Freq PRN Reason Stop Dose Admin Acetaminophen 650 mg 05/31/25 21:55 06/01/25 03:07 Acetaminophen 325 Mg Tablet PO 650 mg Q4H PRN Administration Mild Pain (1-3) or Fever Atorvastatin Calcium 20 mg 05/28/25 09:35 06/03/25 08:00 Atorvastatin 20 Mg Tablet PO 20 mg DAILY TITO Administration Dextrose 12.5 gm 05/27/25 22:05 Dextrose 50% 25 Gm/50 Ml Syringe IV PUSH PRN PRN Hypoglycemia Protocol Furosemide 80 mg 05/28/25 09:35 06/03/25 08:05 Furosemide 80 Mg Tablet PO 80 mg DAILY TITO Administration Glucose 15 gm 05/27/25 22:05 Glucose Oral Gel 15 Gm Of Glucse In 37.5 Gm Tube PO PRN PRN Hypoglycemia Protocol Heparin Sodium (Porcine) 5,000 units 05/31/25 21:00 06/03/25 08:01 Heparin Sodium 5,000 Units/Ml Vial SUB-Q 5,000 units Q12HR TITO Administration Dextrose 1,000 mls @ 100 mls/hr 05/27/25 22:05 Dextrose 5% 1,000 Ml IVPB PRN PRN Hypoglycemia Protocol Albumin Human 50 mls @ 999 mls/hr 05/29/25 06:50 Albutein IVPB 06/28/25 06:49 Q10M PRN HYPOTENSION Piperacillin Sod/Tazobactam 50 mls @ 100 mls/hr 06/02/25 12:00 06/03/25 11:36 Sod 2.25 gm/ Sodium Chloride IVPB 100 mls/hr Q6H TITO Administration Insulin Aspart 2 - 5 units 05/28/25 08:00 06/03/25 11:39 Insulin Aspart (*Bkc) 100 Units/Ml SUB-Q 2 units TIDWM TITO Administration Protocol Insulin Aspart 1 - 2 units 05/28/25 21:00 06/02/25 21:00 Insulin Aspart (*Bkc) 100 Units/Ml SUB-Q Not Given HS TITO Protocol Insulin Aspart 10 units 05/31/25 09:00 06/03/25 11:39 Insulin Aspart (*Bkc) 100 Units/Ml SUB-Q 10 units TID TITO Administration Insulin Glargine 21 units 05/29/25 10:00 06/03/25 09:35 Insulin Glargine (*Bkc) 100 Units/Ml SUB-Q 21 units DAILY@1000 TITO Administration Lidocaine/Prilocaine 1 each 05/29/25 06:50 05/31/25 08:05 Lidocaine/Prilocaine Cream 2.5-2.5% Tube TOPICAL 1 each WITH DIALYSIS PRN Administration for dialysis Protocol Lisinopril 20 mg 05/28/25 09:35 06/03/25 08:01 Lisinopril 20 Mg Tablet PO 20 mg DAILY TITO Administration Tramadol HCl 25 mg 05/28/25 12:34 05/31/25 16:36 Tramadol Hcl (*Crx) 25 Mg Tablet PO 25 mg Q4H PRN Administration Pain Rated 4-6 Radiology Results: ITS Impressions Abdomen/Pelvis CT 05/27/25 17:56 IMPRESSION: Scrotal abscesses detailed above with cellulitis. Incidental findings above. Labs Labs: Laboratory Results - last 24 hr 06/02/25 06/02/25 06/02/25 12:18 16:41 19:55 WBC RBC Hgb Hct MCV MCH MCHC RDW Plt Count MPV Sodium Potassium Chloride Carbon Dioxide Anion Gap BUN Creatinine Estim Creat Clear Calc Estimated GFR Glucose POC Capillary Glucose 126 H 173 H 200 H Calcium Phosphorus Albumin C. difficile (PCR) 10/06/03/25 06/03/25 01:09 04:59 07:31 WBC 9.0 RBC 3.55 L Hgb 9.2 L Hct 30.5 L MCV 85.9 MCH 25.9 L MCHC 30.2 L RDW 15.2 H Plt Count 287 MPV 10.6 H Sodium 137 Potassium 3.9 Chloride 99 Carbon Dioxide 29 Anion Gap 9 BUN 32 H D Creatinine 8.38 H Estim Creat Clear Calc 13 Estimated GFR 7 L Glucose 214 H POC Capillary Glucose 224 H Calcium 8.2 L Phosphorus 4.9 H Albumin 3.3 L C. difficile (PCR) Negative 06/03/25 11:18 WBC RBC Hgb Hct MCV MCH MCHC RDW Plt Count MPV Sodium Potassium Chloride Carbon Dioxide Anion Gap BUN Creatinine Estim Creat Clear Calc Estimated GFR Glucose POC Capillary Glucose 217 H Calcium Phosphorus Albumin C. difficile (PCR) Quality VTE Prophylaxis VTE prophylaxis: pharmacologic ordered Hospitalist MIPS Advance Care Plan I have confirmed that the patient's Advanced Care Plan is present, code status is documented, or surrogate decision maker is listed in patient medical record.: Yes Medication Reconciliation I have utilized all available resources to obtain, update and review the patients current medications (includes all prescriptions, OTC, herbals, cannabis, and nutritional supplements).: Yes
[2025-06-03] MEDS: LOPERAMIDE HCL 2 MG CAPSULE PO ×2 (17:25→21:33)
[2025-06-03] MEDS: INSULIN ASPART (*BKC) 100 UNITS/ML 12 UNITS SUB-Q (17:26)
[2025-06-03 17:48] LABS: Add Urine Microscopic? YES; Appearance Urine Cloudy (Clear); Glucose Urine UA 1+ mg/dL (Negative); Leukocyte Esterase Ur 3+ LEU/UL (Negative); Need Manual Microscopic Reviewed; Nitrate Urine Negative (Negative); Specific Grav Ur 1.017 (1.001-1.035)
[2025-06-04] MEDS: LOPERAMIDE HCL 2 MG CAPSULE PO ×2 (00:25→12:09)
[2025-06-04 04:00] VITALS: BP 128/64; PULSE 70; RESP 18; TEMP 36.8; O2SAT 99
[2025-06-04] MEDS: PIPERACILLIN/TAZOBACTAM SOD 2.25 GM in SODIUM CHLORIDE 0.9% IV 50 ML 100 ML IVPB (05:12)
[2025-06-04 05:50] LABS: Hematocrit 29.8 % (42.0-52.0); Hemoglobin 9.0 g/dL (14.0-18.0); Mean Corpuscular HGB Conc 30.2 g/dl (32-36); Mean Corpuscular Hemoglobin 25.9 pg (26-34); Mean Corpuscular Volume 85.6 fl (80-100); Platelet Count Result 313 k/mm3 (150-375); Red Blood Count 3.48 M/mm3 (4.6-6.20); White Blood Count 9.6 K/mm3 (4.5-10.0)
[2025-06-04 06:30] LABS: Albumin Level 3.5 g/dL (3.5-5.1); Anion Gap 12 mmol/L (4-12); Blood Urea Nitrogen 43 mg/dL (9-20); Calcium 7.7 mg/dL (8.4-10.2); Carbon Dioxide 25 mmol/L (22-30); Chloride 100 mmol/L (98-107); Estimated CRCL calculation 10 ml/min; Estimated Glomerular Filt Rate 5; Glucose 141 mg/dL (65-110); Potassium 3.6 mmol/L (3.4-5.0); Sodium 137 mmol/L (137-145)
[2025-06-04 08:00] VITALS: BP 129/62; PULSE 73; RESP 18; TEMP 36.1; O2SAT 96
--- NOTE | 2025-06-04 08:47 | P.PNUR_ITS ---
Progress Note: A&P Assessment and Plan (1) Scrotal abscess: Code(s): N49.2 - Inflammatory disorders of scrotum Status: Acute Assessment and Plan: - S/p I&D; wound team managing - Pt has been educated on dressing changes and is prepared to perform at home - WBC now wnl at 9.6 - No further intervention; will have pt follow up as outpatient for wound check (2) Gross hematuria: Code(s): R31.0 - Gross hematuria Status: Acute Assessment and Plan: - New onset gross hematuria - Pt emptying adequately on bladder scans; PVR 150 ml on US per RN - CT A/P without upper tract masses, stones, hydro or other identifiable source of gross hematuria - Plan for cystoscopy at outpatient follow up for lower tract evaluation - No recommended intervention at this time Subjective Subjective Date/Time Seen: 06/04/25 08:47 Interval history: NAEO; resting comfortably in bed. Pt reports small volume voids which are pink tinted. No other voiding complaints. Recovering without issue after I&D and dressing changes going well. Exam Const: General: cooperative, healthy appearing, comfortable and no acute distress Orientation/consciousness: oriented to person, oriented to place and oriented to time HENMT: Head: normal to inspection Mouth: Yes moist mucous membranes Eyes: General: appearance normal, both eyes and all related structures Resp: Effort & Inspection: normal respiratory effort : Other: right scrotal surgical opening is packed. drainage is minimal. no erythema. There is no crepitus. The testis and epididymis are normal. Urinary Catheter: Urinary Catheter: other (no cath and hasnt made urine in a few days. ) Skin: General skin exam: normal color Psych: Appearance: grossly normal and well kempt Mental Status: mental status grossly normal Speech and movement: Normal speech and movement present Affect: normal affect Objective Data Vital Signs Vital Signs: Vital Signs - 24 hr 06/03/25 16:00 06/03/25 20:00 06/03/25 23:59 Temperature 36.2 C L 37.1 C 37.3 C Pulse Rate 73 77 78 Respiratory Rate 17 18 18 Blood Pressure 135/60 114/47 L 136/76 Pulse Oximetry 98 95 98 06/04/25 04:00 06/04/25 08:00 Temperature 36.8 C 36.1 C L Pulse Rate 70 73 Respiratory Rate 18 18 Blood Pressure 128/64 129/62 Pulse Oximetry 99 96 Intake/Output Intake/Output: Intake & Output 06/01/25 06/02/25 06/03/25 06/04/25 23:59 23:59 23:59 23:59 Intake Total 1506 1840 1478 1540 Output Total 2500 200 175 Balance 1506 -660 1278 1365 Meds/Results Medications: Active Medications Generic Name Dose Route Start Last Admin Trade Name Freq PRN Reason Stop Dose Admin Acetaminophen 650 mg 05/31/25 21:55 06/01/25 03:07 Acetaminophen 325 Mg Tablet PO 650 mg Q4H PRN Administration Mild Pain (1-3) or Fever Atorvastatin Calcium 20 mg 05/28/25 09:35 06/03/25 08:00 Atorvastatin 20 Mg Tablet PO 20 mg DAILY TITO Administration Dextrose 12.5 gm 05/27/25 22:05 Dextrose 50% 25 Gm/50 Ml Syringe IV PUSH PRN PRN Hypoglycemia Protocol Furosemide 80 mg 05/28/25 09:35 06/03/25 08:05 Furosemide 80 Mg Tablet PO 80 mg DAILY TITO Administration Glucose 15 gm 05/27/25 22:05 Glucose Oral Gel 15 Gm Of Glucse In 37.5 Gm Tube PO PRN PRN Hypoglycemia Protocol Heparin Sodium (Porcine) 5,000 units 05/31/25 21:00 06/03/25 20:34 Heparin Sodium 5,000 Units/Ml Vial SUB-Q 5,000 units Q12HR TIOT Administration Dextrose 1,000 mls @ 100 mls/hr 05/27/25 22:05 Dextrose 5% 1,000 Ml IVPB PRN PRN Hypoglycemia Protocol Albumin Human 50 mls @ 999 mls/hr 05/29/25 06:50 Albutein IVPB 06/28/25 06:49 Q10M PRN HYPOTENSION Piperacillin Sod/Tazobactam 50 mls @ 100 mls/hr 06/02/25 12:00 06/04/25 05:52 Sod 2.25 gm/ Sodium Chloride IVPB Infused Q6H TITO Infusion Insulin Aspart 2 - 5 units 05/28/25 08:00 06/03/25 16:53 Insulin Aspart (*Bkc) 100 Units/Ml SUB-Q Not Given TIDWM [facility] Protocol Insulin Aspart 1 - 2 units 05/28/25 21:00 06/03/25 20:36 Insulin Aspart (*Bkc) 100 Units/Ml SUB-Q Not Given HS TITO Protocol Insulin Aspart 12 units 06/03/25 17:00 06/03/25 17:26 Insulin Aspart (*Bkc) 100 Units/Ml SUB-Q 12 units TID TITO Administration Insulin Glargine 21 units 05/29/25 10:00 06/03/25 09:35 Insulin Glargine (*Bkc) 100 Units/Ml SUB-Q 21 units DAILY@1000 TITO Administration Lidocaine/Prilocaine 1 each 05/29/25 06:50 05/31/25 08:05 Lidocaine/Prilocaine Cream 2.5-2.5% Tube TOPICAL 1 each WITH DIALYSIS PRN Administration for dialysis Protocol Lisinopril 20 mg 05/28/25 09:35 06/03/25 08:01 Lisinopril 20 Mg Tablet PO 20 mg DAILY TITO Administration Loperamide HCl 2 mg 06/03/25 16:38 06/04/25 00:25 Loperamide Hcl 2 Mg Capsule PO 2 mg Q4H PRN Administration Diarrhea Tramadol HCl 25 mg 05/28/25 12:34 05/31/25 16:36 Tramadol Hcl (*Crx) 25 Mg Tablet PO 25 mg Q4H PRN Administration Pain Rated 4-6 Radiology Results: ITS Impressions Abdomen/Pelvis CT 05/27/25 17:56 IMPRESSION: Scrotal abscesses detailed above with cellulitis. Incidental findings above. Labs Labs: Laboratory Results - last 24 hr 06/03/25 06/03/25 06/03/25 11:18 16:47 17:25 WBC RBC Hgb Hct MCV MCH MCHC RDW Plt Count MPV Sodium Potassium Chloride Carbon Dioxide Anion Gap BUN Creatinine Estim Creat Clear Calc Estimated GFR Glucose POC Capillary Glucose 217 H 149 H Calcium Phosphorus Albumin Urine Color Dark yellow Urine Appearance Cloudy H Urine pH 5.5 Ur Specific [place] 1.017 Urine Protein 2+ H Urine Glucose (UA) 1+ H Urine Ketones Trace H Ur Blood (Man) 2+ H Urine Nitrate Negative Urine Bilirubin Negative Urine Urobilinogen 0.2 Add Ur Microanalysis Reviewed Leukocyte Esterase Rfl 3+ H Urine RBC 0-2 Urine WBC >100 H Ur Squamous Epith Cells None seen Urine Bacteria None seen Urine Casts 6-10 06/03/25 06/04/25 06/04/25 20:08 05:10 07:33 WBC 9.6 RBC 3.48 L Hgb 9.0 L Hct 29.8 L MCV 85.6 MCH 25.9 L MCHC 30.2 L RDW 15.4 H Plt Count 313 MPV 10.2 Sodium 137 Potassium 3.6 Chloride 100 Carbon Dioxide 25 Anion Gap 12 BUN 43 H D Creatinine 10.30 H Estim Creat Clear Calc 10 Estimated GFR 5 L Glucose 141 H POC Capillary Glucose 150 H 156 H Calcium 7.7 L Phosphorus 6.5 H Albumin 3.5 Urine Color Urine Appearance Urine pH Ur Specific [place] Urine Protein Urine Glucose (UA) Urine Ketones Ur Blood (Man) Urine Nitrate Urine Bilirubin Urine Urobilinogen Add Ur Microanalysis Leukocyte Esterase Rfl Urine RBC Urine WBC Ur Squamous Epith Cells Urine Bacteria Urine Casts
[2025-06-04] MEDS: INSULIN ASPART (*BKC) 100 UNITS/ML 12 UNITS SUB-Q ×2 (08:53→12:10)
[2025-06-04] MEDS: FUROSEMIDE 80 MG TABLET PO (08:54)
[2025-06-04] MEDS: ATORVASTATIN 20 MG TABLET PO (08:54)
[2025-06-04] MEDS: INSULIN GLARGINE (*BKC) 100 UNITS/ML 21 UNITS SUB-Q (08:56)
--- NOTE | 2025-06-04 10:36 | P.PNNP_ITS ---
Progress Note: A&P Assessment and Plan (1) End stage renal disease: Code(s): N18.6 - End stage renal disease Status: Chronic Assessment and Plan: * HD tomorrow * continue outpatient HD schedule of //Wednesday * follow electrolytes, volume status, and clearance (2) Scrotal abscess: Code(s): N49.2 - Inflammatory disorders of scrotum Status: Acute Assessment and Plan: * as noted by clinical history and imaging: * worsening pain and swelling of his scrotal right side * 10 days prior to admission he had an area of induration on his scrotal sac with a bit of drainage * given clindamycin by PCP but symptoms continued to worsen * CT of abdomen/pelvis: scrotum with rim-enhancing abscesses the largest on the right side measuring 2 x 2.2 cm with induration of the remaining soft tissues but no gross air within the soft tissues themselves * Urology following * s/p incision and drainage on 05/29 * local wound care * follow culture data * Infectious Disease following * on antibiotics (3) Anemia: Qualifiers: Anemia type: unspecified type Qualified Code(s): D64.9 - Anemia, unspecified Code(s): D64.9 - Anemia, unspecified Status: Chronic Assessment and Plan: * due to ESRD * likely worsened by acute illness/infection * Epogen with HD * follow trend of H/H (4) Hypertension: Qualifiers: Hypertension type: unspecified Qualified Code(s): I10 - Essential (primary) hypertension Code(s): I10 - Essential (primary) hypertension Status: Chronic Assessment and Plan: * reasonable control * follow trend of hemodynamics (5) Type 2 diabetes mellitus: Qualifiers: Diabetes mellitus complication detail: with nephropathy Diabetes mellitus complication status: with kidney complications Diabetes mellitus senior care insulin use: without senior care use Qualified Code(s): E11.21 - Type 2 diabetes mellitus with diabetic nephropathy Code(s): E11.9 - Type 2 diabetes mellitus without complications Status: Chronic Assessment and Plan: * follow accu-cheks * glycemic control per hospitalist Will continue to follow. L Subjective Date/time seen: 06/04/25 10:36 Interval history: Follow-up for end stage renal disease on hemodialysis. Chart reviewed since last seen -- seems to be doing reasonably well at the time of my visit; as always, remains in good spirits, no new issues or events overnight or earlier this morning; no acute complaints to report when seen. Exam 2 Narrative: General: WD/WN male in NAD Heart: normal S1 and S2; no rub Lungs: clear to auscultation Abdomen: soft, nontender, nondistended, positive bowel sounds Extremities: no cyanosis or clubbing; no edema Skin: warm and dry Objective Data Vital Signs Vital Signs: Vital Signs Temp Pulse Resp BP Pulse Ox O2 Del Method 06/04/25 08:54 Room Air 06/04/25 08:00 96.9 F L 73 18 129/62 96 06/04/25 04:00 98.2 F 70 18 128/64 99 06/03/25 23:59 99.1 F 78 18 136/76 98 06/03/25 20:00 98.8 F 77 18 114/47 L 95 06/03/25 16:00 97.1 F L 73 17 135/60 98 Intake/Output Intake/Output: Intake & Output 06/01/25 06/02/25 06/03/25 06/04/25 23:59 23:59 23:59 23:59 Intake Total 1506 1840 1478 1780 Output Total 2500 200 175 Balance 1506 -660 1278 1605 Meds/Results Medications: Active Medications Generic Name Dose Route Start Last Admin Trade Name Freq PRN Reason Stop Dose Admin Acetaminophen 650 mg 05/31/25 21:55 06/01/25 03:07 Acetaminophen 325 Mg Tablet PO 650 mg Q4H PRN Administration Mild Pain (1-3) or Fever Atorvastatin Calcium 20 mg 05/28/25 09:35 06/04/25 08:54 Atorvastatin 20 Mg Tablet PO 20 mg DAILY TITO Administration Dextrose 12.5 gm 05/27/25 22:05 Dextrose 50% 25 Gm/50 Ml Syringe IV PUSH PRN PRN Hypoglycemia Protocol Furosemide 80 mg 05/28/25 09:35 06/04/25 08:54 Furosemide 80 Mg Tablet PO 80 mg DAILY TITO Administration Glucose 15 gm 05/27/25 22:05 Glucose Oral Gel 15 Gm Of Glucse In 37.5 Gm Tube PO PRN PRN Hypoglycemia Protocol Heparin Sodium (Porcine) 5,000 units 05/31/25 21:00 06/04/25 08:54 Heparin Sodium 5,000 Units/Ml Vial SUB-Q 5,000 units Q12HR TITO Administration Dextrose 1,000 mls @ 100 mls/hr 05/27/25 22:05 Dextrose 5% 1,000 Ml IVPB PRN PRN Hypoglycemia Protocol Albumin Human 50 mls @ 999 mls/hr 05/29/25 06:50 Albutein IVPB 06/28/25 06:49 Q10M PRN HYPOTENSION Piperacillin Sod/Tazobactam 50 mls @ 100 mls/hr 06/02/25 12:00 06/04/25 05:52 Sod 2.25 gm/ Sodium Chloride IVPB Infused Q6H TITO Infusion Insulin Aspart 2 - 5 units 05/28/25 08:00 06/04/25 08:54 Insulin Aspart (*Bkc) 100 Units/Ml SUB-Q Not Given TIDWM [facility] Protocol Insulin Aspart 1 - 2 units 05/28/25 21:00 06/03/25 20:36 Insulin Aspart (*Bkc) 100 Units/Ml SUB-Q Not Given HS TITO Protocol Insulin Aspart 12 units 06/03/25 17:00 06/04/25 08:53 Insulin Aspart (*Bkc) 100 Units/Ml SUB-Q 12 units TID TITO Administration Insulin Glargine 21 units 05/29/25 10:00 06/04/25 08:56 Insulin Glargine (*Bkc) 100 Units/Ml SUB-Q 21 units DAILY@1000 TITO Administration Lidocaine/Prilocaine 1 each 05/29/25 06:50 05/31/25 08:05 Lidocaine/Prilocaine Cream 2.5-2.5% Tube TOPICAL 1 each WITH DIALYSIS PRN Administration for dialysis Protocol Lisinopril 20 mg 05/28/25 09:35 06/04/25 08:54 Lisinopril 20 Mg Tablet PO 20 mg DAILY TITO Administration Loperamide HCl 2 mg 06/03/25 16:38 06/04/25 00:25 Loperamide Hcl 2 Mg Capsule PO 2 mg Q4H PRN Administration Diarrhea Tramadol HCl 25 mg 05/28/25 12:34 05/31/25 16:36 Tramadol Hcl (*Crx) 25 Mg Tablet PO 25 mg Q4H PRN Administration Pain Rated 4-6 Radiology Results: ITS Impressions Abdomen/Pelvis CT 05/27/25 17:56 IMPRESSION: Scrotal abscesses detailed above with cellulitis. Incidental findings above. Labs Labs: Laboratory Tests 06/04/25 05:10 06/04/25 05:10 Calcium 7.7 L Phosphorus 6.5 H Albumin 3.5 Microbiology 05/29/25 15:25 Abscess Anaerobic Culture - Final Gram negative bacilli isolated 05/29/25 15:25 Abscess Aerobic Culture - Final 05/29/25 15:25 Abscess Gram Stain - Final 05/27/25 16:21 Blood Blood Culture - Final 05/27/25 16:55 Blood Blood Culture - Final
--- NOTE | 2025-06-04 11:09 | PCNWS ---
Weekly nutritional screen. Patient is tolerating current Diabetic / Renal diet with adequate intake 100% of meals. No weight loss reported. No nutritional recommendations at this time.
[2025-06-04 12:00] VITALS: BP 121/69; PULSE 71; RESP 18; TEMP 36.2; O2SAT 96
[2025-06-04] MEDS: PIPERACILLIN/TAZOBACTAM SOD 2.25 GM in SODIUM CHLORIDE 0.9% IV 50 ML 1000 ML IVPB (12:09)
--- NOTE | 2025-06-04 14:07 | P.DS_ITS ---
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 Initially noted a small area of induration with minimal drainage, treated with outpatient clindamycin without improvement. On admission, WBC was 15.8, creatinine 7.96, and CT abdomen/pelvis revealed multiple rim-enhancing scrotal abscesses (largest 2 x 2.2 cm, right side) with surrounding cellulitis, no gas. Urology and nephrology were consulted. Hospital Course: * Antibiotics:?Started on cefepime, metronidazole, and vancomycin. Transitioned to Augmentin and vancomycin post-op, then to Zosyn and vancomycin per ID recommendations. Vancomycin discontinued after negative cultures and clinical improvement. * Surgical Intervention:?Underwent incision and drainage of right scrotal abscess on 05/29/25. Intraoperative cultures negative. Wound care managed by wound team; patient and educated on dressing changes. * Infectious Disease:?Persistent low-grade fevers and leukocytosis post-op, both resolved with continued antibiotics. No growth on blood, urine, or wound cultures. MRSA swab negative. C. difficile negative despite diarrhea. * Nephrology:?Continued outpatient hemodialysis schedule. Anemia managed with Epogen during HD. Electrolytes and volume status monitored. * Diabetes Management:?Home regimen of Lantus and aspart adjusted for hospitalization. HgbA1c 12.1. Glycemic control managed with sliding scale and basal/bolus insulin. * Hypertension:?Continued home antihypertensives (lisinopril, nifedipine, metoprolol). BP monitored and remained stable. * Gross Hematuria:?Developed new gross hematuria during admission. CT A/P negative for upper tract source. PVR 150 mL. Plan for outpatient cystoscopy. * Other:?No evidence of sepsis. No further intervention required. DVT prophylaxis with heparin. No acute cardiac, respiratory, or neurologic events. Pertinent Labs and Imaging * CBC:?Initial WBC 15.8 ? normalized to 9.6; Hgb 10.7, Hct 33.9 * BMP:?Creatinine 7.96, BUN 47, Na 131, Glucose 424 * UA:?Proteinuria 2+, glucosuria 3+, gross hematuria developed during stay * CT Abdomen/Pelvis:?Multiple rim-enhancing scrotal abscesses, no gas, no upper tract source for hematuria * Cultures:?Blood, urine, wound cultures negative Procedures * 05/29/25:?Incision and drainage of right scrotal abscess under general anesthesia. No necrotic tissue. Cavity irrigated and packed. No complications. Discharge Condition * Afebrile, hemodynamically stable * Wound healing well, minimal drainage, no erythema or crepitus * WBC normalized * No further intervention required at this time * Gross hematuria improved, voiding adequately, PVR 150 mL * Tolerating diet, no acute complaints * Patient and educated on wound care and signs of infection Discharge Medications * Augmentin 500/125 mg daily x 10 days * Insulin:?Continue Lantus and aspart per adjusted regimen * Antihypertensives:?Continue home regimen (lisinopril, nifedipine, metoprolol) * Other:?Continue calcium carbonate, ergocalciferol, Epogen with HD as outpatient Follow-Up and Recommendations * Urology:?Outpatient follow-up for wound check and cystoscopy for hematuria * Nephrology:?Continue outpatient hemodialysis schedule, monitor anemia and electrolytes * Infectious Disease:?Contineu Augmentin x 10 days as baove * Primary Care/Endocrinology:?Glycemic control, hypertension, and chronic disease management * Wound Care:?Continue local wound care as instructed; monitor for signs of infection * Return Precautions:?Fever, worsening pain, increased drainage, signs of systemic infection, inability to void, or other new symptoms Time Spent with Patient Time attestation: Total time spent providing and/or coordinating discharge services: DS: Data Data Completed and Pending Labs on day of discharge: Labs from last 24 hours 06/04/25 06/04/25 06/04/25 11:19 07:33 05:10 WBC 9.6 RBC 3.48 L Hgb 9.0 L Hct 29.8 L MCV 85.6 MCH 25.9 L MCHC 30.2 L RDW 15.4 H Plt Count 313 MPV 10.2 Sodium 137 Potassium 3.6 Chloride 100 Carbon Dioxide 25 Anion Gap 12 BUN 43 H D Creatinine 10.30 H Estim Creat Clear Calc 10 Estimated GFR 5 L Glucose 141 H POC Capillary Glucose 189 H 156 H Calcium 7.7 L Phosphorus 6.5 H Albumin 3.5 Urine Color Urine Appearance Urine pH Ur Specific Reese Urine Protein Urine Glucose (UA) Urine Ketones Ur Blood (Man) Urine Nitrate Urine Bilirubin Urine Urobilinogen Add Ur Microanalysis Leukocyte Esterase Rfl Urine RBC Urine WBC Ur Squamous Epith Cells Urine Bacteria Urine Casts 06/03/25 06/03/25 06/03/25 20:08 17:25 16:47 WBC RBC Hgb Hct MCV MCH MCHC RDW Plt Count MPV Sodium Potassium Chloride Carbon Dioxide Anion Gap BUN Creatinine Estim Creat Clear Calc Estimated GFR Glucose POC Capillary Glucose 150 H 149 H Calcium Phosphorus Albumin Urine Color Dark yellow Urine Appearance Cloudy H Urine pH 5.5 Ur Specific Reese 1.017 Urine Protein 2+ H Urine Glucose (UA) 1+ H Urine Ketones Trace H Ur Blood (Man) 2+ H Urine Nitrate Negative Urine Bilirubin Negative Urine Urobilinogen 0.2 Add Ur Microanalysis Reviewed Leukocyte Esterase Rfl 3+ H Urine RBC 0-2 Urine WBC >100 H Ur Squamous Epith Cells None seen Urine Bacteria None seen Urine Casts 6-10 Preliminary micro results at discharge 05/29/25 15:25 Fungal Culture - Preliminary Abscess 05/29/25 15:28 Fungal Culture - Preliminary Abscess Discharge Plan Discharge Attending physician on discharge: Leslie Solomon Consulting providers: Sharon Farah; Tamra Martin; Bruce Pulido; Francine Mendez; Julio Barrett Discharging Clinician: Leslie Solomon Anticipated Discharge Date/Time: 06/04/25 14:05 Patient Disposition: Home Activity: as tolerated Diet: as tolerated and regular Patient Instructions: Antibiotic Form Patient Language: Tajik Stand Alone Forms: General Discharge Information Follow-up/Referrals: Osman,MD Franky [Primary Care Provider] Referral Note: F/u with PCP in 3-5 days Tamra Martin MD [Physician, Nephrology] Referral Note: F/u with Nephrology as in structed Julio Barrett MD [Physician, Infectious Disease] Referral Note: F/u wtih ID as instructed Bruce Pulido MD [Physician, Urology] Referral Note: F/u with Urology as instructed Discharge Medications: New amoxicillin-pot clavulanate [Augmentin] 500-125 mg Tablet 1 tablet PO QPM 10 Days Qty: 10 0RF Continued lisinopril 20 mg tablet 20 mg PO DAILY furosemide 80 mg tablet 80 mg PO DAILY atorvastatin 20 mg tablet 20 mg PO DAILY insulin glargine-yfgn 100 unit/mL (3 mL) insulin pen 25 unit SUBCUT DAILY@1000 insulin aspart U-100 100 unit/mL (3 mL) insulin pen 10 unit SUBCUT TID Patient Comments: PATIENT TAKES BETWEEN 10-20 UNITS WITH MEALS calcium carbonate [Oyster Shell Calcium 500] 500 mg calcium (1,250 mg) Tablet 500 mg PO DAILY ergocalciferol (vitamin D2) 1,250 mcg (50,000 unit) capsule 1,250 mcg PO DAILY Date of admission: 05/29/25 09:30 Primary Care Provider: CoriFranky Admitting Provider: Arpan Ashley Attending physician on admission: Arpan Ashley Condition: Stable
--- NOTE | 2025-06-04 19:49 | P.PNINF_ITS ---
Progress Note: A&P Assessment and Plan (1) Scrotal abscess: Code(s): N49.2 - Inflammatory disorders of scrotum Status: Acute (2) End stage renal disease: Code(s): N18.6 - End stage renal disease Status: Chronic (3) Fever: Code(s): R50.9 - Fever, unspecified Status: Acute Plan # Scrotal cellulitis with abscess and status post I and D. Anaerobic cx with dialister # Postprocedure persistent fever and leukocytosis. Resolved #Diabetes and end-stage renal disease on hemodialysis. Plan: ok to discharge on augmentin 500 mg po daily x 10 days d/w pharmacy staff Patient was seen via video telehealth consultation with the assistance of staff. Chart, data, and patient independently reviewed. Patient was located at [facility] while I was located in my [place] office. Received verbal consent from patient. Subjective Date/time seen: 06/04/25 19:49 Interval history: no high temps drainage better Exam Narrative: NAD, non-toxic, up in chair on room air LUE AVF : swelling better Objective Data Vital Signs Vital Signs: Vital Signs - 24 hr 06/03/25 20:00 06/03/25 23:59 06/04/25 04:00 Temperature 98.8 F 99.1 F 98.2 F Pulse Rate 77 78 70 Respiratory Rate 18 18 18 Blood Pressure 114/47 L 136/76 128/64 Pulse Oximetry 95 98 99 Oxygen Delivery 06/04/25 08:00 06/04/25 08:54 06/04/25 12:00 Temperature 96.9 F L 97.1 F L Pulse Rate 73 71 Respiratory Rate 18 18 Blood Pressure 129/62 121/69 Pulse Oximetry 96 96 Oxygen Delivery Room Air Intake/Output Intake/Output: Intake & Output 06/01/25 06/02/25 06/03/25 06/04/25 23:59 23:59 23:59 23:59 Intake Total 1506 1840 1478 2020 Output Total 2500 200 175 Balance 1506 -660 1278 1845 Meds/Results Radiology Results: ITS Impressions Abdomen/Pelvis CT 05/27/25 17:56 IMPRESSION: Scrotal abscesses detailed above with cellulitis. Incidental findings above. Labs Labs: Laboratory Results - last 24 hr 10/26/25 10/27/25 10/27/25 20:08 05:10 07:33 WBC 9.6 RBC 3.48 L Hgb 9.0 L Hct 29.8 L MCV 85.6 MCH 25.9 L MCHC 30.2 L RDW 15.4 H Plt Count 313 MPV 10.2 Sodium 137 Potassium 3.6 Chloride 100 Carbon Dioxide 25 Anion Gap 12 BUN 43 H D Creatinine 10.30 H Estim Creat Clear Calc 10 Estimated GFR 5 L Glucose 141 H POC Capillary Glucose 150 H 156 H Calcium 7.7 L Phosphorus 6.5 H Albumin 3.5 06/04/25 11:19 WBC RBC Hgb Hct MCV MCH MCHC RDW Plt Count MPV Sodium Potassium Chloride Carbon Dioxide Anion Gap BUN Creatinine Estim Creat Clear Calc Estimated GFR Glucose POC Capillary Glucose 189 H Calcium Phosphorus Albumin
== END 2025-06-04 14:55 | disposition home or self-care (01) | DRG 727 ==
LOC: ANHED 14:20 → ANH3MEDSUR 19:41
PROVIDERS: General Practice; Internal Medicine Nephrology; Nurse Practitioner Acute Care; Student in an Organized Health Care Education/Training Program; Urology; Admitting Provider Internal Medicine; Emergency Provider Physician Assistant; PCP Internal Medicine; Visit Provider Internal Medicine
PROC: 0V950ZX Drainage of Scrotum, Open Approach, Diagnostic (ICD-10-PCS; CPT 54700; principal; 2025-05-29 15:00)
DX: N49.2 Inflammatory disorders of scrotum (principal); N18.6 End stage renal disease; I12.0 Hypertensive chronic kidney disease with stage 5 chronic kidney disease or end stage renal disease; B96.89 Other specified bacterial agents as the cause of diseases classified elsewhere; E11.21 Type 2 diabetes mellitus with diabetic nephropathy; E11.319 Type 2 diabetes mellitus with unspecified diabetic retinopathy without macular edema; E78.5 Hyperlipidemia, unspecified; D63.1 Anemia in chronic kidney disease; E66.9 Obesity, unspecified; R31.0 Gross hematuria; R50.82 Postprocedural fever; Z68.30 Body mass index [BMI] 30.0-30.9, adult; Z99.2 Dependence on renal dialysis
CPT/HCPCS: 36415; 74177; 80048; 80053; 80069; 80202; 81001; 82565; 82948; 83036; 83605; 83735; 85025; 85027; 85652; 86140; 86706; 87040; 87070; 87075; 87086; 87101; 87205; 87340; 87493; 87641; 96365; 96367; 99285; A9270; G0257; G0378; J0692; J1644; J1815; J1836; J2003; J2405; J2543; J2704; J3010; J3373; J7030; J7040; J7050; Q5105; Q9967

== ENCOUNTER 2025-06-19 00:35 | Day surgery (SDC) | payer OTHER, SELFPAY ==
[2025-06-06 13:23] VITALS: BMI 33.1
--- NOTE | 2025-06-08 13:16 | PC.NURSE ---
Message sent to Dr. Rivera's office regarding pt. scrotal abcess. They will discuss with Dr. Rivera and follow up with patient.
--- OUTSIDE RECORDS SUMMARY | 2025-06-19 00:37 | XMS_ITS | Data Portability ---
Author Organization [facility] [place] Address [address] [place] [address] Care Team Providers Care Women Designer Name Role Phone THOMAS BREWER Primary Care Provider BRITTNY Alonzo Supervisor Electronics Inspection SHAYY Line Supervisor Assessment Encounter Date Assessment Date Assessment LastModified by Organization Details LastModified Time 02/02/2025 02/02/2025 Blood work old records we will try to see from his kidney doctor what has been tried his blood pressure in my opinion is too high but he says it goes low at dialysis. I will hold off on adjusting medications until we can see what has been going on with renal his EKG shows a normal sinus rhythm with no acute changes. We will set up a colonoscopy get his many old records as we can from renal and other sources primary care etc. follow up with me in 1 month [email or web address] Not available 02/03/2025 13:18:59 03/12/2025 03/12/2025 Atorvastatin 20 Basal bolus insulin Lisinopril hoping that as he loses weight that he will be able to bring blood pressure down he has only 142/70 at this time Has a colonoscopy in June get foot exam set up he has [facility] up for his eye follow up with me in 3 months [email or web address] Not available 04/09/2025 13:55:08 05/23/2025 05/23/2025 Clindamycin wash with soap and water he will report back in a couple of days with update I was able to express fair amount of purulence and decrease the size of the abscess by about 80% [email or web address] Not available 05/26/2025 18:07:12 Plan of Treatment Reminders Order Date Submit Date Provider Last Modified By Organization Details Last Modified Time Details Appointments ANY 15 2025 09:30A M Thomas Brewer MD Not available Not available Not available Lab lipid panel, serum 2024 025 [facility] (Centralized Electronic Ordering - All Locations), Patient Can Go To The Location Of Their Choice, [id number] 02/03/2025 08:18:34 CBC w/ auto diff 2024 025 [facility]ERTO [facility] (Centralized Electronic Ordering - All Locations), Patient Can Go To The Location Of Their Choice, [id number] 02/03/2025 08:18:36 CMP, serum or plasma 2024 025 [facility]ERTO [facility] (Centralized Electronic Ordering - All Locations), Patient Can Go To The Location Of Their Choice, [id number] 02/03/2025 08:18:35 HbA1c (hemoglob in A1c), blood 2024 025 [facility]ERTO [facility] (Centralized Electronic Ordering - All Locations), Patient Can Go To The Location Of Their Choice, [id number] 02/03/2025 08:18:36 Referral None recorded. Procedures colonosco py screening (PROC) 2024 025 [facility], [address], [place], [address], 04/05/2025 12:19:32 Surgeries None recorded. Imaging None recorded. Medication Orders clindamyc in HCl 300 mg capsule 2024 025 [facility] [address] [place], [address], 06/09/2025 05:02:16 Patient TargetsNo targets recorded. Patient Instructions Encounter Date Encounter Id Patient Instructions Last Modified By Organization Details Last Modified Time 02/02/2025 [id number] A healthy lifestyle: care instructions [email or web address] Not available 02/02/2025 17:09:48 03/12/2025 [id number] A healthy lifestyle: care instructions [email or web address] Not available 03/12/2025 16:59:36 Reason for Referral Urologist Referral for Absce ss of scrotum [facility] follow up. Referring Physician: Thomas Brewer, Internal Medicine, Encounter Date: 06/11/2025 Results Created Date Observation Date Name Description Value Unit Range Abnormal Flag Note LastModifiedBy Organization Detail LastModifiedTime 01/04/20 25 01/03/2025 Juan Carlos tin [Mass /volu me] in Serum or Plasm a ferritin [mass/volume ] in serum or plasma 1520 text: 22.0-3 22.0 high Not Available Not Available 03/12/2025 05:05:00 01/04/20 25 01/03/[address] [Mass /volu me] in Serum or Plasm a parathyrin.i ntact [mass/volume ] in serum or plasma 435 text: 18.0-8 0.0 high Not Available Not Available 03/12/2025 05:05:00 01/04/20 25 01/03/2025 Juan Carlos tin [Mass /volu me] in Serum or Plasm a ferritin [mass/volume ] in serum or plasma 1520 text: 22.0-3 22.0 high Not Available Not Available 03/12/2025 05:05:00 01/04/20 25 01/03/[address] [Mass /volu me] in Serum or Plasm a parathyrin.i ntact [mass/volume ] in serum or plasma 435 text: 18.0-8 0.0 high Not Available Not Available 03/12/2025 05:05:00 01/06/20 25 01/05/2025 Juan Carlos tin [Mass /volu me] in Serum or Plasm a ferritin [mass/volume ] in serum or plasma 1463 text: 22.0-3 22.0 high Not Available Not Available 03/12/2025 05:04:59 01/06/20 25 01/05/2025 Juan Carlos tin [Mass /volu me] in Serum or Plasm a ferritin [mass/volume ] in serum or plasma 1463 text: 22.0-3 22.0 high Not Available Not Available 03/12/2025 05:04:59 01/13/20 25 01/12/2025 Urea nitro gen [Mass /volu me] in Serum or Plasm a urea nitrogen [mass/volume ] in serum or plasma 74 text: 9.0-23 .0 high Not Available Not Available 03/12/2025 05:04:59 01/13/20 25 01/12/2025 Phosp hate [Mass /volu me] in Serum or Plasm a phosphate [mass/volume ] in serum or plasma 6.4 text: 2.4-5. 1 high Not Available Not Available 03/12/2025 05:04:59 01/13/20 25 01/12/2025 Urea nitro gen [Mass /volu me] in Serum or Plasm a urea nitrogen [mass/volume ] in serum or plasma 74 text: 9.0-23 .0 high Not Available Not Available 03/12/2025 05:04:59 01/13/20 25 01/12/2025 Phosp hate [Mass /volu me] in Serum or Plasm a phosphate [mass/volume ] in serum or plasma 6.4 text: 2.4-5. 1 high Not Available Not Available 03/12/2025 05:04:59 01/13/20 25 01/12/2025 Urea nitro gen [Mass /volu me] in Serum or Plasm a --pos t dialy sis urea nitrogen [mass/volume ] in serum or plasma --post dialysis 33 text: 9.0-23 .0 high Not Available Not Available 03/12/2025 05:04:59 01/13/20 25 01/12/2025 Urea nitro gen [Mass /volu me] in Serum or Plasm a --pos t dialy sis urea nitrogen [mass/volume ] in serum or plasma --post dialysis 33 text: 9.0-23 .0 high Not Available Not Available 03/12/2025 05:04:59 01/13/20 25 01/12/[address] [Mass /volu me] in Serum or Plasm a parathyrin.i ntact [mass/volume ] in serum or plasma 446 text: 18.0-8 0.0 high Not Available Not Available 03/12/2025 05:04:59 01/13/20 25 01/12/[address] [Mass /volu me] in Serum or Plasm a parathyrin.i ntact [mass/volume ] in serum or plasma 446 text: 18.0-8 0.0 high Not Available Not Available 03/12/2025 05:04:59 01/13/20 25 01/12/2025 Hemog lobin [Mass /volu me] in Blood hemoglobin [mass/volume ] in blood 9.5 text: 14.0-1 8.0 low Not Available Not Available 03/12/2025 05:04:59 01/13/20 25 01/12/2025 Hemog lobin [Mass /volu me] in Blood hemoglobin [mass/volume ] in blood 9.5 text: 14.0-1 8.0 low Not Available Not Available 03/12/2025 05:04:59 01/14/20 25 01/13/2025 Iron [Mass /volu me] in Serum or Plasm a iron [mass/volume ] in serum or plasma 46 text: 65.0-1 75.0 low Not Available Not Available 03/12/2025 05:04:59 01/14/20 25 01/13/2025 Iron rebecca ng capac ity.u nsatu rated [Mass /volu me] in Serum or Plasm a iron binding capacity.uns aturated [mass/volume ] in serum or plasma 174 text: 75.0-3 60.0 Not Available Not Available 03/12/2025 05:04:59 01/14/20 25 01/13/2025 Calci um [Mass /volu me] in Serum or Plasm a calcium [mass/volume ] in serum or plasma 7.8 text: 8.7-10 .4 low Not Available Not Available 03/12/2025 05:04:59 01/14/20 25 01/13/2025 Calci um [Mass /volu me] in Serum or Plasm a calcium [mass/volume ] in serum or plasma 7.8 text: 8.7-10 .4 low Not Available Not Available 03/12/2025 05:04:59 01/14/20 25 01/13/2025 Iron [Mass /volu me] in Serum or Plasm a iron [mass/volume ] in serum or plasma 46 text: 65.0-1 75.0 low Not Available Not Available 03/12/2025 05:04:59 01/14/20 25 01/13/2025 Iron rebecca ng capac ity.u nsatu rated [Mass /volu me] in Serum or Plasm a iron binding capacity.uns aturated [mass/volume ] in serum or plasma 174 text: 75.0-3 60.0 Not Available Not Available 03/12/2025 05:04:58 01/25/20 25 01/24/2025 Urea nitro gen [Mass /volu me] in Serum or Plasm a urea nitrogen [mass/volume ] in serum or plasma 71 text: 9.0-23 .0 high Not Available Not Available 03/12/2025 05:04:58 01/25/20 25 01/24/2025 Urea nitro gen [Mass /volu me] in Serum or Plasm a urea nitrogen [mass/volume ] in serum or plasma 71 text: 9.0-23 .0 high Not Available Not Available 03/12/2025 05:04:58 01/25/20 25 01/24/2025 Urea nitro gen [Mass /volu me] in Serum or Plasm a --pos t dialy sis urea nitrogen [mass/volume ] in serum or plasma --post dialysis 22 text: 9.0-23 .0 Not Available Not Available 03/12/2025 05:04:58 01/25/20 25 01/24/2025 Urea nitro gen [Mass /volu me] in Serum or Plasm a --pos t dialy sis urea nitrogen [mass/volume ] in serum or plasma --post dialysis 22 text: 9.0-23 .0 Not Available Not Available 03/12/2025 05:04:58 02/01/2001/31/2025 Iron rebecca ng capac ity.u nsatu rated [Mass /volu me] in Serum or Plasm a iron binding capacity.uns aturated [mass/volume ] in serum or plasma 163 text: 75.0-3 60.0 Not Available Not Available 03/12/2025 05:04:56 02/01/20 25 01/31/2025 Sodiu m [Mole s/vol ume] in Serum or Plasm a sodium [moles/volum e] in serum or plasma 138 text: 136.0- 145.0 Not Available Not Available 03/12/2025 05:04:56 02/01/20 25 01/31/2025 Iron [Mass /volu me] in Serum or Plasm a iron [mass/volume ] in serum or plasma 53 text: 65.0-1 75.0 low Not Available Not Available 03/12/2025 05:04:56 02/01/2001/31/2025 Chlor sofi [Mole s/vol ume] in Serum or Plasm a chloride [moles/volum e] in serum or plasma 98 text: 98.0-1 07.0 Not Available Not Available 03/12/2025 05:04:56 02/01/2001/31/2025 Calci um [Mass /volu me] in Serum or Plasm a calcium [mass/volume ] in serum or plasma 8.9 text: 8.7-10 .4 Not Available Not Available 03/12/2025 05:04:56 02/01/2001/31/2025 Potas sium [Mole s/vol ume] in Serum or Plasm a potassium [moles/volum e] in serum or plasma 4 text: 3.5-5. 1 Not Available Not Available 03/12/2025 05:04:56 02/01/2001/31/2025 Chlor sofi [Mole s/vol ume] in Serum or Plasm a chloride [moles/volum e] in serum or plasma 98 text: 98.0-1 07.0 Not Available Not Available 03/12/2025 05:04:56 02/01/2001/31/2025 Calci um [Mass /volu me] in Serum or Plasm a calcium [mass/volume ] in serum or plasma 8.9 text: 8.7-10 .4 Not Available Not Available 03/12/2025 05:04:56 02/01/2001/31/2025 Iron rebecca ng capac ity.u nsatu rated [Mass /volu me] in Serum or Plasm a iron binding capacity.uns aturated [mass/volume ] in serum or plasma 163 text: 75.0-3 60.0 Not Available Not Available 03/12/2025 05:04:56 02/01/2001/31/2025 Iron [Mass /volu me] in Serum or Plasm a iron [mass/volume ] in serum or plasma 53 text: 65.0-1 75.0 low Not Available Not Available 03/12/2025 05:04:55 02/01/20 25 01/31/2025 Potas sium [Mole s/vol ume] in Serum or Plasm a potassium [moles/volum e] in serum or plasma 4 text: 3.5-5. 1 Not Available Not Available 03/12/2025 05:04:55 02/01/20 25 01/31/2025 Sodiu m [Mole s/vol ume] in Serum or Plasm a sodium [moles/volum e] in serum or plasma 138 text: 136.0- 145.0 Not Available Not Available 03/12/2025 05:04:55 02/01/20 25 01/31/2025 Juan Carlos tin [Mass /volu me] in Serum or Plasm a ferritin [mass/volume ] in serum or plasma 1501 text: 22.0-3 22.0 high Not Available Not Available 03/12/2025 05:04:56 02/01/20 25 01/31/2025 Juan Carlos tin [Mass /volu me] in Serum or Plasm a ferritin [mass/volume ] in serum or plasma 1501 text: 22.0-3 22.0 high Not Available Not Available 03/12/2025 05:04:56 02/01/20 25 01/31/2025 Eosin ophil s [#/vo lume] in Blood by Autom ated count eosinophils [#/volume] in blood by automated count 78 text: 0.0-70 0.0 Not Available Not Available 03/12/2025 05:04:57 02/01/2001/31/2025 Plate lets [#/vo lume] in Blood by Autom ated count platelets [#/volume] in blood by automated count 238 text: 140.0- 450.0 Not Available Not Available 03/12/2025 05:04:57 02/01/20 25 01/31/2025 Hemog lobin [Mass /volu me] in Blood hemoglobin [mass/volume ] in blood 9.9 text: 14.0-1 8.0 low Not Available Not Available 03/12/2025 05:04:57 02/01/20 25 01/31/2025 Hemat ocrit [Volu me Fract ion] of Blood by Autom ated count hematocrit [volume fraction] of blood by automated count 30.9 text: 41.0-5 3.0 low Not Available Not Available 03/12/2025 05:04:57 02/01/2001/31/2025 Eryth rocyt es [#/vo lume] in Blood by Autom ated count erythrocytes [#/volume] in blood by automated count 3.6 text: 4.6-6. 2 low Not Available Not Available 03/12/2025 05:04:57 02/01/2001/31/2025 Leuko cytes [#/vo lume] in Blood by Autom ated count leukocytes [#/volume] in blood by automated count 7.1 text: 4.0-11 .0 Not Available Not Available 03/12/2025 05:04:57 02/01/2001/31/2025 MCV [Enti tic mean volum e] in Red Blood Cells by Autom ated count MCV [entitic mean volume] in red blood cells by automated count 85.6 text: 80.0-1 00.0 Not Available Not Available 03/12/2025 05:04:57 02/01/2001/31/2025 MCV [Enti tic mean volum e] in Red Blood Cells by Autom ated count MCV [entitic mean volume] in red blood cells by automated count 85.6 text: 80.0-1 00.0 Not Available Not Available 03/12/2025 05:04:57 02/01/2001/31/2025 Hemat ocrit [Volu me Fract ion] of Blood by Autom ated count hematocrit [volume fraction] of blood by automated count 30.9 text: 41.0-5 3.0 low Not Available Not Available 03/12/2025 05:04:57 02/01/2001/31/2025 Eryth rocyt es [#/vo lume] in Blood by Autom ated count erythrocytes [#/volume] in blood by automated count 3.6 text: 4.6-6. 2 low Not Available Not Available 03/12/2025 05:04:56 02/01/2001/31/2025 Leuko cytes [#/vo lume] in Blood by Autom ated count leukocytes [#/volume] in blood by automated count 7.1 text: 4.0-11 .0 Not Available Not Available 03/12/2025 05:04:56 02/01/20 25 01/31/2025 Plate lets [#/vo lume] in Blood by Autom ated count platelets [#/volume] in blood by automated count 238 text: 140.0- 450.0 Not Available Not Available 03/12/2025 05:04:56 02/01/20 25 01/31/2025 Hemog lobin [Mass /volu me] in Blood hemoglobin [mass/volume ] in blood 9.9 text: 14.0-1 8.0 low Not Available Not Available 03/12/2025 05:04:56 02/01/20 25 01/31/2025 Eosin ophil s [#/vo lume] in Blood by Autom ated count eosinophils [#/volume] in blood by automated count 78 text: 0.0-70 0.0 Not Available Not Available 03/12/2025 05:04:56 02/01/20 25 01/31/2025 Aspar mclaughlin amino trans feras e [Enzy matic activ ity/v olume ] in Serum or Plasm a aspartate aminotransfe rase [enzymatic activity/vol ume] in serum or plasma 11 text: 0.0-33 .0 Not Available Not Available 03/12/2025 05:04:58 02/01/2001/31/2025 Gluco se [Mass /volu me] in Serum or Plasm a glucose [mass/volume ] in serum or plasma 384 text: 74.0-1 06.0 high Not Available Not Available 03/12/2025 05:04:58 02/01/20 25 01/31/2025 Hank ne amino trans feras e [Enzy matic activ ity/v olume ] in Serum or Plasm a alanine aminotransfe rase [enzymatic activity/vol ume] in serum or plasma 15 text: 10.0-4 9.0 Not Available Not Available 03/12/2025 05:04:58 02/01/20 25 01/31/2025 Alkal ine phosp hatas e [Enzy matic activ ity/v olume ] in Serum or Plasm a alkaline phosphatase [enzymatic activity/vol ume] in serum or plasma 64 text: 46.0-1 16.0 Not Available Not Available 03/12/2025 05:04:58 02/01/20 25 01/31/2025 Prote in [Mass /volu me] in Serum or Plasm a protein [mass/volume ] in serum or plasma 7.5 text: 5.7-8. 2 Not Available Not Available 03/12/2025 05:04:58 02/01/20 25 01/31/2025 Lacta te dehyd rogen ase [Enzy matic activ ity/v olume ] in Serum or Plasm a lactate dehydrogenas e [enzymatic activity/vol ume] in serum or plasma 143 text: 120.0- 246.0 Not Available Not Available 03/12/2025 05:04:58 02/01/20 25 01/31/2025 Bicar bonat e [Mole s/vol ume] in Serum or Plasm a bicarbonate [moles/volum e] in serum or plasma 22 text: 20.0-3 1.0 Not Available Not Available 03/12/2025 05:04:58 02/01/20 25 01/31/2025 Album in [Mass /volu me] in Serum or Plasm a by Bromo creso l green (BCG) dye rebecca ng metho d albumin [mass/volume ] in serum or plasma by bromocresol green (bcg) dye binding method 4.3 text: 3.2-4. 8 Not Available Not Available 03/12/2025 05:04:58 02/01/20 25 01/31/2025 Creat inine [Mass /volu me] in Serum or Plasm a creatinine [mass/volume ] in serum or plasma 7.17 text: 0.7-1. 3 high Not Available Not Available 03/12/2025 05:04:58 02/01/20 25 01/31/2025 Gluco se [Mass /volu me] in Serum or Plasm a glucose [mass/volume ] in serum or plasma 384 text: 74.0-1 06.0 high Not Available Not Available 03/12/2025 05:04:58 02/01/20 25 01/31/2025 Prote in [Mass /volu me] in Serum or Plasm a protein [mass/volume ] in serum or plasma 7.5 text: 5.7-8. 2 Not Available Not Available 03/12/2025 05:04:58 02/01/20 25 01/31/2025 Alkal ine phosp hatas e [Enzy matic activ ity/v olume ] in Serum or Plasm a alkaline phosphatase [enzymatic activity/vol ume] in serum or plasma 64 text: 46.0-1 16.0 Not Available Not Available 03/12/2025 05:04:57 02/01/2001/31/2025 Album in [Mass /volu me] in Serum or Plasm a by Bromo creso l green (BCG) dye rebecca ng metho d albumin [mass/volume ] in serum or plasma by bromocresol green (bcg) dye binding method 4.3 text: 3.2-4. 8 Not Available Not Available 03/12/2025 05:04:57 02/01/20 25 01/31/2025 Bicar bonat e [Mole s/vol ume] in Serum or Plasm a bicarbonate [moles/volum e] in serum or plasma 22 text: 20.0-3 1.0 Not Available Not Available 03/12/2025 05:04:57 02/01/20 25 01/31/2025 Lacta te dehyd rogen ase [Enzy matic activ ity/v olume ] in Serum or Plasm a lactate dehydrogenas e [enzymatic activity/vol ume] in serum or plasma 143 text: 120.0- 246.0 Not Available Not Available 03/12/2025 05:04:57 02/01/20 25 01/31/2025 Hank ne amino trans feras e [Enzy matic activ ity/v olume ] in Serum or Plasm a alanine aminotransfe rase [enzymatic activity/vol ume] in serum or plasma 15 text: 10.0-4 9.0 Not Available Not Available 03/12/2025 05:04:57 02/01/20 25 01/31/2025 Creat inine [Mass /volu me] in Serum or Plasm a creatinine [mass/volume ] in serum or plasma 7.17 text: 0.7-1. 3 high Not Available Not Available 03/12/2025 05:04:57 02/01/20 25 01/31/2025 Aspar mclaughlin amino trans feras e [Enzy matic activ ity/v olume ] in Serum or Plasm a aspartate aminotransfe rase [enzymatic activity/vol ume] in serum or plasma 11 text: 0.0-33 .0 Not Available Not Available 03/12/2025 05:04:57 02/03/20 25 02/03/2025 LIPID PANEL cholesterol, total 259 mg/dL 100-19 9 above high normal Not Available [facility] ([facility]) [address] [place], [address], 02/03/2025 08:18:34 02/03/20 25 02/03/2025 LIPID PANEL triglyceride s 719 mg/dL 0-149 alert high Not Available [facility] ([facility]) [address] [place], [address], 02/03/2025 08:18:34 02/03/20 25 02/03/2025 LIPID PANEL HDL cholesterol 33 mg/dL >39 below low normal Not Available [facility] ([facility]) [address] [place], [address], 02/03/2025 08:18:34 02/03/20 25 02/03/2025 LIPID PANEL VLDL cholesterol ki 124 mg/dL 5-40 above high normal Not Available [facility] ([facility]) [address] [place], [address], 02/03/2025 08:18:34 02/03/20 25 02/03/2025 LIPID PANEL LDL chol calc ([facility]) 102 mg/dL 0-99 above high normal Not Available [facility] ([facility]) [address] [place], [address], 02/03/2025 08:18:34 02/03/20 25 02/03/2025 COMP. METAB OLIC PANEL (14) glucose 427 mg/dL 70-99 above high normal Not Available [facility] ([facility]) [address] [place], [address], 02/03/2025 08:18:35 02/03/20 25 02/03/2025 COMP. METAB OLIC PANEL (14) BUN 53 mg/dL 6-24 above high normal Not Available [facility] ([facility]) [address] [place], [address], 02/03/2025 08:18:35 02/03/20 25 02/03/2025 COMP. METAB OLIC PANEL (14) creatinine 6.49 mg/dL 0.76-1 .27 above high normal Not Available [facility] ([facility]) [address] [place], [address], 02/03/2025 08:18:35 02/03/20 25 02/03/2025 COMP. METAB OLIC PANEL (14) eGFR 10 mL/mi n/1.7 3 >59 below low normal Not Available [facility] ([facility]) [address] [place], [address], 02/03/2025 08:18:35 02/03/20 25 02/03/2025 COMP. METAB OLIC PANEL (14) BUN/creatini ne ratio 8 9-20 below low normal Not Available [facility] ([facility]) [address] [place], [address], 02/03/2025 08:18:35 02/03/20 25 02/03/2025 COMP. METAB OLIC PANEL (14) sodium 134 mmol/ L 134-14 4 Not Available [facility] ([facility]) [address] [place], [address], 02/03/2025 08:18:35 02/03/20 25 02/03/2025 COMP. METAB OLIC PANEL (14) potassium 4.4 mmol/ L 3.5-5. 2 Not Available [facility] ([facility]) [address] [place], [address], 02/03/2025 08:18:35 02/03/20 25 02/03/2025 COMP. METAB OLIC PANEL (14) chloride 90 mmol/ L 96-106 below low normal Not Available [facility] ([facility]) [address] [facility] [place], [address], 02/03/2025 08:18:35 02/03/20 25 02/03/2025 COMP. METAB OLIC PANEL (14) carbon dioxide, total 22 mmol/ L 20-29 Not Available [facility] ([facility] [address] [facility] [place] [address], 02/03/2025 08:18:35 02/03/20 25 02/03/2025 COMP. METAB OLIC PANEL (14) calcium 9.2 mg/dL 8.7-10 .2 Not Available [facility] ([facility]) [address] [place], [address], 02/03/2025 08:18:35 02/03/20 25 02/03/2025 COMP. METAB OLIC PANEL (14) protein, total 7.8 g/dL 6.0-8. 5 Not Available [facility] ([facility]) [address] [facility] [place], [address], 02/03/2025 08:18:35 02/03/20 25 02/03/2025 COMP. METAB OLIC PANEL (14) albumin 4.6 g/dL 3.8-4. 9 Not Available [facility] ([facility]) [address] [facility] [place] [place], [address], 02/03/2025 08:18:35 02/03/20 25 02/03/2025 COMP. METAB OLIC PANEL (14) globulin, total 3.2 g/dL 1.5-4. 5 Not Available [facility] ([facility]) [address] [facility] [place], [address], 02/03/2025 08:18:35 02/03/20 25 02/03/2025 COMP. METAB OLIC PANEL (14) bilirubin, total 0.2 mg/dL 0.0-1. 2 Not Available [facility] ([facility]) [address] [facility], [place], [address], 02/03/2025 08:18:35 02/03/20 25 02/03/2025 COMP. METAB OLIC PANEL (14) alkaline phosphatase 79 IU/L 44-121 Not Available [facility] ([facility]) [address] [facility], [place], [address], 02/03/2025 08:18:35 02/03/20 25 02/03/2025 COMP. METAB OLIC PANEL (14) AST (SGOT) 11 IU/L 0-40 Not Available [facility] ([facility]) [address] [facility], [place], [address], 02/03/2025 08:18:35 02/03/20 25 02/03/2025 COMP. METAB OLIC PANEL (14) ALT (SGPT) 13 IU/L 0-44 Not Available [facility] ([facility]) [address] [facility], [place], [address], 02/03/2025 08:18:35 02/03/20 25 02/03/2025 HEMOG LOBIN A1C hemoglobin A1C 15.0 % 4.8-5. 6 above high normal Predi abete s: 5.7 - 6.4 Diabe ana paula: >6.4 Glyce pallavi contr ol for adult s with diabe ana paula: <7.0 Not Available [facility] ([facility]) [address] [place], [address], 02/03/2025 08:18:36 02/03/20 25 02/03/2025 CBC WITH DIFFE RENTI AL/PL ATELE T WBC 7.3 x10e3 /uL 3.4-10 .8 Not Available [facility] ([facility]) [address] [facility], [place], [address], 02/03/2025 08:18:36 02/03/20 25 02/03/2025 CBC WITH DIFFE RENTI AL/PL ATELE T RBC 3.93 x10e6 /uL 4.14-5 .80 below low normal Not Available [facility] ([facility]) [address] [place], [address], 02/03/2025 08:18:36 02/03/2002/03/2025 CBC WITH DIFFE RENTI AL/PL ATELE T hemoglobin 10.6 g/dL 13.0-1 7.7 below low normal Not Available [facility] ([facility]) [address] [place], [address], 02/03/2025 08:18:36 02/03/2002/03/2025 CBC WITH DIFFE RENTI AL/PL ATELE T hematocrit 33.8 % 37.5-5 1.0 below low normal Not Available [facility] ([facility]) [address] [place], [address], 02/03/2025 08:18:36 02/03/2002/03/2025 CBC WITH DIFFE RENTI AL/PL ATELE T MCV 86 fL 79-97 Not Available [facility] ([facility]) [address] [place], [address], 02/03/2025 08:18:36 02/03/2002/03/2025 CBC WITH DIFFE RENTI AL/PL ATELE T MCH 27.0 pg 26.6-3 3.0 Not Available [facility] ([facility]) [address] [place], [address], 02/03/2025 08:18:36 02/03/2002/03/2025 CBC WITH DIFFE RENTI AL/PL ATELE T MCHC 31.4 g/dL 31.5-3 5.7 below low normal Not Available [facility] ([facility]) [address] [place], [address], 02/03/2025 08:18:36 02/03/2002/03/2025 CBC WITH DIFFE RENTI AL/PL ATELE T RDW 15.4 % 11.6-1 5.4 Not Available [facility] ([facility]) [address] [facility], [place], [address], 02/03/2025 08:18:36 02/03/20 25 02/03/2025 CBC WITH DIFFE RENTI AL/PL ATELE T platelets 236 x10e3 /uL 150-45 0 Not Available [facility] ([facility]) [address] [facility], [place], [address], 02/03/2025 08:18:36 02/03/20 25 02/03/2025 CBC WITH DIFFE RENTI AL/PL ATELE T neutrophils 69 % notest ab. Not Available [facility] ([facility]) [address] [facility], [place], [address], 02/03/2025 08:18:36 02/03/20 25 02/03/2025 CBC WITH DIFFE RENTI AL/PL ATELE T lymphs 21 % notest ab. Not Available [facility] ([facility]) [address] [facility], [place], [address], 02/03/2025 08:18:36 02/03/20 25 02/03/2025 CBC WITH DIFFE RENTI AL/PL ATELE T monocytes 7 % notest ab. Not Available [facility] ([facility]) [address] [facility], [place], [address], 02/03/2025 08:18:36 02/03/20 25 02/03/2025 CBC WITH DIFFE RENTI AL/PL ATELE T eos 1 % notest ab. Not Available [facility] ([facility]) [address] [facility], [place], [address], 02/03/2025 08:18:36 02/03/20 25 02/03/2025 CBC WITH DIFFE RENTI AL/PL ATELE T basos 1 % notest ab. Not Available [facility] ([facility]) [address] [facility], [place], [address], 02/03/2025 08:18:36 02/03/20 25 02/03/2025 CBC WITH DIFFE RENTI AL/PL ATELE T neutrophils (absolute) 5.2 x10e3 /uL 1.4-7. 0 Not Available [facility] ([facility]) [address] [facility], [place], [address], 02/03/2025 08:18:36 02/03/20 25 02/03/2025 CBC WITH DIFFE RENTI AL/PL ATELE T lymphs (absolute) 1.5 x10e3 /uL 0.7-3. 1 Not Available [facility] ([facility]) [address] [facility], [place], [address], 02/03/2025 08:18:36 02/03/20 25 02/03/2025 CBC WITH DIFFE RENTI AL/PL ATELE T monocytes(ab solute) 0.5 x10e3 /uL 0.1-0. 9 Not Available [facility] ([facility]) [address] [facility], [place], [address], 02/03/2025 08:18:36 02/03/20 25 02/03/2025 CBC WITH DIFFE RENTI AL/PL ATELE T eos (absolute) 0.0 x10e3 /uL 0.0-0. 4 Not Available [facility] ([facility]) [address] [place], [address], 02/03/2025 08:18:36 02/03/20 25 02/03/2025 CBC WITH DIFFE RENTI AL/PL ATELE T baso (absolute) 0.0 x10e3 /uL 0.0-0. 2 Not Available [facility] ([facility]) [address] [place], [address], 02/03/2025 08:18:36 02/03/20 25 02/03/2025 CBC WITH DIFFE RENTI AL/PL ATELE T immature granulocytes 1 % notest ab. Not Available [facility] ([facility]) [address] [facility], [place], [address], 02/03/2025 08:18:36 02/03/20 25 02/03/2025 CBC WITH DIFFE RENTI AL/PL ATELE T immature grans (abs) 0.0 x10e3 /uL 0.0-0. 1 Not Available [facility] ([facility]) [address] [facility], [place], [address], 02/03/2025 08:18:36 02/17/20 25 02/16/2025 Calci um [Mass /volu me] in Serum or Plasm a calcium [mass/volume ] in serum or plasma 8.6 text: 8.7-10 .4 low Not Available Not Available 03/12/2025 05:04:55 02/17/20 25 02/16/2025 Calci um [Mass /volu me] in Serum or Plasm a calcium [mass/volume ] in serum or plasma 8.6 text: 8.7-10 .4 low Not Available Not Available 03/12/2025 05:04:55 02/17/20 25 02/16/[address] [Mass /volu me] in Serum or Plasm a parathyrin.i ntact [mass/volume ] in serum or plasma 488 text: 18.0-8 0.0 high Not Available Not Available 03/12/2025 05:04:55 02/17/20 25 02/16/[address] [Mass /volu me] in Serum or Plasm a parathyrin.i ntact [mass/volume ] in serum or plasma 488 text: 18.0-8 0.0 high Not Available Not Available 03/12/2025 05:04:55 02/17/20 25 02/16/2025 Urea nitro gen [Mass /volu me] in Serum or Plasm a urea nitrogen [mass/volume ] in serum or plasma 70 text: 9.0-23 .0 high Not Available Not Available 03/12/2025 05:04:55 02/17/2002/16/2025 Phosp hate [Mass /volu me] in Serum or Plasm a phosphate [mass/volume ] in serum or plasma 5.7 text: 2.4-5. 1 high Not Available Not Available 03/12/2025 05:04:55 02/17/20 25 02/16/2025 Urea nitro gen [Mass /volu me] in Serum or Plasm a urea nitrogen [mass/volume ] in serum or plasma 70 text: 9.0-23 .0 high Not Available Not Available 03/12/2025 05:04:55 02/17/20 25 02/16/2025 Phosp hate [Mass /volu me] in Serum or Plasm a phosphate [mass/volume ] in serum or plasma 5.7 text: 2.4-5. 1 high Not Available Not Available 03/12/2025 05:04:55 02/17/20 25 02/16/2025 Urea nitro gen [Mass /volu me] in Serum or Plasm a --pos t dialy sis urea nitrogen [mass/volume ] in serum or plasma --post dialysis 27 text: 9.0-23 .0 high Not Available Not Available 03/12/2025 05:04:55 02/17/20 25 02/16/2025 Urea nitro gen [Mass /volu me] in Serum or Plasm a --pos t dialy sis urea nitrogen [mass/volume ] in serum or plasma --post dialysis 27 text: 9.0-23 .0 high Not Available Not Available 03/12/2025 05:04:55 02/17/2002/16/2025 Hemog lobin [Mass /volu me] in Blood hemoglobin [mass/volume ] in blood 10 text: 14.0-1 8.0 low Not Available Not Available 03/12/2025 05:04:55 02/17/20 25 02/16/2025 Hemog lobin [Mass /volu me] in Blood hemoglobin [mass/volume ] in blood 10 text: 14.0-1 8.0 low Not Available Not Available 03/12/2025 05:04:55 02/24/20 25 02/23/2025 Hemog lobin A1c/H emogl obin. total in Blood hemoglobin A1C, POC 13.5 % low: 4%high : 5.6% abnormal Not Available Not Available 03/12/2025 05:04:18 02/24/2002/23/2025 Hemog lobin A1c/H emogl obin. total in Blood interpretati on and review of laboratory results Abnorm al Not Available Not Available 05:04:18 02/29/20 25 02/28/2025 Urea nitro gen [Mass /volu me] in Serum or Plasm a --pos t dialy sis urea nitrogen [mass/volume ] in serum or plasma --post dialysis 26 text: 9.0-23 .0 high Not Available Not Available 03/12/2025 05:04:54 02/29/2002/28/2025 Urea nitro gen [Mass /volu me] in Serum or Plasm a urea nitrogen [mass/volume ] in serum or plasma 83 text: 9.0-23 .0 high Not Available Not Available 03/12/2025 05:04:55 03/02/2003/02/2025 Sodiu m [Mole s/vol ume] in Serum or Plasm a sodium [moles/volum e] in serum or plasma 141 text: 136.0- 145.0 Not Available Not Available 03/12/2025 05:04:53 03/02/2003/02/2025 Potas sium [Mole s/vol ume] in Serum or Plasm a potassium [moles/volum e] in serum or plasma 4 text: 3.5-5. 1 Not Available Not Available 03/12/2025 05:04:53 03/02/2003/02/2025 Chlor sofi [Mole s/vol ume] in Serum or Plasm a chloride [moles/volum e] in serum or plasma 100 text: 98.0-1 07.0 Not Available Not Available 03/12/2025 05:04:53 03/02/2003/02/2025 Iron [Mass /volu me] in Serum or Plasm a iron [mass/volume ] in serum or plasma 60 text: 65.0-1 75.0 low Not Available Not Available 03/12/2025 05:04:53 03/02/20 25 03/02/2025 Iron rebecca ng capac ity.u nsatu rated [Mass /volu me] in Serum or Plasm a iron binding capacity.uns aturated [mass/volume ] in serum or plasma 171 text: 75.0-3 60.0 Not Available Not Available 03/12/2025 05:04:53 03/02/20 25 03/02/2025 Juan Carlos tin [Mass /volu me] in Serum or Plasm a ferritin [mass/volume ] in serum or plasma 949 text: 22.0-3 22.0 high Not Available Not Available 03/12/2025 05:04:53 03/02/2003/02/2025 Eosin ophil s [#/vo lume] in Blood by Autom ated count eosinophils [#/volume] in blood by automated count 105 text: 0.0-70 0.0 Not Available Not Available 03/12/2025 05:04:53 03/02/2003/02/2025 MCV [Enti tic mean volum e] in Red Blood Cells by Autom ated count MCV [entitic mean volume] in red blood cells by automated count 85.4 text: 80.0-1 00.0 Not Available Not Available 03/12/2025 05:04:53 03/02/2003/02/2025 Plate lets [#/vo lume] in Blood by Autom ated count platelets [#/volume] in blood by automated count 218 text: 140.0- 450.0 Not Available Not Available 03/12/2025 05:04:54 03/02/2003/02/2025 Hemat ocrit [Volu me Fract ion] of Blood by Autom ated count hematocrit [volume fraction] of blood by automated count 34.1 text: 41.0-5 3.0 low Not Available Not Available 03/12/2025 05:04:54 03/02/2003/02/2025 Leuko cytes [#/vo lume] in Blood by Autom ated count leukocytes [#/volume] in blood by automated count 7.5 text: 4.0-11 .0 Not Available Not Available 03/12/2025 05:04:54 03/02/20 25 03/02/2025 Hemog lobin [Mass /volu me] in Blood hemoglobin [mass/volume ] in blood 11 text: 14.0-1 8.0 low Not Available Not Available 03/12/2025 05:04:54 03/02/20 25 03/02/2025 Eryth rocyt es [#/vo lume] in Blood by Autom ated count erythrocytes [#/volume] in blood by automated count 4 text: 4.6-6. 2 low Not Available Not Available 03/12/2025 05:04:54 03/02/20 25 03/02/2025 Lacta te dehyd rogen ase [Enzy matic activ ity/v olume ] in Serum or Plasm a lactate dehydrogenas e [enzymatic activity/vol ume] in serum or plasma 141 text: 120.0- 246.0 Not Available Not Available 03/12/2025 05:04:54 03/02/20 25 03/02/2025 Aspar mclaughlin amino trans feras e [Enzy matic activ ity/v olume ] in Serum or Plasm a aspartate aminotransfe rase [enzymatic activity/vol ume] in serum or plasma 14 text: 0.0-33 .0 Not Available Not Available 03/12/2025 05:04:54 03/02/20 25 03/02/2025 Prote in [Mass /volu me] in Serum or Plasm a protein [mass/volume ] in serum or plasma 7.4 text: 5.7-8. 2 Not Available Not Available 03/12/2025 05:04:54 03/02/20 25 03/02/2025 Hank ne amino trans feras e [Enzy matic activ ity/v olume ] in Serum or Plasm a alanine aminotransfe rase [enzymatic activity/vol ume] in serum or plasma 14 text: 10.0-4 9.0 Not Available Not Available 03/12/2025 05:04:54 03/02/20 25 03/02/2025 Gluco se [Mass /volu me] in Serum or Plasm a glucose [mass/volume ] in serum or plasma 285 text: 74.0-1 06.0 high Not Available Not Available 03/12/2025 05:04:54 03/02/20 25 03/02/2025 Creat inine [Mass /volu me] in Serum or Plasm a creatinine [mass/volume ] in serum or plasma 7.9 text: 0.7-1. 3 high Not Available Not Available 03/12/2025 05:04:54 03/02/20 25 03/02/2025 Album in [Mass /volu me] in Serum or Plasm a by Bromo creso l green (BCG) dye rebecca ng metho d albumin [mass/volume ] in serum or plasma by bromocresol green (bcg) dye binding method 4.5 text: 3.2-4. 8 Not Available Not Available 03/12/2025 05:04:54 03/02/20 25 03/02/2025 Bicar bonat e [Mole s/vol ume] in Serum or Plasm a bicarbonate [moles/volum e] in serum or plasma 22 text: 20.0-3 1.0 Not Available Not Available 03/12/2025 05:04:54 03/02/20 25 03/02/2025 Alkal ine phosp hatas e [Enzy matic activ ity/v olume ] in Serum or Plasm a alkaline phosphatase [enzymatic activity/vol ume] in serum or plasma 67 text: 46.0-1 16.0 Not Available Not Available 03/12/2025 05:04:54 03/16/20 25 03/16/[address] [Mass /volu me] in Serum or Plasm a parathyrin.i ntact [mass/volume ] in serum or plasma 304 text: 18.0-8 0.0 high Not Available Not Available 04/09/2025 13:54:28 03/16/20 25 03/16/2025 Hemog lobin [Mass /volu me] in Blood hemoglobin [mass/volume ] in blood 10.6 text: 14.0-1 8.0 low Not Available Not Available 04/09/2025 13:54:28 03/16/20 25 03/16/2025 Urea nitro gen [Mass /volu me] in Serum or Plasm a --pos t dialy sis urea nitrogen [mass/volume ] in serum or plasma --post dialysis 21 text: 9.0-23 .0 Not Available Not Available 04/09/2025 13:54:28 03/16/20 25 03/16/2025 Urea nitro gen [Mass /volu me] in Serum or Plasm a urea nitrogen [mass/volume ] in serum or plasma 67 text: 9.0-23 .0 high Not Available Not Available 04/09/2025 13:54:28 03/16/20 25 03/16/2025 Phosp hate [Mass /volu me] in Serum or Plasm a phosphate [mass/volume ] in serum or plasma 6.4 text: 2.4-5. 1 high Not Available Not Available 04/09/2025 13:54:28 03/17/20 25 03/17/2025 Calci um [Mass /volu me] in Serum or Plasm a calcium [mass/volume ] in serum or plasma 9.2 text: 8.7-10 .4 Not Available Not Available 04/09/2025 13:54:28 03/30/20 25 03/30/2025 Juan Carlos tin [Mass /volu me] in Serum or Plasm a ferritin [mass/volume ] in serum or plasma 595 text: 22.0-3 22.0 high Not Available Not Available 04/09/2025 13:54:27 03/30/20 25 03/30/2025 Gluco se [Mass /volu me] in Serum or Plasm a glucose [mass/volume ] in serum or plasma 265 text: 74.0-1 06.0 high Not Available Not Available 04/09/2025 13:54:28 03/30/20 25 03/30/2025 Prote in [Mass /volu me] in Serum or Plasm a protein [mass/volume ] in serum or plasma 7.1 text: 5.7-8. 2 Not Available Not Available 04/09/2025 13:54:28 03/30/20 25 03/30/2025 Alkal ine phosp hatas e [Enzy matic activ ity/v olume ] in Serum or Plasm a alkaline phosphatase [enzymatic activity/vol ume] in serum or plasma 59 text: 46.0-1 16.0 Not Available Not Available 04/09/2025 13:54:28 03/30/20 25 03/30/2025 Album in [Mass /volu me] in Serum or Plasm a by Bromo creso l green (BCG) dye rebecca ng metho d albumin [mass/volume ] in serum or plasma by bromocresol green (bcg) dye binding method 4.3 text: 3.2-4. 8 Not Available Not Available 04/09/2025 13:54:27 03/30/20 25 03/30/2025 Bicar bonat e [Mole s/vol ume] in Serum or Plasm a bicarbonate [moles/volum e] in serum or plasma 26 text: 20.0-3 1.0 Not Available Not Available 04/09/2025 13:54:27 03/30/20 25 03/30/2025 Lacta te dehyd rogen ase [Enzy matic activ ity/v olume ] in Serum or Plasm a lactate dehydrogenas e [enzymatic activity/vol ume] in serum or plasma 146 text: 120.0- 246.0 Not Available Not Available 04/09/2025 13:54:27 03/30/20 25 03/30/2025 Hank ne amino trans feras e [Enzy matic activ ity/v olume ] in Serum or Plasm a alanine aminotransfe rase [enzymatic activity/vol ume] in serum or plasma 13 text: 10.0-4 9.0 Not Available Not Available 04/09/2025 13:54:27 03/30/20 25 03/30/2025 Creat inine [Mass /volu me] in Serum or Plasm a creatinine [mass/volume ] in serum or plasma 7.17 text: 0.7-1. 3 high Not Available Not Available 04/09/2025 13:54:27 03/30/20 25 03/30/2025 Aspar mclaughlin amino trans feras e [Enzy matic activ ity/v olume ] in Serum or Plasm a aspartate aminotransfe rase [enzymatic activity/vol ume] in serum or plasma 8 text: 0.0-33 .0 Not Available Not Available 04/09/2025 13:54:27 03/30/20 25 03/30/2025 MCV [Enti tic mean volum e] in Red Blood Cells by Autom ated count MCV [entitic mean volume] in red blood cells by automated count 86 text: 80.0-1 00.0 Not Available Not Available 04/09/2025 13:54:28 03/30/20 25 03/30/2025 Hemat ocrit [Volu me Fract ion] of Blood by Autom ated count hematocrit [volume fraction] of blood by automated count 36.2 text: 41.0-5 3.0 low Not Available Not Available 04/09/2025 13:54:28 03/30/20 25 03/30/2025 Eryth rocyt es [#/vo lume] in Blood by Autom ated count erythrocytes [#/volume] in blood by automated count 4.22 text: 4.6-6. 2 low Not Available Not Available 04/09/2025 13:54:28 03/30/20 25 03/30/2025 Leuko cytes [#/vo lume] in Blood by Autom ated count leukocytes [#/volume] in blood by automated count 7.2 text: 4.0-11 .0 Not Available Not Available 04/09/2025 13:54:28 03/30/20 25 03/30/2025 Plate lets [#/vo lume] in Blood by Autom ated count platelets [#/volume] in blood by automated count 202 text: 140.0- 450.0 Not Available Not Available 04/09/2025 13:54:28 03/30/20 25 03/30/2025 Hemog lobin [Mass /volu me] in Blood hemoglobin [mass/volume ] in blood 11.5 text: 14.0-1 8.0 low Not Available Not Available 04/09/2025 13:54:28 03/30/2003/30/2025 Eosin ophil s [#/vo lume] in Blood by Autom ated count eosinophils [#/volume] in blood by automated count 130 text: 0.0-70 0.0 Not Available Not Available 04/09/2025 13:54:28 03/31/20 25 03/31/2025 Iron [Mass /volu me] in Serum or Plasm a iron [mass/volume ] in serum or plasma 54 text: 65.0-1 75.0 low Not Available Not Available 04/09/2025 13:54:27 03/31/20 25 03/31/2025 Chlor sofi [Mole s/vol ume] in Serum or Plasm a chloride [moles/volum e] in serum or plasma 99 text: 98.0-1 07.0 Not Available Not Available 04/09/2025 13:54:27 03/31/20 25 03/31/2025 Iron rebecca ng capac ity.u nsatu rated [Mass /volu me] in Serum or Plasm a iron binding capacity.uns aturated [mass/volume ] in serum or plasma 173 text: 75.0-3 60.0 Not Available Not Available 04/09/2025 13:54:27 03/31/20 25 03/31/2025 Potas sium [Mole s/vol ume] in Serum or Plasm a potassium [moles/volum e] in serum or plasma 4.2 text: 3.5-5. 1 Not Available Not Available 04/09/2025 13:54:27 03/31/20 25 03/31/2025 Sodiu m [Mole s/vol ume] in Serum or Plasm a sodium [moles/volum e] in serum or plasma 141 text: 136.0- 145.0 Not Available Not Available 04/09/2025 13:54:27 04/06/20 25 04/06/2025 Hemog lobin A1c/H emogl obin. total in Blood hemoglobin A1C, POC 11.9 % low: 4%high : 5.6% abnormal Not Available Not Available 04/09/2025 13:53:50 04/06/20 25 04/06/2025 Hemog lobin A1c/H emogl obin. total in Blood interpretati on and review of laboratory results Abnorm al Not Available Not Available 13:53:50 04/13/2004/13/2025 hemog lobin (Hb), blood hemoglobin (Hb), blood 11.1 text: 14.0-1 8.0 low Not Available Not Available 05/22/2025 16:40:42 04/13/20 25 04/13/2025 PTH (para thyro id hormo ne), intac t, serum or plasm a PTH (parathyroid hormone), intact, serum or plasma 461 text: 18.0-8 0.0 high Not Available Not Available 05/22/2025 16:40:42 04/14/20 25 04/14/2025 calci um, serum or plasm a calcium, serum or plasma 8.2 text: 8.7-10 .4 low Not Available Not Available 05/22/2025 16:40:41 04/14/20 25 04/14/2025 phosp horus , serum or plasm a phosphorus, serum or plasma 6.6 text: 2.4-5. 1 high Not Available Not Available 05/22/2025 16:40:42 04/14/20 25 04/14/2025 bun (bloo d urea nitro gen), serum or plasm a BUN (blood urea nitrogen), serum or plasma 65 text: 9.0-23 .0 high Not Available Not Available 05/22/2025 16:40:41 04/14/20 25 04/14/2025 BUN, post- dialy sis, serum BUN, post-dialysi s, serum 20 text: 9.0-23 .0 Not Available Not Available 05/22/2025 16:40:42 04/27/20 25 04/27/2025 prote in, total , serum protein, total, serum 7.5 text: 5.7-8. 2 Not Available Not Available 05/22/2025 16:40:41 04/27/20 25 04/27/2025 AST/S GOT (aspa rtate amino trans feras e), serum or plasm a AST/SGOT (aspartate aminotransfe rase), serum or plasma 13 text: 0.0-33 .0 Not Available Not Available 05/22/2025 16:40:41 04/27/20 25 04/27/2025 Lacta te dehyd rogen ase [Enzy matic activ ity/v olume ] in Serum or Plasm a lactate dehydrogenas e [enzymatic activity/vol ume] in serum or plasma 147 text: 120.0- 246.0 Not Available Not Available 05/22/2025 16:40:41 04/27/20 25 04/27/2025 ALT (omayra ine amino trans feras e), serum or plasm a ALT (alanine aminotransfe rase), serum or plasma 12 text: 10.0-4 9.0 Not Available Not Available 05/22/2025 16:40:41 04/27/20 25 04/27/2025 bicar bonat e, quant , serum bicarbonate, quant, serum 22 text: 20.0-3 1.0 Not Available Not Available 05/22/2025 16:40:41 04/27/20 25 04/27/2025 gluco se, QN [mass /volu me], serum or plasm a glucose, qn [mass/volume ], serum or plasma 254 text: 74.0-1 06.0 high Not Available Not Available 05/22/2025 16:40:40 04/27/20 25 04/27/2025 creat inine , serum or plasm a creatinine, serum or plasma 8.6 text: 0.7-1. 3 high Not Available Not Available 05/22/2025 16:40:40 04/27/20 25 04/27/2025 album in, QN, BCG dye, serum or plasm a albumin, qn, bcg dye, serum or plasma 4.3 text: 3.2-4. 8 Not Available Not Available 05/22/2025 16:40:40 04/27/20 25 04/27/2025 alkal ine phosp hatas e, serum or plasm a alkaline phosphatase, serum or plasma 55 text: 46.0-1 16.0 Not Available Not Available 05/22/2025 16:40:40 04/27/2004/27/2025 eosin ophil s, auto, blood , absol tangirnaq eosinophils, auto, blood, absolute 107 text: 0.0-70 0.0 Not Available Not Available 05/22/2025 16:40:41 04/27/2004/27/2025 plate lets, auto, blood platelets, auto, blood 227 text: 140.0- 450.0 Not Available Not Available 05/22/2025 16:40:41 04/27/20 25 04/27/2025 hemog lobin (Hb), blood hemoglobin (Hb), blood 11.5 text: 14.0-1 8.0 low Not Available Not Available 05/22/2025 16:40:41 04/27/20 25 04/27/2025 mcv, blood MCV, blood 88 text: 80.0-1 00.0 Not Available Not Available 05/22/2025 16:40:41 04/27/20 25 04/27/2025 RBC count , blood RBC count, blood 4.32 text: 4.6-6. 2 low Not Available Not Available 05/22/2025 16:40:41 04/27/20 25 04/27/2025 hemat ocrit , autom ated count , blood hematocrit, automated count, blood 38 text: 41.0-5 3.0 low Not Available Not Available 05/22/2025 16:40:41 04/27/20 25 04/27/2025 wbc, auto, blood WBC, auto, blood 8.3 text: 4.0-11 .0 Not Available Not Available 05/22/2025 16:40:41 04/28/20 25 04/28/2025 sodiu m, serum or plasm a sodium, serum or plasma 142 text: 136.0- 145.0 Not Available Not Available 05/22/2025 16:40:40 04/28/20 25 04/28/2025 potas sium, serum or plasm a potassium, serum or plasma 3.9 text: 3.5-5. 1 Not Available Not Available 05/22/2025 16:40:40 04/28/20 25 04/28/2025 chlor sofi, serum or plasm a chloride, serum or plasma 103 text: 98.0-1 07.0 Not Available Not Available 05/22/2025 16:40:39 05/18/20 25 05/18/2025 calci um, serum or plasm a calcium, serum or plasma 8.9 text: 8.7-10 .4 Not Available Not Available 05/22/2025 16:40:39 05/18/2005/18/2025 BUN, post- dialy sis, serum BUN, post-dialysi s, serum 22 text: 9.0-23 .0 Not Available Not Available 05/22/2025 16:40:39 05/18/20 25 05/18/2025 PTH (para thyro id hormo ne), intac t, serum or plasm a PTH (parathyroid hormone), intact, serum or plasma 256 text: 18.0-8 0.0 high Not Available Not Available 05/22/2025 16:40:39 05/18/20 25 05/18/2025 hemog lobin (Hb), blood hemoglobin (Hb), blood 11.2 text: 14.0-1 8.0 low Not Available Not Available 05/22/2025 16:40:39 05/18/20 25 05/18/2025 phosp horus , serum or plasm a phosphorus, serum or plasma 6.4 text: 2.4-5. 1 high Not Available Not Available 05/22/2025 16:40:39 05/18/2005/18/2025 bun (bloo d urea nitro gen), serum or plasm a BUN (blood urea nitrogen), serum or plasma 61 text: 9.0-23 .0 high Not Available Not Available 05/22/2025 16:40:39 06/06/2006/06/2025 sodiu m, serum or plasm a sodium, serum or plasma 144 text: 136.0- 145.0 Not Available Not Available 06/11/2025 08:59:54 06/06/2006/06/2025 potas sium, serum or plasm a potassium, serum or plasma 4.1 text: 3.5-5. 1 Not Available Not Available 06/11/2025 08:59:54 06/06/2006/06/2025 chlor sofi, serum or plasm a chloride, serum or plasma 101 text: 98.0-1 07.0 Not Available Not Available 06/11/2025 08:59:54 06/06/2006/06/2025 prote in, total , serum protein, total, serum 7 text: 5.7-8. 2 Not Available Not Available 06/11/2025 08:59:55 06/06/2006/06/2025 AST/S GOT (aspa rtate amino trans feras e), serum or plasm a AST/SGOT (aspartate aminotransfe rase), serum or plasma 98 text: 0.0-33 .0 high Not Available Not Available 06/11/2025 08:59:55 06/06/2006/06/2025 Lacta te dehyd rogen ase [Enzy matic activ ity/v olume ] in Serum or Plasm a lactate dehydrogenas e [enzymatic activity/vol ume] in serum or plasma 274 text: 120.0- 246.0 high Not Available Not Available 06/11/2025 08:59:54 06/06/20 25 06/06/2025 ALT (omayra ine amino trans feras e), serum or plasm a ALT (alanine aminotransfe rase), serum or plasma 83 text: 10.0-4 9.0 high Not Available Not Available 06/11/2025 08:59:54 06/06/2006/06/2025 gluco se, QN [mass /volu me], serum or plasm a glucose, qn [mass/volume ], serum or plasma 145 text: 74.0-1 06.0 high Not Available Not Available 06/11/2025 08:59:54 06/06/2006/06/2025 creat inine , serum or plasm a creatinine, serum or plasma 12.02 text: 0.7-1. 3 high Not Available Not Available 06/11/2025 08:59:54 06/06/2006/06/2025 bicar bonat e, quant , serum bicarbonate, quant, serum 22 text: 20.0-3 1.0 Not Available Not Available 06/11/2025 08:59:54 06/06/2006/06/2025 album in, QN, BCG dye, serum or plasm a albumin, qn, bcg dye, serum or plasma 3.9 text: 3.2-4. 8 Not Available Not Available 06/11/2025 08:59:54 06/06/2006/06/2025 alkal ine phosp hatas e, serum or plasm a alkaline phosphatase, serum or plasma 55 text: 46.0-1 16.0 Not Available Not Available 06/11/2025 08:59:54 06/06/2006/06/2025 eosin ophil s, auto, blood , absol tangirnaq eosinophils, auto, blood, absolute 217 text: 0.0-70 0.0 Not Available Not Available 06/11/2025 08:59:55 06/06/2006/06/2025 plate lets, auto, blood platelets, auto, blood 369 text: 140.0- 450.0 Not Available Not Available 06/11/2025 08:59:55 06/06/2006/06/2025 mcv, blood MCV, blood 83.4 text: 80.0-1 00.0 Not Available Not Available 06/11/2025 08:59:55 06/06/2006/06/2025 hemog lobin (Hb), blood hemoglobin (Hb), blood 9.9 text: 14.0-1 8.0 low Not Available Not Available 06/11/2025 08:59:55 06/06/20 25 06/06/2025 hemat ocrit , autom ated count , blood hematocrit, automated count, blood 31.4 text: 41.0-5 3.0 low Not Available Not Available 06/11/2025 08:59:55 06/06/20 25 06/06/2025 RBC count , blood RBC count, blood 3.77 text: 4.6-6. 2 low Not Available Not Available 06/11/2025 08:59:55 06/06/20 25 06/06/2025 wbc, auto, blood WBC, auto, blood 10.8 text: 4.0-11 .0 Not Available Not Available 06/11/2025 08:59:55 05/27/2005/27/2025 CT, abdom en + pelvi s, w/ contr ast No observ ation record ed. [place] [id number], [place], [address], 05/28/2025 10:57:11 Result Notes None recorded. Problems Name Problem SNOMED Code Status Onset Date Resolution Date Notes Provider Name and Address Organization Details Recorded Time [employer] About Us n 70037797 Active 2024 Marty Contreras [place] null, [place] - [facility] 5 16:00:56 Diabetes mellitus 85659581 Active 2024 Marty Contreras [place], [place] [facility] 16:00:57 Obese class I 2076830611890 07 Active 2024 Marty Contreras [place], [place] [facility] 5 16:02:08 Dependence on renal dialysis 529666645 Active 2024 Thomas Brewer MD Attn: Lenore gatica,[address] [facility], [place], [address], [place] - [facility] 5 13:54:38 Mixed hyperlipide criselda 668746178 Active 2024 Thomas Brewer MD Attn: Lenore gatica,[address] [place], [address], [place] [facility] 13:55:15 Problem Notes None recorded. Procedures Surgical History Date Name Laterality Status Provider Name and Address Organization Details Recorded Time 08/09/2019 repair of retina completed Garrison Carmen MA [facility] 02/02/2025 15:10:46 Imaging Results None recorded. Procedure Notes None recorded. Medical Equipment None Reported. Medications Name Sig Start Date Stop Date Status Note LastModified by Organization Details LastModified Time atorvastati n 20 mg tablet TAKE 1 TABLET BY MOUTH ONCE DAILY active Not Available Not Available No t Available clindamycin HCl 300 mg capsule Take 1 capsule 3 times a day by oral route for 10 days. 06/09 completed Not Available Not Available Not Available lisinopril 20 mg tablet Take 1 tablet every day by oral route. active Not Available Not Available No t Available furosemide 80 mg tablet TAKE 1 TABLET BY MOUTH ONCE DAILY active Not Available Not Available No t Available amoxicillin 500 mg-potassiu m clavulanate 125 mg tablet TAKE 1 TABLET BY MOUTH IN THE EVENING FOR 10 DAYS active Not Available Not Available No t Available insulin aspart (U-100) 100 unit/mL (3 mL) subcutaneou s pen INJECT 10 TO 20 UNITS SUBCUTANE OUSLY THREE TIMES DAILY WITH MEALS active Not Available Not Available No t Available Lantus Solostar U-100 Insulin 100 unit/mL (3 mL) subcutaneou s pen Inject 25 units every day by subcutane ous route. 06/11 completed Not Available Not Available Not Available pen needle, diabetic 32 gauge x 5/32 USE 1 PEN NEEDLE SUBCUTANE OUSLY 4 TIMES DAILY active Not Available Not Available No t Available insulin glargine-yf gn (U-100) 100 unit/mL (3 mL) subcutaneou s pen INJECT 25 UNITS SUBCUTANE OUSLY ONCE DAILY active Not Available Not Available No t Available Vitals Date Recorded Body weight Body mass index (BMI) Body height Heart rate Oxygen saturation Oxygen saturation in Arterial blood by Pulse oximetry Systolic And Diastolic Provider Name and Address Organization Details Last Updated DateTime 5 768412. 92 g 32.3 kg/m2 187.96 cm 96 /min 98 % 98 % 160/90 mm[Hg] Garrison Carmen MA [facility] 5 15:16:44 Date Recorded Body height Body mass index (BMI) Body weight Heart rate Oxygen saturation Oxygen saturation in Arterial blood by Pulse oximetry Systolic And Diastolic Provider Name and Address Organization Details Last Updated DateTime 5 187.96 cm 33.2 kg/m2 734311. 27 g 79 /min 96 % 96 % 142/70 mm[Hg] Kamla Betancourt MA [facility] 5 16:15:33 Date Recorded Body height Body mass index (BMI) Body weight Heart rate Oxygen saturation Oxygen saturation in Arterial blood by Pulse oximetry Systolic And Diastolic Provider Name and Address Organization Details Last Updated DateTime 187.96 cm 32.2 kg/m2 990675. 68 g 80 /min 98 % 98 % 140/70 mm[Hg] Garrison Carmen MA [facility] 5 10:05:27 Date Recorded Body height Body mass index (BMI) Body weight Heart rate Oxygen saturation Oxygen saturation in Arterial blood by Pulse oximetry Systolic And Diastolic Provider Name and Address Organization Details Last Updated DateTime 187.96 cm 32.3 kg/m2 018017. 92 g 80 /min 97 % 97 % 140/70 mm[Hg] Krystal Acosta MA [facility] 10:10:22 Social History Question Answer Notes LastModified by Organizat ion Details LastModified Time Tobacco Smoking Status Never Smoker [facility] 02/02/2025 15:08:00 Do You Have An Advance Directive? No Information n ot available 02/02/2025 Are You Blind Or Do You Have Difficulty Seeing? No Information n ot available 02/02/2025 What Is Your Level Of Caffeine Consumption? None Information not available 02/02/2025 In The 14 Days Before Symptom Onset, Have You Had Close Contact With A Laboratory-confirm ed COVID-19 While That Case Was Ill? No Information n ot available 06/11/2025 In The 14 Days Before Symptom Onset, Have You Had Close Contact With A Person Who Is Under Investigation For COVID-19 While That Person Was Ill? No Information not available 06/11/2025 Have You Been To An Area Known To Be High Risk For COVID-19? No Information not available 06/11/2025 Are You Deaf Or Do You Have Serious Difficulty Hearing? Yes Information not available 02/02/2025 What Type Of Diet Are You Following? REGULAR Information n ot available 02/02/2025 Are There Any Guns Present In Your Home? No Information not available 02/02/2025 What Was The Date Of Your Most Recent Tobacco Screening? 06/11/2025 Information not available 06/11/2025 What Is Your Relationship Status? Information not available 02/02/2025 Do You Use Your Seat Belt Or Car Seat Routinely? Yes Information not available 02/02/2025 Do You Have Smoke And Carbon Monoxide Detectors In Your Home? Yes Information not available 02/02/2025 Has Tobacco Cessation Counseling Been Provided? No Information not available 02/02/2025 Sex: Unknown Functional Status Question Answer Note LastModified by Organizat ion Details LastModified Time Do you use any illicit or recreational drugs? No Information not available 06/11/2025 Do you or have you ever used any other forms of tobacco or nicotine? No Information not available 02/02/2025 What is your level of alcohol consumption? None Information not available 02/02/2025 Are you currently employed? Yes Information not available 02/02/2025 Are you able to care for yourself independently? 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 Occasional Information not available 02/02/2025 Mental Status Question Answer Note LastModified by Organization D etails LastModified Time Do you feel stressed (tense, restless, nervous, or anxious, or unable to sleep at night)? [id number] Information not available 02/02/2025 Family History Relationship Description Onset Age of this Age Resolved Age Notes LastModified by Organization Details LastModified Time Paternal Grandfather Diabetes mellitus [email or web address] Not available 2024 15:07:04 Maternal Grandmother Hypertensive disorder [email or web address] Not available 2024 15:07:20 Medical History Condition Response Coronary Artery Disease N Other N Atrial Fibrillation N High Blood Pressure Y Thyroid Problems N Kidney or Bladder Problems Y Depression N COPD N Blood Clots N GI Problems Y Have you had a mammogram in the last yea r? N Skin Problems N Anemia Y Heart Attack ([place]) N Diabetes Y Anxiety Disorder N Muscle, Joint, or Bone Problems N Seizures/Epilepsy N Have you had a colonoscopy in the last 1 0 years? N Acid Reflux (GERD) N Cancer N Stroke N Allergies N Asthma N Have you had a PSA blood test in the las t year? Y High Cholesterol N Hepatitis N Liver Disease N Headaches N Osteoporosis N Heart Failure N Immunizations Vaccine Type Date Status Note Provider Nam e and Address Organization Details Recorded Time COVID-19, mRNA, LNP-S, PF, 30 mcg/0.3 mL dose, sha-sucrose 08/18/2021 completed Not Available [facility] 16:03:17 COVID-19, mRNA, LNP-S, PF, 30 mcg/0.3 mL dose, sha-sucrose 09/10/2021 completed Not Available [facility] 16:03:17 Influenza, split virus, quadrivalent, PF 07/18/2022 completed Not Available [facility] 16:03:17 HepB-CpG 10/30/2023 completed Not Available [facility] 03/12/2025 16:03:17 HepB-CpG 12/07/2023 completed Not Available [facility] 03/12/2025 16:03:17 Past Encounters Encounter ID Performer Location Encounter Start Date Encounter Closed Date Diagnosis/Indication Diagnosis SNOMED-CT Code Diagnosis ICD10 Code Diagnosis IMO Codes Diagnosis Note [id number] Thomas Brewer MD [facility] (Adult Med) [address] [place] [address] 02/02/2025 14:53:18 02/02/2025 16:00:10 Essential hypertension 56108411 I10 437461 Diabetes mellitus 825820 09 E11.9 26821 Obese class I 2819617688 63457 E66.811 5089904421 Screening for malignant neoplasm of colon 146651436 Z12.11 714883 [id number] Thomas Brewer MD [facility] [employer] [address] [place] [address] 03/12/2025 16:02:55 03/12/2025 17:31:19 Obese class I 5348900759 01996 E66.811 E66.3 3795127700 BMI 33.2 Essential hypertension 47960073 I10 782586 Diabetes mellitus 699112 09 E11.9 36284 Mixed hyperlipidemia 267 143608 E78.2 65471 [id number] Thomas Brewer MD [facility] (Adult [facility]) [address] [place] [address] 05/23/2025 09:53:42 05/23/2025 10:37:28 Obesity caused by energy imbalance 432125691 E66.811 E66.09 Z68.32 51186816 BMI 33.2 Abscess of scrotum 48825 006 N49.2 274113 [id number] Thomas Brewer MD [facility] [employer] [address] [place] [address] 06/11/2025 09:58:28 06/11/2025 10:49:25 Obese class I 9099702898 57364 E66.811 E66.3 5674386057 BMI 33.2 Abscess of scrotum 73521 006 N49.2 795315 Health Concerns Section Related Observation LastModified by Organization Detai ls LastModified Time None Recorded Concern Status LastModified by Organization Details LastModified Time None Recorded Advance Directives Directive N: Payers Insurance Date Sequence Insurance Name Policy Number Policy Castro Covered Member ID Castro Member ID Guarantor Name 06/09/2025 1 [employer] - ALLIED BENEFITS - OPEN ACCESS [id number] Nieves Jara [id number] Jose Jara Notes Date Note Type Note Provider Name and Address Organization Details Recorded Time 02/02/2025 text/html 54-year-old kind of a poor historian tells me that he has got high blood pressure and that he has end-stage renal disease on dialysis and then when I query him about other medical problems he does not admit to any I asked him if he has diabetes which he denied but then subsequently challenged him on insulin then has been prescribed in the past and then he said yes I do have diabetes. He comes in to establish care lisinopril 20 mg daily [address] he says 2 tablets twice a day does not know dose calcitriol daily does not know dose he does know that his kidney doctor is Dr. 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 Has not had colon cancer screening Thomas Brewer MD Attn: Accounting,[address] [place], [address], [facility] 02/03/2025 13:19:34 03/12/2025 text/html Saw endo and is getting set up with more aggressive blood sugar control today's blood pressure 142/70 he is trying to eat better dyslipidemia he is taking his atorvastatin he has not any no hypoglycemic spells Thomas Brewer MD Attn: Accounting,[address] [place], [address], [facility] 04/09/2025 13:55:42 05/23/2025 text/html He has got a knot between his scrotum and anus tender couple of days Tohmas Brewer MD Attn: Accounting[address] [place], [address], [facility] 05/26/2025 18:07:29
--- OUTSIDE RECORDS SUMMARY | 2025-06-19 00:37 | XMS_ITS | Clinical Summary ---
Author Organization [facility] alexis Address [address] [place] [address] Phone Care Team Providers Care Police Lieutenant Name Role Phone Kate De La Fuente MD Primary Care Provider [phone] Allergies No known active allergies Medications Santyl [...] Done Comments Influenza Vaccine (#1) 2025 Insurance [facility] Care Teams Police Lieutenant Relationship Specialty Start Date End Date Kate De La Fuente MD [place] [facility] [place] [address] PCP - General Internal Medicine 10/03/20
--- OUTSIDE RECORDS SUMMARY | 2025-06-19 00:37 | XMS_ITS ---
Author Organization [facility] Address [address] [place] [address] Care Team Providers Care Pharmaceutical Physician Name Role Phone Tesha Carranza MD Unavailable Lee Arriola MD Unavailable [phone] Danni Terrazas RN Unavailable [phone] Franky Brewer MD Primary Care Provider [phone] Transplant Episode Kidney Candidate [facility] ([place], [place] - [facility] Evaluation began on 03/23/2024 Marked as Active on 03/23/2024 Reason: Evaluation - Standard Kidney CoordinatorDanni Terrazas RN Email: N/A Scores Score Value Updated Exceptions/Reas ons CPRA Not available EPTS (Calc) 61 06/19/2025 Care Team Name Role Phone Fax Email Danni Terrazas RN Kidney Coordinator [phone] N/A Danny Le Law Librarian N/A N/A N/A Lee Arriola MD Referring Physician [phone] N/A Xiao Manuel Primary Sql Server Dba N/A N/A N/A Events Pre-Transplant Referred: 10/22/2023 Evaluation began: 03/23/2024 Dialysis History Dialysis History Start End Type Comments Center 10/28/2023 Hemodialysis TTS 11:00am Dr Lee Arriola - visual 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
--- OUTSIDE RECORDS SUMMARY | 2025-06-19 00:38 | XMS_ITS | Clinical Summary ---
Author Organization [facility] Address [address] [place] [address] Care Team Providers Care Retail Merchandising Coordinator Name Role Phone Unavailable Primary Care Provider Unavailabl e Source Comments [facility],non-owned Affiliates and Associated Physician Practices is amultiple site organization consisting of ambulatory clinics and hospital sitesin [place], [place], [place] and [place]. This disclosure is being madepursuant to the Care Everywhere program and may not contain all information available regarding this patient. Last updated 18.[facility] Social History Tobacco Use Types Packs/Day Years [...] patient's age to complete this topic Insurance [facility]
--- OUTSIDE RECORDS SUMMARY | 2025-06-19 00:38 | XMS_ITS | Clinical Summary ---
Author Organization [facility] Address [address] [place] [address] Care Team Providers Care Fingerprint Classifier Name Role Phone Tesha Carranza MD Unavailable Lee Arriola MD Unavailable [phone] Danni Terrazas RN Unavailable [phone] Franky Brewer MD Primary Care Provider [phone] Allergies No known active allergies Medications cholecalcifero [...] 4:41 PM CDT): Required blood transfusion at [place] for presenting Hgb 6.7. Now improved. Work-up [...] to underlying renal disease - TTE from [place] EF 55-60%, no major significant valvular abnormalities [...] 5:02 PM CDT): Patient presented to [facility] with creatinine of 6.80. Prior Cr was 1.88 in Care Everywhere note in 2020. Was >7 on presentation to [facility] on 10/05. Patient has a history of [...] any lung symptoms. - chest x-ray [facility] with no infiltrates - got 1 additional day of cefdinir here (10/15) - stopped antibiotics Encounters Date Type Department Care Team Description 04/13/2025 Telephone [facility] [address] [address] William Reno MD Med Management (FSL3+ ) 04/13/2025 Telephone [facility] [address] [address] William Reno MD Med Management (Charles MCKEON) 04/06/2025 9:00 AM CDT Lab [address] [address] Type 2 diabetes mellitus with chronic kidney disease on chronic dialysis, with long-term current use of insulin (HCC); Hyperlipidemia associated with type 2 diabetes mellitus (HCC); Hypertension associated with diabetes (HCC) 04/06/2025 8:45 AM CDT Office [facility] [address] [address] William Reno MD Type 2 diabetes mellitus with chronic kidney disease on chronic dialysis, with long-term current use of insulin (HCC) (Primary Dx); Hypertension associated with diabetes (HCC); Hyperlipidemia associated with type 2 diabetes mellitus (HCC) 04/06/2025 Results Follow-Up [facility] [address] [address] William Reno MD Lipid panel, [...] Tobacco: Never Tobacco Cessation:Counseling Given: Not Answered [facility] Utilities Answer Date Recorded In the past 12 months has e [employer], gas, oil, or water [employer] threatened to shut off services in your [...] often do you attend chur ch or yazidi services? 1 to 4 times per year 06/12/2024 Do you belong to any clubs o r organizations such as worship groups, unions, fraternal or athletic groups, or [...] place to sleep or slept in a residential (including now)? No 10/27/2023 Personal Safety Answer Date Recorded Have you ever been in or are you currently in a harmful physical or emotional relationship or is someone making you feel afraid or unsafe? 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 Gender Identity Not on file Sexual Orientation Not on file Last Filed Vital Signs Vital Sign Reading Time Taken Comments Blood Pressure 132/86 04/06/2025 8:27 AM CDT Pulse 96 04/06/2025 8:27 AM CDT Temperature 36.7 C (98.1 F) 06/12/2024 1:42 PM COMPOUND MIXER Respiratory Rate 15 02/23/2025 11:47 AM CDT [...] PCV) 1991 Zoster Vaccine (1 of 2) 1991 Covid-19 Vaccine (3 - Pfizer risk series) 10/08/2021 09/10/2021, 08/18/2021 Influenza Vaccine (#1) 2025 07/18/2022 Hemoglobin A1C 10/06/2025 04/06/2025, 07/1 03/2025, 06/12/2024, Additional history exists Lipid Panel 04/06/2026 04/06/2025, 06/12/2024 eGFR 04/06/2026 04/06/2025, 11/0 11/2023, 10/25/2023, Additional history exists Prostate Cancer Screening-PSA 06/12/2026 06/12/2024 Hepatitis B Screening Completed 06/12/2024 , 12/07/2023, 10/30/2023 Hepatitis C Screening Completed 06/12/2024 Medical Devices Explanted Type Area Child Development Instructor Device Identifier Shelf Expiration Date Model / Serial / Lot [facility] [employer]low Embosafe 15.5fr 28cm Basic 2 Lumen Kit Catheter [id number] - [id number] Explanted:Qty: 1 on 10/20/2023 at [facility] 12/06/2025 [id number] / / [id number] Procedures Procedure Name Priority Date/Time Associated Diagnosis [...] HEPATITIS C ANTIBODY Routine 06/12/2024 10:14 AM COMPOUND MIXER End stage renal disease (HCC) PSA SCREEN Routine 06/12/2024 10:14 AM COMPOUND MIXER End stage renal disease (HCC) from Last 3 Months or Most Recently Relevant to Health Maintenance Results * (ABNORMAL) eGFR (04/06/2025 8:58 AM CDT) [facility] eGFR 9(L) >=60 mL/min/1. 73 m2 Comment: [...] AM CDT 04/06/2025 12:01 PM CDT us Cloverja Gilbert Hunt MD LAB BLOOD ORDERABLE S Final Result [facility] [address] [address] [place] [address] * (ABNORMAL) Lipid panel (04/06/2025 [...] MD LAB BLOOD ORDERABLE S Final Result [facility] [address] [address] Department [place] [address] * (ABNORMAL) Comprehensive metabolic panel (04/06/2025 8:58 AM CDT) Sodium 139 135 - 145 mmol/L Potassium, pl 4.9 3.3 - 4.9 mmol/L [facility] Chloride 97 97 - 110 mmol/L [facility] CH CO2 25 22 - 32 mmol/L [facility] CH Anion gap 17(H) 2 - 15 mmol/L [facility] BUN 38(H) 6 - 25 mg/dL [facility] Creatinine 6.97(H) 0.80 - 1.30 mg/dL [facility] Glucose 249(H) 70 - 199 mg/dL [facility] Comment: Interpretive Data Fasting glucose >/= 126 [...] classification and Diagnosis of Diabetes Diabetes Care 2021; 46: S19-S40. Current interpretive data was last [...] LAB BLOOD ORDERABLE S Final Result [facility] [address] [address] Department [place] [address] * (ABNORMAL) POCT hemoglobin A1c (04/06/2025 8:29 [...] * (ABNORMAL) PSA screen (06/12/2024 10:14 AM COMPOUND MIXER) PSA-Total 5.84(H) <=3.90 ng/mL Comment: Interpretive Data [...] revised 21. Blood 06/12/2024 10:1 4 AM COMPOUND MIXER 06/12/2024 11:37 AM COMPOUND MIXER Narrative [facility] - 06/12/2024 12:13 PM COMPOUND MIXER This lab is being obtained as part of a Kidney transplant evaluation, is time sensitive, and should only be drawn during the evaluation visit at [address] Lab. Carlitos Glover MD LAB BLOOD ORDERABLES Final Resu lt Performing Organization Address [facility] Co de Phone Number [facility] Department [place] [address] * Hepatitis C antibody Blood (06/12/2024 10:14 AM COMPOUND MIXER) [facility] Hep C Ab Nonreactive Nonreactive Comment:Antibodies to HCV no t detected. Does NOT exclude the possibility of recent exposure to HCV. Current interpretive data was last revised on 22 Blood 06/12/2024 10:1 4 AM COMPOUND MIXER 06/12/2024 11:39 AM COMPOUND MIXER Narrative [facility] 06/12/2024 12:37 PM COMPOUND MIXER This lab is being obtained as part of a Kidney transplant evaluation, is time sensitive, and should only be drawn during the evaluation visit at [address] Carlitos Glover MD LAB MICROBIOLOGY - GENERAL ORDE RABLES Final Result Performing Organization Address City/[facility]/ZIP Co de Phone Number [facility] [place] [address] from Last 3 Months or Most Recently Relevant to Health Maintenance Insurance MEDICARE [employer] [facility] MEDICARE Advance Directives For more information, please contact: [phone] * Full Code (Latest Code Status on File) Date Activated Date Inactivated Comments 10/16/2023 5:48 AM 10/26/2023 8:33 PM Care Teams Fingerprint Classifier Relationship Specialty Start Date End Date Franky Brewer MD [address] [place] [address] PCP - General Internal Medicine 02/07/25 Tesha Carranza MD [address] [place] [address] Resident General Surgery 01/25/24 Lee Arriola MD [address] [place] [address] Referring Physician Nephrology 03/17/24 Danni Terrazas, RN [address] [place] [address] Energy Consultant 03/17/24
--- OUTSIDE RECORDS SUMMARY | 2025-06-19 00:38 | XMS_ITS | Clinical Summary ---
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
--- OUTSIDE RECORDS SUMMARY | 2025-06-19 00:38 | XMS_ITS | Data Portability ---
Author Organization [facility], Main Office Address [address] [place] [address] Assessment No assessment recorded. Plan of Treatment Reminders Order Date Submit Date Provider Last Modified By Organization Details Last Modified Time Details Appointments None recorded. Lab hemoglobin A1C, fingerstick 2024 025 HERIBERTO On license of [facility], [address] [place], [address], 11:28:01 PSA, serum or plasma 2024 025 [email or web address] 4 [facility] ([facility] [address] [place], [address], 17:59:56 Referral None recorded. Procedures None recorded. Surgeries None recorded. Imaging None recorded. Medication Orders None recorded. Patient TargetsNo targets recorded. Patient InstructionsNo instructions recorded. Reason for Referral None Reported. Results Created Date Observation Date Name Description Value Unit Range Abnormal Flag Note LastModifiedBy Organization Detail LastModifiedTime 11/28/1911/27/2024 hemog lobin A1C, finge rstic k HgbA1C 8.6 Not Available On license of [facility] [address] [place], [address], 11/20/2024 10:27:42 Result Notes None recorded. Problems Name Problem SNOMED Code Status Onset Date Resolution Date Notes Provider Name and Address Organization Details Recorded Time Screening for malignant neoplasm of prostate Active 2024 LINDA Velazco [address] [facility], [place], [address] , [facility] [employer] 5 10:26:36 Renal disorder due to type 2 diabetes mellitus 564912965 Active [address] [facility], [facility] [address], [place], [address], [facility] 5 10:27:17 Adult health examination Active 2024 LINDA Velazco [address], [place], [address], [facility] 5 10:30:29 Notes:kidney failure stage 5 Problem Notes None recorded. Procedures Surgical History Date Name Laterality Status Provider Name and Address Organization Details Recorded Time 4 Fistula repair transperine completed TONI Moreira [facility] 11/20/2024 10:16:06 Imaging Results None recorded. Procedure Notes None recorded. Medical Equipment None Reported. Allergies No known drug allergies Medications Name Sig Start Date Stop Date Status Note LastModified by Organization Details LastModified Time nifedipine ER 30 mg tablet,exten ded release 24 hr TAKE 1 TABLET BY MOUTH ONCE DAILY 11/20 completed Not Available Not Available Not Available tamsulosin 0.4 mg capsule TAKE 1 CAPSULE BY MOUTH IN THE EVENING 30 MINUTES AFTER DINNER active Not Available Not Available No t Available sevelamer carbonate 800 mg tablet TAKE 3 TABLETS BY MOUTH THREE TIMES DAILY WITH MEALS active Not Available Not Available No t Available Vitals Date Recorded Body weight Body mass index (BMI) Body height Body temperature Heart rate Oxygen saturation Oxygen saturation in Arterial blood by Pulse oximetry Systolic And Diastolic Provider Name and Address Organization Details Last Updated DateTime 5 092194. 09 g 32.1 kg/m2 187.96 cm 98 [degF] 86 /min 97 % 97 % 160/88 mm[Hg] TONI Moreira [facility] 5 10:19:50 Social History Question Answer Notes LastModified by Organizat ion Details LastModified Time Tobacco Smoking Status Never Smoker TONI Moreira [facility] [employer] [facility] 11/20/2024 10:13:29 Do You Have An Advance Directive? No Information not available 11/20/2024 What Is Your Level Of Caffeine Consumption? None Information not available 11/20/2024 In The 14 Days Before Symptom Onset, Have You Had Close Contact With A Laboratory-confir med COVID-19 While That Case Was Ill? No Information not available 11/20/2024 In The 14 Days Before Symptom Onset, Have You Had Close Contact With A Person Who Is Under Investigation For COVID-19 While That Person Was Ill? No Information not available 11/20/2024 What Type Of Diet Are You Following? REGULAR Information not available 11/20/2024 What Is The Highest Grade Or Level Of School You Have Completed Or The Highest Degree You Have Received? [id number] Information not available 11/20/2024 Have There Been Any Changes To Your Family Or Social Situation? No Information no t available 11/20/2024 What Is The Fluoride Status Of Your Home? Unknown Information not available 11/20/2024 Do You Use Insect Repellent Routinely? No Information not available 11/20/2024 Where Do You Live? SingleLevelHouse Information not available 11/20/2024 Do You Have Any Pets? No Information not available 11/20/2024 What Is Your Relationship Status? Information not available 11/20/2024 Do You Use Your Seat Belt Or Car Seat Routinely? Yes Information not available 11/20/2024 Do You Participate In Social Media? Yes Information not available 11/20/2024 Do You Use Sunscreen Routinely? No Information not available 11/20/2024 Have You Recently Traveled Abroad? No Information not available 11/20/2024 Sex: Unknown Functional Status Question Answer Note LastModified by Organizat ion Details LastModified Time Do you use any illicit or recreational drugs? No Information not available 11/20/2024 What is your level of alcohol consumption? None Information not available 11/20/2024 Are you currently employed? 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 Occasional Information not available 11/20/2024 Mental Status Question Answer Note LastModified by Organization D etails LastModified Time Do you feel stressed (tense, restless, nervous, or anxious, or unable to sleep at night)? LV1025-5 Information not available 11/20/2024 Family History Nothing Reported. Medical History Condition Response HAVE YOU BEEN HOSPITALIZED OR SEEN IN TH E ER IN THE PAST YEAR ? N HEADACHES/MIGRAINES N KIDNEY DISEASE Y Past Encounters Encounter ID Performer Location Encounter Start Date Encounter Closed Date Diagnosis/Indication Diagnosis SNOMED-CT Code Diagnosis ICD10 Code Diagnosis IMO Codes Diagnosis Note [id number] Abdirashid Hughes MD S_G [address] [address] 11/20/2024 10:00:33 11/20/2024 10:41:45 Screening for malignant neoplasm of prostate 203850659 Z12.5 Renal diso rder due to type 2 diabetes mellitus 639840748 E11.21 Adult heal th examination 357485862 Z00.00 Health Concerns Section Related Observation LastModified by Organization Detai ls LastModified Time None Recorded Concern Status LastModified by Organization Details LastModified Time None Recorded Advance Directives Directive N: Payers Insurance Date Sequence Insurance Name Policy Number Policy Castro Covered Member ID Castro Member ID Guarantor Name 11/20/2024 1 [place]ARE) Jose Jara [id number] Jose Jara 01/23/2025 1 [employer] - ALLIED BENEFITS - OPEN ACCESS Jose Jara [id number] Jose Jara Notes Date Note Type Note Provider Name and Address Organization Details Recorded Time 11/20/2024 text/html ROS as noted in the HPI was diabetic . Was seeing Holly De La Fuente . dialysis , th , and sat . Dr. Flako Diego, LINDA [address] [facility] [address], [place], [address], [facility] [place] 11/30/2024 16:26:47
--- OUTSIDE RECORDS SUMMARY | 2025-06-19 00:38 | XMS_ITS ---
Author Organization [facility] Address [address] [place] [address] Care Team Providers Care Maritime Guard Name Role Phone Tesha Carranza MD Unavailable Lee Arriola MD Unavailable [phone] Danni Terrazas RN Unavailable [phone] Franky Brewer MD Primary Care Provider [phone] Dialysis Access Sites Type Status Location Placement [...] HEPATITIS C ANTIBODY Routine 06/12/2024 10:14 AM AIR DIRECTOR End stage renal disease (HCC) PSA SCREEN Routine 06/12/2024 10:14 AM AIR DIRECTOR End stage renal disease (HCC) from Last [...] 4:41 PM CDT): Required blood transfusion at [place] for presenting Hgb 6.7. Now improved. Work-up [...] to underlying renal disease - TTE from [place] EF 55-60%, no major significant valvular abnormalities [...] (10/26/2023 5:02 PM CDT): Patient presented to [facility] with creatinine of 6.80. Prior Cr was 1.88 in Care Everywhere note in 2020. Was >7 on presentation to [facility] on 10/05. Patient has a history [...] having any lung symptoms. - chest x-ray [facility] with no infiltrates - got 1 additional day of cefdinir here (10/15) - stopped antibiotics Social History Tobacco Use Types Packs/Day Years Used Date Smoking Tobacco: Never Passive Smoke Exposure: Never Smokeless Tobacco: Never Tobacco Cessation:Counseling Given: Not Answered [facility] Utilities Answer Date Recorded In the past 12 months has th e Setup, gas, oil, or water [employer] threatened to shut off services in your [...] often do you attend chur ch or shinto services? 1 to 4 times per year [...] place to sleep or slept in a [facility]p (including now)? No 10/27/2023 Personal Safety Answer Date Recorded Have you ever been in or are you currently in a harmful physical or emotional relationship or is someone making you feel afraid or unsafe? Denies 01/25/2024 Sex and Gender Information Value Date Recorded Sex Assigned at Not on file Legal Sex Male 9:39 AM AIR DIRECTOR Gender Identity Not on file Sexual Orientation Not on file Last Filed Vital Signs Vital Sign Reading Time Taken Comments Blood Pressure 132/86 04/06/2025 8:27 AM CDT Pulse 96 04/06/2025 8:27 AM CDT Temperature 36.7 C (98.1 F) 06/12/2024 1:42 PM AIR DIRECTOR Respiratory Rate 15 02/23/2025 11:47 AM CDT [...] LAB BLOOD ORDERABLE S Final Result [facility] [address] [address] Department [place] [address] * (ABNORMAL) Lipid panel (04/06/2025 [...] LAB BLOOD ORDERABLE S Final Result [facility] [address] [address] Department [place] [address] * (ABNORMAL) Comprehensive metabolic panel (04/06/2025 [...] LAB BLOOD ORDERABLE S Final Result [facility] [address] [address] Department [place] [address] * (ABNORMAL) POCT hemoglobin A1c (04/06/2025 8:29 [...] * (ABNORMAL) PSA screen (06/12/2024 10:14 AM AIR DIRECTOR) [facility] PSA-Total 5.84(H) <=3.90 ng/mL Comment: Interpretive Data [...] revised 21. Blood 06/12/2024 10:1 4 AM AIR DIRECTOR 06/12/2024 11:37 AM AIR DIRECTOR Narrative [facility] - 06/12/2024 12:13 PM AIR DIRECTOR This lab is being obtained as part of a Kidney transplant evaluation, is time sensitive, and should only be drawn during the evaluation visit at [facility] 3C Lab. Carlitos Glover MD LAB BLOOD ORDERABLES Final Resu lt [facility] [place] [address] * Hepatitis C antibody Blood (06/12/2024 10:14 AM AIR DIRECTOR) [facility] Hep C Ab Nonreactive Nonreactive Comment:Antibodies to HCV no t detected. Does NOT exclude the possibility of recent exposure to HCV. Current interpretive data was last revised on 22 Blood 06/12/2024 10:1 4 AM AIR DIRECTOR 06/12/2024 11:39 AM AIR DIRECTOR Narrative [facility] - 06/12/2024 12:37 PM AIR DIRECTOR This lab is being obtained as part of a Kidney transplant evaluation, is time sensitive, and should only be drawn during the evaluation visit at [facility] 3CAM Lab. Carlitos Glover MD LAB MICROBIOLOGY - GENERAL KD CASTILLO Final Result [facility] Department [place] [address] from Last 3 Months or Most Recently Relevant to Health Maintenance
[2025-06-19 13:22] VITALS: BP 135/78; PULSE 84; RESP 16; TEMP 36.4; O2SAT 100
[2025-06-19] MEDS: SODIUM CHLORIDE 0.9% IV 500 ML 10 ML IV CONT (13:32)
--- NOTE | 2025-06-19 13:48 | PM.IMHP ---
H&P: HPI History of Present Illness Date/Time: 06/19/25 13:48 Chief Complaint: Screening for colorectal cancer Narrative: This is a 55-year-old man who presents for colonoscopy. He has never had a colonoscopy before. He denies any hematochezia or melena. He denies family history of colon cancer. Review of Systems Review of Systems: All systems reviewed & are unremarkable except as noted in HPI and below Constitutional: Constitutional: Denies chills, Denies fever(s), Denies headache(s) and Denies weight loss Eyes: Eyes: Denies change in vision ENT: Denies dizziness, Denies headache(s), Denies neck mass and Denies throat swelling Cardiovascular: Cardiovascular: Denies chest pain, Denies lightheadedness and Denies dyspnea Respiratory: Respiratory: Denies cough, Denies dyspnea and Denies wheezing Gastrointestinal: Gastrointestinal: Denies abdominal pain, Denies change in bowel habits, Denies nausea and Denies vomiting Genitourinary: Genitourinary: Denies hematuria and Denies dysuria Musculoskeletal: Musculoskeletal: Reports as per HPI Integumentary/Breasts: Skin/Breast: Reports as per HPI Neurologic: Denies dizziness and Denies headache(s) Allergic/Immunologic: Allergic/Immunologic: Denies throat swelling and Denies wheezing [facility] Past Medical History Medical History End stage renal disease Obesity (BMI 30.0-34.9) Diabetic retinopathy Type 2 diabetes mellitus Hyperlipidemia Hypertension Surgical History Surgical History Proliferative diabetic retinopathy with history of surgery Family History Family History Mother Thyroid disease Sibling Thyroid disease Father Diabetes mellitus End stage renal disease Hypertension Social History Social History Social History: Patient lives at home with his 24 years. 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 They have (I think he has had 2 children) who are healthy. He is a lifelong nonsmoker. He does not have any significant out alcohol or illicit substance use history. Code status: Full code Surrogate decision maker: Smoking status: Never smoker Alcohol intake: never Substance use: never Do You Feel Safe in your Home?: Yes Lack of Transportation: No Lack of Food: Never True Current Housing: I Have Housing Concerned About Future Housing: No Difficulty Paying Gas/Electric Bills: No Difficulty Paying for Meds: No Currently Unemployed: No Education: High School Diploma/GED Difficulty w/ Childcare or Family Care: No Living arrangements: with family Occupation/Education: occupation Gender identity (if verbalized by the patient): Male Sexual Orientation (if Verbalized by the Patient): Straight or Heterosexual Spiritual care concerns: No Meds Home Medications and Allergies Home Medications ?Medication ?Instructions ?Recorded ?Confirmed ?Type atorvastatin 20 mg tablet 20 mg PO DAILY 05/27/25 06/19/25 History calcium carbonate (Oyster Shell 500 mg PO DAILY 05/27/25 06/19/25 History Calcium 500) ergocalciferol (vitamin D2) 1,250 1,250 mcg PO DAILY 05/27/25 06/19/25 History mcg (50,000 unit) capsule furosemide 80 mg tablet 80 mg PO DAILY 05/27/25 06/19/25 History insulin aspart U-100 100 unit/mL 10 unit subcut TID 05/27/25 06/19/25 History (3 mL) subcutaneous pen insulin glargine-yfgn 100 unit/mL 25 unit subcut DAILY@1000 05/27/25 06/19/25 History (3 mL) subcutaneous pen lisinopril 20 mg tablet 20 mg PO DAILY 05/27/25 06/19/25 History Allergies Allergy/AdvReac Type Severity Reaction Status Date / Time No Known Allergies Allergy Unknown Verified 06/19/25 13:19 Vital Signs Vital Signs - 24 hr 06/19/25 13:22 Temperature 97.5 F L Pulse Rate 84 Respiratory Rate 16 Blood Pressure 135/78 Pulse Oximetry 100 Oxygen Delivery Room Air Exam Const: General: no acute distress and alert Orientation/consciousness: patient oriented x3 HENMT: Head: normocephalic and atraumatic Ears: hearing grossly normal bilaterally Face/Nose/Sinus: Normal nares present Mouth: Yes Normal oral and palatal mucosa present Eyes: Periorbital: periorbital findings normal Sclera: sclerae normal EOM: EOMs intact bilaterally Neck: Neck: normal visual inspection, no lymphadenopathy and trachea midline Chest: Chest palpation & inspection: normal inspection of the chest Resp: Effort & Inspection: normal respiratory effort Auscultation: clear to auscultation bilaterally Cardio: Jugular venous distension: no JVD Rate: regular rate Rhythm: regular rhythm Heart sounds: S1 normal heart sound present and S2 normal heart sound present Peripheral pulses: Peripheral pulses 2+ throughout GI: Inspection: normal to inspection GI Palp: Yes Soft to palpation, No Tenderness to palpation present (GI), No Guarding due to palpation present (GI) and No Rebound tenderness present Percussion: Yes normal to percussion Auscultation: normal bowel sounds : General: Yes no CVA tenderness Back/Spine/Pelvis: Back: no CVA tenderness Neuro: General: patient oriented x3, no focal motor deficits and CN's II-XI intact bilaterally Cognition (Neuro): normal cognition Speech: normal speech Motor exam (neuro): 5/5 motor strength present throughout Extrem: General: capillary refill normal and no clubbing, cyanosis or edema Assessment and Plan Assessment and plan (1) Screening for colorectal cancer: Code(s): Z12.11 - Encounter for screening for malignant neoplasm of colon; Z12.12 - Encounter for screening for malignant neoplasm of rectum Status: Acute Assessment and Plan: I have recommended colonoscopy. I have discussed the procedure, risks, benefits, and alternatives. Questions were answered. Patient is agreeable to proceed.
--- NOTE | 2025-06-19 13:57 | WPDANESEPPF ---
Anes - Initial Pre Proc Eval Procedure: Operation Date: 06/19/25 13:30 Proposed Procedures p Screening Colonoscopy - Bautista Rivera DO Date/Time: 06/19/25 13:57 Surgeon: Bautista Rivera DO Pre Op Diagnosis: Neoplasm screening Patient Data Age: 55 Gender: M Height: 1.88 m Weight: 113 kg Last Vital Signs Temp 36.4 C L 06/19/25 13:22 Pulse 84 06/19/25 13:22 Resp 16 06/19/25 13:22 BP 135/78 06/19/25 13:22 Pulse Ox 100 06/19/25 13:22 O2 Del Method Room Air 06/19/25 13:22 Allergies Allergy/AdvReac Type Severity Reaction Status Date / Time No Known Allergies Allergy Unknown Verified 06/19/25 13:19 Home Medications ?Medication ?Instructions ?Recorded ?Confirmed ?Type atorvastatin 20 mg tablet 20 mg PO DAILY 05/27/25 06/19/25 History calcium carbonate (Oyster Shell 500 mg PO DAILY 05/27/25 06/19/25 History Calcium 500) ergocalciferol (vitamin D2) 1,250 1,250 mcg PO DAILY 05/27/25 06/19/25 History mcg (50,000 unit) capsule furosemide 80 mg tablet 80 mg PO DAILY 05/27/25 06/19/25 History insulin aspart U-100 100 unit/mL 10 unit subcut TID 05/27/25 06/19/25 History (3 mL) subcutaneous pen insulin glargine-yfgn 100 unit/mL 25 unit subcut DAILY@1000 05/27/25 06/19/25 History (3 mL) subcutaneous pen lisinopril 20 mg tablet 20 mg PO DAILY 05/27/25 06/19/25 History Laboratory Tests 06/19/25 13:29 POC Capillary Glucose 92 mg/dl (65-105) Patient hx anesthesia problems: none Family hx anesthesia problems: none Results Review: All pre-operative results and documents have been reviewed as part of the pre-operative evaluation. [facility] Past Medical History Medical History End stage renal disease Obesity (BMI 30.0-34.9) Diabetic retinopathy Type 2 diabetes mellitus Hyperlipidemia Hypertension Surgical History Surgical History Proliferative diabetic retinopathy with history of surgery Family History Family History Mother Thyroid disease Sibling Thyroid disease Father Diabetes mellitus End stage renal disease Hypertension Social History Social History Social History: Patient lives at home with his 24 years. 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 They have (I think he has had 2 children) who are healthy. He is a lifelong nonsmoker. He does not have any significant out alcohol or illicit substance use history. Code status: Full code Surrogate decision maker: Smoking status: Never smoker Alcohol intake: never Substance use: never Do You Feel Safe in your Home?: Yes Lack of Transportation: No Lack of Food: Never True Current Housing: I Have Housing Concerned About Future Housing: No Difficulty Paying Gas/Electric Bills: No Difficulty Paying for Meds: No Currently Unemployed: No Education: High School Diploma/GED Difficulty w/ Childcare or Family Care: No Living arrangements: with family Occupation/Education: occupation Gender identity (if verbalized by the patient): Male Sexual Orientation (if Verbalized by the Patient): Straight or Heterosexual Spiritual care concerns: No Anes - Eval Final PreProcedure Day of Procedure 06/19/25 13:57 Patient weight: obese Heart: regular rate and rhythm Lungs: clear to auscultation Airway: Mallampati scale class II Neurological: alert and oriented Last oral intake: >/= 8 hours ASA classification: IV Emergent: no Anesthetic plan: proceed Anesthesia type and monitoring: general GIVS and standard monitoring Results Review: All pre-operative results and documents have been reviewed as part of the pre-operative evaluation. Informed Consent: The patient's anesthetic plan and its attendant risks and benefits were discussed with the patient/family/POA. Questions were solicited and answers provided to the satisfaction of the patient/family/POA.
--- NOTE | 2025-06-19 14:15 | S_PTH ---
PATIENT: Jose Jara LOC: [facility] U#:[id number] AGE/SX: 55/M ROOM: RE06/19/[address]: Bautista Rivera DO : 1970 BED: DIS: 06/19/2025 SPEC #: [id number] RECD: 06/20/25 07:54 STATUS: DANIELLE REQ #: [id number] GERMAN: 06/19/25 14:[address]: Bautista Rivera DEPT: [facility] Surgical RECD BY: January Merchant ENTERED: 06/20/25 07:55 SP TYPE: Surgical OTHR DR: Franky Brewer, Tissues: A - Colon Polypectomy Procedures: Hematoxylin and Eosin Stain Gross and Microscopic Level 4
[2025-06-19 14:16] VITALS: BP 105/60; PULSE 76; RESP 14; O2SAT 98
[2025-06-19 14:26] VITALS: BP 110/65; PULSE 78; RESP 15; O2SAT 98
== END 2025-06-19 14:50 | disposition home or self-care (01) ==
PROVIDERS: PCP Internal Medicine; Visit Provider Surgery
PROC: 0DJD8ZZ Inspection of Lower Intestinal Tract, Via Natural or Artificial Opening Endoscopic (ICD-10-PCS; CPT 45378; principal; 2025-06-19 13:30)
DX: Z12.11 Encounter for screening for malignant neoplasm of colon (principal); D12.8 Benign neoplasm of rectum; K57.30 Diverticulosis of large intestine without perforation or abscess without bleeding; E78.5 Hyperlipidemia, unspecified; E11.22 Type 2 diabetes mellitus with diabetic chronic kidney disease; I12.0 Hypertensive chronic kidney disease with stage 5 chronic kidney disease or end stage renal disease; N18.6 End stage renal disease; E11.319 Type 2 diabetes mellitus with unspecified diabetic retinopathy without macular edema; E66.9 Obesity, unspecified; Z68.32 Body mass index [BMI] 32.0-32.9, adult; Z79.4 Long term (current) use of insulin; Z98.890 Other specified postprocedural states
CPT/HCPCS: 45380; 82948; 88305; J7040